=== PATIENT | female | born 2000 | race Caucasian/White ===

== ENCOUNTER 2024-10-05 09:25 | Emergency (ER) | payer MEDICAID, SELFPAY ==
[2024-10-05 09:27] VITALS: BP 123/56; PULSE 91; RESP 16; TEMP 36.4; O2SAT 98; BMI 36.6
--- NOTE | 2024-10-05 09:55 | US_ITS ---
STUDY: ABDOMINAL ULTRASOUND - RIGHT UPPER QUADRANT REASON FOR VISIT: Female, 24 years old Right upper quadrant pain, TECHNIQUE: Ultrasound evaluation of the right upper quadrant was performed with real-time and static buckley-scale imaging. TECHNICAL QUALITY: Adequate. COMPARISON: None. FINDINGS: Liver: The liver measures 15.6 cm. There is normal echogenicity of the liver. The bile ducts are within normal limits. There is hepatic color flow. The direction of portal flow is hepatopetal. There is no demonstrated mass lesion. Gallbladder: Normal distended gallbladder. The gallbladder wall measures 2.0 mm. There is a negative sonographic Fields''s sign. There is no pericholecystic fluid. There are no gallstones. Common Bile Duct (C.B.D.): The common bile duct measures 3.0 mm. Pancreas: Normal size of the head, body and tail of the pancreas. There is normal echogenicity of the pancreas. There is no demonstrated pancreatic mass or cyst. Right Kidney: Normal size of the right kidney. The right kidney measures 9.5 cm x 5.9 cm x 4.2 cm. Normal renal cortex. The right cortex measures 1.7 cm. There is no demonstrated renal mass or cyst. There is no right hydronephrosis. US/Gallbladder IMPRESSION: Normal right upper quadrant ultrasound examination. Electronically Signed: Felice Pineda MD at 11:16 EST ,
--- NOTE | 2024-10-05 10:00 | EDS_ITS ---
HPI History of Present Illness Chief Complaint: Abd Pain Narrative Narrative: Chief complaint and HPI: Right upper quadrant abdominal pain. 24-year-old female who is 17 weeks presents for evaluation of right upper quadrant abdominal pain. Patient does have gestational diabetes but otherwise has been unremarkable. Patient follows with [facility]. Patient states yesterday she developed some right upper quadrant abdominal pain that has worsened today. She has not taken anything for the pain. She endorses some baseline nausea. Denies any fever, chills, shortness of breath, chest pain, diarrhea, constipation, lower abdominal pain, vaginal bleeding, pelvic cramping. Review of systems: See HPI Medications: As listed on the chart Allergies: As listed on the chart PFSH: Per chart Vital signs: As listed on the chart. Reviewed. Physical exam: Gen: A&O x3, NAD Head: Normocephalic, atraumatic Eyes: No sclera icterus, conjunctiva clear ENT: Moist mucous membranes Neck: Trachea midline, No JVD CV: RRR, no murmurs, no peripheral edema Resp: Lungs CTA BL, no w/r/c GI: Abd soft, non-distended, tender to palpation in the right upper quadrant, negative Fields sign, negative McBurney, no r/r/g : No CVA tenderness Musc: Full ROM, no deformity Skin: Warm, dry Neuro: Alert, oriented, grossly intact, sensation intact Psych: Cooperative, appropriate mood and affect [facility] Allergy/AdvReac Type Severity Reaction Status Date / Time cephalexin (From Keflex) Allergy Mild Rash Verified 10/05/24 09:26 Social History Smoking Status: Never smoker EXAM Physical Exam Const Vital Signs: 10/05/24 09:27 10/05/24 11:26 10/05/24 12:47 Temperature 97.5 F L 97.9 F Temperature Source Temporal Pulse Rate 91 70 70 Respiratory Rate 16 16 16 Blood Pressure 123/56 H 120/58 L 120/58 L Blood Pressure Mean 78 78 78 Pulse Ox 98 98 98 Oxygen Delivery Method Room Air MDM MDM MDM Narrative Medical decision making narrative: 24-year-old female who is 17 weeks presents for evaluation of right upper quadrant abdominal pain. Differential diagnosis includes but is not limited to biliary colic, cholelithiasis, cholecystitis, GERD, pancreatitis. Patient is not having any lower abdominal pain, pelvic pain, or vaginal bleeding therefore I do not think any OB or lower abdominal ultrasound is needed at this time. Patient offered morphine but declined. Zofran and Tylenol ordered for pain. Gallbladder ultrasound ordered with labs. CBC without leukocytosis. Patient is has anemia with hemoglobin of 10. This is likely secondary to . Platelet count is unremarkable. CMP without NORMAN or transaminitis. Lipase unremarkable. Patient's glucose is 116. Ultrasound of the gallbladder is unremarkable. No gallstones. On reevaluation, patient's pain is improved. Again she denies any lower abdominal or pelvic pain. No vaginal bleeding. Patient's [facility] group at [facility] was consulted and patient was discussed with the cyber threat analyst on-call. Patient will follow-up in their office. She recommended heart tones as long as they are unremarkable patient stable to discharge home. heart tones 136. Patient stable to discharge home. Return precautions explained. Follow-up with [facility]. Tylenol as needed for pain. Impression: 1. Right upper quadrant abdominal pain 2. 17 weeks 3. Anemia Lab Data Labs: Laboratory Results - last 24 hr 10/05/24 10:05 WBC 7.2 RBC 3.51 L Hgb 10.0 L Hct 31.3 L MCV 89.2 MCH 28.5 MCHC 31.9 L RDW Std Deviation 50.5 H RDW Coeff of Adore 15.7 H Plt Count 240 MPV 11.0 Immature Gran % (Auto) 0.400 Neut % (Auto) 70.0 Lymph % (Auto) 19.6 Pine % (Auto) 5.5 Eos % (Auto) 3.9 Baso % (Auto) 0.6 Absolute Neuts (auto) 5.1 Absolute Lymphs (auto) 1.41 Nucleated RBC % 0 Sodium 136 Potassium 3.7 Chloride 105 Carbon Dioxide 23.0 Anion Gap 8 BUN 6 L Creatinine 0.57 Estim Creat Clear Calc 140.65 Est GFR (MDRD) Af Amer 167 Est GFR (MDRD) Non-Af 138 BUN/Creatinine Ratio 10.6 Glucose 116 H Calcium 9.0 Total Bilirubin 0.50 AST 20 ALT 10 L Alkaline Phosphatase 68 Total Protein 7.4 Albumin 2.6 L Globulin 4.8 H Albumin/Globulin Ratio 0.5 L Lipase 19 Radiography Diagnostic Testing: Clinical Impression(s) from Imaging Studies Gallbladder Ultrasound 10/05/24 09:55 IMPRESSION: Normal right upper quadrant ultrasound examination. Electronically Signed: Felice Pineda MD at 11:16 EST , Discharge Plan Triage Chief Complaint: Abd Pain ED Provider: Lonnie Kumari Dx/Rx/DC Orders Instructions: ED Abdominal Pain Unkn Cause Fem Primary Care Provider: Care Physician,No Primary Referrals: Sheryl Garvey MD [Med Staff - Active Staff] - 3-5 Days Care Physician,No Primary [Primary Care Provider] - Activity Restrictions/Additional Instructions: Follow-up with your [facility]. Return back to the ED if symptoms change or worsen. Okay for Tylenol as needed for pain. You did receive Tylenol here in the emergency department. Print Language: Azeri Disposition Disposition: Home, Self Care Discharge Date/Time: 10/05/24 12:47
[2024-10-05 10:13] LABS: Absolute Lymphocyte Count 1.41 X10^3/uL (0.83-4.51); Absolute Neutrophil Count 5.1 X10^3/uL (2.0-7.7); Basophil# 0.04 X10^3/uL; Basophil% 0.6 % (0-1); Eosinophil# 0.28 X10^3/uL; Eosinophils% 3.9 % (0-5); Hematocrit 31.3 % (37-47); Lymphocyte # 1.41 X10^3/ul (0.83-4.51); Lymphocyte % 19.6 % (19-41); Mean Corp Hgb Conc 31.9 g/dL (32-36); Mean Corpuscular Hgb 28.5 pg (27.0-32.0); Mean Corpuscular Volume 89.2 fL (81-99); Monocyte% 5.5 % (0-10); NRBC Flagged by Analyzer 0 % (0-5); Neutrophil # 5.05 X10^3/uL (2.7-7.7); Platelet Count 240 K/mm3 (150-450); RBC Distribution Width CV 15.7 % (11.6-14.6); RBC Distribution Width SD 50.5 fl (35.1-43.9); Red Blood Count 3.51 M/mm3 (4.2-5.4); White Blood Count 7.2 K/mm3 (4.4-11.0)
[2024-10-05] MEDS: Ondansetron 4 MG/2 ML Vial IV (10:24)
[2024-10-05] MEDS: Acetaminophen 500 MG Tablet 1000 MG PO (10:24)
[2024-10-05 10:28] LABS: ALB/GLOB Ratio 0.5 RATIO (0.9-2.4); AST(SGOT) 20 U/L (15-37); Alanine Aminotransfer ALT/SGPT 10 U/L (13-56); Albumin, Serum 2.6 g/dL (3.2-5.0); Alkaline Phosphatase 68 U/L (45-117); Anion Gap 8 (5-15); BUN 6 mg/dL (7-18); BUN/Creat Ratio 10.6 RATIO (10-20); Chloride 105 mmol/L (98-107); Creatinine, Serum 0.57 mg/dL (0.55-1.02); EST Glomerular Filtration Rate 138 mL/min (>60); Est Glom Filt Rate - Afr Amer 167 mL/min (>60); Estimated Creatinine Clearance 140.65 ml/min; Globulin 4.8 g/dL (2.2-4.2); Glucose 116 mg/dL (74-106); Lipase 19 U/L (13-75); Potassium 3.7 mmol/L (3.5-5.1); Protein, Total 7.4 g/dL (6.4-8.2); Sodium Level 136 mmol/L (136-145)
[2024-10-05 11:26] VITALS: BP 120/58; PULSE 70; RESP 16; O2SAT 98
[2024-10-05 12:47] VITALS: BP 120/58; PULSE 70; RESP 16; TEMP 36.6; O2SAT 98
== END 2024-10-05 12:47 | disposition home or self-care (01) ==
PROVIDERS: Emergency Provider Surgery; Visit Provider Surgery
DX: O26.892 Other specified pregnancy related conditions, second trimester (principal); R10.11 Right upper quadrant pain; O99.012 Anemia complicating pregnancy, second trimester; O24.419 Gestational diabetes mellitus in pregnancy, unspecified control; Z3A.17 17 weeks gestation of pregnancy
CPT/HCPCS: 76705; 80053; 83690; 85025; 96374; 99283; A4216; J2405

== ENCOUNTER 2024-10-07 10:16 | Emergency (ER) | payer MEDICAID, SELFPAY ==
[2024-10-07 10:17] VITALS: BP 109/62; PULSE 74; RESP 19; TEMP 36.4; O2SAT 100; BMI 36.7
--- NOTE | 2024-10-07 10:52 | EDS_ITS ---
HPI History of Present Illness Chief Complaint: Abd Pain Narrative Narrative: 24-year-old female, G2, P1 at approximately 17 weeks gestation presents with abdominal pain that she has had since Saturday. This was approximately 4 days ago when she started having more right upper quadrant abdominal pain associated with nausea. She has not had any vomiting. Last bowel movement was a few days ago. She denies any dysuria or hematuria. No fevers or chills. She was seen in the emergency department on Saturday, 2 days ago and told to return if it was worsening. She now states she is having more right lower quadrant pain. Sometimes food does make it worse. She has been taking Tylenol without relief. She states that she is unable to lie on either side secondary to pain. She denies any vaginal bleeding or cramping. PFSH PFS Home Medications ?Medication ?Instructions ?Recorded ?Last Taken ?Type NK 10/07/24 Unknown History Allergy/AdvReac Type Severity Reaction Status Date / Time cephalexin (From Keflex) Allergy Mild Rash Verified 10/05/24 09:26 Social History Smoking Status: Never smoker ROS ROS ED ROS Narrative Constitutional: No fever, no chills. HEENT: No sore throat. No neck pain. No rhinorrhea. Cardiovascular: No chest pain. No palpitations. No pedal edema. Respiratory: No cough, no shortness of breath. Abdominal: Right sided abdominal pain. Positive nausea. No vomiting. Genitourinary: No dysuria. No hematuria. Musculoskeletal: No myalgias. No arthralgias. Neurologic: No headaches. No dizziness. No lightheadedness. EXAM Physical Exam Narrative Exam Narrative: Afebrile. Vital signs noted. Nontoxic-appearing. Cardiovascular examination feels a regular rate and rhythm. Lungs clear to auscultation bilaterally. Abdomen soft and mildly tender in the right lower quadrant. No rebound or guarding. Positive bowel sounds. Neurological examination nonfocal and nonlateralizing. Const Vital Signs: 10/07/24 10:17 10/07/24 12:16 10/07/24 14:00 Temperature 97.6 F L Temperature Source Temporal Pulse Rate 74 68 81 Respiratory Rate 19 H 16 16 Blood Pressure 109/62 110/70 106/71 Blood Pressure Mean 77 83 82 Pulse Ox 100 100 99 Oxygen Delivery Method Room Air MDM MDM MDM Narrative Medical decision making narrative: Differential diagnosis includes but not limited to colitis versus diverticulitis versus appendicitis versus ureterolithiasis. I reviewed the patient's prior visit. She had a gallbladder ultrasound which was grossly unremarkable, no gallstones. Hence, I doubt cholecystitis. She had normal laboratory work. I discussed with her repeating her labs to see if there has been any change. I also initially discussed radiation exposure and CT imaging of the abdomen and pelvis with her given that she is 17 weeks gestation. She would like to hold off on any imaging currently until after discussion with [employer]. She usually sees the sound printer Kati Rolle at the [facility]. I reviewed her laboratory work and compared it to prior. Her white count remains normal at 7.0 with hemoglobin 10.0, platelet count normal at 277. Glucose is elevated 139 with a normal anion gap of 8. AST low at 11 and ALT low at 10 with a normal alk phos. Lipase is also normal. I doubt pancreatitis or gallstone as she had a normal gallbladder ultrasound 2 days ago on my review. Urinalysis is negative for infection or RBCs so I doubt kidney stone. Upon repeat examination her abdomen remains soft but she has tenderness over McBurney's point and in the right lower quadrant. I discussed patient with Dr. Garvey with [facility] [employer]. She agrees with the necessity of CT scanning to rule out appendicitis. I discussed risks benefit and radiation exposure with the patient and she would like to proceed with CT scanning. In discussion with the groundwater monitoring technician, it is better if she has p.o. and IV contrast. She was nauseated and still had tenderness without guarding or rebound so she was administered ondansetron. Her CT of the abdomen and pelvis is still pending. At this point in time, her CT scan will be checked by the oncoming physician, Dr. Campos will make final disposition on this patient. She is in stable condition. History & Record Review Discussion w/independent historian: Patient Lab Data Attestation: I reviewed the patient's lab results. Labs: Laboratory Results - last 24 hr 10/07/24 10/07/24 10:34 11:50 WBC 7.0 RBC 3.54 L Hgb 10.0 L Hct 31.9 L MCV 90.1 MCH 28.2 MCHC 31.3 L RDW Std Deviation 51.7 H RDW Coeff of Adore 15.7 H Plt Count 277 MPV 11.2 Immature Gran % (Auto) 0.300 Neut % (Auto) 72.2 H Lymph % (Auto) 19.6 [place] % (Auto) 4.7 Eos % (Auto) 2.8 Baso % (Auto) 0.4 Absolute Neuts (auto) 5.1 Absolute Lymphs (auto) 1.38 Nucleated RBC % 0 Sodium 136 Potassium 3.5 Chloride 106 Carbon Dioxide 22.0 Anion Gap 8 BUN 6 L Creatinine 0.59 Estim Creat Clear Calc 136.26 Est GFR (MDRD) Af Amer 161 Est GFR (MDRD) Non-Af 133 BUN/Creatinine Ratio 10.2 Glucose 139 H Calcium 9.0 Total Bilirubin 0.30 AST 11 L ALT 10 L Alkaline Phosphatase 68 Total Protein 7.7 Albumin 2.7 L Globulin 5.0 H Albumin/Globulin Ratio 0.5 L Lipase 27 Urine Color Yellow Urine Clarity Sl. Cloudy Urine pH 6.5 Ur Specific Bridger 1.015 Urine Protein 15 H Urine Glucose (UA) Normal Urine Ketones Negative Urine Occult Blood Negative Urine Nitrite Negative Urine Bilirubin Negative Urine Urobilinogen Normal Ur Leukocyte Esterase Negative Urine RBC 0 SEEN Urine WBC 0-5 SEEN Ur Squamous Epith Cells 5-10 SEEN Ur Transition Epith Cell 0-5 SEEN Urine Bacteria 3+ Urine Mucus 0 SEEN Discharge Plan Triage Chief Complaint: Abd Pain ED Provider: Jay Alvarez Dx/Rx/DC Orders Prescriptions: No Action NK Primary Care Provider: Care Physician,No Primary Referrals: Care Physician,No Primary [Primary Care Provider] - Print Language: Sammarinese
[2024-10-07 10:59] LABS: Absolute Lymphocyte Count 1.38 X10^3/uL (0.83-4.51); Absolute Neutrophil Count 5.1 X10^3/uL (2.0-7.7); Basophil# 0.03 X10^3/uL; Basophil% 0.4 % (0-1); Eosinophils% 2.8 % (0-5); Hematocrit 31.9 % (37-47); Lymphocyte # 1.38 X10^3/ul (0.83-4.51); Lymphocyte % 19.6 % (19-41); Mean Corp Hgb Conc 31.3 g/dL (32-36); Mean Corpuscular Hgb 28.2 pg (27.0-32.0); Mean Corpuscular Volume 90.1 fL (81-99); Mean Platelet Vol. 11.2 fl (6.2-12.0); Monocyte# 0.33 X10^3/uL; Monocyte% 4.7 % (0-10); NRBC Flagged by Analyzer 0 % (0-5); Neutrophil # 5.08 X10^3/uL (2.7-7.7); Neutrophil % 72.2 % (47-70); Platelet Count 277 K/mm3 (150-450); RBC Distribution Width CV 15.7 % (11.6-14.6); RBC Distribution Width SD 51.7 fl (35.1-43.9); Red Blood Count 3.54 M/mm3 (4.2-5.4)
[2024-10-07 11:15] LABS: ALB/GLOB Ratio 0.5 RATIO (0.9-2.4); AST(SGOT) 11 U/L (15-37); Alanine Aminotransfer ALT/SGPT 10 U/L (13-56); Albumin, Serum 2.7 g/dL (3.2-5.0); Alkaline Phosphatase 68 U/L (45-117); Anion Gap 8 (5-15); BUN 6 mg/dL (7-18); BUN/Creat Ratio 10.2 RATIO (10-20); Chloride 106 mmol/L (98-107); Creatinine, Serum 0.59 mg/dL (0.55-1.02); EST Glomerular Filtration Rate 133 mL/min (>60); Est Glom Filt Rate - Afr Amer 161 mL/min (>60); Estimated Creatinine Clearance 136.26 ml/min; Glucose 139 mg/dL (74-106); Lipase 27 U/L (13-75); Potassium 3.5 mmol/L (3.5-5.1); Protein, Total 7.7 g/dL (6.4-8.2); Sodium Level 136 mmol/L (136-145)
[2024-10-07] MEDS: Dicyclomine 10 MG Capsule 20 MG PO (11:51)
[2024-10-07 12:01] LABS: Mucous, Urine 0 SEEN /hpf (<or=2+); Red Blood Cells-Urine 0 SEEN /hpf (0-5)
[2024-10-07 12:16] VITALS: BP 110/70; PULSE 68; RESP 16; O2SAT 100
[2024-10-07 12:16] LABS: Color, Urine Yellow (Yellow); Glucose, Dipstick Normal (Normal); Ketone-Dipstick Negative (Negative); Leukocyte Esterase-Dipstick Negative /ul (Negative); Nitrite-Dipstick Negative (Negative); Occult Blood-Urine Negative /ul (Negative); Protein-Dipstick 15 mg/dl (Negative); Specific Gravity, Urine 1.015 (1.002-1.030); Urine Bilirubin Dipstick Negative (Negative); Urine Clarity Sl. Cloudy (Clear); Urine Urobilinogen Normal (Normal); Urine pH 6.5 (5.0 - 8.0)
[2024-10-07 12:44] LABS: Squamous Epithelial Cells - UA 5-10 SEEN /hpf (5-10)
[2024-10-07 12:45] LABS: Bacteria 3+ /hpf (None Seen); Transitional Epithelial - Ur 0-5 SEEN /hpf (0-5); White Blood Cells 0-5 SEEN /hpf (0-5)
[2024-10-07] MEDS: Ondansetron 4 MG/2 ML Vial IV (13:20)
[2024-10-07 14:00] VITALS: BP 106/71; PULSE 81; RESP 16; O2SAT 99
--- NOTE | 2024-10-07 15:00 | CT_ITS ---
STUDY: CT ABDOMEN AND PELVIS WITH CONTRAST REASON FOR EXAM: Female, 24 years old. RLQ pain with -- 17 weeks gestation RADIATION DOSAGE (If Supplied By Facility): CTDIvol = ( 19.79 ) mGy, DLP = ( 969.22 ) mGycm TECHNIQUE: IV 100mL Isovue-300 was administered. Transaxial images were obtained from the dome of the diaphragm to the symphysis pubis Multiplanar coronal and sagittal images were reformatted. The protocol utilizes one or more of the following dose reduction techniques: automated exposure control, adjustment of mA and/or kV according to patient size,and/or use of iterative reconstruction technique. COMPARISON: No relevant prior comparison study available FINDINGS: The visualized lung bases are unremarkable. The visualized portions of the heart are within normal limits. Normal liver. Normal gallbladder and extrahepatic biliary system. Normal spleen. Normal pancreas. Normal bilateral adrenal glands. Normal visualized stomach. Normal small intestine. No evidence of acute diverticulitis. The appendix is visualized and appears normal. Normal abdominal aorta. No retroperitoneal adenopathy. Normal right kidney. Normal left kidney. Normal urinary bladder. Intrauterine is seen better evaluated by ultrasound. Normal abdominal wall. Bilateral spondylolysis at L5 without evidence of spondylolisthesis. Depression of the superior endplate of L4 could be due to Schmorl''s node. CT/Abdomen/Pelvis WITH Contrast IMPRESSION: 1. No evidence of acute appendicitis or focal acute inflammatory process. 2. Intrauterine better evaluated by ultrasound. 3. Bilateral spondylolysis at L5. Electronically Signed: Rajiv Harp MD at 15:35 EST ,
[2024-10-07 16:09] VITALS: PULSE 75; RESP 18; TEMP 36.3; O2SAT 98
== END 2024-10-07 16:09 | disposition home or self-care (01) ==
PROVIDERS: Emergency Provider Emergency Medicine; Visit Provider Emergency Medicine
DX: O26.892 Other specified pregnancy related conditions, second trimester (principal); R10.11 Right upper quadrant pain; Z3A.17 17 weeks gestation of pregnancy

== ENCOUNTER 2025-02-24 16:23 | Outpatient (CLI) | payer MEDICAID, SELFPAY ==
[2025-02-24 16:57] VITALS: BMI 40.9
[2025-02-24 17:03] VITALS: BP 107/57; PULSE 76
[2025-02-24 17:04] VITALS: PULSE 79; RESP 16; TEMP 36.9; O2SAT 94
[2025-02-24] MEDS: Lactated Ringers 1,000 ML 999 ML IV (17:40)
--- NOTE | 2025-02-24 17:40 | OB.TRI.NOTE ---
HPI - General HPI Narrative KATIE RUIZ, is a 24 F at 37 weeks gestation here for cramping and contractions that started earlier this morning and have continued to increase. C/O headache with blurry vision at times. Positive movements. Denies any vaginal bleeding or loss of fluid. Patient is scheduled for repeat section. PFSH PFSH Home Medications ?Medication ?Instructions ?Recorded ?Last Taken ?Type aspirin 81 mg tablet,delayed 81 mg PO DAILY 02/24/25 02/22/25 20:00 History release 81 mg citalopram 20 mg tablet 20 mg PO DAILY 02/24/25 02/22/25 20:00 History 20 mg Allergy/AdvReac Type Severity Reaction Status Date / Time cephalexin (From Keflex) Allergy Mild Rash Verified 10/05/24 09:26 Social History Smoking Status: Never smoker NST FHR Rate Baby A Baseline: 135 Variability:: Moderate Accelerations:: 15 x 15 Decelerations:: None NST Reactive:: Yes FHR Category:: Category I Uterine Activity:: Irritability Assessment & Plan (1) 37 weeks gestation of : (2) Cramping affecting , antepartum: (3) History of delivery affecting : (4) Headache: PLAN: Plan BP 107/57 Start IV and give 1000 cc fluid bolus CE 0.5 cm/ thick/ posterior UA sent Cervical exam unchanged Headache resolved D/C home with follow up in office as scheduled Dr. Vincent aware of A&P
[2025-02-24 19:08] LABS: Color, Urine Yellow (Yellow); Glucose, Dipstick Normal (Normal); Ketone-Dipstick Negative (Negative); Leukocyte Esterase-Dipstick 25 /ul (Negative); Mucous, Urine 0 SEEN /hpf (<or=2+); Nitrite-Dipstick Negative (Negative); Occult Blood-Urine Negative /ul (Negative); Protein-Dipstick 15 mg/dl (Negative); Specific Gravity, Urine 1.025 (1.002-1.030); Urine Bilirubin Dipstick Negative (Negative); Urine Clarity Cloudy (Clear); Urine Urobilinogen Normal (Normal); Urine pH 6.5 (5.0 - 8.0)
[2025-02-24 19:19] LABS: Bedside Glucose 55 mg/dL (74-106)
[2025-02-24 19:38] LABS: Bedside Glucose 83 mg/dL (74-106)
[2025-02-24 20:08] LABS: Bacteria 2+ /hpf (None Seen); Red Blood Cells-Urine 0-5 SEEN /hpf (0-5); Squamous Epithelial Cells - UA 0-5 SEEN /hpf (5-10); White Blood Cells 5-10 SEEN /hpf (0-5)
--- OUTSIDE RECORDS SUMMARY | 2025-02-24 22:06 | XMS RPT_ITS | CCD ---
Author Organization [facility] Care Team Providers Care Resource Management Specialist Name Role Phone Unavailable Primary Care Provider UnavailRICCARDO Kurtz Attending Unavailable SELF Referring Unavailable ARIELLE ARIAS Attending Unavailable Unavailable Primary Care Provider UnavailDESTINI Morfin CNP Referring Unavailable DESTINI GRACE CNP Consulting Unavailable HUMA FARFAN DO Attending Unavailable HUMA FARFAN DO Primary Care Unavailable CSEHUMA ACOSTA DO Admitting Unavailable PROVIDER, UNKNOWN Consulting Unavailable PROVIDER, UNKNOWN Consulting Unavailable ARCENIO DINERO Attending Unavailable ARCENIO DINERO Primary Care Unavailable ARCENIO DINERO Admitting Unavailable DESTINI GRACE CNP Consulting Unavailable PROVIDER, UNKNOWN Consulting Unavailable PROVIDER, UNKNOWN Consulting Unavailable Carla Correia PA-C Primary Care Provider CARLA CORREIA Primary Care Unavailable MELISSA AGUILERA Referring Unavailable EDIE MAYER Attending Unavailable CARLA CORREIA Primary Care Unavailable Mayra Cam Admitting Unavail able Mayra Cam Attending Unavail able Care Physician, No Primary Primary Care Unava ilable Care Physician, No Primary Primary Care Unava ilable Lonnie Kumari Attending Unavailabl e Care Physician, No Primary Primary Care Unava ilable Jay Alvarez Attending Unavailable CARLA CORREIA Primary Care Unavailable ELBA KHANNA Referring Unavailable CARLA CORREIA Primary Care Unavailable ELBA KHANNA Referring Unavailable CARLA CORREIA Primary Care Unavailable ALFRED ARCOS Referring Unavailable CARLA CORREIA Primary Care Unavailable KATI ROLLE Attending Unavailable CARLA CORREIA Primary Care Unavailable ALFRED ARCOS Referring Unavailable CARLA CORREIA Primary Care Unavailable ALFRED ARCOS Referring Unavailable HILLS, CARLA D Primary Care Unavailable HAURYNENOELBA Referring Unavailable DAGGETT, CARLA D Primary Care Unavailable MELISSA AGUILERA Attending Unavailable ALFRED ARCOS Referring Unavailable DAGGETT, CARLA D Primary Care Unavailable MELISSA AGUILERA Attending Unavailable DAGGETT, CARLA D Primary Care Unavailable LALITO ROCHA Attending Unavailable ARLEEN ARCOS Referring Unavailable DAGGETT, CARLA D Primary Care Unavailable HAURY, ELBA Referring Unavailable DAGGETT, CARLA D Primary Care Unavailable HAURYELBA Referring Unavailable ALFRED ARCOS Attending Unavailable DAGGETT, CARLA D Primary Care Unavailable ALFRED ARCOS Attending Unavailable DAGGETT, CARLA D Primary Care Unavailable NADIAMELISSA MAY Referring Unavailable DAGGETT, CARLA D Primary Care Unavailable DAGGETT, CARLA D Primary Care Unavailable DAGGETT, CARLA D Primary Care Unavailable ALFRED ARCOS Referring Unavailable DAGGETT, CARLA D Primary Care Unavailable LALITO ROCHA Attending Unavailable DAGGETT, CARLA D Primary Care Unavailable MELISSA AGUILERA Referring Unavailable DAGGETT, CARLA D Primary Care Unavailable ALFRED ARCOS Referring Unavailable DAGGETT, CARLA D Primary Care Unavailable DAGGETT, CARLA D Primary Care Unavailable ALFRED ARCOS Referring Unavailable ALFRED ARCOS Attending Unavailable DAGGETT, CARLA D Primary Care Unavailable MAYRA FREY Attending Unavail able DAGGETT, CARLA D Primary Care Unavailable ALFRED ARCOS Attending Unavailable DAGGETT, CARLA D Primary Care Unavailable PLOTTS, KATI Referring Unavailable DAGGETT, CARLA D Primary Care Unavailable ELBA KHANNA Referring Unavailable DAGGETT, CARLA D Primary Care Unavailable PLOTKATI FREEMAN Referring Unavailable DAGGETT, CARLA D Primary Care Unavailable PLOTTS, KATI Referring Unavailable DAGGETT, CARLA D Primary Care Unavailable MELISSA AGUILERA Attending Unavailable DAGGETT, CARLA D Primary Care Unavailable PLOTTS, KATI Referring Unavailable DAGGETT, CARLA D Primary Care Unavailable LALITO ROCHA Attending Unavailable DAGGETT, CARLA D Primary Care Unavailable ALFRED ARCOS Referring Unavailable DAGGETT, CARLA D Primary Care Unavailable GEE CARLIN Referring Unavailable ALFRED ARCOS Referring Unavailable DAGGETT, CARLA D Primary Care Unavailable GEE CARLIN Attending Unavailable ALFRED ARCOS Referring Unavailable DAGGETT, CARLA D Primary Care Unavailable DAGGETT, CARLA D Primary Care Unavailable YONG MEDEROS Referring Unavailable SURESH, CARLA D Primary Care Unavailable SURESH CARLA Ofelia Primary Care Unavailable ALFRED ARCOS Referring Unavailable CARLA CORREIA Ofelia Primary Care Unavailable LALITO ROCHA Attending Unavailable SURESH CARLA Ofelia Primary Care Unavailable ALFRED ARCOS Referring Unavailable SURESH CARLA D Primary Care Unavailable ALFRED ARCOS Referring Unavailable SURESH CARLA D Primary Care Unavailable ALFRED ARCOS Referring Unavailable MARK CORREIARAUL Gilbert Primary Care Unavailable ELBA KHANNA Referring Unavailable ALFRED ARCOS Attending Unavailable SURESH CARLA Ofelia Primary Care Unavailable ELBA KHANNA Referring Unavailable ALFRED ARCOS Attending Unavailable Allergies Allergy Classification Reported Allergen(s) Allergy Type Date of Onset Reaction(s) Facility (20 sources) Cephalexin; Translations: [CEPHALEXIN] Drug Allergy 05-01-2022 [facility] (1 source) Cephalexin Drug Allergy [facility] (1 source) Cephalexin Drug Allergy 10-05-2024 [facility] Repository Medications Current Medications Medication Drug Class(es) Dates Sig (Normalized) Sig (Original) [id number] 200 actuat albuterol 0.09 mg/actuat metered dose inhaler (20 sources) beta2-Adrenergic Agonist Start: 05-17-2024 take 2 puff(s) by inhalation every four hours as needed for wheezing albuterol HFA (PROVENTIL HFA, VENTOLIN HFA) 90 mcg/actuation inhaler Indications: Bronchitis Inhale 2 Puffs as instructed every 4 hours as needed for wheezing/shortnes s of breath. 8 g 05/17/2024 Active Start: 02-12-2024 End: 05-17-2024 take 2 puff(s) by mouth every four to six hours as needed for wheezing albuterol HFA (PROVENTIL HFA, VENTOLIN HFA) 90 mcg/actuation inhaler INHALE 2 PUFFS BY MOUTH EVERY 4 TO 6 HOURS NEEDED FOR SHORTNESS OF BREATH FOR WHEEZING 02/12/2024 05/17/2024 Discontinued amoxicillin 875 mg oral tablet (3 sources) Penicillin-class Antibacterial Start: 10-20-2024 End: 10-30-2024 take 1 tablet by mouth twice daily amoxicillin (AMOXIL) 875 mg tablet Indications: Acute non-recurrent sinusitis, unspecified location Take 1 tablet by mouth two times a day for 10 days. 20 tablet 10/20/2024 10/30/2024 Active amoxicillin 875 mg / clavulanate 125 mg oral tablet (4 sources) Penicillin-class Antibacterial Start: 08-15-2024 End: 08-20-2024 take 1 tablet by mouth twice daily amoxicillin-clavul anate potassium (AUGMENTIN) 875-125 mg per tablet Indications: Bacterial sinusitis Take 1 tablet by mouth two times a day for 5 days. 10 tablet 08/15/2024 08/20/2024 Active Start: 07-24-2024 End: 07-31-2024 take 1 tablet by mouth twice daily amoxicillin-clavulanate potassium (AUGMENTIN) 875-125 mg per tablet Indications: Rhinosinusitis Take 1 tablet by mouth two times a day for 7 days. 14 tablet 07/24/2024 07/31/2024 Active Start: 03-23-2024 End: 03-30-2024 take 1 tablet by mouth twice daily amoxicillin-clavulanate potassium (AUGMENTIN) 875-125 mg per tablet Indications: Acute non-recurrent frontal sinusitis , Acute otitis media, left Take 1 tablet by mouth two times a day for 7 days. 14 tablet 0 03/23/2024 03/30/2024 Active Start: 05-01-2022 End: 05-11-2022 take 1 tablet by mouth twice daily amoxicillin-clavulanic acid (AUGMENTIN) 875-125 mg per tablet Indications: Acute non-recurrent frontal sinusitis Take 1 tablet by mouth twice daily for 10 days. 20 tablet 0 05/01/2022 05/11/2022 Active 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: [facility] for 10 days. aspirin 81 mg delayed release oral tablet (20 sources) Platelet Aggregation Inhibitor, Nonsteroidal Anti-inflammatory Drug Start: 4 take 1 tablet by mouth once daily aspirin, enteric coated (ECOTRIN LOW STRENGTH) 81 mg EC tablet Indications: with uncertain dates in first trimester (HCC) , Previous delivery affecting , antepartum (HCC) Take 1 tablet by mouth once daily. 90 tablet 3 08/03/2024 Active benzonatate 100 mg oral capsule (1 source) Non-narcotic Antitussive Start: End: 4 take 1 capsule by mouth three times daily as needed benzonatate (TESSALON PERLES) 100 mg capsule Indications: Acute cough Take 1 capsule by mouth three times a day as needed for up to 7 days. 21 capsule 06/19/2024 06/26/2024 Active Blood-Glucose Meter (20 sources) Start: Blood-Glucose Meter Indications: Diet controlled gestational diabetes mellitus (GDM) in second trimester ([facility]) Use as directed to check glucose levels up to seven times daily. 1 Each 09/18/2024 Active Start: 09-18-2024 Blood-Glucose Meter Indications: Diet controlled gestational diabetes mellitus (GDM) in second trimester Use as directed to check glucose levels up to seven times daily. 1 Each 09/18/2024 Active citalopram 20 mg oral tablet (20 sources) Serotonin Reuptake Inhibitor Start: 07-31-2024 take 1 tablet by mouth once daily citalopram (CELEXA) 20 mg tablet Take 20 mg by mouth once daily. 07/31/2024 Active diphenhydrAMINE hydrochloride 25 mg oral capsule (20 sources) Histamine-1 Receptor Antagonist Start: 12-25-2024 take 1 capsule by mouth every twenty-four hours as needed diphenhydrAMINE (UNISOM SLEEPMINIS) 25 mg capsule Take 1 capsule by mouth at bedtime as needed. 48 capsule 12/25/2024 Active End: 12-25-2024 diphenhydramine HCl (BENADRY L ALLERGY ORAL) Take by mouth daily at bedtime. 12/25/2024 Discontinued diphenhydramine HCl (BENADRYL ALLERGY ORAL) Take by mouth daily at bedtime. Active doxycycline hyclate 100 mg oral capsule (1 source) Tetracycline-class Drug Start: 05-17-2024 End: 05-24-2024 take 1 capsule by mouth twice daily doxycycline hyclate (VIBRAMYCIN) 100 mg capsule Indications: Acute non-recurrent pansinusitis , Lower respiratory infection Take 1 capsule (100 mg) by mouth two times a day for 7 days. 14 capsule 05/17/2024 05/24/2024 Active famotidine 20 mg oral tablet (20 sources) Histamine-2 Receptor Antagonist Start: 11-06-2024 take 1 tablet by mouth twice daily famotidine (PEPCID) 20 mg tablet Take 1 tablet by mouth two times a day. 60 tablet 5 11/06/2024 Active ferrous sulfate 325 mg oral tablet (20 sources) Start: 12-03-2024 take 1 tablet by mouth every other day ferrous sulfate 325 mg (65 mg iron) tablet Take 1 tablet by mouth every other day. 12/03/2024 Active fluticasone propionate 0.05 mg/actuat metered dose nasal spray (20 sources) Corticosteroid Start: 08-10-2024 take 2 spray(s) by mouth once daily fluticasone (FLONASE) 50 mcg/actuation nasal spray Indications: URI, acute Use 2 Sprays in each nostril once daily. Rinse mouth after use. 1 Each 08/10/2024 Active Start: 03-23-2024 End: 07-24-2024 take 1 spray(s) nasal route once daily fluticasone (FLONASE ALLERGY RELIEF) 50 mcg/actuation nasal spray Indications: Acute non-recurrent frontal sinusitis Use 1 [place] in each nostril once daily. 1 Each 03/23/2024 07/24/2024 Discontinued (Course of therapy completed) Inhalational Spacing Device (1 source) Start: 05-17-2024 End: 05-17-2024 Inhalational Spacing Device Indications: Bronchitis 1 Device one time only for 1 dose. 1 Each 05/17/2024 05/17/2024 Active 3 ml insulin isophane, human 100 unt/ml pen injector (20 sources) Start: 02-10-2025 insulin NPH (H UMULIN N NPH INSULIN KWIKPEN) 100 unit/mL (3 mL) injection pen 32 units at bedtime 5 each 02/10/2025 Active Start: 12-28-2024 End: 01-21-2025 insulin NPH (HUMULIN N NPH I NSULIN KWIKPEN) 100 unit/mL (3 mL) injection pen 28 units at bedtime 5 each 01/21/2025 Active Start: 11-10-2024 End: 12-28-2024 insulin NPH (HUMULIN N NPH I NSULIN KWIKPEN) 100 unit/mL (3 mL) injection pen 25 units at bedtime 5 Each 11/10/2024 12/07/2024 Discontinued Start: 11-01-2024 End: 11-10-2024 insulin NPH (HUMULIN N NPH I NSULIN KWIKPEN) 100 unit/mL (3 mL) injection pen 22 units at bedtime 5 Each 11/01/2024 11/10/2024 Discontinued Start: 10-24-2024 End: 11-01-2024 insulin NPH (HUMULIN N NPH I NSULIN KWIKPEN) 100 unit/mL (3 mL) injection pen 15 units at bedtime 5 Each 10/24/2024 11/01/2024 Discontinued 3 ml insulin lispro 100 unt/ml pen injector (20 sources) Insulin Analog Start: 12-07-2024 End: 01-21-2025 insulin lispro (HUMALOG KWIKPEN) 100 unit/mL 5-10-10 units prior to meals + scale upto 55 units/day . 10 each 01/21/2025 Active Start: 11-01-2024 End: 12-07-2024 insulin lispro (HUMALOG KWIK PEN) 100 unit/mL 5-8-8 units prior to meals + scale. 5 Each 11/01/2024 12/07/2024 Discontinued Start: 10-24-2024 End: 11-01-2024 insulin lispro (HUMALOG KWIK PEN) 100 unit/mL 5 units prior to meals 5 Each 10/24/2024 11/01/2024 Discontinued isopropyl alcohol 0.7 ml/ml medicated pad (20 sources) Start: 09-18-2024 alcohol swabs (ALCOHOL PREP PADS) Indications: Diet controlled gestational diabetes mellitus (GDM) in second trimester (HCC) Use as directed to check glucose levels up to seven times daily. 200 Each 8 09/18/2024 Active metoclopramide 5 mg oral tablet (6 sources) Dopamine-2 Receptor Antagonist Start: 02-04-2025 take 1 tablet by mouth every six hours as needed metoclopramide HCl (REGLAN) 5 mg tablet Take 1 tablet by mouth four times a day as needed (headache, nausea). 30 tablet 02/04/2025 Active polymyxin b [id number] unt/ml / trimethoprim 1 mg/ml ophthalmic solution (1 source) Dihydrofolate Reductase Inhibitor Antibacterial, Polymyxin-class Antibacterial Start: 08-15-2024 End: 08-22-2024 take 1 drop(s) into the eye(s) every four hours trimethoprim-polymy patricia (POLYTRIM) 10,000 unit- 1 mg/mL ophthalmic solution Indications: Bacterial conjunctivitis Use 1 Drop in both eyes every 4 hours for 7 days. 10 mL 08/15/2024 08/22/2024 Active predniSONE 20 mg oral tablet (1 source) Start: 05-17-2024 End: 05-22-2024 take 2 tablets by mouth once daily predniSONE (DELTASONE) 20 mg tablet Indications: Bronchitis Take 2 tablets by mouth once daily for 5 days. 10 tablet 05/17/2024 05/22/2024 Active no115/iron/folic acid ( 19 ORAL) (20 sources) take 1 tablet by mouth once daily no115/iron/folic acid ( 19 ORAL) Take 1 tablet by mouth once daily. Active Completed/Discontinued Medications Medication Drug Class(es) Dates Sig (Normalized) Sig (Original) busPIRone hydrochloride 10 mg oral tablet (7 sources) Start: 01-31-2022 End: 07-24-2024 take 1 tablet by mouth three times daily for anxiety busPIRone (BUSPAR) 10 mg tablet TAKE 1 TABLET BY MOUTH THREE TIMES DAILY FOR ANXIETY 01/31/2022 07/24/2024 Discontinued (Discontinued by another Health Care Provider) 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: TAKE 1 TABLET BY ZULY THREE TIMES DAILY FOR ANXIETY DULoxetine 60 mg delayed release oral capsule (5 sources) Serotonin and Norepinephrine Reuptake Inhibitor Start: 06-04-2024 End: 08-03-2024 take 1 capsule by mouth once daily DULoxetine (CYMBALTA) 60 mg capsule Take 60 mg by mouth once daily. 06/04/2024 08/03/2024 Discontinued (Course of therapy completed) escitalopram 20 mg oral tablet (3 sources) Serotonin Reuptake Inhibitor Start: 03-03-2024 End: 06-19-2024 take 1 tablet by mouth once escitalopram oxalate (LEXAPRO) 20 mg tablet Take 1 tablet by mouth every afternoon. 03/03/2024 06/19/2024 Discontinued (Other) 12 hr guaiFENesin 600 mg extended release oral tablet (6 sources) Start: 02-12-2024 End: 07-24-2024 take 1 tablet by mouth twice daily as needed for congestion MUCUS RELIEF ER 600 mg 12 hr tablet TAKE 1 TABLET BY MOUTH TWICE DAILY NEEDED FOR CONGESTION 02/12/2024 07/24/2024 Discontinued (Course of therapy completed) 10 ml iron sucrose 20 mg/ml injection (4 sources) Parenteral Iron Replacement Start: 01-25-2025 End: 01-25-2025 200 mg, INTRAVENOUS, ONCE, 1 dose, On Sat01/25/25 at 1330, May administer up to 200 mg via IV push over 5-10 minutes. Please conduct a 30 minute post-dose observation. Start: 01-20-2025 End: 01-20-2025 200 mg, INTRAVENOUS, ONCE, 1 dose, On Sat01/20/25 at 1330, May administer up to 200 mg via IV push over 5-10 minutes. Please conduct a 30 minute post-dose observation. Start: 01-18-2025 End: 01-18-2025 200 mg, INTRAVENOUS, ONCE, 1 dose, On Sat01/18/25 at 1400, May administer up to 200 mg via IV push over 5-10 minutes. Please conduct a 30 minute post-dose observation. Start: 01-12-2025 End: 01-12-2025 200 mg, INTRAVENOUS, ONCE, 1 dose, On Sat01/12/25 at 1400, May administer up to 200 mg via IV push over 5-10 minutes. Please conduct a 30 minute post-dose observation. lamoTRIgine 100 mg oral tablet (7 sources) Mood Stabilizer, Anti-epileptic Agent Start: 04-27-2022 End: 07-24-2024 lamoTRIgine (LAMICTAL) 100 mg tablet 04/27/2022 07/24/2024 Discontinued (Course of therapy completed) QUEtiapine 25 mg oral tablet (20 sources) Atypical Antipsychotic Start: 04-27-2022 End: 11-06-2024 QUEtiapine (SEROQUEL) 25 mg tablet 04/27/2022 11/06/2024 Discontinued (Other) 24 hr venlafaxine 150 mg extended release oral capsule (4 sources) Serotonin and Norepinephrine Reuptake Inhibitor Start: 04-27-2022 End: 06-19-2024 venlafaxine ER (EFFEXOR XR) 150 mg 24 hr capsule 04/27/2022 06/19/2024 Discontinued (Other) Problems Active Problems Problem Classification Problem Date Documented Da te Episodic/Chronic Anxiety disorders (20 sources) Generalized anxiety disorder; Translations: [Generalized anxiety disorder] Onset: 07-11-2024 07-11-2024 Chronic Asthma (20 sources) Asthma; Translations: [Unspecified asthma, uncomplicated] 08-03-2024 Chronic Cancer of prostate (2 sources) Malignant tumor of prostate; Translations: [Malignant neoplasm of prostate] Onset: 01-12-2025 01-12-2025 Chronic Chronic obstructive pulmonary disease and bronchiectasis (2 sources) Bronchitis; Translations: [Bronchitis, not specified as acute or chronic] Onset: 05-17-2024 05-17-2024 Episodic Deficiency and other anemia (1 source) Iron deficiency anemia, unspecified; Translations: [Maternal iron deficiency anemia complicating , third trimester (HCC)] Onset: 12-30-2024 Episodic Diabetes or abnormal glucose tolerance complicating ; childbirth; or the puerperium (20 sources) Diabetes mellitus in mother complicating , childbirth AND/OR puerperium; Translations: [Unspecified pre-existing diabetes mellitus in , second trimester] Onset: 09-18-2024 10-09-2024 Chronic Diabetes or abnormal glucose tolerance complicating ; childbirth; or the puerperium (20 sources) History of gestational diabetes mellitus; Translations: [Personal history of gestational diabetes] Onset: 08-03-2024 Resolved: 11-06-2024 08-03-2024 Episodic Headache; including migraine (1 source) Headache; including migraine; Translations: [Headache in , antepartum, third trimester (HCC)] Onset: 02-04-2025 Immunizations and screening for infectious disease (2 sources) Vaccination needed; Translations: [Encounter for immunization] Onset: 01-07-2025 01-07-2025 Episodic Inflammation; infection of eye (except that caused by tuberculosis or sexually transmitteddisease) (1 source) Bacterial conjunctivitis; Translations: [Unspecified conjunctivitis] 08-15-2024 Episodic Menstrual disorders (1 source) Missed period; Translations: [Irregular menstruation, unspecified] 07-11-2024 Chronic Mood disorders (20 sources) Moderate recurrent major depression; Translations: [Major depressive disorder, recurrent, moderate] Onset: 07-11-2024 07-11-2024 Chronic Other complications of ; puerperium affecting management of mother (1 source) Suspected disorder; Translations: [Maternal care for (suspected) abnormality and damage, unspecified, fetus 1] 11-11-2024 Episodic Other complications of (20 sources) Obesity; Translations: [Obesity complicating , unspecified trimester] Onset: 08-03-2024 08-03-2024 Chronic Other complications of (20 sources) Anemia in mother complicating , childbirth AND/OR puerperium; Translations: [Anemia complicating , second trimester] Onset: 09-15-2024 09-15-2024 Chronic Other complications of (1 source) Obesity complicating , unspecified trimester; Translations: [Obesity during (HCC)] Onset: 08-03-2024 Chronic Other complications of (2 sources) Anemia complicating , third trimester; Translations: [Anemia complicating , third trimester (HCC)] Onset: 12-30-2024 Chronic Other complications of (20 sources) High risk ; Translations: [Supervision of high risk , unspecified, first trimester] Onset: 08-03-2024 08-03-2024 Episodic Other complications of (1 source) Headache; Translations: [Other specified related conditions, third trimester] 02-04-2025 Episodic Other complications of (1 source) Supervision of high risk , unspecified, third trimester; Translations: [Supervision of high risk in third trimester ([facility])] Onset: 02-11-2025 Episodic Other complications of (1 source) Other specified related conditions, unspecified trimester; Translations: [Rh negative state in antepartum period ([facility])] Onset: 02-11-2025 Episodic Other complications of (1 source) Other specified related conditions, third trimester; Translations: [Headache in , antepartum, third trimester ([facility])] Onset: 02-04-2025 Episodic Other complications of (1 source) Supervision of high risk , unspecified, second trimester; Translations: [Supervision of high risk in second trimester ([facility])] Onset: 12-25-2024 Episodic Other lower respiratory disease (1 source) Lower respiratory tract infection; Translations: [Unspecified acute lower respiratory infection] 05-17-2024 Episodic Other lower respiratory disease (1 source) Unspecified acute lower respiratory infection; Translations: [Lower respiratory infection] Onset: 05-17-2024 Episodic Other lower respiratory disease (3 sources) Cough; Translations: [Acute cough] 06-19-2024 Episodic Other screening for suspected conditions (not mental disorders or infectious disease) (10 sources) Follow-up status; Translations: [Encounter for test, result unknown] Onset: 01-22-2025 07-11-2024 Episodic Other upper respiratory infections (2 sources) Chronic sinusitis, unspecified; Translations: [Unspecified sinusitis (chronic)] 07-24-2024 Chronic Other upper respiratory infections (8 sources) Acute frontal sinusitis; Translations: [Acute frontal sinusitis, unspecified] Onset: 03-23-2024 Episodic Otitis media and related conditions (2 sources) Acute left otitis media; Translations: [Otitis media, unspecified, left ear] Onset: 03-23-2024 03-23-2024 Episodic Previous (2 sources) Maternal care for unspecified type scar from previous delivery; Translations: [Previous delivery affecting , antepartum (HCC)] Onset: 09-11-2024 Episodic Residual codes; unclassified (1 source) First trimester ; Translations: [Less than 8 weeks gestation of ] 08-03-2024 Episodic Residual codes; unclassified (2 sources) Gestation period, 13 weeks; Translations: [13 weeks gestation of ] 09-11-2024 Episodic Residual codes; unclassified (1 source) Gestation period, 14 weeks; Translations: [14 weeks gestation of ] 09-17-2024 Episodic Residual codes; unclassified (2 sources) Gestation period, 17 weeks; Translations: [17 weeks gestation of ] 10-09-2024 Episodic Residual codes; unclassified (2 sources) Gestation period, 21 weeks; Translations: [21 weeks gestation of ] 11-06-2024 Episodic Residual codes; unclassified (2 sources) Gestation period, 25 weeks; Translations: [25 weeks gestation of ] 12-03-2024 Episodic Residual codes; unclassified (1 source) Gestation period, 28 weeks; Translations: [28 weeks gestation of ] 12-25-2024 Episodic Residual codes; unclassified (1 source) Gestation period, 30 weeks; Translations: [30 weeks gestation of ] 01-07-2025 Episodic Residual codes; unclassified (3 sources) Gestation period, 32 weeks; Translations: [32 weeks gestation of ] 01-22-2025 Episodic Residual codes; unclassified (2 sources) Gestation period, 33 weeks; Translations: [33 weeks gestation of ] 01-28-2025 Episodic Residual codes; unclassified (2 sources) Gestation period, 34 weeks; Translations: [34 weeks gestation of ] 02-04-2025 Episodic Residual codes; unclassified (1 source) 35 weeks gestation of ; Translations: [35 weeks gestation of (HCC)] Onset: 02-11-2025 Episodic Residual codes; unclassified (1 source) Unspecified blood type, Rh negative; Translations: [Rh negative state in antepartum period ([facility])] Onset: 02-11-2025 Episodic Residual codes; unclassified (1 source) 34 weeks gestation of ; Translations: [34 weeks gestation of ([facility])] Onset: 02-04-2025 Episodic Residual codes; unclassified (1 source) History of uterine scar from previous surgery; Translations: [Previous section] Onset: 01-28-2025 Episodic Residual codes; unclassified (1 source) 33 weeks gestation of ; Translations: [33 weeks gestation of ([facility])] Onset: 01-28-2025 Episodic Residual codes; unclassified (1 source) 32 weeks gestation of ; Translations: [32 weeks gestation of ([facility])] Onset: 01-22-2025 Episodic Residual codes; unclassified (1 source) 30 weeks gestation of ; Translations: [30 weeks gestation of ([facility])] Onset: 01-07-2025 Episodic Residual codes; unclassified (1 source) 25 weeks gestation of ; Translations: [25 weeks gestation of ([facility])] Onset: 12-25-2024 Episodic Unclassified (20 sources) [facility] - [facility]ON Onset: 08-03-2024 08-03-2024 Unclassified (20 sources) Education - [place] Onset: 08-03-2024 08-03-2024 Unclassified (1 source) Acute cough; Translations: [Acute cough] Onset: 06-19-2024 Past or Other Problems Problem Classification Problem Date Documented Da te Episodic/Chronic Diabetes mellitus without complication (20 sources) High hemoglobin A1c level; Translations: [Other abnormal glucose] Onset: 09-15-2024 Resolved: 11-06-2024 09-15-2024 Episodic Genitourinary symptoms and ill-defined conditions (1 source) Dysuria; Translations: [Dysuria] Onset: 07-22-2023 Episodic Other complications of (1 source) Other specified related conditions, second trimester; Translations: [Other specified related conditions, second trimester] Onset: 10-28-2024 Episodic Other and delivery including normal (6 sources) with uncertain dates; Translations: [Encounter for supervision of normal , unspecified, first trimester] Onset: 08-03-2024 08-03-2024 Episodic Residual codes; unclassified (1 source) 14 weeks gestation of ; Translations: [14 weeks gestation of ] Onset: 10-09-2024 Episodic Residual codes; unclassified (1 source) Less than 8 weeks gestation of ; Translations: [Less than 8 weeks gestation of ] Onset: 09-11-2024 Episodic Urinary tract infections (1 source) Urinary tract infection, site not specified; Translations: [Urinary tract infection, site not specified] Onset: 07-22-2023 Episodic Results Test Name Value Interpretation Reference Range Facility [facility] 02-20-2025 [facility] Telephone (ENDOAL) VAL RUIZ ([id number]) 2000 F Date Time Provider Department 02/20/25 LALITO ROCHA ENDOAL During your visit today, we recorded the following information about you: Lalito Rocha DO 02/20/2025 7:45 AM Signed Reviewed BG data- responded as follows: Good morning- I reviewed your BG data- these numbers remain at goal for - continue your current regimen: NPH 32 units at bedtime Humalog 5-10-10 units prior to meals respectively, + 8 units of Humalog with higher carb meals. Will review again next week- thanks! KB Allergies As of Date: 02/20/2025 Noted Allergy Reaction CEPHALEXIN 05/01/2022 2 - Rash Date Reviewed: 02/19/2025 Reviewed by: Yamila Azar MA - Fully Assessed Reason for Visit: Blood Sugar Reading [1269] Prescriptions as of 02/20/2025 - insulin NPH (HUMULIN N NPH INSULIN KWIKPEN) 100 unit/mL (3 mL) injection pen 32 units at bedtime - metoclopramide HCl (REGLAN) 5 mg tablet Take 1 tablet by mouth four times a day as needed (headache, nausea). - insulin lispro (HUMALOG KWIKPEN) 100 unit/mL 5-10-10 units prior to meals + scale upto 55 units/day . - diphenhydrAMINE (UNISOM SLEEPMINIS) 25 mg capsule Take 1 capsule by mouth at bedtime as needed. - ferrous sulfate 325 mg (65 mg iron) tablet Take 1 tablet by mouth every other day. - famotidine (PEPCID) 20 mg tablet Take 1 tablet by mouth two times a day. - Insulin Montgomery, Disposable, (PEN NEEDLE) 32 gauge x 5/32 Use to inject insulin up to 4 times per day. - Blood-Glucose Meter Use as directed to check glucose levels up to seven times daily. - blood sugar diagnostic test strip Use as directed to check glucose levels up to seven times daily. - Lancets Use as directed to check glucose levels up to seven times daily. - alcohol swabs (ALCOHOL PREP PADS) Use as directed to check glucose levels up to seven times daily. - fluticasone (FLONASE) 50 mcg/actuation nasal spray Use 2 Sprays in each nostril once daily. Rinse mouth after use. - aspirin, enteric coated (ECOTRIN LOW STRENGTH) 81 mg EC tablet Take 1 tablet by mouth once daily. - citalopram (CELEXA) 20 mg tablet Take 20 mg by mouth once daily. - no115/iron/folic acid ( 19 ORAL) Take 1 tablet by mouth once daily. - albuterol HFA (PROVENTIL HFA, VENTOLIN HFA) 90 mcg/actuation inhaler Inhale 2 Puffs as instructed every 4 hours as needed for wheezing/shortness of breath. Problem List As Of Date 02/20/2025 Noted Resolved Depression, major, recurrent, moderate (HCC) [F*07/11/2024 Generalized anxiety disorder [F41.1] 07/11/2024 Bipolar 1 disorder, mixed (HCC) [F31.60] 08/03/2024 Asthma [J45.909] Obesity during [O99.210] 08/03/2024 History of delivery [Z98.891] 08/03/2024 Anxiety [F41.9] 08/03/2024 History of gestational diabetes mellitus (GDM) *08/03/2024 11/06/2024 Elevated hemoglobin A1c [R73.09] 09/15/2024 11/06/2024 Anemia complicating , second trimester*09/15/2024 Elevated glucose tolerance test [R73.09] 09/18/2024 Pre-existing diabetes mellitus in in *09/18/2024 Maternal iron deficiency anemia complicating pr*12/30/2024 Encounter Status:Closed by LALITO ROCHA on 02/20/25 Normal [facility] Examination level ultrasound on 02-19-2025 [facility] Radiology Study observation (narrative) [facility] HISTORY PHYSICALon HISTORY PHYSICAL HNO ID: [id number] Author: MAYRA FREY MD Service: ? Author Type: Physician Type: H&P Filed: 02/19/2025 13:07 Note Text: Pre-Op History and Physical HPI: The patient is a 24 year old female presenting for pre-operative visit. She is scheduled for , for repeat elective cs at 38 weeks- type 2 DM, obesity, h/o CS on 03/05/25. Procedure discussed along with risks, benefits and complications. Other alternatives discussed for management. Consent form signed? Yes. PAST MEDICAL HISTORY Diagnosis Date Asthma (HCC) Bipolar PAST SURGICAL HISTORY Procedure Laterality Date SECTION HX 07/08/2020 primary d/t Gestational diabetes- suspected LGA TONSILLECTOMY AND ADENOIDECTOMY 2005 Current Outpatient Medications Medication Sig Dispense Refill insulin NPH (HUMULIN N NPH INSULIN KWIKPEN) 100 unit/mL (3 mL) injection pen 32 units at bedtime 5 each 11 metoclopramide HCl (REGLAN) 5 mg tablet Take 1 tablet by mouth four times a day as needed (headache, nausea). 30 tablet 0 insulin lispro (HUMALOG KWIKPEN) 100 unit/mL 5-10-10 units prior to meals + scale upto 55 units/day . 10 each 11 diphenhydrAMINE (UNISOM SLEEPMINIS) 25 mg capsule Take 1 capsule by mouth at bedtime as needed. 48 capsule 0 ferrous sulfate 325 mg (65 mg iron) tablet Take 1 tablet by mouth every other day. famotidine (PEPCID) 20 mg tablet Take 1 tablet by mouth two times a day. 60 tablet 5 Insulin Montgomery, Disposable, (PEN NEEDLE) 32 gauge x 5/32 Use to inject insulin up to 4 times per day. 100 Each 5 Blood-Glucose Meter Use as directed to check glucose levels up to seven times daily. 1 Each 0 blood sugar diagnostic test strip Use as directed to check glucose levels up to seven times daily. 200 Strip 8 Lancets Use as directed to check glucose levels up to seven times daily. 200 Each 8 alcohol swabs (ALCOHOL PREP PADS) Use as directed to check glucose levels up to seven times daily. 200 Each 8 fluticasone (FLONASE) 50 mcg/actuation nasal spray Use 2 Sprays in each nostril once daily. Rinse mouth after use. 1 Each 0 aspirin, enteric coated (ECOTRIN LOW STRENGTH) 81 mg EC tablet Take 1 tablet by mouth once daily. 90 tablet 3 citalopram (CELEXA) 20 mg tablet Take 20 mg by mouth once daily. no115/iron/folic acid ( 19 ORAL) Take 1 tablet by mouth once daily. albuterol HFA (PROVENTIL HFA, VENTOLIN HFA) 90 mcg/actuation inhaler Inhale 2 Puffs as instructed every 4 hours as needed for wheezing/shortness of breath. 8 g 0 No current facility-administered medications for this visit. ALLERGIES: Cephalexin PERSONAL HISTORY: Social History Tobacco Use Smoking status: Never Smokeless tobacco: Never Vaping Use Vaping status: Former Substance Use Topics Alcohol use: Not Currently Drug use: Never FAMILY HISTORY: FAMILY HISTORY Problem Relation Age of Onset No Known Problems Sister No Known Problems Brother Diabetes Maternal Grandfather REVIEW OF SYMPTOMS: negative except as noted above PHYSICAL EXAMINATION: VITALS: Last menstrual period 06/10/2024. GENERAL: The patient is well nourished, well hydrated in no acute distress. , The patient is oriented to time, place, and person. NECK: full range of motion Abd: gravid, non tender IMPRESSION: 24yo with h/o CS, Type 2 Dm, Obesity- scheduled for CS PLAN: Repeat cs at 38 weeks Pt has been counseled on risks/benefits and alternatives of surgery including but not limited to anesthesia, bleeding, infection, injury to pelvic structures including bowel, bladder, ureters and vessels. Pt wishes to proceed with surgery at this time. Risk of hemorrhage reviewed Pre and post op instructions reviewed I have reviewed and updated past medical and surgical history, medications and allergies Mayra Vincent MD Normal [facility] ROUTINE, GROUP B ST REPTOCOCCUS BY PCRon 02-19-2025 ROUTINE, GROUP B STREPTOCOCCUS BY PCR Not detected Normal [facility] 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: Performed By: #### [email or web address] #### [facility] CLIA [id number] [address] [place] [address] TYPE + SCREEN PRENATALon ABO A Normal [facility] 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: Order Comment: Specimen Type: BLOOD SPEC IMEN Ordering Facility: [facility] Address: [address] [place] [address] Performed By: #### T SPN #### [facility] CLIA [id number] [address] [place] [address] [place] Rh Nom (Bld) Negative Normal [facility] 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: Order Comment: Specimen Type: BLOOD SPEC IMEN Ordering Facility: [facility] Address: [address] [place] [address] Performed By: #### T SPN #### [facility] CLIA [id number] [address] [place] [address] [place] TYPE AND SCREEN EXPIRATION 02/14/2025 23:59 Normal [facility] 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: Order Comment: Specimen Type: BLOOD SPEC IMEN Ordering Facility: [facility] Address: [address] [place] [address] Performed By: #### T SPN #### [facility] CLIA [id number] [address] [place] [address] [place] CNPNon 02-10-2025 [facility] Telephone (ENDOAL) VAL RUIZ ([id number]) 2000 F Date Time Provider Department 02/10/25 LALITO ROCHA During your visit today, we recorded the following information about you: Lalito Rocha, 02/10/2025 8:23 AM Signed Reviewed BG data- responded as follows: Good morning- I reviewed your BG data- I would recommend that you adjust insulin as follows: increase NPH to 32 units at bedtime continue Humalog 5-10-10 units prior to meals respectively, + 8 units of Humalog with higher carb meals. Will review again next week- thanks! KB Allergies As of Date: 02/10/2025 Noted Allergy Reaction CEPHALEXIN 05/01/2022 2 - Rash Date Reviewed: 01/28/2025 Reviewed by: Yamila Azar MA - Fully Assessed Reason for Visit: Blood Sugar Reading [1269] Order(s):insulin NPH (HUMULIN N NPH INSULIN KWIKPEN) 100 unit/mL (3 mL) injection pen32 units at bedtimeDisp: 5 eachRfl: 11 Prescriptions as of 02/10/2025 - insulin NPH (HUMULIN N NPH INSULIN KWIKPEN) 100 unit/mL (3 mL) injection pen 32 units at bedtime - metoclopramide HCl (REGLAN) 5 mg tablet Take 1 tablet by mouth four times a day as needed (headache, nausea). - insulin lispro (HUMALOG KWIKPEN) 100 unit/mL 5-10-10 units prior to meals + scale upto 55 units/day . - diphenhydrAMINE (UNISOM SLEEPMINIS) 25 mg capsule Take 1 capsule by mouth at bedtime as needed. - ferrous sulfate 325 mg (65 mg iron) tablet Take 1 tablet by mouth every other day. - famotidine (PEPCID) 20 mg tablet Take 1 tablet by mouth two times a day. - Insulin Montgomery, Disposable, (PEN NEEDLE) 32 gauge x 5/32 Use to inject insulin up to 4 times per day. - Blood-Glucose Meter Use as directed to check glucose levels up to seven times daily. - blood sugar diagnostic test strip Use as directed to check glucose levels up to seven times daily. - Lancets Use as directed to check glucose levels up to seven times daily. - alcohol swabs (ALCOHOL PREP PADS) Use as directed to check glucose levels up to seven times daily. - fluticasone (FLONASE) 50 mcg/actuation nasal spray Use 2 Sprays in each nostril once daily. Rinse mouth after use. - aspirin, enteric coated (ECOTRIN LOW STRENGTH) 81 mg EC tablet Take 1 tablet by mouth once daily. - citalopram (CELEXA) 20 mg tablet Take 20 mg by mouth once daily. - no115/iron/folic acid ( 19 ORAL) Take 1 tablet by mouth once daily. - albuterol HFA (PROVENTIL HFA, VENTOLIN HFA) 90 mcg/actuation inhaler Inhale 2 Puffs as instructed every 4 hours as needed for wheezing/shortness of breath. Problem List As Of Date 02/10/2025 Noted Resolved Depression, major, recurrent, moderate (HCC) [F*07/11/2024 Generalized anxiety disorder [F41.1] 07/11/2024 Bipolar 1 disorder, mixed (HCC) [F31.60] 08/03/2024 Asthma [J45.909] Obesity during [O99.210] 08/03/2024 History of delivery [Z98.891] 08/03/2024 Anxiety [F41.9] 08/03/2024 History of gestational diabetes mellitus (GDM) *08/03/2024 11/06/2024 Elevated hemoglobin A1c [R73.09] 09/15/2024 11/06/2024 Anemia complicating , second trimester*09/15/2024 Elevated glucose tolerance test [R73.09] 09/18/2024 Pre-existing diabetes mellitus in in *09/18/2024 Maternal iron deficiency anemia complicating pr*12/30/2024 Prescriptions ordered this encounter Disp Refills Start End HUMULIN N NPH U-100 INSULIN KWIKPEN * 5 ea* 11 02/10/2025 Class: Med Update Si units at bedtime Medications Discontinued During This Encounter Prescriptions - insulin NPH (HUMULIN N NPH INSULIN KWIKPEN) 100 unit/mL (3 mL) injection pen (Discontinued) 28 units at bedtime Encounter Status:Closed by LALITO ROCHA on 02/10/25 Normal [facility] Examination level ultrasound on 02-08-2025 [facility] Radiology Study observation (narrative) [facility] CBC panel Auto (Bld)on 02-04 Erythrocyte distribution width (RBC) [Ratio] 20.6 % High 11.5 - 15.0 % [facility] Hematocrit (Bld) [Volume fraction] 30.1 % Low 36.0 - 46.0 % [facility] Hemoglobin (Bld) [Mass/Vol] 9.5 g/dL Low 11.5 - 15.5 g/dL [facility] Interpretation and review of laboratory results Abnormal [facility] MCH (RBC) [Entitic mass] 29.9 pg 26.0 - 34.0 pg [facility] MCHC (RBC) [Mass/Vol] 31.6 g/dL 30.5 - 36.0 g/dL [facility] MCV (RBC) [Entitic vol] 94.7 fL 80.0 - 100.0 fL [facility] Nucleated RBC (Bld) [#/Vol] NINF [facility] Platelet mean volume (Bld) [Entitic vol] 10.5 fL 9.0 - 12.7 fL [facility] Platelets (Bld) [#/Vol] 222 10*3/uL [facility] RBC (Bld) [#/Vol] 3.18 10*6/uL Low 3.90 - 5.20 m/uL [facility] WBC (Bld) [#/Vol] 4.96 10*3/uL [facility] Erythrocyte distribution width (RBC) [Ratio] 20.6 % High 11.5-15.0 [facility] 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: Order Comment: Specimen Type: BLOOD SPEC IMEN Ordering Facility: [facility] Address: [address] [place], [place] [id number] Performed By: #### M AT21 #### [facility] CLIA [id number] [address] [place] [address] Hematocrit (Bld) [Volume fraction] 30.1 % Low 36.0-46.0 [facility] 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: Order Comment: Specimen Type: BLOOD SPEC IMEN Ordering Facility: [facility] Address: [address] [place] [address] Performed By: #### M AT21 #### [facility] CLIA [id number] [address] [place] [address] Hemoglobin (Bld) [Mass/Vol] 9.5 g/dL Low 11.5-15.5 [facility] 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: Order Comment: Specimen Type: BLOOD SPEC IMEN Ordering Facility: [facility] Address: [address] [place] [address] Performed By: #### M AT21 #### [facility] CLIA [id number] [address] [place] [address] MCH (RBC) [Entitic mass] 29.9 pg Normal 26.0-34.0 [facility] 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: Order Comment: Specimen Type: BLOOD SPEC IMEN Ordering Facility: [facility] Address: [address] [place] [address] Performed By: #### M AT21 #### [facility] CLIA [id number] [address] [place] [address] MCHC (RBC) [Mass/Vol] 31.6 g/dL Normal 30.5-36.0 [facility] 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: Order Comment: Specimen Type: BLOOD SPEC IMEN Ordering Facility: [facility] Address: [address] [place] [address] Performed By: #### M AT21 #### [facility] CLIA [id number] [address] [place] [address] MCV (RBC) [Entitic vol] 94.7 fL Normal 80.0-100.0 [facility] 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: Order Comment: Specimen Type: BLOOD SPEC IMEN Ordering Facility: [facility] Address: [address] [place] [address] Performed By: #### M AT21 #### [facility] CLIA [id number] [address] [place] [address] Nucleated RBC (Bld) [#/Vol] 10*3/uL Normal <0.01 [facility] 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: Order Comment: Specimen Type: BLOOD SPEC IMEN Ordering Facility: [facility] Address: [address] [place] [address] Performed By: #### M AT21 #### [facility] CLIA [id number] [address] [place] [address] Platelet mean volume (Bld) [Entitic vol] 10.5 fL Normal 9.0-12.7 [facility] 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: Order Comment: Specimen Type: BLOOD SPEC IMEN Ordering Facility: [facility] Address: [address] [place] [place] [id number] Performed By: #### M AT21 #### [facility] CLIA [id number] [address] [place] [address] Platelets (Bld) [#/Vol] 222 10*3/uL Normal 150-400 [facility] 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: Order Comment: Specimen Type: BLOOD SPEC IMEN Ordering Facility: [facility] Address: [address] [place] [address] Performed By: #### M AT21 #### [facility] CLIA [id number] [address] [place] [address] RBC (Bld) [#/Vol] 3.18 10*6/uL Low 3.90-5.20 [facility] 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: Order Comment: Specimen Type: BLOOD SPEC IMEN Ordering Facility: [facility] Address: [address] [place] [place] [id number] Performed By: #### M AT21 #### [facility] CLIA [id number] [address] [place] [address] WBC (Bld) [#/Vol] 4.96 10*3/uL Normal 3.70-11.00 [facility] 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: Order Comment: Specimen Type: BLOOD SPEC IMEN Ordering Facility: [facility] Address: [address] [place] [address] Performed By: #### M AT21 #### [facility] CLIA [id number] [address] [place] [address] Comprehensive metabolic 2000 panelOrdered By: Kaila Menjivar on 02-04-2025 Albumin [Mass/Vol] 3 g/dL Low 3.9 - 4.9 g/dL [facility] ALP [Catalytic activity/Vol] 128 U/L High 34 - 123 U/L [facility] ALT [Catalytic activity/Vol] 8 U/L 7 - 38 U/L [facility] Anion gap [Moles/Vol] 11 mmol/L 8 - 15 mmol/L [facility] AST [Catalytic activity/Vol] 11 U/L Low 13 - 35 U/L [facility] Bilirubin [Mass/Vol] 0.2 mg/dL 0.2 - 1.3 mg/dL [facility] Calcium [Mass/Vol] 8.6 mg/dL 8.5 - 10.2 mg/dL [facility] Chloride [Moles/Vol] 104 mmol/L 98 - 107 mmol/L [facility] CO2 [Moles/Vol] 19 mmol/L Low 22 - 30 mmol/L [facility] Creatinine [Mass/Vol] 0.47 mg/dL Low 0.58 - 0.96 mg/dL [facility] GFR/1.73 sq M.predicted among non-blacks MDRD (S/P/Bld) [Vol rate/Area] 136 mL/min/{1.73_m2} - PINF [facility] 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: Estimated Glomerular Filtration Rate (eG FR) is calculated using the 2020 CKD-EPI creatinine equation. This equation utilizes serum creatinine, sex, and age as parameters. The creatinine assay has traceable calibration to isotope dilution-mass spectrometry. Refer to KDIGO guidelines for clinical interpretation. In patients with unstable renal function, e.g. those with acute kidney injury, the eGFR may not accurately reflect actual GFR. Glucose [Mass/Vol] 133 mg/dL High 74 - 99 mg/dL [facility] 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: The [place] [employer] Association (ADA) provides guidance for cutoff values for fasting glucose and random glucose. The ADA defines fasting as no caloric intake for at least 8 hours. Fasting plasma glucose results between 100 to 125 mg/dL indicate increased risk for diabetes (prediabetes). Fasting plasma glucose results greater than or equal to 126 mg/dL meet the criteria for diagnosis of diabetes. In the absence of unequivocal hyperglycemia, results should be confirmed by repeat testing. In a patient with classic symptoms of hyperglycemia or hyperglycemic crisis, random plasma glucose results greater than or equal to 200 mg/dL meet the criteria for diagnosis of diabetes. Reference: Standards of Medical Care in Diabetes 2016, [place] [employer]. Diabetes Care. 2016.39(Suppl 1). Interpretation and review of laboratory results Abnormal [facility] Potassium [Moles/Vol] 3.9 mmol/L 3.7 - 5.1 mmol/L [facility] Protein [Mass/Vol] 6.5 g/dL 6.3 - 8.0 g/dL [facility] Sodium [Moles/Vol] 134 mmol/L Low 136 - 144 mmol/L [facility] Urea nitrogen [Mass/Vol] 5 mg/dL Low 7 - 21 mg/dL [facility] Comprehensive metabolic 2000 panelon 02-04-2025 Albumin [Mass/Vol] 3.0 g/dL Low 3.9-4.9 [facility] 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: Order Comment: Specimen Type: BLOOD SPEC IMEN Ordering Facility: [facility] Address: [address] [place] [address] Performed By: #### M AT21 #### [facility] CLIA [id number] [address] [place] [address] ALP [Catalytic activity/Vol] 128 U/L High 34-123 [facility] 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: Order Comment: Specimen Type: BLOOD SPEC IMEN Ordering Facility: [facility] Address: [address] [place] [address] Performed By: #### M AT21 #### [facility] CLIA [id number] [address] [place] [address] ALT [Catalytic activity/Vol] 8 U/L Normal 7-38 [facility] 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: Order Comment: Specimen Type: BLOOD SPEC IMEN Ordering Facility: [facility] Address: [address] [place] [address] Performed By: #### M AT21 #### [facility] CLIA [id number] [address] [place] [address] Anion gap [Moles/Vol] 11 mmol/L Normal 8-15 [facility] 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: Order Comment: Specimen Type: BLOOD SPEC IMEN Ordering Facility: [facility] Address: [address] [place] [address] Performed By: #### M AT21 #### [facility] CLIA [id number] [address] [place] [address] AST [Catalytic activity/Vol] 11 U/L Low 13-35 [facility] 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: Order Comment: Specimen Type: BLOOD SPEC IMEN Ordering Facility: [facility] Address: [address] [place] [address] Performed By: #### M AT21 #### [facility] CLIA [id number] [address] [place] [address] Bilirubin [Mass/Vol] 0.2 mg/dL Normal 0.2-1.3 [facility] 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: Order Comment: Specimen Type: BLOOD SPEC IMEN Ordering Facility: [facility] Address: [address] [place] [address] Performed By: #### M AT21 #### [facility] CLIA [id number] [address] [place] [address] Calcium [Mass/Vol] 8.6 mg/dL Normal 8.5-10.2 [facility] 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: Order Comment: Specimen Type: BLOOD SPEC IMEN Ordering Facility: [facility] Address: [address] [place] [address] Performed By: #### M AT21 #### [facility] CLIA [id number] [address] [place] [address] Chloride [Moles/Vol] 104 mmol/L Normal 98-107 [facility] 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: Order Comment: Specimen Type: BLOOD SPEC IMEN Ordering Facility: [facility] Address: [address] [place] [address] Performed By: #### M AT21 #### [facility] CLIA [id number] [address] [place] [address] CO2 [Moles/Vol] 19 mmol/L Low 22-30 [facility] 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: Order Comment: Specimen Type: BLOOD SPEC IMEN Ordering Facility: [facility] Address: [address] [place], [place] [id number] Performed By: #### M AT21 #### [facility] CLIA [id number] [address] [place] [address] Creatinine [Mass/Vol] 0.47 mg/dL Low 0.58-0.96 [facility] 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: Order Comment: Specimen Type: BLOOD SPEC IMEN Ordering Facility: [facility] Address: [address] [place] [address] Performed By: #### M AT21 #### [facility] CLIA [id number] [address] [place] [address] Creatinine and Glomerular filtration rate.predicted panel (S/P/Bld) 136 mL/min/1.73m??? Normal >=60 [facility] 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: Order Comment: Specimen Type: BLOOD SPEC IMEN Ordering Facility: [facility] Address: [address] [place] [address] Result Comment: Janet mated Glomerular Filtration Rate (eGFR) is calculated using the 2020 CKD-EPI creatinine equation. This equation utilizes serum creatinine, sex, and age as parameters. The creatinine assay has traceable calibration to isotope dilution-mass spectrometry. Refer to KDIGO guidelines for clinical interpretation. In patients with unstable renal function, e.g. those with acute kidney injury, the eGFR may not accurately reflect actual GFR. Performed By: #### M AT21 #### [facility] CLIA [id number] [address] [place] [address] Glucose [Mass/Vol] 133 mg/dL High 74-99 [facility] 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: Order Comment: Specimen Type: BLOOD SPEC IMEN Ordering Facility: [facility] Address: [address] [place] [address] Result Comment: The [place] Diabetes Association (ADA) provides guidance for cutoff values for fasting glucose and random glucose. The ADA defines fasting as no caloric intake for at least 8 hours. Fasting plasma glucose results between 100 to 125 mg/dL indicate increased risk for diabetes (prediabetes). Fasting plasma glucose results greater than or equal to 126 mg/dL meet the criteria for diagnosis of diabetes. In the absence of unequivocal hyperglycemia, results should be confirmed by repeat testing. In a patient with classic symptoms of hyperglycemia or hyperglycemic crisis, random plasma glucose results greater than or equal to 200 mg/dL meet the criteria for diagnosis of diabetes. Reference: Standards of Medical Care in Diabetes 2016, [place] Diabetes Association. Diabetes Care. 2016.39(Suppl 1). Performed By: #### M AT21 #### [facility] CLIA [id number] [address] [place] [address] Potassium [Moles/Vol] 3.9 mmol/L Normal 3.7-5.1 [facility] 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: Order Comment: Specimen Type: BLOOD SPEC IMEN Ordering Facility: [facility] Address: [address] [place] [address] Performed By: #### M AT21 #### [facility] CLIA [id number] [address] [place] [address] Protein [Mass/Vol] 6.5 g/dL Normal 6.3-8.0 [facility] 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: Order Comment: Specimen Type: BLOOD SPEC IMEN Ordering Facility: [facility] Address: [address] [place] [address] Performed By: #### M AT21 #### [facility] CLIA [id number] [address] [place] [address] Sodium [Moles/Vol] 134 mmol/L Low 136-144 [facility] 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: Order Comment: Specimen Type: BLOOD SPEC IMEN Ordering Facility: [facility] Address: [address] [place] [address] Performed By: #### M AT21 #### [facility] CLIA [id number] [address] [place] [address] Urea nitrogen [Mass/Vol] 5 mg/dL Low 7-21 [facility] 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: Order Comment: Specimen Type: BLOOD SPEC IMEN Ordering Facility: [facility] Address: [address] [place] [address] Performed By: #### M AT21 #### [facility] CLIA [id number] [address] [place] [address] No Panel Informationon 02-04 [facility] Prot/Creat Uron 02-04-2025 Protein/Creatini ne (U) [Mass ratio] 0.21 mg/mg High <0.15 [facility] 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: Order Comment: Specimen Type: BLOOD SPEC IMEN Ordering Facility: [facility] Address: [address] [place] [address] Result Comment: Adul t Proteinuria Categories: <0.15 mg/mg is considered normal to mildly increased 0.15 - 0.50 mg/mg is considered moderately increased >0.50 mg/mg is considered severely increased KDIGO. (2013). KDIGO 2012 Clinical Practice Guideline for the Evaluation and Management of Chronic Kidney Disease. Official Journal of the International Society of Nephrology, 3(1), 1-150. Performed By: #### 5 7021-8 #### [id number] [address] [place] [address] [place] Protein/Creatinine (U) [Mass ratio]on 02-04-2025 Creatinine (U) [Mass/Vol] 43.4 mg/dL Normal 20.0-300.0 [facility] 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: Order Comment: Specimen Type: BLOOD SPEC IMEN Ordering Facility: [facility] Address: [address] [place] [address] Performed By: #### 5 7021-8 #### [facility] [id number] [address] [place] [address] [place] Protein (U) [Mass/Vol] 9 mg/dL Normal 0-20 [facility] 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: Order Comment: Specimen Type: BLOOD SPEC IMEN Ordering Facility: [facility] Address: [address] [place] [address] Performed By: #### 5 7021-8 #### [facility] [id number] [address] [place] [address] [place] URINE OB DIP B/OOrdered By: Yamila Azar on 02-04-2025 Glucose Ql (U) Negative Neg mg/dL [facility] Interpretation and review of laboratory results Normal [facility] Protein.monoclon al (U) [Mass/Vol] Negative Neg mg/dL [facility] CNPSirena 02-02-2025 CNPN Telephone (ENDOAL) VAL RUIZ ([id number]) 2000 F Date Time Provider Department 02/02/25 LALITO ROCHA ENDOAL During your visit today, we recorded the following information about you: Lalito Rocha, 02/02/2025 4:20 PM Signed Reviewed BG data- responded as follows: Good afternoon- I reviewed your BG data- these numbers remain at goal for - continue your current regimen: NPH 28 units at bedtime Humalog 5-10-10 units prior to meals respectively, + 8 units of Humalog with higher carb meals. Will review again next week- thanks! KB Allergies As of Date: 02/02/2025 Noted Allergy Reaction CEPHALEXIN 05/01/2022 2 - Rash Date Reviewed: 01/28/2025 Reviewed by: Yamila Azar MA - Fully Assessed Reason for Visit: Blood Sugar Reading [1269] Prescriptions as of 02/02/2025 - insulin lispro (HUMALOG KWIKPEN) 100 unit/mL 5-10-10 units prior to meals + scale upto 55 units/day . - insulin NPH (HUMULIN N NPH INSULIN KWIKPEN) 100 unit/mL (3 mL) injection pen 28 units at bedtime - diphenhydrAMINE (UNISOM SLEEPMINIS) 25 mg capsule Take 1 capsule by mouth at bedtime as needed. - ferrous sulfate 325 mg (65 mg iron) tablet Take 1 tablet by mouth every other day. - famotidine (PEPCID) 20 mg tablet Take 1 tablet by mouth two times a day. - Insulin Montgomery, Disposable, (PEN NEEDLE) 32 gauge x 5/32 Use to inject insulin up to 4 times per day. - Blood-Glucose Meter Use as directed to check glucose levels up to seven times daily. - blood sugar diagnostic test strip Use as directed to check glucose levels up to seven times daily. - Lancets Use as directed to check glucose levels up to seven times daily. - alcohol swabs (ALCOHOL PREP PADS) Use as directed to check glucose levels up to seven times daily. - fluticasone (FLONASE) 50 mcg/actuation nasal spray Use 2 Sprays in each nostril once daily. Rinse mouth after use. - aspirin, enteric coated (ECOTRIN LOW STRENGTH) 81 mg EC tablet Take 1 tablet by mouth once daily. - citalopram (CELEXA) 20 mg tablet Take 20 mg by mouth once daily. - no115/iron/folic acid ( 19 ORAL) Take 1 tablet by mouth once daily. - albuterol HFA (PROVENTIL HFA, VENTOLIN HFA) 90 mcg/actuation inhaler Inhale 2 Puffs as instructed every 4 hours as needed for wheezing/shortness of breath. Problem List As Of Date 02/02/2025 Noted Resolved Depression, major, recurrent, moderate (HCC) [F*07/11/2024 Generalized anxiety disorder [F41.1] 07/11/2024 Bipolar 1 disorder, mixed (HCC) [F31.60] 08/03/2024 Asthma [J45.909] Obesity during [O99.210] 08/03/2024 History of delivery [Z98.891] 08/03/2024 Anxiety [F41.9] 08/03/2024 History of gestational diabetes mellitus (GDM) *08/03/2024 11/06/2024 Elevated hemoglobin A1c [R73.09] 09/15/2024 11/06/2024 Anemia complicating , second trimester*09/15/2024 Elevated glucose tolerance test [R73.09] 09/18/2024 Pre-existing diabetes mellitus in in *09/18/2024 Maternal iron deficiency anemia complicating pr*12/30/2024 Encounter Status:Closed by LALITO ROCHA on 02/02/25 Normal [facility] Examination level ultrasound on 02-01-2025 [facility] Radiology Study observation (narrative) [facility] Yoly 01-27-2025 JASEN Telephone (ENDOAL) VAL RUIZ ([id number]) 2000 F Date Time Provider Department 01/27/25 LALITO ROCHA ENDOAL During your visit today, we recorded the following information about you: Lalito Rocha, 01/27/2025 8:06 PM Signed Reviewed BG data- responded as follows: Good afternoon- I reviewed your BG data- the majority of these values remain at goal for - continue your current regimen as you are doing: NPH 28 units at bedtime Humalog 5-10-10 units prior to meals respectively, + 8 units of Humalog with higher carb meals. Will review again next week- thanks! KB Allergies As of Date: 01/27/2025 Noted Allergy Reaction CEPHALEXIN 05/01/2022 2 - Rash Date Reviewed: 01/25/2025 Reviewed by: Yolette Triplett, RN - Fully Assessed Reason for Visit: Blood Sugar Reading [1269] Prescriptions as of 01/27/2025 - insulin lispro (HUMALOG KWIKPEN) 100 unit/mL 5-10-10 units prior to meals + scale upto 55 units/day . - insulin NPH (HUMULIN N NPH INSULIN KWIKPEN) 100 unit/mL (3 mL) injection pen 28 units at bedtime - diphenhydrAMINE (UNISOM SLEEPMINIS) 25 mg capsule Take 1 capsule by mouth at bedtime as needed. - ferrous sulfate 325 mg (65 mg iron) tablet Take 1 tablet by mouth every other day. - famotidine (PEPCID) 20 mg tablet Take 1 tablet by mouth two times a day. - Insulin Montgomery, Disposable, (PEN NEEDLE) 32 gauge x 5/32 Use to inject insulin up to 4 times per day. - Blood-Glucose Meter Use as directed to check glucose levels up to seven times daily. - blood sugar diagnostic test strip Use as directed to check glucose levels up to seven times daily. - Lancets Use as directed to check glucose levels up to seven times daily. - alcohol swabs (ALCOHOL PREP PADS) Use as directed to check glucose levels up to seven times daily. - fluticasone (FLONASE) 50 mcg/actuation nasal spray Use 2 Sprays in each nostril once daily. Rinse mouth after use. - aspirin, enteric coated (ECOTRIN LOW STRENGTH) 81 mg EC tablet Take 1 tablet by mouth once daily. - citalopram (CELEXA) 20 mg tablet Take 20 mg by mouth once daily. - no115/iron/folic acid ( 19 ORAL) Take 1 tablet by mouth once daily. - albuterol HFA (PROVENTIL HFA, VENTOLIN HFA) 90 mcg/actuation inhaler Inhale 2 Puffs as instructed every 4 hours as needed for wheezing/shortness of breath. Problem List As Of Date 01/27/2025 Noted Resolved Depression, major, recurrent, moderate (HCC) [F*07/11/2024 Generalized anxiety disorder [F41.1] 07/11/2024 Bipolar 1 disorder, mixed (HCC) [F31.60] 08/03/2024 Asthma [J45.909] Obesity during [O99.210] 08/03/2024 History of delivery [Z98.891] 08/03/2024 Anxiety [F41.9] 08/03/2024 History of gestational diabetes mellitus (GDM) *08/03/2024 11/06/2024 Elevated hemoglobin A1c [R73.09] 09/15/2024 11/06/2024 Anemia complicating , second trimester*09/15/2024 Elevated glucose tolerance test [R73.09] 09/18/2024 Pre-existing diabetes mellitus in in *09/18/2024 Maternal iron deficiency anemia complicating pr*12/30/2024 Encounter Status:Closed by LALITO ROCHA on 01/27/25 Normal [facility] Examination level ultrasound on 01-26-2025 [facility] Radiology Study observation (narrative) [facility] Examination level ultrasound on 01-25-2025 [facility] Examination level ultrasound on 01-22-2025 Radiology Study observation (narrative) [facility] Yoly 01-19-2025 CNPN Telephone (ENDOAL) VAL RUIZ ([id number]) 2000 F Date Time Provider Department 01/19/25 LALITO ROCHA ENDOAL During your visit today, we recorded the following information about you: Lalito Rocha, 01/19/2025 7:24 AM Signed Reviewed BG data- responded as follows: Good morning- I reviewed your BG data- these numbers remain at goal and look good overall. Continue your current regimen: NPH 28 units at bedtime, Humalog 5 units with breakfast, 10 units with lunch and 10 units with dinner (+ 8 units with higher carb meals)- arleth with * as you are doing if/when you take the extra insulin. Will review again next week- thanks! KB Allergies As of Date: 01/19/2025 Noted Allergy Reaction CEPHALEXIN 05/01/2022 2 - Rash Date Reviewed: 01/18/2025 Reviewed by: Gloria Unger, RN - Fully Assessed Reason for Visit: Blood Sugar Reading [1269] Prescriptions as of 01/19/2025 - insulin NPH (HUMULIN N NPH INSULIN KWIKPEN) 100 unit/mL (3 mL) injection pen 28 units at bedtime - diphenhydrAMINE (UNISOM SLEEPMINIS) 25 mg capsule Take 1 capsule by mouth at bedtime as needed. - insulin lispro (HUMALOG KWIKPEN) 100 unit/mL 5-10-10 units prior to meals + scale upto 55 units/day . - ferrous sulfate 325 mg (65 mg iron) tablet Take 1 tablet by mouth every other day. - famotidine (PEPCID) 20 mg tablet Take 1 tablet by mouth two times a day. - Insulin Montgomery, Disposable, (PEN NEEDLE) 32 gauge x 5/32 Use to inject insulin up to 4 times per day. - Blood-Glucose Meter Use as directed to check glucose levels up to seven times daily. - blood sugar diagnostic test strip Use as directed to check glucose levels up to seven times daily. - Lancets Use as directed to check glucose levels up to seven times daily. - alcohol swabs (ALCOHOL PREP PADS) Use as directed to check glucose levels up to seven times daily. - fluticasone (FLONASE) 50 mcg/actuation nasal spray Use 2 Sprays in each nostril once daily. Rinse mouth after use. - aspirin, enteric coated (ECOTRIN LOW STRENGTH) 81 mg EC tablet Take 1 tablet by mouth once daily. - citalopram (CELEXA) 20 mg tablet Take 20 mg by mouth once daily. - no115/iron/folic acid ( 19 ORAL) Take 1 tablet by mouth once daily. - albuterol HFA (PROVENTIL HFA, VENTOLIN HFA) 90 mcg/actuation inhaler Inhale 2 Puffs as instructed every 4 hours as needed for wheezing/shortness of breath. Problem List As Of Date 01/19/2025 Noted Resolved Depression, major, recurrent, moderate (HCC) [F*07/11/2024 Generalized anxiety disorder [F41.1] 07/11/2024 Bipolar 1 disorder, mixed (HCC) [F31.60] 08/03/2024 Asthma [J45.909] Obesity during [O99.210] 08/03/2024 History of delivery [Z98.891] 08/03/2024 Anxiety [F41.9] 08/03/2024 History of gestational diabetes mellitus (GDM) *08/03/2024 11/06/2024 Elevated hemoglobin A1c [R73.09] 09/15/2024 11/06/2024 Anemia complicating , second trimester*09/15/2024 Elevated glucose tolerance test [R73.09] 09/18/2024 Pre-existing diabetes mellitus in in *09/18/2024 Maternal iron deficiency anemia complicating pr*12/30/2024 Encounter Status:Closed by LALITO ROCHA on 01/19/25 [facility] Yoly 01-12-2025 ROSA Telephone (ENDOAL) VAL RUIZ Carlos ([id number]) 2000 F Date Time Provider Department 01/12/25 LALITO ROCHA During your visit today, we recorded the following information about you: Lalito Rocha, DO 01/12/2025 7:35 AM Signed Reviewed BG data- responded as follows; Good morning- I reviewed your BG data- these numbers remain at goal for - continue your current regimen: NPH 28 units at bedtime, Humalog 5 units with breakfast, 10 units with lunch and 10 units with dinner (+ 8 units with higher carb meals)- arleth with * as you are doing if/when you take the extra insulin. Will review again next week- thanks! Dr Rocha Allergies As of Date: 01/12/2025 Noted Allergy Reaction CEPHALEXIN 05/01/2022 2 - Rash Date Reviewed: 01/12/2025 Reviewed by: Yolette Triplett, RN - Fully Assessed Reason for Visit: Blood Sugar Reading [1269] Prescriptions as of 01/12/2025 - insulin NPH (HUMULIN N NPH INSULIN KWIKPEN) 100 unit/mL (3 mL) injection pen 28 units at bedtime - diphenhydrAMINE (UNISOM SLEEPMINIS) 25 mg capsule Take 1 capsule by mouth at bedtime as needed. - insulin lispro (HUMALOG KWIKPEN) 100 unit/mL 5-10-10 units prior to meals + scale upto 55 units/day . - ferrous sulfate 325 mg (65 mg iron) tablet Take 1 tablet by mouth every other day. - famotidine (PEPCID) 20 mg tablet Take 1 tablet by mouth two times a day. - Insulin Montgomery, Disposable, (PEN NEEDLE) 32 gauge x 5/32 Use to inject insulin up to 4 times per day. - Blood-Glucose Meter Use as directed to check glucose levels up to seven times daily. - blood sugar diagnostic test strip Use as directed to check glucose levels up to seven times daily. - Lancets Use as directed to check glucose levels up to seven times daily. - alcohol swabs (ALCOHOL PREP PADS) Use as directed to check glucose levels up to seven times daily. - fluticasone (FLONASE) 50 mcg/actuation nasal spray Use 2 Sprays in each nostril once daily. Rinse mouth after use. - aspirin, enteric coated (ECOTRIN LOW STRENGTH) 81 mg EC tablet Take 1 tablet by mouth once daily. - citalopram (CELEXA) 20 mg tablet Take 20 mg by mouth once daily. - no115/iron/folic acid ( 19 ORAL) Take 1 tablet by mouth once daily. - albuterol HFA (PROVENTIL HFA, VENTOLIN HFA) 90 mcg/actuation inhaler Inhale 2 Puffs as instructed every 4 hours as needed for wheezing/shortness of breath. Problem List As Of Date 01/12/2025 Noted Resolved Depression, major, recurrent, moderate (HCC) [F*07/11/2024 Generalized anxiety disorder [F41.1] 07/11/2024 Bipolar 1 disorder, mixed (HCC) [F31.60] 08/03/2024 Asthma [J45.909] Obesity during [O99.210] 08/03/2024 History of delivery [Z98.891] 08/03/2024 Anxiety [F41.9] 08/03/2024 History of gestational diabetes mellitus (GDM) *08/03/2024 11/06/2024 Elevated hemoglobin A1c [R73.09] 09/15/2024 11/06/2024 Anemia complicating , second trimester*09/15/2024 Elevated glucose tolerance test [R73.09] 09/18/2024 Pre-existing diabetes mellitus in in *09/18/2024 Maternal iron deficiency anemia complicating pr*12/30/2024 Encounter Status:Closed by LALITO ROCHA on 01/12/25 [facility] Yoly 01-08-2025 [facility] Telephone ([id number]) VAL RUIZ ([id number]) 2000 F Date Time Provider Department 01/08/25 MELISSA CHAVEZ [id number] During your visit today, we recorded the following information about you: Melissa Chavez RN 01/08/2025 10:47 AM Signed 3rd risk assessment form submitted 01/08/2025. Melissa Chavez RN Allergies As of Date: 01/08/2025 Noted Allergy Reaction CEPHALEXIN 05/01/2022 2 - Rash Date Reviewed: 01/07/2025 Reviewed by: Alfred Arcos MD - Fully Assessed Reason for Visit: Para Operator - Other [3602] Cmt: PRAF Prescriptions as of 01/08/2025 - insulin NPH (HUMULIN N NPH INSULIN KWIKPEN) 100 unit/mL (3 mL) injection pen 28 units at bedtime - diphenhydrAMINE (UNISOM SLEEPMINIS) 25 mg capsule Take 1 capsule by mouth at bedtime as needed. - insulin lispro (HUMALOG KWIKPEN) 100 unit/mL 5-10-10 units prior to meals + scale upto 55 units/day . - ferrous sulfate 325 mg (65 mg iron) tablet Take 1 tablet by mouth every other day. - famotidine (PEPCID) 20 mg tablet Take 1 tablet by mouth two times a day. - Insulin Montgomery, Disposable, (PEN NEEDLE) 32 gauge x 5/32 Use to inject insulin up to 4 times per day. - Blood-Glucose Meter Use as directed to check glucose levels up to seven times daily. - blood sugar diagnostic test strip Use as directed to check glucose levels up to seven times daily. - Lancets Use as directed to check glucose levels up to seven times daily. - alcohol swabs (ALCOHOL PREP PADS) Use as directed to check glucose levels up to seven times daily. - fluticasone (FLONASE) 50 mcg/actuation nasal spray Use 2 Sprays in each nostril once daily. Rinse mouth after use. - aspirin, enteric coated (ECOTRIN LOW STRENGTH) 81 mg EC tablet Take 1 tablet by mouth once daily. - citalopram (CELEXA) 20 mg tablet Take 20 mg by mouth once daily. - no115/iron/folic acid ( 19 ORAL) Take 1 tablet by mouth once daily. - albuterol HFA (PROVENTIL HFA, VENTOLIN HFA) 90 mcg/actuation inhaler Inhale 2 Puffs as instructed every 4 hours as needed for wheezing/shortness of breath. Problem List As Of Date 01/08/2025 Noted Resolved Depression, major, recurrent, moderate (HCC) [F*07/11/2024 Generalized anxiety disorder [F41.1] 07/11/2024 Bipolar 1 disorder, mixed (HCC) [F31.60] 08/03/2024 Asthma [J45.909] Obesity during [O99.210] 08/03/2024 History of delivery [Z98.891] 08/03/2024 Anxiety [F41.9] 08/03/2024 History of gestational diabetes mellitus (GDM) *08/03/2024 11/06/2024 Elevated hemoglobin A1c [R73.09] 09/15/2024 11/06/2024 Anemia complicating , second trimester*09/15/2024 Elevated glucose tolerance test [R73.09] 09/18/2024 Pre-existing diabetes mellitus in in *09/18/2024 Maternal iron deficiency anemia complicating pr*12/30/2024 Encounter Status:[facility] VAL RUIZ ([id number]) 2000 F Date Time Provider Department 01/05/25 LALITO ROCHA ENDOAL During your visit today, we recorded the following information about you: Lalito Rocha DO 01/05/2025 2:41 PM Signed Reviewed BG data- responded as follows: Good afternoon- I reviewed your BG data- these numbers remain at goal for and look good overall- continue your current regimen: NPH 28 units at bedtime, Humalog 5 units with breakfast, 10 units with lunch and 10 units with dinner (+ 8 units with higher carb meals)- arleth with * as you are doing if/when you take the extra insulin. Will review again next week- thanks! KB Allergies As of Date: 01/05/2025 Noted Allergy Reaction CEPHALEXIN 05/01/2022 2 - Rash Date Reviewed: 12/30/2024 Reviewed by: Thom Dean, NAZ - Fully Assessed Reason for Visit: Blood Sugar Reading [1269] Prescriptions as of 01/05/2025 - insulin NPH (HUMULIN N NPH INSULIN KWIKPEN) 100 unit/mL (3 mL) injection pen 28 units at bedtime - diphenhydrAMINE (UNISOM SLEEPMINIS) 25 mg capsule Take 1 capsule by mouth at bedtime as needed. - insulin lispro (HUMALOG KWIKPEN) 100 unit/mL 5-10-10 units prior to meals + scale upto 55 units/day . - ferrous sulfate 325 mg (65 mg iron) tablet Take 1 tablet by mouth every other day. - famotidine (PEPCID) 20 mg tablet Take 1 tablet by mouth two times a day. - Insulin Montgomery, Disposable, (PEN NEEDLE) 32 gauge x 5/32 Use to inject insulin up to 4 times per day. - Blood-Glucose Meter Use as directed to check glucose levels up to seven times daily. - blood sugar diagnostic test strip Use as directed to check glucose levels up to seven times daily. - Lancets Use as directed to check glucose levels up to seven times daily. - alcohol swabs (ALCOHOL PREP PADS) Use as directed to check glucose levels up to seven times daily. - fluticasone (FLONASE) 50 mcg/actuation nasal spray Use 2 Sprays in each nostril once daily. Rinse mouth after use. - aspirin, enteric coated (ECOTRIN LOW STRENGTH) 81 mg EC tablet Take 1 tablet by mouth once daily. - citalopram (CELEXA) 20 mg tablet Take 20 mg by mouth once daily. - no115/iron/folic acid ( 19 ORAL) Take 1 tablet by mouth once daily. - albuterol HFA (PROVENTIL HFA, VENTOLIN HFA) 90 mcg/actuation inhaler Inhale 2 Puffs as instructed every 4 hours as needed for wheezing/shortness of breath. Problem List As Of Date 01/05/2025 Noted Resolved Depression, major, recurrent, moderate (HCC) [F*07/11/2024 Generalized anxiety disorder [F41.1] 07/11/2024 Bipolar 1 disorder, mixed (HCC) [F31.60] 08/03/2024 Asthma [J45.909] Obesity during [O99.210] 08/03/2024 History of delivery [Z98.891] 08/03/2024 Anxiety [F41.9] 08/03/2024 History of gestational diabetes mellitus (GDM) *08/03/2024 11/06/2024 Elevated hemoglobin A1c [R73.09] 09/15/2024 11/06/2024 Anemia complicating , second trimester*09/15/2024 Elevated glucose tolerance test [R73.09] 09/18/2024 Pre-existing diabetes mellitus in in *09/18/2024 Maternal iron deficiency anemia complicating pr*12/30/2024 Encounter Status:Closed by LALITO ROCHA on 01/05/25 [facility] 12-31-2024 CNPN Telephone (INTMMN) VAL RUIZ ([id number]) 2000 F Date Time Provider Department 12/31/24 THOM DEAN INTCarlos During your visit today, we recorded the following information about you: Thom Dean, RN 12/31/2024 11:03 AM Signed Venofer order signed and PA completed. Ready for scheduling. Shoshana Roy 12/31/2024 11:24 AM Addendum LVM for pt to call back and schedule iron sucrose 200x5 over [address] Alfred Arcos ordering Shoshana Thomason 01/07/2025 2:40 PM Signed Spoke w pt and this has been scheduled. Shoshana Roy Allergies As of Date: 12/31/2024 Noted Allergy Reaction CEPHALEXIN 05/01/2022 2 - Rash Date Reviewed: 12/30/2024 Reviewed by: Thom Dean RN - Fully Assessed Reason for Visit: Hematology [Other] Prescriptions as of 01/07/2025 - insulin NPH (HUMULIN N NPH INSULIN KWIKPEN) 100 unit/mL (3 mL) injection pen 28 units at bedtime - diphenhydrAMINE (UNISOM SLEEPMINIS) 25 mg capsule Take 1 capsule by mouth at bedtime as needed. - insulin lispro (HUMALOG KWIKPEN) 100 unit/mL 5-10-10 units prior to meals + scale upto 55 units/day . - ferrous sulfate 325 mg (65 mg iron) tablet Take 1 tablet by mouth every other day. - famotidine (PEPCID) 20 mg tablet Take 1 tablet by mouth two times a day. - Insulin Montgomery, Disposable, (PEN NEEDLE) 32 gauge x 5/32 Use to inject insulin up to 4 times per day. - Blood-Glucose Meter Use as directed to check glucose levels up to seven times daily. - blood sugar diagnostic test strip Use as directed to check glucose levels up to seven times daily. - Lancets Use as directed to check glucose levels up to seven times daily. - alcohol swabs (ALCOHOL PREP PADS) Use as directed to check glucose levels up to seven times daily. - fluticasone (FLONASE) 50 mcg/actuation nasal spray Use 2 Sprays in each nostril once daily. Rinse mouth after use. - aspirin, enteric coated (ECOTRIN LOW STRENGTH) 81 mg EC tablet Take 1 tablet by mouth once daily. - citalopram (CELEXA) 20 mg tablet Take 20 mg by mouth once daily. - no115/iron/folic acid ( 19 ORAL) Take 1 tablet by mouth once daily. - albuterol HFA (PROVENTIL HFA, VENTOLIN HFA) 90 mcg/actuation inhaler Inhale 2 Puffs as instructed every 4 hours as needed for wheezing/shortness of breath. Problem List As Of Date 12/31/2024 Noted Resolved Depression, major, recurrent, moderate (HCC) [F*07/11/2024 Generalized anxiety disorder [F41.1] 07/11/2024 Bipolar 1 disorder, mixed (HCC) [F31.60] 08/03/2024 Asthma [J45.909] Obesity during [O99.210] 08/03/2024 History of delivery [Z98.891] 08/03/2024 Anxiety [F41.9] 08/03/2024 History of gestational diabetes mellitus (GDM) *08/03/2024 11/06/2024 Elevated hemoglobin A1c [R73.09] 09/15/2024 11/06/2024 Anemia complicating , second trimester*09/15/2024 Elevated glucose tolerance test [R73.09] 09/18/2024 Pre-existing diabetes mellitus in in *09/18/2024 Maternal iron deficiency anemia complicating pr*12/30/2024 Encounter Status:Closed by THMO HANSEN on 12/31/24 [facility] 12-28-2024 CNPN Telephone (ENDOAL) VAL RUIZ ([id number]) 2000 F Date Time Provider Department 12/28/24 LALITO ROCHA ENDOIBRAHIMA During your visit today, we recorded the following information about you: Lalito Rocha DO 12/28/2024 4:02 PM Signed Reviewed BG data- responded as follows: Good afternoon- I reviewed your BG data- I would recommend that you increase NPH slightly to 28 units at bedtime . Continue Humalog 5 units with breakfast, 10 units with lunch and 10 units with dinner (+ 8 units with higher carb meals)- arleth with * as you are doing if/when you take the extra insulin. Will review again next week- thanks! KB Allergies As of Date: 12/28/2024 Noted Allergy Reaction CEPHALEXIN 05/01/2022 2 - Rash Date Reviewed: 12/25/2024 Reviewed by: Janice Pina MA - Fully Assessed Reason for Visit: Blood Sugar Reading [1269] Order(s):insulin NPH (HUMULIN N NPH INSULIN KWIKPEN) 100 unit/mL (3 mL) injection pen28 units at bedtimeDisp: 5 eachRfl: 11 Prescriptions as of 12/28/2024 - insulin NPH (HUMULIN N NPH INSULIN KWIKPEN) 100 unit/mL (3 mL) injection pen 28 units at bedtime - diphenhydrAMINE (UNISOM SLEEPMINIS) 25 mg capsule Take 1 capsule by mouth at bedtime as needed. - insulin lispro (HUMALOG KWIKPEN) 100 unit/mL 5-10-10 units prior to meals + scale upto 55 units/day . - ferrous sulfate 325 mg (65 mg iron) tablet Take 1 tablet by mouth every other day. - famotidine (PEPCID) 20 mg tablet Take 1 tablet by mouth two times a day. - Insulin Montgomery, Disposable, (PEN NEEDLE) 32 gauge x 5/32 Use to inject insulin up to 4 times per day. - Blood-Glucose Meter Use as directed to check glucose levels up to seven times daily. - blood sugar diagnostic test strip Use as directed to check glucose levels up to seven times daily. - Lancets Use as directed to check glucose levels up to seven times daily. - alcohol swabs (ALCOHOL PREP PADS) Use as directed to check glucose levels up to seven times daily. - fluticasone (FLONASE) 50 mcg/actuation nasal spray Use 2 Sprays in each nostril once daily. Rinse mouth after use. - aspirin, enteric coated (ECOTRIN LOW STRENGTH) 81 mg EC tablet Take 1 tablet by mouth once daily. - citalopram (CELEXA) 20 mg tablet Take 20 mg by mouth once daily. - no115/iron/folic acid ( 19 ORAL) Take 1 tablet by mouth once daily. - albuterol HFA (PROVENTIL HFA, VENTOLIN HFA) 90 mcg/actuation inhaler Inhale 2 Puffs as instructed every 4 hours as needed for wheezing/shortness of breath. Problem List As Of Date 12/28/2024 Noted Resolved Depression, major, recurrent, moderate (HCC) [F*07/11/2024 Generalized anxiety disorder [F41.1] 07/11/2024 Bipolar 1 disorder, mixed (HCC) [F31.60] 08/03/2024 Asthma [J45.909] Obesity during [O99.210] 08/03/2024 History of delivery [Z98.891] 08/03/2024 Anxiety [F41.9] 08/03/2024 History of gestational diabetes mellitus (GDM) *08/03/2024 11/06/2024 Elevated hemoglobin A1c [R73.09] 09/15/2024 11/06/2024 Anemia complicating , second trimester*09/15/2024 Elevated glucose tolerance test [R73.09] 09/18/2024 Pre-existing diabetes mellitus in in *09/18/2024 Prescriptions ordered this encounter Disp Refills Start End HUMULIN N NPH U-100 INSULIN KWIKPEN * 5 ea* 11 12/28/2024 Class: Med Update Si units at bedtime Medications Discontinued During This Encounter Prescriptions - insulin NPH (HUMULIN N NPH INSULIN KWIKPEN) 100 unit/mL (3 mL) injection pen (Discontinued) 25 units at bedtime Encounter Status:Closed by LALITO ROCHA on 12/28/24 Normal [facility] CBC W Auto Differential pane l (Bld)on 12-25-2024 Basophils (Bld) [#/Vol] 0.03 10*3/uL Normal <0.11 [facility] 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: Order Comment: Specimen Type: BLOOD SPEC IMEN Ordering Facility: [facility] Address: [address] [place] [address] Performed By: #### 5 7021-8 #### [facility] CLIA [id number] [address] [place] [address] [place] Basophils/100 WBC (Bld) 0.4 % Normal [facility] 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: Order Comment: Specimen Type: BLOOD SPEC IMEN Ordering Facility: [facility] Address: [address] [place] [address] Performed By: #### 5 7021-8 #### [facility] CLIA [id number] [address] [place] [address] [place] Differential cell count method Nom (Bld) Auto Normal [facility] 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: Order Comment: Specimen Type: BLOOD SPEC IMEN Ordering Facility: [facility] Address: [address] [place] [address] Performed By: #### 5 7021-8 #### [facility] CLIA [id number] [address] [place] [address] [place] Eosinophils (Bld) [#/Vol] 0.15 10*3/uL Normal <0.46 [facility] 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: Order Comment: Specimen Type: BLOOD SPEC IMEN Ordering Facility: [facility] Address: [address] [place] [address] Performed By: #### 5 7021-8 #### [facility] CLIA [id number] [address] [place] [address] [place] Eosinophils/100 WBC (Bld) 2.0 % Normal [facility] 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: Order Comment: Specimen Type: BLOOD SPEC IMEN Ordering Facility: [facility] Address: [address] [place] [address] Performed By: #### 5 7021-8 #### [facility] CLIA [id number] [address] [place] [address] [place] Erythrocyte distribution width (RBC) [Ratio] 17.9 % High 11.5-15.0 [facility] 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: Order Comment: Specimen Type: BLOOD SPEC IMEN Ordering Facility: [facility] Address: [address] [place] [address] Performed By: #### 5 7021-8 #### [facility] CLIA [id number] [address] [place] [address] [place] Hematocrit (Bld) [Volume fraction] 27.7 % Low 36.0-46.0 [facility] 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: Order Comment: Specimen Type: BLOOD SPEC IMEN Ordering Facility: [facility] Address: [address] [place] [address] Performed By: #### 5 7021-8 #### [facility] CLIA [id number] [address] [place] [address] [place] Hemoglobin (Bld) [Mass/Vol] 8.6 g/dL Low 11.5-15.5 [facility] 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: Order Comment: Specimen Type: BLOOD SPEC IMEN Ordering Facility: [facility] Address: [address] [place] [address] Performed By: #### 5 7021-8 #### [facility] CLIA [id number] [address] [place] [address] [place] Immature granulocytes (Bld) [#/Vol] 0.05 10*3/uL Normal <0.10 [facility] 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: Order Comment: Specimen Type: BLOOD SPEC IMEN Ordering Facility: [facility] Address: [address] [place] [address] Performed By: #### 5 7021-8 #### [facility] CLIA [id number] [address] [place] [address] [place] Immature granulocytes/100 WBC (Bld) 0.7 % Normal [facility] 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: Order Comment: Specimen Type: BLOOD SPEC IMEN Ordering Facility: [facility] Address: [address] [place] [address] Performed By: #### 5 7021-8 #### [facility] CLIA [id number] [address] [place] [address] [place] Lymphocytes (Bld) [#/Vol] 1.51 10*3/uL Normal 1.00-4.00 [facility] 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: Order Comment: Specimen Type: BLOOD SPEC IMEN Ordering Facility: [facility] Address: [address] [place] [address] Performed By: #### 5 7021-8 #### [facility] CLIA [id number] [address] [place] [address] [place] Lymphocytes/100 WBC (Bld) 19.8 % Normal [facility] 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: Order Comment: Specimen Type: BLOOD SPEC IMEN Ordering Facility: [facility] Address: [address] [place] [address] Performed By: #### 5 7021-8 #### [facility] CLIA [id number] [address] [place] [address] MCH (RBC) [Entitic mass] 27.5 pg Normal 26.0-34.0 [facility] 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: Order Comment: Specimen Type: BLOOD SPEC IMEN Ordering Facility: [facility] Address: [address] [place] [address] Performed By: #### 5 7021-8 #### [facility] CLIA [id number] [address] [place] [address] [place] MCHC (RBC) [Mass/Vol] 31.0 g/dL Normal 30.5-36.0 [facility] 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: Order Comment: Specimen Type: BLOOD SPEC IMEN Ordering Facility: [facility] Address: [address] [place] [address] Performed By: #### 5 7021-8 #### [facility] CLIA [id number] [address] [place] [address] [place] MCV (RBC) [Entitic vol] 88.5 fL Normal 80.0-100.0 [facility] 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: Order Comment: Specimen Type: BLOOD SPEC IMEN Ordering Facility: [facility] Address: [address] [place] [address] Performed By: #### 5 7021-8 #### [facility] CLIA [id number] [address] [place] [address] [place] Monocytes (Bld) [#/Vol] 0.41 10*3/uL Normal <0.87 [facility] 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: Order Comment: Specimen Type: BLOOD SPEC IMEN Ordering Facility: [facility] Address: [address] [place] [address] Performed By: #### 5 7021-8 #### [facility] CLIA [id number] [address] [place] [address] [place] Monocytes/100 WBC (Bld) 5.4 % Normal [facility] 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: Order Comment: Specimen Type: BLOOD SPEC IMEN Ordering Facility: [facility] Address: [address] [place] [address] Performed By: #### 5 7021-8 #### [facility] CLIA [id number] [address] [place] [address] [place] Neutrophils (Bld) [#/Vol] 5.49 10*3/uL Normal 1.45-7.50 [facility] 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: Order Comment: Specimen Type: BLOOD SPEC IMEN Ordering Facility: [facility] Address: [address] [place] [address] Performed By: #### 5 7021-8 #### [facility] CLIA [id number] [address] [place] [address] [place] Neutrophils/100 WBC (Bld) 71.7 % Normal [facility] 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: Order Comment: Specimen Type: BLOOD SPEC IMEN Ordering Facility: [facility] Address: [address] [place] [address] Performed By: #### 5 7021-8 #### [facility] CLIA [id number] [address] [place] [address] [place] Nucleated RBC (Bld) [#/Vol] 10*3/uL Normal <0.01 [facility] 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: Order Comment: Specimen Type: BLOOD SPEC IMEN Ordering Facility: [facility] Address: [address] [place] [address] Performed By: #### 5 7021-8 #### [facility] CLIA [id number] [address] [place] [address] [place] Nucleated RBC/100 WBC (Bld) [Ratio] 0.0 /100 WBC Normal [facility] 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: Order Comment: Specimen Type: BLOOD SPEC IMEN Ordering Facility: [facility] Address: [address] [place], [place] [address] Performed By: #### 5 7021-8 #### [facility] CLIA [id number] [address] [place] [address] [place] Platelet mean volume (Bld) [Entitic vol] 10.5 fL Normal 9.0-12.7 [facility] 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: Order Comment: Specimen Type: BLOOD SPEC IMEN Ordering Facility: [facility] Address: [address] [place], [place] [address] Performed By: #### 5 7021-8 #### [facility] CLIA [id number] [address] [place] [address] [place] Platelets (Bld) [#/Vol] 289 10*3/uL Normal 150-400 [facility] 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: Order Comment: Specimen Type: BLOOD SPEC IMEN Ordering Facility: [facility] Address: [address] [place] [address] Performed By: #### 5 7021-8 #### [facility] CLIA [id number] [address] [place] [address] [place] RBC (Bld) [#/Vol] 3.13 10*6/uL Low 3.90-5.20 [facility] 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: Order Comment: Specimen Type: BLOOD SPEC IMEN Ordering Facility: [facility] Address: [address] [place] [address] Performed By: #### 5 7021-8 #### [facility] CLIA [id number] [address] [place] [address] [place] WBC (Bld) [#/Vol] 7.64 10*3/uL Normal 3.70-11.00 [facility] 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: Order Comment: Specimen Type: BLOOD SPEC IMEN Ordering Facility: [facility] Address: [address] [place] [address] Performed By: #### 5 7021-8 #### [facility] CLIA [id number] [address] [place] [address] [place] Examination level ultrasound on 12-25-2024 [facility] Radiology Study observation (narrative) [facility] Ferritin SerPl-mCncon 2024 Ferritin [Mass/Vol] 14.5 ng/mL Low 14.7-205.1 [facility] 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: Order Comment: Specimen Type: BLOOD SPEC IMEN Ordering Facility: [facility] Address: [address] [place] [address] Performed By: #### M AT21 #### [facility] CLIA [id number] [address] [place] [address] Iron and Iron binding capaci ty panelon 12-25-2024 Iron [Mass/Vol] 59 ug/dL Normal 41-186 [facility] 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: Order Comment: Specimen Type: BLOOD SPEC IMEN Ordering Facility: [facility] Address: [address] [place] [address] Performed By: #### M AT21 #### [facility] CLIA [id number] [address] [place] [address] Iron binding capacity [Mass/Vol] 542 ug/dL High 232-386 [facility] 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: Order Comment: Specimen Type: BLOOD SPEC IMEN Ordering Facility: [facility] Address: [address] [place] [address] Performed By: #### M AT21 #### [facility] CLIA [id number] [address] [place] [address] Iron/TIBC [Molar ratio] 10.9 % Low 15.0-57.0 [facility] 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: Order Comment: Specimen Type: BLOOD SPEC IMEN Ordering Facility: [facility] Address: [address] [place] [address] Performed By: #### M AT21 #### [facility] CLIA [id number] [address] [place] [address] Reagin and Treponema pallidu m IgG and IgM [Interp]on 12-25-2024 T. pallidum IgG+IgM IA Ql (S) Non-Reactive Normal Nonreactive [facility] 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: Order Comment: Specimen Type: BLOOD SPEC IMEN Ordering Facility: [facility] Address: [address] [place] [address] Performed By: #### 7 3752-8 #### [facility] CLIA [id number] [address] [place] [address] [place] Reagin+T pallidum IgG+IgM Se rPl-Impon 12-25-2024 Reagin and Treponema pallidum IgG and IgM [Interp] Cannot exclude recent Treponemal infection if specimen collected within 7-10 days after appearance of suspect lesions or 2-3 weeks after an exposure. Clinical correlation is required. Normal [facility] 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: Order Comment: Specimen Type: BLOOD SPEC IMEN Ordering Facility: [facility] Address: [address] [place] [address] Performed By: #### 7 3752-8 #### [facility] CLIA [id number] [address] [place] [address] [place] URINE OB DIP B/Oon 5 Glucose Ql (U) Negative Neg mg/dL [facility] Protein.monoclon al (U) [Mass/Vol] Negative Neg mg/dL [facility] CNPNon 12-20-2024 CNPN Telephone (ENDOAL) VAL RUIZ ([id number]) 2000 F Date Time Provider Department 12/20/24 LALITO ROCHA ENDOAL During your visit today, we recorded the following information about you: Lalito Rocha, DO 12/20/2024 7:16 PM Signed Reviewed BG data- responded as follows: Good afternoon- I reviewed your BG data- the majority of these values remain at goal for - continue your current regimen: NPH 25 units at bedtime Humalog 5 units with breakfast, 10 units with lunch and 10 units with dinner (+ 8 units with higher carb meals)- will review again next week- thanks! KB Allergies As of Date: 12/20/2024 Noted Allergy Reaction CEPHALEXIN 05/01/2022 2 - Rash Date Reviewed: 12/03/2024 Reviewed by: Alfred Arcos MD - Fully Assessed Reason for Visit: Blood Sugar Reading [1269] Prescriptions as of 12/20/2024 - insulin lispro (HUMALOG KWIKPEN) 100 unit/mL 5-10-10 units prior to meals + scale upto 55 units/day . - insulin NPH (HUMULIN N NPH INSULIN KWIKPEN) 100 unit/mL (3 mL) injection pen 25 units at bedtime - ferrous sulfate 325 mg (65 mg iron) tablet Take 1 tablet by mouth every other day. - famotidine (PEPCID) 20 mg tablet Take 1 tablet by mouth two times a day. - Insulin Montgomery, Disposable, (PEN NEEDLE) 32 gauge x 5/32 Use to inject insulin up to 4 times per day. - Blood-Glucose Meter Use as directed to check glucose levels up to seven times daily. - blood sugar diagnostic test strip Use as directed to check glucose levels up to seven times daily. - Lancets Use as directed to check glucose levels up to seven times daily. - alcohol swabs (ALCOHOL PREP PADS) Use as directed to check glucose levels up to seven times daily. - diphenhydramine HCl (BENADRYL ALLERGY ORAL) Take by mouth daily at bedtime. - fluticasone (FLONASE) 50 mcg/actuation nasal spray Use 2 Sprays in each nostril once daily. Rinse mouth after use. - aspirin, enteric coated (ECOTRIN LOW STRENGTH) 81 mg EC tablet Take 1 tablet by mouth once daily. - citalopram (CELEXA) 20 mg tablet Take 20 mg by mouth once daily. - no115/iron/folic acid ( 19 ORAL) Take 1 tablet by mouth once daily. - albuterol HFA (PROVENTIL HFA, VENTOLIN HFA) 90 mcg/actuation inhaler Inhale 2 Puffs as instructed every 4 hours as needed for wheezing/shortness of breath. Problem List As Of Date 12/20/2024 Noted Resolved Depression, major, recurrent, moderate (HCC) [F*07/11/2024 Generalized anxiety disorder [F41.1] 07/11/2024 Bipolar 1 disorder, mixed (HCC) [F31.60] 08/03/2024 Asthma [J45.909] Obesity during [O99.210] 08/03/2024 History of delivery [Z98.891] 08/03/2024 Anxiety [F41.9] 08/03/2024 History of gestational diabetes mellitus (GDM) *08/03/2024 11/06/2024 Elevated hemoglobin A1c [R73.09] 09/15/2024 11/06/2024 Anemia complicating , second trimester*09/15/2024 Elevated glucose tolerance test [R73.09] 09/18/2024 Pre-existing diabetes mellitus in in *09/18/2024 Encounter Status:Closed by LALITO ROCHA on 12/20/24 [facility] 12-15-2024 CNPN Telephone (ENDOAL) VAL RUIZ ([id number]) 2000 F Date Time Provider Department 12/15/24 LALITO ROCHA ENDOAL During your visit today, we recorded the following information about you: Lalito Rocha, 12/15/2024 5:04 PM Signed Reviewed BG data- responded as follows: Good afternoon- I reviewed your BG data- these numbers are at/near goal. I would recommend that you continue NPH 25 units at bedtime. Continue Humalog 5 units prior to breakfast, increase to 10 units prior to lunch and 10 units prior to dinner + additional 8 units of Humalog with higher carb meals (arleth with * as you are doing). Will review again next week- thanks! KB Allergies As of Date: 12/15/2024 Noted Allergy Reaction CEPHALEXIN 05/01/2022 2 - Rash Date Reviewed: 12/03/2024 Reviewed by: Alfred Arcos MD - Fully Assessed Reason for Visit: Blood Sugar Reading [1269] Order(s):insulin lispro (HUMALOG KWIKPEN) 100 unit/mL5-10-10 units prior to meals + scale upto 55 units/day .Disp: 10 EachRfl: 11 Prescriptions as of 12/15/2024 - insulin lispro (HUMALOG KWIKPEN) 100 unit/mL 5-10-10 units prior to meals + scale upto 55 units/day . - insulin NPH (HUMULIN N NPH INSULIN KWIKPEN) 100 unit/mL (3 mL) injection pen 25 units at bedtime - ferrous sulfate 325 mg (65 mg iron) tablet Take 1 tablet by mouth every other day. - famotidine (PEPCID) 20 mg tablet Take 1 tablet by mouth two times a day. - Insulin Montgomery, Disposable, (PEN NEEDLE) 32 gauge x 5/32 Use to inject insulin up to 4 times per day. - Blood-Glucose Meter Use as directed to check glucose levels up to seven times daily. - blood sugar diagnostic test strip Use as directed to check glucose levels up to seven times daily. - Lancets Use as directed to check glucose levels up to seven times daily. - alcohol swabs (ALCOHOL PREP PADS) Use as directed to check glucose levels up to seven times daily. - diphenhydramine HCl (BENADRYL ALLERGY ORAL) Take by mouth daily at bedtime. - fluticasone (FLONASE) 50 mcg/actuation nasal spray Use 2 Sprays in each nostril once daily. Rinse mouth after use. - aspirin, enteric coated (ECOTRIN LOW STRENGTH) 81 mg EC tablet Take 1 tablet by mouth once daily. - citalopram (CELEXA) 20 mg tablet Take 20 mg by mouth once daily. - no115/iron/folic acid ( 19 ORAL) Take 1 tablet by mouth once daily. - albuterol HFA (PROVENTIL HFA, VENTOLIN HFA) 90 mcg/actuation inhaler Inhale 2 Puffs as instructed every 4 hours as needed for wheezing/shortness of breath. Problem List As Of Date 12/15/2024 Noted Resolved Depression, major, recurrent, moderate (HCC) [F*07/11/2024 Generalized anxiety disorder [F41.1] 07/11/2024 Bipolar 1 disorder, mixed (HCC) [F31.60] 08/03/2024 Asthma [J45.909] Obesity during [O99.210] 08/03/2024 History of delivery [Z98.891] 08/03/2024 Anxiety [F41.9] 08/03/2024 History of gestational diabetes mellitus (GDM) *08/03/2024 11/06/2024 Elevated hemoglobin A1c [R73.09] 09/15/2024 11/06/2024 Anemia complicating , second trimester*09/15/2024 Elevated glucose tolerance test [R73.09] 09/18/2024 Pre-existing diabetes mellitus in in *09/18/2024 Prescriptions ordered this encounter Disp Refills Start End INSULIN LISPRO (U-100) 100 UNIT/ML S* 10 E* 11 12/15/2024 Class: Med Update Si-10-10 units prior to meals + scale upto 55 units/day . Medications Discontinued During This Encounter Prescriptions - insulin lispro (HUMALOG KWIKPEN) 100 unit/mL (Discontinued) 5-8-8 units prior to meals + scale upto 55 units/day . Encounter Status:Closed by LALITO ROCHA on 12/15/24 [facility] Yoly 12-07-2024 ROSA Telephone (CRISWBoo) VAL RUIZ ([id number]) 2000 F Date Time Provider Department 12/07/24 ALFRED ARCOS During your visit today, we recorded the following information about you: Elena Parker RN 12/07/2024 8:45 AM Signed Breast pump order received from [employer]. To WINTER to sign. NAZ Mantilla Trisha, RN 12/08/2024 4:42 PM Signed Order signed and faxed. Elena Parker RN Allergies As of Date: 12/07/2024 Noted Allergy Reaction CEPHALEXIN 05/01/2022 2 - Rash Date Reviewed: 12/03/2024 Reviewed by: Alfred Arcos MD - Fully Assessed Reason for Visit: Breast Pump [Other] Prescriptions as of 12/08/2024 - insulin lispro (HUMALOG KWIKPEN) 100 unit/mL 5-8-8 units prior to meals + scale upto 55 units/day . - insulin NPH (HUMULIN N NPH INSULIN KWIKPEN) 100 unit/mL (3 mL) injection pen 25 units at bedtime - ferrous sulfate 325 mg (65 mg iron) tablet Take 1 tablet by mouth every other day. - famotidine (PEPCID) 20 mg tablet Take 1 tablet by mouth two times a day. - Insulin Montgomery, Disposable, (PEN NEEDLE) 32 gauge x 5/32 Use to inject insulin up to 4 times per day. - Blood-Glucose Meter Use as directed to check glucose levels up to seven times daily. - blood sugar diagnostic test strip Use as directed to check glucose levels up to seven times daily. - Lancets Use as directed to check glucose levels up to seven times daily. - alcohol swabs (ALCOHOL PREP PADS) Use as directed to check glucose levels up to seven times daily. - diphenhydramine HCl (BENADRYL ALLERGY ORAL) Take by mouth daily at bedtime. - fluticasone (FLONASE) 50 mcg/actuation nasal spray Use 2 Sprays in each nostril once daily. Rinse mouth after use. - aspirin, enteric coated (ECOTRIN LOW STRENGTH) 81 mg EC tablet Take 1 tablet by mouth once daily. - citalopram (CELEXA) 20 mg tablet Take 20 mg by mouth once daily. - no115/iron/folic acid ( 19 ORAL) Take 1 tablet by mouth once daily. - albuterol HFA (PROVENTIL HFA, VENTOLIN HFA) 90 mcg/actuation inhaler Inhale 2 Puffs as instructed every 4 hours as needed for wheezing/shortness of breath. Problem List As Of Date 12/07/2024 Noted Resolved Depression, major, recurrent, moderate (HCC) [F*07/11/2024 Generalized anxiety disorder [F41.1] 07/11/2024 Bipolar 1 disorder, mixed (HCC) [F31.60] 08/03/2024 Asthma [J45.909] Obesity during [O99.210] 08/03/2024 History of delivery [Z98.891] 08/03/2024 Anxiety [F41.9] 08/03/2024 History of gestational diabetes mellitus (GDM) *08/03/2024 11/06/2024 Elevated hemoglobin A1c [R73.09] 09/15/2024 11/06/2024 Anemia complicating , second trimester*09/15/2024 Elevated glucose tolerance test [R73.09] 09/18/2024 Pre-existing diabetes mellitus in in *09/18/2024 Encounter Status:Closed by ELENA PARKER on 12/08/24 Normal [facility] Examination level ultrasound on 12-03-2024 [facility] Radiology Study observation (narrative) [facility] URINE OB DIP B/Oon Glucose Ql (U) Negative Neg mg/dL [facility] Interpretation and review of laboratory results Normal [facility] Protein.monoclon al (U) [Mass/Vol] Negative Neg mg/dL [facility] CNPNon 11-30-2024 CNPN Telephone (ENDOAL) VAL RUIZ ([id number]) 2000 F Date Time Provider Department 11/30/24 LALITO ROCHA ENDOAL During your visit today, we recorded the following information about you: Lalito Rocha DO 11/30/2024 3:11 PM Signed Reviewed BG data- responded as follows; Good afternoon- I reviewed your BG data- these numbers look good overall and are at goal for - continue your current regimen as you are doing: NPH 25 units at bedtime Humalog 5 units prior to breakfast, Humalog 8 units prior to lunch and 8 units prior to dinner (+ additional 5 units of Humalog with any higher carb meals as you are doing. Will review again next week- thanks! KB Allergies As of Date: 11/30/2024 Noted Allergy Reaction CEPHALEXIN 05/01/2022 2 - Rash Date Reviewed: 11/11/2024 Reviewed by: Edie Mayer MD - Fully Assessed Reason for Visit: Blood Sugar Reading [1269] Prescriptions as of 11/30/2024 - insulin NPH (HUMULIN N NPH INSULIN KWIKPEN) 100 unit/mL (3 mL) injection pen 25 units at bedtime - famotidine (PEPCID) 20 mg tablet Take 1 tablet by mouth two times a day. - insulin lispro (HUMALOG KWIKPEN) 100 unit/mL 5-8-8 units prior to meals + scale. - Insulin Montgomery, Disposable, (PEN NEEDLE) 32 gauge x 5/32 Use to inject insulin up to 4 times per day. - Blood-Glucose Meter Use as directed to check glucose levels up to seven times daily. - blood sugar diagnostic test strip Use as directed to check glucose levels up to seven times daily. - Lancets Use as directed to check glucose levels up to seven times daily. - alcohol swabs (ALCOHOL PREP PADS) Use as directed to check glucose levels up to seven times daily. - diphenhydramine HCl (BENADRYL ALLERGY ORAL) Take by mouth daily at bedtime. - fluticasone (FLONASE) 50 mcg/actuation nasal spray Use 2 Sprays in each nostril once daily. Rinse mouth after use. - aspirin, enteric coated (ECOTRIN LOW STRENGTH) 81 mg EC tablet Take 1 tablet by mouth once daily. - citalopram (CELEXA) 20 mg tablet Take 20 mg by mouth once daily. - no115/iron/folic acid ( 19 ORAL) Take 1 tablet by mouth once daily. - albuterol HFA (PROVENTIL HFA, VENTOLIN HFA) 90 mcg/actuation inhaler Inhale 2 Puffs as instructed every 4 hours as needed for wheezing/shortness of breath. Problem List As Of Date 11/30/2024 Noted Resolved Depression, major, recurrent, moderate (HCC) [F*07/11/2024 Generalized anxiety disorder [F41.1] 07/11/2024 Bipolar 1 disorder, mixed (HCC) [F31.60] 08/03/2024 Asthma [J45.909] Obesity during [O99.210] 08/03/2024 History of delivery [Z98.891] 08/03/2024 Anxiety [F41.9] 08/03/2024 History of gestational diabetes mellitus (GDM) *08/03/2024 11/06/2024 Elevated hemoglobin A1c [R73.09] 09/15/2024 11/06/2024 Anemia complicating , second trimester*09/15/2024 Elevated glucose tolerance test [R73.09] 09/18/2024 Pre-existing diabetes mellitus in in *09/18/2024 Encounter Status:Closed by LALITO ROCHA on 11/30/24 [facility] 11-22-2024 CNPN Telephone (ENDOAL) VAL RUIZ ([id number]) 2000 F Date Time Provider Department 11/22/24 LALITO ROCHA ENDOAL During your visit today, we recorded the following information about you: Lalito Rocha DO 11/22/2024 3:48 PM Signed Reviewed BG data- responded as follows: Ok thanks! I reviewed your BG data- these numbers remain at goal for (overall)- continue your current regimen: NPH 25 units at bedtime Humalog 5 units prior to breakfast, Humalog 8 units prior to lunch and 8 units prior to dinner (+ additional 5 units of Humalog with any higher carb meals as you are doing. Will review again next week- thanks! KB Allergies As of Date: 11/22/2024 Noted Allergy Reaction CEPHALEXIN 05/01/2022 2 - Rash Date Reviewed: 11/11/2024 Reviewed by: Edie Mayer MD - Fully Assessed Reason for Visit: Blood Sugar Reading [1269] Prescriptions as of 11/22/2024 - insulin NPH (HUMULIN N NPH INSULIN KWIKPEN) 100 unit/mL (3 mL) injection pen 25 units at bedtime - famotidine (PEPCID) 20 mg tablet Take 1 tablet by mouth two times a day. - insulin lispro (HUMALOG KWIKPEN) 100 unit/mL 5-8-8 units prior to meals + scale. - Insulin Montgomery, Disposable, (PEN NEEDLE) 32 gauge x 5/32 Use to inject insulin up to 4 times per day. - Blood-Glucose Meter Use as directed to check glucose levels up to seven times daily. - blood sugar diagnostic test strip Use as directed to check glucose levels up to seven times daily. - Lancets Use as directed to check glucose levels up to seven times daily. - alcohol swabs (ALCOHOL PREP PADS) Use as directed to check glucose levels up to seven times daily. - diphenhydramine HCl (BENADRYL ALLERGY ORAL) Take by mouth daily at bedtime. - fluticasone (FLONASE) 50 mcg/actuation nasal spray Use 2 Sprays in each nostril once daily. Rinse mouth after use. - aspirin, enteric coated (ECOTRIN LOW STRENGTH) 81 mg EC tablet Take 1 tablet by mouth once daily. - citalopram (CELEXA) 20 mg tablet Take 20 mg by mouth once daily. - no115/iron/folic acid ( 19 ORAL) Take 1 tablet by mouth once daily. - albuterol HFA (PROVENTIL HFA, VENTOLIN HFA) 90 mcg/actuation inhaler Inhale 2 Puffs as instructed every 4 hours as needed for wheezing/shortness of breath. Problem List As Of Date 11/22/2024 Noted Resolved Depression, major, recurrent, moderate (HCC) [F*07/11/2024 Generalized anxiety disorder [F41.1] 07/11/2024 Bipolar 1 disorder, mixed (HCC) [F31.60] 08/03/2024 Asthma [J45.909] Obesity during [O99.210] 08/03/2024 History of delivery [Z98.891] 08/03/2024 Anxiety [F41.9] 08/03/2024 History of gestational diabetes mellitus (GDM) *08/03/2024 11/06/2024 Elevated hemoglobin A1c [R73.09] 09/15/2024 11/06/2024 Anemia complicating , second trimester*09/15/2024 Elevated glucose tolerance test [R73.09] 09/18/2024 Pre-existing diabetes mellitus in in *09/18/2024 Encounter Status:Closed by LALITO ROCHA on 11/22/24 [facility] 11-15-2024 CNPN Telephone (ENDOAL) VAL RUIZ ([id number]) 2000 F Date Time Provider Department 11/15/24 LALITO ROCHA ENDOAL During your visit today, we recorded the following information about you: Lalito Rocha DO 11/15/2024 7:47 AM Signed Reviewed BG data- responded as follows: Good morning- I reviewed your BG data/ message below- these numbers look good overall (some ups/downs but majority are at goal)- continue NPH 25 units at bedtime, Humalog 5 units prior to breakfast, Humalog 8 units prior to lunch and 8 units prior to dinner (+ additional 5 units of Humalog with any higher carb meals as you are doing ( arleth with * if/when you take the extra insulin so I can see if it is working or not). Will review again next week- thanks! KB Allergies As of Date: 11/15/2024 Noted Allergy Reaction CEPHALEXIN 05/01/2022 2 - Rash Date Reviewed: 11/11/2024 Reviewed by: Edie Mayer MD - Fully Assessed Reason for Visit: Blood Sugar Reading [1269] Prescriptions as of 11/15/2024 - insulin NPH (HUMULIN N NPH INSULIN KWIKPEN) 100 unit/mL (3 mL) injection pen 25 units at bedtime - famotidine (PEPCID) 20 mg tablet Take 1 tablet by mouth two times a day. - insulin lispro (HUMALOG KWIKPEN) 100 unit/mL 5-8-8 units prior to meals + scale. - Insulin Montgomery, Disposable, (PEN NEEDLE) 32 gauge x 532 Use to inject insulin up to 4 times per day. - Blood-Glucose Meter Use as directed to check glucose levels up to seven times daily. - blood sugar diagnostic test strip Use as directed to check glucose levels up to seven times daily. - Lancets Use as directed to check glucose levels up to seven times daily. - alcohol swabs (ALCOHOL PREP PADS) Use as directed to check glucose levels up to seven times daily. - diphenhydramine HCl (BENADRYL ALLERGY ORAL) Take by mouth daily at bedtime. - fluticasone (FLONASE) 50 mcg/actuation nasal spray Use 2 Sprays in each nostril once daily. Rinse mouth after use. - aspirin, enteric coated (ECOTRIN LOW STRENGTH) 81 mg EC tablet Take 1 tablet by mouth once daily. - citalopram (CELEXA) 20 mg tablet Take 20 mg by mouth once daily. - no115/iron/folic acid ( 19 ORAL) Take 1 tablet by mouth once daily. - albuterol HFA (PROVENTIL HFA, VENTOLIN HFA) 90 mcg/actuation inhaler Inhale 2 Puffs as instructed every 4 hours as needed for wheezing/shortness of breath. Problem List As Of Date 11/15/2024 Noted Resolved Depression, major, recurrent, moderate (HCC) [F*07/11/2024 Generalized anxiety disorder [F41.1] 07/11/2024 Bipolar 1 disorder, mixed (HCC) [F31.60] 08/03/2024 Asthma [J45.909] Obesity during [O99.210] 08/03/2024 History of delivery [Z98.891] 08/03/2024 Anxiety [F41.9] 08/03/2024 History of gestational diabetes mellitus (GDM) *08/03/2024 11/06/2024 Elevated hemoglobin A1c [R73.09] 09/15/2024 11/06/2024 Anemia complicating , second trimester*09/15/2024 Elevated glucose tolerance test [R73.09] 09/18/2024 Pre-existing diabetes mellitus in in *09/18/2024 Encounter Status:[facility] ([id number]) 2000 F Date Time Provider Department 11/10/24 LALITO ROCHA ENDOAL During your visit today, we recorded the following information about you: Lalito Rocha DO 11/10/2024 9:21 AM Signed Reviewed BG data- responded as follows: Good morning- I reviewed your BG data- overall these numbers are at/near goal. Lets increase NPH slightly to 25 units at bedtime continue Humalog 5 units prior to breakfast, Humalog 8 units prior to lunch and 8 units prior to dinner (+ additional 5 units of Humalog with any higher carb meals as you are doing ( arleth with * if/when you take the extra insulin so I can see if it is working or not). You may want to be a bit more aggressive with the use of the higher carb insulin- will help reduce the variability in your post meal data. Will review again next week- thanks! Dr Rocha Allergies As of Date: 11/10/2024 Noted Allergy Reaction CEPHALEXIN 05/01/2022 2 - Rash Date Reviewed: 11/06/2024 Reviewed by: Alfred Arcos MD - Fully Assessed Reason for Visit: Blood Sugar Reading [1269] Order(s):insulin NPH (HUMULIN N NPH INSULIN KWIKPEN) 100 unit/mL (3 mL) injection pen25 units at bedtimeDisp: 5 EachRfl: 11 Prescriptions as of 11/10/2024 - insulin NPH (HUMULIN N NPH INSULIN KWIKPEN) 100 unit/mL (3 mL) injection pen 25 units at bedtime - famotidine (PEPCID) 20 mg tablet Take 1 tablet by mouth two times a day. - insulin lispro (HUMALOG KWIKPEN) 100 unit/mL 5-8-8 units prior to meals + scale. - Insulin Montgomery, Disposable, (PEN NEEDLE) 32 gauge x 5/32 Use to inject insulin up to 4 times per day. - Blood-Glucose Meter Use as directed to check glucose levels up to seven times daily. - blood sugar diagnostic test strip Use as directed to check glucose levels up to seven times daily. - Lancets Use as directed to check glucose levels up to seven times daily. - alcohol swabs (ALCOHOL PREP PADS) Use as directed to check glucose levels up to seven times daily. - diphenhydramine HCl (BENADRYL ALLERGY ORAL) Take by mouth daily at bedtime. - fluticasone (FLONASE) 50 mcg/actuation nasal spray Use 2 Sprays in each nostril once daily. Rinse mouth after use. - aspirin, enteric coated (ECOTRIN LOW STRENGTH) 81 mg EC tablet Take 1 tablet by mouth once daily. - citalopram (CELEXA) 20 mg tablet Take 20 mg by mouth once daily. - no115/iron/folic acid ( 19 ORAL) Take 1 tablet by mouth once daily. - albuterol HFA (PROVENTIL HFA, VENTOLIN HFA) 90 mcg/actuation inhaler Inhale 2 Puffs as instructed every 4 hours as needed for wheezing/shortness of breath. Problem List As Of Date 11/10/2024 Noted Resolved Depression, major, recurrent, moderate (HCC) [F*07/11/2024 Generalized anxiety disorder [F41.1] 07/11/2024 Bipolar 1 disorder, mixed (HCC) [F31.60] 08/03/2024 Asthma [J45.909] Obesity during [O99.210] 08/03/2024 History of delivery [Z98.891] 08/03/2024 Anxiety [F41.9] 08/03/2024 History of gestational diabetes mellitus (GDM) *08/03/2024 11/06/2024 Elevated hemoglobin A1c [R73.09] 09/15/2024 11/06/2024 Anemia complicating , second trimester*09/15/2024 Elevated glucose tolerance test [R73.09] 09/18/2024 Pre-existing diabetes mellitus in in *09/18/2024 Prescriptions ordered this encounter Disp Refills Start End HUMULIN N NPH U-100 INSULIN KWIKPEN * 5 Ea* 11 11/10/2024 Class: Med Update Si units at bedtime Medications Discontinued During This Encounter Prescriptions - insulin NPH (HUMULIN N NPH INSULIN KWIKPEN) 100 unit/mL (3 mL) injection pen (Discontinued) 22 units at bedtime Encounter Status:Closed by LALITO ROCHA on 11/10/24 Normal [facility] FETALon 11-10-2024 + --------+- + Pediatric Cardiology Echocardiogram Report + +- + NAME: VAL RUIZ : 2000 PT ID#: [id number] Age: 24 years Sex: F STUDY DATE: 11/10/2024 1:47:35 PM DEEP: 03/17/2025 GA: 21w6d Image Quality: Technically difficult and adequate. Referring Physician: Melissa Aguilera Diagnosing Physician: Edie Mayer Scoop Driver: Oksana Chaudhari [facility] 2nd Scoop Driver: Diagnosis: O35.9XX1 Suspected abnormality and damage, fetus 1 of multiple Procedure Code: 15373, 08228, 05204 Echo, Complete (w/Doppler and color) Exam Location: [facility] (). Indications: Evaluate cardiac anatomy and function Exam Quality: Images were suboptimal secondary to Activity. Color Doppler was utilized to interrogate the cardiac valves assessed. Spectral Doppler was utilized to determine the flow velocities and pressure gradients reported in this exam. History: Type 2 DM Parameters: Single/Multi: Scott Biometry: Biometry Table: Biparietal Diameter 5.21 cm Abdominal Circumference 16.48 cm Femur Length 3.51 cm Estimated Weight 443.15 g Vessels: Three-vessel umbilical cord is present. Umbilical artery flow Doppler is normal. Umbilical venous flow Doppler is normal. Ductus Venosus Doppler is normal. Cerebral Artery Doppler is normal. UA S/D 2.6 UA PI 0.94 MCA PI 1.59 Rate and Rhythm: Normal heart rate and rhythm. HR 150 bpm Mechanical MN 113 ms Segmental Anatomy, Cardiac Position and Situs: The segmental anatomy and situs are normal. Normal visceral situs. The heart position is within the left hemithorax (levo position). Levocardia (apex to the left). The aorta is to the right of the pulmonary artery. Segmental anatomy is S,D,S. Systemic Veins: Right superior vena cava is right sided and drains normally to the right atrium. The inferior vena cava is right sided and inserts normally into the right atrium. Pulmonary Veins: At least one pulmonary vein on each side drains to the left atrium. Atria: The right atrium is normal in size. The left atrium is normal in size. Widely patent foramen ovale with normal intrauterine right to left flow. Tricuspid Valve: The tricuspid valve is normal. Tricuspid valve inflow Doppler is biphasic. There is no tricuspid valve regurgitation. Right Ventricle: There is qualitatively normal right ventricular size and wall thickness with normal systolic function. Mitral Valve: The mitral valve is normal. There is no mitral valve regurgitation. Mitral valve inflow Doppler is biphasic. Left Ventricle: Normal left ventricular size and wall thickness with normal systolic function. VSD: There is no obvious ventricular septal defect. Conotruncal Anatomy: There is normal conotruncal anatomy. RVOT: There is no right ventricular outflow tract obstruction. Pulmonary Valve: The pulmonary valve is normal. There is no pulmonary valve stenosis. There is no pulmonary valve regurgitation. Pulmonary Arteries: The main and branch pulmonary arteries appear normal. The main pulmonary artery is normal. LVOT: There is no left ventricular outflow tract obstruction. Aortic Valve: The aortic valve is normal with no stenosis and no regurgitation. Aorta: Aortic arch is widely patent. Ductus Arteriosus: Ductal arch is widely patent with normal intrauterine right to left flow. Pericardium: There is no pericardial effusion. Measurements: 2D: Z-Score Aortic annulus 3.5 mm -0.04 MV annulus 5.2 mm -0.49 Pulmonary annulus 4.6 mm 0.64 TV annulus 5.1 mm -0.86 Summary 1. No structural abnormalities seen. 2. No valvar abnormalities seen. 3. Segmental anatomy and situs are normal. 4. Normal left ventricular size and wall thickness with normal systolic function. 5. Qualitatively normal right ventricular size and wall thickness with normal systolic function. 6. Aortic arch is widely patent. 7. Ductal arch is widely patent with normal intrauterine right to left flow. 8. Normal heart rate and rhythm and normal Dopplers. 9. No pericardial effusion. The results and limitations of the echocardiogram and echocardiography in general, including the inability to exclude ASDs, some VSDs, minor valvar abnormalities, partial anomalous pulmonary venous return, persistent patent ductus arteriosus, and coarctation of the aorta, were explained to the patient. Edie Chrissy Southshirleyluis manuelrenetta DO *Electronically signed on 11/10/2024 at 2:57:50 PM Final CC [employer] [facility] Image : [id number] See Link below for Image Normal [facility]oly 11-09-2024 [facility] Telephone ([id number]) VAL RUIZ ([id number]) 2000 F Date Time Provider Department 11/09/24 MELISSA CHAVEZ [id number] During your visit today, we recorded the following information about you: Melissa Chavez RN 11/09/2024 8:43 AM Signed 2nd risk assessment form submitted 11/09/2024. Melissa Chavez RN Allergies As of Date: 11/09/2024 Noted Allergy Reaction CEPHALEXIN 05/01/2022 2 - Rash Date Reviewed: 11/06/2024 Reviewed by: Alfred Arcos MD - Fully Assessed Reason for Visit: Para Operator - Other [8892] Cmt: PRAF Prescriptions as of 11/09/2024 - famotidine (PEPCID) 20 mg tablet Take 1 tablet by mouth two times a day. - insulin lispro (HUMALOG KWIKPEN) 100 unit/mL 5-8-8 units prior to meals + scale. - insulin NPH (HUMULIN N NPH INSULIN KWIKPEN) 100 unit/mL (3 mL) injection pen 22 units at bedtime - Insulin Montgomery, Disposable, (PEN NEEDLE) 32 gauge x 532 Use to inject insulin up to 4 times per day. - Blood-Glucose Meter Use as directed to check glucose levels up to seven times daily. - blood sugar diagnostic test strip Use as directed to check glucose levels up to seven times daily. - Lancets Use as directed to check glucose levels up to seven times daily. - alcohol swabs (ALCOHOL PREP PADS) Use as directed to check glucose levels up to seven times daily. - diphenhydramine HCl (BENADRYL ALLERGY ORAL) Take by mouth daily at bedtime. - fluticasone (FLONASE) 50 mcg/actuation nasal spray Use 2 Sprays in each nostril once daily. Rinse mouth after use. - aspirin, enteric coated (ECOTRIN LOW STRENGTH) 81 mg EC tablet Take 1 tablet by mouth once daily. - citalopram (CELEXA) 20 mg tablet Take 20 mg by mouth once daily. - no115/iron/folic acid ( 19 ORAL) Take 1 tablet by mouth once daily. - albuterol HFA (PROVENTIL HFA, VENTOLIN HFA) 90 mcg/actuation inhaler Inhale 2 Puffs as instructed every 4 hours as needed for wheezing/shortness of breath. Problem List As Of Date 11/09/2024 Noted Resolved Depression, major, recurrent, moderate (HCC) [F*07/11/2024 Generalized anxiety disorder [F41.1] 07/11/2024 Bipolar 1 disorder, mixed (HCC) [F31.60] 08/03/2024 Asthma [J45.909] Obesity during [O99.210] 08/03/2024 History of delivery [Z98.891] 08/03/2024 Anxiety [F41.9] 08/03/2024 History of gestational diabetes mellitus (GDM) *08/03/2024 11/06/2024 Elevated hemoglobin A1c [R73.09] 09/15/2024 11/06/2024 Anemia complicating , second trimester*09/15/2024 Elevated glucose tolerance test [R73.09] 09/18/2024 Pre-existing diabetes mellitus in in *09/18/2024 Encounter Status:Closed by MELISSA CHAVEZ on 11/09/24 Normal [facility] Examination level ultrasound on 11-06-2024 Indication Detailed anatomic survey Maternal obesity, BMI >30, Diabetes mellitus Impression REMOTE READ The patient is referred for a detailed anatomic survey. - Single, live, intrauterine . - biometry is consistent with the established gestational age. - No malformations were visualized on a complete detailed anatomic survey. - The amniotic fluid volume is normal amount. - The placenta is posterior, fundal. - The Transabdominal cervical length measures 36.4 mm with no evidence of funneling or other dynamic changes. - Not all structural malformations can be detected by ultrasound examination. Recommendations Additional follow-up as clinically indicated. Maternal Assessment Height 150 cm Height (ft) 4 ft Height (in) 11 in Physical Exam Initial weight (lb) 172 lb Initial BMI 34.74 kg/m Maternal assessment other: 2 Para 1 Method Transabdominal ultrasound examination. View: Adequate visualization Scott . Number of fetuses: 1 Dating LMP on: 06/10/2024 GA by LMP 21 w + 2 d DEEP by LMP: 03/17/2025 GA by prior assessment 21 w + 2 d DEEP by prior assessment: 03/17/2025 Ultrasound examination on: 11/06/2024 GA by U/S based upon: AC, BPD, Femur, HC GA by U/S 20 w + 5 d DEEP by U/S: 03/21/2025 Assigned: based on stated DEEP, selected on 11/06/2024 Assigned GA 21 w + 2 d Assigned DEEP: 03/17/2025 General Evaluation Cardiac activity present. FHR 146 bpm. movements: present. Presentation: cephalic Placenta: Placental site: posterior, fundal Umbilical cord: Cord vessels: 3 vessel cord Amniotic fluid: Amount of AF: normal amount. MVP 6.8 cm Growth Overview Exam date GA BPD (mm) HC (mm) AC (mm) FL (mm) HL (mm) EFW (g) 10/09/2024 17w 2d 36.5 44% 138.1 40% 115.9 51% 21 18% 21.9 35% 171 20% 11/06/2024 21w 2d 48.4 23% 182.2 30% 164.4 50% 33 29% 33.3 46% 385 26% Biometry Standard BPD 48.4 mm 20w 4d 23% Hadlock OFD 64.7 mm 20w 4d 38% Nicolaides HC 182.2 mm 20w 4d 30% Norma Cerebellum tr 21.8 mm 20w 4d 37% Hill Nuchal fold 4.3 mm AC 164.4 mm 21w 3d 50% Hadlock Femur 33.0 mm 20w 3d 29% Norma Humerus 33.3 mm 21w 2d 46% Norma EFW 385 g 20w 6d 26% Hadlock EFW (lb) 0 lb EFW (oz) 14 oz EFW by: Hadlock (HC-AC-FL) Extended Gravel Wheeler 5.9 mm CM 6.1 mm 74% Nicolaides Extremities / Bony Struc FL / HC 0.18 Other Structures FHR 146 bpm Anatomy Cranium: normal Lateral ventricles: normal Choroid plexus: normal Midline falx: normal Cavum septi pellucidi: normal Cerebellum: normal Cisterna magna: normal Head / Neck Vermis: normal Neck: normal Nuchal fold: normal Lips: normal Profile: normal Nose: normal Face Maxilla: normal Mandible: normal Orbits: normal Lens: normal 4-chamber view: normal RVOT view: normal LVOT view: normal 3-vessel view: normal [id number] view: normal Heart / Thorax Situs: situs solitus (normal) Aortic arch view: normal SVC: normal IVC: normal Cardiac axis: normal Rt lung: normal Lt lung: normal Diaphragm: normal Cord insertion: normal Stomach: normal Kidneys: normal Bladder: normal Genitals: normal Abdomen Abdom. wall: normal Cervical spine: normal Thoracic spine: normal Lumbar spine: normal Sacral spine: normal Arms: normal Legs: normal Rt upper arm: normal Rt forearm: normal Rt hand: normal Rt fingers: normal Lt upper arm: normal Lt forearm: normal Lt hand: normal Lt fingers: normal Rt upper leg: normal Rt lower leg: normal Rt foot: normal Lt upper leg: normal Lt lower leg: normal Lt foot: normal sex: male Wants to know sex: yes Maternal Structures Uterus / Cervix Uterus: Visualized Cervix: Visualized Approach: Transabdominal Cervical length 36.4 mm Other: Patient declined transvaginal ultrasound for cervical length. Ovaries / Tubes / Adnexa Rt ovary: Visualized Lt ovary: Not visualized Performed By: Edel Trinh RDMS, RVT Read By: Silvana Johnson M.D. MATERNAL MEDICINE [facility] Radiology Study observation (narrative) [facility] Yoly 11-01-2024 CNPN Telephone (ENDOAL) VAL RUIZ ([id number]) 2000 F Date Time Provider Department 11/01/24 LALITO ROCHA ENDOAL During your visit today, we recorded the following information about you: Lalito Rocha, 11/01/2024 10:02 AM Signed Reviewed BG data- responded as follows: Good morning- I reviewed your BG data- are you doing ok with the insulin so far? Assuming so- I would recommend that you do the following: increase NPH to 22 units at bedtime continue Humalog 5 units prior to breakfast, increase Humalog to 8 units prior to lunch and 8 units prior to dinner. I would recommend that you take an additional 5 units of Humalog with any higher carb meals (means if you eat something that you think will increase your blood sugar- take the additional Humalog with that meal. Arleth with * if/when you take the extra insulin so I can see if it is working or not. Will review again next week- thanks! KB Allergies As of Date: 11/01/2024 Noted Allergy Reaction CEPHALEXIN 05/01/2022 2 - Rash Date Reviewed: 10/20/2024 Reviewed by: Shae Harding MA - Fully Assessed Reason for Visit: Blood Sugar Reading [1269] Order(s):insulin lispro (HUMALOG KWIKPEN) 100 unit/mL5-8-8 units prior to meals + scale.Disp: 5 EachRfl: 11 insulin NPH (HUMULIN N NPH INSULIN KWIKPEN) 100 unit/mL (3 mL) injection pen22 units at bedtimeDisp: 5 EachRfl: 11 Prescriptions as of 11/01/2024 - insulin lispro (HUMALOG KWIKPEN) 100 unit/mL 5-8-8 units prior to meals + scale. - insulin NPH (HUMULIN N NPH INSULIN KWIKPEN) 100 unit/mL (3 mL) injection pen 22 units at bedtime - Insulin Montgomery, Disposable, (PEN NEEDLE) 32 gauge x 5/32 Use to inject insulin up to 4 times per day. - Blood-Glucose Meter Use as directed to check glucose levels up to seven times daily. - blood sugar diagnostic test strip Use as directed to check glucose levels up to seven times daily. - Lancets Use as directed to check glucose levels up to seven times daily. - alcohol swabs (ALCOHOL PREP PADS) Use as directed to check glucose levels up to seven times daily. - diphenhydramine HCl (BENADRYL ALLERGY ORAL) Take by mouth daily at bedtime. - fluticasone (FLONASE) 50 mcg/actuation nasal spray Use 2 Sprays in each nostril once daily. Rinse mouth after use. - aspirin, enteric coated (ECOTRIN LOW STRENGTH) 81 mg EC tablet Take 1 tablet by mouth once daily. - citalopram (CELEXA) 20 mg tablet Take 20 mg by mouth once daily. - no115/iron/folic acid ( 19 ORAL) Take 1 tablet by mouth once daily. - albuterol HFA (PROVENTIL HFA, VENTOLIN HFA) 90 mcg/actuation inhaler Inhale 2 Puffs as instructed every 4 hours as needed for wheezing/shortness of breath. - QUEtiapine (SEROQUEL) 25 mg tablet Problem List As Of Date 11/01/2024 Noted Resolved Depression, major, recurrent, moderate (HCC) [F*07/11/2024 Generalized anxiety disorder [F41.1] 07/11/2024 Bipolar 1 disorder, mixed (HCC) [F31.60] 08/03/2024 Asthma [J45.909] Obesity during [O99.210] 08/03/2024 History of delivery [Z98.891] 08/03/2024 Anxiety [F41.9] 08/03/2024 History of gestational diabetes mellitus (GDM) *08/03/2024 Elevated hemoglobin A1c [R73.09] 09/15/2024 Anemia complicating , second trimester*09/15/2024 Elevated glucose tolerance test [R73.09] 09/18/2024 Pre-existing diabetes mellitus in in *09/18/2024 Prescriptions ordered this encounter Disp Refills Start End INSULIN LISPRO (U-100) 100 UNIT/ML S* 5 Ea* 11 11/01/2024 Class: Med Update Si-8-8 units prior to meals + scale. HUMULIN N NPH U-100 INSULIN KWIKPEN * 5 Ea* 11 11/01/2024 Class: Med Update Si units at bedtime Medications Discontinued During This Encounter Prescriptions - insulin lispro (HUMALOG KWIKPEN) 100 unit/mL (Discontinued) 5 units prior to meals - insulin NPH (HUMULIN N NPH INSULIN KWIKPEN) 100 unit/mL (3 mL) injection pen (Discontinued) 15 units at bedtime Encounter Status:Closed by [facility] VAL RUIZ ([id number]) 2000 F Date Time Provider Department 10/20/24 9:15 AM ARLETH GILLESPIE [facility] During your visit today, we recorded the following information about you: Temperature Pulse Respiration Blood pressure 97.5 degrees 82/minute 16/minute 122/70 Weight 80.2 kg Arleth Gillespie PA-C 10/20/2024 9:35 AM Signed This note was created using RightSignatureriter. Subjective Valdenise Ruiz is a 24 year old female. Patient is a 24-year-old female who complains of worsening congestion, sinus pressure, ear fullness and sore throat that she has been experiencing for the past 2 weeks. Patient reports no fever, chills or myalgia, although the patient states that she may have developed a low-grade fever this morning. Patient's temperature upon arrival today is 97.5 degrees. Patient has no history of asthma or COPD and does not smoke. Patient is currently 19 weeks gestation. Sinus Problem Associated symptoms include congestion, coughing and a sore throat. Review of Systems HENT: Positive for congestion, postnasal drip, sinus pressure, sinus pain and sore throat. Respiratory: Positive for cough. All other systems reviewed and are negative. Objective BP 122/70 Pulse 82 Temp 36.4 ?C (97.5 ?F) Resp 16 Wt 80.2 kg (176 lb 12.9 oz) LMP 06/10/2024 SpO2 98% BMI 35.71 kg/m? Physical Exam Vitals and nursing note reviewed. Constitutional: Appearance: Normal appearance. She is normal weight. HENT: Head: Normocephalic and atraumatic. Right Ear: Tympanic membrane, ear canal and external ear normal. Left Ear: Tympanic membrane, ear canal and external ear normal. Nose: Nose normal. Mouth/Throat: Mouth: Mucous membranes are moist. Pharynx: Oropharynx is clear. Eyes: Extraocular Movements: Extraocular movements intact. Conjunctiva/sclera: Conjunctivae normal. Pupils: Pupils are equal, round, and reactive to light. Cardiovascular: Rate and Rhythm: Normal rate and regular rhythm. Pulses: Normal pulses. Heart sounds: Normal heart sounds. Pulmonary: Effort: Pulmonary effort is normal. Breath sounds: Normal breath sounds. Musculoskeletal: Cervical back: Normal range of motion and neck supple. Skin: General: Skin is warm and dry. Capillary Refill: Capillary refill takes less than 2 seconds. Neurological: General: No focal deficit present. Mental Status: She is alert and oriented to person, place, and time. Psychiatric: Mood and Affect: Mood normal. Behavior: Behavior normal. Thought Content: Thought content normal. Judgment: Judgment normal. Assessment and Plan Physical exam findings as noted above. Patient was provided with a prescription for amoxicillin 875 mg and supportive care instructions were discussed. Patient verbalizes good understanding of same. CLINICAL IMPRESSION: Acute Sinusitis ASSESSMENT/PLAN: 1. Acute non-recurrent sinusitis, unspecified location - ICD9: 461.9, ICD10: J01.90 - AMOXICILLIN 875 MG TABLET Arleth JENI Gillespie Allergies As of Date: 10/20/2024 Noted Allergy Reaction CEPHALEXIN 05/01/2022 2 - Rash Date Reviewed: 10/20/2024 Reviewed by: Shae Harding MA - Fully Assessed Reason for Visit: Sinus Problem [99] Cmt: sinus pressure, drainage, cough and headache x 9 days Primary Visit Diagnosis:Acute non-recurrent sinusitis, unspecified location [J01.90] Order(s):amoxicillin (AMOXIL) 875 mg tabletTake 1 tablet by mouth two times a day for 10 days.Disp: 20 tabletRfl: 0 Prescriptions as of 10/20/2024 - amoxicillin (AMOXIL) 875 mg tablet Take 1 tablet by mouth two times a day for 10 days. - Blood-Glucose Meter Use as directed to check glucose levels up to seven times daily. - blood sugar diagnostic test strip Use as directed to check glucose levels up to seven times daily. - Lancets Use as directed to check glucose levels up to seven times daily. - alcohol swabs (ALCOHOL PREP PADS) Use as directed to check glucose levels up to seven times daily. - diphenhydramine HCl (BENADRYL ALLERGY ORAL) Take by mouth daily at bedtime. - fluticasone (FLONASE) 50 mcg/actuation nasal spray Use 2 Sprays in each nostril once daily. Rinse mouth after use. - aspirin, enteric coated (ECOTRIN LOW STRENGTH) 81 mg EC tablet Take 1 tablet by mouth once daily. - citalopram (CELEXA) 20 mg tablet Take 20 mg by mouth once daily. - no115/iron/folic acid ( 19 ORAL) Take 1 tablet by mouth once daily. - albuterol HFA (PROVENTIL HFA, VENTOLIN HFA) 90 mcg/actuation inhaler Inhale 2 Puffs as instructed every 4 hours as needed for wheezing/shortness of breath. - QUEtiapine (SEROQUEL) 25 mg tablet Problem List As Of Date 10/20/2024 Noted Resolved Depression, major, recurrent, moderate (HCC) [F*07/11/2024 Generalized anxiety disorder [F41.1] 07/11/2024 Bipolar 1 disorder, mixed (HCC) [F31.60] 08/03/2024 A (more content not included)... Normal [facility] Yoly 10-20-2024 ROSA Telephone (ENDOAL) VAL RUIZ ([id number]) 2000 F Date Time Provider Department 10/20/24 LALITO ROCHA During your visit today, we recorded the following information about you: Jacinta Oscar 10/20/2024 2:23 PM Signed Patient referred by Dr. Augilera for GDM, patient had been scheduled with Dr. Alonzo , patient did not realize that was the wrong physician. Rescheduled to see Dr. Rocha 10/24/2024 @ 2:20 pm. Patient has been logging BG , patient had been logging at 1 hour post meal, advised patient to make sure she noted on logs when it was one hour and then when she started testing 2 hour post meal. Patient sent logs and Dr. Rocha email. Allergies As of Date: 10/20/2024 Noted Allergy Reaction CEPHALEXIN 05/01/2022 2 - Rash Date Reviewed: 10/20/2024 Reviewed by: Shae Harding MA - Fully Assessed Prescriptions as of 10/20/2024 - amoxicillin (AMOXIL) 875 mg tablet Take 1 tablet by mouth two times a day for 10 days. - Blood-Glucose Meter Use as directed to check glucose levels up to seven times daily. - blood sugar diagnostic test strip Use as directed to check glucose levels up to seven times daily. - Lancets Use as directed to check glucose levels up to seven times daily. - alcohol swabs (ALCOHOL PREP PADS) Use as directed to check glucose levels up to seven times daily. - diphenhydramine HCl (BENADRYL ALLERGY ORAL) Take by mouth daily at bedtime. - fluticasone (FLONASE) 50 mcg/actuation nasal spray Use 2 Sprays in each nostril once daily. Rinse mouth after use. - aspirin, enteric coated (ECOTRIN LOW STRENGTH) 81 mg EC tablet Take 1 tablet by mouth once daily. - citalopram (CELEXA) 20 mg tablet Take 20 mg by mouth once daily. - no115/iron/folic acid ( 19 ORAL) Take 1 tablet by mouth once daily. - albuterol HFA (PROVENTIL HFA, VENTOLIN HFA) 90 mcg/actuation inhaler Inhale 2 Puffs as instructed every 4 hours as needed for wheezing/shortness of breath. - QUEtiapine (SEROQUEL) 25 mg tablet Problem List As Of Date 10/20/2024 Noted Resolved Depression, major, recurrent, moderate (HCC) [F*07/11/2024 Generalized anxiety disorder [F41.1] 07/11/2024 Bipolar 1 disorder, mixed (HCC) [F31.60] 08/03/2024 Asthma [J45.909] Obesity during [O99.210] 08/03/2024 Encounter for supervision of high risk pregnanc*08/03/2024 History of delivery [Z98.891] 08/03/2024 Anxiety [F41.9] 08/03/2024 History of gestational diabetes mellitus (GDM) *08/03/2024 Elevated hemoglobin A1c [R73.09] 09/15/2024 Anemia complicating , second trimester*09/15/2024 Elevated glucose tolerance test [R73.09] 09/18/2024 Pre-existing diabetes mellitus in in *09/18/2024 Encounter Status:Closed by JACINTA OSCAR on 10/20/24 [facility] 10-15-2024 ROSA Telephone (ENDOAL) VAL RUIZ ([id number]) 2000 F Date Time Provider Department 10/15/24 LALITO ROCHA During your visit today, we recorded the following information about you: Jacinta Oscar 10/15/2024 1:43 PM Signed Patient returned call to the office after multiple attempts to reach her. Patients OB reached out to Dr. Rocha to see patient. Patient is scheduled with Dr. Alonzo on 11/03/2024 so she did not realize this was not the appointment that I was referring to when I left the messages. Patient would like to see Dr. Rocha, would prefer virtual if she could, patient did say that if it is necessary she would come to the office. Patient is recording her blood sugars, patient had GDM in previous . Will send logs with instructions to email weekly to [email or web address] Patient advised that she signed a CARMENZA for her records to be sent to [facility]. First available appointment is 10/29/2024 Please advise for scheduling. Thank you Lalito Rocha, DO 10/17/2024 9:21 AM Signed Please advise pt to start checking her BG fasting and 2 hour post meal and forward me these numbers next week. She should be scheduled next available f/u- Thanks Jacinta Mantilla 10/19/2024 11:22 AM Signed Left voicemail for patient to call [phone] Rocha. Jacinta Oscar 10/20/2024 2:32 PM Signed Spoke with patient, scheduled 10/24/2024 @ 2:20 pm (virtual appointment) Allergies As of Date: 10/15/2024 Noted Allergy Reaction CEPHALEXIN 05/01/2022 2 - Rash Date Reviewed: 10/09/2024 Reviewed by: Melissa Aguilera MD - Fully Assessed Reason for Visit: Appointment [186] Prescriptions as of 10/20/2024 - amoxicillin (AMOXIL) 875 mg tablet Take 1 tablet by mouth two times a day for 10 days. - Blood-Glucose Meter Use as directed to check glucose levels up to seven times daily. - blood sugar diagnostic test strip Use as directed to check glucose levels up to seven times daily. - Lancets Use as directed to check glucose levels up to seven times daily. - alcohol swabs (ALCOHOL PREP PADS) Use as directed to check glucose levels up to seven times daily. - diphenhydramine HCl (BENADRYL ALLERGY ORAL) Take by mouth daily at bedtime. - fluticasone (FLONASE) 50 mcg/actuation nasal spray Use 2 Sprays in each nostril once daily. Rinse mouth after use. - aspirin, enteric coated (ECOTRIN LOW STRENGTH) 81 mg EC tablet Take 1 tablet by mouth once daily. - citalopram (CELEXA) 20 mg tablet Take 20 mg by mouth once daily. - no115/iron/folic acid ( 19 ORAL) Take 1 tablet by mouth once daily. - albuterol HFA (PROVENTIL HFA, VENTOLIN HFA) 90 mcg/actuation inhaler Inhale 2 Puffs as instructed every 4 hours as needed for wheezing/shortness of breath. - QUEtiapine (SEROQUEL) 25 mg tablet Problem List As Of Date 10/15/2024 Noted Resolved Depression, major, recurrent, moderate (HCC) [F*07/11/2024 Generalized anxiety disorder [F41.1] 07/11/2024 Bipolar 1 disorder, mixed (HCC) [F31.60] 08/03/2024 Asthma [J45.909] Obesity during [O99.210] 08/03/2024 Encounter for supervision of high risk pregnanc*08/03/2024 History of delivery [Z98.891] 08/03/2024 Anxiety [F41.9] 08/03/2024 History of gestational diabetes mellitus (GDM) *08/03/2024 Elevated hemoglobin A1c [R73.09] 09/15/2024 Anemia complicating , second trimester*09/15/2024 Elevated glucose tolerance test [R73.09] 09/18/2024 Pre-existing diabetes mellitus in in *09/18/2024 Encounter Status:Closed by JACINTA OSACR on 10/16/24 [facility] 10-13-2024 JASE Telephone (ENDOAL) VAL RUIZ ([id number]) 2000 F Date Time Provider Department 10/13/24 LALITO ROCHA During your visit today, we recorded the following information about you: Jacinta Oscar 10/13/2024 10:07 AM Signed Left voicemail for patient to call [phone] (direct line) to Dr. Rocha's office to schedule with Dr. Rocha. Allergies As of Date: 10/13/2024 Noted Allergy Reaction CEPHALEXIN 05/01/2022 2 - Rash Date Reviewed: 10/09/2024 Reviewed by: Melissa Aguilera MD - Fully Assessed Prescriptions as of 10/13/2024 - Blood-Glucose Meter Use as directed to check glucose levels up to seven times daily. - blood sugar diagnostic test strip Use as directed to check glucose levels up to seven times daily. - Lancets Use as directed to check glucose levels up to seven times daily. - alcohol swabs (ALCOHOL PREP PADS) Use as directed to check glucose levels up to seven times daily. - diphenhydramine HCl (BENADRYL ALLERGY ORAL) Take by mouth daily at bedtime. - fluticasone (FLONASE) 50 mcg/actuation nasal spray Use 2 Sprays in each nostril once daily. Rinse mouth after use. - aspirin, enteric coated (ECOTRIN LOW STRENGTH) 81 mg EC tablet Take 1 tablet by mouth once daily. - citalopram (CELEXA) 20 mg tablet Take 20 mg by mouth once daily. - no115/iron/folic acid ( 19 ORAL) Take 1 tablet by mouth once daily. - albuterol HFA (PROVENTIL HFA, VENTOLIN HFA) 90 mcg/actuation inhaler Inhale 2 Puffs as instructed every 4 hours as needed for wheezing/shortness of breath. - QUEtiapine (SEROQUEL) 25 mg tablet Problem List As Of Date 10/13/2024 Noted Resolved Depression, major, recurrent, moderate (HCC) [F*07/11/2024 Generalized anxiety disorder [F41.1] 07/11/2024 Bipolar 1 disorder, mixed (HCC) [F31.60] 08/03/2024 Asthma [J45.909] Obesity during [O99.210] 08/03/2024 Encounter for supervision of high risk pregnanc*08/03/2024 History of delivery [Z98.891] 08/03/2024 Anxiety [F41.9] 08/03/2024 History of gestational diabetes mellitus (GDM) *08/03/2024 Elevated hemoglobin A1c [R73.09] 09/15/2024 Anemia complicating , second trimester*09/15/2024 Elevated glucose tolerance test [R73.09] 09/18/2024 Pre-existing diabetes mellitus in in *09/18/2024 Encounter Status:Closed by JACINTA OSCAR on 10/13/24 Normal [facility] CNPNon 10-12-2024 CNPN Telephone (ENDOAL) VAL RUIZ ([id number]) 2000 F Date Time Provider Department 10/12/24 LALITO ROCHA ENDOAL During your visit today, we recorded the following information about you: Jacinta Oscar 10/12/2024 11:15 AM Signed Left voicemail for patient to call [phone] to schedule appointment [address] Dr. Rocha. Allergies As of Date: 10/12/2024 Noted Allergy Reaction CEPHALEXIN 05/01/2022 2 - Rash Date Reviewed: 10/09/2024 Reviewed by: Melissa Aguilera MD - Fully Assessed Prescriptions as of 10/12/2024 - Blood-Glucose Meter Use as directed to check glucose levels up to seven times daily. - blood sugar diagnostic test strip Use as directed to check glucose levels up to seven times daily. - Lancets Use as directed to check glucose levels up to seven times daily. - alcohol swabs (ALCOHOL PREP PADS) Use as directed to check glucose levels up to seven times daily. - diphenhydramine HCl (BENADRYL ALLERGY ORAL) Take by mouth daily at bedtime. - fluticasone (FLONASE) 50 mcg/actuation nasal spray Use 2 Sprays in each nostril once daily. Rinse mouth after use. - aspirin, enteric coated (ECOTRIN LOW STRENGTH) 81 mg EC tablet Take 1 tablet by mouth once daily. - citalopram (CELEXA) 20 mg tablet Take 20 mg by mouth once daily. - no115/iron/folic acid ( 19 ORAL) Take 1 tablet by mouth once daily. - albuterol HFA (PROVENTIL HFA, VENTOLIN HFA) 90 mcg/actuation inhaler Inhale 2 Puffs as instructed every 4 hours as needed for wheezing/shortness of breath. - QUEtiapine (SEROQUEL) 25 mg tablet Problem List As Of Date 10/12/2024 Noted Resolved Depression, major, recurrent, moderate (HCC) [F*07/11/2024 Generalized anxiety disorder [F41.1] 07/11/2024 Bipolar 1 disorder, mixed (HCC) [F31.60] 08/03/2024 Asthma [J45.909] Obesity during [O99.210] 08/03/2024 Encounter for supervision of high risk pregnanc*08/03/2024 History of delivery [Z98.891] 08/03/2024 Anxiety [F41.9] 08/03/2024 History of gestational diabetes mellitus (GDM) *08/03/2024 Elevated hemoglobin A1c [R73.09] 09/15/2024 Anemia complicating , second trimester*09/15/2024 Elevated glucose tolerance test [R73.09] 09/18/2024 Pre-existing diabetes mellitus in in *09/18/2024 Encounter Status:Closed by JACINTA OSCAR on 10/12/24 Normal [facility] Examination level ultrasound on 10-09-2024 Indication Early anatomic survey Maternal obesity, BMI >30, Gestational diabetes mellitus before 24 weeks Impression REMOTE READ The patient is referred for an early anatomic survey because of identified risk factors. - Single, live, intrauterine . - biometry is consistent with the established gestational age. - No malformations were visualized on a complete early anatomic assessment. - The amniotic fluid volume is normal amount. - The placenta is posterior. - A detailed anatomic survey at 20 weeks is indicated secondary to increased risk. - Not all structural malformations can be detected by ultrasound examination. Recommendations Return in around 4 weeks for detailed anatomic survey Maternal Assessment Height 150 cm Height (ft) 4 ft Height (in) 11 in Physical Exam Initial weight (lb) 172 lb Initial BMI 34.74 kg/m Maternal assessment other: 2 Para 1 Method Transabdominal ultrasound examination. View: Suboptimal view: limited by early gestational age Scott . Number of fetuses: 1 Dating LMP on: 06/10/2024 GA by LMP 17 w + 2 d DEEP by LMP: 03/17/2025 GA by prior assessment 17 w + 2 d DEEP by prior assessment: 03/17/2025 Ultrasound examination on: 10/09/2024 GA by U/S based upon: AC, BPD, Femur, HC GA by U/S 17 w + 0 d DEEP by U/S: 03/19/2025 Assigned: based on stated DEEP, selected on 10/09/2024 Assigned GA 17 w + 2 d Assigned DEEP: 03/17/2025 General Evaluation Cardiac activity present. FHR 149 bpm. movements: present. Presentation: transverse head left Placenta: Placental site: posterior Umbilical cord: Cord vessels: 3 vessel cord Amniotic fluid: Amount of AF: normal amount Biometry Standard BPD 36.5 mm 17w 1d 44% Hadlock OFD 49.3 mm 16w 6d 52% Nicolaides HC 138.1 mm 17w 0d 40% Norma AC 115.9 mm 17w 2d 51% Hadlock Femur 21.0 mm 16w 2d 18% Norma Humerus 21.9 mm 16w 5d 35% Norma EFW 171 g 16w 5d 20% Hadlock EFW (lb) 0 lb EFW (oz) 6 oz EFW by: Hadlock (HC-AC-FL) Extended Gravel Wheeler 6.2 mm Extremities / Bony Struc FL / HC 0.15 2% Hadlock Other Structures FHR 149 bpm Anatomy Cranium: normal Lateral ventricles: normal Choroid plexus: normal Midline falx: normal Cerebellum: normal Cisterna magna: normal Lips: normal 4-chamber view: normal RVOT view: normal LVOT view: normal 3-vessel view: normal 7-sffreg-zahizgi view: normal Heart / Thorax Aortic arch view: normal Ductal arch view: normal SVC: normal IVC: normal Diaphragm: normal Cord insertion: normal Stomach: normal Kidneys: normal Bladder: normal Cervical spine: normal Thoracic spine: normal Lumbar spine: normal Sacral spine: normal Arms: normal Legs: normal Rt upper arm: normal Rt forearm: normal Rt hand: normal Lt upper arm: normal Lt forearm: normal Lt hand: normal Rt upper leg: normal Rt lower leg: normal Rt foot: normal Lt upper leg: normal Lt lower leg: normal Lt foot: normal sex: male Wants to know sex: yes Maternal Structures Uterus / Cervix Uterus: Visualized Cervix: Visualized Approach: Transabdominal Cervical length 35.6 mm Ovaries / Tubes / Adnexa Rt ovary: Visualized Lt ovary: Not visualized Performed By: Edel Trinh, NADER, RVT Read By: Ly Nugent M.D. MATERNAL MEDICINE [facility] Radiology Study observation (narrative) [facility] URINE OB DIP B/Oon Glucose Ql (U) Negative Neg mg/dL [facility] Interpretation and review of laboratory results Normal [facility] Protein.monoclon al (U) [Mass/Vol] Negative Neg mg/dL [facility] Abdomen/Pelvis WITH Contrast on 10-07-2024 Abdomen/Pelvis WITH Contrast [facility] Imaging Services [address] [place] [address] [id number] Abdomen/Pelvis WITH Contrast MR#: [id number] Acct: [id number] Name: VAL RUIZ Rep #: [id number] : 2000 F 24 From: Rajiv Gilbert PCP: Care Physician,No Primary Status: REG ER Study: Abdomen/Pelvis WITH Contrast Date of Exam: Exam# [id number] Ordering Dr: Jay Alvarez MD -[id number] STUDY: CT ABDOMEN AND PELVIS WITH CONTRAST REASON FOR EXAM: Female, 24 years old. RLQ pain with -- 17 weeks gestation RADIATION DOSAGE (If Supplied By Facility): CTDIvol = ( 19.79 ) mGy, DLP = ( 969.22 ) mGycm TECHNIQUE: IV 100mL Isovue-300 was administered. Transaxial images were obtained from the dome of the diaphragm to the symphysis pubis Multiplanar coronal and sagittal images were reformatted. The protocol utilizes one or more of the following dose reduction techniques: automated exposure control, adjustment of mA and/or kV according to patient size,and/or use of iterative reconstruction technique. COMPARISON: No relevant prior comparison study available FINDINGS: The visualized lung bases are unremarkable. The visualized portions of the heart are within normal limits. Normal liver. Normal gallbladder and extrahepatic biliary system. Normal spleen. Normal pancreas. Normal bilateral adrenal glands. Normal visualized stomach. Normal small intestine. No evidence of acute diverticulitis. The appendix is visualized and appears normal. Normal abdominal aorta. No retroperitoneal adenopathy. Normal right kidney. Normal left kidney. Normal urinary bladder. Intrauterine is seen better evaluated by ultrasound. Normal abdominal wall. Bilateral spondylolysis at L5 without evidence of spondylolisthesis. Depression of the superior endplate of L4 could be due to Schmorl''s node. CT/Abdomen/Pelvis WITH Contrast IMPRESSION: 1. No evidence of acute appendicitis or focal acute inflammatory process. 2. Intrauterine better evaluated by ultrasound. 3. Bilateral spondylolysis at L5. Electronically Signed: Rajiv Harp MD at 15:35 EST , CC: Dr. Jay Alvarez MD; No Primary Care Physician Pearl Maker: Signed Normal [facility] CBC W/Diff, Automatedon 09-23 Absolute Lymph 1.38 X10 3/uL Normal 0.83-4.51 [facility] 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: Performed By: #### L501.2450, L100.0100, L500.4050 #### [facility] [address] [place], [place], [id number] Absolute Neut 5.1 X10 3/uL Normal 2.0-7.7 [facility] 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: Performed By: #### L501.2450, L100.0100, L500.4050 #### [facility] [address] [place], [address] Basophils/100 WBC (Bld) 0.4 % Normal 0-1 [facility] 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: Performed By: #### L501.2450, L100.0100, L500.4050 #### [facility] [address] [place], [address] Eosinophils/100 WBC (Bld) 2.8 % Normal 0-5 [facility] 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: Performed By: #### L501.2450, L100.0100, L500.4050 #### [facility] [address] [place], [address] Erythrocyte distribution width (RBC) [Ratio] 15.7 % High 11.6-14.6 [facility] 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: Performed By: #### L501.2450, L100.0100, L500.4050 #### [facility] [address] [place], [address] Hematocrit (Bld) [Volume fraction] 31.9 % Low 37-47 [facility] 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: Performed By: #### L501.2450, L100.0100, L500.4050 #### [facility] [address] [place], [address] Hemoglobin (Bld) [Mass/Vol] 10.0 g/dL Low 12.0-15.0 [facility] 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: Performed By: #### L501.2450, L100.0100, L500.4050 #### [facility] [address] [place], [address] IG% 0.300 Normal 0.0-0.9 [facility] 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: Result Comment: IG% - Immature Granulocy meryl (promyelocytes, myelocytes and metamyelocytes) > 1% indicates that a LEFT SHIFT is Present. Performed By: #### L 501.2450, L100.0100, L500.4050 #### [facility] [address] [place], [address] Lymphocytes/100 WBC (Bld) 19.6 % Normal 19-41 [facility] 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: Performed By: #### L501.2450, L100.0100, L500.4050 #### [facility] [address] [place], [address] MCH (RBC) [Entitic mass] 28.2 pg Normal 27.0-32.0 [facility] 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: Performed By: #### L501.2450, L100.0100, L500.4050 #### [facility] [address] [place], [address] MCHC (RBC) [Mass/Vol] 31.3 g/dL Low 32-36 [facility] 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: Performed By: #### L501.2450, L100.0100, L500.4050 #### [facility] [address] [place], [address] MCV (RBC) [Entitic vol] 90.1 fL Normal 81-99 [facility] 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: Performed By: #### L501.2450, L100.0100, L500.4050 #### [facility] [address] [place], [address] Monocytes/100 WBC (Bld) 4.7 % Normal 0-10 [facility] 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: Performed By: #### L501.2450, L100.0100, L500.4050 #### [facility] [address] [place], [address] Neutrophils/100 WBC (Bld) 72.2 % High 47-70 [facility] 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: Performed By: #### L501.2450, L100.0100, L500.4050 #### [facility] [address] [place], [address] Nucleated RBC (Bld) [#/Vol] 0 10*3/uL Normal 0-5 [facility] 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: Performed By: #### L501.2450, L100.0100, L500.4050 #### [facility] [address] [place], [address] Platelet mean volume (Bld) [Entitic vol] 11.2 fL Normal 6.2-12.0 [facility] 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: Performed By: #### L501.2450, L100.0100, L500.4050 #### [facility] [address] [place], [address] Platelets (Bld) [#/Vol] 277 10*3/uL Normal 150-450 [facility] 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: Performed By: #### L501.2450, L100.0100, L500.4050 #### [facility] [address] [place], [address] RBC (Bld) [#/Vol] 3.54 10*6/uL Low 4.2-5.4 [facility] 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: Performed By: #### L501.2450, L100.0100, L500.4050 #### [facility] [address] [place], [address] RDW SD 51.7 fl High 35.1-43.9 [facility] 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: Performed By: #### L501.2450, L100.0100, L500.4050 #### [facility] [address] [place], [address] WBC (Bld) [#/Vol] 7.0 10*3/uL Normal 4.4-11.0 [facility] 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: Performed By: #### L501.2450, L100.0100, L500.4050 #### [facility] [address] [place], [address] Comprehensive Metabolic Prof ilon 10-07-2024 Albumin [Mass/Vol] 2.7 g/dL Low 3.2-5.0 [facility] 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: Performed By: #### L501.2450, L100.0100, L500.4050 #### [facility] [address] [place], [address] Albumin/Globulin [Mass ratio] 0.5 {ratio} Low 0.9-2.4 [facility] 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: Performed By: #### L501.2450, L100.0100, L500.4050 #### [facility] [address] [place], [address] ALK P 68 U/L Normal 45-117 [facility] 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: Performed By: #### L501.2450, L100.0100, L500.4050 #### [facility] [address] [place], [address] ALT [Catalytic activity/Vol] 10 U/L Low 13-56 [facility] 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: Performed By: #### L501.2450, L100.0100, L500.4050 #### [facility] [address] [place], [address] AST [Catalytic activity/Vol] 11 U/L Low 15-37 [facility] 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: Performed By: #### L501.2450, L100.0100, L500.4050 #### [facility] [address] [place], [address] Bilirubin [Mass/Vol] 0.30 mg/dL Normal 0.20-1.00 [facility] 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: Result Comment: For patients on eltrombo pag therapy, use of Dimension [place] TBIL is not recommended. Performed By: #### L 501.2450, L100.0100, L500.4050 #### [facility] [address] [place], [address] BUN/CRE 10.2 RATIO Normal 10-20 [facility] 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: Performed By: #### L501.2450, L100.0100, L500.4050 #### [facility] [address] [place], [address] CA,Total 9.0 mg/dL Normal 8.5-10.1 [facility] 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: Performed By: #### L501.2450, L100.0100, L500.4050 #### [facility] [address] [place], [address] Chloride [Moles/Vol] 106 mmol/L Normal 98-107 [facility] 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: Performed By: #### L501.2450, L100.0100, L500.4050 #### [facility] [address] [place], [address] CO2 [Moles/Vol] 22.0 mmol/L Normal 21.0-32.0 [facility] 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: Performed By: #### L501.2450, L100.0100, L500.4050 #### [facility] [address] [place], [address] Creatinine [Mass/Vol] 0.59 mg/dL Normal 0.55-1.02 [facility] 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: Result Comment: The validity of the calc ulated GFR GFRAA in patients over 70 years has not been determined. Clinical correlation is essential. Performed By: #### L 501.2450, L100.0100, L500.4050 #### [facility] [address] [place], [address] ECRCL 136.26 ml/min Normal [facility] 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: Performed By: #### L501.2450, L100.0100, L500.4050 #### [facility] [address] [place], [address] EST GFR - AA 161 mL/min Normal >60 [facility] 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: Result Comment: GFR Robinson c Performed By: #### L 501.2450, L100.0100, L500.4050 #### [facility] [address] [place], [address] GAP 8 Normal 5-15 [facility] 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: Performed By: #### L501.2450, L100.0100, L500.4050 #### [facility] [address] [place], [address] GFR/1.73 sq M.predicted among non-blacks MDRD (S/P/Bld) [Vol rate/Area] 133 mL/min/{1.73_m2} Normal >60 [facility] 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: Result Comment: Non- GFR Calc Performed By: #### L 501.2450, L100.0100, L500.4050 #### [facility] [address] [place], [address] Globulin (S) [Mass/Vol] 5.0 g/dL High 2.2-4.2 [facility] 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: Performed By: #### L501.2450, L100.0100, L500.4050 #### [facility] [address] [place], [address] Glucose [Mass/Vol] 139 mg/dL High 74-106 [facility] 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: Result Comment: Fasting Glucose result g reater than or equal to 126 mg/dL suggests DIABETES MELLITUS per A.D.A. criteria. Performed By: #### L 501.2450, L100.0100, L500.4050 #### [facility] [address] [place], [address] Potassium [Moles/Vol] 3.5 mmol/L Normal 3.5-5.1 [facility] 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: Performed By: #### L501.2450, L100.0100, L500.4050 #### [facility] [address] [place], [address] Sodium [Moles/Vol] 136 mmol/L Normal 136-145 [facility] 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: Performed By: #### L501.2450, L100.0100, L500.4050 #### [facility] [address] [place], [address] T PROT 7.7 g/dL Normal 6.4-8.2 [facility] 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: Performed By: #### L501.2450, L100.0100, L500.4050 #### [facility] [address] [place], [address] Urea nitrogen [Mass/Vol] 6 mg/dL Low 7-18 [facility] 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: Performed By: #### L501.2450, L100.0100, L500.4050 #### [facility] [address] [place], [address] Emergency Department Summary on 10-07-2024 Emergency Department Summary [facility] Medical Records Department [address] [place] [address] Emergency Department Summary 10/07/24 MR#: [id number] Acct: [id number] Name: VAL RUIZ Rep #: [id number] : 2000 24 From: Jay Alvarez MD PCP: Care Physician,No Primary Status:REG ER Location: ED ADDENDUM by Dr. Maciel Campos DO on 10/07/24 at 1559 Patient's case signed out to me to follow-up on the CT scan of her abdomen pelvis. Patient CT abdomen pelvis IV contrast showed no evidence of acute appendicitis with focal acute inflammatory processes. Intrauterine better evaluated by ultrasound. Bilateral spondylolisthesis at L5. On reevaluation of the patient I went back and repeated the abdominal exam and noted that she has no tenderness palpation the right lower quadrant a more and states that her pain is worse when she gets up and moves around. I will discuss the case with Dr. Carlin her NEEDLE BAR MOLDER. Called back Dr. Carlin and discussed the results with her and she states that she can go home and follow-up with her in the office. She is recommending Tylenol as needed and heat for symptomatic control. Patient is agreeable this plan all question concerns answered she was discharged home in stable condition. 10/07/24 3727 Cosigner Signature (if applicable): cc: No Primary Care Physician * Signed HPI History of Present Illness Chief Complaint: Abd Pain Narrative Narrative: 24-year-old female, G2, P1 at approximately 17 weeks gestation presents with abdominal pain that she has had since Saturday. This was approximately 4 days ago when she started having more right upper quadrant abdominal pain associated with nausea. She has not had any vomiting. Last bowel movement was a few days ago. She denies any dysuria or hematuria. No fevers or chills. She was seen in the emergency department on Saturday, 2 days ago and told to return if it was worsening. She now states she is having more right lower quadrant pain. Sometimes food does make it worse. She has been taking Tylenol without relief. She states that she is unable to lie on either side secondary to pain. She denies any vaginal bleeding or cramping. PFSH PFS Home Medications ???Medication ???Instructions ???Recorded ???Last Taken ???Type NK 10/07/24 Unknown History Allergy/AdvReac Type Severity Reaction Status Date / Time cephalexin (From Keflex) Allergy Mild Rash Verified 10/05/24 09:26 Social History Smoking Status: Never smoker ROS ROS ED ROS Narrative Constitutional: No fever, no chills. HEENT: No sore throat. No neck pain. No rhinorrhea. Cardiovascular: No chest pain. No palpitations. No pedal edema. Respiratory: No cough, no shortness of breath. Abdominal: Right sided abdominal pain. Positive nausea. No vomiting. Genitourinary: No dysuria. No hematuria. Musculoskeletal: No myalgias. No arthralgias. Neurologic: No headaches. No dizziness. No lightheadedness. EXAM Physical Exam Narrative Exam Narrative: Afebrile. Vital signs noted. Nontoxic-appearing. Cardiovascular examination feels a regular rate and rhythm. Lungs clear to auscultation bilaterally. Abdomen soft and mildly tender in the right lower quadrant. No rebound or guarding. Positive bowel sounds. Neurological examination nonfocal and nonlateralizing. Const Vital Signs: 10/07/24 10:17 10/07/24 12:16 10/07/24 14:00 Temperature 97.6 F L Temperature Source Temporal Pulse Rate 74 68 81 Respiratory Rate 19 H 16 16 Blood Pressure 109/62 110/70 106/71 Blood Pressure Mean 77 83 82 Pulse Ox 100 100 99 Oxygen Delivery Method Room Air MDM MDM MDM Narrative Medical decision making narrative: Differential diagnosis includes but not limited to colitis versus diverticulitis versus appendicitis versus ureterolithiasis. I reviewed the patient's prior visit. She had a gallbladder ultrasound which was grossly unremarkable, no gallstones. Hence, I doubt cholecystitis. She had normal laboratory work. I discussed with her repeating her labs to see if there has been any change. I also initially discussed radiation exposure and CT imaging of the abdomen and pelvis with her given that she is 17 weeks gestation. She would like to hold off on any imaging currently until after discussion with NEEDLE BAR MOLDER. She usually sees the cycle analyst Kati Rolle at the [facility]. I reviewed her laboratory work and compared it to prior. Her white count remains normal at 7.0 with hemoglobin 10.0, platelet count normal at 277. Glucose is elevated 139 with a normal anion gap of 8. AST low at 11 and ALT low at 10 with a normal alk phos. Lipase is also normal. I doubt pancreatitis or gallstone as she had a normal gallbladder ultrasound 2 days ago on my review. Toña (more content not included)... Normal [facility] Lipaseon 10-07-2024 Lipase [Catalytic activity/Vol] 27 U/L Normal 13-75 [facility] 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: Result Comment: Please note: LIPASE revised reference range effective 23. New Lipase methodology. Expected to produce lower values than the previous assay method. NEW Reference Range: 13 - 75 U/L Performed By: #### L 100.0100, L500.4050, L501.2450 #### [facility] [address] [place], [address] Urinalysis, Completeon 10-07 BACTERIA 3+ /hpf Normal None Seen [facility] 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: Order Comment: SUPERVISOR INSTANT POTATO PROCESSING TO SPECIFY Performed By: #### L 400.0001 #### [facility] [address] [place], [address] EPI,TRANSITION 0-5 SEEN Normal 0-5 [facility] 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: Order Comment: SUPERVISOR INSTANT POTATO PROCESSING TO SPECIFY Performed By: #### L 400.0001 #### [facility] [address] [place], [address] WBC 0-5 SEEN Normal 0-5 [facility] 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: Order Comment: SUPERVISOR INSTANT POTATO PROCESSING TO SPECIFY Performed By: #### L 400.0001 #### [facility] [address] [place], [address] EPI,SQUAMOUS 5-10 SEEN Normal 5-10 [facility] 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: Order Comment: SUPERVISOR INSTANT POTATO PROCESSING TO SPECIFY Performed By: #### L 400.0001 #### [facility] [address] [place], [address] Mucus Ql (Urine sed) 0 SEEN Normal [facility] 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: Order Comment: SUPERVISOR INSTANT POTATO PROCESSING TO SPECIFY Performed By: #### L 400.0001 #### [facility] [address] [place], [address] RBC 0 SEEN Normal 0-5 [facility] 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: Order Comment: SUPERVISOR INSTANT POTATO PROCESSING TO SPECIFY Performed By: #### L 400.0001 #### [facility] [address] [place], [address] CBC W/Diff, Automatedon 09-23 Absolute Lymph 1.41 X10 3/uL Normal 0.83-4.51 [facility] 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: Performed By: #### L100.0100, L500.4050, L501.2450 #### [facility] [address] [place], [address] Absolute Neut 5.1 X10 3/uL Normal 2.0-7.7 [facility] 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: Performed By: #### L100.0100, L500.4050, L501.2450 #### [facility] [address] [place], [address] Basophils/100 WBC (Bld) 0.6 % Normal 0-1 [facility] 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: Performed By: #### L100.0100, L500.4050, L501.2450 #### [facility] [address] [place], [address] Eosinophils/100 WBC (Bld) 3.9 % Normal 0-5 [facility] 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: Performed By: #### L100.0100, L500.4050, L501.2450 #### [facility] [address] [place], [address] Erythrocyte distribution width (RBC) [Ratio] 15.7 % High 11.6-14.6 [facility] 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: Performed By: #### L100.0100, L500.4050, L501.2450 #### [facility] [address] [place], [address] Hematocrit (Bld) [Volume fraction] 31.3 % Low 37-47 [facility] 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: Performed By: #### L100.0100, L500.4050, L501.2450 #### [facility] [address] [place], [address] Hemoglobin (Bld) [Mass/Vol] 10.0 g/dL Low 12.0-15.0 [facility] 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: Performed By: #### L100.0100, L500.4050, L501.2450 #### [facility] [address] [place], [address] IG% 0.400 Normal 0.0-0.9 [facility] 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: Result Comment: IG% - Immature Granulocy meryl (promyelocytes, myelocytes and metamyelocytes) > 1% indicates that a LEFT SHIFT is Present. Performed By: #### L 100.0100, L500.4050, L501.2450 #### [facility] [address] [place], [address] Lymphocytes/100 WBC (Bld) 19.6 % Normal 19-41 [facility] 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: Performed By: #### L100.0100, L500.4050, L501.2450 #### [facility] [address] [place], [address] MCH (RBC) [Entitic mass] 28.5 pg Normal 27.0-32.0 [facility] 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: Performed By: #### L100.0100, L500.4050, L501.2450 #### [facility] [address] [place], [address] MCHC (RBC) [Mass/Vol] 31.9 g/dL Low 32-36 [facility] 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: Performed By: #### L100.0100, L500.4050, L501.2450 #### [facility] [address] [place], [address] MCV (RBC) [Entitic vol] 89.2 fL Normal 81-99 [facility] 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: Performed By: #### L100.0100, L500.4050, L501.2450 #### [facility] [address] [place], [address] Monocytes/100 WBC (Bld) 5.5 % Normal 0-10 [facility] 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: Performed By: #### L100.0100, L500.4050, L501.2450 #### [facility] [address] [place], [address] Neutrophils/100 WBC (Bld) 70.0 % Normal 47-70 [facility] 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: Performed By: #### L100.0100, L500.4050, L501.2450 #### [facility] [address] [place], [address] Nucleated RBC (Bld) [#/Vol] 0 10*3/uL Normal 0-5 [facility] 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: Performed By: #### L100.0100, L500.4050, L501.2450 #### [facility] [address] [place], [address] Platelet mean volume (Bld) [Entitic vol] 11.0 fL Normal 6.2-12.0 [facility] 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: Performed By: #### L100.0100, L500.4050, L501.2450 #### [facility] [address] [place], [address] Platelets (Bld) [#/Vol] 240 10*3/uL Normal 150-450 [facility] 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: Performed By: #### L100.0100, L500.4050, L501.2450 #### [facility] [address] [place], [address] RBC (Bld) [#/Vol] 3.51 10*6/uL Low 4.2-5.4 [facility] 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: Performed By: #### L100.0100, L500.4050, L501.2450 #### [facility] [address] [place], [address] RDW SD 50.5 fl High 35.1-43.9 [facility] 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: Performed By: #### L100.0100, L500.4050, L501.2450 #### [facility] [address] [place], [address] WBC (Bld) [#/Vol] 7.2 10*3/uL Normal 4.4-11.0 [facility] 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: Performed By: #### L100.0100, L500.4050, L501.2450 #### [facility] [address] [place], [address] Comprehensive Metabolic Prof ilon 10-05-2024 Albumin [Mass/Vol] 2.6 g/dL Low 3.2-5.0 [facility] 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: Performed By: #### L100.0100, L500.4050, L501.2450 #### [facility] [address] [place], [address] Albumin/Globulin [Mass ratio] 0.5 {ratio} Low 0.9-2.4 [facility] 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: Performed By: #### L100.0100, L500.4050, L501.2450 #### [facility] [address] [place], [address] ALK P 68 U/L Normal 45-117 [facility] 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: Performed By: #### L100.0100, L500.4050, L501.2450 #### [facility] [address] [place], [address] ALT [Catalytic activity/Vol] 10 U/L Low 13-56 [facility] 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: Performed By: #### L100.0100, L500.4050, L501.2450 #### [facility] [address] [place], [address] AST [Catalytic activity/Vol] 20 U/L Normal 15-37 [facility] 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: Result Comment: Slight Hemolysis, Result may be falsely increased. Performed By: #### L 100.0100, L500.4050, L501.2450 #### [facility] [address] [place], [address] Bilirubin [Mass/Vol] 0.50 mg/dL Normal 0.20-1.00 [facility] 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: Result Comment: For patients on eltrombo pag therapy, use of Dimension [place] TBIL is not recommended. Performed By: #### L 100.0100, L500.4050, L501.2450 #### [facility] [address] [place], [address] BUN/CRE 10.6 RATIO Normal 10-20 [facility] 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: Performed By: #### L100.0100, L500.4050, L501.2450 #### [facility] [address] [place], [address] CA,Total 9.0 mg/dL Normal 8.5-10.1 [facility] 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: Performed By: #### L100.0100, L500.4050, L501.2450 #### [facility] [address] [place], [address] Chloride [Moles/Vol] 105 mmol/L Normal 98-107 [facility] 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: Performed By: #### L100.0100, L500.4050, L501.2450 #### [facility] [address] [place], [address] CO2 [Moles/Vol] 23.0 mmol/L Normal 21.0-32.0 [facility] 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: Performed By: #### L100.0100, L500.4050, L501.2450 #### [facility] [address] [place], [address] Creatinine [Mass/Vol] 0.57 mg/dL Normal 0.55-1.02 [facility] 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: Result Comment: The validity of the calc ulated GFR GFRAA in patients over 70 years has not been determined. Clinical correlation is essential. Performed By: #### L 100.0100, L500.4050, L501.2450 #### [facility] [address] [place], [address] ECRCL 140.65 ml/min Normal [facility] 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: Performed By: #### L100.0100, L500.4050, L501.2450 #### [facility] [address] [place], [address] EST GFR - AA 167 mL/min Normal >60 [facility] 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: Result Comment: GFR Robinson c Performed By: #### L 100.0100, L500.4050, L501.2450 #### [facility] [address] [place], [address] GAP 8 Normal 5-15 [facility] 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: Performed By: #### L100.0100, L500.4050, L501.2450 #### [facility] [address] [place], [address] GFR/1.73 sq M.predicted among non-blacks MDRD (S/P/Bld) [Vol rate/Area] 138 mL/min/{1.73_m2} Normal >60 [facility] 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: Result Comment: Non- GFR Calc Performed By: #### L 100.0100, L500.4050, L501.2450 #### [facility] [address] [place], [address] Globulin (S) [Mass/Vol] 4.8 g/dL High 2.2-4.2 [facility] 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: Performed By: #### L100.0100, L500.4050, L501.2450 #### [facility] [address] [place], [address] Glucose [Mass/Vol] 116 mg/dL High 74-106 [facility] 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: Result Comment: Fasting Glucose result f rom 100 to 125 mg/dL suggests IMPAIRED HOMEOSTASIS per A.D.A. criteria. Performed By: #### L 100.0100, L500.4050, L501.2450 #### [facility] [address] [place], [address] Potassium [Moles/Vol] 3.7 mmol/L Normal 3.5-5.1 [facility] 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: Result Comment: Slight Hemolysis, Result may be falsely increased. Performed By: #### L 100.0100, L500.4050, L501.2450 #### [facility] [address] [place], [address] Sodium [Moles/Vol] 136 mmol/L Normal 136-145 [facility] 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: Performed By: #### L100.0100, L500.4050, L501.2450 #### [facility] [address] [place], [address] T PROT 7.4 g/dL Normal 6.4-8.2 [facility] 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: Performed By: #### L100.0100, L500.4050, L501.2450 #### [facility] [address] [place], [address] Urea nitrogen [Mass/Vol] 6 mg/dL Low 7-18 [facility] 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: Performed By: #### L100.0100, L500.4050, L501.2450 #### [facility] [address] [place], [address] Emergency Department Summary on 10-05-2024 Emergency Department Summary [facility] Medical Records Department [address] [place] [address] Emergency Department Summary 10/05/24 MR#: [id number] Acct: [id number] Name: VAL RUIZ KATYA Rep #: [id number] : 2000 24 From: Lonnie Kumari DO PCP: Care Physician,No Primary Status:DEP ER Location: ED HPI History of Present Illness Chief Complaint: Abd Pain Narrative Narrative: Chief complaint and HPI: Right upper quadrant abdominal pain. 24-year-old female who is 17 weeks presents for evaluation of right upper quadrant abdominal pain. Patient does have gestational diabetes but otherwise has been unremarkable. Patient follows with [place] [facility]. Patient states yesterday she developed some right upper quadrant abdominal pain that has worsened today. She has not taken anything for the pain. She endorses some baseline nausea. Denies any fever, chills, shortness of breath, chest pain, diarrhea, constipation, lower abdominal pain, vaginal bleeding, pelvic cramping. Review of systems: See HPI Medications: As listed on the chart Allergies: As listed on the chart PFSH: Per chart Vital signs: As listed on the chart. Reviewed. Physical exam: Gen: A O x3, NAD Head: Normocephalic, atraumatic Eyes: No sclera icterus, conjunctiva clear ENT: Moist mucous membranes Neck: Trachea midline, No JVD CV: RRR, no murmurs, no peripheral edema Resp: Lungs CTA BL, no w/r/c GI: Abd soft, non-distended, tender to palpation in the right upper quadrant, negative Fields sign, negative McBurney, no r/r/g : No CVA tenderness Musc: Full ROM, no deformity Skin: Warm, dry Neuro: Alert, oriented, grossly intact, sensation intact Psych: Cooperative, appropriate mood and affect PFS PFS Allergy/AdvReac Type Severity Reaction Status Date / Time cephalexin (From Keflex) Allergy Mild Rash Verified 10/05/24 09:26 Social History Smoking Status: Never smoker EXAM Physical Exam Const Vital Signs: 10/05/24 09:27 10/05/24 11:26 10/05/24 12:47 Temperature 97.5 F L 97.9 F Temperature Source Temporal Pulse Rate 91 70 70 Respiratory Rate 16 16 16 Blood Pressure 123/56 H 120/58 L 120/58 L Blood Pressure Mean 78 78 78 Pulse Ox 98 98 98 Oxygen Delivery Method Room Air MDM MDM MDM Narrative Medical decision making narrative: 24-year-old female who is 17 weeks presents for evaluation of right upper quadrant abdominal pain. Differential diagnosis includes but is not limited to biliary colic, cholelithiasis, cholecystitis, GERD, pancreatitis. Patient is not having any lower abdominal pain, pelvic pain, or vaginal bleeding therefore I do not think any OB or lower abdominal ultrasound is needed at this time. Patient offered morphine but declined. Zofran and Tylenol ordered for pain. Gallbladder ultrasound ordered with labs. CBC without leukocytosis. Patient is has anemia with hemoglobin of 10. This is likely secondary to . Platelet count is unremarkable. CMP without NORMAN or transaminitis. Lipase unremarkable. Patient's glucose is 116. Ultrasound of the gallbladder is unremarkable. No gallstones. On reevaluation, patient's pain is improved. Again she denies any lower abdominal or pelvic pain. No vaginal bleeding. Patient's [facility] group at [facility] was consulted and patient was discussed with the cycle analyst on-call. Patient will follow-up in their office. She recommended heart tones as long as they are unremarkable patient stable to discharge home. heart tones 136. Patient stable to discharge home. Return precautions explained. Follow-up with [facility]. Tylenol as needed for pain. Impression: 1. Right upper quadrant abdominal pain 2. 17 weeks 3. Anemia Lab Data Labs: Laboratory Results - last 24 hr 10/05/24 10:05 WBC 7.2 RBC 3.51 L Hgb 10.0 L Hct 31.3 L MCV 89.2 MCH 28.5 MCHC 31.9 L RDW Std Deviation 50.5 H RDW Coeff of Adore 15.7 H Plt Count 240 MPV 11.0 Immature Gran % (Auto) 0.400 Neut % (Auto) 70.0 Lymph % (Auto) 19.6 [place] % (Auto) 5.5 Eos % (Auto) 3.9 Baso % (Auto) 0.6 Absolute Neuts (auto) 5.1 Absolute Lymphs (auto) 1.41 Nucleated RBC % 0 Sodium 136 Potassium 3.7 Chloride 105 Carbon Dioxide 23.0 Anion Gap 8 BUN 6 L Creatinine 0.57 Estim Creat Clear Calc 140.65 Est GFR (MDRD) Af Amer 167 Est GFR (MDRD) Non-Af 138 BUN/Creatinine Ratio 10.6 Glucose 116 H Calcium 9.0 Total Bilirubin 0.50 AST 20 ALT 10 L Alkaline Phosphatase 68 Total Protein 7.4 Albumin 2.6 L Globulin 4.8 H Albumin/Globulin Ratio 0.5 L Lipase 19 Radiography Diagnostic Testing: Clinical Impression(s) from Imaging Studies Gallbladder Ultrasound 10/05/24 09:55 IMPR (more content not included)... Normal [facility] Gallbladderon 10-05-2024 Gallbladder [facility] Imaging Services [address] [place] [address] Gallbladder MR#: [id number] Acct: [id number] Name: VAL RUIZ Rep #: [id number] : 2000 F 24 From: Felice street MD PCP: Care Physician,No Primary Status: REG ER Study: Gallbladder Date of Exam: 10/05/24 Exam# [id number] Ordering Dr: Lonnie Kumari DO -[id number] STUDY: ABDOMINAL ULTRASOUND - RIGHT UPPER QUADRANT REASON FOR VISIT: Female, 24 years old Right upper quadrant pain, TECHNIQUE: Ultrasound evaluation of the right upper quadrant was performed with real-time and static buckley-scale imaging. TECHNICAL QUALITY: Adequate. COMPARISON: None. FINDINGS: Liver: The liver measures 15.6 cm. There is normal echogenicity of the liver. The bile ducts are within normal limits. There is hepatic color flow. The direction of portal flow is hepatopetal. There is no demonstrated mass lesion. Gallbladder: Normal distended gallbladder. The gallbladder wall measures 2.0 mm. There is a negative sonographic Fields''s sign. There is no pericholecystic fluid. There are no gallstones. Common Bile Duct (C.B.D.): The common bile duct measures 3.0 mm. Pancreas: Normal size of the head, body and tail of the pancreas. There is normal echogenicity of the pancreas. There is no demonstrated pancreatic mass or cyst. Right Kidney: Normal size of the right kidney. The right kidney measures 9.5 cm x 5.9 cm x 4.2 cm. Normal renal cortex. The right cortex measures 1.7 cm. There is no demonstrated renal mass or cyst. There is no right hydronephrosis. US/Gallbladder IMPRESSION: Normal right upper quadrant ultrasound examination. Electronically Signed: Felice Pineda MD at 11:16 EST , CC: Dr. Lonnie Rosa-Cortez, DO; No Primary Care Physician Pearl Maker: Signed Normal [facility] Lipaseon 10-05-2024 Lipase [Catalytic activity/Vol] 19 U/L Normal 13-75 [facility] 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: Result Comment: Please note: LIPASE revised reference range effective 23. New Lipase methodology. Expected to produce lower values than the previous assay method. NEW Reference Range: 13 - 75 U/L Performed By: #### L 100.0100, L500.4050, L501.2450 #### [facility] [address] [place], [address] CNNURSEon 09-22-2024 CNNURSE Nurse Visit (ENDIMT) VAL RUIZ ([id number]) 2000 F Date Time Provider Department 09/22/24 1:00 PM JANICE COLE During your visit today, we recorded the following information about you: Janice Cole, NAZ 09/22/2024 1:24 PM Signed DIABETES CARE AND EDUCATION VISIT Location: [place] Type of visit: In person individual PATIENT'S MAIN CONCERN TODAY: GDM Support person present for education today: none Cognitive ability: Alert and oriented Motivation to learn: Interested Learning barriers identified by educator: none Method of instruction: written, verbal, and demonstration DIABETES FINDINGS: Past hx of GDM requiring medication support Monitoring: Reviewed monitoring and timing of testing Meal Planning: Reviewed basic meal planning for Medications: Discussed Insulin as most commonly used compound in Problem Solving:Reviewed Hyper and hypoglycemia Physical Activity: benefits of activity to help body regulate the sugarss reviewed Reducing Risks: Benefits to patient and developing child from tight managing of sugars HANDOUTS: Healthy You: Diabetes and LEARNING RESPONSE: Diabetes pathophysiology: Demonstrated understanding/competency today or at previous visit Healthy eating: Demonstrated understanding/competency today or at previous visit Being active: Demonstrated understanding/competency today or at previous visit Taking medications: Demonstrated understanding/competency today or at previous visit Monitoring glucose: Demonstrated understanding/competency today or at previous visit Acute complications: Demonstrated understanding/competency today or at previous visit POSSIBLE FUTURE TOPICS: 1. DIABETES CARE AND EDUCATION PLAN: Education completed and annual diabetes education follow-up visit recommended Time Spent (Minutes): 30 This visit note will be communicated to the healthcare provider via access to shared medical record. SIGNATURE: Janice Cole RN PATIENT NAME: Val Ruiz DATE: September 22, 2024 TIME: 12:45 PM Referring Provider: ELBA KHANNA [[id number]] Allergies As of Date: 09/22/2024 Noted Allergy Reaction CEPHALEXIN 05/01/2022 2 - Rash Date Reviewed: 09/11/2024 Reviewed by: Melissa Aguilera MD - Fully Assessed Visit Diagnosis:Diet controlled gestational diabetes mellitus (GDM) in second trimester [O24.410] Order(s):CONSULT TO DIABETES EDUCATION DSME [5887557] Order #: [id number]: 2 Prescriptions as of 09/22/2024 - Blood-Glucose Meter Use as directed to check glucose levels up to seven times daily. - blood sugar diagnostic test strip Use as directed to check glucose levels up to seven times daily. - Lancets Use as directed to check glucose levels up to seven times daily. - alcohol swabs (ALCOHOL PREP PADS) Use as directed to check glucose levels up to seven times daily. - diphenhydramine HCl (BENADRYL ALLERGY ORAL) Take by mouth daily at bedtime. - fluticasone (FLONASE) 50 mcg/actuation nasal spray Use 2 Sprays in each nostril once daily. Rinse mouth after use. - aspirin, enteric coated (ECOTRIN LOW STRENGTH) 81 mg EC tablet Take 1 tablet by mouth once daily. - citalopram (CELEXA) 20 mg tablet Take 20 mg by mouth once daily. - no115/iron/folic acid ( 19 ORAL) Take 1 tablet by mouth once daily. - albuterol HFA (PROVENTIL HFA, VENTOLIN HFA) 90 mcg/actuation inhaler Inhale 2 Puffs as instructed every 4 hours as needed for wheezing/shortness of breath. - QUEtiapine (SEROQUEL) 25 mg tablet Problem List As Of Date 09/22/2024 Noted Resolved Depression, major, recurrent, moderate (HCC) [F*07/11/2024 Generalized anxiety disorder [F41.1] 07/11/2024 Bipolar 1 disorder, mixed (HCC) [F31.60] 08/03/2024 Asthma [J45.909] Obesity during [O99.210] 08/03/2024 Encounter for supervision of high risk pregnanc*08/03/2024 History of delivery [Z98.891] 08/03/2024 Anxiety [F41.9] 08/03/2024 History of gestational diabetes mellitus (GDM) *08/03/2024 Elevated hemoglobin A1c [R73.09] 09/15/2024 Anemia complicating , second trimester*09/15/2024 Elevated glucose tolerance test [R73.09] 09/18/2024 Diet controlled gestational diabetes mellitus (*09/18/2024 Encounter Status:[facility]LE [facility]OBGYWM[facility] VAL RUIZ ([id number]) 2000 F Date Time Provider Department 09/18/24 ELBA KHANNA During your visit today, we recorded the following information about you: Elba Khanna APRN.JASE 09/18/2024 2:08 PM Signed Please notify patient: Early 1 hour >200, consistent with GDM. Supplies ordered. Nutrition consult and diabetes consult placed. Growth ultrasounds every 4 weeks at 28 weeks ordered. Patient to bring glucose logs to next appointment. Elba Khanna APRN.Edel Armas RN 09/18/2024 2:31 PM Signed Patient notified of results, verbalizes understanding of instructions. Patient transferred to [facility] to make appointments. Edel Rios RN Allergies As of Date: 09/18/2024 Noted Allergy Reaction CEPHALEXIN 05/01/2022 2 - Rash Date Reviewed: 09/11/2024 Reviewed by: Melissa Aguilera MD - Fully Assessed Reason for Visit: Gestational Diabetes [3789] Primary Visit Diagnosis:Elevated glucose tolerance test [R73.09] Other Visit Diagnosis:Diet controlled gestational diabetes mellitus (GDM) in second trimester [O24.410] Order(s):Blood-Glucose MeterUse as directed to check glucose levels up to seven times daily.Disp: 1 EachRfl: 0 blood sugar diagnostic test stripUse as directed to check glucose levels up to seven times daily.Disp: 200 StripRfl: 8 LancetsUse as directed to check glucose levels up to seven times daily.Disp: 200 EachRfl: 8 alcohol swabs (ALCOHOL PREP PADS)Use as directed to check glucose levels up to seven times daily.Disp: 200 EachRfl: 8 OBSTETRIC ULTRASOUND [facility] [4083102] Order #: [id number]: 1 STANDING CONSULT TO DIABETES EDUCATION DSME [5402831] Order #: [id number]: 2 FUTURE CONSULT TO NUTRITION THERAPY [9020] Order #: [id number]: 4 FUTURE Prescriptions as of 09/18/2024 - Blood-Glucose Meter Use as directed to check glucose levels up to seven times daily. - blood sugar diagnostic test strip Use as directed to check glucose levels up to seven times daily. - Lancets Use as directed to check glucose levels up to seven times daily. - alcohol swabs (ALCOHOL PREP PADS) Use as directed to check glucose levels up to seven times daily. - diphenhydramine HCl (BENADRYL ALLERGY ORAL) Take by mouth daily at bedtime. - fluticasone (FLONASE) 50 mcg/actuation nasal spray Use 2 Sprays in each nostril once daily. Rinse mouth after use. - aspirin, enteric coated (ECOTRIN LOW STRENGTH) 81 mg EC tablet Take 1 tablet by mouth once daily. - citalopram (CELEXA) 20 mg tablet Take 20 mg by mouth once daily. - no115/iron/folic acid ( 19 ORAL) Take 1 tablet by mouth once daily. - albuterol HFA (PROVENTIL HFA, VENTOLIN HFA) 90 mcg/actuation inhaler Inhale 2 Puffs as instructed every 4 hours as needed for wheezing/shortness of breath. - QUEtiapine (SEROQUEL) 25 mg tablet Problem List As Of Date 09/18/2024 Noted Resolved Depression, major, recurrent, moderate (HCC) [F*07/11/2024 Generalized anxiety disorder [F41.1] 07/11/2024 Bipolar 1 disorder, mixed (HCC) [F31.60] 08/03/2024 Asthma [J45.909] Obesity during [O99.210] 08/03/2024 Encounter for supervision of high risk pregnanc*08/03/2024 History of delivery [Z98.891] 08/03/2024 Anxiety [F41.9] 08/03/2024 History of gestational diabetes mellitus (GDM) *08/03/2024 Elevated hemoglobin A1c [R73.09] 09/15/2024 Anemia complicating , second trimester*09/15/2024 Elevated glucose tolerance test [R73.09] 09/18/2024 Diet controlled gestational diabetes mellitus (*09/18/2024 Prescriptions ordered this encounter Disp Refills Start End BLOOD-GLUCOSE METER 1 Ea* 0 09/18/2024 Cmt: Per Insurance Coverage Sig: Use as directed to check glucose levels up to seven times daily. BLOOD SUGAR DIAGNOSTIC STRIPS 200 * 8 09/18/2024 Cmt: Per Insurance Coverage Sig: Use as directed to check glucose levels up to seven times daily. LANCETS 200 * 8 09/18/2024 Cmt: Per Insurance Coverage Sig: Use as directed to check glucose levels up to seven times daily. ALCOHOL SWABS 200 * 8 09/18/2024 Cmt: Per Insurance Coverage Sig: Use as directed to check glucose levels up to seven times daily. Encounter Status:Closed by EDEL RIOS on 09/18/24 Normal [facility] GESTATIONAL GLUCOSE SCREEN, 1-HOUR, 50 GRAM, NON-FASTINGon 09-18-2024 Glucose [Mass/Vol] 312 mg/dL High 74-134 [facility] 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: Order Comment: Specimen Type: BLOOD SPEC IMEN Ordering Facility: [facility] Address: [facility] [place] [id number] Result Comment: [facility] Congress of Obstetricians and Gynecologists (Juana/Darell) guidelines state a gestational diabetes mellitus positive screen is made, in women not previously diagnosed with overt diabetes, when the 1 hr plasma glucose level is equal to or above 140 mg/dL. [facility] recommends a 135 mg/dL cutoff. Performed By: #### 5 [id number] #### [facility] [id number] [address] [place], [place] [address]Sirena 09-15-2024 CNPN Telephone (OBGYWM) VAL RUIZ ([id number]) 2000 F Date Time Provider Department 09/15/24 KATI ROLLE During your visit today, we recorded the following information about you: Lisa Thompson RN 09/15/2024 9:50 AM Signed ----- Message from aKti Rolle APRN.CNM sent at 09/15/2024 9:40 AM EST ----- Hemoglobin A1C is elevated. It is recommended she complete an early 1 hour GCT test. Order placed. Please notify patient and assist with scheduling. PARMINDER White Tara, RN 09/15/2024 9:51 AM Signed Left message for patient to call office to notify of below information as well as her anemia reflex results-Mychart message was sent to Pt by provider. NAZ Castillo Tara, RN 09/15/2024 9:58 AM Signed ----- Message from Kati Rolle APRN.CNM sent at 09/15/2024 9:46 AM EST ----- Reviewed. Needs anatomy US at 16 AND 20 weeks. PARMINDER White Tara, RN 09/17/2024 4:15 PM Signed Pt notified of all details below. Transferred Pt to [facility] to get appointments scheduled. Pt denies questions/concerns. Lisa Thompson RN Allergies As of Date: 09/15/2024 Noted Allergy Reaction CEPHALEXIN 05/01/2022 2 - Rash Date Reviewed: 09/11/2024 Reviewed by: Mleissa Aguilera MD - Fully Assessed Reason for Visit: Results [95] Primary Visit Diagnosis:14 weeks gestation of [Z3A.14] Order(s):OBSTETRIC ULTRASOUND [facility] [[id number]] Order #: [id number]: 1 FUTURE Prescriptions as of 09/17/2024 - diphenhydramine HCl (BENADRYL ALLERGY ORAL) Take by mouth daily at bedtime. - fluticasone (FLONASE) 50 mcg/actuation nasal spray Use 2 Sprays in each nostril once daily. Rinse mouth after use. - aspirin, enteric coated (ECOTRIN LOW STRENGTH) 81 mg EC tablet Take 1 tablet by mouth once daily. - citalopram (CELEXA) 20 mg tablet Take 20 mg by mouth once daily. - no115/iron/folic acid ( 19 ORAL) Take 1 tablet by mouth once daily. - albuterol HFA (PROVENTIL HFA, VENTOLIN HFA) 90 mcg/actuation inhaler Inhale 2 Puffs as instructed every 4 hours as needed for wheezing/shortness of breath. - QUEtiapine (SEROQUEL) 25 mg tablet Problem List As Of Date 09/15/2024 Noted Resolved Depression, major, recurrent, moderate (HCC) [F*07/11/2024 Generalized anxiety disorder [F41.1] 07/11/2024 Bipolar 1 disorder, mixed (HCC) [F31.60] 08/03/2024 Asthma [J45.909] Obesity during [O99.210] 08/03/2024 Encounter for supervision of high risk pregnanc*08/03/2024 History of delivery [Z98.891] 08/03/2024 Anxiety [F41.9] 08/03/2024 History of gestational diabetes mellitus (GDM) *08/03/2024 Elevated hemoglobin A1c [R73.09] 09/15/2024 Anemia complicating , second trimester*09/15/2024 Encounter Status:Closed by KATI ROLLE on 09/17/24 Normal [facility] nuchal translucency me asured by Ivan 09-12-2024 Indication First trimester anatomic survey Maternal obesity, BMI >30 Impression REMOTE READ The patient is referred for a first trimester anatomy scan including nuchal translucency measurement as clinically indicated. - Single, live, intrauterine . - Altha rump length measurement is consistent with the established gestational age. - A qualitative screen of the nuchal translucency and other anatomic structures was unremarkable on first trimester anatomic assessment. - Not all structural malformations can be detected by ultrasound examination. Recommendations - A standard anatomic survey at 16 weeks can be offered and a detailed exam at 20 weeks is recommended for increased risk. Maternal Assessment Height 150 cm Height (ft) 4 ft Height (in) 11 in Physical Exam Initial weight (lb) 172 lb Initial BMI 34.74 kg/m Maternal assessment other: 2 Para 1 Method Transabdominal ultrasound examination Scott . Number of fetuses: 1 Dating LMP on: 06/10/2024 GA by LMP 13 w + 2 d DEEP by LMP: 03/17/2025 GA by prior assessment 13 w + 2 d DEEP by prior assessment: 03/17/2025 Ultrasound examination on: 09/11/2024 GA by U/S based upon: CRL GA by U/S 13 w + 1 d DEEP by U/S: 03/18/2025 Assigned: based on the LMP, selected on 08/03/2024 Assigned GA 13 w + 2 d Assigned DEEP: 03/17/2025 General Evaluation Cardiac activity present Placenta: posterior Cord vessels: 3 vessel cord Amniotic fluid: normal amount Biometry Standard FHR 149 bpm CRL 70.0 mm 13w 1d 41% [facility] First Trimester Anatomy Calvarium: normal Falx cerebri: normal Choroid plexus: normal Profile: normal Nasal bone: normal Retronasal triangle: normal Maxilla: normal Mandible: normal Nuchal translucency: Unremarkable Situs: normal Cardiac position: normal Cardiac axis: normal 4-chamber view: visualized 4-chamber view with color: visualized [id number]-[id number] view: normal Abdominal cord insertion: normal Stomach: normal Kidneys: normal Bladder: normal Color doppler of perivesical umbilical arteries: normal Vertebral alignment: normal Arms: normal Hands: normal Legs: normal Feet: normal Maternal Structures Uterus / Cervix Uterus: Visualized Uterus length 158 mm Uterus width 103 mm Uterus height 66 mm Uterus Vol 560.0 cm Ovaries / Tubes / Adnexa Rt ovary: Not visualized Lt ovary: Not visualized Performed By: Edel Trinh RDMS, RVT Read By: Ly Nugent M.D. MATERNAL MEDICINE [facility] CBC W Auto Differential pane l (Bld)on 09-11-2024 Basophils (Bld) [#/Vol] 0.03 10*3/uL Normal <0.11 [facility] 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: Order Comment: Specimen Type: BLOOD SPEC IMEN Ordering Facility: [facility] Address: [address] [place] [address] Performed By: #### M AT21 #### [facility] CLIA [id number] [address] [place] [address] Basophils/100 WBC (Bld) 0.5 % Normal [facility] 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: Order Comment: Specimen Type: BLOOD SPEC IMEN Ordering Facility: [facility] Address: [address] [place] [address] Performed By: #### M AT21 #### [facility] CLIA [id number] [address] [place] [address] Differential cell count method Nom (Bld) Auto Normal [facility] 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: Order Comment: Specimen Type: BLOOD SPEC IMEN Ordering Facility: [facility] Address: [address] [place] [address] Performed By: #### M AT21 #### [facility] CLIA [id number] [address] [place] [address] Eosinophils (Bld) [#/Vol] 0.21 10*3/uL Normal <0.46 [facility] 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: Order Comment: Specimen Type: BLOOD SPEC IMEN Ordering Facility: [facility] Address: [address] [place] [address] Performed By: #### M AT21 #### [facility] CLIA [id number] [address] [place] [address] Eosinophils/100 WBC (Bld) 3.4 % Normal [facility] 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: Order Comment: Specimen Type: BLOOD SPEC IMEN Ordering Facility: [facility] Address: [address] [place] [address] Performed By: #### M AT21 #### [facility] CLIA [id number] [address] [place] [address] Erythrocyte distribution width (RBC) [Ratio] 16.0 % High 11.5-15.0 [facility] 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: Order Comment: Specimen Type: BLOOD SPEC IMEN Ordering Facility: [facility] Address: [address] [place] [address] Performed By: #### M AT21 #### [facility] CLIA [id number] [address] [place] [address] Hematocrit (Bld) [Volume fraction] 31.4 % Low 36.0-46.0 [facility] 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: Order Comment: Specimen Type: BLOOD SPEC IMEN Ordering Facility: [facility] Address: [address] [place] [address] Performed By: #### M AT21 #### [facility] CLIA [id number] [address] [place] [address] Hemoglobin (Bld) [Mass/Vol] 10.1 g/dL Low 11.5-15.5 [facility] 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: Order Comment: Specimen Type: BLOOD SPEC IMEN Ordering Facility: [facility] Address: [address] [place] [address] Performed By: #### M AT21 #### [facility] CLIA [id number] [address] [place] [address] Immature granulocytes (Bld) [#/Vol] 10*3/uL Normal <0.10 [facility] 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: Order Comment: Specimen Type: BLOOD SPEC IMEN Ordering Facility: [facility] Address: [address] [place] [address] Performed By: #### M AT21 #### [facility] CLIA [id number] [address] [place] [address] Immature granulocytes/100 WBC (Bld) 0.3 % Normal [facility] 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: Order Comment: Specimen Type: BLOOD SPEC IMEN Ordering Facility: [facility] Address: [address] [place] [address] Performed By: #### M AT21 #### [facility] CLIA [id number] [address] [place] [address] Lymphocytes (Bld) [#/Vol] 1.85 10*3/uL Normal 1.00-4.00 [facility] 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: Order Comment: Specimen Type: BLOOD SPEC IMEN Ordering Facility: [facility] Address: [address] [place] [address] Performed By: #### M AT21 #### [facility] CLIA [id number] [address] [place] [address] Lymphocytes/100 WBC (Bld) 30.1 % Normal [facility] 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: Order Comment: Specimen Type: BLOOD SPEC IMEN Ordering Facility: [facility] Address: [address] [place] [address] Performed By: #### M AT21 #### [facility] CLIA [id number] [address] [place] [address] MCH (RBC) [Entitic mass] 28.2 pg Normal 26.0-34.0 [facility] 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: Order Comment: Specimen Type: BLOOD SPEC IMEN Ordering Facility: [facility] Address: [address] [place] [address] Performed By: #### M AT21 #### [facility] CLIA [id number] [address] [place] [address] MCHC (RBC) [Mass/Vol] 32.2 g/dL Normal 30.5-36.0 [facility] 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: Order Comment: Specimen Type: BLOOD SPEC IMEN Ordering Facility: [facility] Address: [address] [place] [address] Performed By: #### M AT21 #### [facility] CLIA [id number] [address] [place] [address] MCV (RBC) [Entitic vol] 87.7 fL Normal 80.0-100.0 [facility] 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: Order Comment: Specimen Type: BLOOD SPEC IMEN Ordering Facility: [facility] Address: [address] [place] [address] Performed By: #### M AT21 #### [facility] CLIA [id number] [address] [place] [address] Monocytes (Bld) [#/Vol] 0.34 10*3/uL Normal <0.87 [facility] 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: Order Comment: Specimen Type: BLOOD SPEC IMEN Ordering Facility: [facility] Address: [address] [place] [address] Performed By: #### M AT21 #### [facility] CLIA [id number] [address] [place] [address] Monocytes/100 WBC (Bld) 5.5 % Normal [facility] 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: Order Comment: Specimen Type: BLOOD SPEC IMEN Ordering Facility: [facility] Address: [address] [place] [address] Performed By: #### M AT21 #### [facility] CLIA [id number] [address] [place] [address] Neutrophils (Bld) [#/Vol] 3.69 10*3/uL Normal 1.45-7.50 [facility] 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: Order Comment: Specimen Type: BLOOD SPEC IMEN Ordering Facility: [facility] Address: [address] [place] [address] Performed By: #### M AT21 #### [facility] CLIA [id number] [address] [place] [address] Neutrophils/100 WBC (Bld) 60.2 % Normal [facility] 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: Order Comment: Specimen Type: BLOOD SPEC IMEN Ordering Facility: [facility] Address: [address] [place] [address] Performed By: #### M AT21 #### [facility] CLIA [id number] [address] [place] [address] Nucleated RBC (Bld) [#/Vol] 10*3/uL Normal <0.01 [facility] 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: Order Comment: Specimen Type: BLOOD SPEC IMEN Ordering Facility: [facility] Address: [address] [place] [address] Performed By: #### M AT21 #### [facility] CLIA [id number] [address] [place] [address] Nucleated RBC/100 WBC (Bld) [Ratio] 0.0 /100 WBC Normal [facility] 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: Order Comment: Specimen Type: BLOOD SPEC IMEN Ordering Facility: [facility] Address: [address] [place] [address] Performed By: #### M AT21 #### [facility] CLIA [id number] [address] [place] [address] Platelet mean volume (Bld) [Entitic vol] 10.1 fL Normal 9.0-12.7 [facility] 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: Order Comment: Specimen Type: BLOOD SPEC IMEN Ordering Facility: [facility] Address: [address] [place] [address] Performed By: #### M AT21 #### [facility] CLIA [id number] [address] [place] [address] Platelets (Bld) [#/Vol] 303 10*3/uL Normal 150-400 [facility] 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: Order Comment: Specimen Type: BLOOD SPEC IMEN Ordering Facility: [facility] Address: [address] [place], [place] [address] Performed By: #### M AT21 #### [facility] CLIA [id number] [address] [place] [address] RBC (Bld) [#/Vol] 3.58 10*6/uL Low 3.90-5.20 [facility] 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: Order Comment: Specimen Type: BLOOD SPEC IMEN Ordering Facility: [facility] Address: [address] [place] [address] Performed By: #### M AT21 #### [facility] CLIA [id number] [address] [place] [address] WBC (Bld) [#/Vol] 6.14 10*3/uL Normal 3.70-11.00 [facility] 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: Order Comment: Specimen Type: BLOOD SPEC IMEN Ordering Facility: [facility] Address: [address] [place] [address] Performed By: #### M AT21 #### [facility] CLIA [id number] [address] [place] [address] nuchal translucency me asured by USon 09-11-2024 Radiology Study observation (narrative) [facility] HBV surface Ag Ser Qlon 08-24 HBV surface Ag Ql (S) Negative Normal Negative [facility] 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: Order Comment: Specimen Type: BLOOD SPEC IMEN Ordering Facility: [facility] Address: [address] [place] [address] Performed By: #### 5 7021-8 #### [id number] [address] [place] [address] [place] HCV Ab Ser Qlon 09-11-2024 HCV Ab Ql (S) Negative Normal Negative [facility] 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: Order Comment: Specimen Type: BLOOD SPEC IMEN Ordering Facility: [facility] Address: [address] [place] [address] Result Comment: The result suggests no evidence of active infection with Hepatitis C virus. Should recent infection be suspected, repeat testing may be considered 4-6 weeks after this draw. Performed By: #### 1 6128-1 #### [facility] CLIA [id number] [address] [place], [place] [address] OF [facility] HIV 1+2 Ab IA Qlon 4 HIV 1 and 2 Ab IA.rapid Nom (S/P/Bld) Normal [facility] 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: Order Comment: Specimen Type: BLOOD SPEC IMEN Ordering Facility: [facility] Address: [address] [place] [address] Result Comment: Test not indicated. Performed By: #### 5 7021-8 #### [facility] CLIA [id number] [address] [place] [address] [place] HIV 1+2 Ab+HIV1 p24 Ag IA Ql Non-Reactive Normal Nonreactive [facility] 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: Order Comment: Specimen Type: BLOOD SPEC IMEN Ordering Facility: [facility] Address: [address] [place] [address] Performed By: #### 5 7021-8 #### [facility] CLIA [id number] [address] [place] [address] HIV immunoassay testing algorithm interpretation (S/P/Bld) [Interp] Normal [facility] 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: Order Comment: Specimen Type: BLOOD SPEC IMEN Ordering Facility: [facility] Address: [address] [place] [address] Result Comment: No e vidence of HIV-1 or HIV-2 infection. Should recent infection be suspected, repeat testing may be considered 2-3 weeks after this draw. [place] Rev. Code 3701.243(E): This information has been disclosed to you from confidential records protected from disclosure by state law. ???You shall make no further disclosure of this information without the specific, written, and informed release of the individual to whom it pertains or as otherwise permitted by state law. A general authorization for the release of medical or other information is not sufficient for the purpose of the release of HIV test results or diagnoses. Performed By: #### 5 7021-8 #### [facility] CLIA [id number] [address] [place] [address] [place] HbA1c (Bld)on 09-11-2024 Average glucose Estimated from glycated hemoglobin (Bld) [Mass/Vol] 120 mg/dL Normal [facility] 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: Order Comment: Specimen Type: BLOOD SPEC IMEN Ordering Facility: [facility] Address: [address] [place] [address] Result Comment: eAG: (Estimated average glucose) is a calculated value from HgbA1c and is senior sales representative of the average blood glucose level in the last 2-3 month period. Performed By: #### 5 7021-8 #### [facility] CLIA [id number] [address] [place] [address] [place] HbA1c (Bld) [Mass fraction] 5.8 % High 4.3-5.6 [facility] 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: Order Comment: Specimen Type: BLOOD SPEC IMEN Ordering Facility: [facility] Address: [address] [place] [address] Result Comment: [place] Diabetes Association guidelines indicate that patients with HgbA1c in the range 5.7-6.4% are at increased risk for development of diabetes, and intervention by lifestyle modification may be beneficial. HgbA1c greater or equal to 6.5% is considered diagnostic of diabetes. Performed By: #### 5 7021-8 #### [facility] [id number] [address] [place] [address] [place] [id number] PLUSon 09-11-2024 Cell-free DNA./Cell-f ree DNA.total Dosage of chromosome-speci fic cfDNA (cfDNA) [Molar fraction] 12% Normal [facility] 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: Order Comment: Specimen Type: BLOOD SPEC IMEN Ordering Facility: [facility] Address: [address] [place] [address] Performed By: #### M AT21 #### [facility] CLIA [id number] [address] [place] [address] Chr 13+18+21+X+Y aneuploidy Dosage of chromosome-speci fic cfDNA Ql (cfDNA) Negative Normal [facility] 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: Order Comment: Specimen Type: BLOOD SPEC IMEN Ordering Facility: [facility] Address: [address] [place] [address] Performed By: #### M AT21 #### [facility] CLIA [id number] [address] [place] [address] Chr 21 trisomy Dosage of chromosome-speci fic cfDNA Ql (cfDNA) Negative Normal [facility] 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: Order Comment: Specimen Type: BLOOD SPEC IMEN Ordering Facility: [facility] Address: [address] [place] [address] Performed By: #### M AT21 #### [facility] [place] [id number] [address] [place] [address] Chr X and Y aneuploidy risk Sequencing Ql (cfDNA) [Interp] Not detected Normal [facility] 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: Order Comment: Specimen Type: BLOOD SPEC IMEN Ordering Facility: [facility] Address: [address] [place] [address] Result Comment: Not Detected Not Detected Performed By: #### M AT21 #### [facility] CLIA [id number] [address] [place] [address] Citation Max (Reference lab test) Comment Normal [facility] 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: Order Comment: Specimen Type: BLOOD SPEC IMEN Ordering Facility: [facility] Address: [address] [place] [address] Result Comment: 1. P [place] CHAMBERLAIN, et al. Lizzie Med. 2012;14(3):296-305. 2. Gregory MAE, et al. Prenat Diag. 2013;33(6):591-597. 3. Papo C, et al. Clin Chem. 2015 Apr;61(4):608-616. 4. Rory CHAMBERLAIN, et al. Lizzie Med. 2011;13(11):913-920. 5. ACOG/SMFM Practice Bulletin No. 226, Jun 2020. Performed By: #### M AT21 #### [facility] CLIA [id number] [address] [place] [address] Gestational age Estimated from conception date Scott Normal [facility] 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: Order Comment: Specimen Type: BLOOD SPEC IMEN Ordering Facility: [facility] Address: [address] [place] [address] Performed By: #### M AT21 #### [facility] CLIA [id number] [address] [place] [id number] GESTATIONALAGE AGE > OR = 9W Yes Normal [facility] 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: Order Comment: Specimen Type: BLOOD SPEC IMEN Ordering Facility: [facility] Address: [address] [place] [address] Performed By: #### M AT21 #### [facility] CLIA [id number] [address] [place] [id number] Laboratory comment Max (Report) Comment Normal [facility] 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: Order Comment: Specimen Type: BLOOD SPEC IMEN Ordering Facility: [facility] Address: [address] [place] [address] Result Comment: The MaterniT(R) 21 PLUS laboratory-developed test (LDT) analyzes circulating cell-free DNA from a maternal blood sample. This test is used for screening purposes and not diagnostic. Clinical correlation is recommended. Validation data on twin pregnancies is limited and the ability of this test to detect aneuploidy in higher multiple gestations has not yet been validated. Performed By: #### M AT21 #### [facility] CLIA [id number] [address] [place] [id number] funeral director/embalmer/owner name Nom (Provider) Comment Normal [facility] Comment on above: Order Comment: Specimen Type: BLOOD SPEC IMEN Ordering Facility: [facility] Address: [address] [place] [address] Result Comment: This specimen showed an expected representation of chromosome 21, 18 and 13 material. Clinical correlation is suggested. Comment Vasile Carmichael MD, PhD, Director, [employer] Performed By: #### M AT21 #### [facility] CLIA [id number] [address] [place] [address] LIMITATIONS OF THE TEST Comment Normal [facility] Comment on above: Order Comment: Specimen Type: BLOOD SPEC IMEN Ordering Facility: [facility] Address: [address] [place] [address] Result Comment: Ryne brian the results of these tests are highly reliable, discordant results, including inaccurate sex prediction, may occur due to placental, maternal, or mosaicism or neoplasm; vanishing twin; prior maternal organ transplant; or other causes. These tests are screening tests and not diagnostic; they do not replace the accuracy and precision of diagnosis with CVS or amniocentesis. A patient with a positive test result should be referred for genetic counseling and offered invasive diagnosis for confirmation of test results.[5] The results of this testing, including the benefits and limitations, should be discussed with a qualified healthcare provider. management decisions, including termination of the , should not be based on the results of these tests alone. The healthcare provider is responsible for the use of this information in the management of their patient. Sex chromosomal aneuploidies are not reportable for known multiple gestations. A negative result does not ensure an unaffected nor does it exclude the possibility of other chromosomal abnormalities or defects which are not a part of these tests. An uninformative result may be reported, the causes of which may include, but are not limited to, insufficient sequencing coverage, noise or artifacts in the region, amplification or sequencing bias, or insufficient fraction. These tests are not intended to identify pregnancies at risk for neural tube defects or ventral wall defects. Testing for whole chromosome abnormalities (including sex chromosomes) and for subchromosomal abnormalities could lead to the potential discovery of both and maternal genomic abnormalities that could have major, minor, or no, clinical significance. Evaluating the significance of a positive or a non-reportable result may involve both invasive testing and additional studies on the mother. Such investigations may lead to a diagnosis of maternal chromosomal or subchromosomal abnormalities, which on occasion may be associated with benign or malignant maternal neoplasms. These tests may not accurately identify triploidy, balanced rearrangements, or the precise location of subchromosomal duplications or deletions; these may be detected by diagnosis with CVS or amniocentesis. The ability to report results may be impacted by maternal BMI, maternal weight, maternal systemic lupus erythematosus (SLE) and/or by certain pharmaceutical agents such as low molecular weight heparin (for example: Lovenox(R), Xaparin(R), Clexane(R) and Fragmin(R)). Performed By: #### M AT21 #### [facility] CLIA [id number] [address] [place] [address] Monosomy X risk Dosage of chromosome-speci fic cfDNA Ql (Plasma cell-free+WBC DNA) [Interp] Not detected Normal [facility] Comment on above: Order Comment: Specimen Type: BLOOD SPEC IMEN Ordering Facility: [facility] Address: [address] [place] [address] Performed By: #### M AT21 #### [facility] CLIA [id number] [address] [place] [address] NEGATIVE PREDICTIVE VALUE Note Normal [facility] Comment on above: Order Comment: Specimen Type: BLOOD SPEC IMEN Ordering Facility: [facility] Address: [address] [place] [address] Result Comment: The Negative Predictive Value (NPV) for trisomy 21, 18, and 13 is greater than 99%. The NPV for SCA and ESS cannot be calculated as SCA and ESS are only reported when an abnormality is detected. Performed By: #### M AT21 #### [facility] CLIA [id number] [address] [place] [address] NOTE Comment Normal [facility] Comment on above: Order Comment: Specimen Type: BLOOD SPEC IMEN Ordering Facility: [facility] Address: [address] [place] [address] Result Comment: See Notes [employer]. is a subsidiary of [employer], using the brand [email or web address]. This test was developed and its performance characteristics determined by [employer]. It has not been cleared or approved by the Food and Drug Administration. This laboratory is certified under the Clinical Laboratory Improvement Amendments (CLIA) as qualified to perform high complexity clinical laboratory testing and accredited by the [employer] (CAP). If there is future clinical need for adding MaterniT GENOME testing, this specimen will be available until term. [facility] samples will not be retained beyond 60 days. [facility] patients will have to send a new sample for re-sequencing ([facility] Test Code: [id number]). Performed By: #### M AT21 #### [facility] [id number] [address] [place] [address] PERFORMANCE CHARACTERISTICS Note Normal [facility] Comment on above: Order Comment: Specimen Type: BLOOD SPEC IMEN Ordering Facility: [facility] Address: [address] [place] [address] Result Comment: ! Sex ! Accuracy: 99.4% ! ! ! ! Region (associated syndrome) ! Est. Sens# ! Est. Spec ! ! ! ! Trisomy 21 (Down Syndrome) ! 99.1% ! 99.9% ! ! ! ! Trisomy 18 (Bellamy Syndrome) ! >99.9% ! 99.6% ! ! ! ! Trisomy 13 (Patau Syndrome) ! 91.7% ! 99.7% ! ! ! ! Sex Chromosome Aneuploidies## ! 96.2% ! 99.7% ! ! ! * As reported in ISCA database nstd37 [https://www.ncbi.nlm.nih.gov/dbvar/studies/nstd37/ ] # Estimated Sensitivity. Sensitivity estimated across the observed size distribution of each syndrome [per ISCA database nstd37] and across the range of fractions observed in routine clinical NIPT. Actual sensitivity can also be influenced by other factors such as the size of the event, total sequence counts, amplification bias, or sequence bias. ## Scott gestation only. Performed By: #### M AT21 #### [facility] CLIA [id number] [address] [place] [address] POSITIVE PREDICTIVE VALUE N/A Normal [facility] Comment on above: Order Comment: Specimen Type: BLOOD SPEC IMEN Ordering Facility: [facility] Address: [address] [place] [address] Performed By: #### M AT21 #### [facility] CLIA [id number] [address] [place] [address] Reference Lab Test Method Comment Normal [facility] Comment on above: Order Comment: Specimen Type: BLOOD SPEC IMEN Ordering Facility: [facility] Address: [address] [place] [address] Result Comment: See Notes Circulating cell-free DNA was purified from the plasma component of maternal blood. The extracted DNA was then converted into a genomic DNA library for aneuploidy analysis of chromosomes 21, 18, and 13 via next generation sequencing.[1] Optional findings based on the test order include sex chromosome aneuploidy (SCA)[2], and enhanced sequencing series (ESS)[3], which will only be reported on as an additional finding when an abnormality is detected. SCA testing includes information on X and Y representation, while ESS testing includes deletions in selected regions (22q, 15q, 11q, 8q, 5p, 4p, 1p) and trisomy of chromosomes 16 and 22. Performed By: #### M AT21 #### [facility] CLIA [id number] [address] [place] [address] Sex Dosage of chromosome-speci fic cfDNA Nom (cfDNA) Comment Normal [facility] Comment on above: Order Comment: Specimen Type: BLOOD SPEC IMEN Ordering Facility: [facility] Address: [address] [place] [address] Result Comment: Cons istent with Male Performed By: #### M AT21 #### [facility] CLIA [id number] [address] [place] [address] Test performance information Max (Unsp spec) Comment Normal [facility] Comment on above: Order Comment: Specimen Type: BLOOD SPEC IMEN Ordering Facility: [facility] Address: [address] [place] [address] Result Comment: The performance characteristics of the MaterniT(R) 21 PLUS laboratory-developed test (LDT) have been determined in a clinical validation study with women at increased risk for chromosomal aneuploidy.[1-4] Performed By: #### M AT21 #### [facility] CLIA [id number] [address] [place] [address] Trisomy 13 risk Dosage of chromosome-speci fic cfDNA Ql (cfDNA) [Interp] Negative Normal [facility] Comment on above: Order Comment: Specimen Type: BLOOD SPEC IMEN Ordering Facility: [facility] Address: [address] [place] [address] Performed By: #### M AT21 #### [facility] CLIA [id number] [address] [place] [address] Trisomy 18 risk Dosage of chromosome-speci fic cfDNA Ql (Plasma cell-free+WBC DNA) [Interp] Negative Normal [facility] Comment on above: Order Comment: Specimen Type: BLOOD SPEC IMEN Ordering Facility: [facility] Address: [address] [place] [address] Performed By: #### M AT21 #### [facility] CLIA [id number] [address] [place] [address], [place] [address] RUBELLA IGG ANTIBODYon 09-11 RUBELLA IGG AB, QUAL Positive Normal Positive [facility] Comment on above: Order Comment: Specimen Type: BLOOD SPEC IMEN Ordering Facility: [facility] Address: [address] [place] [address] Result Comment: The result suggests recent or past exposure to Rubella virus or history of Rubella vaccination. Positive result may also be seen due to presence of passively-transferred antibodies. Please correlate with patient's history. Performed By: #### 5 7021-8 #### [facility] CLIA [id number] [address] [place] [address] [place] Reagin and Treponema pallidu m IgG and IgM [Interp]on 09-11-2024 T. pallidum IgG+IgM IA Ql (S) Non-Reactive Normal Nonreactive [facility] Comment on above: Order Comment: Specimen Type: BLOOD SPEC IMEN Ordering Facility: [facility] Address: [address] [place] [address] Performed By: #### 5 7021-8 #### [facility] CLIA [id number] [address] [place] [address] [place] Reagin+T pallidum IgG+IgM Se rPl-Impon 09-11-2024 Reagin and Treponema pallidum IgG and IgM [Interp] Cannot exclude recent Treponemal infection if specimen collected within 7-10 days after appearance of suspect lesions or 2-3 weeks after an exposure. Clinical correlation is required. Normal [facility] Comment on above: Order Comment: Specimen Type: BLOOD SPEC IMEN Ordering Facility: [facility] Address: [address] [place] [address] Performed By: #### 5 7021-8 #### [facility] CLIA [id number] [address] [place] [address] [place] TYPE + SCREEN PRENATALon ABO A Normal [facility] Comment on above: Order Comment: Specimen Type: BLOOD SPEC IMEN Ordering Facility: [facility] Address: [address] [place], [place] [address] Performed By: #### M AT21 #### [facility] CLIA [id number] [address] [place] [address] Rh Nom (Bld) Negative Normal [facility] Comment on above: Order Comment: Specimen Type: BLOOD SPEC IMEN Ordering Facility: [facility] Address: [address] [place] [address] Performed By: #### M AT21 #### [facility] CLIA [id number] [address] [place] [address] TYPE AND SCREEN EXPIRATION 09/14/2024 23:59 Normal [facility] Comment on above: Order Comment: Specimen Type: BLOOD SPEC IMEN Ordering Facility: [facility] Address: [address] [place] [address] Performed By: #### M AT21 #### [facility] CLIA [id number] [address] [place] [address] CNOVon 08-15-2024 CNOV Office Visit (WSTR ) VAL RUIZ ([id number]) 2000 F Date Time Provider Department 08/15/24 2:15 PM JUNE CORONEL [facility] During your visit today, we recorded the following information about you: Temperature Pulse Respiration Blood pressure 97.3 degrees 80/minute 18/minute 122/78 Weight 76.5 kg June Coronel APRN.CNP 08/15/2024 2:26 PM Signed This note was created using NoteWriter. Subjective Val N Ruiz is a 23 year old female. HPI Patient complains of 1 week of cough congestion and sinus pain and pressure consistent with previous sinus infections. She also notes 3 days of purulent drainage from bilateral eyes. Patient notes that she is currently due March 17, 2025. Review of Systems HENT: Positive for congestion, sinus pressure and sinus pain. Eyes: Positive for discharge. Respiratory: Positive for cough. Objective BP 122/78 Pulse 80 Temp 36.3 ?C (97.3 ?F) (Tympanic) Resp 18 Wt 76.5 kg (168 lb 10.4 oz) LMP 06/10/2024 SpO2 98% BMI 34.06 kg/m? Physical Exam Vitals and nursing note reviewed. Constitutional: General: She is not in acute distress. Appearance: Normal appearance. She is not ill-appearing. HENT: Head: Normocephalic. Mouth/Throat: Mouth: Mucous membranes are moist. Eyes: General: Right eye: Discharge present. Left eye: Discharge present. Conjunctiva/sclera: Conjunctivae normal. Cardiovascular: Rate and Rhythm: Normal rate and regular rhythm. Pulmonary: Effort: Pulmonary effort is normal. Breath sounds: Normal breath sounds. Musculoskeletal: General: Normal range of motion. Cervical back: Normal range of motion. Skin: General: Skin is warm and dry. Neurological: General: No focal deficit present. Mental Status: She is alert. Psychiatric: Mood and Affect: Mood normal. Behavior: Behavior normal. Assessment and Plan ASSESSMENT/PLAN: 1. Bacterial sinusitis - ICD9: 473.9, 041.9, ICD10: J32.9, B96.89 (primary diagnosis) - Will begin treatment with as per antibiotic as written, see orders - Follow up in one week if symptoms persist or worsen. - - AMOXICILLIN 875 MG-POTASSIUM CLAVULANATE 125 MG TABLET 2. Bacterial conjunctivitis - ICD9: 372.39, 041.9, ICD10: H10.9 - see medication orders - course and contagiousness issues discussed, including hand washing. - Instructed to call if high fever, development of periorbital redness or swelling, eye pain, visual changes, concerns or if symptoms persist. - POLYMYXIN B SULFATE 10,000 UNIT-TRIMETHOPRIM 1 MG/ML EYE DROPS June Coronel APRN.ENVIRONMENTAL SERVICES SPECIALIST Allergies As of Date: 08/15/2024 Noted Allergy Reaction CEPHALEXIN 05/01/2022 2 - Rash Date Reviewed: 08/15/2024 Reviewed by: June Coronel APRN.ENVIRONMENTAL SERVICES SPECIALIST - Fully Assessed Reason for Visit: Cough [28] Cmt: Cough, congestion x 1 week and goopy eyes x 3 days Primary Visit Diagnosis:Bacterial sinusitis [J32.9, B96.89] Other Visit Diagnosis:Bacterial conjunctivitis [H10.9] Order(s):amoxicillin-clavulana te potassium (AUGMENTIN) 875-125 mg per tabletTake 1 tablet by mouth two times a day for 5 days.Disp: 10 tabletRfl: 0 trimethoprim-polymyxin (POLYTRIM) 10,000 unit- 1 mg/mL ophthalmic solutionUse 1 Drop in both eyes every 4 hours for 7 days.Disp: 10 mLRfl: 0 Prescriptions as of 08/15/2024 - amoxicillin-clavulanate potassium (AUGMENTIN) 875-125 mg per tablet Take 1 tablet by mouth two times a day for 5 days. - trimethoprim-polymyxin (POLYTRIM) 10,000 unit- 1 mg/mL ophthalmic solution Use 1 Drop in both eyes every 4 hours for 7 days. - fluticasone (FLONASE) 50 mcg/actuation nasal spray Use 2 Sprays in each nostril once daily. Rinse mouth after use. - aspirin, enteric coated (ECOTRIN LOW STRENGTH) 81 mg EC tablet Take 1 tablet by mouth once daily. - citalopram (CELEXA) 20 mg tablet Take 20 mg by mouth once daily. - no115/iron/folic acid ( 19 ORAL) Take 1 tablet by mouth once daily. - albuterol HFA (PROVENTIL HFA, VENTOLIN HFA) 90 mcg/actuation inhaler Inhale 2 Puffs as instructed every 4 hours as needed for wheezing/shortness of breath. - QUEtiapine (SEROQUEL) 25 mg tablet Problem List As Of Date 08/15/2024 Noted Resolved Depression, major, recurrent, moderate (HCC) [F*07/11/2024 Generalized anxiety disorder [F41.1] 07/11/2024 Bipolar 1 disorder, mixed (HCC) [F31.60] 08/03/2024 Asthma [J45.909] Obesity during [O99.210] 08/03/2024 Encounter for supervision of high risk pregnanc*08/03/2024 History of delivery [Z98.891] 08/03/2024 Anxiety [F41.9] 08/03/2024 History of gestational diabetes mellitus (GDM) *08/03/2024 Prescriptions ordered this encounter Disp Refills Start End AMOXICILLIN 875 MG-POTASSIUM CLAVULA* 10 t* 0 08/15/2024 08/20/2024 Route: ORAL Sig: Take 1 tablet by mouth two times a day for 5 days. POLYMYXIN B SULFATE 10,000 UNIT-TRIM* 10 mL 0 08/15/2024 08/22/2024 Rou (more content not included)... Normal [facility] CNOVon 08-10-2024 CNOV Office Visit (UCWSTR ) VAL RUIZ ([id number]) 2000 F Date Time Provider Department 08/10/24 12:30 PM YONG MEDEROS [facility] During your visit today, we recorded the following information about you: Temperature Pulse Respiration Blood pressure 98.1 degrees 90/minute 21/minute 118/70 Weight 78.4 kg Yong Mederos APRN.ENVIRONMENTAL SERVICES SPECIALIST 08/10/2024 1:22 PM Signed Subjective HPI HPI Val Albert Sara is a 23 year old female who presents today for CC of cough, congestion, sinus pressure. This started 3 days ago. Has tried otc medication for relief. Symptoms are worsened by nothing. Risk factors sick exposures at work. . .Patient presents with: Cough: Congestion, sinus pressure x 3 days PAST MEDICAL HISTORY Diagnosis Date Asthma Bipolar PAST SURGICAL HISTORY Procedure Laterality Date SECTION HX 07/08/2020 primary d/t Gestational diabetes- suspected LGA TONSILLECTOMY AND ADENOIDECTOMY 2006 ALLERGIES Cephalexin MEDICATIONS aspirin, enteric coated (ECOTRIN LOW STRENGTH) 81 mg EC tablet Take 1 tablet by mouth once daily. citalopram (CELEXA) 20 mg tablet Take 20 mg by mouth once daily. no115/iron/folic acid ( 19 ORAL) Take 1 tablet by mouth once daily. albuterol HFA (PROVENTIL HFA, VENTOLIN HFA) 90 mcg/actuation inhaler Inhale 2 Puffs as instructed every 4 hours as needed for wheezing/shortness of breath. QUEtiapine (SEROQUEL) 25 mg tablet (Patient not taking: Reported on 08/10/2024) FAMILY HISTORY Problem Relation Age of Onset No Known Problems Sister No Known Problems Brother Diabetes Maternal Grandfather Social History Tobacco Use Smoking status: Never Smokeless tobacco: Never Vaping Use Vaping status: Former Substance Use Topics Alcohol use: Not Currently Drug use: Never Review of Systems Constitutional: Negative for fever. HENT: Positive for congestion. Negative for ear pain, nosebleeds and sore throat. Respiratory: Positive for cough. Negative for shortness of breath and wheezing. Cardiovascular: Negative for chest pain. Musculoskeletal: Negative for neck pain. Skin: Negative for itching and rash. Objective Blood pressure 118/70, pulse 90, temperature 36.7 ?C (98.1 ?F), resp. rate 21, weight 78.4 kg (172 lb 13.5 oz), last menstrual period 06/10/2024, SpO2 96%. Physical Exam Constitutional: General: She is not in acute distress. Appearance: She is not toxic-appearing or diaphoretic. HENT: Head: Normocephalic and atraumatic. Right Ear: Hearing, tympanic membrane, ear canal and external ear normal. Left Ear: Hearing, tympanic membrane, ear canal and external ear normal. Nose: Nose normal. Mouth/Throat: Pharynx: Uvula midline. No pharyngeal swelling, oropharyngeal exudate, posterior oropharyngeal erythema or uvula swelling. Eyes: General: Lids are normal. No scleral icterus. Right eye: No discharge. Left eye: No discharge. Conjunctiva/sclera: Conjunctivae normal. Pupils: Pupils are equal, round, and reactive to light. Neck: Trachea: Trachea normal. Cardiovascular: Rate and Rhythm: Normal rate and regular rhythm. Heart sounds: Normal heart sounds. Pulmonary: Effort: Pulmonary effort is normal. Breath sounds: Normal breath sounds. Musculoskeletal: Cervical back: Normal range of motion and neck supple. Lymphadenopathy: Cervical: No cervical adenopathy. Right cervical: No superficial cervical adenopathy. Left cervical: No superficial cervical adenopathy. Skin: Findings: No rash. Neurological: Mental Status: She is alert and oriented to person, place, and time. ASSESSMENT/PLAN: 1. URI, acute - ICD9: 465.9, ICD10: J06.9 (primary diagnosis) - Discussed viral etiology and rationale for treatment. - Symptomatic treatment with prn analgesia - Supportive care with fluids and rest - Follow up in 3-5 days if symptoms persist or sooner if worsening of symptoms - FLUTICASONE PROPIONATE 50 MCG/ACTUATION NASAL SPRAY,SUSPENSION 2. Acute cough - ICD9: 786.2, ICD10: R05.1 - XR CHEST 2V FRONTAL/LAT IMPRESSION: No acute radiographic abnormality. Dictated by : MD Yong DOZIER, JOSE.ENVIRONMENTAL SERVICES SPECIALIST Allergies As of Date: 08/10/2024 Noted Allergy Reaction CEPHALEXIN 05/01/2022 2 - Rash Date Reviewed: 08/10/2024 Reviewed by: Emerald Culver MA - Fully Assessed Reason for Visit: Cough [28] Cmt: Congestion, sinus pressure x 3 days Primary Visit Diagnosis:URI, acute [J06.9] Other Visit Diagnosis:Acute cough [R05.1] Order(s):XR CHEST 2V FRONTAL/LAT [[id number]] Order #: [id number]. #:[id number] 3-CCF fluticasone (FLONASE) 50 mcg/actuation nasal sprayUse 2 Sprays in each nostril once daily. Rinse mouth after use.Disp: 1 EachRfl: 0 Prescriptions as of 08/10/2024 - fluticasone (FLONASE) 50 mcg/actuation nasal spray Use 2 Sprays in each nostril once daily. Rinse mouth after (more content not included)... Normal [facility] XR CHEST 2V FRONTAL/LATon XR CHEST 2V FRONTAL/LAT * * *Final Report* * * DATE OF EXAM: Aug 10 2024 12:45PM WOX [id number] - XR CHEST 2V FRONTAL/LAT / PROCEDURE REASON: Acute cough * * * * Physician Interpretation * * * * EXAMINATION: CHEST RADIOGRAPH (2 VIEW FRONTAL and LATERAL) CLINICAL HISTORY: Acute cough MQ: XC2_6 EXAM DATE/TIME: 08/10/2024 12:45 PM COMPARISON: Chest x-ray dated 06/19/2024 RESULT: Lines, tubes, and devices: None. Lungs and pleura: No consolidation. No lung mass. No pleural effusion. No pneumothorax. Cardiomediastinal silhouette: Normal cardiomediastinal silhouette. Bones and soft tissues: Unremarkable. IMPRESSION: No acute radiographic abnormality. Pearl Maker: [facility] Transcribe Date/Time: Aug 10 2024 12:46P Dictated by : NORA JIMENEZ MD This examination was interpreted and the report reviewed and electronically signed by: NORA JIMENEZ MD on Aug 10 2024 12:46PM EST [id number] Normal [facility] XR Chest PA and Lateralon Radiology Study observation (narrative) [facility] IMPRESSION: No acute radiographic abnormality. Pearl Maker: [facility] Transcribe Date/Time: Aug 10 2024 12:46P Dictated by : NORA JIMENEZ MD This examination was interpreted and the report reviewed and electronically signed by: NORA JIMENEZ MD on Aug 10 2024 12:46PM EST DIVISION OF RADIOLOGY * * *Final Report* * * DATE OF EXAM: Aug 10 2024 12:45PM WOX [id number] - XR CHEST 2V FRONTAL/LAT / PROCEDURE REASON: Acute cough * * * * Physician Interpretation * * * * EXAMINATION: CHEST RADIOGRAPH (2 VIEW FRONTAL & LATERAL) CLINICAL HISTORY: Acute cough MQ: XC2_6 EXAM DATE/TIME: 08/10/2024 12:45 PM COMPARISON: Chest x-ray dated 06/19/2024 RESULT: Lines, tubes, and devices: None. Lungs and pleura: No consolidation. No lung mass. No pleural effusion. No pneumothorax. Cardiomediastinal silhouette: Normal cardiomediastinal silhouette. Bones and soft tissues: Unremarkable. DIVISION OF RADIOLOGY Provider, [facility] - 08/10/2024 * * *Final Report* * * DATE OF EXAM: Aug 10 2024 12:45PM WOX 5291 - XR CHEST 2V FRONTAL/LAT / PROCEDURE REASON: Acute cough * * * * Physician Interpretation * * * * EXAMINATION: CHEST RADIOGRAPH (2 VIEW FRONTAL & LATERAL) CLINICAL HISTORY: Acute cough MQ: XC2_6 EXAM DATE/TIME: 08/10/2024 12:45 PM COMPARISON: Chest x-ray dated 06/19/2024 RESULT: Lines, tubes, and devices: None. Lungs and pleura: No consolidation. No lung mass. No pleural effusion. No pneumothorax. Cardiomediastinal silhouette: Normal cardiomediastinal silhouette. Bones and soft tissues: Unremarkable. IMPRESSION IMPRESSION: No acute radiographic abnormality. Pearl Maker: [facility] Transcribe Date/Time: Aug 10 2024 12:46P Dictated by : NORA JIMENEZ MD This examination was interpreted and the report reviewed and electronically signed by: NORA JIMENEZ MD on Aug 10 2024 12:46PM EST [facility] XR Chest PA and LateralOrder ed By: [facility]cf Provider on 08-10-2024 [facility] 08-04-2024 [facility] VAL RUIZ ([id number]) 2000 F Date Time Provider Department 08/04/24 NURSE TOMATO PASTE MAKER [facility] [place] [facility] During your visit today, we recorded the following information about you: Chapito Ventura, RN 08/04/2024 8:57 AM Signed 1st risk assessment form submitted 08/04/24 Chapito Ventura RN Allergies As of Date: 08/04/2024 Noted Allergy Reaction CEPHALEXIN 05/01/2022 2 - Rash Date Reviewed: 08/03/2024 Reviewed by: Tracey Godoy LPN - Fully Assessed Reason for Visit: PRAF [4193] Prescriptions as of 08/04/2024 - aspirin, enteric coated (ECOTRIN LOW STRENGTH) 81 mg EC tablet Take 1 tablet by mouth once daily. - citalopram (CELEXA) 20 mg tablet Take 20 mg by mouth once daily. - no115/iron/folic acid ( 19 ORAL) Take 1 tablet by mouth once daily. - albuterol HFA (PROVENTIL HFA, VENTOLIN HFA) 90 mcg/actuation inhaler Inhale 2 Puffs as instructed every 4 hours as needed for wheezing/shortness of breath. - QUEtiapine (SEROQUEL) 25 mg tablet Problem List As Of Date 08/04/2024 Noted Resolved Depression, major, recurrent, moderate (HCC) [F*07/11/2024 Generalized anxiety disorder [F41.1] 07/11/2024 Bipolar 1 disorder, mixed (HCC) [F31.60] 08/03/2024 Asthma [J45.909] Obesity during [O99.210] 08/03/2024 Encounter for supervision of high risk pregnanc*08/03/2024 History of delivery [Z98.891] 08/03/2024 Anxiety [F41.9] 08/03/2024 History of gestational diabetes mellitus (GDM) *08/03/2024 Encounter Status:Closed by CHAPITO VENTURA on 08/04/24 Normal [facility] Bacteria Ur Culton Bacteria identified Cx Nom (U) ORGANISM ID: 1 10,000 -<50,000 CFU/ml Normal urogenital oly Normal [facility] Comment on above: Performed By: #### 630-4 ####[facility] [id number] [place] [address] [place] C. trachomatis+N. gonorrhoea e DNA [facility]ISE+probe Ql (Unsp spec)on 08-03-2024 C. trachomatis rRNA [facility]ISE+probe Ql (Unsp spec) Negative Normal Negative for Chlamydia trachomatis by amplificaton [facility] Comment on above: Order Comment: Specimen Type: SWABOrderi ng Facility: [facility] Address: [address] [place] [address] Performed By: #### 3 6902-5 ####[facility] [id number] [place] [address] [place] N. gonorrhoeae rRNA [facility]ISE+probe Ql (Unsp spec) Negative Normal Negative for Neisseria gonorrhoeae by amplification [facility] Comment on above: Order Comment: Specimen Type: SWABOrderi ng Facility: [facility] Address: [address] [place] [address] Performed By: #### 3 6902-5 ####[facility]IA [id number] [place] [address] [place] PAP TESTon 08-03-2024 ADEQUACY Normal [facility] Comment on above: Order Comment: Specimen Type: FLUID SPEC IMEN Ordering Facility: [facility] Address: [address] [place] [address] Result Comment: Sati sfactory for interpretation. No endocervical component Performed By: #### L [id number] #### [facility] CLIA [id number] [address] [place] [address] [place] CASE REPORT Normal [facility] Comment on above: Order Comment: Specimen Type: FLUID SPEC IMEN Ordering Facility: [facility] Address: [address] [place] [address] Result Comment: Gyne cologic Cytology Report Case: [id number] Authorizing Provider: Kati Rolle APRN.CNM Collected: 08/03/2024 02:04 PM Ordering Location: OB/Gynecology Received: 08/03/2024 04:49 PM First Screen: Millie Beth, CT, ASCP Specimen: Pap Test, ThinPrep, Cervix Performed By: #### L [id number] #### [facility] CLIA [id number] [address] [place] [address] [place] CLINICAL HISTORY, CYTOLOGY, SPICE ROOM WORKER (Indicate Weeks) Normal [facility] Comment on above: Order Comment: Specimen Type: FLUID SPEC IMEN Ordering Facility: [facility] Address: [address] [place] [address] Performed By: #### L [id number] #### [facility] CLIA [id number] [address] [place] [address] [place] FINAL PERFORMING LAB Normal [facility] Comment on above: Order Comment: Specimen Type: FLUID SPEC IMEN Ordering Facility: [facility] Address: [address] [place] [address] Result Comment: Tech nical component, driver helper screening performed at [facility], [address] [place] [id number] CLIA# [id number] Diagnostic interpretation performed at [facility], [address] [place], [place] [id number] CLIA# [id number] Medical Laboratory Technical Officer: Bonifacio Trujillo M.D. Performed By: #### L [id number] #### [facility] CLIA [id number] [address] [place] [address] [place] INTERPRETATION, CYTOLOGY, SPICE ROOM WORKER Normal [facility] Comment on above: Order Comment: Specimen Type: FLUID SPEC IMEN Ordering Facility: [facility] Address: [address] [place] [address] Result Comment: Nega tive for intraepithelial lesion or malignancy. Performed By: #### L [id number] #### [facility] CLIA [id number] [address] [place] [address] [place] LMP 06/10/2024 Normal [facility] Comment on above: Order Comment: Specimen Type: FLUID SPEC IMEN Ordering Facility: [facility] Address: [address] [place] [address] Performed By: #### L [id number] #### [facility] CLIA [id number] [address] [place] [address] [place] PAP DISCLAIMER COMMENT The Pap Smear is a screening test for cervical cancer. False negative results occur with all screening tests, emphasizing the need for rescreening at recommended intervals, and clinical correlation. [facility] Comment on above: Order Comment: Specimen Type: FLUID SPEC IMEN Ordering Facility: [facility] Address: [address] [place] [address] Performed By: #### L [id number] #### [facility] CLIA [id number] [address] [place] [address] [place] PAP SAFETY TECH COMMENT This specimen has been analyzed by the ThinPrep Imaging System, an automated imaging and review system, which assists the laboratory in evaluating cells on ThinPrep Pap tests. Following automated imaging, selected santana from every slide are reviewed by a driver helper. Normal [facility] Comment on above: Order Comment: Specimen Type: FLUID SPEC IMEN Ordering Facility: [facility] Address: [address] [place] [address] Performed By: #### L [id number] #### [facility] CLIA [id number] [address] [place] [address] [place] POC EXTRACTOR MACHINE OPERATOR ULTRASOUNDon 08-03-20 24 Indication Viability; confirm cardiac activity Impression Single intrauterine gestational sac, CRL is appropriate for clinical dates, corresponding to DEEP cardiac activity is visualized Recommendations Follow up for NT scan if desired Method Transvaginal ultrasound examination Scott . Number of embryos: 1 Dating LMP on: 06/10/2024 GA by LMP 7 w + 5 d DEEP by LMP: 03/17/2025 Ultrasound examination on: 08/03/2024 GA by U/S based upon: CRL GA by U/S 7 w + 1 d DEEP by U/S: 03/21/2025 Assigned: based on the LMP, selected on 08/03/2024 Assigned GA 7 w + 5 d Assigned DEEP: 03/17/2025 Biometry Standard CRL 10.0 mm 7w 1d 2% Hadlock Assessment Gestational sac: visualized Location: intrauterine Yolk sac: visualized Embryo: visualized CRL 10.0 mm 7w 1d 2% Hadlock Performed By: Kati Rolle CNM Read By: Kati Rolle CNM MATERNAL MEDICINE [facility] Radiology Study observation (narrative) [facility] CNOVon 07-24-2024 CNOV Office Visit (UCWSTR ) VAL RUIZ ([id number]) 2000 F Date Time Provider Department 07/24/24 11:00 AM ARLEEN ARCOS [facility] During your visit today, we recorded the following information about you: Temperature Pulse Respiration Blood pressure 97.3 degrees 84/minute 22/minute 112/58 Weight Last Period 78.9 kg 06/15/24 Arleen Arcos, JOSE.[facility] [place] 07/24/2024 11:30 AM Signed CC: Patient presents with: Cough: Chest congestion, nasal congestion, fever, sinus pressure, sore throat x 1 week HPI: Val Ruiz is a 23 year old female who presents to the office with complaint of chest congestion, head congestion, cough, nonproductive, and sinus symptoms for a week. Symptoms are worsening Associated symptoms includes facial pain/pressure. Denies fever, nausea, shortness of breath or pain in throat when swallowing vomiting , and diarrhea. Treatments tried include nothing so far. with no relief of symptoms. Sick contacts: unknown. History of asthma, frequent episodes of bronchitis, chronic bronchitis, bronchiectasis or COPD: No Smoker: No Seasonal/environmental allergies: No The ROS is otherwise negative. The patient's pmh, medications, allergies, and past visits are reviewed. PHYSICAL EXAM: BP 112/58 Pulse 84 Temp 36.3 ?C (97.3 ?F) Resp 22 Wt 78.9 kg (173 lb 15.1 oz) LMP 06/15/2024 (Exact Date) SpO2 100% General appearance: alert, cooperative, pleasant, in no acute distress Head: Normocephalic Eyes: EOM's intact, conjunctiva pink and moist, no icterus, sclera white, non-injected Ears: Right ear: External ear/canal- Normal, TM - clear with good landmarks. Left ear: External ear/canal- Normal, TM - clear with good landmarks Oropharynx:moist without lesions, No erythema, exudates or tonsillar hypertrophy. Heart: Negative. RRR without obvious murmur, gallop, or rubs. No ectopy. Lungs: clear to auscultation, without rales or wheeze, good air exchange PAST MEDICAL HISTORY Diagnosis Date Bipolar PAST SURGICAL HISTORY Procedure Laterality Date SECTION HX TONSILLECTOMY AND ADENOIDECTOMY ALLERGIES Cephalexin MEDICATIONS no115/iron/folic acid ( 19 ORAL) Take 1 tablet by mouth once daily. albuterol HFA (PROVENTIL HFA, VENTOLIN HFA) 90 mcg/actuation inhaler Inhale 2 Puffs as instructed every 4 hours as needed for wheezing/shortness of breath. QUEtiapine (SEROQUEL) 25 mg tablet amoxicillin-clavulanate potassium (AUGMENTIN) 875-125 mg per tablet Take 1 tablet by mouth two times a day for 7 days. DULoxetine (CYMBALTA) 60 mg capsule Take 60 mg by mouth once daily. (Patient not taking: Reported on 07/24/2024) No family history on file. Social History Tobacco Use Smoking status: Never Smokeless tobacco: Never Vaping Use Vaping status: Former Substance Use Topics Alcohol use: Not Currently Drug use: Not Currently ASSESSMENT/PLAN: 1. Rhinosinusitis - ICD9: 473.9, ICD10: J32.9 - AMOXICILLIN 875 MG-POTASSIUM CLAVULANATE 125 MG TABLET Prescription instructions reviewed with patient as applicable. Potential red flag symptoms discussed with the patient. Reviewed appropriate action plan to take if red flag symptoms occur. Patient agreeable to treatment plan. Arleen Arcos APRN.ENVIRONMENTAL SERVICES SPECIALIST Allergies As of Date: 07/24/2024 Noted Allergy Reaction CEPHALEXIN 05/01/2022 2 - Rash Date Reviewed: 07/24/2024 Reviewed by: Abbey Soria LPN - Fully Assessed Reason for Visit: Cough [28] Cmt: Chest congestion, nasal congestion, fever, sinus pressure, sore throat x 1 week Primary Visit Diagnosis:Rhinosinusitis [J32.9] Order(s):amoxicillin-clavulana te potassium (AUGMENTIN) 875-125 mg per tabletTake 1 tablet by mouth two times a day for 7 days.Disp: 14 tabletRfl: 0 Prescriptions as of 07/24/2024 - no115/iron/folic acid ( 19 ORAL) Take 1 tablet by mouth once daily. - amoxicillin-clavulanate potassium (AUGMENTIN) 875-125 mg per tablet Take 1 tablet by mouth two times a day for 7 days. - DULoxetine (CYMBALTA) 60 mg capsule Take 60 mg by mouth once daily. - albuterol HFA (PROVENTIL HFA, VENTOLIN HFA) 90 mcg/actuation inhaler Inhale 2 Puffs as instructed every 4 hours as needed for wheezing/shortness of breath. - QUEtiapine (SEROQUEL) 25 mg tablet Problem List As Of Date 07/24/2024 Noted Resolved Depression, major, recurrent, moderate (HCC) [F*07/11/2024 Generalized anxiety disorder [F41.1] 07/11/2024 Prescriptions ordered this encounter Disp Refills Start End AMOXICILLIN 875 MG-POTASSIUM CLAVULA* 14 t* 0 07/24/2024 07/31/2024 Route: ORAL Sig: Take 1 tablet by mouth two times a day for 7 days. Medications Discontinued During This Encounter Prescriptions - busPIRone (BUSPAR) 10 mg tablet (Discontinued) Reported on 03/23/2024 - fluticasone (FLONASE ALLERGY RELIEF) 50 mcg/actuation nasal spray (Discontinued) Reporte (more content not included)... Normal [facility] ED FACILITY CODING SUMMARYon 07-15-2024 ED FACILITY CODING SUMMARY Facility Coding Facility Coding Summary [address] [place] [address] [id number] 07/15/2024 Patient: VAL RUIZ Sex: Female : 2000 Age: 23y Providers: DIAGNOSTIC WORKUP Chief Complaint Principal Diagnosis ICD-10 Codes PROCEDURES Procedures from Providers: Procedures from Nurses/Facility: SUPPLIES ELEVEL This is a partial abstract of information documented in the full record. Solid Plasterer must use independent judgment in selecting codes. CPT copyright 2022 [employer]. All Rights Reserved. 1 of 1 Normal [facility] ED MED ADMINISTRATION DETAIL on 07-15-2024 ED MED ADMINISTRATION DETAIL Maternal Child Nurse Medication Administration Record [address] [place] [address] [id number] 07/15/2024 Patient: VAL RUIZ Sex: Female : 2000 Age: 23y MEASUREMENTS: Wt: 77.1 kg, Ht/Efrain: 58.0 in, BMI: 35.53 ALLERGIES: Keflex Medication Ordered Medication Administration Date/Time 1 of 1 Normal [facility] ED NURSES CLINICAL NOTEon ED NURSES CLINICAL NOTE Nurse Narrative Nurse Clinical Narrative [facility] [address] [place] [address] [phone] 07/15/2024 Patient: VAL RUIZ Sex: Female : 2000 Age: 23y Disposition: Left W/O Being Seen Disposition Decision Time: 16:44 07/15/2024 Departure Time: 16:44 07/15/2024 TRIAGE Arrived by private vehicle. Historian: patient. Triage time: 12:01 07/15/2024. Acuity: LEVEL 3. Chief Complaint: PELVIC PAIN and ABDOMINAL CRAMPS. Onset. (2 days ago). The patient has had cramping abdominal pain (2 days ago). No spotting, hematuria, abnormal bleeding, flank pain or fever. SEPSIS SCREEN: NEGATIVE. SIRS criteria negative. No possible sources of infection. -- 12:07 07/15/24 SHILPIT Bettina Johnson R.N. 12:06 07/15/24. BP: 117/70 MAP: 86. HR: 80. RR: 16. O2 saturation: 100% Temperature: 97.5 F. Pain level now 5/10. Describes the pain as (cramping). Constant. -- 12:07 07/15/24 SHERMAN Johnson R.N. Measurements: 12:05 07/15/24 Wt: 77.1 kg, Ht/Efrain: 58.0 in, BMI: 35.53 -- 12:05 07/15/24 SHERMAN Johnson R.N. Medications: DULoxetine 60 mg capsule,delayed release: 60 mg once a day . -- 12:04 07/15/24 SHERMAN Johnson R.N. SeroqueL 25 mg tablet: 25 mg once a day . -- 12:04 07/15/24 SHERMAN Johnson R.N. 1 of 3 Nurse Narrative Allergies: Keflex -- 12:02 07/15/24 SHERMAN Johnson R.N. Problems: Asthma -- 12:03 07/15/24 EDT Bettina Johnson R.N. gestional diabetes -- 12:03 07/15/24 EDT Bettina Johnson R.N. Bipolar Disorder -- 12:03 07/15/24 EDT Bettina Johnson R.N. ADDITIONAL SURGERIES: -- 12:03 07/15/24 EDT Bettina Johnson R.N. Tonsillectomy -- 12:04 07/15/24 EDT Bettina Johnson R.N. History 12:01 07/15/24. PAST MEDICAL HX: Immunizations: up-to-date. Last normal menstrual period- 06/10/24. 2. Para 1. Abortions 0. Sexual history - sexually active. Currently . SOCIAL HX: Smoker - current smoking amount unknown former smoker. No alcohol use or drug use. The patient has not traveled outside the [place] Infectious disease exposure: No infectious disease exposure. ABUSE ASSESSMENT: The patient answered yes to the question(s) Do you feel safe in your home? and no to the question(s) Are you afraid to go home?. Abuse denied. No suspicion of abuse. SELF HARM ASSESSMENT: Self harm assessment was performed. The patient answered no to the question(s) Have you recently felt down, depressed, or hopeless? and Do you have thoughts of harming or killing yourself?. FALL RISK ASSESSMENT: Fall risk assessment completed. No risk factors identified. -- 12:07 07/15/24 EDT Bettina Johnson R.N. Interventions 12:01 07/15/24. Advanced care plan (Full Code). -- 12:07 07/15/24 EDT Bettina Johnson R.N. 2 of 3 Nurse Narrative DISPOSITION / DISCHARGE Departure time: 16:44 07/15/2024. -- 17:00 07/15/24 EDT Bettina Johnson R.N. 16:44 07/15/24. The patient left the Emergency Department without being seen by a physician. -- 17:01 07/15/24 EDT Bettina Johnson R.N. (Electronically signed by Bettina Johnson R.N. 07/15/24 17:04:37 EDT) Generated by [facility] 3 of 3 [facility] ED ORDER SHEET (CPOE ONLY)on 07-15-2024 ED ORDER SHEET (CPOE ONLY) Order Sheet Order Sheet [address] [place] [address] [id number] 07/15/2024 Patient: VAL RUIZ Sex: Female : 2000 Age: 23y MEASUREMENTS: Wt: 77.1 kg, Ht/Efrain: 58.0 in, BMI: 35.53 ALLERGIES: Keflex MEDICATION/IV/DRIP/FLUID ORDERS Order Description Priority Entered Acknowledged Completed LAB ORDERS Order Description Priority Entered Acknowledged Collected Completed DIAGNOSTIC STUDY ORDERS Order Description Priority Entered Acknowledged Completed STAFF ORDERS Order Description Priority Entered Acknowledged Collected Completed 1 of 1 [facility] ED [facility] BILL 07-15-2024 ED [place] [address] [place] [address] [phone] 07/15/2024 Patient: VAL RUIZ Sex: Female : 2000 Age: 23y Item Professional Category Description Facility Code Code Quantity Fee Total Grand Total $0.00 1 of 1 [facility] ED VISIT SUMMARYon ED VISIT SUMMARY Visit Overview Visit Overview [address] [place] [address] [id number] 07/15/2024 Patient: VAL RUIZ Sex: Female : 2000 Age: 23y 07/15/2024 05:04 PM EDT ED Arrival:11:56 07/15/2024 EDT Status: Recent Travel:no Language:eng Adv Directive: Isolation Status: Ethnicity:N Fall Risk:no risk Infectious Disease Exposure:no Measurements:4'10 / 147.3 Self-Harm Status:risk Sepsis Screen:negative cm 170.0 lb / 77.1 kg Chief Complaint:ABDOMINAL CRAMPS, PELVIC PAIN, and (2 days ago) ALLERGIES Keflex HOME MEDICATIONS DULoxetine 60 mg capsule,delayed release: 60 mg once a day . SeroqueL 25 mg tablet: 25 mg once a day . PAST MEDICAL HISTORY / PROBLEMS Asthma 1 of 3 Visit Overview Bipolar Disorder Currently gestional diabetes Immunizations: up-to-date Last normal menstrual period- 06/10/24. 2. Para 1. Abortions 0. Sexual history - sexually active PAST SURGICAL HISTORY Tonsillectomy SOCIAL HISTORY Smoking status: No Alcohol use: No Drug use: No ED COURSE MEDICATIONS GIVEN IN EMERGENCY DEPARTMENT IV SITE INFORMATION INTAKE OUTPUT REASSESMENT (most recent) VITAL SIGNS First Vitals Last Vitals Temp 12:06 07/15/24 97.5 F Temp 12:06 07/15/24 97.5 F BP 12:06 07/15/24 117/70 BP 12:06 07/15/24 117/70 HR 12:06 07/15/24 80 HR 12:06 07/15/24 80 RR 12:06 07/15/24 16 RR 12:06 07/15/24 16 O2 Sat 12:06 07/15/24 100% O2 Sat 12:06 07/15/24 100% Pain 12:06 07/15/24 5 Pain 12:06 07/15/24 5 ETCO2 12:06 07/15/24 ETCO2 12:06 07/15/24 GCS 12:06 07/15/24 GCS 12:06 07/15/24 2 of 3 Visit Overview First Vitals Last Vitals RTS 12:06 07/15/24 RTS 12:06 07/15/24 PROCEDURES NURSING INTERVENTIONS LABS / STUDIES CLINICAL IMPRESSION 3 of 3 Normal [facility] CNOVon 07-11-2024 CNOV Office Visit (UCWSTR ) VAL RUIZ ([id number]) 2000 F Date Time Provider Department 07/11/24 11:00 AM SHU GOMEZ WSTR During your visit today, we recorded the following information about you: Temperature Pulse Respiration Blood pressure 97.7 degrees 80/minute 21/minute 110/72 Weight 76.4 kg Shu Gomez APRN.ENVIRONMENTAL SERVICES SPECIALIST 07/11/2024 12:21 PM Signed Subjective Val Ruiz is a 23 year old female who presents with a chief concern for confirmation. HPI Patient states she wants confirmation that she is . She reports that she takes medications for her depression and anxiety and will need to stop taking those meds. She took 2 tests at home which were positive. Her period is 4 days late. Patient has no other concerns at this time. Review of Systems Constitutional: Negative for fever and malaise/fatigue. HENT: Negative. Eyes: Negative. Respiratory: Negative. Cardiovascular: Negative. Gastrointestinal: Negative for abdominal pain, nausea and vomiting. Genitourinary: Negative. Musculoskeletal: Negative. Skin: Negative. Neurological: Negative. Psychiatric/Behavioral: Negative. PAST MEDICAL HISTORY Diagnosis Date - Bipolar PAST SURGICAL HISTORY Procedure Laterality Date - SECTION HX - TONSILLECTOMY AND ADENOIDECTOMY ALLERGIES Cephalexin MEDICATIONS - DULoxetine (CYMBALTA) 60 mg capsule Take 60 mg by mouth once daily. - albuterol HFA (PROVENTIL HFA, VENTOLIN HFA) 90 mcg/actuation inhaler Inhale 2 Puffs as instructed every 4 hours as needed for wheezing/shortness of breath. - MUCUS RELIEF ER 600 mg 12 hr tablet TAKE 1 TABLET BY MOUTH TWICE DAILY NEEDED FOR CONGESTION - QUEtiapine (SEROQUEL) 25 mg tablet - fluticasone (FLONASE ALLERGY RELIEF) 50 mcg/actuation nasal spray Use 1 [place] in each nostril once daily. (Patient not taking: Reported on 06/19/2024) - busPIRone (BUSPAR) 10 mg tablet TAKE 1 TABLET BY MOUTH THREE TIMES DAILY FOR ANXIETY (Patient not taking: Reported on 03/23/2024) - lamoTRIgine (LAMICTAL) 100 mg tablet (Patient not taking: Reported on 03/23/2024) No family history on file. Social History Tobacco Use - Smoking status: Never - Smokeless tobacco: Never Vaping Use - Vaping status: Former Substance Use Topics - Alcohol use: Not Currently - Drug use: Not Currently BP 110/72 Pulse 80 Temp 36.5 ?C (97.7 ?F) Resp 21 Wt 76.4 kg (168 lb 6.9 oz) LMP 06/15/2024 (Exact Date) SpO2 100% Objective Physical Exam Vitals and nursing note reviewed. Constitutional: Appearance: Normal appearance. HENT: Head: Normocephalic. Nose: Nose normal. Cardiovascular: Rate and Rhythm: Normal rate and regular rhythm. Pulses: Normal pulses. Heart sounds: Normal heart sounds. Pulmonary: Effort: Pulmonary effort is normal. Breath sounds: Normal breath sounds. Abdominal: General: There is no distension. Palpations: Abdomen is soft. Tenderness: There is no abdominal tenderness. Comments: Patient reports mild uterine cramping. Denies any vaginal bleeding, back pain, or abdominal pain. Musculoskeletal: General: Normal range of motion. Skin: General: Skin is warm. Neurological: General: No focal deficit present. Mental Status: She is alert. Psychiatric: Mood and Affect: Mood normal. Behavior: Behavior normal. ASSESSMENT/PLAN: 1. Missed period - ICD9: 626.4, ICD10: N92.6 (primary diagnosis) POSITIVE URINE HCG RESULT 2. Encounter for confirmation of test result with physical examination - ICD9: V72.40, ICD10: Z32.00 Discussed plan of care with patient. Patient advised to notify Dr. Sanders with [facility], the provider that prescribes her medications for depression and anxiety. Patient advised that she will need to wean off some of her medications due to risks during . Patient advised to schedule and appointment with an NEEDLE BAR MOLDER provider. Patient asks about mild uterine cramping and if this is normal. Patient advised that some uterine cramping may be normal post uterine implantation, advised on signs and symptoms to monitor for and when to seek emergency care. All patient's questions answered. Patient agreeable with plan and verbalizes understanding. Alexia Enriquez, Student CHILD ADOLESCENT CARE TEACHING PROVIDER (Physician/PA/ADVISORY SOFTWARE ENGINEER) NOTE OF PERSONAL INVOLVEMENT IN CARE: I have personally seen and examined the patient and performed the medical decision-making components. I have reviewed the Advanced Practice Registered Nurse (ADVISORY SOFTWARE ENGINEER) Student's documentation and verified the findings in the note as written. Any additions or changes are noted in bold/italics. Signature: Shu Gomez Date: 07/11/2024 Time: 12:19 PM Alexia Enriquez 07/11/2024 11:39 AM Addendum ASSESSMENT/PLAN: 1. Missed period - ICD9: 626.4, ICD10: N92.6 (primary diagnosis) POSITIVE URINE (more content not included)... Normal [facility] UA DIP,URINE HCG (POC)on Beta HCG ( test) Ql (U) Positive Abnormal Negative [facility] Comment on above: Location:[facility], [address], [place], [address] Interpretation and review of laboratory results Abnormal [facility] Frame Hand (POCT) Internal QC OK [facility] Location:[facility], [address] [facility], [place], [address] [facility] OF CARE [facility] CNOVon 06-19-2024 CNOV Office Visit (UCWSTR ) VAL RUIZ ([id number]) 2000 F Date Time Provider Department 06/19/24 11:00 AM HALEY BLACK WSTR During your visit today, we recorded the following information about you: Temperature Pulse Respiration Blood pressure 97.7 degrees 99/minute 18/minute 109/77 Weight Last Period 76 kg 06/15/24 Arleen Arcos APRN.ENVIRONMENTAL SERVICES SPECIALIST 06/19/2024 11:35 AM Signed CC: Patient presents with: Cough: Chest congestion, chest tightness in chest Fever: Headache, bodyaches x 2 days HPI: Val Ruiz is a 23 year old female who presents to the office with complaint of chest congestion, cough, productive, and fever for a few days. Symptoms are staying the same. Associated symptoms includes headache and body aches. Denies nausea, vomiting , and diarrhea. Treatments tried include nothing so far. with no relief of symptoms. Sick contacts: unknown. History of asthma, frequent episodes of bronchitis, chronic bronchitis, bronchiectasis or COPD: No Smoker: No Seasonal/environmental allergies: No The ROS is otherwise negative. The patient's pmh, medications, allergies, and past visits are reviewed. PHYSICAL EXAM: BP 109/77 Pulse 99 Temp 36.5 ?C (97.7 ?F) Resp 18 Wt 76 kg (167 lb 8.8 oz) LMP 06/15/2024 (Exact Date) SpO2 99% General appearance: alert, cooperative, pleasant, in no acute distress Head: Normocephalic Eyes: EOM's intact, conjunctiva pink and moist, no icterus, sclera white, non-injected Ears: Right ear: External ear/canal- Normal, TM - clear with good landmarks. Left ear: External ear/canal- Normal, TM - clear with good landmarks Oropharynx:moist without lesions, No erythema, exudates or tonsillar hypertrophy. Uvula midline Neck:supple and no adenopathy Heart: Negative. RRR without obvious murmur, gallop, or rubs. No ectopy. Lungs: clear to auscultation, without rales or wheeze, good air exchange Abdomen: soft non tended PAST MEDICAL HISTORY Diagnosis Date Bipolar PAST SURGICAL HISTORY Procedure Laterality Date SECTION HX TONSILLECTOMY AND ADENOIDECTOMY ALLERGIES Cephalexin MEDICATIONS DULoxetine (CYMBALTA) 60 mg capsule Take 60 mg by mouth once daily. albuterol HFA (PROVENTIL HFA, VENTOLIN HFA) 90 mcg/actuation inhaler Inhale 2 Puffs as instructed every 4 hours as needed for wheezing/shortness of breath. MUCUS RELIEF ER 600 mg 12 hr tablet TAKE 1 TABLET BY MOUTH TWICE DAILY NEEDED FOR CONGESTION QUEtiapine (SEROQUEL) 25 mg tablet fluticasone (FLONASE ALLERGY RELIEF) 50 mcg/actuation nasal spray Use 1 [place] in each nostril once daily. (Patient not taking: Reported on 06/19/2024) busPIRone (BUSPAR) 10 mg tablet TAKE 1 TABLET BY MOUTH THREE TIMES DAILY FOR ANXIETY (Patient not taking: Reported on 03/23/2024) lamoTRIgine (LAMICTAL) 100 mg tablet (Patient not taking: Reported on 03/23/2024) No family history on file. Social History Tobacco Use Smoking status: Never Smokeless tobacco: Never Vaping Use Vaping status: Former Substance Use Topics Alcohol use: Not Currently Drug use: Not Currently ASSESSMENT/PLAN: 1. Acute cough - ICD9: 786.2, ICD10: R05.1 (primary diagnosis) - XR CHEST 2V FRONTAL/LAT * * * * Physician Interpretation * * * * EXAMINATION: CHEST RADIOGRAPH (2 VIEW FRONTAL AND LATERAL) CLINICAL HISTORY: Acute cough MQ: XC2_6 EXAM DATE/TIME: 06/19/2024 11:21 AM COMPARISON: No relevant prior studies available. RESULT: Lines, tubes, and devices: None. Lungs and pleura: No consolidation. No lung mass. No pleural effusion. No pneumothorax. Cardiomediastinal silhouette: Normal cardiomediastinal silhouette. Bones and soft tissues: Unremarkable. IMPRESSION IMPRESSION: No acute radiographic abnormality. Pearl Maker: MEDHAT Transcribe Date/Time: Jun 19 2024 11:31A Dictated by : CINDY WILSON MD - BENZONATATE 100 MG CAPSULE 2. URI, acute - ICD9: 465.9, ICD10: J06.9 - COVID AND INFLUENZA A/B AND RSV PCR, ROUTINE Believed to be viral at this time. Prescription instructions reviewed with patient as applicable. Potential red flag symptoms discussed with the patient. Reviewed appropriate action plan to take if red flag symptoms occur. Patient agreeable to treatment plan. Arleen Arcos APRN.ENVIRONMENTAL SERVICES SPECIALIST Allergies As of Date: 06/19/2024 Noted Allergy Reaction CEPHALEXIN 05/01/2022 2 - Rash Date Reviewed: 06/19/2024 Reviewed by: Abbey Soria LPN - Fully Assessed Reason for Visit: Cough [28] Cmt: Chest congestion, chest tightness in chest Fever [47] Cmt: Headache, bodyaches x 2 days Primary Visit Diagnosis:Acute cough [R05.1] Other Visit Diagnosis:URI, acute [J06.9] Order(s):XR CHEST 2V FRONTAL/LAT [[id number]] Order #: [id number] FUTURE COVID AND INFLUENZA A/B AND RSV PCR, ROUTINE [SQCVFLRS] Order #: [id number]. #:[id number] benzonatate (TESSALON PERLES) 100 mg capsuleTake 1 capsule by mouth (more content not included)... Normal [facility] COVID AND INFLUENZA A/B AND RSV PCR, ROUTINEon 06-19-2024 SARS-CoV-2 (COVID-19) RNA [facility]ADISE+probe Ql (Unsp spec) SARS-COV-2 (AGENT OF COVID-19) RNA: Not detected INFLUENZA A RNA: Not detected INFLUENZA B RNA: Not detected RESPIRATORY SYNCYTIAL VIRUS (RSV) RNA: Not detected Normal [facility] Comment on above: Performed By: #### [id number] #### [facility] [id number] [address] [place] [address] XR CHEST 2V FRONTAL/LATon XR CHEST 2V FRONTAL/LAT * * *Final Report* * * DATE OF EXAM: Jun 19 2024 11:21AM WOX [id number] - XR CHEST 2V FRONTAL/LAT / PROCEDURE REASON: Acute cough * * * * Physician Interpretation * * * * EXAMINATION: CHEST RADIOGRAPH (2 VIEW FRONTAL and LATERAL) CLINICAL HISTORY: Acute cough MQ: XC2_6 EXAM DATE/TIME: 06/19/2024 11:21 AM COMPARISON: No relevant prior studies available. RESULT: Lines, tubes, and devices: None. Lungs and pleura: No consolidation. No lung mass. No pleural effusion. No pneumothorax. Cardiomediastinal silhouette: Normal cardiomediastinal silhouette. Bones and soft tissues: Unremarkable. IMPRESSION: No acute radiographic abnormality. Pearl Maker: MEDHAT Transcribe Date/Time: Jun 19 2024 11:31A Dictated by : CINDY WILSON MD This examination was interpreted and the report reviewed and electronically signed by: CINDY WILSON MD on Jun 19 2024 11:31AM EST [id number] Normal [facility] XR Chest PA and Lateralon IMPRESSION: No acute radiographic abnormality. Pearl Maker: [facility] Transcribe Date/Time: Jun 19 2024 11:31A Dictated by : CINDY WILSON MD This examination was interpreted and the report reviewed and electronically signed by: CINDY WILSON MD on Jun 19 2024 11:31AM EST DIVISION OF RADIOLOGY * * *Final Report* * * DATE OF EXAM: Jun 19 2024 11:21AM WOX [id number] - XR CHEST 2V FRONTAL/LAT / PROCEDURE REASON: Acute cough * * * * Physician Interpretation * * * * EXAMINATION: CHEST RADIOGRAPH (2 VIEW FRONTAL & LATERAL) CLINICAL HISTORY: Acute cough MQ: XC2_6 EXAM DATE/TIME: 06/19/2024 11:21 AM COMPARISON: No relevant prior studies available. RESULT: Lines, tubes, and devices: None. Lungs and pleura: No consolidation. No lung mass. No pleural effusion. No pneumothorax. Cardiomediastinal silhouette: Normal cardiomediastinal silhouette. Bones and soft tissues: Unremarkable. DIVISION OF RADIOLOGY Provider, Sari Vanegas - 06/19/2024 * * *Final Report* * * DATE OF EXAM: Jun 19 2024 11:21AM WOX [id number] - XR CHEST 2V FRONTAL/LAT / PROCEDURE REASON: Acute cough * * * * Physician Interpretation * * * * EXAMINATION: CHEST RADIOGRAPH (2 VIEW FRONTAL & LATERAL) CLINICAL HISTORY: Acute cough MQ: XC2_6 EXAM DATE/TIME: 06/19/2024 11:21 AM COMPARISON: No relevant prior studies available. RESULT: Lines, tubes, and devices: None. Lungs and pleura: No consolidation. No lung mass. No pleural effusion. No pneumothorax. Cardiomediastinal silhouette: Normal cardiomediastinal silhouette. Bones and soft tissues: Unremarkable. IMPRESSION IMPRESSION: No acute radiographic abnormality. Pearl Maker: [facility] Transcribe Date/Time: Jun 19 2024 11:31A Dictated by : CINDY WILSON MD This examination was interpreted and the report reviewed and electronically signed by: CINDY WILSON MD on Jun 19 2024 11:31AM EST [facility] Radiology Study observation (narrative) [facility] XR Chest PA and LateralOrder ed By: Cc Provider on 06-19-2024 [facility] CNOVon 05-17-2024 CNOV Office Visit (UCUPNO ) VAL RUIZ ([id number]) 2000 F Date Time Provider Department 05/17/24 1:50 PM ARIELLE ARIAS During your visit today, we recorded the following information about you: Temperature Pulse Respiration Blood pressure 97.8 degrees 80/minute 14/minute 114/76 Weight Last Period 75.8 kg 05/14/24 Arielle Arias ADVISORY SOFTWARE ENGINEER.ENVIRONMENTAL SERVICES SPECIALIST 05/17/2024 2:17 PM Signed Pt will follow up with PCP if not better in 2-3 days or go to emergency department if worsening condition What is bronchitis? Bronchitis is an infection that causes a cough. It happens when the tubes that carry air into the lungs, called the bronchi, get infected. Usually, bronchitis happens after a person gets a cold or the flu. The viruses that cause the cold or flu infect the bronchi and irritate them. Antibiotics do not help bronchitis. Bronchitis can also happen when a person gets an infection called whooping cough, but this is much less common. Whooping cough is caused by bacteria that can infect the bronchi. Most people get vaccines to prevent whooping cough, but the vaccine doesn't always work. Your doctor will be able to tell if you have whooping cough by doing an exam and listening to your cough. This article is about acute bronchitis. This is different from chronic bronchitis, which is a lung disease that can affect people who smoke. What are the symptoms of bronchitis? -- The most common symptoms of bronchitis are: ?A cough that can last up to a few weeks ?Coughing up mucus that is clear, yellow, or green - Green mucus does not always mean that you have a bacterial infection. You might also have normal cold or flu symptoms, like a stuffy nose, sore throat, or headache. People with bronchitis do not usually get a fever. Is there a test for bronchitis? -- Most people with bronchitis do not need a test. But if your doctor or nurse is not sure what is causing your cough, they might do tests. For example, they might order a chest X-ray. Or if they think that you might have COVID-19, they will test you for the virus that causes the infection. How is bronchitis treated? -- Bronchitis almost always goes away on its own. But the cough can take up to 3 weeks to get better, and sometimes even longer. Doctors do not usually treat bronchitis with antibiotic medicines. That's because bronchitis is usually caused by a virus, and antibiotics kill bacteria, not viruses. Also, antibiotics can actually cause other problems To feel better, you can treat your cold and flu symptoms. You can: ?Get lots of rest, and drink plenty of liquids. ?Drink hot tea. ?Suck on cough drops or hard candy. ?Take cykp-xjx-ojyhbvb cough and cold medicines. ?Breath in warm, moist air, such as in the shower, over a kettle, or from a humidifier. ?Take a pain-relieving medicine if you have cold or flu symptoms like headache, muscle aches, or joint pain. Avoid smoking or being around others who smoke. This can make your cough worse. How can I keep from getting bronchitis again? -- You can reduce your chance of getting bronchitis again by keeping the germs that cause bronchitis out of your body. One of the best ways to do this is to wash your hands often with soap and water. If there is no sink nearby, you can use a hand gel with alcohol in it to clean your hands. How can I keep from spreading my germs? -- In addition to washing your hands often, cover your mouth with your elbow when you sneeze or cough. Using your elbow keeps you from getting germs on your hands. If you use a tissue, throw the tissue away and wash your hands. When should I call the doctor? -- Call for advice if you have: ?Fever higher than 100.4?F (38?C) ?Chest pain when you cough, trouble breathing, or coughing up blood ?A barking cough that makes it hard to talk ?Cough and weight loss that you cannot explain ?Symptoms that are not getting better after 3 weeks Arielle Arias APRN.JASE 05/17/2024 2:23 PM Signed May 17, 2024 HPI: Val Ruiz is a 23 year old female who presents today for cough, sinus congestion, drainage and pressure with ear fullness x 2 weeks. Otc: mucinex, tylenol cold and flu PAST MEDICAL HISTORY No date: Bipolar PAST SURGICAL HISTORY No date: SECTION HX No date: TONSILLECTOMY AND ADENOIDECTOMY History reviewed. No pertinent family history. Social History Tobacco Use Smoking status: Never Smokeless tobacco: Never Vaping Use Vaping status: Former Substance Use Topics Alcohol use: Not Currently Drug use: Not Currently ALLERGIES Allergen Reactions Cephalexin Rash Immunization History Administered Date(s) Administered COVID-19 vaccine ([facility] EHR) 02/22/2021 Current Medications: MUCUS RELIEF ER 600 mg 12 hr tablet TAKE 1 TABLET BY MOUTH TWICE DAILY NEEDED FOR CONGESTION QUEtiapine (SEROQUEL) 2 (more content not included)... [facility] CNOVon 03-23-2024 CNOV Office Visit (UCUPNO ) VAL RUIZ Carlos ([id number]) 2000 F Date Time Provider Department 03/23/24 1:40 PM RICCARDO LEVINE [facility] During your visit today, we recorded the following information about you: Temperature Pulse Respiration Blood pressure 97.6 degrees 79/minute 18/minute 106/73 Weight Last Period 77.3 kg 02/26/24 Riccardo Levine PA 03/23/2024 1:27 PM Signed Diagnosis: Assessment SINUSITIS and ear infection: You have sinusitis, an infection of the sinus cavities around the nose. This infection usually follows a respiratory illness; it can also be related to allergies, changes in atmospheric pressure (flying, diving), or anything that blocks nasal drainage. Symptoms include: headache, facial pain, a thick nasal discharge, congestion, and cough. The treatment includes antibiotic therapy, increasing oral fluids, and pain medication if needed. Nose spray decongestants (Afrin, Bob-Synephrine) and oral decongestants may be needed to reduce congestion and drainage. Rarely the sinus must be irrigated to remove the infected material. Sinusitis can lead to serious complications by spreading to other areas such as the eye or brain. Please call your doctor or return here right away if you have any of the following more serious symptoms: Unusual swelling around the eye or trouble seeing. Increasing pain, severe headache, or toothache. Nausea, vomiting, or unusual drowsiness. Riccardo Levine PA 03/23/2024 1:29 PM Signed March 23, 2024 HPI: Val Ruiz is a 23 year old female who presents today for Sinusitis (Drainage/congestion/Started 1 week ago becoming worse within the last 3 days./OTC:Allergy Med/Mucinex/Tylenol Cold and Sinus), Cough, and Chest Congestion. Patient states in total it has been a week with the sinus congestion. Has a history of sinus infections in the past. Patient is coughing up yellow/green sputum as well as having green/yellow discharge coming out of her nose. Denies any chest pain or shortness of breath. No recent sick contacts. Patient is also experiencing left-sided ear pain. PAST MEDICAL HISTORY Diagnosis Date Bipolar PAST SURGICAL HISTORY Procedure Laterality Date SECTION HX TONSILLECTOMY AND ADENOIDECTOMY History reviewed. No pertinent family history. Social History Tobacco Use Smoking status: Never Smokeless tobacco: Never Vaping Use Vaping Use: Former Substance Use Topics Alcohol use: Not Currently Drug use: Not Currently ALLERGIES Allergen Reactions Cephalexin Rash Immunization History Administered Date(s) Administered COVID-19 vaccine ([facility] E[facility]) 02/22/2021 Current Medications: albuterol HFA (PROVENTIL HFA, VENTOLIN HFA) 90 mcg/actuation inhaler INHALE 2 PUFFS BY MOUTH EVERY 4 TO 6 HOURS NEEDED FOR SHORTNESS OF BREATH FOR WHEEZING escitalopram oxalate (LEXAPRO) 20 mg tablet Take 1 tablet by mouth every afternoon. MUCUS RELIEF ER 600 mg 12 hr tablet TAKE 1 TABLET BY MOUTH TWICE DAILY NEEDED FOR CONGESTION QUEtiapine (SEROQUEL) 25 mg tablet amoxicillin-clavulanate potassium (AUGMENTIN) 875-125 mg per tablet Take 1 tablet by mouth two times a day for 7 days. fluticasone (FLONASE ALLERGY RELIEF) 50 mcg/actuation nasal spray Use 1 [place] in each nostril once daily. busPIRone (BUSPAR) 10 mg tablet TAKE 1 TABLET BY MOUTH THREE TIMES DAILY FOR ANXIETY (Patient not taking: Reported on 03/23/2024) lamoTRIgine (LAMICTAL) 100 mg tablet (Patient not taking: Reported on 03/23/2024) venlafaxine ER (EFFEXOR XR) 150 mg 24 hr capsule (Patient not taking: Reported on 03/23/2024) Review of Systems Constitutional: Negative for chills and fever. HENT: Positive for congestion, ear pain and sinus pain. Negative for ear discharge and sore throat. Eyes: Negative for discharge. Respiratory: Positive for cough. Negative for shortness of breath and wheezing. Cardiovascular: Negative for chest pain. Skin: Negative for rash. Neurological: Negative for headaches. Objective BP 106/73 Pulse 79 Temp 97.6 Resp 18 Wt 170 lb 6.7 oz (77.3kg) SpO2 97% LMP 02/26/2024 Physical Exam Vitals reviewed. Constitutional: General: She is not in acute distress. Appearance: Normal appearance. HENT: Head: Normocephalic and atraumatic. Right Ear: Tympanic membrane normal. Ears: Comments: Erythematous, bulging tympanic membrane, left. Nose: Congestion present. Comments: Fullness in maxillary sinuses. No tenderness and frontal sinuses or Mouth/Throat: Mouth: Mucous membranes are moist. Eyes: General: Right eye: No discharge. Left eye: No discharge. Cardiovascular: Rate and Rhythm: Normal rate and regular rhythm. Heart sounds: Normal heart sounds. Pulmonary: Effort: No respiratory distress. Breath sounds: No wheezing, rhonchi or rales. Comments: Coarse lung sounds bilaterally. Coughing in the room. Musculoskeletal: C (more content not included)... Normal [facility] URINE CULTURE [CCL]on 2022 Bacteria identified Cx Nom (U) URCUL See Results Below See Below CULTURE, URINE NORMAL UROGENITAL OLY 10,000 -<50,000 CFU/ml Normal urogenital oly SOURCE: URINE [facility] [address] [place] [address] Bonifacio Trujillo III, M.D. [id number] Normal [facility] Comment on above: Performed By: #### [id number] #### [facility],[address] [place] [address] CNOVon 05-01-2022 CNOV Office Visit (UCMNPH ) VAL RUIZ ([id number]) 2000 F Date Time Provider Department 05/01/22 10:35 AM ASIF DEL VALLE [facility] During your visit today, we recorded the following information about you: Temperature Pulse Respiration Blood pressure 97 degrees 88/minute 18/minute 117/74 Weight Last Period 70.3 kg 04/25/22 Asif Del Valle APRN.JASE 05/01/2022 10:54 AM Signed SINUSITIS: You have sinusitis, an infection of the sinus cavities around the nose. This infection usually follows a respiratory illness; it can also be related to allergies, changes in atmospheric pressure (flying, diving), or anything that blocks nasal drainage. Symptoms include: headache, facial pain, a thick nasal discharge, congestion, and cough. The treatment includes antibiotic therapy, increasing oral fluids, and pain medication if needed. Oral decongestants may be needed to reduce congestion and drainage. Sinusitis can lead to serious complications by spreading to other areas such as the eye or brain. Please call your doctor or go to ER right away if you have any of the following more serious symptoms: Unusual swelling around the eye or trouble seeing. Increasing pain, severe headache, or toothache. Nausea, vomiting, or unusual drowsiness. Follow up with PCP if symptoms continue Asif Del Valle APRN.JASE 05/01/2022 10:57 AM Signed HPI: Val Ruiz is a 21 year old female who presents with complaint of sinus pressure, chest congestion, and cough. Patient reports symptoms started about 1 week ago but beginning yesterday developed a fever with temperature up to 101. She denies any chest pain or shortness of breath. Denies nausea or vomiting. Has been taking avdt-lcx-oskpwyd cold/sinus meds with no improvement of symptoms. PAST MEDICAL HISTORY Diagnosis Date Bipolar There is no problem list on file for this patient. Current Outpatient Medications Medication Sig Dispense Refill busPIRone (BUSPAR) 10 mg tablet TAKE 1 TABLET BY MOUTH THREE TIMES DAILY FOR ANXIETY lamoTRIgine (LAMICTAL) 100 mg tablet QUEtiapine (SEROQUEL) 25 mg tablet venlafaxine ER (EFFEXOR XR) 150 mg 24 hr capsule amoxicillin-clavulanic acid (AUGMENTIN) 875-125 mg per tablet Take 1 tablet by mouth twice daily for 10 days. 20 tablet 0 No current facility-administered medications for this visit. Social History Tobacco Use Smoking status: Never Smokeless tobacco: Never Vaping Use Vaping Use: Some days Substance Use Topics Alcohol use: Not Currently Drug use: Not Currently Alcohol Use: Not Currently Tobacco Use: Never History reviewed. No pertinent family history. Review of Systems Constitutional: Negative for chills, diaphoresis and fever. HENT: Positive for congestion and sinus pain. Respiratory: Positive for cough. Negative for shortness of breath. Cardiovascular: Negative for chest pain. Gastrointestinal: Negative for nausea and vomiting. BP 117/74 Pulse 88 Temp 97 Resp 18 Wt 155 lb (70.3kg) SpO2 100% LMP 04/25/2022 Physical Exam Constitutional: General: She is not in acute distress. Appearance: Normal appearance. HENT: Right Ear: Tympanic membrane and ear canal normal. Left Ear: Tympanic membrane and ear canal normal. Nose: Congestion and rhinorrhea present. Right Sinus: Frontal sinus tenderness present. Mouth/Throat: Mouth: Mucous membranes are moist. Pharynx: Posterior oropharyngeal erythema (post nasal drip) present. Cardiovascular: Rate and Rhythm: Normal rate and regular rhythm. Heart sounds: Normal heart sounds. Pulmonary: Effort: No respiratory distress. Breath sounds: Normal breath sounds. Neurological: Mental Status: She is alert and oriented to person, place, and time. Clinical Impression ICD-10-CM 1. Acute non-recurrent frontal sinusitis J01.10 amoxicillin-clavulanic acid (AUGMENTIN) 875-125 mg per tablet PLAN: Prescription for Augmentin sent to pharmacy. Should take this antibiotic until complete. Discussed OTC cold/sinus meds as needed for symptoms and increased oral hydration. She is agreeable with plan has no other questions or concerns. Asif Del Valle APRN.ENVIRONMENTAL SERVICES SPECIALIST This note was generated with voice recognition software and may contain errors, including spelling, grammar, syntax and misrecognition of what was dictated, that are not fully corrected. Referring Provider: SELF [200] Allergies As of Date: 05/01/2022 Noted Allergy Reaction CEPHALEXIN 05/01/2022 2 - Rash Date Reviewed: 05/01/2022 Reviewed by: Shyla Fenton LPN - Fully Assessed Reason for Visit: Chest Congestion [236] Sore Throat [200] Fever [47] Cmt: The patient states that her symptoms started 1 week ago. Primary Visit Diagnosis:Acute non-recurrent frontal sinusitis [J01.10] Order(s):amoxicillin-clavulani c acid (AUGMENTIN) 875-125 mg per tabletTake 1 tablet by mouth twice daily for 10 days.Disp: 20 tabletRfl (more content not included)... Normal [facility] 10-18-2021 [facility] DATE OF SERVICE: SUBJECTIVE: Patient is a 21-year-old female presenting to [facility] today for a sore throat, congestion, cough, watery eyes. Symptoms started originally 2 weeks ago. Sinus pressure and congestion seems to be getting a little worse. She denies any COVID exposure. Reports she is fully vaccinated. Fevers, sweats, chills on the first couple of days of symptoms. This has resolved. No nausea, vomiting, or diarrhea. No chest pain. No shortness of breath. PAST MEDICAL HISTORY: Anemia, asthma, depression. ALLERGIES: KEFLEX. MEDICATIONS: 1. Effexor. 2. Lamictal. 3. Seroquel. PHYSICAL EXAMINATION: Vital Signs: Reviewed and stable. General: Well appearing, nontoxic in no apparent distress. Cardiovascular: Regular rate and rhythm. No murmurs. Respiratory: Lung sounds clear to auscultation bilaterally. No [facility] PATIENT NAME: VAL RUIZ [address] [facility] [address] August MEDICAL REC #: [id number] [place] [address] [facility]ICIAN respiratory distress. HEENT: Bilateral TMs clear, noninjected. Nasal mucosa erythema and edema. Yellowish, clear, thick rhinorrhea. Posterior oropharynx, postnasal drip, minimally erythematous. No tonsillar hypertrophy or exudate present. Bilateral submandibular and anterior cervical lymphadenopathy mild. No maxillary sinus tenderness. Some frontal sinus tenderness noted. Eyes, conjunctivae and sclerae clear. PERRLA. EOMI. CLINICAL IMPRESSION: 1. Acute sinusitis. 2. Cough. PLAN: Prescription for Augmentin and Bromfed DM sent to pharmacy. Discussed Tylenol, ibuprofen, increased oral hydration, finishing antibiotics until complete. Agreeable with plan. No other questions or concerns. Asif Del Valle CNP /[id number] [facility] PATIENT NAME: VAL RUIZ Shalini August MEDICAL REC #: [id number] [place] [address] [facility] PHYSIC[facility] File#: [id number] END OF DOCUMENT / CHANGE LOG FOLLOWS Last Edited By Elec. Signed By Asif Del Valle ENVIRONMENTAL SERVICES SPECIALIST #[email or web address] Asif Del Valle CNP #[email or web address] on 10/18/2021 11:08 ET on 10/18/2021 11:08 ET Revision Number - 2 Verified/Reviewed by 10/18/21 110Hi [place] PATIENT NAME: VAL RUIZ Shalini August MEDICAL REC #: [id number] [place] [address] [facility] 07-28-2021 [facility] DATE OF SERVICE: 01/2021 HISTORY OF PRESENT ILLNESS: This is a 20-year-old female presenting with a chief complaint of a week-long history of cough, congestion, sinus pain, pressure, headache, ear pain and pressure, intermittent shortness of breath worse with coughing. No fever, chills currently. No belly pain, vomiting, diarrhea. Initially the patient was seen here back on July 19, 2021, treated with Zofran for nausea and other cold symptoms. The nausea has completely resolved since her initial appointment. She has had 2 COVID tests done in the emergency room since the symptoms began and both of those came back negative. She denies any chest pain. No belly pain. No recent COVID exposure. PAST MEDICAL HISTORY: Significant for asthma, anemia, depression, mental health issues. PAST SURGICAL HISTORY: Abdominal surgery, ENT surgery. SOCIAL HISTORY: Denies tobacco use. Occasional alcohol use. FAMILY HISTORY: No chronic medical conditions listed. [facility] PATIENT NAME: VAL RUIZ [address] [facility] [address]ust MEDICAL REC #: [id number] [place] [address] [place] [facility] MEDICATIONS: Include: 1. Seroquel. 2. Lamotrigine. ALLERGIES: To KEFLEX which causes rash. No other drug allergies indicated. No other allergies listed. REVIEW OF SYSTEMS: All other systems reviewed and are negative unless otherwise noted. PHYSICAL EXAMINATION: Vital Signs: Blood pressure 118/80, pulse 76, respiratory rate is 14, temperature 98.5, and oxygen 98%. General Appearance: The patient is sitting in the examination room in no acute distress. Alert and oriented x3. Pulmonary: Lungs are clear. No wheezing, rales, or rhonchi. No respiratory effort is observed. Cardiac: Normal rate and rhythm. No murmurs or gallops auscultated. Skin: Examination overall within normal limits. Abdomen: Soft, nontender, normal bowel sounds. HEENT: Bilateral tympanic membrane non-erythematous, non-bulging. Pharynx non-erythematous. Uvula midline. Airway patent. No cervical lymphadenopathy. Mild tenderness over the sinuses with palpation. DIAGNOSTICS: I did offer to do a chest x-ray. Patient deferred at [facility] PATIENT NAME: VAL RUIZ N [address] [facility] [address] August MEDICAL REC #: [id number] [place] [address] [facility] REPORT [facility] PHYSICIAN this time. DIAGNOSIS: Acute sinusitis, upper respiratory infection. PLAN: Recommended symptomatic over the counter treatment. I did send over doxycycline 100 mg twice a day for 7 days to treat symptoms. Follow up with primary care. Patient agreeable, stable. All questions answered. Zoie Potter PA-C /[id number] [facility] File#: [id number] END OF DOCUMENT / CHANGE LOG FOLLOWS Last Edited By Elec. Signed By Zoie Potter #[email or web address] Zoie Potter #[email or web address] on 08/04/2021 14:37 ET on 08/04/2021 14:37 ET Revision Number - 2 Verified/Reviewed by 08/04/21 1437 ERIBERTO [facility] PATIENT NAME: VAL RUIZ [address] [facility] [address] [place] MEDICAL REC #: [id number] [place] [address] [place] [facility] PHYSICIAN Normal [facility] STATCARE REPORT Normal [facility] THROAT STREPon 07-21-2021 THROAT STREP BETA STREP RESULT NO BETA STREPTOCOCCUS ISOLATED Normal [facility] Comment on above: Order Comment: [place]: TSC Performed By: #### M 150.98211, M100.37486 #### [facility] - [address] [address] # [phone] RAPID STREP Aon 07-19-2021 S. pyogenes Ag IA Ql (Unsp spec) GROUP A STREP PRESUMPTIVE NEGATIVE FOR GROUP A BETA STREPTOCOCCUS Normal [facility] Comment on above: Order Comment: [place]: TSC Performed By: #### M 150.20882, M100.15962 #### [facility] - [address] [address] # [phone] TSCon 07-19-2021 TSC DATE OF SERVICE: HISTORY OF PRESENT ILLNESS: A 20-year-old female with a chief complaint of sore throat, fever, headache, nausea. Symptoms have been present for the past 2 days. She says that she has not been coughing. She has been taking ibuprofen. She had been vaccinated from COVID last February. She has had her tonsils removed. PAST MEDICAL HISTORY: History of anemia, asthma, frequent headaches, depression. PAST SURGICAL HISTORY: She has had abdominal surgery and tonsillectomy. MEDICATIONS: She is on: 1. Seroquel. 2. Lamotrigine. 3. Dayquil. ALLERGIES: To KEFLEX. SOCIAL HISTORY: Nonsmoker. Drinks alcohol occasionally. FAMILY HISTORY: No family history. PHYSICAL EXAMINATION: Vital Signs: Blood pressure is 123/77, pulse 118, respiratory [facility] PATIENT NAME: VAL RUIZ [address] [facility] [address] [place] MEDICAL REC #: [id number] [place] [address] [place] [facility] rate 16, temperature 100.5, pulse oximetry is 99%. She is in no acute distress. Tympanic membranes intact. Mild nasal turbinate hypertrophy. Oral mucosa is moist. Normal posterior pharynx. She has tender large anterior cervical lymph nodes bilaterally. Heart: Regular rate and rhythm. No murmurs, rubs, or gallops. Lungs: Clear to auscultation bilaterally. Her rapid strep is negative. The patient vomited a few times in the trash can. ASSESSMENT: 1. Pharyngitis. 2. Nausea secondary to number 1. PLAN: Zofran 4 mg oral dissolvable tablets every 8 hours as needed for nausea. Tylenol, ibuprofen. We will follow up on the culture results. Zuleyma Huitron MD /[id number] [facility] File#: [id number] [facility] PATIENT NAME: VAL RUIZ [address] [facility] [address] [place] MEDICAL REC #: [id number] [place] [address] [place] [facility] PHYSICIAN END OF DOCUMENT / CHANGE LOG FOLLOWS Last Edited By Zuleyma Huitron MD #COBMA on 07/25/2021 12:18 ET Revision Number - 2 Last Edited By Elec. Signed By Zuleyma Huitron MD #COBMA Zuleyma Huitron MD #COBMA on 07/25/2021 12:18 ET on 07/25/2021 12:18 ET Revision Number - 3 Verified/Reviewed by 07/25/21 1218 ANTWAN [facility] PATIENT NAME: VAL RUIZ N [address] [facility] [address] [place] MEDICAL REC #: [id number] [place] [address] [place] [facility] PHYSICIAN Normal [facility] [place] [facility] Normal [facility] THROAT STREPon 04-28-2021 THROAT STREP BETA STREP RESULT NO BETA STREPTOCOCCUS ISOLATED Normal [facility] Comment on above: Order Comment: [place]: TSC Performed By: #### M 150.68707, M100.40147 ####[facility] - [id number] [place], [place] [address]AW# [phone] [id number] 04-27-2021 SARS-CoV-2 (COVID-19) RNA PARADISE+probe Ql (Unsp spec) Negative Normal Negative [facility] Comment on above: Order Comment: [place]: TSC Result Comment: Nega tive results do not preclude SARS-CoV-2 infection and should not be used as the sole basis for patient management decisions. Negative results must be combined with clinical observations, patient history, and epidemiological information. This test has been authorized by the FDA under the Emergency Use Authorization (EUA) for use by authorized laboratories. This test was performed by PCR. Performed By: #### L 770.65467 #### [facility] [address] [place] [address] # [phone] RAPID STREP Aon 04-26-2021 S. pyogenes Ag IA Ql (Unsp spec) GROUP A STREP PRESUMPTIVE NEGATIVE FOR GROUP A BETA STREPTOCOCCUS Normal [facility] Comment on above: Order Comment: [place]: [facility] Performed By: #### M 150.60401, M100.64616 #### [facility] [place] [address] [place] [address] PH# [phone] [facility] 04-26-2021 [facility] DATE OF SERVICE: 12/2020 HISTORY OF PRESENT ILLNESS: Patient is a 20-year-old female here for fever, sore throat, cough, congestion, dizziness, headache, nausea. Fever up to 102 yesterday. She has had symptoms since around Saturday or Saturday. ALLERGIES: KEFLEX. PHYSICAL EXAMINATION: Vital Signs: Blood pressure 118/80, pulse 84, respirations 12, temperature 100.1, pulse oximetry 97%. Pain 8 out of 10. She works at [employer]. No exposure to COVID that she knows of. General: She is alert and oriented x3, in no apparent distress. HEENT: All within normal limits with the exception of the oropharynx mildly erythematous. Some tenderness in the anterior lymph nodes. Cardiac: Normal rate and rhythm without evidence of murmur. The lungs are slightly rhonchitic bilaterally. LABORATORY DATA: Rapid strep was done, which returned negative. COVID swab was also done, which is still pending. DIAGNOSIS: 1. Fever. [facility] PATIENT NAME: VAL RUIZ N [address] MEDICAL REC #: [id number] [place] [address] [place] [facility] RE[facility] PHYSICIAN 2. Sinusitis. PLAN: She Is placed on a Z-Hermelindo pending COVID swab. Follow up as needed. They acknowledged and understood. Misty López PA-C [id number] [facility] File#: [id number] END OF DOCUMENT / CHANGE LOG FOLLOWS Last Edited By Elec. Signed By Misty López PAC #Misty Austin PAC #LENCHO on 04/28/2021 13:23 ET on 04/28/2021 13:23 ET Revision Number - 2 Verified/Reviewed by 04/28/21 1323 LENCHO [facility] PATIENT NAME: VAL RUIZ N [address] MEDICAL REC #: [id number] [place] [address] [place] [facility] PHYSICIAN Normal [facility] STATCARE REPORT Normal [facility] [id number] 03-28-2021 SARS-CoV-2 (COVID-19) RNA [facility]ADISE+probe Ql (Unsp spec) Negative Normal Negative [facility] Comment on above: Order Comment: [place]: TSC Result Comment: Nega tive results do not preclude SARS-CoV-2 infection and should not be used as the sole basis for patient management decisions. Negative results must be combined with clinical observations, patient history, and epidemiological information. This test has been authorized by the FDA under the Emergency Use Authorization (EUA) for use by authorized laboratories. This test was performed by PCR. Performed By: #### L 770.45063 ####[facility] [id number] [place], [place] [address]Po# [phone] [facility] 03-27-2021 [facility] DATE OF SERVICE: 01/2021 SUBJECTIVE: Patient is a 20[facility], body aches, cough, congestion, sore throat, and some nausea. Symptoms originally started about 6 days ago. She states she did have a known COVID exposure to a co-worker about a week and a half ago. She states she has received the Robert and Robert vaccination at the beginning of February. She comes in today just because she is not feeling any better. She was expecting to have improvement of symptoms. No vomiting. Has intermittently had some diarrhea as well and some shortness of breath. No loss of taste or smell. PAST MEDICAL HISTORY: Anemia, arthritis, asthma, headaches, depression, mental health issues. ALLERGIES: KEFLEX. MEDICATIONS: 1. Lamictal. 2. Seroquel. 3. Zoloft. [facility] PATIENT NAME: VAL RUIZ N [address] [facility] [address] [place] MEDICAL REC #: [id number] [place] [address] [place] [facility] PHYSICAL EXAMINATION: Vital signs reviewed and stable. General: Well appearing, non-toxic. No apparent distress. Cardiovascular: Regular rate and rhythm. No murmurs. Respiratory: Lung sounds clear to auscultation bilaterally. No respiratory distress. Gastrointestinal: Normal bowel sounds. No abdominal tenderness, flank tenderness, or CVA tenderness. HEENT: Bilateral TMs clear, non-injected. Nasal mucosa erythema and edema. Clear rhinorrhea. Posterior pharynx: Postnasal drip. No tonsillar hypertrophy or exudates present. CLINICAL IMPRESSION: 1. Viral illness. 2. Rule out COVID-19. PLAN: Prescription of Bromfed DM sent to pharmacy. Discussed rest, Tylenol, ibuprofen, increased oral hydration, quarantining at home pending COVID-19 test results. She is agreeable with plan, has no other questions or concerns. Asif Del Valle CNP /[id number] [facility] PATIENT NAME: VAL RUIZ N [address] [facility] [address] [place] MEDICAL REC #: [id number] [place] [address] [facility] REPORT STAT[facility]ARE PHYSICIAN [facility] File#: [id number] END OF DOCUMENT / CHANGE LOG FOLLOWS Last Edited By Elec. Signed By Asif Del Valle ENVIRONMENTAL SERVICES SPECIALIST #MOYCO Asif Del Valle CNP #MOYCO on 03/27/2021 16:39 ET on 03/27/2021 16:39 ET Revision Number - 2 Verified/Reviewed by 03/27/21 1639 CHANTAL [facility] PATIENT NAME: VAL RUIZ [address] [facility] [address] [place] MEDICAL REC #: [id number] [place] [address] [place] [facility] RE[facility] PHYSICIAN Normal [facility] [place] [facility] RE[facility] Normal [facility] URINE CULTUREon 03-23-2021 Bacteria identified Cx Nom (U) NO GROWTH AFTER [address] [facility] Comment on above: Order Comment: [place]: TSC Performed By: #### M 100.79686 ####[facility] - [id number] [place], [place] [address]PS# [phone] DIPSTICKon 03-21-2021 POC APPEARANCE HAZY Normal CLEAR [facility] Comment on above: Order Comment: [place]: TSC Performed By: #### L 600.70991 #### [facility] [place] [address] [place], [place] [address] PH# [phone] POC BILIRUBIN Negative Normal NEGATIVE [facility] Comment on above: Order Comment: [place]: TSC Performed By: #### L 600.02660 #### [facility] [place] [address] [place], [place] [address] PH# [phone] POC BLOOD Negative Normal NEGATIVE [facility] Comment on above: Order Comment: [place]: TSC Performed By: #### L 600.68261 #### [facility] [place] [address] [place], [place] [address] PH# [phone] POC COLOR DK YELL Normal [facility] Comment on above: Order Comment: [place]: TSC Performed By: #### L 600.20999 #### [facility] [place] [address] [place], [place] [address] PH# [phone] POC KETONE Negative Normal NEGATIVE [facility] Comment on above: Order Comment: [place]: TSC Performed By: #### L 600.49975 #### [facility] [place] [address] [facility] [place], [place] [address] PH# [phone] POC LEUK EST Negative Normal NEGATIVE [facility] [place] Comment on above: Order Comment: [place]: TSC Performed By: #### L 600.47391 #### [facility] [place] [address] [facility] [place], [place] [address] PH# [phone] POC NITRITE Negative Normal NEGATIVE [facility] [place] Comment on above: Order Comment: [place]: TSC Performed By: #### L 600.41438 #### [facility] - [address] [address] PH# [phone] POC PROTEIN Negative Normal NEGATIVE [facility] [place] Comment on above: Order Comment: [place]: TSC Performed By: #### L 600.42476 #### [facility] [place] [address] [place], [place] [address] PH# [phone] POC SPEC GRAV 1.025 Normal 1.005-1.030 [facility] [place] Comment on above: Order Comment: [place]: TSC Performed By: #### L 600.40550 #### [facility] [place] [address] [place], [place] [address] PH# [phone] POC UA [facility]COSE [facility]: Order Comment: [place]: TSC Performed By: #### L 600.87547 #### [facility] [place] [address] [facility] [place], [place] [address] PH# [phone] POC UA PH 6.0 Normal 5-6 [facility] [place] Comment on above: Order Comment: [place]: TSC Performed By: #### L 600.58483 #### [facility] [place] [address] [facility] [place] [place] [address] PH# [phone] POC UROBIL NORMAL Normal NORMAL [facility] Comment on above: Order Comment: [place]: TSC Performed By: #### L 600.51009 #### [facility] [place] [address] [place], [place] [address] # [phone] [facility] 03-21-2021 [facility] DATE OF SERVICE: HISTORY OF PRESENT ILLNESS: Patient is a 20-year-old female presenting [facility] today for body aches, fever, chills, headache and nausea. It started a couple of days ago. Fever was low-grade this morning. She also reports she has been having some dysuria and dark malodorous urine as well. Has not really been eating or drinking much due to the nausea. No chest pain, no shortness of breath, no cough or congestion. PAST MEDICAL HISTORY: Anemia, asthma, depression, headache, mental health issues. ALLERGIES: KEFLEX. MEDICATIONS: 1. Seroquel. 2. Lamictal. 3. Zoloft. PHYSICAL EXAMINATION: Vital signs reviewed and stable. General: Well-appearing, nontoxic, no apparent distress. Mucous membranes moist. Cardiovascular: Regular rate and rhythm, no murmurs. Respiratory: Lung sounds clear to auscultation [facility] PATIENT NAME: VAL RUIZ N [address] [facility] [address] MEDICAL REC #: [id number] [place] [address] [place] [facility] bilaterally, no respiratory distress. Gastrointestinal: Normal bowel sounds. Lower abdominal tenderness mild, no rebound tenderness, guarding or rigidity. No flank tenderness or CVA tenderness. Urinalysis obtained, negative blood, negative nitrites, negative leukocyte esterase. This will be sent out for urine culture. CLINICAL IMPRESSION: 1. Viral illness. 2. Nausea. 3. Fever. 4. Dysuria. PLAN: Jessica HUSAIN sent to pharmacy. I discussed follow-up in regards to urine culture. Tylenol, ibuprofen, increased oral hydration, rest. Off work today and tomorrow. She is agreeable with plan. No other questions or concerns. Asif Del Valle CNP /[id number] [facility] PATIENT NAME: SARAMERYLDenise Albert Lis [address] August MEDICAL REC #: [id number] [place] [address] [facility] REPORT [facility] PHYSICIAN [facility] File#: [id number] END OF DOCUMENT / CHANGE LOG FOLLOWS Last Edited By Audie. Signed By Asif Del Valle CNP #MOYCO Asif Del Valle CNP #MOYCO on 03/26/2021 09:06 ET on 03/26/2021 09:06 ET Revision Number - 2 Verified/Reviewed by 03/26/21 09Yadira CORNEJO [facility] PATIENT NAME: VAL RUIZ Carlos Lis [address] August MEDICAL REC #: [id number] [place] [address] [place] [facility] RE[facility] PHYSICIAN Normal [facility] [place] [facility] RE[facility] [place] 01-08-2021 [facility] DATE OF SERVICE: HISTORY OF PRESENT ILLNESS: The patient is a 20-year-old female who comes in for evaluation of irritation to her left eye. It has been bothering her for the past day. She does not wear contacts. ALLERGIES, MEDICATIONS, MEDICAL, SURGICAL HISTORY: Per nursing assessment sheets. PHYSICAL EXAMINATION: Vitals are stable. On exam, pupils round, reactive. Ears clear. Oropharynx clear. Conjunctival erythema left eye, stained with tetracaine and fluorescein stain. No uptake of dye in the cornea. IMPRESSION: [place] eye, left. Put on erythromycin eye ointment and discharged. JENI Pan/[id number] [facility] File#: [id number] [facility] PATIENT NAME: VAL RUIZ N [address] [facility] [address] [place] MEDICAL REC #: [id number] [place] [address] [place] [facility] RE[facility] PHYSICIAN END OF DOCUMENT / CHANGE LOG FOLLOWS Last Edited By Elec. Signed By Cain ElizabethDYKLE Cain Elizabeth on 01/25/2021 14:08 ET on 01/25/2021 14:08 ET Revision Number - 2 Verified/Reviewed by 01/25/21 1408 KEMAR [facility] PATIENT NAME: VAL RUIZ [address] MEDICAL REC #: [id number] [place] [address] [place] [facility] RE[facility] PHYSICIAN Normal [facility] REPORT [facility] 12-30-2020 [facility] DATE OF SERVICE: 05/2021 CHIEF COMPLAINT: Abdominal pain, diarrhea. HISTORY OF PRESENT ILLNESS: Patient is a 20-year-old female who presents with a less than 1-day history of abdominal pain and diarrhea. She states that about 3 a.m. today she woke up and she was having sharp abdominal cramps. Whenever she would have that, she felt like she had to have a bowel movement. She has had diarrhea ever since then. It was about 20 to 30 minutes that she was having a bowel movement in that timeframe and now it has slowed up and now it is about once every hour. She was not able to go to work because she was constantly in the restroom, so she was wanting to come in today in order to be evaluated and also she is in need of a work note. PAST MEDICAL HISTORY: Anemia, arthritis, asthma, depression, mental health issues. PAST SURGICAL HISTORY: Abdominal and ENT. CURRENT MEDICATIONS: Reviewed and considered. ALLERGIES: KEFLEX AND ONIONS. SOCIAL HISTORY: Admits to alcohol use, denies tobacco use. [facility] PATIENT NAME: VAL RUIZ [address] MEDICAL REC #: [id number] [place] [id number] [facility] RE[facility] REVIEW OF SYSTEMS: General: Denies fevers, chills, body aches. HEENT: Admits to headache, denies changes in vision. Respiratory: Denies cough, wheezing, or shortness of breath. Cardiovascular: Denies dyspnea, chest pain and palpitations. Gastrointestinal: Admits to nausea, denies vomiting, admits to abdominal cramping, admits to diarrhea. Denies blood within the stool. PHYSICAL EXAMINATION: Vital Signs: Blood pressure 112/68, pulse 90, respiration rate 16, temperature 98.0, pulse oximetry on room air 99%. General: Patient is alert and oriented x3. Appears to be in no acute distress. Skin: The patient has good skin turgor. She has also moist mucous membranes. No signs of dehydration. Respiratory: Normal breath sounds heard in all lung santana. No wheezing, rhonchi, or rales present. Cardiac exam: Regular rate and rhythm. No murmurs noted. Abdominal: Increased bowel sounds heard in all 4 quadrants. No abdomen bruits noted. Slight tenderness to palpation of all 4 quadrants; however, no pain to deep palpation. No distension, guarding or organomegaly present. Negative CVA tenderness bilaterally. DIAGNOSIS: Gastroenteritis. [facility] PATIENT NAME: VAL RUIZ [address] [facility] REC #: [id number] [place] [id number] [facility] REPORT [facility] PLAN: The patient is to get lot of fluids in, especially ones with electrolytes and she is to use the BRAT diet. Follow up at her primary care doctor if she is not improving. If any worsening symptoms, then she is to go to the ER. Patient agrees and understands the plan at this time. The patient stable upon discharge from [facility]. JENI Szymanski/[id number] [facility] File#: [id number] END OF DOCUMENT / CHANGE LOG FOLLOWS Last Edited By Elec. Signed By Destini Rogel PAC #[email or web address] Destini Rogel PAC #[email or web address] on 12/30/2020 10:53 ET on 12/30/2020 10:53 ET Revision Number - 2 Verified/Reviewed by [facility] PATIENT NAME: VAL [facility]UIZ [facility] MED[facility] REC #: [id number] [place] [address] [place] [facility] PHYSICIAN 12/30/20 [id number] [facility] PATIENT NAME: VAL RUIZ Shalini August MEDICAL REC #: [id number] [place] [address] [place] [facility] PHYSICIAN Normal [facility] GC/Chlamydia Amp, Uron 02-24 Chlamydia Amplif, Ur Normal [facility] Reference Lab Comment on above: Result Comment: Negative for For screening asymptomatic women, a vaginal swab specimen (APTIMA vaginal swab 644617) is optimal. Urine specimens have reduced sensitivity for Chlamydia trachomatis or Neisseria gonorrhoeae infection in female patients without symptoms. This test was developed and its performance characteristics determined by [facility] ([facility]). It has not been cleared or approved by the FDA. RT [facility] is regulated under CLIA as qualified to perform high complexity testing. This test is used for clinical purposes. It should not be regarded as investigational or for research. Chlamydia For screening asymptomatic women, a vaginal swab specimen (APTIMA vaginal swab [id number]) is optimal. Urine specimens have reduced sensitivity for Chlamydia trachomatis or Neisseria gonorrhoeae infection in female patients without symptoms. This test was developed and its performance characteristics determined by [facility] ([facility]). It has not been cleared or approved by the FDA. RT [facility] is regulated under CLIA as qualified to perform high complexity testing. This test is used for clinical purposes. It should not be regarded as investigational or for research. trachomatis by For screening asymptomatic women, a vaginal swab specimen (APTIMA vaginal swab 158615) is optimal. Urine specimens have reduced sensitivity for Chlamydia trachomatis or Neisseria gonorrhoeae infection in female patients without symptoms. This test was developed and its performance characteristics determined by [facility] ([facility]). It has not been cleared or approved by the FDA. RT [facility] is regulated under CLIA as qualified to perform high complexity testing. This test is used for clinical purposes. It should not be regarded as investigational or for research. amplification. For screening asymptomatic women, a vaginal swab specimen (APTIMA vaginal swab [id number]) is optimal. Urine specimens have reduced sensitivity for Chlamydia trachomatis or Neisseria gonorrhoeae infection in female patients without symptoms. This test was developed and its performance characteristics determined by [facility] ( [facility]). It has not been cleared or approved by the FDA. RT [facility] is regulated under CLIA as qualified to perform high complexity testing. This test is used for clinical purposes. It should not be regarded as investigational or for research. Performed By: #### U GCCT #### [facility] Routine Lab [address] [place], [place] [address] GC Amplification, Ur NGNEG Normal [facility] Reference [facility] Comment on above: Performed By: #### UGCCT #### [facility] Laboratories Routine Lab [address] [place], [place] [address] Vital Signs Date Time Vital Sign Value Performing Clinician Faci nishant 02-19-2025 11:45-0400 Body mass index (BMI) [Ratio] 38.38 kg/m2 Mayra Vincent MD Work Phone: [facility] 02-19-2025 11:45-0400 Body weight 86.18 kg Mayra Vincent MD Work Phone: [facility] 02-19-2025 11:45-0400 Diastolic blood pressure 64 mm[Hg] Mayra Vincent MD Work Phone: [facility] 02-19-2025 11:45-0400 Heart rate 72 /min Mayra Vincent MD Work Phone: [facility] 02-19-2025 11:45-0400 SaO2% (BldA) [Mass fraction] 98 % Mayra Vincent MD Work Phone: [facility] 02-19-2025 11:45-0400 Systolic blood pressure 106 mm[Hg] Mayra Vincent MD Work Phone: [facility] 02-08-2025 11:24-0400 Diastolic blood pressure 72 mm[Hg] [facility] 02-08-2025 11:24-0400 Systolic blood pressure 124 mm[Hg] [facility] 02-04-2025 14:00-0400 Body mass index (BMI) [Ratio] 38.17 kg/m2 Gee Carlin MD Work Phone: [facility] 02-04-2025 14:00-0400 Body weight 85.73 kg Gee Carlin MD Work Phone: [facility] 02-04-2025 14:00-0400 Diastolic blood pressure 64 mm[Hg] Gee Carlin MD Work Phone: [facility] 02-04-2025 14:00-0400 Systolic blood pressure 108 mm[Hg] Gee Carlin MD Work Phone: [facility] 02-01-2025 11:37-0400 Diastolic blood pressure 62 mm[Hg] [facility] 02-01-2025 11:37-0400 Systolic blood pressure 108 mm[Hg] [facility] 01-28-2025 14:27-0400 Body mass index (BMI) [Ratio] 37.57 kg/m2 Alfred Arcos MD Work Phone: [facility] 01-28-2025 14:27-0400 Body weight 84.37 kg Alfred Arcos MD Work Phone: [facility] 01-28-2025 14:27-0400 Diastolic blood pressure 63 mm[Hg] Alfred Arcos MD Work Phone: [facility] 01-28-2025 14:27-0400 Systolic blood pressure 106 mm[Hg] Alfred Arcos MD Work Phone: [facility] 01-26-2025 09:28-0400 Diastolic blood pressure 66 mm[Hg] [facility] 01-26-2025 09:28-0400 Systolic blood pressure 116 mm[Hg] [facility] 01-25-2025 13:00-0400 Body temperature 97.11 [degF] Treatment Wstr Work Phone: [facility] 01-25-2025 13:00-0400 Diastolic blood pressure 66 mm[Hg] Treatment Wstr Work Phone: [facility] 01-25-2025 13:00-0400 Heart rate 60 /min Treatment Wstr Work Phone: [facility] 01-25-2025 13:00-0400 Systolic blood pressure 103 mm[Hg] Treatment Wstr Work Phone: [facility] 01-22-2025 14:35-0400 Body mass index (BMI) [Ratio] 37.57 kg/m2 Alfred Arcos MD Work Phone: [facility] 01-22-2025 14:35-0400 Body weight 84.37 kg Alfred Arcos MD Work Phone: [facility] 01-22-2025 14:35-0400 Diastolic blood pressure 71 mm[Hg] Alfred Arcos MD Work Phone: [facility] 01-22-2025 14:35-0400 Systolic blood pressure 106 mm[Hg] Alfred Arcos MD Work Phone: [facility] 01-20-2025 13:22-0400 Body mass index (BMI) [Ratio] 38.16 kg/m2 Treatment Wstr Work Phone: [facility] 01-20-2025 13:22-0400 Body temperature 98.01 [degF] Treatment Wstr Work Phone: [facility] 01-20-2025 13:22-0400 Body weight 85.7 kg Treatment Wstr Work Phone: [facility] 01-20-2025 13:22-0400 Diastolic blood pressure 73 mm[Hg] Treatment Wstr Work Phone: [facility] 01-20-2025 13:22-0400 Heart rate 78 /min Treatment Wstr Work Phone: [facility] 01-20-2025 13:22-0400 SaO2% (BldA) [Mass fraction] 96 % Treatment Wstr Work Phone: [facility] 01-20-2025 13:22-0400 Systolic blood pressure 105 mm[Hg] Treatment Wstr Work Phone: [facility] 01-18-2025 13:59-0400 Body temperature 97.5 [degF] Treatment Wstr Work Phone: [facility] 01-18-2025 13:59-0400 Diastolic blood pressure 62 mm[Hg] Treatment Wstr Work Phone: [facility] 01-18-2025 13:59-0400 Heart rate 90 /min Treatment Wstr Work Phone: [facility] 01-18-2025 13:59-0400 SaO2% (BldA) [Mass fraction] 99 % Treatment Wstr Work Phone: [facility] 01-18-2025 13:59-0400 Systolic blood pressure 99 mm[Hg] Treatment Wstr Work Phone: [facility] 01-12-2025 14:00-0400 Body temperature 98.2 [degF] Treatment Wstr Work Phone: [facility] 01-12-2025 14:00-0400 Diastolic blood pressure 73 mm[Hg] Treatment Wstr Work Phone: [facility] 01-12-2025 14:00-0400 Heart rate 101 /min Treatment Wstr Work Phone: [facility] 01-12-2025 14:00-0400 Systolic blood pressure 107 mm[Hg] Treatment Wstr Work Phone: [facility] 01-07-2025 14:11-0400 Body mass index (BMI) [Ratio] 37.2 kg/m2 Alfred Arcos MD Work Phone: [facility] 01-07-2025 14:11-0400 Body weight 83.55 kg Alfred Arcos MD Work Phone: [facility] 01-07-2025 14:11-0400 Diastolic blood pressure 78 mm[Hg] Alfred Arcos MD Work Phone: [facility] 01-07-2025 14:11-0400 Systolic blood pressure 120 mm[Hg] Alfred Arcos MD Work Phone: [facility] 12-25-2024 10:40-0400 Body mass index (BMI) [Ratio] 36.36 kg/m2 lAfred Arcos MD Work Phone: [facility] 12-25-2024 10:40-0400 Body weight 81.65 kg Alfred Arcos MD Work Phone: [facility] 12-25-2024 10:40-0400 Diastolic blood pressure 70 mm[Hg] Alfred Arcos MD Work Phone: [facility] 12-25-2024 10:40-0400 Systolic blood pressure 114 mm[Hg] Alfred Arcos MD Work Phone: [facility] 12-03-2024 13:37-0400 Body mass index (BMI) [Ratio] 35.95 kg/m2 Alfred Arcos MD Work Phone: [facility] 12-03-2024 13:37-0400 Body weight 80.74 kg Alfred Arcos MD Work Phone: [facility] 12-03-2024 13:37-0400 Diastolic blood pressure 64 mm[Hg] Alfred Arcos MD Work Phone: [facility] 12-03-2024 13:37-0400 Systolic blood pressure 112 mm[Hg] Alfred Arcos MD Work Phone: [facility] 11-06-2024 11:34-0500 Body mass index (BMI) [Ratio] 35.75 kg/m2 Alfred Arcos MD Work Phone: [facility] 11-06-2024 11:34-0500 Body weight 80.29 kg Alfred Arcos MD Work Phone: [facility] 11-06-2024 11:34-0500 Diastolic blood pressure 58 mm[Hg] Alfred Arcos MD Work Phone: [facility] 11-06-2024 11:34-0500 Systolic blood pressure 108 mm[Hg] Alfred Arcos MD Work Phone: [facility] 10-20-2024 09:16-0500 Body mass index (BMI) [Ratio] 35.71 kg/m2 Arleth Gillespie PA-C Work Phone: [facility] 10-20-2024 09:16-0500 Body temperature 97.5 [degF] Arleth Gillespie PA-C Work Phone: [facility] 10-20-2024 09:16-0500 Body weight 80.2 kg Arleth Clutter PA-C Work Phone: [facility] 10-20-2024 09:16-0500 Diastolic blood pressure 70 mm[Hg] Arleth Clutter PA-C Work Phone: [facility] 10-20-2024 09:16-0500 Heart rate 82 /min Arleth Clutter PA-C Work Phone: [facility] 10-20-2024 09:16-0500 Respiratory rate 16 /min Arleth Clutter PA-C Work Phone: [facility] 10-20-2024 09:16-0500 SaO2% (BldA) [Mass fraction] 98 % Arleth Clutter PA-C Work Phone: [facility] 10-20-2024 09:16-0500 Systolic blood pressure 122 mm[Hg] Arleth Clutter PA-C Work Phone: [facility] 10-09-2024 13:45-0500 Body mass index (BMI) [Ratio] 35.14 kg/m2 Melissa Aguilera MD Work Phone: [facility] 10-09-2024 13:45-0500 Body weight 78.93 kg Melissa Aguilera MD Work Phone: [facility] 10-09-2024 13:45-0500 Diastolic blood pressure 64 mm[Hg] Melissa Aguilera MD Work Phone: [facility] 10-09-2024 13:45-0500 Systolic blood pressure 118 mm[Hg] Melissa Aguilera MD Work Phone: [facility] 09-11-2024 11:43-0500 Body mass index (BMI) [Ratio] 35.71 kg/m2 Melissa Aguilera MD Work Phone: [facility] 09-11-2024 11:43-0500 Body weight 80.2 kg Melissa Aguilera MD Work Phone: [facility] 09-11-2024 11:43-0500 Diastolic blood pressure 76 mm[Hg] Melissa Aguilera MD Work Phone: [facility] 09-11-2024 11:43-0500 Systolic blood pressure 122 mm[Hg] Melissa Aguilera MD Work Phone: [facility] 08-15-2024 14:13-0500 Body mass index (BMI) [Ratio] 34.06 kg/m2 June Moomaw ADVISORY SOFTWARE ENGINEER.ENVIRONMENTAL SERVICES SPECIALIST Work Phone: [facility] 08-15-2024 14:13-0500 Body temperature 97.3 [degF] June Moomaw ADVISORY SOFTWARE ENGINEER.ENVIRONMENTAL SERVICES SPECIALIST Work Phone: [facility] 08-15-2024 14:13-0500 Body weight 76.5 kg June Moomaw ADVISORY SOFTWARE ENGINEER.ENVIRONMENTAL SERVICES SPECIALIST Work Phone: [facility] 08-15-2024 14:13-0500 Diastolic blood pressure 78 mm[Hg] June Moomaw ADVISORY SOFTWARE ENGINEER.ENVIRONMENTAL SERVICES SPECIALIST Work Phone: [facility] 08-15-2024 14:13-0500 Heart rate 80 /min June Moomaw ADVISORY SOFTWARE ENGINEER.ENVIRONMENTAL SERVICES SPECIALIST Work Phone: [facility] 08-15-2024 14:13-0500 Respiratory rate 18 /min June Moomaw ADVISORY SOFTWARE ENGINEER.ENVIRONMENTAL SERVICES SPECIALIST Work Phone: [facility] 08-15-2024 14:13-0500 SaO2% (BldA) [Mass fraction] 98 % June Moomaw ADVISORY SOFTWARE ENGINEER.ENVIRONMENTAL SERVICES SPECIALIST Work Phone: [facility] 08-15-2024 14:13-0500 Systolic blood pressure 122 mm[Hg] June Moomaw ADVISORY SOFTWARE ENGINEER.ENVIRONMENTAL SERVICES SPECIALIST Work Phone: [facility] 08-10-2024 12:26-0500 Body mass index (BMI) [Ratio] 34.91 kg/m2 Yong Mederos ADVISORY SOFTWARE ENGINEER.ENVIRONMENTAL SERVICES SPECIALIST Work Phone: [facility] 08-10-2024 12:26-0500 Body temperature 98.1 [degF] Yong Mederos ADVISORY SOFTWARE ENGINEER.ENVIRONMENTAL SERVICES SPECIALIST Work Phone: [facility] 08-10-2024 12:26-0500 Body weight 78.4 kg Yong Mederos APRN.ENVIRONMENTAL SERVICES SPECIALIST Work Phone: [facility] 08-10-2024 12:26-0500 Diastolic blood pressure 70 mm[Hg] Yong Mederos ADVISORY SOFTWARE ENGINEER.ENVIRONMENTAL SERVICES SPECIALIST Work Phone: [facility] 08-10-2024 12:26-0500 Heart rate 90 /min Yong Mederos ADVISORY SOFTWARE ENGINEER.ENVIRONMENTAL SERVICES SPECIALIST Work Phone: [facility] 08-10-2024 12:26-0500 Respiratory rate 21 /min Yong Mederos ADVISORY SOFTWARE ENGINEER.ENVIRONMENTAL SERVICES SPECIALIST Work Phone: [facility] 08-10-2024 12:26-0500 SaO2% (BldA) [Mass fraction] 96 % Yong Mederos ADVISORY SOFTWARE ENGINEER.ENVIRONMENTAL SERVICES SPECIALIST Work Phone: [facility] 08-10-2024 12:26-0500 Systolic blood pressure 118 mm[Hg] Yong Mederos ADVISORY SOFTWARE ENGINEER.ENVIRONMENTAL SERVICES SPECIALIST Work Phone: [facility] 08-03-2024 12:55-0500 Body height 149.9 cm Kati Campbelltin ADVISORY SOFTWARE ENGINEER.CNM Work Phone: [facility] 08-03-2024 12:55-0500 Body mass index (BMI) [Ratio] 34.74 kg/m2 Kati Campbelltin ADVISORY SOFTWARE ENGINEER.CNM Work Phone: [facility] 08-03-2024 12:55-0500 Body weight 78.02 kg Kati Campbelltin ADVISORY SOFTWARE ENGINEER.CNM Work Phone: [facility] 07-24-2024 11:05-0400 Body temperature 97.3 [degF] Arleen Arcos ADVISORY SOFTWARE ENGINEER.ENVIRONMENTAL SERVICES SPECIALIST Work Phone: [facility] 07-24-2024 11:05-0400 Body weight 78.9 kg Arleen Arcos APRN.ENVIRONMENTAL SERVICES SPECIALIST Work Phone: [facility] 07-24-2024 11:05-0400 Diastolic blood pressure 58 mm[Hg] Arleen Arcos ADVISORY SOFTWARE ENGINEER.ENVIRONMENTAL SERVICES SPECIALIST Work Phone: [facility] 07-24-2024 11:05-0400 Heart rate 84 /min Arleen Arcos ADVISORY SOFTWARE ENGINEER.ENVIRONMENTAL SERVICES SPECIALIST Work Phone: [facility] 07-24-2024 11:05-0400 Respiratory rate 22 /min Arleen Arcos ADVISORY SOFTWARE ENGINEER.ENVIRONMENTAL SERVICES SPECIALIST Work Phone: [facility] 07-24-2024 11:05-0400 SaO2% (BldA) [Mass fraction] 100 % Arleen Arcos ADVISORY SOFTWARE ENGINEER.ENVIRONMENTAL SERVICES SPECIALIST Work Phone: [facility] 07-24-2024 11:05-0400 Systolic blood pressure 112 mm[Hg] Arleen Arcos ADVISORY SOFTWARE ENGINEER.ENVIRONMENTAL SERVICES SPECIALIST Work Phone: [facility] 07-11-2024 11:04-0400 Body temperature 97.7 [degF] Shu Praisler-Wood ADVISORY SOFTWARE ENGINEER.ENVIRONMENTAL SERVICES SPECIALIST Work Phone: [facility] 07-11-2024 11:04-0400 Body weight 76.4 kg Shu Praisler-Wood ADVISORY SOFTWARE ENGINEER.ENVIRONMENTAL SERVICES SPECIALIST Work Phone: [facility] 07-11-2024 11:04-0400 Diastolic blood pressure 72 mm[Hg] Shu Praisler-Wood ADVISORY SOFTWARE ENGINEER.ENVIRONMENTAL SERVICES SPECIALIST Work Phone: [facility] 07-11-2024 11:04-0400 Heart rate 80 /min Shu Praisler-Wood ADVISORY SOFTWARE ENGINEER.ENVIRONMENTAL SERVICES SPECIALIST Work Phone: [facility] 07-11-2024 11:04-0400 Respiratory rate 21 /min Shu Praisler-Wood ADVISORY SOFTWARE ENGINEER.ENVIRONMENTAL SERVICES SPECIALIST Work Phone: [facility] 07-11-2024 11:04-0400 SaO2% (BldA) [Mass fraction] 100 % Shu Praisler-Wood ADVISORY SOFTWARE ENGINEER.ENVIRONMENTAL SERVICES SPECIALIST Work Phone: [facility] 07-11-2024 11:04-0400 Systolic blood pressure 110 mm[Hg] Shu Praisler-Wood ADVISORY SOFTWARE ENGINEER.ENVIRONMENTAL SERVICES SPECIALIST Work Phone: [facility] 06-19-2024 10:57-0400 Body temperature 97.7 [degF] Haley Black ADVISORY SOFTWARE ENGINEER.ENVIRONMENTAL SERVICES SPECIALIST Work Phone: [facility] 06-19-2024 10:57-0400 Body weight 76 kg Haley Black ADVISORY SOFTWARE ENGINEER.ENVIRONMENTAL SERVICES SPECIALIST Work Phone: [facility] 06-19-2024 10:57-0400 Diastolic blood pressure 77 mm[Hg] Haley Black ADVISORY SOFTWARE ENGINEER.ENVIRONMENTAL SERVICES SPECIALIST Work Phone: [facility] 06-19-2024 10:57-0400 Heart rate 99 /min Haley Black ADVISORY SOFTWARE ENGINEER.ENVIRONMENTAL SERVICES SPECIALIST Work Phone: [facility] 06-19-2024 10:57-0400 Respiratory rate 18 /min Haley Black ADVISORY SOFTWARE ENGINEER.ENVIRONMENTAL SERVICES SPECIALIST Work Phone: [facility] 06-19-2024 10:57-0400 SaO2% (BldA) [Mass fraction] 99 % Haley Black ADVISORY SOFTWARE ENGINEER.ENVIRONMENTAL SERVICES SPECIALIST Work Phone: [facility] 06-19-2024 10:57-0400 Systolic blood pressure 109 mm[Hg] Haley Black ADVISORY SOFTWARE ENGINEER.ENVIRONMENTAL SERVICES SPECIALIST Work Phone: [facility] 05-17-2024 14:04-0400 Body temperature 97.81 [degF] Arielle Orozcoenter ADVISORY SOFTWARE ENGINEER.ENVIRONMENTAL SERVICES SPECIALIST Work Phone: [facility] 05-17-2024 14:04-0400 Body weight 75.75 kg Arielle Orozcoenter ADVISORY SOFTWARE ENGINEER.ENVIRONMENTAL SERVICES SPECIALIST Work Phone: [facility] 05-17-2024 14:04-0400 Diastolic blood pressure 76 mm[Hg] Arielle Arias ADVISORY SOFTWARE ENGINEER.ENVIRONMENTAL SERVICES SPECIALIST Work Phone: [facility] 05-17-2024 14:04-0400 Heart rate 80 /min Arielle Arias ADVISORY SOFTWARE ENGINEER.ENVIRONMENTAL SERVICES SPECIALIST Work Phone: [facility] 05-17-2024 14:04-0400 Respiratory rate 14 /min Arielle Arias ADVISORY SOFTWARE ENGINEER.ENVIRONMENTAL SERVICES SPECIALIST Work Phone: [facility] 05-17-2024 14:04-0400 SaO2% (BldA) [Mass fraction] 98 % Arielle Arias ADVISORY SOFTWARE ENGINEER.ENVIRONMENTAL SERVICES SPECIALIST Work Phone: [facility] 05-17-2024 14:04-0400 Systolic blood pressure 114 mm[Hg] Arielle Arias ADVISORY SOFTWARE ENGINEER.ENVIRONMENTAL SERVICES SPECIALIST Work Phone: [facility] 03-23-2024 13:12-0400 Body temperature 97.59 [degF] Riccardo Nahid PA Work Phone: [facility] 03-23-2024 13:12-0400 Body weight 77.3 kg Riccardo Nahid PA Work Phone: [facility] 03-23-2024 13:12-0400 Diastolic blood pressure 73 mm[Hg] Riccardo Nahid PA Work Phone: [facility] 03-23-2024 13:12-0400 Heart rate 79 /min Riccardo Nahid PA Work Phone: [facility] 03-23-2024 13:12-0400 Respiratory rate 18 /min Riccardo Nahid PA Work Phone: [facility] 03-23-2024 13:12-0400 SaO2% (BldA) [Mass fraction] 97 % Riccardo Nahid PA Work Phone: [facility] 03-23-2024 13:12-0400 Systolic blood pressure 106 mm[Hg] Riccardo Nahid PA Work Phone: [facility] 05-01-2022 10:39-0400 Body temperature 97 [degF] Asif Del Valle ADVISORY SOFTWARE ENGINEER.ENVIRONMENTAL SERVICES SPECIALIST Work Phone: [facility] 05-01-2022 10:39-0400 Body weight 70.31 kg Asif Radha ADVISORY SOFTWARE ENGINEER.ENVIRONMENTAL SERVICES SPECIALIST Work Phone: [facility] 05-01-2022 10:39-0400 Diastolic blood pressure 74 mm[Hg] Asif Radha ADVISORY SOFTWARE ENGINEER.ENVIRONMENTAL SERVICES SPECIALIST Work Phone: [facility] 05-01-2022 10:39-0400 Heart rate 88 /min Asif Radha ADVISORY SOFTWARE ENGINEER.ENVIRONMENTAL SERVICES SPECIALIST Work Phone: [facility] 05-01-2022 10:39-0400 Respiratory rate 18 /min Asif Del Valle ADVISORY SOFTWARE ENGINEER.ENVIRONMENTAL SERVICES SPECIALIST Work Phone: [facility] 05-01-2022 10:39-0400 SaO2% (BldA) [Mass fraction] 100 % Asifbrennan Del Valle ADVISORY SOFTWARE ENGINEER.ENVIRONMENTAL SERVICES SPECIALIST Work Phone: [facility] 05-01-2022 10:39-0400 Systolic blood pressure 117 mm[Hg] Asif Del Valle ADVISORY SOFTWARE ENGINEER.ENVIRONMENTAL SERVICES SPECIALIST Work Phone: [facility] Encounters Encounter Date Encounter Type Care Provider Facility Start: 03-05-2025 ambulatory [facility] Facility:[facility] Start: 02-22-2025 End: 02-22-2025 Telemedicine consultation with patient Lalito Rocha Work Phone: Endocrinology Start: 02-22-2025 End: 02-22-2025 ambulatory [facility] Facility:[facility] Comment on above: Insulin controlled g estational diabetes mellitus (GDM) in third trimester ([facility]) (Primary Dx) Start: 02-20-2025 End: 02-20-2025 Telephone encounter Lalito Art Rocha DO Work Phone: Endocrinology Comment on above: Blood Sugar Reading Start: 02-19-2025 End: 02-19-2025 Patient encounter procedure Site [employer] [facility] Comment on above: Pre-existing diabete s mellitus in in second trimester (HCC) (Primary Dx) Supervision of high risk in third trimester ([facility]) (Primary Dx); Pre-existing diabetes mellitus in in third trimester ([facility]); Previous section; Anemia complicating , third trimester ([facility]); Obesity during ([facility]) Start: 02-19-2025 End: 02-19-2025 [facility] Facility:[facility] Start: 02-11-2025 End: 02-11-2025 [facility] Facility:[facility] Start: 02-08-2025 End: 02-08-2025 Patient encounter procedure [employer] [facility] Comment on above: Pre-existing diabete s mellitus in in second trimester (HCC) (Primary Dx); 34 weeks gestation of (HCC) Start: 02-08-2025 End: 02-08-2025 ambulatory ALFRED ARCOS Facility:[facility] Start: 02-04-2025 End: 02-04-2025 Patient encounter procedure Gee Carlin MD Work Phone: OB/Gynecology Comment on above: Supervision of high risk in third trimester (HCC) (Primary Dx); Previous section; Pre-existing diabetes mellitus in in third trimester (HCC); 34 weeks gestation of (HCC); Headache in , antepartum, third trimester (HCC) Start: 02-04-2025 End: 02-04-2025 ambulatory [facility] Facility:[facility] Start: 02-02-2025 End: 02-02-2025 Telephone encounter Laltio Rocha DO Work Phone: Endocrinology Comment on above: Blood Sugar Reading Start: 02-01-2025 End: 02-01-2025 Patient encounter procedure Whi Tech 1 [employer] Administrator M[employer] Wstr Mob Maternal Medicine Comment on above: Pre-existing diabete s mellitus in in second trimester (HCC) (Primary Dx); 33 weeks gestation of (HCC) Start: 02-01-2025 End: 02-01-2025 [facility] Facility:[facility] Start: 01-28-2025 End: 01-28-2025 Patient encounter procedure Alfred Arcos MD Work Phone: OB/Gynecology Comment on above: Supervision of high risk in third trimester (HCC) (Primary Dx); Previous section; Anemia complicating , third trimester (HCC); 33 weeks gestation of (HCC); Pre-existing diabetes mellitus in in third trimester (HCC) Start: 01-28-2025 End: 01-28-2025 ambulatory [facility] Facility:[facility] Start: 01-27-2025 End: 01-27-2025 Telephone encounter Lalito Rocha DO Work Phone: Endocrinology Comment on above: Blood Sugar Reading Start: 01-26-2025 End: 01-26-2025 Patient encounter procedure Whi Tech 1 [employer] Administrator Mfm Wstr Mob Maternal Medicine Comment on above: Pre-existing diabete s mellitus in in second trimester (HCC) (Primary Dx); 32 weeks gestation of (HCC) Start: 01-26-2025 End: 01-26-2025 ambulatory [facility] Facility:[facility] Start: 01-25-2025 End: 01-25-2025 ambulatory Treatment Rm 14 Richard [facility] Wstr Work Phone: Hematology/Oncology Comment on above: Maternal iron defici ency anemia complicating , third trimester (HCC) (Primary Dx) Start: 01-22-2025 End: 01-22-2025 Patient encounter procedure Alfred Arcos MD Work Phone: OB/Gynecology Comment on above: 32 weeks gestation o f (HCC) (Primary Dx); Pre-existing diabetes mellitus in in second trimester (HCC); Previous section; Anemia complicating , third trimester (HCC) Start: 01-22-2025 End: 01-22-2025 ambulatory [facility] Facility:[facility] Start: 01-22-2025 End: 01-22-2025 Patient encounter procedure Whi Tech 1 [employer] Administrator Mfm Wstr Mob Maternal Medicine Comment on above: Encounter for ultras ound to check growth (HCC) (Primary Dx); Pre-existing diabetes mellitus in in second trimester (HCC); 32 weeks gestation of (HCC) Start: 01-21-2025 End: 01-21-2025 Telemedicine consultation with patient Lalito Rocha DO Work Phone: Endocrinology Start: 01-21-2025 End: 01-21-2025 ambulatory Lalito Rocha DO Work Phone: Endocrinology Comment on above: Insulin controlled g estational diabetes mellitus (GDM) in third trimester (HCC) (Primary Dx) Start: 01-20-2025 End: 01-20-2025 ambulatory Treatment Rm 18 Richard [facility] Wstr Work Phone: Hematology/Oncology Comment on above: Maternal iron defici ency anemia complicating , third trimester (HCC) (Primary Dx) Start: 01-19-2025 End: 01-19-2025 Telephone encounter Lalito Rocha DO Work Phone: Endocrinology Comment on above: Blood Sugar Reading Start: 01-18-2025 End: 01-18-2025 ambulatory Treatment Rm 15 Richard [facility] Wstr Work Phone: Hematology/Oncology Comment on above: Maternal iron defici ency anemia complicating , third trimester (HCC) (Primary Dx) Start: 01-14-2025 End: 01-14-2025 ambulatory [facility] Facility:[facility] Start: 01-12-2025 End: 01-12-2025 Telephone encounter Lalito Rocha DO Work Phone: Endocrinology Comment on above: Blood Sugar Reading Start: 01-12-2025 End: 01-12-2025 ambulatory Treatment 15 Richard [facility] Wstr Work Phone: Hematology/Oncology Comment on above: Malignant neoplasm o f prostate (HCC) (Primary Dx); Maternal iron deficiency anemia complicating , third trimester (HCC) Start: 01-08-2025 End: 01-08-2025 Telephone encounter Melissa Chavez RN Maternal Medic ine Comment on above: Para Operator - O ther (PRAF) Start: 01-07-2025 End: 01-07-2025 Patient encounter procedure Alfred Arcos MD Work Phone: OB/Gynecology Comment on above: 30 weeks gestation o f (HCC) (Primary Dx); Previous section; Need for vaccination; Pre-existing diabetes mellitus in in second trimester (HCC); Maternal iron deficiency anemia complicating , third trimester (HCC) Start: 01-07-2025 End: 01-07-2025 ambulatory [facility] Facility:[facility] Start: 01-05-2025 End: 01-05-2025 Telephone encounter Lalito Rocha DO Work Phone: Endocrinology Comment on above: Blood Sugar Reading Start: 12-30-2024 End: 12-30-2024 ambulatory Thom Dean RNscourer Ma in [place] Comment on above: Blood Management Start: 12-28-2024 End: 12-28-2024 Telephone encounter Lalito Rocha DO Work Phone: Endocrinology Comment on above: Blood Sugar Reading Start: 12-25-2024 End: 12-25-2024 ambulatory [facility] Facility:[facility] Start: 12-25-2024 End: 12-25-2024 Patient encounter procedure Alfred Arcos MD Work Phone: OB/Gynecology Comment on above: Pre-existing diabete s mellitus in in second trimester (HCC) (Primary Dx); Previous delivery affecting , antepartum (HCC); Supervision of high risk in third trimester (HCC) Encounter for ultras ound to check growth (HCC) (Primary Dx); Pre-existing diabetes mellitus in in second trimester ([facility]); 28 weeks gestation of ([facility]) Start: 12-20-2024 End: 12-20-2024 Telephone encounter Lalito Rocha DO Work Phone: Endocrinology Comment on above: Blood Sugar Reading Start: 12-15-2024 End: 12-15-2024 Telephone encounter Lalito Cordova Aj Work Phone: Endocrinology Comment on above: Blood Sugar Reading Start: 12-07-2024 End: 12-08-2024 Telephone encounter Alfred Arcos MD Work Phone: OB/Gynecology Comment on above: Breast Pump Start: 12-07-2024 End: 12-07-2024 ambulatory Lalito Rocha DO Work Phone: Endocrinology Comment on above: Insulin controlled g estational diabetes mellitus (GDM) in third trimester (Primary Dx) Start: 12-07-2024 End: 12-07-2024 Telemedicine consultation with patient Lalito Rocha DO Work Phone: Endocrinology Start: 12-03-2024 End: 02-02-2025 Follow-up encounter Alfred Arcos MD Work Phone: OB/Gynecology Start: 12-03-2024 End: 12-03-2024 ambulatory [facility] Facility:[facility] Start: 12-03-2024 End: 12-03-2024 Patient encounter procedure Whi Tech 1 [employer] Administrator M[employer] Wstr Mob Maternal Medicine Comment on above: Encounter for ultras ound to check growth (Primary Dx); Diet controlled gestational diabetes mellitus (GDM) in second trimester; 25 weeks gestation of Supervision of high risk in second trimester (Primary Dx); Pre-existing diabetes mellitus in in second trimester; Previous delivery affecting , antepartum; 25 weeks gestation of Start: 11-30-2024 End: 11-30-2024 Telephone encounter Lalito Rocha DO Work Phone: Endocrinology Comment on above: Blood Sugar Reading Start: 11-22-2024 End: 11-22-2024 Telephone encounter Lalito Rocha DO Work Phone: Endocrinology Comment on above: Blood Sugar Reading Start: 11-15-2024 End: 11-15-2024 Telephone encounter Lalito Rocha DO Work Phone: Endocrinology Comment on above: Blood Sugar Reading Start: 11-10-2024 End: 01-10-2025 Follow-up encounter Melissa Aguilera MD Work Phone: OB/Gynecology Start: 11-10-2024 End: 11-10-2024 Patient encounter procedure Edie Mayer MD Work Phone: Pediatric Cardiology Start: 11-10-2024 End: 11-10-2024 Telephone encounter Lalito Rocha DO Work Phone: Endocrinology Comment on above: Blood Sugar Reading Start: 11-10-2024 End: 11-10-2024 ambulatory EDIE MAYER Facility:[facility] Start: 11-09-2024 End: 11-09-2024 Telephone encounter Melissa Chavez RN Maternal Medic ine Comment on above: Para Operator - O ther (PRAF) Start: 11-08-2024 End: 01-08-2025 Follow-up encounter Melissa Aguilera MD Work Phone: OB/Gynecology Start: 11-06-2024 End: 11-06-2024 ambulatory CARLA CORREIA Facility:[facility] Start: 11-06-2024 End: 11-06-2024 Patient encounter procedure Alfred Arcos MD Work Phone: OB/Gynecology Comment on above: Supervision of high risk in second trimester (Primary Dx); Pre-existing diabetes mellitus in in second trimester; 21 weeks gestation of ; Previous delivery affecting , antepartum Start: 11-06-2024 End: 11-06-2024 ambulatory [facility] Facility:[facility] Start: 11-06-2024 End: 11-06-2024 Patient encounter procedure Whi Tech 1 [employer] Administrator Mfm Wstr Mob Maternal Medicine Comment on above: Encounter for anatomic survey (Primary Dx); Encounter for supervision of other normal in second trimester; 21 weeks gestation of Start: 11-01-2024 End: 11-01-2024 Telephone encounter Lalito Cordova Aj DO Work Phone: Endocrinology Comment on above: Blood Sugar Reading Start: 10-24-2024 End: 10-26-2024 ambulatory Lalito Cordova Aj DO Work Phone: Endocrinology Comment on above: Insulin controlled g estational diabetes mellitus (GDM) in second trimester (Primary Dx) Start: 10-24-2024 End: 10-24-2024 Telemedicine consultation with patient Lalito Rocha Work Phone: Endocrinology Start: 10-20-2024 End: 10-20-2024 Telephone encounter Lalito Cordova Aj DO Work Phone: Endocrinology Start: 10-20-2024 End: 10-20-2024 ambulatory [facility] Facility:[facility] Start: 10-20-2024 End: 10-20-2024 Office outpatient visit 25 minutes Arleth Gillespie PA-C Work Phone: [facility] Comment on above: Acute non-recurrent sinusitis, unspecified location (Primary Dx) Start: 10-15-2024 End: 10-16-2024 Telephone encounter Lalito Art Rocha DO Work Phone: Endocrinology Start: 10-13-2024 End: 10-13-2024 Telephone encounter Lalito Art Rocha DO Work Phone: Endocrinology Start: 10-12-2024 End: 10-12-2024 Telephone encounter Lalito Rocha DO Work Phone: Endocrinology Start: 10-09-2024 End: 10-09-2024 Office outpatient visit 15 minutes Melissa Aguilera MD Work Phone: OB/Gynecology Comment on above: Elevated glucose henrique erance test (Primary Dx); Encounter for supervision of other normal in second trimester; 17 weeks gestation of ; Pre-existing type 2 diabetes mellitus during in first trimester; Pre-existing diabetes mellitus in in second trimester Start: 10-09-2024 End: 10-09-2024 [facility] Facility:[facility] Start: 10-09-2024 End: 10-09-2024 Patient encounter procedure Whi Tech 1 [employer] Administrator Mfm Wstr Mob Maternal Medicine Comment on above: Encounter for antena mona screening for malformation using ultrasound (Primary Dx); Encounter for anatomic survey; 17 weeks gestation of Start: 10-07-2024 End: 10-07-2024 Emergency department patient visit No Primary Care Physician Facility:[facility] Start: 10-05-2024 End: 10-05-2024 Emergency department patient visit No Primary Care Physician Facility:[facility] Start: 09-22-2024 End: 09-22-2024 Nursing evaluation of patient and report Janice Cole RN Work Phone: Endocrinology Comment on above: Diet controlled gest ational diabetes mellitus (GDM) in second trimester Start: 09-22-2024 End: 09-22-2024 [facility] Facility:[facility] Start: 09-18-2024 End: 09-18-2024 Telephone encounter Elba Khanna APRN.CNP Work Phone: OB/Gynecology Comment on above: Gestational Diabetes Start: 09-18-2024 End: 09-18-2024 [facility] Facility:[facility] Start: 09-15-2024 End: 09-17-2024 Orders Only Kati Rolle APRN.CNM Work Phone: [facility] Comment on above: Elevated hemoglobin A1c (Primary Dx) Results Start: 09-11-2024 End: 09-11-2024 Office outpatient visit 15 minutes Melissa Aguilera MD Work Phone: OB/Gynecology Comment on above: 13 weeks gestation o f (Primary Dx); Encounter for supervision of other normal in second trimester Start: 09-11-2024 End: 09-11-2024 [facility] Facility:[facility] Start: 09-11-2024 End: 09-11-2024 Patient encounter procedure Whi Tech 1 [employer] Administrator Mfm Wstr Mob Maternal Medicine Comment on above: Encounter for antena mona screening for malformation using ultrasound (Primary Dx); 13 weeks gestation of Start: 08-15-2024 End: 08-15-2024 [facility] Facility:[facility] Start: 08-15-2024 End: 08-15-2024 Patient encounter procedure June Coronel APRN.CNP Work Phone: [facility] Comment on above: Bacterial sinusitis (Primary Dx); Bacterial conjunctivitis Start: 08-10-2024 End: 08-10-2024 Subsequent hospital visit by physician Roula [facility] Sana Work Phone: Radiology Comment on above: Acute cough [R05.1] Start: 08-10-2024 End: 08-10-2024 [facility] Facility:[facility] Start: 08-10-2024 End: 08-10-2024 Patient encounter procedure Yong Mederos APRN.CNP Work Phone: [facility] Comment on above: URI, acute (Primary Dx); Acute cough Start: 08-04-2024 End: 08-04-2024 Telephone encounter Nurse University Administrator Oliver Blackwell Work Phone: Obstetrics/Gynecology Comment on above: PRAF Start: 08-03-2024 End: 08-03-2024 [facility] Facility:[facility] Start: 08-03-2024 End: 08-03-2024 Patient encounter procedure Kati Rolle APRN.CNM Work Phone: OB/Gynecology Comment on above: with uncer tain dates in first trimester (Primary Dx); Previous delivery affecting , antepartum; Screening for malignant neoplasm of cervix; Less than 8 weeks gestation of ; Bipolar 1 disorder, mixed (HCC); Asthma, unspecified asthma severity, unspecified whether complicated, unspecified whether persistent; Obesity during ; Encounter for supervision of high risk in first trimester, antepartum; History of delivery; Depression, major, recurrent, moderate (HCC); Anxiety; History of gestational diabetes mellitus (GDM) Start: 07-24-2024 End: 07-24-2024 ambulatory [facility] Facility:[facility] Start: 07-24-2024 End: 07-24-2024 Patient encounter procedure Arleen Arcos APRN.CNP Work Phone: [facility] Comment on above: Rhinosinusitis (Prim greg Dx) Start: 07-15-2024 End: 07-15-2024 Emergency department patient visit DESTINI LAGUNA [facility] Start: 07-11-2024 End: 07-11-2024 [facility] Facility:[facility] Start: 07-11-2024 End: 07-11-2024 Patient encounter procedure Shu Gomez APRN.CNP Work Phone: [facility] Comment on above: Missed period (Prima ry Dx); Encounter for confirmation of test result with physical examination Start: 06-19-2024 End: 06-19-2024 Subsequent hospital visit by physician Roula [facility] Sana Work Phone: Radiology Comment on above: Acute cough [R05.1] Start: 06-19-2024 End: 06-19-2024 [facility] Facility:[facility] Start: 06-19-2024 End: 06-19-2024 Patient encounter procedure Haley Black APRN.CNP Work Phone: [facility] Comment on above: Acute cough (Primary Dx); URI, acute Start: 05-17-2024 End: 05-17-2024 Patient encounter procedure Arielle Arias APRN.CNP Work Phone: [facility] Comment on above: Bronchitis (Primary Dx); Acute non-recurrent pansinusitis; Lower respiratory infection Start: 05-17-2024 End: 05-17-2024 [facility] Facility:[id number] Start: 03-23-2024 End: 03-23-2024 Patient encounter procedure Riccardo Levine PA Work Phone: [facility] Comment on above: Acute non-recurrent frontal sinusitis (Primary Dx); Acute otitis media, left Start: 03-23-2024 End: 03-23-2024 ambulatory RICCARDO LEVINE Facility:[id number] Start: 07-22-2023 End: 07-22-2023 ambulatory [facility] Start: 05-01-2022 End: 05-01-2022 Patient encounter procedure Asif Del Valle ADVISORY SOFTWARE ENGINEER.ENVIRONMENTAL SERVICES SPECIALIST Work Phone: [facility] Comment on above: Acute non-recurrent frontal sinusitis (Primary Dx) Start: 10-18-2021 Patient encounter procedure Asif Del Valle APRN.ENVIRONMENTAL SERVICES SPECIALIST Work Phone: [facility] Start: 10-18-2021 Progress Note Asif Del Valle APR N.ENVIRONMENTAL SERVICES SPECIALIST Work Phone: [facility] Start: 10-18-2021 End: 10-18-2021 Subsequent hospital visit by physician [facility] Provider [facility] Comment on above: SORE THROAT,CONGESTI ON,WATERY EYES,COUGH Start: 07-31-2021 Patient encounter procedure Zoie Potter PA-C Work Phone: [facility] Start: 07-31-2021 Progress Note Zoie garcias PA-C Work Phone: [facility] Start: 04-27-2021 Patient encounter procedure Misty Rene PA-C Work Phone: [facility] Start: 04-27-2021 Progress Note Misty Rene PA-C Work Phone: [facility] Start: 03-27-2021 Patient encounter procedure Asif Del Valle APRN.ENVIRONMENTAL SERVICES SPECIALIST Work Phone: [facility] Start: 03-27-2021 Progress Note Asif Del Valle APR N.ENVIRONMENTAL SERVICES SPECIALIST Work Phone: [facility] Start: 03-22-2021 Patient encounter procedure Asif Del Valle ADVISORY SOFTWARE ENGINEER.ENVIRONMENTAL SERVICES SPECIALIST Work Phone: [facility] Start: 03-22-2021 Progress Note Asif Del Valle APR N.ENVIRONMENTAL SERVICES SPECIALIST Work Phone: [facility] Start: 12-30-2020 Patient encounter procedure Destini Rogel Work Phone: [facility] Start: 12-30-2020 Progress Note Destini Nolasco an Work Phone: [facility] Procedures Date Procedure Procedure Detail Performing Clinician Start: 02-19-2025 Us preg uterus after 1st trimest / gestation Elba Khanna APRN.ENVIRONMENTAL SERVICES SPECIALIST Work Phone: Start: 02-11-2025 Antibody screen KIMI CORREIA Comment on above: Order Comment: Speci men Type: BLOOD SPECIMEN Ordering Facility: [facility] Address: [address] [place] [address] Performed By: #### T SPN #### [facility] CLIA [id number] [address] [place] [address] [place] Start: 02-08-2025 Us preg uterus after 1st trimest 09/23 gestation Alfred Arcos MD Work Phone: Start: 02-04-2025 Urnls dip stick/tabl et rgnt non-auto w/o micrscp Gee Carlin MD Work Phone: Start: 02-01-2025 Us preg uterus after 1st trimest 1/1st gestation Alfred Arcos MD Work Phone: Start: 01-26-2025 Us preg uterus after 1st trimest / gestation Alfred Arcos MD Work Phone: Start: 01-22-2025 Us preg uterus after 1st trimest 1/1st gestation Elba Khanna APRN.ENVIRONMENTAL SERVICES SPECIALIST Work Phone: Start: 01-21-2025 Follow-up visit Follow Up LALITO ROCHA Start: 12-25-2024 Urnls dip stick/tabl et rgnt non-auto w/o micrscp Alfred Arcos MD Work Phone: Start: 12-25-2024 Us preg uterus after 1st trimest 09/23 gestation Elba Clemencia ADVISORY SOFTWARE ENGINEER.ENVIRONMENTAL SERVICES SPECIALIST Work Phone: Start: 12-03-2024 Urnls dip stick/tabl et rgnt non-auto w/o micrscp Alfred Arcos MD Work Phone: Start: 12-03-2024 Us preg uterus after 1st trimest 09/23 gestation Elba Clemencia ADVISORY SOFTWARE ENGINEER.ENVIRONMENTAL SERVICES SPECIALIST Work Phone: Start: 11-06-2024 Us preg uterus after 1st trimest 09/23 gestation Melissa Aguilera MD Work Phone: Start: 10-09-2024 Urnls dip stick/tabl et rgnt non-auto w/o micrscp Melissa Aguilera MD Work Phone: Start: 10-09-2024 Us preg uterus after 1st trimest 09/23 gestation Kati Rolle ADVISORY SOFTWARE ENGINEER.CNM Work Phone: Start: 09-11-2024 Antibody screen KIMI CORREIA Comment on above: Order Comment: Speci men Type: BLOOD SPECIMEN Ordering Facility: [facility] Address: [address] [place] [address] Performed By: #### M AT21 #### [facility] CLIA [id number] [address] [place] [id number] Start: 09-11-2024 Us nuchal translucency 1st gestation Kati Rolle ADVISORY SOFTWARE ENGINEER.CNM Work Phone: Start: 08-10-2024 Radiologic exam ches t 2 views Yong Mederos ADVISORY SOFTWARE ENGINEER.ENVIRONMENTAL SERVICES SPECIALIST Work Phone: Start: 08-03-2024 H/O: section Previous delivery affecting , antepartum Kati Rolle ADVISORY SOFTWARE ENGINEER.CNM Work Phone: Start: 08-03-2024 Us uterus limited 1/> fetuses Kati Rolle ADVISORY SOFTWARE ENGINEER.CNM Work Phone: Start: 07-11-2024 UA DIP,URINE HCG (POC) [facility] Provider Start: 06-19-2024 Radiologic exam ches t 2 views Arleen Arcos APRN.ENVIRONMENTAL SERVICES SPECIALIST Work Phone: Start: 05-01-2022 Adult depression screening assessment Asif Del Valle JOSE.ENVIRONMENTAL SERVICES SPECIALIST Work Phone: H/O: section Previous c esarean delivery affecting , antepartum Alfred Arcos MD Work Phone: H/O: section Previous c esarean delivery affecting , antepartum Alfred Arcos MD Work Phone: H/O: section Previous c esarean delivery affecting , antepartum (HCC) Alfred Arcos MD Work Phone: H/O: section Previous c esarean section Alfred Arcos MD Work Phone: H/O: section Previous c esarean section Alfred Arcos MD Work Phone: H/O: section Previous c esarean section Alfred Arcos MD Work Phone: H/O: section Previous c esarean section Gee Carlin MD Work Phone: H/O: section Previous c esarean section Mayra Vincent MD Work Phone: Plan of Treatment Date Care Activity Detail Author Start: 01-07-2035 Urine microalbumin profile DTaP,Tdap,Td Vaccine (8 - Td or Tdap) [facility] Start: 08-03-2027 Screening for malignant neoplasm of cervix Cervical Cancer Screening [facility] Start: 05-24-2025 Influenza vaccination Influenz a Vaccine (Season Ended) [facility] Start: 04-23-2025 End: 07-23-2025 GLUC HENRIQUE, 2-HR NON-GEST, 75 GM, FASTING GLUC HENRIQUE, 2-HR NON-GEST, 75 GM, FASTING Lab Routine Insulin controlled gestational diabetes mellitus (GDM) in third trimester (HCC) Expected: 04/23/2025 (Approximate), Expires: 07/23/2025 [facility] Work Phone: Comment on above: Expected: 04/23/2025 (Approximate), Expires: 07/23/2025 Start: 03-12-2025 End: 03-12-2025 Patient encounter procedure 03/12/2025 10:50 AM EDT Office Visit OB/Gynecology [address] [place], [place] [id number] Melissa Aguilera MD [address] [place], [place] [id number] 1 week incision check OB/Gynecology Comment on above: 1 week incision chec k Start: 03-02-2025 End: 03-02-2025 Patient encounter procedure OB/Gynecology Comment on above: NST Ob Start: 02-26-2025 End: 02-26-2025 Patient encounter procedure OB/Gynecology Comment on above: NST OB Start: 02-22-2025 End: 02-22-2025 ambulatory 02/22/2025 11:00 AM EDT [facility]ocr[facility]ology [address] [place] [address] Lalito Rocha, DO [address] [place] [address] 4 weeks virtual ok- GDM Endocrinology Comment on above: 4 weeks virtual ok- GDM Start: 02-19-2025 End: 02-19-2025 Patient encounter procedure 02/19/2025 11:20 AM EDT Routine Office Visit OB/Gynecology [address] [place], [place] [id number] Mayra Frey MD [address] [place], [place] [id number] OB Pre Op C/S 03/05 @ [facility] OB/Gynecology Comment on above: OB Pre Op C/S 03/05 @ [facility] Start: 02-19-2025 End: 02-19-2025 Patient encounter procedure OB/Gynecology Comment on above: OB Pre Op C/S 03/05 @ [facility] Growth Start: 02-11-2025 End: 02-11-2025 Patient encounter procedure OB/Gynecology Comment on above: NST OB Routine Start: 02-08-2025 End: 02-08-2025 Patient encounter procedure 02/08/2025 11:00 AM EDT Routine Office Visit Maternal Medicine [address] [place] [address] [facility] Comment on above: [facility] Start: 02-04-2025 End: 02-04-2025 Patient encounter procedure OB/Gynecology Comment on above: NST OB Routine Start: 02-04-2025 End: 05-06-2025 Protein/Creatinine [Mass Ratio] in Urine [facility] Work Phone: Comment on above: Expected: 02/04/2025 , Expires: 05/06/2025 Start: 02-01-2025 End: 02-01-2025 Patient encounter procedure 02/01/2025 11:00 AM EDT Routine Office Visit Maternal Medicine [address] [place] [address] [facility] Comment on above: [facility] Start: 01-28-2025 End: 01-28-2025 Patient encounter procedure OB/Gynecology Comment on above: NST OB Routine Start: 01-26-2025 End: 01-26-2025 Patient encounter procedure 01/26/2025 8:00 AM EDT Routine Office Visit Maternal Medicine [address] [place] [address] BPP Maternal Medicine Comment on above: BPP Start: 01-25-2025 End: 01-25-2025 ambulatory 01/25/2025 1:30 PM EDT [facility] Hematology/Oncology [address] [place] [address] 2ND FLOOR Hematology/Oncology Comment on above: 2ND FLOOR Start: 01-22-2025 End: 01-22-2025 Patient encounter procedure 01/22/2025 2:40 PM EDT Routine Office Visit OB/Gynecology [address] [place] [address] Alfred Arcos MD [address] [place] [address] ob OB/Gynecology Comment on above: ob Start: 01-22-2025 End: 01-22-2025 Patient encounter procedure 01/22/2025 1:30 PM EDT Routine Office Visit Maternal Medicine [address] [place] [address] Growth /ob Maternal Medicine Comment on above: Growth /ob Start: 01-21-2025 End: 01-21-2025 Follow-up encounter 01/21/2025 8:40 AM EDT [facility] Endocrinology [address] [place] [address] Lalito Rocha, DO [address] [place] [address] 6 week virtual follow up per [facility] Comment on above: 6 week virtual follo w up per [facility] Start: 01-20-2025 End: 01-20-2025 ambulatory 01/20/2025 1:30 PM EDT [facility] Hematology/Oncology [address] [place] [address] 2ND FLOOR Hematology/Oncology Comment on above: 2ND FLOOR Start: 01-18-2025 End: 01-18-2025 ambulatory 01/18/2025 2:00 PM EDT [facility] Hematology/Oncology [address] [place] [address] 2ND FLOOR Hematology/Oncology Comment on above: 2ND FLOOR Start: 01-14-2025 End: 01-14-2025 ambulatory 01/14/2025 2:30 PM EDT [facility] Hematology/Oncology [address] [place] [address] 2ND FLOOR Hematology/Oncology Comment on above: 2ND FLOOR Start: 01-12-2025 End: 01-12-2025 ambulatory 01/12/2025 2:00 PM EDT [facility] Hematology/Oncology [address] [place] [address] 2ND FLOOR Hematology/Oncology Comment on above: 2ND FLOOR Start: 01-07-2025 End: 01-07-2025 Patient encounter procedure 01/07/2025 2:40 PM EDT Routine Office Visit OB/Gynecology [address] [place] [address] Alfred Arcos MD [address] [place] [address] OB-Tdap OB/Gynecology Comment on above: OB-Tdap Start: 12-25-2024 End: 12-25-2024 Patient encounter procedure Maternal Medicine Comment on above: Growth OB Start: 12-07-2024 End: 12-07-2024 Follow-up encounter 12/07/2024 8:40 AM EDT [facility] Endocrinology [address] [place], [place] [id number] Lalito Rocha, [address] [place], [place] [id number] 6 week follow up per [facility] Comment on above: 6 week follow up per [facility] Start: 12-03-2024 End: 03-04-2025 ANEMIA REFLEX PANEL ANEMIA REFLEX PANEL Lab Routine Pre-existing diabetes mellitus in in second trimester Previous delivery affecting , antepartum Supervision of high risk in second trimester 25 weeks gestation of Expected: 12/03/2024, Expires: 03/04/2025 [facility] Comment on above: Expected: 12/03/2024 , Expires: 03/04/2025 Start: 12-03-2024 End: 12-03-2025 SYPHILIS TREPONEMAL W/REFLEX SYPHILIS TREPONEMAL W/REFLEX Lab Routine Pre-existing diabetes mellitus in in second trimester Previous delivery affecting , antepartum Supervision of high risk in second trimester 25 weeks gestation of Expected: 12/03/2024, Expires: 12/03/2025 [facility] Work Phone: Comment on above: Expected: 12/03/2024 , Expires: 12/03/2025 Start: 12-03-2024 End: 12-03-2024 Patient encounter procedure Maternal Medicine Comment on above: Growth Growth/OB Start: 11-10-2024 End: 11-10-2024 ambulatory 11/10/2024 2:00 PM EST Procedure Pediatric Cardiology [address] [place] [address] Edie Mayer MD [address] [place] [address] Pre-existing type 2 diabetes mellitus during in first trimester [O24.1... Pediatric Cardiology Comment on above: Pre-existing type 2 diabetes mellitus during in first trimester [O24.1... Start: 11-10-2024 End: 11-10-2024 Patient encounter procedure Pediatric Cardiology Comment on above: Pre-existing type 2 diabetes mellitus during in first trimester [O24.1... type 2 diabetes samara itus - nm anatomy Start: 11-06-2024 End: 11-06-2024 Patient encounter procedure 11/06/2024 11:40 AM EST Routine Office Visit OB/Gynecology [address] [place] [address] Alfred Arcos MD [address] [place] [address] OB Routine OB/Gynecology Comment on above: OB Routine Start: 11-06-2024 End: 11-06-2024 Patient encounter procedure 11/06/2024 10:30 AM EST Routine Office Visit Maternal Medicine [address] [place] [address] Anatomy Scan Maternal Medicine Comment on above: Anatomy Scan Start: 11-05-2024 End: 11-05-2024 Patient encounter procedure 11/05/2024 11:00 AM EST Routine Office Visit Maternal Medicine [address] [address] Anatomy Scan Maternal Medicine Comment on above: Anatomy Scan Start: 11-03-2024 End: 11-03-2024 ambulatory 11/03/2024 9:00 AM EST [facility] Endocrinology [address] [place] [address] Eliezer Alonzo MD [address] [place], [place] [id number] 17 weeks gestation of [Z3A.17]; Pre-existing type 2 diabetes mellitus during in first trimester [O24.111] Endocrinology Comment on above: 17 weeks gestation o f [Z3A.17]; Pre-existing type 2 diabetes mellitus during in first trimester [O24.111] Start: 11-02-2024 End: 11-02-2024 Nutrition therapy 11/02/2024 1:00 PM EST Education Nutrition Therapy [address] [place] [address] [place] [address] O24.410 (ICD-10-CM) - Diet controlled gestational diabetes mellitus (GDM) in second trimester Nutrition Therapy Comment on above: O24.410 (ICD-10-CM) - Diet controlled gestational diabetes mellitus (GDM) in second trimester Start: 10-24-2024 End: 10-24-2024 ambulatory 10/24/2024 2:20 PM EST [facility] Endocrinology [address] [place] [address] Lalito Rocha, DO [address] [place], [place] [id number] NEW GDM Endocrinology Comment on above: NEW GDM Start: 10-12-2024 End: 10-12-2024 Nutrition therapy 10/12/2024 1:45 PM EST Education Nutrition Therapy [address] [place] [address] [place] [address] O24.410 (ICD-10-CM) - Diet controlled gestational diabetes mellitus (GDM) in second trimester Nutrition Therapy Comment on above: O24.410 (ICD-10-CM) - Diet controlled gestational diabetes mellitus (GDM) in second trimester Start: 10-09-2024 End: 10-09-2024 Patient encounter procedure OB/Gynecology Comment on above: OB Routine Anatomy Start: 09-22-2024 End: 09-22-2024 Nursing evaluation of patient and report 09/22/2024 1:00 PM EST Nurse Visit Endocrinology [address] [place] [address] Janice Cole, RN [address] [address] O24.410 (ICD-10-CM) - Diet controlled gestational diabetes mellitus (GDM) in second trimester Endocrinology Comment on above: O24.410 (ICD-10-CM) - Diet controlled gestational diabetes mellitus (GDM) in second trimester Start: 09-18-2024 End: 09-18-2024 ambulatory 09/18/2024 10:00 AM EST Results Only [facility] [address] [place] [address] 1 hour Glucose [facility] Comment on above: 1 hour Glucose Start: 09-17-2024 End: 09-17-2025 OBSTETRIC ULTRASOUND WHI OBSTETRIC ULTRASOUND WHI Anc Imaging Routine 14 weeks gestation of Expected: 09/17/2024, Expires: 09/17/2025 [facility] Work Phone: Comment on above: Expected: 09/17/2024 , Expires: 09/17/2025 Start: 09-15-2024 End: 12-15-2024 GESTATIONAL GLUCOSE SCREEN, 1-HOUR, 50 GRAM, NON-FASTING GESTATIONAL GLUCOSE SCREEN, 1-HOUR, 50 GRAM, NON-FASTING Lab Routine Elevated hemoglobin A1c Expected: 09/15/2024, Expires: 12/15/2024 [facility] Work Phone: Comment on above: Expected: 09/15/2024 , Expires: 12/15/2024 Start: 09-11-2024 End: 12-11-2024 Chromosome 21 trisomy [Presence] in Blood or Tissue by Cytogenetics [facility] Comment on above: Expected: 09/11/2024 , Expires: 12/11/2024 Start: 09-11-2024 End: 09-11-2025 OBSTETRIC ULTRASOUND WHI OBSTETRIC ULTRASOUND WHI Anc Imaging Routine Encounter for supervision of other normal in second trimester Expected: 09/11/2024, Expires: 09/11/2025 [facility] Work Phone: Comment on above: Expected: 09/11/2024 , Expires: 09/11/2025 Start: 09-11-2024 End: 09-11-2024 Patient encounter procedure OB/Gynecology Comment on above: pregancy Nuchal Start: 08-03-2024 End: 11-02-2024 ANEMIA REFLEX PANEL ANEMIA REFLEX PANEL Lab Routine Previous delivery affecting , antepartum Expected: 08/03/2024, Expires: 11/02/2024 [facility] Work Phone: Comment on above: Expected: 08/03/2024 , Expires: 11/02/2024 Start: 08-03-2024 End: 11-02-2024 Hemoglobin A1c in Blood HEMOGLOBIN A1C Lab Routine Previous delivery affecting , antepartum Expected: 08/03/2024, Expires: 11/02/2024 [facility] Comment on above: Expected: 08/03/2024 , Expires: 11/02/2024 Start: 08-03-2024 End: 11-02-2024 Hepatitis B virus surface Ag [Presence] in Serum HEPATITIS B SURFACE ANTIGEN Lab Routine Previous delivery affecting , antepartum Expected: 08/03/2024, Expires: 11/02/2024 [facility] Comment on above: Expected: 08/03/2024 , Expires: 11/02/2024 Start: 08-03-2024 End: 11-02-2024 Hepatitis C virus Ab [Presence] in Serum HEPATITIS C ANTIBODY IA WITH CONFIRMATION Lab Routine Previous delivery affecting , antepartum Expected: 08/03/2024, Expires: 11/02/2024 [facility] Comment on above: Expected: 08/03/2024 , Expires: 11/02/2024 Start: 08-03-2024 End: 11-02-2024 HIV 1+2 Ab [Presence] in Serum or Plasma by Immunoassay HIV 1/2 COMBO WITH REFLEX TO DIFFERENTIATION Lab Routine Previous delivery affecting , antepartum Expected: 08/03/2024, Expires: 11/02/2024 [facility] Comment on above: Expected: 08/03/2024 , Expires: 11/02/2024 Start: 08-03-2024 End: 08-03-2025 NUCHAL TRANSLUCENCY WHI NUCHAL TRANSLUCENCY WHI Anc Imaging Routine Less than 8 weeks gestation of Expected: 08/03/2024, Expires: 08/03/2025 [facility] Comment on above: Expected: 08/03/2024 , Expires: 08/03/2025 Start: 08-03-2024 End: 11-02-2024 RUBELLA IGG ANTIBODY RUBELLA IGG ANTIBODY Lab Routine Previous delivery affecting , antepartum Expected: 08/03/2024, Expires: 11/02/2024 [facility] Comment on above: Expected: 08/03/2024 , Expires: 11/02/2024 Start: 08-03-2024 End: 11-02-2024 SYPHILIS TREPONEMAL W/REFLEX SYPHILIS TREPONEMAL W/REFLEX Lab Routine Previous delivery affecting , antepartum Expected: 08/03/2024, Expires: 11/02/2024 [facility] Comment on above: Expected: 08/03/2024 , Expires: 11/02/2024 Start: 08-03-2024 End: 11-02-2024 TYPE + SCREEN TYPE + SCREEN Blood Bank Routine Previous delivery affecting , antepartum Expected: 08/03/2024, Expires: 11/02/2024 [facility] Comment on above: Expected: 08/03/2024 , Expires: 11/02/2024 Start: 08-03-2024 End: 08-03-2024 Patient encounter procedure 08/03/2024 1:00 PM EST Initial Office Visit OB/Gynecology [address] [place], [place] [id number] Kati Rolle APRN.[facility] [address] [place] [place] [address] pregancy OB/Gynecology Comment on above: pregancy Start: 05-24-2024 Covid-19 Vaccine ( season) Covid-19 Vaccine ( season) [facility] Start: 05-24-2024 Influenza vaccination Influenza Vacc ine (#1) [facility] Start: 09-23-2023 Behavioral Health Screening Behavioral Health Screening [facility] Start: 09-01-2023 Covid-19 Vaccine ( season) Covid-19 Vaccine ( season) [facility] Start: 05-01-2023 Adult depression screening assessment DEPRESSION SCREENING [facility] Start: 05-24-2022 Influenza vaccination INFLUENZA (#1) [facility] Start: 04-28-2022 Urine microalbumin profile DTaP,Tdap,Td Vaccine (7 - Td or Tdap) [facility] Start: 2020 PAP TESTING PAP TESTING [facility] Start: 2020 Screening for malignant neoplasm of cervix Cervical Cancer Screening [facility] Start: 2018 Urine microalbumin profile DTAP,TDAP,TD (1 - Tdap) [facility] Start: 2017 Annual PCP Team Chronic Disease Visit Annual PCP Team Chronic Disease Visit [facility] Start: 2017 Anxiety Screening Anxiety Screening [facility] Start: 2017 CHLAMYDIA SCREENING (18-24) CHLAMYDIA SCREENING (18-24) [facility] Start: 2017 Depression Screening Depression Scre ening [facility] Start: 2017 GC (GONORRHEA) SCREENING (18-24) GC (GONORRHEA) SCREENING (18-24) [facility] Start: 2017 HEPATITIS C SCREENING HEPATITIS C [facility] Start: 2017 Hepatitis C screening Hepatitis C [facility] Start: 2017 HIV SCREENING HIV SCREENING [facility] Start: 2017 HIV screening HIV Screening [facility] Start: 2017 Spirometry Spirometry [facility] Start: 2015 Meningococcal B Vaccine: Consider Based On Risk (1 of 2 - Patient Seeks Protection) Meningococcal B Vaccine: Consider Based On Risk (1 of 2 - Patient Seeks Protection) [facility] Start: 2014 HPV Vaccine (1 - 3-dose series) HPV Vaccine (1 - 3-dose series) [facility] Start: 2013 PEDS TO ADULT TRANSITION ANNUAL ASSESSMENT PEDS TO ADULT TRANSITION ANNUAL ASSESSMENT [facility] Start: 2011 PEDS TO ADULT TRANSITION INITIAL DISCUSSION PEDS TO ADULT TRANSITION INITIAL DISCUSSION [facility] Start: 2010 HPV VACCINE (1 - 2-dose series) HPV VACCINE (1 - 2-dose series) [facility] Start: 2009 MENINGOCOCCAL B: Consider based on risk (1 of 2 - Risk Bexsero 2-dose series) MENINGOCOCCAL B: Consider based on risk (1 of 2 - Risk Bexsero 2-dose series) [facility] Start: 03-03-2000 COVID-19 VACCINE (#1) COVID-19 VACCI NE (#1) [facility] Start: 1999 HEPATITIS B (1 of 3 - 3-dose series) HEPATITIS B (1 of 3 - 3-dose series) [facility] Bacteria identified in Urine by Culture URINE CULTURE Microbiology Routine Previous delivery affecting , antepartum 08/03/2024 2:04 PM EST [facility] Chlamydia trachomatis+Neisseria gonorrhoeae DNA [Presence] in Unspecified specimen by PARADISE with probe detection GONORRHEA/CHLAMYDIA NAAT Lab Routine Previous delivery affecting , antepartum 08/03/2024 2:04 PM EST [facility] COVID & INFLUENZA A/ B & RSV PCR, ROUTINE COVID & INFLUENZA A/B & RSV PCR, ROUTINE Microbiology Routine URI, acute Ordered: 06/19/2024 [facility] Work Phone: Comment on above: Ordered: 06/19/2024 End: 10-09-2025 ECHO ECHO Cardiology Routine Pre-existing type 2 diabetes mellitus during in first trimester Pre-existing diabetes mellitus in in second trimester 1 Occurrences starting 10/09/2024 until 10/09/2025 [facility] Work Phone: Comment on above: 1 Occurrences starti ng 10/09/2024 until 10/09/2025 End: 04-16-2025 nonstress test NON-STRESS TEST Procedures Routine Pre-existing diabetes mellitus in in second trimester (HCC) Once per week for 6 Occurrences starting 01/22/2025 until 04/16/2025 [facility] Comment on above: Once per week for 6 Occurrences starting 01/22/2025 until 04/16/2025 End: 03-17-2025 OBSTETRIC ULTRASOUND WHI OBSTETRIC ULTRASOUND WHI Anc Imaging Routine Diet controlled gestational diabetes mellitus (GDM) in second trimester Once per month for 5 Occurrences starting 09/18/2024 until 03/17/2025 [facility] Work Phone: Comment on above: Once per month for 5 Occurrences starting 09/18/2024 until 03/17/2025 End: 04-02-2025 OBSTETRIC ULTRASOUND WHI OBSTETRIC ULTRASOUND WHI Anc Imaging Routine Pre-existing diabetes mellitus in in second trimester ([facility]) Once per week for 6 Occurrences starting 01/22/2025 until 04/02/2025 [facility] Comment on above: Once per week for 6 Occurrences starting 01/22/2025 until 04/02/2025 PAP TEST PAP TEST Lab Yahir fajardo Screening for malignant neoplasm of cervix 08/03/2024 2:04 PM EST [facility] ROUTINE, GROUP B STREPTOCOCCUS BY PCR ROUTINE, GROUP B STREPTOCOCCUS BY PCR Microbiology Routine Supervision of high risk in third trimester ([facility]) Pre-existing diabetes mellitus in in third trimester ([facility]) Previous section Anemia complicating , third trimester ([facility]) Obesity during ([facility]) 02/19/2025 1:44 PM EDT [facility] URINE OB DIP B/O URINE OB DIP B/ O Lab Routine Pre-existing diabetes mellitus in in second trimester 21 weeks gestation of Previous delivery affecting , antepartum Supervision of high risk in second trimester Ordered: 11/06/2024 [facility] Work Phone: Comment on above: Ordered: 11/06/2024 URINE OB DIP B/O URINE OB DIP B/ O Lab Routine 32 weeks gestation of (HCC) Pre-existing diabetes mellitus in in second trimester (HCC) Previous section Anemia complicating , third trimester (HCC) Ordered: 01/22/2025 [facility] Work Phone: Comment on above: Ordered: 01/22/2025 URINE OB DIP B/O URINE OB DIP B/ O Lab Routine Previous section Anemia complicating , third trimester ([facility]) Supervision of high risk in third trimester ([facility]) 33 weeks gestation of (HCC) Pre-existing diabetes mellitus in in third trimester (HCC) Ordered: 01/28/2025 [facility] Work Phone: Comment on above: Ordered: 01/28/2025 URINE OB DIP B/O URINE OB DIP B/ O Lab Routine Supervision of high risk in third trimester (HCC) Pre-existing diabetes mellitus in in third trimester (HCC) Previous section Anemia complicating , third trimester (HCC) Obesity during (HCC) Ordered: 02/19/2025 [facility] Work Phone: Comment on above: Ordered: 02/19/2025 Immunizations Immunization Date Immunization Notes Care Provider Rick collado 02-11-2025 RHO(D) immune globul in- IV or IM Whi Mob [facility] 01-07-2025 tetanus toxoid, redu anil diphtheria toxoid, and acellular pertussis vaccine, adsorbed Alfred Arcos MD Work Phone: [facility] 04-28-2012 tetanus toxoid, redu anil diphtheria toxoid, and acellular pertussis vaccine, adsorbed Shu Praisler-[employer] ADVISORY SOFTWARE ENGINEER.ENVIRONMENTAL SERVICES SPECIALIST Work Phone: [facility] 06-30-2010 influenza, seasonal, injectable Shu Praisler-[employer] ADVISORY SOFTWARE ENGINEER.ENVIRONMENTAL SERVICES SPECIALIST Work Phone: [facility] 06-30-2010 influenza virus vacc ine, unspecified formulation Riccardo WERNER Work Phone: [facility] 05-04-2005 diphtheria, tetanus toxoids and acellular pertussis vaccine, unspecified formulation Shu P[employer]ler[employer] ADVISORY SOFTWARE ENGINEER.ENVIRONMENTAL SERVICES SPECIALIST Work Phone: [facility] 05-04-2005 measles, mumps and rubella virus vaccine Shu Praisler[employer] ADVISORY SOFTWARE ENGINEER.ENVIRONMENTAL SERVICES SPECIALIST Work Phone: [facility] 05-04-2005 poliovirus vaccine, inactivated Shu P[employer]ler[employer] ADVISORY SOFTWARE ENGINEER.ENVIRONMENTAL SERVICES SPECIALIST Work Phone: [facility] 02-21-2001 diphtheria, tetanus toxoids and acellular pertussis vaccine, unspecified formulation Shu P[employer]ler[employer] ADVISORY SOFTWARE ENGINEER.ENVIRONMENTAL SERVICES SPECIALIST Work Phone: [facility] 02-21-2001 haemophilus influenz ae type b vaccine, conjugate unspecified formulation Shu P[employer]ler[employer] ADVISORY SOFTWARE ENGINEER.ENVIRONMENTAL SERVICES SPECIALIST Work Phone: [facility] 02-21-2001 poliovirus vaccine, inactivated Shu P[employer]ler[employer] ADVISORY SOFTWARE ENGINEER.ENVIRONMENTAL SERVICES SPECIALIST Work Phone: [facility] 09-06-2000 hepatitis B vaccine, pediatric or pediatric/adolescent dosage Shu P[employer]ler[employer] ADVISORY SOFTWARE ENGINEER.ENVIRONMENTAL SERVICES SPECIALIST Work Phone: [facility] 09-06-2000 measles, mumps and rubella virus vaccine Shu P[employer]ler[employer] ADVISORY SOFTWARE ENGINEER.ENVIRONMENTAL SERVICES SPECIALIST Work Phone: [facility] 02-16-2000 diphtheria, tetanus toxoids and acellular pertussis vaccine, unspecified formulation Shu P[employer]ler[employer] ADVISORY SOFTWARE ENGINEER.ENVIRONMENTAL SERVICES SPECIALIST Work Phone: [facility] 02-16-2000 haemophilus influenz ae type b conjugate and Hepatitis B vaccine Shu P[employer]ler[employer] ADVISORY SOFTWARE ENGINEER.ENVIRONMENTAL SERVICES SPECIALIST Work Phone: [facility] 1999 diphtheria, tetanus toxoids and acellular pertussis vaccine, unspecified formulation Shu P[employer]ler[employer] ADVISORY SOFTWARE ENGINEER.ENVIRONMENTAL SERVICES SPECIALIST Work Phone: [facility] 1999 haemophilus influenz ae type b vaccine, conjugate unspecified formulation Shu P[employer]ler[employer] ADVISORY SOFTWARE ENGINEER.ENVIRONMENTAL SERVICES SPECIALIST Work Phone: [facility] 1999 hepatitis B vaccine, pediatric or pediatric/adolescent dosage Shu P[employer]ler[employer] ADVISORY SOFTWARE ENGINEER.ENVIRONMENTAL SERVICES SPECIALIST Work Phone: [facility] 1999 poliovirus vaccine, inactivated Shu [employer] ADVISORY SOFTWARE ENGINEER.ENVIRONMENTAL SERVICES SPECIALIST Work Phone: [facility] 1999 diphtheria, tetanus toxoids and acellular pertussis vaccine, unspecified formulation Shu P[employer]ler[employer] ADVISORY SOFTWARE ENGINEER.ENVIRONMENTAL SERVICES SPECIALIST Work Phone: [facility] 1999 haemophilus influenz ae type b vaccine, conjugate unspecified formulation Shu [employer]ler[employer] ADVISORY SOFTWARE ENGINEER.ENVIRONMENTAL SERVICES SPECIALIST Work Phone: [facility] 1999 poliovirus vaccine, inactivated Shu [employer]ler[employer] ADVISORY SOFTWARE ENGINEER.ENVIRONMENTAL SERVICES SPECIALIST Work Phone: [facility] Payers Date Payer Category Payer Self-pay 2022 Medicaid [id number] 2022 Medicaid [id number] 2021 Medicaid [id number] 1999 Unknown [id number] 1999 Unknown [id number] Unknown [id number] Unknown [id number] [id number] Unknown [id number] Social History Date Type Detail Facility Tobacco smoking stat [facility] Tobacco smoking consumption unknown [facility] Start: 1999 Sex Assigned At Not on file C [facility] Start: 05-01-2022 Tobacco smoking stat [facility] Never smoked tobacco [facility] Start: 05-01-2022 Tobacco use and exposure Smoke less tobacco non-user [facility] Start: 05-01-2022 End: 02-19-2025 Alcohol intake Ex-drinker (finding) [facility] Start: 04-21-2022 End: 05-01-2022 Exposure to SARS-CoV-2 (event) Not sure [facility] Start: 03-23-2024 End: 08-03-2024 History of Social function [facility] Start: 03-23-2024 End: 08-03-2024 Tobacco use panel [facility] Adult Depression Screening Assessment 0 [facility] Start: 06-24-2024 [facility] The thought of julio hernandez myself has occurred to me Hardly ever [facility] Medical Equipment Procedure Code Equipment Code Equipment Origin al Text Equipment Identifier Dates Use as directed to check glucose levels up to seven times daily. [id number] Start: 09-18-2024 Use as directed to check glucose levels up to seven times daily. [id number] Start: 09-18-2024 Use to inject insulin up to 4 times per day. [id number] Start: 10-24-2024 Goals Date Patient Goal Desired Activity /State Personal health goal Clinical Notes 12-30-2020 to 02-22-2025 Jacinta Oscar - 02/22/2025 2:15 PM EDTBisadoraLalito Art, - 02/22/2025 11:00 AM EDTTelephone Encounter - Lalito Rocha Art, DO - 02/20/2025 7:45 AM EDTPatient InstructionsPatient Instructions Note Date & Type Note Facility 02-22-2025 Note HNO ID: [id number] Author: ?, ?, ? Service: ? Author Type: ? Type: Progress Notes Filed: 02/22/2025 14:15 Note Text: Left voicemail for patient to call [phone] to schedule post visit 05/03/2025 virtual ok. [facility] 02-22-2025 History of Present illness Narrative Formatting of this note might be differe nt from the original. Left voicemail for patient to call [phone] to schedule post visit 05/03/2025 virtual ok. Reason for consultation: F/U- gestational diabetes mellitus Referring Physician: Melissa Aguilera MD My final recommendations will be communicated back to the requesting physician by way of shared Medical record or letter via US mail. This Team Access Model visit is a virtual encounter. It required patient-provider interaction for the medical decision making as documented below. I have communicated my name and active licensure. The patient's identity and physical location were verified at the time of this visit. Either the patient or their legal senior sales representative has been informed of the risks and benefits of -- and alternatives to -- treatment through a remote evaluation and consents to proceed with the evaluation remotely. HISTORY OF PRESENT ILLNESS; Ms. Ruiz is a 24 year old F presenting at 36+ weeks gestation here for f/u regarding gestational diabetes mellitus. Last visit with me was 01/21/25. She was diagnosed with GDM after abnormal 1 hour GTT on 09/18 (BG 312 mg/dL). HbA1c at that time was 5.8%- suggestive of preexisting beta cell dysfunction (but not necessarily overt diabetes). She has a previous history of gestational diabetes- has a 4 year old daughter. State she was taking oral agents during that . Family hx of diabetes in maternal grandfather. Mother and GDM in two pregnancies. Her prepregnancy weight was 168 lbs and her current weight is 190 lbs. Insulin was initiated at her initial visit with me and has been adjusted in between visits- most recently on 02/20. Her current regimen is as follows: NPH 32 units at bedtime Humalog 5-10-10 units prior to meals respectively, + 8 units of Humalog with higher carb meals. She has been checking her blood glucose 4 times daily- reports the following BG data today: [id number] mg/dL 2 hour post meal in general less than 120 mg/dL (occasional outlier) Hypoglycemia frequency: n/a Hypoglycemia awareness: n/a Hyperglycemia Symptoms: denies blurry vision reports polyuria denies polydipsia reports nocturia denies rapid weight loss Last visit with OB was 02/19- scheduled for March 05 at 38 weeks. [place] is delivering in [place] Last u/s growth was 02/19- EFW 62nd centile, AC 90th, MESERET NL- having a boy! No complaints/concerns at this time- feels ok overall. PAST MEDICAL HISTORY Diagnosis Date Asthma (HCC) Bipolar PAST SURGICAL HISTORY Procedure Laterality Date SECTION HX 07/08/2020 primary d/t Gestational diabetes- suspected LGA TONSILLECTOMY & ADENOIDECTOMY <AGE 11 2006 FAMILY HISTORY Problem Relation Age of Onset No Known Problems Sister No Known Problems Brother Diabetes Maternal Grandfather Social History Tobacco Use Smoking status: Never Smokeless tobacco: Never Vaping Use Vaping status: Former Substance Use Topics Alcohol use: Not Currently Drug use: Never Current Outpatient Medications Medication Sig Dispense Refill insulin NPH (HUMULIN N NPH INSULIN KWIKPEN) 100 unit/mL (3 mL) injection pen 32 units at bedtime 5 each 11 metoclopramide HCl (REGLAN) 5 mg tablet Take 1 tablet by mouth four times a day as needed (headache, nausea). 30 tablet 0 insulin lispro (HUMALOG KWIKPEN) 100 unit/mL 5-10-10 units prior to meals + scale upto 55 units/day . 10 each 11 diphenhydrAMINE (UNISOM SLEEPMINIS) 25 mg capsule Take 1 capsule by mouth at bedtime as needed. 48 capsule 0 ferrous sulfate 325 mg (65 mg iron) tablet Take 1 tablet by mouth every other day. famotidine (PEPCID) 20 mg tablet Take 1 tablet by mouth two times a day. 60 tablet 5 Insulin Montgomery, Disposable, (PEN NEEDLE) 32 gauge x 5/32 Use to inject insulin up to 4 times per day. 100 Each 5 Blood-Glucose Meter Use as directed to check glucose levels up to seven times daily. 1 Each 0 blood sugar diagnostic test strip Use as directed to check glucose levels up to seven times daily. 200 Strip 8 Lancets Use as directed to check glucose levels up to seven times daily. 200 Each 8 alcohol swabs (ALCOHOL PREP PADS) Use as directed to check glucose levels up to seven times daily. 200 Each 8 fluticasone (FLONASE) 50 mcg/actuation nasal spray Use 2 Sprays in each nostril once daily. Rinse mouth after use. 1 Each 0 aspirin, enteric coated (ECOTRIN LOW STRENGTH) 81 mg EC tablet Take 1 tablet by mouth once daily. 90 tablet 3 citalopram (CELEXA) 20 mg tablet Take 20 mg by mouth once daily. no115/iron/folic acid ( 19 ORAL) Take 1 tablet by mouth once daily. albuterol HFA (PROVENTIL HFA, VENTOLIN HFA) 90 mcg/actuation inhaler Inhale 2 Puffs as instructed every 4 hours as needed for wheezing/shortness of breath. 8 g 0 No current facility-administered medications for this visit. Allergies As of Date: 02/22/2025 Allergen Noted Reaction CEPHALEXIN 05/01/2022 Rash Fully Assessed 02/19/2025 REVIEW OF SYSTEMS: General: no fever and no chills- weight gain appropriate for Skin: no rashes, pruritis or dry skin Eyes: no blurred or double vision or eye pain Cardiac: denies chest pain, heart palpitations or orthopnea Pulmonary: denies wheezing, productive cough or exertional dyspnea GI: denies nausea and denies vomiting Musc: denies history of upper or lower extremity weakness Reproductive: gravid at 36+ weeks gestation, menses regular prior to the Endocrine: complains of polyuria and nocturia Hematology: Negative for anemia, easy bleeding and bruising. PHYSICAL EXAM: No vitals as this was a virtual visit. GENERAL: Alert, no distress, cooperative SKIN: Skin color, texture, turgor normal. No rashes or lesions. HEAD/SINUSES: No significant findings EYES: sclera non-icteric, EOMs intact. ABDOMEN: gravid at 36+ weeks EXTREMITIES: Normal exam of the extremities NEURO: AAO x 3 no focal deficits The remainder of the physical exam is noncontributory. DATA: Hemoglobin A1C (%) Date Value 09/11/2024 5.8 Latest Ref Rng 09/18/2024 Glucose Scrn, Preg 74 - 134 mg/dL 312 (H) IMPRESSION: Ms. Ruiz is a 24 year old female at 36+ weeks gestation here for evaluation of gestational diabetes mellitus. RECOMMENDATIONS: 1. The patient was counseled regarding the maternal and risks of hyperglycemia during . risks include, but are not limited to: congenital abnormalities, hypoxia and stillbirth, macrosomia, shoulder dystocia and hypoglycemia. Maternal risks include increased risks of pre-eclampsia and delivery. 2. I recommend the patient check her blood glucose fasting and 2 hour after each meal, we have provided her with a glucometer if she does not have one. The following blood glucose targets were discussed: fasting blood glucose concentration between 60-90 mg/dL, and 2 hour postprandial blood glucose concentration of less than 120 mg/dL. She was encouraged to limit carbohydrate intake, to walk after meals, (if not contraindicated) and will be scheduled with our dietitian, (if not done already). Regarding her blood glucose management, I recommend she do the followin) check your sugars fasting (60-90 mg/dL) and 2 hours post meal (less than 120 mg/dL) 2) forward me your blood glucose data weekly ([email or web address])- 3) adjust insulin slightly as follows: Increase NPH to 35 units at bedtime Continue Humalog 5-10-10 units prior to meals respectively, + 8 units of Humalog with higher carb meals. 4) I would recommend monitoring BG x 24- 48 hours at least after while in this hospital. If your BG are normal- then would be ok to send you home without medication for diabetes. After you leave the hospital- check BG at least twice/day, alternate the times you check them, fasting and BEFORE meals- these numbers ideally should be 80-130 mg/dL. Forward me these numbers 1-2 weeks after discharge from the hospital. 5) see me for post f/u 05/03, with 2 hour glucose tolerance test prior to that visit. My office will reach out to schedule this- I spent a total of 30 minutes on the date of the service which included preparing to see the patient, [id number] patient care, completing clinical documentation, obtaining and/or reviewing separately obtained history, performing a medically appropriate examination, counseling and educating the patient/family/caregiver, and ordering medications, tests, or procedures. Lalito Rocha DO documented in this encounter [facility] 02-22-2025 Note HNO ID: [id number] Author: LALITO ROCHA DO Service: ? Author Type: Physician Type: Progress Notes Filed: 02/22/2025 13:18 Note Text: Reason for consultation: F/U- gestational diabetes mellitus Referring Physician: Melissa Aguilera MD My final recommendations will be communicated back to the requesting physician by way of shared Medical record or letter via US mail. This Team Access Model visit is a virtual encounter. It required patient-provider interaction for the medical decision making as documented below. I have communicated my name and active licensure. The patient's identity and physical location were verified at the time of this visit. Either the patient or their legal senior sales representative has been informed of the risks and benefits of -- and alternatives to -- treatment through a remote evaluation and consents to proceed with the evaluation remotely. HISTORY OF PRESENT ILLNESS; Ms. Ruiz is a 24 year old F presenting at 36+ weeks gestation here for f/u regarding gestational diabetes mellitus. Last visit with ky was 01/21/25. She was diagnosed with GDM after abnormal 1 hour GTT on 09/18 (BG 312 mg/dL). HbA1c at that time was 5.8%- suggestive of preexisting beta cell dysfunction (but not necessarily overt diabetes). She has a previous history of gestational diabetes- has a 4 year old daughter. State she was taking oral agents during that . Family hx of diabetes in maternal grandfather. Mother and GDM in two pregnancies. Her prepregnancy weight was 168 lbs and her current weight is 190 lbs. Insulin was initiated at her initial visit with ky and has been adjusted in between visits- most recently on 02/20. Her current regimen is as follows: NPH 32 units at bedtime Humalog 5-10-10 units prior to meals respectively, + 8 units of Humalog with higher carb meals. She has been checking her blood glucose 4 times daily- reports the following BG data today: Irpcriw06-10 mg/dL 2 hour post meal in general less than 120 mg/dL (occasional outlier) Hypoglycemia frequency: n/a Hypoglycemia awareness: n/a Hyperglycemia Symptoms: denies blurry vision reports polyuria denies polydipsia reports nocturia denies rapid weight loss Last visit with OB was 02/19- scheduled for March 05 at 38 weeks. She is delivering in [place]. Last u/s growth was 02/19- EFW 62nd centile, AC 90th, MESERET NL- having a boy! No complaints/concerns at this time- feels ok overall. PAST MEDICAL HISTORY Diagnosis Date Asthma (HCC) Bipolar PAST SURGICAL HISTORY Procedure Laterality Date SECTION HX 07/08/2020 primary d/t Gestational diabetes- suspected LGA TONSILLECTOMY AND ADENOIDECTOMY 2006 FAMILY HISTORY Problem Relation Age of Onset No Known Problems Sister No Known Problems Brother Diabetes Maternal Grandfather Social History Tobacco Use Smoking status: Never Smokeless tobacco: Never Vaping Use Vaping status: Former Substance Use Topics Alcohol use: Not Currently Drug use: Never Current Outpatient Medications Medication Sig Dispense Refill insulin NPH (HUMULIN N NPH INSULIN KWIKPEN) 100 unit/mL (3 mL) injection pen 32 units at bedtime 5 each 11 metoclopramide HCl (REGLAN) 5 mg tablet Take 1 tablet by mouth four times a day as needed (headache, nausea). 30 tablet 0 insulin lispro (HUMALOG KWIKPEN) 100 unit/mL 5-10-10 units prior to meals + scale upto 55 units/day . 10 each 11 diphenhydrAMINE (UNISOM SLEEPMINIS) 25 mg capsule Take 1 capsule by mouth at bedtime as needed. 48 capsule 0 ferrous sulfate 325 mg (65 mg iron) tablet Take 1 tablet by mouth every other day. famotidine (PEPCID) 20 mg tablet Take 1 tablet by mouth two times a day. 60 tablet 5 Insulin Montgomery, Disposable, (PEN NEEDLE) 32 gauge x 5/32 Use to inject insulin up to 4 times per day. 100 Each 5 Blood-Glucose Meter Use as directed to check glucose levels up to seven times daily. 1 Each 0 blood sugar diagnostic test strip Use as directed to check glucose levels up to seven times daily. 200 Strip 8 Lancets Use as directed to check glucose levels up to seven times daily. 200 Each 8 alcohol swabs (ALCOHOL PREP PADS) Use as directed to check glucose levels up to seven times daily. 200 Each 8 fluticasone (FLONASE) 50 mcg/actuation nasal spray Use 2 Sprays in each nostril once daily. Rinse mouth after use. 1 Each 0 aspirin, enteric coated (ECOTRIN LOW STRENGTH) 81 mg EC tablet Take 1 tablet by mouth once daily. 90 tablet 3 citalopram (CELEXA) 20 mg tablet Take 20 mg by mouth once daily. no115/iron/folic acid ( 19 ORAL) Take 1 tablet by mouth once daily. albuterol HFA (PROVENTIL HFA, VENTOLIN HFA) 90 mcg/actuation inhaler Inhale 2 Puffs as instructed every 4 hours as needed for wheezing/shortness of breath. 8 g 0 No current facility-administered medications for this visit. Allergies As of Date: 02/22/2025 Allergen Noted Reaction CEPHA (more content not included)... [facility] 02-20-2025 Telephone encounter Note Formatting of this note might be differe nt from the original. Reviewed BG data- responded as follows: Good morning- I reviewed your BG data- these numbers remain at goal for - continue your current regimen: NPH 32 units at bedtime Humalog 5-10-10 units prior to meals respectively, + 8 units of Humalog with higher carb meals. Will review again next week- thanks! KB [facility] 02-20-2025 Miscellaneous Notes Formatting of this note might be differe nt from the original. Reviewed BG data- responded as follows: Good morning- I reviewed your BG data- these numbers remain at goal for - continue your current regimen: NPH 32 units at bedtime Humalog 5-10-10 units prior to meals respectively, + 8 units of Humalog with higher carb meals. Will review again next week- thanks! KB documented in this encounter [facility] 02-19-2025 Note Indication Evaluation of growth, Evaluation of well-being Diabetes mellitus, Maternal obesity, BMI >30 Impression REMOTE READ: - Single, live, intrauterine . - presentation is cephalic. - The biometry is consistent with the assigned gestational dating. - The EFW is 2987 g, at the 62%. AC is at the 90%. - The amniotic fluid volume is normal amount with an MVP of 6.5 cm and an MESERET of 19 cm. - The placenta is posterior, fundal. - BPP 04/30. - No malformations visualized on a limited survey as detailed below. Recommendations - Weekly BPP alternating with NST q 3-4 days - Additional follow up as clinically indicated. Maternal Assessment Height 150 cm Height (ft) 4 ft Height (in) 11 in Physical Exam Initial weight (lb) 172 lb Initial BMI 34.74 kg/m Maternal assessment other: 2 Para 1 REMOTE READ Method Transabdominal ultrasound examination Scott . Number of fetuses: 1 Dating LMP on: 06/10/2024 GA by LMP 36 w + 2 d DEEP by LMP: 03/17/2025 GA by prior assessment 36 w + 2 d DEEP by prior assessment: 03/17/2025 Ultrasound examination on: 02/19/2025 GA by U/S based upon: AC, BPD, Femur, HC GA by U/S 36 w + 1 d DEEP by U/S: 03/18/2025 Assigned: based on stated DEEP, selected on 02/08/2025 Assigned GA 36 w + 2 d Assigned DEEP: 03/17/2025 General Evaluation Cardiac activity present. FHR 125 bpm. movements: present. Presentation: cephalic Placenta: Placental site: posterior, fundal Umbilical cord: Cord vessels: 3 vessel cord Amniotic fluid: Amount of AF: normal amount. MVP 6.5 cm. MESERET 19.0 cm. Q1 5.1 cm, Q2 4.4 cm, Q3 3.1 cm, Q4 6.5 cm Biophysical Profile 2: breathing movements 2: Gross body movements 2: tone 2: Amniotic fluid volume 04/30 Biophysical profile score Growth Overview Exam date GA BPD (mm) HC (mm) AC (mm) FL (mm) HL (mm) EFW (g) 10/09/2024 17w 2d 36.5 44% 138.1 40% 115.9 51% 21 18% 21.9 35% 171 20% 11/06/2024 21w 2d 48.4 23% 182.2 30% 164.4 50% 33 29% 33.3 46% 385 26% 12/03/2024 25w 1d 59.4 14% 223.6 26% 199.9 26% 43.1 30% 693 15% 12/25/2024 28w 2d 71.3 49% 268.5 60% 244 54% 50.6 25% 1200 36% 01/22/2025 32w 2d 80.8 47% 302.2 58% 291.9 75% 59.3 23% 1998 48% 02/19/2025 36w 2d 89.1 54% 327.5 53% 337.1 90% 67 27% 2987 62% Biometry Standard BPD 89.1 mm 36w 0d 54% Hadlock OFD 115.8 mm 36w 6d 60% Nicolaides HC 327.5 mm 36w 4d 53% Norma AC 337.1 mm 37w 4d 90% Hadlock Femur 67.0 mm 34w 1d 27% Norma EFW 2,987 g 36w 6d 62% Hadlock EFW (lb) 6 lb EFW (oz) 9 oz EFW by: Hadlock (HC-AC-FL) Extended Gravel Wheeler 5.4 mm Extremities / Bony Struc FL / HC 0.20 Other Structures FHR 125 bpm Anatomy Lateral ventricles: normal Cavum septi pellucidi: normal Cerebellum: normal Cisterna magna: normal 4-chamber view: normal RVOT view: normal LVOT view: normal 3-vessel view: normal Heart / Thorax Situs: situs solitus (normal) Diaphragm: normal Stomach: normal Kidneys: normal Bladder: normal sex: male Wants to know sex: yes Performed By: Edel Trinh RDMS, RVT Read By: Kristine Raza M.D. [facility] 02-19-2025 Instructions Yamila Azar MA - 02/19/2025 11:19 AM EDT SEQUENTIAL SCREENINGS [facility] offers sequential screenings for women who are interested in screenings for chromosomal abnormalities and certain defects during a . The sequential screen combines ultrasound and blood tests to determine the risk of chromosomal abnormalities, including Down's Syndrome (Trisomy 21) and Trisomy 18, as well as open neural tube defects including spina bifida. Ultrasound examination is performed between 11 weeks and 13 weeks gestational age. Blood tests are drawn after the ultrasound and again later in the between 15 and 21 weeks gestational age. Please let your physician know if you are interested in this testing. It will require an appointment with our reliability technician. This is not an ultrasound performed by a physician in our office during a routine visit. SIGNS AND SYMPTOMS OF LABOR 1. Contractions every 10 minutes or more often 2. Clear, pink, or brownish fluid (water) leaking from vagina 3. Feeling that baby is pushing down, pressure 4. Low, dull backache 5. Cramps that feel like a period 6. Cramps with or without diarrhea If you notice any of the above symptoms, contact our office at [phone] and ask to speak with a nurse. After hours, you can call doctors registry at [phone] OR call [facility] at [phone] and ask to have the doctor resource protection specialist paged. If you consider this an emergency, dial 4-1-3 or go to your nearest emergency department. NEED HELP? Are you dealing with a violent or abusive relationship? Are you a victim of rape or sexual assult? Call [facility] ([facility] 24 hour Crisis Hotline: 365.742.7068 or 352-987-2397. MANUAL Your Guide to a Healthy manual is now on-line. Visit [email or web address] to download your free copy documented in this encounter [facility] 02-19-2025 History and physical note Formatting of this note is different fro m the original. Pre-Op History and Physical HPI: The patient is a 24 year old female presenting for pre-operative visit. She is scheduled for , for repeat elective cs at 38 weeks- type 2 DM, obesity, h/o CS on 03/05/25. Procedure discussed along with risks, benefits and complications. Other alternatives discussed for management. Consent form signed? Yes. PAST MEDICAL HISTORY Diagnosis Date Asthma (HCC) Bipolar PAST SURGICAL HISTORY Procedure Laterality Date SECTION HX 07/08/2020 primary d/t Gestational diabetes- suspected LGA TONSILLECTOMY & ADENOIDECTOMY 2006 Current Outpatient Medications Medication Sig Dispense Refill insulin NPH (HUMULIN N NPH INSULIN KWIKPEN) 100 unit/mL (3 mL) injection pen 32 units at bedtime 5 each 11 metoclopramide HCl (REGLAN) 5 mg tablet Take 1 tablet by mouth four times a day as needed (headache, nausea). 30 tablet 0 insulin lispro (HUMALOG KWIKPEN) 100 unit/mL 5-10-10 units prior to meals + scale upto 55 units/day . 10 each 11 diphenhydrAMINE (UNISOM SLEEPMINIS) 25 mg capsule Take 1 capsule by mouth at bedtime as needed. 48 capsule 0 ferrous sulfate 325 mg (65 mg iron) tablet Take 1 tablet by mouth every other day. famotidine (PEPCID) 20 mg tablet Take 1 tablet by mouth two times a day. 60 tablet 5 Insulin Montgomery, Disposable, (PEN NEEDLE) 32 gauge x 5/32 Use to inject insulin up to 4 times per day. 100 Each 5 Blood-Glucose Meter Use as directed to check glucose levels up to seven times daily. 1 Each 0 blood sugar diagnostic test strip Use as directed to check glucose levels up to seven times daily. 200 Strip 8 Lancets Use as directed to check glucose levels up to seven times daily. 200 Each 8 alcohol swabs (ALCOHOL PREP PADS) Use as directed to check glucose levels up to seven times daily. 200 Each 8 fluticasone (FLONASE) 50 mcg/actuation nasal spray Use 2 Sprays in each nostril once daily. Rinse mouth after use. 1 Each 0 aspirin, enteric coated (ECOTRIN LOW STRENGTH) 81 mg EC tablet Take 1 tablet by mouth once daily. 90 tablet 3 citalopram (CELEXA) 20 mg tablet Take 20 mg by mouth once daily. no115/iron/folic acid ( 19 ORAL) Take 1 tablet by mouth once daily. albuterol HFA (PROVENTIL HFA, VENTOLIN HFA) 90 mcg/actuation inhaler Inhale 2 Puffs as instructed every 4 hours as needed for wheezing/shortness of breath. 8 g 0 No current facility-administered medications for this visit. ALLERGIES: Cephalexin PERSONAL HISTORY: Social History Tobacco Use Smoking status: Never Smokeless tobacco: Never Vaping Use Vaping status: Former Substance Use Topics Alcohol use: Not Currently Drug use: Never FAMILY HISTORY: FAMILY HISTORY Problem Relation Age of Onset No Known Problems Sister No Known Problems Brother Diabetes Maternal Grandfather REVIEW OF SYMPTOMS: negative except as noted above PHYSICAL EXAMINATION: VITALS: Last menstrual period 06/10/2024. GENERAL: The patient is well nourished, well hydrated in no acute distress. , The patient is oriented to time, place, and person. NECK: full range of motion Abd: gravid, non tender IMPRESSION: 24yo with h/o CS, Type 2 Dm, Obesity- scheduled for CS PLAN: Repeat cs at 38 weeks Pt has been counseled on risks/benefits and alternatives of surgery including but not limited to anesthesia, bleeding, infection, injury to pelvic structures including bowel, bladder, ureters and vessels. Pt wishes to proceed with surgery at this time. Risk of hemorrhage reviewed Pre and post op instructions reviewed I have reviewed and updated past medical and surgical history, medications and allergies Mayra Vincent MD [facility] 02-19-2025 History and physical note Formatting of this note is different fro m the original. Pre-Op History and Physical HPI: The patient is a 24 year old female presenting for pre-operative visit. She is scheduled for , for repeat elective cs at 38 weeks- type 2 DM, obesity, h/o CS on 03/05/25. Procedure discussed along with risks, benefits and complications. Other alternatives discussed for management. Consent form signed? Yes. PAST MEDICAL HISTORY Diagnosis Date Asthma (HCC) Bipolar PAST SURGICAL HISTORY Procedure Laterality Date SECTION HX 07/08/2020 primary d/t Gestational diabetes- suspected LGA TONSILLECTOMY & ADENOIDECTOMY <AGE 12 2005 Current Outpatient Medications Medication Sig Dispense Refill insulin NPH (HUMULIN N NPH INSULIN KWIKPEN) 100 unit/mL (3 mL) injection pen 32 units at bedtime 5 each 11 metoclopramide HCl (REGLAN) 5 mg tablet Take 1 tablet by mouth four times a day as needed (headache, nausea). 30 tablet 0 insulin lispro (HUMALOG KWIKPEN) 100 unit/mL 5-10-10 units prior to meals + scale upto 55 units/day . 10 each 11 diphenhydrAMINE (UNISOM SLEEPMINIS) 25 mg capsule Take 1 capsule by mouth at bedtime as needed. 48 capsule 0 ferrous sulfate 325 mg (65 mg iron) tablet Take 1 tablet by mouth every other day. famotidine (PEPCID) 20 mg tablet Take 1 tablet by mouth two times a day. 60 tablet 5 Insulin [place], Disposable, (PEN NEEDLE) 32 gauge x 5/32 Use to inject insulin up to 4 times per day. 100 Each 5 Blood-Glucose Meter Use as directed to check glucose levels up to seven times daily. 1 Each 0 blood sugar diagnostic test strip Use as directed to check glucose levels up to seven times daily. 200 Strip 8 Lancets Use as directed to check glucose levels up to seven times daily. 200 Each 8 alcohol swabs (ALCOHOL PREP PADS) Use as directed to check glucose levels up to seven times daily. 200 Each 8 fluticasone (FLONASE) 50 mcg/actuation nasal spray Use 2 Sprays in each nostril once daily. Rinse mouth after use. 1 Each 0 aspirin, enteric coated (ECOTRIN LOW STRENGTH) 81 mg EC tablet Take 1 tablet by mouth once daily. 90 tablet 3 citalopram (CELEXA) 20 mg tablet Take 20 mg by mouth once daily. no115/iron/folic acid ( 19 ORAL) Take 1 tablet by mouth once daily. albuterol HFA (PROVENTIL HFA, VENTOLIN HFA) 90 mcg/actuation inhaler Inhale 2 Puffs as instructed every 4 hours as needed for wheezing/shortness of breath. 8 g 0 No current facility-administered medications for this visit. ALLERGIES: Cephalexin PERSONAL HISTORY: Social History Tobacco Use Smoking status: Never Smokeless tobacco: Never Vaping Use Vaping status: Former Substance Use Topics Alcohol use: Not Currently Drug use: Never FAMILY HISTORY: FAMILY HISTORY Problem Relation Age of Onset No Known Problems Sister No Known Problems Brother Diabetes Maternal Grandfather REVIEW OF SYMPTOMS: negative except as noted above PHYSICAL EXAMINATION: VITALS: Last menstrual period 06/10/2024. GENERAL: The patient is well nourished, well hydrated in no acute distress. , The patient is oriented to time, place, and person. NECK: full range of motion Abd: gravid, non tender IMPRESSION: 24yo with h/o CS, Type 2 Dm, Obesity- scheduled for CS PLAN: Repeat cs at 38 weeks Pt has been counseled on risks/benefits and alternatives of surgery including but not limited to anesthesia, bleeding, infection, injury to pelvic structures including bowel, bladder, ureters and vessels. Pt wishes to proceed with surgery at this time. Risk of hemorrhage reviewed Pre and post op instructions reviewed I have reviewed and updated past medical and surgical history, medications and allergies Mayra Vincent MD documented in this encounter [facility] 02-19-2025 Progress note Formatting of this note might be differe nt from the original. DM-Pt doing well. Denies vaginal Bleeding, Leaking fluid, or regular Contractions. Pt reports good movement. Physical Exam: Gen: female in no apparent distress Abd: soft, Gravid. Non tender to palpation. See flow sheet Participation of a fellow, resident, medical student, or advanced practice provider student in performing the sensitive examination was discussed with the patient or authorized senior sales representative. The patient or authorized senior sales representative has agreed to proceed with the sensitive examination. @ 36.2 weeks Assessment & Plan Supervision of high risk in third trimester (HCC) Pre-existing diabetes mellitus in in third trimester (HCC) Continue weekly BPP and NSTs weekly Endocrinology for insulin mgmt Did not have log today Previous section Repeat cs scheduled for 38 weeks Consent obtained today with preop Anemia complicating , third trimester (HCC) Obesity during (HCC) Growth US pending today NST Mayra aCm MD [facility] 02-19-2025 Miscellaneous Notes Formatting of this note might be differe nt from the original. DM-Pt doing well. Denies vaginal Bleeding, Leaking fluid, or regular Contractions. Pt reports good movement. Physical Exam: Gen: female in no apparent distress Abd: soft, Gravid. Non tender to palpation. See flow sheet Participation of a fellow, resident, medical student, or advanced practice provider student in performing the sensitive examination was discussed with the patient or authorized senior sales representative. The patient or authorized senior sales representative has agreed to proceed with the sensitive examination. @ 36.2 weeks Assessment & Plan Supervision of high risk in third trimester (HCC) Pre-existing diabetes mellitus in in third trimester (HCC) Continue weekly BPP and NSTs weekly Endocrinology for insulin mgmt Did not have log today Previous section Repeat cs scheduled for 38 weeks Consent obtained today with preop Anemia complicating , third trimester (HCC) Obesity during (HCC) Growth US pending today NST Mayra Cam MD documented in this encounter [facility] 02-11-2025 Note HNO ID: [id number] Author: MELISSA AGUILERA MD Service: ? Author Type: Physician Type: Progress Notes Filed: 02/11/2025 20:28 Note Text: NST SUMMARY PROVIDER ASSESSMENT AND INTERPRETATION Indications for NST: Diabetes - Insulin Controlled Baseline: 140 Variability: Moderate Accelerations: Present 15 X 15 Decelerations: None Interpretation: Reactive SIGNATURE: Melissa Aguilera MD [facility] 02-11-2025 Note HNO ID: [id number] Author: MELISSA AGUILERA MD Service: ? Author Type: Physician Type: Progress Notes Filed: 02/11/2025 20:28 Note Text: Val Ruiz 24 year old is here for her injection of Rhophylac. Val Ruiz Antibody Screen (no units) Date Value 09/11/2024 Negative Val Ruiz is RH Negative Rhophylac was given without incident. See immunizations for details of immunizations administered today. Provider IVY was present in office at time of injection Val Ruiz was given her Rhophylac pocket card. Lisa Thompson RN [facility] 02-08-2025 Note Indication Evaluation of well-being Diabetes mellitus, Maternal obesity, BMI >30 Impression - Single, live, intrauterine . - presentation is cephalic. - The amniotic fluid volume is normal amount with an MVP of 5.9 cm and an MESERET of 20.2 cm. - The placenta is posterior, fundal. - BPP 8/8. Recommendations Continue planned testing Maternal Assessment Height 150 cm Height (ft) 4 ft Height (in) 11 in Physical Exam Initial weight (lb) 172 lb Initial BMI 34.74 kg/m Maternal assessment other: 2 Para 1 REMOTE READ Growth Overview Exam date GA BPD (mm) HC (mm) AC (mm) FL (mm) HL (mm) EFW (g) 10/09/2024 17w 2d 36.5 44% 138.1 40% 115.9 51% 21 18% 21.9 35% 171 20% 11/06/2024 21w 2d 48.4 23% 182.2 30% 164.4 50% 33 29% 33.3 46% 385 26% 12/03/2024 25w 1d 59.4 14% 223.6 26% 199.9 26% 43.1 30% 693 15% 12/25/2024 28w 2d 71.3 49% 268.5 60% 244 54% 50.6 25% 1200 36% 01/22/2025 32w 2d 80.8 47% 302.2 58% 291.9 75% 59.3 23% 1998 48% Method Transabdominal ultrasound examination Scott . Number of fetuses: 1 Dating LMP on: 06/10/2024 GA by LMP 34 w + 5 d DEEP by LMP: 03/17/2025 GA by prior assessment 34 w + 5 d DEEP by prior assessment: 03/17/2025 Assigned: based on stated DEEP, selected on 02/08/2025 Assigned GA 34 w + 5 d Assigned DEEP: 03/17/2025 General Evaluation Cardiac activity present. FHR 140 bpm. movements: present. Presentation: cephalic Placenta: Placental site: posterior, fundal Umbilical cord: Cord vessels: 3 vessel cord Amniotic Fluid Assessment Amount of AF: normal amount MVP 5.9 cm. MESERET 20.2 cm. Q1 3.3 cm, Q2 5.9 cm, Q3 5.1 cm, Q4 5.9 cm Biophysical Profile 2: breathing movements 2: Gross body movements 2: tone 2: Amniotic fluid volume 8/8 Biophysical profile score Anatomy sex: male. Performed By: Edel Trinh RDMS, RVT Read By: Ly Nugent M.D. [facility] 02-04-2025 Note HNO ID: [id number] Author: GEE CARLIN MD Service: ? Author Type: Physician Type: Progress Notes Filed: 02/04/2025 14:25 Note Text: NST SUMMARY PROVIDER ASSESSMENT AND INTERPRETATION Val Ruiz is a 24 year old female, , who is at 34w1d with an DEEP of 03/17/2025, Date entered prior to episode creation dating method. Indications for NST: Diabetes - Insulin Controlled Baseline: 140 Variability: Moderate Accelerations: Present 15 X 15 Decelerations: None Contractions: TOCO: None Interpretation: Reactive SIGNATURE: Gee Carlin MD [facility] 02-04-2025 History of Present illness Narrative Formatting of this note might be differe nt from the original. NST SUMMARY PROVIDER ASSESSMENT AND INTERPRETATION Val Ruiz is a 24 year old female, , who is at 34w1d with an DEEP of 03/17/2025, Date entered prior to episode creation dating method. Indications for NST: Diabetes - Insulin Controlled Baseline: 140 Variability: Moderate Accelerations: Present 15 X 15 Decelerations: None Contractions: TOCO: None Interpretation: Reactive SIGNATURE: Gee Carlin MD documented in this encounter [facility] 02-04-2025 Progress note Formatting of this note might be differe nt from the original. RR- VB No. LOF No. CTXS No. Movement: present. Other c/o: mild persistent frontal TERRY, pressure. No epigastric pain but occas RUQ pain w/ certain movement. Medication list reviewed. SENSITIVE EXAM: Sensitive exam not performed. Physical Exam See Flow Sheet Abd: soft, nontender, gravid Ext: edema: 1+, symetrical: Yes, DTRS: negative, clonus: Absent A/P 34w1d Estimated Date of Delivery: 03/17/25 Assessment & Plan Supervision of high risk in third trimester (HCC) Orders: URINE OB DIP B/O PROTEIN / CREATININE RATIO; Future COMPLETE BLOOD COUNT; Future COMPREHENSIVE METABOLIC PANEL; Future Previous section plans repeat, has scheduled Orders: URINE OB DIP B/O PROTEIN / CREATININE RATIO; Future COMPLETE BLOOD COUNT; Future COMPREHENSIVE METABOLIC PANEL; Future Pre-existing diabetes mellitus in in third trimester (HCC) Reports BS to endocrine, reports good control Orders: URINE OB DIP B/O PROTEIN / CREATININE RATIO; Future COMPLETE BLOOD COUNT; Future COMPREHENSIVE METABOLIC PANEL; Future 34 weeks gestation of ([facility]) Orders: URINE OB DIP B/O PROTEIN / CREATININE RATIO; Future COMPLETE BLOOD COUNT; Future COMPREHENSIVE METABOLIC PANEL; Future Headache in , antepartum, third trimester ([facility]) check labs, d/w her symptomatic measures, trial of reglan Orders: PROTEIN / CREATININE RATIO; Future COMPLETE BLOOD COUNT; Future COMPREHENSIVE METABOLIC PANEL; Future NST reactive, next growth scan as scheduled. check preeclampsia labs to be thorough, return for signs/symptoms of severe preeclampsia Gee Carlin M.D. [facility] 02-04-2025 Miscellaneous Notes Formatting of this note might be differe nt from the original. RR- VB No. LOF No. CTXS No. Movement: present. Other c/o: mild persistent frontal TERRY, pressure. No epigastric pain but occas RUQ pain w/ certain movement. Medication list reviewed. SENSITIVE EXAM: Sensitive exam not performed. Physical Exam See Flow Sheet Abd: soft, nontender, gravid Ext: edema: 1+, symetrical: Yes, DTRS: negative, clonus: Absent A/P 34w1d Estimated Date of Delivery: 03/17/25 Assessment & Plan Supervision of high risk in third trimester ([facility]) Orders: URINE OB DIP B/O PROTEIN / CREATININE RATIO; Future COMPLETE BLOOD COUNT; Future COMPREHENSIVE METABOLIC PANEL; Future Previous section plans repeat, has scheduled Orders: URINE OB DIP B/O PROTEIN / CREATININE RATIO; Future COMPLETE BLOOD COUNT; Future COMPREHENSIVE METABOLIC PANEL; Future Pre-existing diabetes mellitus in in third trimester ([facility]) Reports BS to endocrine, reports good control Orders: URINE OB DIP B/O PROTEIN / CREATININE RATIO; Future COMPLETE BLOOD COUNT; Future COMPREHENSIVE METABOLIC PANEL; Future 34 weeks gestation of ([facility]) Orders: URINE OB DIP B/O PROTEIN / CREATININE RATIO; Future COMPLETE BLOOD COUNT; Future COMPREHENSIVE METABOLIC PANEL; Future Headache in , antepartum, third trimester ([facility]) check labs, d/w her symptomatic measures, trial of reglan Orders: PROTEIN / CREATININE RATIO; Future COMPLETE BLOOD COUNT; Future COMPREHENSIVE METABOLIC PANEL; Future NST reactive, next growth scan as scheduled. check preeclampsia labs to be thorough, return for signs/symptoms of severe preeclampsia Gee Carlin M.D. documented in this encounter [facility] 02-04-2025 Instructions Janice Pina MA - 02/04/2025 1:55 PM EDT SEQUENTIAL SCREENINGS The [facility] offers sequential screenings for women who are interested in screenings for chromosomal abnormalities and certain defects during a . The sequential screen combines ultrasound and blood tests to determine the risk of chromosomal abnormalities, including Down's Syndrome (Trisomy 21) and Trisomy 18, as well as open neural tube defects including spina bifida. Ultrasound examination is performed between 11 weeks and 13 weeks gestational age. Blood tests are drawn after the ultrasound and again later in the between 15 and 21 weeks gestational age. Please let your physician know if you are interested in this testing. It will require an appointment with our reliability technician. This is not an ultrasound performed by a physician in our office during a routine visit. SIGNS AND SYMPTOMS OF LABOR 1. Contractions every 10 minutes or more often 2. Clear, pink, or brownish fluid (water) leaking from vagina 3. Feeling that baby is pushing down, pressure 4. Low, dull backache 5. Cramps that feel like a period 6. Cramps with or without diarrhea If you notice any of the above symptoms, contact our office at [phone] and ask to speak with a nurse. After hours, you can call doctors registry at [phone] OR call [facility] at [phone] and ask to have the doctor resource protection specialist paged. If you consider this an emergency, dial 8-8-4 or go to your nearest emergency department. NEED HELP? Are you dealing with a violent or abusive relationship? Are you a victim of rape or sexual assult? Call [facility] ([facility] 24 hour Crisis Hotline: 319.585.5115 or 657-095-0248. MANUAL Your Guide to a Healthy manual is now on-line. Visit [email or web address] to download your free copy documented in this encounter [facility] 02-02-2025 Telephone encounter Note Formatting of this note might be differe nt from the original. Reviewed BG data- responded as follows: Good afternoon- I reviewed your BG data- these numbers remain at goal for - continue your current regimen: NPH 28 units at bedtime Humalog 5-10-10 units prior to meals respectively, + 8 units of Humalog with higher carb meals. Will review again next week- thanks! KB [facility] 02-02-2025 Miscellaneous Notes Formatting of this note might be differe nt from the original. Reviewed BG data- responded as follows: Good afternoon- I reviewed your BG data- these numbers remain at goal for - continue your current regimen: NPH 28 units at bedtime Humalog 5-10-10 units prior to meals respectively, + 8 units of Humalog with higher carb meals. Will review again next week- thanks! KB documented in this encounter [facility] 02-01-2025 Note Indication Evaluation of well-being Diabetes mellitus, Maternal obesity, BMI >30 Impression - Single, live, intrauterine . - presentation is cephalic. - The amniotic fluid volume is normal amount with an MVP of 6.3 cm and an MESERET of 20 cm. - The placenta is posterior, fundal. - BPP 8/8. Recommendations Continue planned surveillance Maternal Assessment Height 150 cm Height (ft) 4 ft Height (in) 11 in Physical Exam Initial weight (lb) 172 lb Initial BMI 34.74 kg/m Maternal assessment other: 2 Para 1 REMOTE READ Growth Overview Exam date GA BPD (mm) HC (mm) AC (mm) FL (mm) HL (mm) EFW (g) 10/09/2024 17w 2d 36.5 44% 138.1 40% 115.9 51% 21 18% 21.9 35% 171 20% 11/06/2024 21w 2d 48.4 23% 182.2 30% 164.4 50% 33 29% 33.3 46% 385 26% 12/03/2024 25w 1d 59.4 14% 223.6 26% 199.9 26% 43.1 30% 693 15% 12/25/2024 28w 2d 71.3 49% 268.5 60% 244 54% 50.6 25% 1200 36% 01/22/2025 32w 2d 80.8 47% 302.2 58% 291.9 75% 59.3 23% 1998 48% Method Transabdominal ultrasound examination Scott . Number of fetuses: 1 Dating LMP on: 06/10/2024 GA by LMP 33 w + 5 d DEEP by LMP: 03/17/2025 GA by prior assessment 33 w + 5 d DEEP by prior assessment: 03/17/2025 Assigned: based on stated DEEP, selected on 02/01/2025 Assigned GA 33 w + 5 d Assigned DEEP: 03/17/2025 General Evaluation Cardiac activity present. FHR 142 bpm. movements: present. Presentation: cephalic Placenta: Placental site: posterior, fundal Amniotic Fluid Assessment Amount of AF: normal amount MVP 6.3 cm. MESERET 20.0 cm. Q1 5.2 cm, Q2 6.3 cm, Q3 4.4 cm, Q4 4.0 cm Biophysical Profile 2: breathing movements 2: Gross body movements 2: tone 2: Amniotic fluid volume 8/8 Biophysical profile score Anatomy sex: male. Performed By: Edel Trinh RDMS, T Read By: Ly Nugent M.D. [facility] 01-28-2025 Note HNO ID: [id number] Author: ALFRED ARCOS MD Service: ? Author Type: Physician Type: Progress Notes Filed: 01/28/2025 14:57 Note Text: NST SUMMARY PROVIDER ASSESSMENT AND INTERPRETATION Val Ruiz is a 24 year old female, , who is at 33w1d with an DEEP of 03/17/2025, Date entered prior to episode creation dating method. Indications for NST: Diabetes - Insulin Controlled Baseline: 125 Variability: Moderate Accelerations: Present 15 X 15 Decelerations: Variable Contractions: TOCO: None Interpretation: Reactive SIGNATURE: Alfred Arcos MD [facility] 01-28-2025 History of Present illness Narrative Formatting of this note might be differe nt from the original. NST SUMMARY PROVIDER ASSESSMENT AND INTERPRETATION Val Ruiz is a 24 year old female, , who is at 33w1d with an DEEP of 03/17/2025, Date entered prior to episode creation dating method. Indications for NST: Diabetes - Insulin Controlled Baseline: 125 Variability: Moderate Accelerations: Present 15 X 15 Decelerations: Variable Contractions: TOCO: None Interpretation: Reactive SIGNATURE: Alfred Arcos MD documented in this encounter [facility] 01-28-2025 Instructions Yamila Azar MA - 01/28/2025 2:19 PM EDT SEQUENTIAL SCREENINGS The [facility] offers sequential screenings for women who are interested in screenings for chromosomal abnormalities and certain defects during a . The sequential screen combines ultrasound and blood tests to determine the risk of chromosomal abnormalities, including Down's Syndrome (Trisomy 21) and Trisomy 18, as well as open neural tube defects including spina bifida. Ultrasound examination is performed between 11 weeks and 13 weeks gestational age. Blood tests are drawn after the ultrasound and again later in the between 15 and 21 weeks gestational age. Please let your physician know if you are interested in this testing. It will require an appointment with our reliability technician. This is not an ultrasound performed by a physician in our office during a routine visit. SIGNS AND SYMPTOMS OF LABOR 1. Contractions every 10 minutes or more often 2. Clear, pink, or brownish fluid (water) leaking from vagina 3. Feeling that baby is pushing down, pressure 4. Low, dull backache 5. Cramps that feel like a period 6. Cramps with or without diarrhea If you notice any of the above symptoms, contact our office at [phone] and ask to speak with a nurse. After hours, you can call doctors registry at [phone] OR call [facility] at [phone] and ask to have the doctor resource protection specialist paged. If you consider this an emergency, dial 9--1 or go to your nearest emergency department. NEED HELP? Are you dealing with a violent or abusive relationship? Are you a victim of rape or sexual assult? Call [facility] ([place]) 24 hour Crisis Hotline: 270.491.9037 or 584-907-6062. MANUAL Your Guide to a Healthy manual is now on-line. Visit [email or web address] to download your free copy documented in this encounter [facility] 01-27-2025 Telephone encounter Note Formatting of this note might be differe nt from the original. Reviewed BG data- responded as follows: Good afternoon- I reviewed your BG data- the majority of these values remain at goal for - continue your current regimen as you are doing: NPH 28 units at bedtime Humalog 5-10-10 units prior to meals respectively, + 8 units of Humalog with higher carb meals. Will review again next week- thanks! KB [facility] 01-27-2025 Miscellaneous Notes Formatting of this note might be differe nt from the original. Reviewed BG data- responded as follows: Good afternoon- I reviewed your BG data- the majority of these values remain at goal for - continue your current regimen as you are doing: NPH 28 units at bedtime Humalog 5-10-10 units prior to meals respectively, + 8 units of Humalog with higher carb meals. Will review again next week- thanks! KB documented in this encounter [facility] 01-26-2025 Note Indication Evaluation of well-being Diabetes mellitus, Maternal obesity, BMI >30 Impression - Single, live, intrauterine . - The amniotic fluid volume is normal amount with an MVP of 7.3 cm and an MESERET of 22.7 cm. - The placenta is posterior, fundal. - BPP 04/30. Recommendations Continue planned testing Maternal Assessment Height 150 cm Height (ft) 4 ft Height (in) 11 in Physical Exam Initial weight (lb) 172 lb Initial BMI 34.74 kg/m Maternal assessment other: 2 Para 1 REMOTE READ Growth Overview Exam date GA BPD (mm) HC (mm) AC (mm) FL (mm) HL (mm) EFW (g) 10/09/2024 17w 2d 36.5 44% 138.1 40% 115.9 51% 21 18% 21.9 35% 171 20% 11/06/2024 21w 2d 48.4 23% 182.2 30% 164.4 50% 33 29% 33.3 46% 385 26% 12/03/2024 25w 1d 59.4 14% 223.6 26% 199.9 26% 43.1 30% 693 15% 12/25/2024 28w 2d 71.3 49% 268.5 60% 244 54% 50.6 25% 1200 36% 01/22/2025 32w 2d 80.8 47% 302.2 58% 291.9 75% 59.3 23% 1998 48% Method Transabdominal ultrasound examination Scott . Number of fetuses: 1 Dating LMP on: 06/10/2024 GA by LMP 32 w + 6 d DEEP by LMP: 03/17/2025 GA by prior assessment 32 w + 6 d DEEP by prior assessment: 03/17/2025 Assigned: based on stated DEEP, selected on 01/26/2025 Assigned GA 32 w + 6 d Assigned DEEP: 03/17/2025 General Evaluation Cardiac activity present. FHR 131 bpm. movements: present. Presentation: cephalic Placenta: Placental site: posterior, fundal Amniotic Fluid Assessment Amount of AF: normal amount MVP 7.3 cm. MESERET 22.7 cm. Q1 6.2 cm, Q2 7.3 cm, Q3 3.7 cm, Q4 5.6 cm Biophysical Profile 2: breathing movements 2: Gross body movements 2: tone 2: Amniotic fluid volume 8/8 Biophysical profile score Anatomy sex: male. Performed By: Edel Trinh RDMS, RVT Read By: Ly Nugent M.D. [facility] 01-25-2025 Note Indication Evaluation of growth, Evaluation of well-being Diabetes mellitus, Maternal obesity, BMI >30 Impression - Single, live, intrauterine . - The biometry is consistent with the assigned gestational dating. - The EFW is 1997 g, at the 48%. AC is at the 75%. - The amniotic fluid volume is normal amount with an MVP of 7.2 cm and an MESERET of 21.3 cm. - The placenta is posterior, fundal. - BPP 6/8. - No malformations visualized on a limited survey as detailed below. Recommendations For NST Continue planned testing Maternal Assessment Height 150 cm Height (ft) 4 ft Height (in) 11 in Physical Exam Initial weight (lb) 172 lb Initial BMI 34.74 kg/m Maternal assessment other: 2 Para 1 REMOTE READ Method Transabdominal ultrasound examination Scott . Number of fetuses: 1 Dating LMP on: 06/10/2024 GA by LMP 32 w + 2 d DEEP by LMP: 03/17/2025 GA by prior assessment 32 w + 2 d DEEP by prior assessment: 03/17/2025 Ultrasound examination on: 01/22/2025 GA by U/S based upon: AC, BPD, Femur, HC GA by U/S 32 w + 2 d DEEP by U/S: 03/17/2025 Assigned: based on stated DEEP, selected on 12/25/2024 Assigned GA 32 w + 2 d Assigned DEEP: 03/17/2025 General Evaluation Cardiac activity present. FHR 146 bpm. movements: present. Presentation: cephalic Placenta: Placental site: posterior, fundal Umbilical cord: Cord vessels: 3 vessel cord Amniotic fluid: Amount of AF: normal amount. MVP 7.2 cm. MESERET 21.3 cm. Q1 5.3 cm, Q2 3.6 cm, Q3 7.2 cm, Q4 5.2 cm Biophysical Profile 0: breathing movements 2: Gross body movements 2: tone 2: Amniotic fluid volume 6/8 Biophysical profile score Growth Overview Exam date GA BPD (mm) HC (mm) AC (mm) FL (mm) HL (mm) EFW (g) 10/09/2024 17w 2d 36.5 44% 138.1 40% 115.9 51% 21 18% 21.9 35% 171 20% 11/06/2024 21w 2d 48.4 23% 182.2 30% 164.4 50% 33 29% 33.3 46% 385 26% 12/03/2024 25w 1d 59.4 14% 223.6 26% 199.9 26% 43.1 30% 693 15% 12/25/2024 28w 2d 71.3 49% 268.5 60% 244 54% 50.6 25% 1200 36% 01/22/2025 32w 2d 80.8 47% 302.2 58% 291.9 75% 59.3 23% 1997 48% Biometry Standard BPD 80.8 mm 32w 3d 47% Hadlock OFD 108.0 mm 32w 2d 59% Nicolaides HC 302.2 mm 32w 5d 58% Norma AC 291.9 mm 33w 1d 75% Hadlock Femur 59.3 mm 30w 6d 23% Norma EFW 1,998 g 32w 1d 48% Hadlock EFW (lb) 4 lb EFW (oz) 6 oz EFW by: Hadlock (HC-AC-FL) Extremities / Bony Struc FL / HC 0.20 Other Structures FHR 146 bpm Anatomy Lateral ventricles: normal Cavum septi pellucidi: normal Cerebellum: normal Cisterna magna: normal 4-chamber view: normal RVOT view: normal LVOT view: normal 3-vessel view: normal Heart / Thorax Situs: situs solitus (normal) Diaphragm: normal Stomach: normal Kidneys: normal Bladder: normal sex: male Wants to know sex: yes Performed By: Edel Trinh RDMS, RVT Read By: Ly Nugent M.D. [facility] 01-22-2025 Note HNO ID: [id number] Author: ALFRED ARCOS MD Service: ? Author Type: Physician Type: Progress Notes Filed: 01/22/2025 15:27 Note Text: NST SUMMARY PROVIDER ASSESSMENT AND INTERPRETATION Val Ruiz is a 24 year old female, , who is at 32w2d with an DEEP of 03/17/2025, Date entered prior to episode creation dating method. Indications for NST: Diabetes - Insulin Controlled AND BPP 6/8 Baseline: 125 Variability: Moderate Accelerations: Present 15 X 15 Decelerations: None Contractions: TOCO: None Interpretation: Reactive SIGNATURE: Alfred Arcos MD [facility] 01-22-2025 History of Present illness Narrative Formatting of this note might be differe nt from the original. NST SUMMARY PROVIDER ASSESSMENT AND INTERPRETATION Val Ruiz is a 24 year old female, , who is at 32w2d with an DEEP of 03/17/2025, Date entered prior to episode creation dating method. Indications for NST: Diabetes - Insulin Controlled & BPP 6/8 Baseline: 125 Variability: Moderate Accelerations: Present 15 X 15 Decelerations: None Contractions: TOCO: None Interpretation: Reactive SIGNATURE: Alfred Arcos MD documented in this encounter [facility] 01-22-2025 Evaluation + Plan note Associated Problem(s): Pre-existing diab etes mellitus in in second trimester ([facility]) Managed by endo. 2 times week testing ordered. Orders: URINE OB DIP B/O NON-STRESS TEST; Standing OBSTETRIC ULTRASOUND WHI; Standing [facility] 01-22-2025 Miscellaneous Notes Associated Problem(s): Pre-existing diab etes mellitus in in second trimester ([facility]) Managed by endo. 2 times week testing ordered. Orders: URINE OB DIP B/O NON-STRESS TEST; Standing OBSTETRIC ULTRASOUND WHI; Standing KJ - S: Val denies LOF, contractions or vaginal bleeding. O: 32w2d, see flow sheet SENSITIVE EXAM: Sensitive exam not performed. A/P: Assessment & Plan 32 weeks gestation of ([facility]) Orders: URINE OB DIP B/O Pre-existing diabetes mellitus in in second trimester ([facility]) Managed by endo. 2 times week testing ordered. Orders: URINE OB DIP B/O NON-STRESS TEST; Standing OBSTETRIC ULTRASOUND WHI; Standing Previous section Repeat scheduled. Orders: URINE OB DIP B/O Anemia complicating , third trimester ([facility]) S/p IV iron Orders: URINE OB DIP B/O Reviewed PTL & FM precautions Alfred Arcos MD documented in this encounter [facility] 01-22-2025 Progress note Formatting of this note might be differe nt from the original. KJ - S: Val denies LOF, contractions or vaginal bleeding. O: 32w2d, see flow sheet SENSITIVE EXAM: Sensitive exam not performed. A/P: Assessment & Plan 32 weeks gestation of ([facility]) Orders: URINE OB DIP B/O Pre-existing diabetes mellitus in in second trimester ([facility]) Managed by endo. 2 times week testing ordered. Orders: URINE OB DIP B/O NON-STRESS TEST; Standing OBSTETRIC ULTRASOUND WHI; Standing Previous section Repeat scheduled. Orders: URINE OB DIP B/O Anemia complicating , third trimester ([facility]) S/p IV iron Orders: URINE OB DIP B/O Reviewed PTL & FM precautions Alfred Arcos MD [facility] 01-22-2025 Instructions Irasema Navarro MA - 01/22/2025 2:36 PM EDT SEQUENTIAL SCREENINGS The [facility] offers sequential screenings for women who are interested in screenings for chromosomal abnormalities and certain defects during a . The sequential screen combines ultrasound and blood tests to determine the risk of chromosomal abnormalities, including Down's Syndrome (Trisomy 21) and Trisomy 18, as well as open neural tube defects including spina bifida. Ultrasound examination is performed between 11 weeks and 13 weeks gestational age. Blood tests are drawn after the ultrasound and again later in the between 15 and 21 weeks gestational age. Please let your physician know if you are interested in this testing. It will require an appointment with our reliability technician. This is not an ultrasound performed by a physician in our office during a routine visit. SIGNS AND SYMPTOMS OF LABOR 1. Contractions every 10 minutes or more often 2. Clear, pink, or brownish fluid (water) leaking from vagina 3. Feeling that baby is pushing down, pressure 4. Low, dull backache 5. Cramps that feel like a period 6. Cramps with or without diarrhea If you notice any of the above symptoms, contact our office at [phone] and ask to speak with a nurse. After hours, you can call doctors registry at [phone] OR call [facility] at [phone] and ask to have the doctor resource protection specialist paged. If you consider this an emergency, dial 9-1-1 or go to your nearest emergency department. NEED HELP? Are you dealing with a violent or abusive relationship? Are you a victim of rape or sexual assult? Call [facility] ([place]) 24 hour Crisis Hotline: 353.935.1821 or 390-113-1232. MANUAL Your Guide to a Healthy manual is now on-line. Visit [email or web address] to download your free copy documented in this encounter [facility] 01-21-2025 Note HNO ID: [id number] Author: ?, ?, ? Service: ? Author Type: ? Type: Progress Notes Filed: 01/21/2025 09:29 Note Text: Spoke with patient , scheduled 02/22/2025 @ 11:00 am (virtual appointment) [facility] 01-21-2025 History of Present illness Narrative Formatting of this note might be differe nt from the original. Spoke with patient , scheduled 02/22/2025 @ 11:00 am (virtual appointment) Reason for consultation: F/U- gestational diabetes mellitus Referring Physician: Melissa Aguilera MD My final recommendations will be communicated back to the requesting physician by way of shared Medical record or letter via US mail. This Team Access Model visit is a virtual encounter. It required patient-provider interaction for the medical decision making as documented below. I have communicated my name and active licensure. The patient's identity and physical location were verified at the time of this visit. Either the patient or their legal senior sales representative has been informed of the risks and benefits of -- and alternatives to -- treatment through a remote evaluation and consents to proceed with the evaluation remotely. HISTORY OF PRESENT ILLNESS; Ms. Ruiz is a 24 year old presenting at 32+ weeks gestation here for f/u regarding gestational diabetes mellitus. Her initial visit with ky was 10/24 . She was diagnosed with GDM after abnormal 1 hour GTT on 09/18 (BG 312 mg/dL). HbA1c at that time was 5.8%- suggestive of preexisting beta cell dysfunction (but not necessarily overt diabetes). She has a previous history of gestational diabetes- has a 4 year old daughter. State she was taking oral agents during that . 8lbs delivered by (failed induction). Family hx of diabetes in maternal grandfather. Mother and GDM in two pregnancies. Her prepregnancy weight was 168 lbs and her current weight is 188 lbs. Insulin was initiated at her initial visit with me and has been adjusted in between visits- most recently on 01/19. Her current regimen is as follows: NPH 28 units at bedtime Humalog 5-10-10 units prior to meals respectively, + 8 units of Humalog with higher carb meals. She has been checking her blood glucose 4 times daily- reports the following BG data today: Fasting 85-90 mg/dL 2 hour post meal in general less than 120 mg/dL (occasional outlier) Hypoglycemia frequency: n/a Hypoglycemia awareness: n/a Hyperglycemia Symptoms: denies blurry vision reports polyuria denies polydipsia reports nocturia denies rapid weight loss Last visit with OB was 01/07. Last u/s growth was 12/25- EFW 36th centile, AC 54th, MESERET NL- having a boy! Scheduling for march 05 at 38 weeks. No complaints/concerns at this time- feels ok overall. PAST MEDICAL HISTORY Diagnosis Date Asthma (HCC) Bipolar PAST SURGICAL HISTORY Procedure Laterality Date SECTION HX 07/08/2020 primary d/t Gestational diabetes- suspected LGA TONSILLECTOMY & ADENOIDECTOMY <AGE 12 2005 FAMILY HISTORY Problem Relation Age of Onset No Known Problems Sister No Known Problems Brother Diabetes Maternal Grandfather Social History Tobacco Use Smoking status: Never Smokeless tobacco: Never Vaping Use Vaping status: Former Substance Use Topics Alcohol use: Not Currently Drug use: Never Current Outpatient Medications Medication Sig Dispense Refill insulin NPH (HUMULIN N NPH INSULIN KWIKPEN) 100 unit/mL (3 mL) injection pen 28 units at bedtime 5 each 11 diphenhydrAMINE (UNISOM SLEEPMINIS) 25 mg capsule Take 1 capsule by mouth at bedtime as needed. 48 capsule 0 insulin lispro (HUMALOG KWIKPEN) 100 unit/mL 5-10-10 units prior to meals + scale upto 55 units/day . 10 Each 11 ferrous sulfate 325 mg (65 mg iron) tablet Take 1 tablet by mouth every other day. famotidine (PEPCID) 20 mg tablet Take 1 tablet by mouth two times a day. 60 tablet 5 Insulin Montgomery, Disposable, (PEN NEEDLE) 32 gauge x 5/32 Use to inject insulin up to 4 times per day. 100 Each 5 Blood-Glucose Meter Use as directed to check glucose levels up to seven times daily. 1 Each 0 blood sugar diagnostic test strip Use as directed to check glucose levels up to seven times daily. 200 Strip 8 Lancets Use as directed to check glucose levels up to seven times daily. 200 Each 8 alcohol swabs (ALCOHOL PREP PADS) Use as directed to check glucose levels up to seven times daily. 200 Each 8 fluticasone (FLONASE) 50 mcg/actuation nasal spray Use 2 Sprays in each nostril once daily. Rinse mouth after use. 1 Each 0 aspirin, enteric coated (ECOTRIN LOW STRENGTH) 81 mg EC tablet Take 1 tablet by mouth once daily. 90 tablet 3 citalopram (CELEXA) 20 mg tablet Take 20 mg by mouth once daily. no115/iron/folic acid ( 19 ORAL) Take 1 tablet by mouth once daily. albuterol HFA (PROVENTIL HFA, VENTOLIN HFA) 90 mcg/actuation inhaler Inhale 2 Puffs as instructed every 4 hours as needed for wheezing/shortness of breath. 8 g 0 No current facility-administered medications for this visit. Allergies As of Date: 01/21/2025 Allergen Noted Reaction CEPHALEXIN 05/01/2022 Rash Fully Assessed 01/20/2025 REVIEW OF SYSTEMS: General: no fever and no chills- weight gain appropriate for Skin: no rashes, pruritis or dry skin Eyes: no blurred or double vision or eye pain Cardiac: denies chest pain, heart palpitations or orthopnea Pulmonary: denies wheezing, productive cough or exertional dyspnea GI: denies nausea and denies vomiting Musc: denies history of upper or lower extremity weakness Reproductive: gravid at 32+ weeks gestation, menses regular prior to the Endocrine: complains of polyuria and nocturia Hematology: Negative for anemia, easy bleeding and bruising. PHYSICAL EXAM: No vitals as this was a virtual visit. GENERAL: Alert, no distress, cooperative SKIN: Skin color, texture, turgor normal. No rashes or lesions. HEAD/SINUSES: No significant findings EYES: sclera non-icteric, EOMs intact. ABDOMEN: gravid at 32+ weeks EXTREMITIES: Normal exam of the extremities NEURO: AAO x 3 no focal deficits The remainder of the physical exam is noncontributory. DATA: Hemoglobin A1C (%) Date Value 09/11/2024 5.8 Latest Ref Rng 09/18/2024 Glucose Scrn, Preg 74 - 134 mg/dL 312 (H) IMPRESSION: Ms. Ruiz is a 24 year old female at 32+ weeks gestation here for evaluation of gestational diabetes mellitus. RECOMMENDATIONS: 1. The patient was counseled regarding the maternal and risks of hyperglycemia during . risks include, but are not limited to: congenital abnormalities, hypoxia and stillbirth, macrosomia, shoulder dystocia and hypoglycemia. Maternal risks include increased risks of pre-eclampsia and delivery. 2. I recommend the patient check her blood glucose fasting and 2 hour after each meal, we have provided her with a glucometer if she does not have one. The following blood glucose targets were discussed: fasting blood glucose concentration between 60-90 mg/dL, and 2 hour postprandial blood glucose concentration of less than 120 mg/dL. She was encouraged to limit carbohydrate intake, to walk after meals, (if not contraindicated) and will be scheduled with our dietitian, (if not done already). Regarding her blood glucose management, I recommend she do the followin) check your sugars fasting (60-90 mg/dL) and 2 hours post meal (less than 120 mg/dL) 2) forward me your blood glucose data weekly ( )- 3) for now - continue your current regimen as you are doing: NPH 28 units at bedtime Humalog 5-10-10 units prior to meals respectively, + 8 units of Humalog with higher carb meals. 4) see me in 4 weeks (virtual visit ok) for f/u- my office will reach out to schedule this- Val will call us with any questions or concerns in the interim. 3. Patient will require repeat 2 hr 75g OGTT 8 weeks after delivery to ensure resolution of diabetes. She was counseled that her chances of future pregnancies complicated by diabetes are high, and her 5 year risk of developing diabetes approaches 50%. Adherence to proper diet and exercise regimen will help reduce these risks. I spent a total of 30 minutes on the date of the service which included preparing to see the patient, [id number] patient care, completing clinical documentation, obtaining and/or reviewing separately obtained history, performing a medically appropriate examination, counseling and educating the patient/family/caregiver, and ordering medications, tests, or procedures. Lalito Rocha DO documented in this encounter [facility] 01-21-2025 Note HNO ID: [id number] Author: LALITO ROCHA DO Service: ? Author Type: Physician Type: Progress Notes Filed: 01/21/2025 09:29 Note Text: Reason for consultation: F/U- gestational diabetes mellitus Referring Physician: Melissa Aguilera MD My final recommendations will be communicated back to the requesting physician by way of shared Medical record or letter via [place] mail. This Team Access Model visit is a virtual encounter. It required patient-provider interaction for the medical decision making as documented below. I have communicated my name and active licensure. The patient's identity and physical location were verified at the time of this visit. Either the patient or their legal senior sales representative has been informed of the risks and benefits of -- and alternatives to -- treatment through a remote evaluation and consents to proceed with the evaluation remotely. HISTORY OF PRESENT ILLNESS; Ms. Ruiz is a 24 year old presenting at 32+ weeks gestation here for f/u regarding gestational diabetes mellitus. Her initial visit with me was 10/24 . She was diagnosed with GDM after abnormal 1 hour GTT on 09/18 (BG 312 mg/dL). HbA1c at that time was 5.8%- suggestive of preexisting beta cell dysfunction (but not necessarily overt diabetes). She has a previous history of gestational diabetes- has a 4 year old daughter. State she was taking oral agents during that . 8lbs delivered by (failed induction). Family hx of diabetes in maternal grandfather. Mother and GDM in two pregnancies. Her prepregnancy weight was 168 lbs and her current weight is 188 lbs. Insulin was initiated at her initial visit with me and has been adjusted in between visits- most recently on 01/19. Her current regimen is as follows: NPH 28 units at bedtime Humalog 5-10-10 units prior to meals respectively, + 8 units of Humalog with higher carb meals. She has been checking her blood glucose 4 times daily- reports the following BG data today: Fasting 85-90 mg/dL 2 hour post meal in general less than 120 mg/dL (occasional outlier) Hypoglycemia frequency: n/a Hypoglycemia awareness: n/a Hyperglycemia Symptoms: denies blurry vision reports polyuria denies polydipsia reports nocturia denies rapid weight loss Last visit with OB was 01/07. Last u/s growth was 12/25- EFW 36th centile, AC 54th, MESERET NL- having a boy! Scheduling for march 05 at 38 weeks. No complaints/concerns at this time- feels ok overall. PAST MEDICAL HISTORY Diagnosis Date Asthma (HCC) Bipolar PAST SURGICAL HISTORY Procedure Laterality Date SECTION HX 07/08/2020 primary d/t Gestational diabetes- suspected LGA TONSILLECTOMY AND ADENOIDECTOMY 2006 FAMILY HISTORY Problem Relation Age of Onset No Known Problems Sister No Known Problems Brother Diabetes Maternal Grandfather Social History Tobacco Use Smoking status: Never Smokeless tobacco: Never Vaping Use Vaping status: Former Substance Use Topics Alcohol use: Not Currently Drug use: Never Current Outpatient Medications Medication Sig Dispense Refill insulin NPH (HUMULIN N NPH INSULIN KWIKPEN) 100 unit/mL (3 mL) injection pen 28 units at bedtime 5 each 11 diphenhydrAMINE (UNISOM SLEEPMINIS) 25 mg capsule Take 1 capsule by mouth at bedtime as needed. 48 capsule 0 insulin lispro (HUMALOG KWIKPEN) 100 unit/mL 5-10-10 units prior to meals + scale upto 55 units/day . 10 Each 11 ferrous sulfate 325 mg (65 mg iron) tablet Take 1 tablet by mouth every other day. famotidine (PEPCID) 20 mg tablet Take 1 tablet by mouth two times a day. 60 tablet 5 Insulin Montgomery, Disposable, (PEN NEEDLE) 32 gauge x 5/32 Use to inject insulin up to 4 times per day. 100 Each 5 Blood-Glucose Meter Use as directed to check glucose levels up to seven times daily. 1 Each 0 blood sugar diagnostic test strip Use as directed to check glucose levels up to seven times daily. 200 Strip 8 Lancets Use as directed to check glucose levels up to seven times daily. 200 Each 8 alcohol swabs (ALCOHOL PREP PADS) Use as directed to check glucose levels up to seven times daily. 200 Each 8 fluticasone (FLONASE) 50 mcg/actuation nasal spray Use 2 Sprays in each nostril once daily. Rinse mouth after use. 1 Each 0 aspirin, enteric coated (ECOTRIN LOW STRENGTH) 81 mg EC tablet Take 1 tablet by mouth once daily. 90 tablet 3 citalopram (CELEXA) 20 mg tablet Take 20 mg by mouth once daily. no115/iron/folic acid ( 19 ORAL) Take 1 tablet by mouth once daily. albuterol HFA (PROVENTIL HFA, VENTOLIN HFA) 90 mcg/actuation inhaler Inhale 2 Puffs as instructed every 4 hours as needed for wheezing/shortness of breath. 8 g 0 No current facility-administered medications for this visit. Allergies As of Date: 01/21/2025 Allergen Noted Reaction CEPHALEXIN 05/01/2022 Rash Fully Assessed 01/20/2025 REVIEW OF SYSTEMS: General: no fever and no chills (more content not included)... [facility] 01-19-2025 Telephone encounter Note Formatting of this note might be differe nt from the original. Reviewed BG data- responded as follows: Good morning- I reviewed your BG data- these numbers remain at goal and look good overall. Continue your current regimen: NPH 28 units at bedtime, Humalog 5 units with breakfast, 10 units with lunch and 10 units with dinner (+ 8 units with higher carb meals)- arleth with * as you are doing if/when you take the extra insulin. Will review again next week- thanks! KB [facility] 01-19-2025 Miscellaneous Notes Formatting of this note might be differe nt from the original. Reviewed BG data- responded as follows: Good morning- I reviewed your BG data- these numbers remain at goal and look good overall. Continue your current regimen: NPH 28 units at bedtime, Humalog 5 units with breakfast, 10 units with lunch and 10 units with dinner (+ 8 units with higher carb meals)- arleth with * as you are doing if/when you take the extra insulin. Will review again next week- thanks! VIKRAM documented in this encounter [facility] 01-12-2025 Telephone encounter Note Formatting of this note might be differe nt from the original. Reviewed BG data- responded as follows; Good morning- I reviewed your BG data- these numbers remain at goal for - continue your current regimen: NPH 28 units at bedtime, Humalog 5 units with breakfast, 10 units with lunch and 10 units with dinner (+ 8 units with higher carb meals)- arleth with * as you are doing if/when you take the extra insulin. Will review again next week- thanks! Dr Rocha [facility] 01-12-2025 Miscellaneous Notes Formatting of this note might be differe nt from the original. Reviewed BG data- responded as follows; Good morning- I reviewed your BG data- these numbers remain at goal for - continue your current regimen: NPH 28 units at bedtime, Humalog 5 units with breakfast, 10 units with lunch and 10 units with dinner (+ 8 units with higher carb meals)- arleth with * as you are doing if/when you take the extra insulin. Will review again next week- thanks! Dr Rocha documented in this encounter [facility] 01-08-2025 Telephone encounter Note Formatting of this note might be differe nt from the original. 3rd risk assessment form submitted 01/08/2025. Melissa Chavez RN [facility] 01-08-2025 Miscellaneous Notes Formatting of this note might be differe nt from the original. 3rd risk assessment form submitted 01/08/2025. Melissa Chavez RN documented in this encounter [facility] 01-07-2025 Progress note Formatting of this note might be differe nt from the original. KJ - S: Val denies LOF, contractions or vaginal bleeding. O: 30w1d, see flow sheet SENSITIVE EXAM: Sensitive exam not performed. A/P: Assessment & Plan 30 weeks gestation of (HCC) Previous section Repeat scheduled Need for vaccination Tdap today Pre-existing diabetes mellitus in in second trimester (HCC) Well controlled on insulin. Follows with endo. Maternal iron deficiency anemia complicating , third trimester (HCC) Needs to schedule IV iron. Reviewed PTL & FM precautions Alfred Arcos MD [facility] 01-07-2025 Miscellaneous Notes Formatting of this note might be differe nt from the original. KJ - S: Val denies LOF, contractions or vaginal bleeding. O: 30w1d, see flow sheet SENSITIVE EXAM: Sensitive exam not performed. A/P: Assessment & Plan 30 weeks gestation of (HCC) Previous section Repeat scheduled Need for vaccination Tdap today Pre-existing diabetes mellitus in in second trimester ([facility]) Well controlled on insulin. Follows with endo. Maternal iron deficiency anemia complicating , third trimester ([facility]) Needs to schedule IV iron. Reviewed PTL & FM precautions Alfred Arcos MD documented in this encounter [facility] 01-07-2025 Note HNO ID: [id number] Author: IRASEMA NAVARRO MA Service: ? Author Type: Robotics Technologist Type: Progress Notes Filed: 01/07/2025 15:05 Note Text: Patient identified by name and date of . Val Ruiz presents today for a vaccination of Tdap. Patient denies an allergy to latex: yes Patient denies a severe (life-threatening) allergy to a previous dose of Tdap, DTP, DTaP, DT or Td vaccine. Yes Patient denies history of epilepsy or neurological problems: Yes Patient is afebrile and denies being moderately or severely ill: Yes Patient denies history of Guillain-Coffey Syndrome (a severe paralytic illness): Yes Tdap Adacel injection was given without incident. See immunizations for details of immunizations administered today. VIS sheet provided: Yes Provider Alfred Arcos MD was present in office at time of injection. Irasema Navarro MA [facility] 01-07-2025 History of Present illness Narrative Formatting of this note might be differe nt from the original. Patient identified by name and date of . Val Ruiz presents today for a vaccination of Tdap. Patient denies an allergy to latex: yes Patient denies a severe (life-threatening) allergy to a previous dose of Tdap, DTP, DTaP, DT or Td vaccine. Yes Patient denies history of epilepsy or neurological problems: Yes Patient is afebrile and denies being moderately or severely ill: Yes Patient denies history of Guillain-Coffey Syndrome (a severe paralytic illness): Yes Tdap Adacel injection was given without incident. See immunizations for details of immunizations administered today. VIS sheet provided: Yes Provider Alfred Arcos MD was present in office at time of injection. Irasema Navarro MA documented in this encounter [facility] 01-07-2025 Instructions Irasema Navarro MA - 01/07/2025 2:10 PM EDT SEQUENTIAL SCREENINGS The [facility] offers sequential screenings for women who are interested in screenings for chromosomal abnormalities and certain defects during a . The sequential screen combines ultrasound and blood tests to determine the risk of chromosomal abnormalities, including Down's Syndrome (Trisomy 21) and Trisomy 18, as well as open neural tube defects including spina bifida. Ultrasound examination is performed between 11 weeks and 13 weeks gestational age. Blood tests are drawn after the ultrasound and again later in the between 15 and 21 weeks gestational age. Please let your physician know if you are interested in this testing. It will require an appointment with our reliability technician. This is not an ultrasound performed by a physician in our office during a routine visit. SIGNS AND SYMPTOMS OF LABOR 1. Contractions every 10 minutes or more often 2. Clear, pink, or brownish fluid (water) leaking from vagina 3. Feeling that baby is pushing down, pressure 4. Low, dull backache 5. Cramps that feel like a period 6. Cramps with or without diarrhea If you notice any of the above symptoms, contact our office at [phone] and ask to speak with a nurse. After hours, you can call doctors registry at [phone] OR call [facility] at [phone] and ask to have the doctor resource protection specialist paged. If you consider this an emergency, dial or go to your nearest emergency department. NEED HELP? Are you dealing with a violent or abusive relationship? Are you a victim of rape or sexual assult? Call [facility] ([place]) 24 hour Crisis Hotline: 637.388.2917 or 995-952-0011. MANUAL Your Guide to a Healthy manual is now on-line. Visit [email or web address] to download your free copy documented in this encounter [facility] 01-05-2025 Telephone encounter Note Formatting of this note might be differe nt from the original. Reviewed BG data- responded as follows: Good afternoon- I reviewed your BG data- these numbers remain at goal for and look good overall- continue your current regimen: NPH 28 units at bedtime, Humalog 5 units with breakfast, 10 units with lunch and 10 units with dinner (+ 8 units with higher carb meals)- arleth with * as you are doing if/when you take the extra insulin. Will review again next week- thanks! KB [facility] 01-05-2025 Miscellaneous Notes Formatting of this note might be differe nt from the original. Reviewed BG data- responded as follows: Good afternoon- I reviewed your BG data- these numbers remain at goal for and look good overall- continue your current regimen: NPH 28 units at bedtime, Humalog 5 units with breakfast, 10 units with lunch and 10 units with dinner (+ 8 units with higher carb meals)- arleth with * as you are doing if/when you take the extra insulin. Will review again next week- thanks! VIKRAM documented in this encounter [facility] 12-30-2024 Note HNO ID: [id number] Author: MC COY, THOM, RN Service: ? Author Type: Registered Nurse Type: Progress Notes Filed: 12/30/2024 11:49 Note Text: Patient referred to Blood Management for evaluation and treatment of pre-surgical anemia and/or iron deficiency. Non-surgical: anemia in Date of surgery: NA Medical/Surgical History: PAST MEDICAL HISTORY Diagnosis Date Asthma Bipolar PAST SURGICAL HISTORY Procedure Laterality Date SECTION HX 07/08/2020 primary d/t Gestational diabetes- suspected LGA TONSILLECTOMY AND ADENOIDECTOMY 2006 Other significant Medical/Surgical history: - None Current Outpatient Medications Medication Sig insulin NPH (HUMULIN N NPH INSULIN KWIKPEN) 100 unit/mL (3 mL) injection pen 28 units at bedtime diphenhydrAMINE (UNISOM SLEEPMINIS) 25 mg capsule Take 1 capsule by mouth at bedtime as needed. insulin lispro (HUMALOG KWIKPEN) 100 unit/mL 5-10-10 units prior to meals + scale upto 55 units/day . ferrous sulfate 325 mg (65 mg iron) tablet Take 1 tablet by mouth every other day. famotidine (PEPCID) 20 mg tablet Take 1 tablet by mouth two times a day. Insulin Montgomery, Disposable, (PEN NEEDLE) 32 gauge x 5/32 Use to inject insulin up to 4 times per day. Blood-Glucose Meter Use as directed to check glucose levels up to seven times daily. blood sugar diagnostic test strip Use as directed to check glucose levels up to seven times daily. Lancets Use as directed to check glucose levels up to seven times daily. alcohol swabs (ALCOHOL PREP PADS) Use as directed to check glucose levels up to seven times daily. fluticasone (FLONASE) 50 mcg/actuation nasal spray Use 2 Sprays in each nostril once daily. Rinse mouth after use. aspirin, enteric coated (ECOTRIN LOW STRENGTH) 81 mg EC tablet Take 1 tablet by mouth once daily. citalopram (CELEXA) 20 mg tablet Take 20 mg by mouth once daily. no115/iron/folic acid ( 19 ORAL) Take 1 tablet by mouth once daily. albuterol HFA (PROVENTIL HFA, VENTOLIN HFA) 90 mcg/actuation inhaler Inhale 2 Puffs as instructed every 4 hours as needed for wheezing/shortness of breath. No current facility-administered medications for this visit. Current medications that may affect iron absorption and/or blood loss: - Antacids (H2 receptor blockers, PPI) and - Aspirin Baseline laboratory values: WBC (k/uL) Date Value 12/25/2024 7.64 RBC (m/uL) Date Value 12/25/2024 3.13 (L) Hemoglobin (g/dL) Date Value 12/25/2024 8.6 (L) Hematocrit (%) Date Value 12/25/2024 27.7 (L) MCV (fL) Date Value 12/25/2024 88.5 MCH (pg) Date Value 12/25/2024 27.5 MCHC (g/dL) Date Value 12/25/2024 31.0 RDW-CV (%) Date Value 12/25/2024 17.9 (H) Platelet Count (k/uL) Date Value 12/25/2024 289 MPV (fL) Date Value 12/25/2024 10.5 Iron Date Value Ref Range Status 12/25/2024 59 41 - 186 ug/dL Final TIBC Date Value Ref Range Status 12/25/2024 542 (H) 232 - 386 ug/dL Final Ferritin Date Value Ref Range Status 12/25/2024 14.5 (L) 14.7 - 205.1 ng/mL Final Transferrin Saturation Date Value Ref Range Status 12/25/2024 10.9 (L) 15.0 - 57.0 % Final Assess for the need to augment a patient?s natural red blood cell production: - Blood transfusion avoidance - Iron depletion Recommendations according to Blood Management patient care guidelines: - Iron Sucrose 200 mg, IV infusion, dose(s) 5 Total iron deficit using Ganzoni equation= 949 mg (pre- wt 78 kg/goal hgb 11 g/dL) Clinical information is sent to a provider for review and evaluation for treatment. [facility] 12-30-2024 History of Present illness Narrative Formatting of this note is different fro m the original. Patient referred to Blood Management for evaluation and treatment of pre-surgical anemia and/or iron deficiency. Non-surgical: anemia in Date of surgery: NA Medical/Surgical History: PAST MEDICAL HISTORY Diagnosis Date Asthma Bipolar PAST SURGICAL HISTORY Procedure Laterality Date SECTION HX 07/08/2020 primary d/t Gestational diabetes- suspected LGA TONSILLECTOMY & ADENOIDECTOMY <AGE 12 2006 Other significant Medical/Surgical history: - None Current Outpatient Medications Medication Sig insulin NPH (HUMULIN N NPH INSULIN KWIKPEN) 100 unit/mL (3 mL) injection pen 28 units at bedtime diphenhydrAMINE (UNISOM SLEEPMINIS) 25 mg capsule Take 1 capsule by mouth at bedtime as needed. insulin lispro (HUMALOG KWIKPEN) 100 unit/mL 5-10-10 units prior to meals + scale upto 55 units/day . ferrous sulfate 325 mg (65 mg iron) tablet Take 1 tablet by mouth every other day. famotidine (PEPCID) 20 mg tablet Take 1 tablet by mouth two times a day. Insulin Montgomery, Disposable, (PEN NEEDLE) 32 gauge x Use to inject insulin up to 4 times per day. Blood-Glucose Meter Use as directed to check glucose levels up to seven times daily. blood sugar diagnostic test strip Use as directed to check glucose levels up to seven times daily. Lancets Use as directed to check glucose levels up to seven times daily. alcohol swabs (ALCOHOL PREP PADS) Use as directed to check glucose levels up to seven times daily. fluticasone (FLONASE) 50 mcg/actuation nasal spray Use 2 Sprays in each nostril once daily. Rinse mouth after use. aspirin, enteric coated (ECOTRIN LOW STRENGTH) 81 mg EC tablet Take 1 tablet by mouth once daily. citalopram (CELEXA) 20 mg tablet Take 20 mg by mouth once daily. no115/iron/folic acid ( 19 ORAL) Take 1 tablet by mouth once daily. albuterol HFA (PROVENTIL HFA, VENTOLIN HFA) 90 mcg/actuation inhaler Inhale 2 Puffs as instructed every 4 hours as needed for wheezing/shortness of breath. No current facility-administered medications for this visit. Current medications that may affect iron absorption and/or blood loss: - Antacids (H2 receptor blockers, PPI) and - Aspirin Baseline laboratory values: WBC (k/uL) Date Value 12/25/2024 7.64 RBC (m/uL) Date Value 12/25/2024 3.13 (L) Hemoglobin (g/dL) Date Value 12/25/2024 8.6 (L) Hematocrit (%) Date Value 12/25/2024 27.7 (L) MCV (fL) Date Value 12/25/2024 88.5 MCH (pg) Date Value 12/25/2024 27.5 MCHC (g/dL) Date Value 12/25/2024 31.0 RDW-CV (%) Date Value 12/25/2024 17.9 (H) Platelet Count (k/uL) Date Value 12/25/2024 289 MPV (fL) Date Value 12/25/2024 10.5 Iron Date Value Ref Range Status 12/25/2024 59 41 - 186 ug/dL Final TIBC Date Value Ref Range Status 12/25/2024 542 (H) 232 - 386 ug/dL Final Ferritin Date Value Ref Range Status 12/25/2024 14.5 (L) 14.7 - 205.1 ng/mL Final Transferrin Saturation Date Value Ref Range Status 12/25/2024 10.9 (L) 15.0 - 57.0 % Final Assess for the need to augment a patient s natural red blood cell production: - Blood transfusion avoidance - Iron depletion Recommendations according to Blood Management patient care guidelines: - Iron Sucrose 200 mg, IV infusion, dose(s) 5 Total iron deficit using Ganzoni equation= 949 mg (pre- wt 78 kg/goal hgb 11 g/dL) Clinical information is sent to a provider for review and evaluation for treatment. documented in this encounter [facility] 12-28-2024 Telephone encounter Note Formatting of this note might be differe nt from the original. Reviewed BG data- responded as follows: Good afternoon- I reviewed your BG data- I would recommend that you increase NPH slightly to 28 units at bedtime . Continue Humalog 5 units with breakfast, 10 units with lunch and 10 units with dinner (+ 8 units with higher carb meals)- arleth with * as you are doing if/when you take the extra insulin. Will review again next week- thanks! KB [facility] 12-28-2024 Miscellaneous Notes Formatting of this note might be differe nt from the original. Reviewed BG data- responded as follows: Good afternoon- I reviewed your BG data- I would recommend that you increase NPH slightly to 28 units at bedtime . Continue Humalog 5 units with breakfast, 10 units with lunch and 10 units with dinner (+ 8 units with higher carb meals)- arleth with * as you are doing if/when you take the extra insulin. Will review again next week- thanks! KB documented in this encounter [facility] 12-25-2024 Note Indication Evaluation of growth Diabetes mellitus, Maternal obesity, BMI >30 Impression REMOTE READ - Single, live, intrauterine . - The biometry is consistent with the assigned gestational dating. - The EFW is 1200 g, at the 36%. AC is at the 54%. - Amniotic fluid volume is normal amount with an MVP of 6 cm and MESERET of 19.7 cm. - The placenta is posterior, fundal. - No malformations visualized on a limited survey as detailed below. Recommendations Growth in four weeks Maternal Assessment Height 150 cm Height (ft) 4 ft Height (in) 11 in Physical Exam Initial weight (lb) 172 lb Initial BMI 34.74 kg/m Maternal assessment other: 2 Para 1 Method Transabdominal ultrasound examination Scott . Number of fetuses: 1 Dating LMP on: 06/10/2024 GA by LMP 28 w + 2 d DEEP by LMP: 03/17/2025 GA by prior assessment 28 w + 2 d DEEP by prior assessment: 03/17/2025 Ultrasound examination on: 12/25/2024 GA by U/S based upon: AC, BPD, Femur, HC GA by U/S 28 w + 2 d DEEP by U/S: 03/17/2025 Assigned: based on stated DEEP, selected on 12/25/2024 Assigned GA 28 w + 2 d Assigned DEEP: 03/17/2025 General Evaluation Cardiac activity present. FHR 143 bpm. movements: present. Presentation: cephalic Placenta: Placental site: posterior, fundal Umbilical cord: Cord vessels: 3 vessel cord Amniotic fluid: Amount of AF: normal amount. MVP 6.0 cm. MESERET 19.7 cm. Q1 6.0 cm, Q2 5.4 cm, Q3 4.2 cm, Q4 4.1 cm Growth Overview Exam date GA BPD (mm) HC (mm) AC (mm) FL (mm) HL (mm) EFW (g) 10/09/2024 17w 2d 36.5 44% 138.1 40% 115.9 51% 21 18% 21.9 35% 171 20% 11/06/2024 21w 2d 48.4 23% 182.2 30% 164.4 50% 33 29% 33.3 46% 385 26% 12/03/2024 25w 1d 59.4 14% 223.6 26% 199.9 26% 43.1 30% 693 15% 12/25/2024 28w 2d 71.3 49% 268.5 60% 244 54% 50.6 25% 1200 36% Biometry Standard BPD 71.3 mm 28w 4d 49% Hadlock OFD 95.2 mm 28w 0d 59% Nicolaides HC 268.5 mm 28w 5d 60% Norma AC 244.0 mm 28w 5d 54% Hadlock Femur 50.6 mm 27w 2d 25% Norma EFW 1,200 g 28w 0d 36% Hadlock EFW (lb) 2 lb EFW (oz) 10 oz EFW by: Hadlock (HC-AC-FL) Extended Gravel Wheeler 7.4 mm Extremities / Bony Struc FL / HC 0.19 Other Structures FHR 143 bpm Anatomy Lateral ventricles: normal Cavum septi pellucidi: normal Cerebellum: normal Cisterna magna: normal 4-chamber view: suboptimally visualized RVOT view: normal LVOT view: normal 3-vessel view: normal Heart / Thorax Situs: situs solitus (normal) Diaphragm: normal Stomach: normal Kidneys: normal Bladder: normal sex: male Wants to know sex: yes Performed By: Edel Trinh RDMS, RVT Read By: Ly Nugent M.D. [facility] 12-25-2024 Progress note Formatting of this note might be differe nt from the original. KJ - S: Val denies LOF, contractions or vaginal bleeding. She reports having trouble sleeping. Patient wants to try unisom. She reports good glucose control. O: 28w2d, see flow sheet SENSITIVE EXAM: Sensitive exam not performed. A/P: Assessment & Plan Pre-existing diabetes mellitus in in second trimester (HCC) Managed by & on insulin. Orders: URINE OB DIP B/O Previous delivery affecting , antepartum ([facility]) Scheduled repeat Orders: URINE OB DIP B/O Supervision of high risk in third trimester ([facility]) Orders: URINE OB DIP B/O 28wk labs today. Plans Tdap NEXT visit. Insomnia - unisom sent and sleep habits reviewed. Reviewed PTL & FM precautions. Alfred Arcos MD [facility] 12-25-2024 Miscellaneous Notes Formatting of this note might be differe nt from the original. KJ - S: Val denies LOF, contractions or vaginal bleeding. She reports having trouble sleeping. Patient wants to try unisom. She reports good glucose control. O: 28w2d, see flow sheet SENSITIVE EXAM: Sensitive exam not performed. A/P: Assessment & Plan Pre-existing diabetes mellitus in in second trimester ([facility]) Managed by & on insulin. Orders: URINE OB DIP B/O Previous delivery affecting , antepartum ([facility]) Scheduled repeat Orders: URINE OB DIP B/O Supervision of high risk in third trimester ([facility]) Orders: URINE OB DIP B/O 28wk labs today. Plans Tdap NEXT visit. Insomnia - unisom sent and sleep habits reviewed. Reviewed PTL & FM precautions. Alfred Arcos MD documented in this encounter [facility] 12-25-2024 Instructions Janice Pina MA - 12/25/2024 10:20 AM EDT SEQUENTIAL SCREENINGS The [facility] offers sequential screenings for women who are interested in screenings for chromosomal abnormalities and certain defects during a . The sequential screen combines ultrasound and blood tests to determine the risk of chromosomal abnormalities, including Down's Syndrome (Trisomy 21) and Trisomy 18, as well as open neural tube defects including spina bifida. Ultrasound examination is performed between 11 weeks and 13 weeks gestational age. Blood tests are drawn after the ultrasound and again later in the between 15 and 21 weeks gestational age. Please let your physician know if you are interested in this testing. It will require an appointment with our reliability technician. This is not an ultrasound performed by a physician in our office during a routine visit. SIGNS AND SYMPTOMS OF LABOR 1. Contractions every 10 minutes or more often 2. Clear, pink, or brownish fluid (water) leaking from vagina 3. Feeling that baby is pushing down, pressure 4. Low, dull backache 5. Cramps that feel like a period 6. Cramps with or without diarrhea If you notice any of the above symptoms, contact our office at [phone] and ask to speak with a nurse. After hours, you can call doctors registry at [phone] OR call [facility] at [phone] and ask to have the doctor resource protection specialist paged. If you consider this an emergency, dial 3--8 or go to your nearest emergency department. NEED HELP? Are you dealing with a violent or abusive relationship? Are you a victim of rape or sexual assult? Call [facility] ([place]) 24 hour Crisis Hotline: 807.887.1292 or 641-709-3168. MANUAL Your Guide to a Healthy manual is now on-line. Visit [email or web address] to download your free copy documented in this encounter [facility] 12-20-2024 Telephone encounter Note Formatting of this note might be differe nt from the original. Reviewed BG data- responded as follows: Good afternoon- I reviewed your BG data- the majority of these values remain at goal for - continue your current regimen: NPH 25 units at bedtime Humalog 5 units with breakfast, 10 units with lunch and 10 units with dinner (+ 8 units with higher carb meals)- will review again next week- thanks! KB [facility] 12-20-2024 Miscellaneous Notes Formatting of this note might be differe nt from the original. Reviewed BG data- responded as follows: Good afternoon- I reviewed your BG data- the majority of these values remain at goal for - continue your current regimen: NPH 25 units at bedtime Humalog 5 units with breakfast, 10 units with lunch and 10 units with dinner (+ 8 units with higher carb meals)- will review again next week- thanks! VIKRAM documented in this encounter [facility] 12-15-2024 Telephone encounter Note Formatting of this note might be differe nt from the original. Reviewed BG data- responded as follows: Good afternoon- I reviewed your BG data- these numbers are at/near goal. I would recommend that you continue NPH 25 units at bedtime. Continue Humalog 5 units prior to breakfast, increase to 10 units prior to lunch and 10 units prior to dinner + additional 8 units of Humalog with higher carb meals (arleth with * as you are doing). Will review again next week- thanks! VIKRAM [facility] 12-15-2024 Miscellaneous Notes Formatting of this note might be differe nt from the original. Reviewed BG data- responded as follows: Good afternoon- I reviewed your BG data- these numbers are at/near goal. I would recommend that you continue NPH 25 units at bedtime. Continue Humalog 5 units prior to breakfast, increase to 10 units prior to lunch and 10 units prior to dinner + additional 8 units of Humalog with higher carb meals (arleth with * as you are doing). Will review again next week- thanks! VIKRAM documented in this encounter [facility] 12-08-2024 Telephone encounter Note Formatting of this note might be differe nt from the original. Order signed and faxed. Elena Parker RN [facility] 12-08-2024 Miscellaneous Notes Formatting of this note might be differe nt from the original. Order signed and faxed. Elena Parker RN Breast pump order received from [employer]. To KJ to sign. Elena Parker RN documented in this encounter [facility] 12-08-2024 Note HNO ID: [id number] Author: ?, ?, ? Service: ? Author Type: ? Type: Progress Notes Filed: 12/08/2024 15:29 Note Text: Spoke with patient, scheduled 01/21/2025 @ 8:40 am (virtual appointment) [facility] 12-07-2024 Note HNO ID: [id number] Author: ?, ?, ? Service: ? Author Type: ? Type: Progress Notes Filed: 12/07/2024 10:14 Note Text: Left voicemail for patient to call [phone] to schedule 6 week virtual follow up with Dr. Rocha. [facility] 12-07-2024 History of Present illness Narrative Formatting of this note might be differe nt from the original. Left voicemail for patient to call [phone] to schedule 6 week virtual follow up with Dr. Rocha. Reason for consultation: F/U- gestational diabetes mellitus Referring Physician: Melissa Aguilera MD My final recommendations will be communicated back to the requesting physician by way of shared Medical record or letter via [place] mail. This Team Access Model visit is a virtual encounter. It required patient-provider interaction for the medical decision making as documented below. I have communicated my name and active licensure. The patient's identity and physical location were verified at the time of this visit. Either the patient or their legal senior sales representative has been informed of the risks and benefits of -- and alternatives to -- treatment through a remote evaluation and consents to proceed with the evaluation remotely. HISTORY OF PRESENT ILLNESS; Ms. Ruiz is a 24 year old presenting at 25+ weeks gestation here for f/u regarding gestational diabetes mellitus. Her initial visit with ky was 10/24 . She was diagnosed with GDM after abnormal 1 hour GTT on 09/18 (BG 312 mg/dL). HbA1c at that time was 5.8%- suggestive of preexisting beta cell dysfunction (but not necessarily overt diabetes). She has a previous history of gestational diabetes- has a 4 year old daughter. State she was taking oral agents during that . 8lbs delivered by (failed induction). Family hx of diabetes in maternal grandfather. Mother and GDM in two pregnancies. Her prepregnancy weight was 168 lbs and her current weight is 178 lbs. Insulin was initiated at her initial visit with me and has been adjusted in between visits- most recently on 11/30. Her current regimen is as follows: NPH 25 units at bedtime Humalog 5-8-8 units prior to meals respectively, + 5 units of Humalog with higher carb meals. She has been checking her blood glucose 4 times daily- she forwarded me her BG data prior to this visit: Fasting 80-94 mg/dL 2 hour post meal 110-135 mg/dL. Hypoglycemia frequency: n/a Hypoglycemia awareness: n/a Hyperglycemia Symptoms: denies blurry vision reports polyuria denies polydipsia reports nocturia denies rapid weight loss Last visit with OB was 12/03- Last u/s growth was 12/03- EFW 15th centile, AC 26th, MESERET NL- having a boy! Scheduling for march 05 at 38 weeks. No complaints/concerns at this time- feels ok overall. PAST MEDICAL HISTORY Diagnosis Date Asthma Bipolar PAST SURGICAL HISTORY Procedure Laterality Date SECTION HX 07/08/2020 primary d/t Gestational diabetes- suspected LGA TONSILLECTOMY & ADENOIDECTOMY <AGE 11 2006 FAMILY HISTORY Problem Relation Age of Onset No Known Problems Sister No Known Problems Brother Diabetes Maternal Grandfather Social History Tobacco Use Smoking status: Never Smokeless tobacco: Never Vaping Use Vaping status: Former Substance Use Topics Alcohol use: Not Currently Drug use: Never Current Outpatient Medications Medication Sig Dispense Refill ferrous sulfate 325 mg (65 mg iron) tablet Take 1 tablet by mouth every other day. insulin NPH (HUMULIN N NPH INSULIN KWIKPEN) 100 unit/mL (3 mL) injection pen 25 units at bedtime 5 Each 11 famotidine (PEPCID) 20 mg tablet Take 1 tablet by mouth two times a day. 60 tablet 5 insulin lispro (HUMALOG KWIKPEN) 100 unit/mL 5-8-8 units prior to meals + scale. 5 Each 11 Insulin Montgomery, Disposable, (PEN NEEDLE) 32 gauge x 5/32 Use to inject insulin up to 4 times per day. 100 Each 5 Blood-Glucose Meter Use as directed to check glucose levels up to seven times daily. 1 Each 0 blood sugar diagnostic test strip Use as directed to check glucose levels up to seven times daily. 200 Strip 8 Lancets Use as directed to check glucose levels up to seven times daily. 200 Each 8 alcohol swabs (ALCOHOL PREP PADS) Use as directed to check glucose levels up to seven times daily. 200 Each 8 diphenhydramine HCl (BENADRYL ALLERGY ORAL) Take by mouth daily at bedtime. fluticasone (FLONASE) 50 mcg/actuation nasal spray Use 2 Sprays in each nostril once daily. Rinse mouth after use. 1 Each 0 aspirin, enteric coated (ECOTRIN LOW STRENGTH) 81 mg EC tablet Take 1 tablet by mouth once daily. 90 tablet 3 citalopram (CELEXA) 20 mg tablet Take 20 mg by mouth once daily. no115/iron/folic acid ( 19 ORAL) Take 1 tablet by mouth once daily. albuterol HFA (PROVENTIL HFA, VENTOLIN HFA) 90 mcg/actuation inhaler Inhale 2 Puffs as instructed every 4 hours as needed for wheezing/shortness of breath. 8 g 0 No current facility-administered medications for this visit. Allergies As of Date: 12/07/2024 Allergen Noted Reaction CEPHALEXIN 05/01/2022 Rash Fully Assessed 12/03/2024 REVIEW OF SYSTEMS: General: no fever and no chills- weight gain appropriate for Skin: no rashes, pruritis or dry skin Eyes: no blurred or double vision or eye pain Cardiac: denies chest pain, heart palpitations or orthopnea Pulmonary: denies wheezing, productive cough or exertional dyspnea GI: denies nausea and denies vomiting Musc: denies history of upper or lower extremity weakness Reproductive: gravid at 25+ weeks gestation, menses regular prior to the Endocrine: complains of polyuria and nocturia Hematology: Negative for anemia, easy bleeding and bruising. PHYSICAL EXAM: No vitals as this was a virtual visit. GENERAL: Alert, no distress, cooperative SKIN: Skin color, texture, turgor normal. No rashes or lesions. HEAD/SINUSES: No significant findings EYES: sclera non-icteric, EOMs intact. ABDOMEN: gravid at 25+ weeks EXTREMITIES: Normal exam of the extremities NEURO: AAO x 3 no focal deficits The remainder of the physical exam is noncontributory. DATA: Hemoglobin A1C (%) Date Value 09/11/2024 5.8 Latest Ref Rng 09/18/2024 Glucose Scrn, Preg 74 - 134 mg/dL 312 (H) IMPRESSION: Ms. Ruiz is a 24 year old female at 25+ weeks gestation here for evaluation of gestational diabetes mellitus. RECOMMENDATIONS: 1. The patient was counseled regarding the maternal and risks of hyperglycemia during . risks include, but are not limited to: congenital abnormalities, hypoxia and stillbirth, macrosomia, shoulder dystocia and hypoglycemia. Maternal risks include increased risks of pre-eclampsia and delivery. 2. I recommend the patient check her blood glucose fasting and 2 hour after each meal, we have provided her with a glucometer if she does not have one. The following blood glucose targets were discussed: fasting blood glucose concentration between 60-90 mg/dL, and 2 hour postprandial blood glucose concentration of less than 120 mg/dL. She was encouraged to limit carbohydrate intake, to walk after meals, (if not contraindicated) and will be scheduled with our dietitian, (if not done already). Regarding her blood glucose management, I recommend she do the followin) check your sugars fasting (60-90 mg/dL) and 2 hours post meal (less than 120 mg/dL) 2) forward me your blood glucose data weekly ([email or web address])- 3) adjust insulin slightly as follows: NPH 25 units at bedtime Humalog 5-8-8 units prior to meals respectively, + additional 8 units of Humalog with higher carb meals (arleth with * as you are doing) 4) see me in 6 weeks (virtual visit ok) for f/u- my office will reach out to schedule this- Val will call us with any questions or concerns in the interim. 3. Patient will require repeat 2 hr 75g OGTT 8 weeks after delivery to ensure resolution of diabetes. She was counseled that her chances of future pregnancies complicated by diabetes are high, and her 5 year risk of developing diabetes approaches 50%. Adherence to proper diet and exercise regimen will help reduce these risks. I spent a total of 30 minutes on the date of the service which included preparing to see the patient, [id number] patient care, completing clinical documentation, obtaining and/or reviewing separately obtained history, performing a medically appropriate examination, counseling and educating the patient/family/caregiver, and ordering medications, tests, or procedures. Lalito Rocha DO documented in this encounter [facility] 12-07-2024 Telephone encounter Note Formatting of this note might be differe nt from the original. Breast pump order received from [employer]. To KJ to sign. Elena Parker RN [facility] 12-07-2024 Note HNO ID: [id number] Author: LALITO ROCHA DO Service: ? Author Type: Physician Type: Progress Notes Filed: 12/07/2024 09:01 Note Text: Reason for consultation: F/U- gestational diabetes mellitus Referring Physician: Melissa Aguilera MD My final recommendations will be communicated back to the requesting physician by way of shared Medical record or letter via US mail. This Team Access Model visit is a virtual encounter. It required patient-provider interaction for the medical decision making as documented below. I have communicated my name and active licensure. The patient's identity and physical location were verified at the time of this visit. Either the patient or their legal senior sales representative has been informed of the risks and benefits of -- and alternatives to -- treatment through a remote evaluation and consents to proceed with the evaluation remotely. HISTORY OF PRESENT ILLNESS; Ms. Ruiz is a 24 year old presenting at 25+ weeks gestation here for f/u regarding gestational diabetes mellitus. Her initial visit with ky was 10/24 . She was diagnosed with GDM after abnormal 1 hour GTT on 09/18 (BG 312 mg/dL). HbA1c at that time was 5.8%- suggestive of preexisting beta cell dysfunction (but not necessarily overt diabetes). She has a previous history of gestational diabetes- has a 4 year old daughter. State she was taking oral agents during that . 8lbs delivered by (failed induction). Family hx of diabetes in maternal grandfather. Mother and GDM in two pregnancies. Her prepregnancy weight was 168 lbs and her current weight is 178 lbs. Insulin was initiated at her initial visit with me and has been adjusted in between visits- most recently on 11/30. Her current regimen is as follows: NPH 25 units at bedtime Humalog 5-8-8 units prior to meals respectively, + 5 units of Humalog with higher carb meals. She has been checking her blood glucose 4 times daily- she forwarded me her BG data prior to this visit: Fasting 80-94 mg/dL 2 hour post meal 110-135 mg/dL. Hypoglycemia frequency: n/a Hypoglycemia awareness: n/a Hyperglycemia Symptoms: denies blurry vision reports polyuria denies polydipsia reports nocturia denies rapid weight loss Last visit with OB was 12/03- Last u/s growth was 12/03- EFW 15th centile, AC 26th, MESERET NL- having a boy! Scheduling for march 05 at 38 weeks. No complaints/concerns at this time- feels ok overall. PAST MEDICAL HISTORY Diagnosis Date Asthma Bipolar PAST SURGICAL HISTORY Procedure Laterality Date SECTION HX 07/08/2020 primary d/t Gestational diabetes- suspected LGA TONSILLECTOMY AND ADENOIDECTOMY 2006 FAMILY HISTORY Problem Relation Age of Onset No Known Problems Sister No Known Problems Brother Diabetes Maternal Grandfather Social History Tobacco Use Smoking status: Never Smokeless tobacco: Never Vaping Use Vaping status: Former Substance Use Topics Alcohol use: Not Currently Drug use: Never Current Outpatient Medications Medication Sig Dispense Refill ferrous sulfate 325 mg (65 mg iron) tablet Take 1 tablet by mouth every other day. insulin NPH (HUMULIN N NPH INSULIN KWIKPEN) 100 unit/mL (3 mL) injection pen 25 units at bedtime 5 Each 11 famotidine (PEPCID) 20 mg tablet Take 1 tablet by mouth two times a day. 60 tablet 5 insulin lispro (HUMALOG KWIKPEN) 100 unit/mL 5-8-8 units prior to meals + scale. 5 Each 11 Insulin Montgomery, Disposable, (PEN NEEDLE) 32 gauge x 5/32 Use to inject insulin up to 4 times per day. 100 Each 5 Blood-Glucose Meter Use as directed to check glucose levels up to seven times daily. 1 Each 0 blood sugar diagnostic test strip Use as directed to check glucose levels up to seven times daily. 200 Strip 8 Lancets Use as directed to check glucose levels up to seven times daily. 200 Each 8 alcohol swabs (ALCOHOL PREP PADS) Use as directed to check glucose levels up to seven times daily. 200 Each 8 diphenhydramine HCl (BENADRYL ALLERGY ORAL) Take by mouth daily at bedtime. fluticasone (FLONASE) 50 mcg/actuation nasal spray Use 2 Sprays in each nostril once daily. Rinse mouth after use. 1 Each 0 aspirin, enteric coated (ECOTRIN LOW STRENGTH) 81 mg EC tablet Take 1 tablet by mouth once daily. 90 tablet 3 citalopram (CELEXA) 20 mg tablet Take 20 mg by mouth once daily. no115/iron/folic acid ( 19 ORAL) Take 1 tablet by mouth once daily. albuterol HFA (PROVENTIL HFA, VENTOLIN HFA) 90 mcg/actuation inhaler Inhale 2 Puffs as instructed every 4 hours as needed for wheezing/shortness of breath. 8 g 0 No current facility-administered medications for this visit. Allergies As of Date: 12/07/2024 Allergen Noted Reaction CEPHALEXIN 05/01/2022 Rash Fully Assessed 12/03/2024 REVIEW OF SYSTEMS: General: no fever and no chills- weight gain appropriate for Skin: no rashes, pruritis or dry skin Eyes: (more content not included)... [facility] 12-03-2024 Note Indication Evaluation of growth Diabetes mellitus, Maternal obesity, BMI >30 Impression REMOTE READ - Single, live, intrauterine . - The biometry is consistent with the assigned gestational dating. - The EFW is 693 g, at the 15%. AC is at the 26%. - The amniotic fluid volume is normal amount with an MVP of 5.1 cm and an MESERET of 17.5 cm. - The placenta is posterior, fundal. - No malformations visualized on a limited survey as detailed below. Recommendations Growth in four weeks Maternal Assessment Height 150 cm Height (ft) 4 ft Height (in) 11 in Physical Exam Initial weight (lb) 172 lb Initial BMI 34.74 kg/m Maternal assessment other: 2 Para 1 Method Transabdominal ultrasound examination Scott . Number of fetuses: 1 Dating LMP on: 06/10/2024 GA by LMP 25 w + 1 d DEEP by LMP: 03/17/2025 GA by prior assessment 25 w + 1 d DEEP by prior assessment: 03/17/2025 Ultrasound examination on: 12/03/2024 GA by U/S based upon: AC, BPD, Femur, HC GA by U/S 24 w + 3 d DEEP by U/S: 03/22/2025 Assigned: based on stated DEEP, selected on 12/03/2024 Assigned GA 25 w + 1 d Assigned DEEP: 03/17/2025 General Evaluation Cardiac activity present. FHR 135 bpm. movements: present. Presentation: cephalic Placenta: Placental site: posterior, fundal Umbilical cord: Cord vessels: 3 vessel cord Amniotic fluid: Amount of AF: normal amount. MVP 5.1 cm. MESERET 17.5 cm. Q1 4.8 cm, Q2 5.0 cm, Q3 2.5 cm, Q4 5.1 cm Growth Overview Exam date GA BPD (mm) HC (mm) AC (mm) FL (mm) HL (mm) EFW (g) 10/09/2024 17w 2d 36.5 44% 138.1 40% 115.9 51% 21 18% 21.9 35% 171 20% 11/06/2024 21w 2d 48.4 23% 182.2 30% 164.4 50% 33 29% 33.3 46% 385 26% 12/03/2024 25w 1d 59.4 14% 223.6 26% 199.9 26% 43.1 30% 693 15% Biometry Standard BPD 59.4 mm 24w 2d 14% Hadlock OFD 79.6 mm 24w 1d 28% Nicolaides HC 223.6 mm 24w 2d 26% Norma AC 199.9 mm 24w 4d 26% Hadlock Femur 43.1 mm 24w 2d 30% Norma EFW 693 g 24w 1d 15% Hadlock EFW (lb) 1 lb EFW (oz) 8 oz EFW by: Hadlock (HC-AC-FL) Extended Gravel Wheeler 7.6 mm Extremities / Bony Struc FL / HC 0.19 Other Structures FHR 135 bpm Anatomy Lateral ventricles: normal Cavum septi pellucidi: normal Cerebellum: normal Cisterna magna: normal 4-chamber view: normal RVOT view: normal LVOT view: normal 3-vessel view: normal Heart / Thorax Situs: situs solitus (normal) Diaphragm: normal Stomach: normal Kidneys: normal Bladder: normal sex: male Wants to know sex: yes Performed By: Edel Trinh RDMS, RVT Read By: Ly Nugent M.D. [facility] 12-03-2024 Progress note Formatting of this note might be differe nt from the original. KJ - S: Val denies LOF, contractions or vaginal bleeding. O: 25w1d, see flow sheet SENSITIVE EXAM: Sensitive exam not performed. A/P: Assessment & Plan Pre-existing diabetes mellitus in in second trimester Orders: URINE OB DIP B/O Continue management by endocrinology. Growth US today. Previous delivery affecting , antepartum Schedule repeat Orders: URINE OB DIP B/O Supervision of high risk in second trimester Orders: URINE OB DIP B/O 25 weeks gestation of Orders: URINE OB DIP B/O Alfred Arcos MD [facility] 12-03-2024 Miscellaneous Notes Formatting of this note might be differe nt from the original. KJ - S: Val denies LOF, contractions or vaginal bleeding. O: 25w1d, see flow sheet SENSITIVE EXAM: Sensitive exam not performed. A/P: Assessment & Plan Pre-existing diabetes mellitus in in second trimester Orders: URINE OB DIP B/O Continue management by endocrinology. Growth US today. Previous delivery affecting , antepartum Schedule repeat Orders: URINE OB DIP B/O Supervision of high risk in second trimester Orders: URINE OB DIP B/O 25 weeks gestation of Orders: URINE OB DIP B/O Alfred Arcos MD documented in this encounter [facility] 12-03-2024 Instructions Yamila Azar MA - 12/03/2024 1:04 PM EDT SEQUENTIAL SCREENINGS The [facility] offers sequential screenings for women who are interested in screenings for chromosomal abnormalities and certain defects during a . The sequential screen combines ultrasound and blood tests to determine the risk of chromosomal abnormalities, including Down's Syndrome (Trisomy 21) and Trisomy 18, as well as open neural tube defects including spina bifida. Ultrasound examination is performed between 11 weeks and 13 weeks gestational age. Blood tests are drawn after the ultrasound and again later in the between 15 and 21 weeks gestational age. Please let your physician know if you are interested in this testing. It will require an appointment with our reliability technician. This is not an ultrasound performed by a physician in our office during a routine visit. SIGNS AND SYMPTOMS OF LABOR 1. Contractions every 10 minutes or more often 2. Clear, pink, or brownish fluid (water) leaking from vagina 3. Feeling that baby is pushing down, pressure 4. Low, dull backache 5. Cramps that feel like a period 6. Cramps with or without diarrhea If you notice any of the above symptoms, contact our office at [phone] and ask to speak with a nurse. After hours, you can call doctors registry at [phone] OR call [facility] at [phone] and ask to have the doctor resource protection specialist paged. If you consider this an emergency, dial 9-1-8 or go to your nearest emergency department. NEED HELP? Are you dealing with a violent or abusive relationship? Are you a victim of rape or sexual assult? Call [facility] ([place]) 24 hour Crisis Hotline: 759.988.8360 or 187-244-4163. MANUAL Your Guide to a Healthy manual is now on-line. Visit [email or web address] to download your free copy documented in this encounter [facility] 11-30-2024 Telephone encounter Note Formatting of this note might be differe nt from the original. Reviewed BG data- responded as follows; Good afternoon- I reviewed your BG data- these numbers look good overall and are at goal for - continue your current regimen as you are doing: NPH 25 units at bedtime Humalog 5 units prior to breakfast, Humalog 8 units prior to lunch and 8 units prior to dinner (+ additional 5 units of Humalog with any higher carb meals as you are doing. Will review again next week- thanks! KB [facility] 11-30-2024 Miscellaneous Notes Formatting of this note might be differe nt from the original. Reviewed BG data- responded as follows; Good afternoon- I reviewed your BG data- these numbers look good overall and are at goal for - continue your current regimen as you are doing: NPH 25 units at bedtime Humalog 5 units prior to breakfast, Humalog 8 units prior to lunch and 8 units prior to dinner (+ additional 5 units of Humalog with any higher carb meals as you are doing. Will review again next week- thanks! VIKRAM documented in this encounter [facility] 11-22-2024 Telephone encounter Note Formatting of this note might be differe nt from the original. Reviewed BG data- responded as follows: Ok thanks! I reviewed your BG data- these numbers remain at goal for (overall)- continue your current regimen: NPH 25 units at bedtime Humalog 5 units prior to breakfast, Humalog 8 units prior to lunch and 8 units prior to dinner (+ additional 5 units of Humalog with any higher carb meals as you are doing. Will review again next week- thanks! VIKRAM [facility] 11-22-2024 Miscellaneous Notes Formatting of this note might be differe nt from the original. Reviewed BG data- responded as follows: Ok thanks! I reviewed your BG data- these numbers remain at goal for (overall)- continue your current regimen: NPH 25 units at bedtime Humalog 5 units prior to breakfast, Humalog 8 units prior to lunch and 8 units prior to dinner (+ additional 5 units of Humalog with any higher carb meals as you are doing. Will review again next week- thanks! VIKRAM documented in this encounter [facility] 11-15-2024 Telephone encounter Note Formatting of this note might be differe nt from the original. Reviewed BG data- responded as follows: Good morning- I reviewed your BG data/ message below- these numbers look good overall (some ups/downs but majority are at goal)- continue NPH 25 units at bedtime, Humalog 5 units prior to breakfast, Humalog 8 units prior to lunch and 8 units prior to dinner (+ additional 5 units of Humalog with any higher carb meals as you are doing ( arleth with * if/when you take the extra insulin so I can see if it is working or not). Will review again next week- thanks! KB [facility] 11-15-2024 Miscellaneous Notes Formatting of this note might be differe nt from the original. Reviewed BG data- responded as follows: Good morning- I reviewed your BG data/ message below- these numbers look good overall (some ups/downs but majority are at goal)- continue NPH 25 units at bedtime, Humalog 5 units prior to breakfast, Humalog 8 units prior to lunch and 8 units prior to dinner (+ additional 5 units of Humalog with any higher carb meals as you are doing ( arleth with * if/when you take the extra insulin so I can see if it is working or not). Will review again next week- thanks! KB documented in this encounter [facility] 11-10-2024 Note HNO ID: [id number] Author: EDIE MAYER MD Service: ? Author Type: Physician Type: Progress Notes Filed: 11/11/2024 11:12 Note Text: Dr. Melissa Aguilera NAME: Val Ruiz CLINIC Number.: [id number] Date of : 2000 Date of Visit: November 10, [address] Aguilera: Ms. Val Ruiz was seen for echocardiogram and pediatric cardiology consultation on November 10, 2024. She is a 24 year old woman, referred due to maternal type 2 DM - likely preexisting this . There is no family history of congenital heart disease. echocardiogram on November 10, 2024 at 22 weeks gestation shows atrial situs solitus with levocardia. SVC and IVC return normally to the right atrium. One right and one left pulmonary vein were seen returning normally into the left atrium. The atria were normal in size and there was normal right to left shunting at the atrial level. The left and right ventricles were normal in size and shortening. No ventricular hypertrophy. The ventricular septum appeared intact. Normal mitral and tricuspid valves without significant regurgitation. The left and right ventricular outflow tracts were widely patent. The aortic and ductal arches were widely patent. heart rate and rhythm were regular and no pericardial effusion was seen. Normal Doppler of umbilical artery, umbilical vein, ductus venosus. In summary, the echocardiogram today showed normal intracardiac anatomy with normal ventricular function and normal heart rate and rhythm. We discussed these findings with Ms. Val Ruiz. In addition, the limitations of the echocardiogram and echocardiography in general, including the inability to exclude ASDs, some VSDs, minor valvar abnormalities, partial anomalous pulmonary venous return, persistent patent ductus arteriosus, and coarctation of the aorta, were explained. Based on these data we did not recommend any specific further or cardiac evaluation, though we would be happy to see her back should new concerns arise. Thank you for allowing me to participate in the care of your patient and please do not hesitate to contact me if I can be any further assistance. During this patient visit I have reviewed prior notes and imaging including from referring maternal medicine specialists, devoted time to counseling/coordination of care regarding results of the echocardiogram, clincal manifestations of the identified disease, prognosis, test results and treatment options, formulated and provided my recommendations to other caregivers by verbal and written communication as appropriate and assisted in coordination of care as needed. I spent a total of 45 minutes on the date of the service which included preparing to see the patient, [id number] patient care, completing clinical documentation, obtaining and/or reviewing separately obtained history, performing a medically appropriate examination, counseling and educating the patient/family/caregiver, ordering medications, tests, or procedures, communicating with other HCPs (not separately reported), independently interpreting results (not separately reported), and communicating results to the patient/family/caregiver. Sincerely, Dr. Edie Mayer [facility] 11-10-2024 History of Present illness Narrative Formatting of this note might be differe nt from the original. Dr. Melissa Aguilera NAME: Val Ruiz CLINIC Number.: [id number] Date of : 2000 Date of Visit: November 10, [address] Aguilera: Ms. Val Ruiz was seen for echocardiogram and pediatric cardiology consultation on November 10, 2024. She is a 24 year old woman, referred due to maternal type 2 DM - likely preexisting this . There is no family history of congenital heart disease. echocardiogram on November 10, 2024 at 22 weeks gestation shows atrial situs solitus with levocardia. SVC and IVC return normally to the right atrium. One right and one left pulmonary vein were seen returning normally into the left atrium. The atria were normal in size and there was normal right to left shunting at the atrial level. The left and right ventricles were normal in size and shortening. No ventricular hypertrophy. The ventricular septum appeared intact. Normal mitral and tricuspid valves without significant regurgitation. The left and right ventricular outflow tracts were widely patent. The aortic and ductal arches were widely patent. heart rate and rhythm were regular and no pericardial effusion was seen. Normal Doppler of umbilical artery, umbilical vein, ductus venosus. In summary, the echocardiogram today showed normal intracardiac anatomy with normal ventricular function and normal heart rate and rhythm. We discussed these findings with Ms. Val Ruiz. In addition, the limitations of the echocardiogram and echocardiography in general, including the inability to exclude ASDs, some VSDs, minor valvar abnormalities, partial anomalous pulmonary venous return, persistent patent ductus arteriosus, and coarctation of the aorta, were explained. Based on these data we did not recommend any specific further or cardiac evaluation, though we would be happy to see her back should new concerns arise. Thank you for allowing me to participate in the care of your patient and please do not hesitate to contact me if I can be any further assistance. During this patient visit I have reviewed prior notes and imaging including from referring maternal medicine specialists, devoted time to counseling/coordination of care regarding results of the echocardiogram, clincal manifestations of the identified disease, prognosis, test results and treatment options, formulated and provided my recommendations to other caregivers by verbal and written communication as appropriate and assisted in coordination of care as needed. I spent a total of 45 minutes on the date of the service which included preparing to see the patient, [id number] patient care, completing clinical documentation, obtaining and/or reviewing separately obtained history, performing a medically appropriate examination, counseling and educating the patient/family/caregiver, ordering medications, tests, or procedures, communicating with other HCPs (not separately reported), independently interpreting results (not separately reported), and communicating results to the patient/family/caregiver. Sincerely, Dr. Edie Mayer documented in this encounter [facility] 11-10-2024 Telephone encounter Note Formatting of this note might be differe nt from the original. Reviewed BG data- responded as follows: Good morning- I reviewed your BG data- overall these numbers are at/near goal. Lets increase NPH slightly to 25 units at bedtime continue Humalog 5 units prior to breakfast, Humalog 8 units prior to lunch and 8 units prior to dinner (+ additional 5 units of Humalog with any higher carb meals as you are doing ( arleth with * if/when you take the extra insulin so I can see if it is working or not). You may want to be a bit more aggressive with the use of the higher carb insulin- will help reduce the variability in your post meal data. Will review again next week- thanks! Dr Rocha [facility] 11-10-2024 Miscellaneous Notes Formatting of this note might be differe nt from the original. Reviewed BG data- responded as follows: Good morning- I reviewed your BG data- overall these numbers are at/near goal. Lets increase NPH slightly to 25 units at bedtime continue Humalog 5 units prior to breakfast, Humalog 8 units prior to lunch and 8 units prior to dinner (+ additional 5 units of Humalog with any higher carb meals as you are doing ( arleth with * if/when you take the extra insulin so I can see if it is working or not). You may want to be a bit more aggressive with the use of the higher carb insulin- will help reduce the variability in your post meal data. Will review again next week- thanks! Dr Rocha documented in this encounter [facility] 11-09-2024 Telephone encounter Note Formatting of this note might be differe nt from the original. 2nd risk assessment form submitted 11/09/2024. Melissa Chavez, RN [facility] 11-09-2024 Miscellaneous Notes Formatting of this note might be differe nt from the original. 2nd risk assessment form submitted 11/09/2024. Melissa Chavez RN documented in this encounter [facility] 11-06-2024 Progress note Formatting of this note might be differe nt from the original. KJ - VB No. LOF No. CTXS No. Movement: present. Other c/o: No. Medication list reviewed. Physical Exam See Flow Sheet Gen: no accute distress, well appearing A/P 21w2d Estimated Date of Delivery: 03/17/25 Anatomy US today DM - continue insulin. Follows with . MOD - plans repeat . Alfred Arcos MD [facility] 11-06-2024 Miscellaneous Notes Formatting of this note might be differe nt from the original. KJ - VB No. LOF No. CTXS No. Movement: present. Other c/o: No. Medication list reviewed. Physical Exam See Flow Sheet Gen: no accute distress, well appearing A/P 21w2d Estimated Date of Delivery: 03/17/25 Anatomy US today DM - continue insulin. Follows with . MOD - plans repeat . Alfred Arcos MD documented in this encounter [facility] 11-06-2024 Instructions Yamila Azar MA - 11/06/2024 10:40 AM EST SEQUENTIAL SCREENINGS The [facility] offers sequential screenings for women who are interested in screenings for chromosomal abnormalities and certain defects during a . The sequential screen combines ultrasound and blood tests to determine the risk of chromosomal abnormalities, including Down's Syndrome (Trisomy 21) and Trisomy 18, as well as open neural tube defects including spina bifida. Ultrasound examination is performed between 11 weeks and 13 weeks gestational age. Blood tests are drawn after the ultrasound and again later in the between 15 and 21 weeks gestational age. Please let your physician know if you are interested in this testing. It will require an appointment with our reliability technician. This is not an ultrasound performed by a physician in our office during a routine visit. SIGNS AND SYMPTOMS OF LABOR 1. Contractions every 10 minutes or more often 2. Clear, pink, or brownish fluid (water) leaking from vagina 3. Feeling that baby is pushing down, pressure 4. Low, dull backache 5. Cramps that feel like a period 6. Cramps with or without diarrhea If you notice any of the above symptoms, contact our office at [phone] and ask to speak with a nurse. After hours, you can call doctors registry at [phone] OR call [facility] at [phone] and ask to have the doctor resource protection specialist paged. If you consider this an emergency, dial 9--1 or go to your nearest emergency department. NEED HELP? Are you dealing with a violent or abusive relationship? Are you a victim of rape or sexual assult? Call [facility] ([place]) 24 hour Crisis Hotline: 287.604.2841 or 649-861-5808. MANUAL Your Guide to a Healthy manual is now on-line. Visit [email or web address] to download your free copy documented in this encounter [facility] 11-01-2024 Telephone encounter Note Formatting of this note might be differe nt from the original. Reviewed BG data- responded as follows: Good morning- I reviewed your BG data- are you doing ok with the insulin so far? Assuming so- I would recommend that you do the following: increase NPH to 22 units at bedtime continue Humalog 5 units prior to breakfast, increase Humalog to 8 units prior to lunch and 8 units prior to dinner. I would recommend that you take an additional 5 units of Humalog with any higher carb meals (means if you eat something that you think will increase your blood sugar- take the additional Humalog with that meal. Arleth with * if/when you take the extra insulin so I can see if it is working or not. Will review again next week- thanks! KB [facility] 11-01-2024 Miscellaneous Notes Formatting of this note might be differe nt from the original. Reviewed BG data- responded as follows: Good morning- I reviewed your BG data- are you doing ok with the insulin so far? Assuming so- I would recommend that you do the following: increase NPH to 22 units at bedtime continue Humalog 5 units prior to breakfast, increase Humalog to 8 units prior to lunch and 8 units prior to dinner. I would recommend that you take an additional 5 units of Humalog with any higher carb meals (means if you eat something that you think will increase your blood sugar- take the additional Humalog with that meal. Arleth with * if/when you take the extra insulin so I can see if it is working or not. Will review again next week- thanks! KB documented in this encounter [facility] 10-28-2024 Note HNO ID: [id number] Author: ?, ?, ? Service: ? Author Type: ? Type: Progress Notes Filed: 10/28/2024 09:38 Note Text: Left voicemail for patient to call [phone] to schedule 6 week virtual follow up with Dr. Rocha. Sent patient my chart message to call [phone] to schedule 6 week follow up virtual appointment with Dr. Rocha. [facility] 10-27-2024 Note HNO ID: [id number] Author: ?, ?, ? Service: ? Author Type: ? Type: Progress Notes Filed: 10/27/2024 11:59 Note Text: Left voicemail for patient to call [phone] to schedule 6 week virtual follow up with Dr. Rocha. [facility] 10-26-2024 Note HNO ID: [id number] Author: ?, ?, ? Service: ? Author Type: ? Type: Progress Notes Filed: 10/26/2024 12:28 Note Text: Left voicemail for patient to call [phone] to schedule 6 week virtual follow up with Dr. Rocha. [facility] 10-24-2024 History of Present illness Narrative Formatting of this note is different fro m the original. Reason for consultation: Evaluation of gestational diabetes mellitus Referring Physician: Melissa Aguilera MD My final recommendations will be communicated back to the requesting physician by way of shared Medical record or letter via [place] mail. This Team Access Model visit is a virtual encounter. It required patient-provider interaction for the medical decision making as documented below. I have communicated my name and active licensure. The patient's identity and physical location were verified at the time of this visit. Either the patient or their legal senior sales representative has been informed of the risks and benefits of -- and alternatives to -- treatment through a remote evaluation and consents to proceed with the evaluation remotely. HISTORY OF PRESENT ILLNESS; Ms. Ruiz is a 24 year old presenting at 19+ weeks gestation for consultation regarding her recent diagnosis of gestational diabetes mellitus. She was diagnosed with GDM after abnormal 1 hour GTT on 09/18 (BG 312 mg/dL). HbA1c at that time was 5.8%- suggestive of preexisting beta cell dysfunction (but not necessarily overt diabetes). She has a previous history of gestational diabetes- has a 4 year old daughter. State she was taking oral agents. 8lbs delivered by (failed induction). Family hx of diabetes in maternal grandfather. Mother and GDM in two pregnancies. Her prepregnancy weight was 168 lbs and her current weight is 176 lbs. Some morning sickness. Her dietary history is as follows: Breakfast: yogurt, sometimes protein bar Lunch: yogurt, salad Dinner: eats at home, variable. She has been checking her blood glucose 4 times daily. Fasting 113-134 2 hour post meal 114-201 mg/dL. Hypoglycemia frequency: n/a Hypoglycemia awareness: n/a Hyperglycemia Symptoms: denies blurry vision reports polyuria denies polydipsia reports nocturia denies rapid weight loss Saw Dr Aguilera on 10/09- Last u/s was 10/09- EFW [address] centile, AC 51st, [place]- having a boy! No complaints/concerns at this time- feels ok overall. PAST MEDICAL HISTORY Diagnosis Date Asthma Bipolar PAST SURGICAL HISTORY Procedure Laterality Date SECTION HX 07/08/2020 primary d/t Gestational diabetes- suspected LGA TONSILLECTOMY & ADENOIDECTOMY <AGE 12 2005 FAMILY HISTORY Problem Relation Age of Onset No Known Problems Sister No Known Problems Brother Diabetes Maternal Grandfather Social History Tobacco Use Smoking status: Never Smokeless tobacco: Never Vaping Use Vaping status: Former Substance Use Topics Alcohol use: Not Currently Drug use: Never Current Outpatient Medications Medication Sig Dispense Refill amoxicillin (AMOXIL) 875 mg tablet Take 1 tablet by mouth two times a day for 10 days. 20 tablet 0 Blood-Glucose Meter Use as directed to check glucose levels up to seven times daily. 1 Each 0 blood sugar diagnostic test strip Use as directed to check glucose levels up to seven times daily. 200 Strip 8 Lancets Use as directed to check glucose levels up to seven times daily. 200 Each 8 alcohol swabs (ALCOHOL PREP PADS) Use as directed to check glucose levels up to seven times daily. 200 Each 8 diphenhydramine HCl (BENADRYL ALLERGY ORAL) Take by mouth daily at bedtime. fluticasone (FLONASE) 50 mcg/actuation nasal spray Use 2 Sprays in each nostril once daily. Rinse mouth after use. 1 Each 0 aspirin, enteric coated (ECOTRIN LOW STRENGTH) 81 mg EC tablet Take 1 tablet by mouth once daily. 90 tablet 3 citalopram (CELEXA) 20 mg tablet Take 20 mg by mouth once daily. no115/iron/folic acid ( 19 ORAL) Take 1 tablet by mouth once daily. albuterol HFA (PROVENTIL HFA, VENTOLIN HFA) 90 mcg/actuation inhaler Inhale 2 Puffs as instructed every 4 hours as needed for wheezing/shortness of breath. 8 g 0 QUEtiapine (SEROQUEL) 25 mg tablet (Patient not taking: Reported on 10/09/2024) No current facility-administered medications for this visit. Allergies As of Date: 10/24/2024 Allergen Noted Reaction CEPHALEXIN 05/01/2022 Rash Fully Assessed 10/20/2024 REVIEW OF SYSTEMS: General: no fever and no chills Skin: no rashes, pruritis or dry skin Eyes: no blurred or double vision or eye pain Cardiac: denies chest pain, heart palpitations or orthopnea Pulmonary: denies wheezing, productive cough or exertional dyspnea GI: denies nausea and denies vomiting Musc: denies history of upper or lower extremity weakness Reproductive: gravid at 19 weeks gestation, menses regular prior to the Endocrine: complains of polyuria and nocturia Hematology: Negative for anemia, easy bleeding and bruising. PHYSICAL EXAM: No vitals as this was a virtual visit. GENERAL: Alert, no distress, cooperative SKIN: Skin color, texture, turgor normal. No rashes or lesions. HEAD/SINUSES: No significant findings EYES: sclera non-icteric, EOMs intact. ABDOMEN: gravid at 19+ weeks EXTREMITIES: Normal exam of the extremities NEURO: AAO x 3 no focal deficits The remainder of the physical exam is noncontributory. DATA: Hemoglobin A1C (%) Date Value 09/11/2024 5.8 Latest Ref Rng 09/18/2024 Glucose Scrn, Preg 74 - 134 mg/dL 312 (H) IMPRESSION: Ms. Ruiz is a 24 year old female at 19+ weeks gestation here for evaluation of gestational diabetes mellitus. RECOMMENDATIONS: 1. The patient was counseled regarding the maternal and risks of hyperglycemia during . risks include, but are not limited to: congenital abnormalities, hypoxia and stillbirth, macrosomia, shoulder dystocia and hypoglycemia. Maternal risks include increased risks of pre-eclampsia and delivery. 2. I recommend the patient check her blood glucose fasting and 2 hour after each meal, we have provided her with a glucometer if she does not have one. The following blood glucose targets were discussed: fasting blood glucose concentration between 60-90 mg/dL, and 2 hour postprandial blood glucose concentration of less than 120 mg/dL. She was encouraged to limit carbohydrate intake, to walk after meals, (if not contraindicated) and will be scheduled with our dietitian, (if not done already). Regarding her blood glucose management, I recommend she do the followin) check your sugars fasting (60-90 mg/dL) and 2 hours post meal (less than 120 mg/dL) 2) forward me your blood glucose data weekly ( )- send by the end of this coming week 3) start insulin as follows: NPH 15 units at bedtime Humalog 5 units prior to meals You should have a voucher for this- if not- let me know and my RN will send to your pharmacy. 4) see me in 6 weeks (virtual visit ok) for f/u- my office will reach out to schedule this- Val will call us with any questions or concerns in the interim. 3. Patient will require repeat 2 hr 75g OGTT 8 weeks after delivery to ensure resolution of diabetes. She was counseled that her chances of future pregnancies complicated by diabetes are high, and her 5 year risk of developing diabetes approaches 50%. Adherence to proper diet and exercise regimen will help reduce these risks. I spent a total of 60 minutes on the date of the service which included preparing to see the patient, [id number] patient care, completing clinical documentation, obtaining and/or reviewing separately obtained history, performing a medically appropriate examination, counseling and educating the patient/family/caregiver, and ordering medications, tests, or procedures. Lalito Rocha DO documented in this encounter [facility] 10-24-2024 Note HNO ID: [id number] Author: LALITO ROCHA DO Service: ? Author Type: Physician Type: Progress Notes Filed: 10/24/2024 15:15 Note Text: Reason for consultation: Evaluation of gestational diabetes mellitus Referring Physician: Melissa Aguilera MD My final recommendations will be communicated back to the requesting physician by way of shared Medical record or letter via [place] mail. This Team Access Model visit is a virtual encounter. It required patient-provider interaction for the medical decision making as documented below. I have communicated my name and active licensure. The patient's identity and physical location were verified at the time of this visit. Either the patient or their legal senior sales representative has been informed of the risks and benefits of -- and alternatives to -- treatment through a remote evaluation and consents to proceed with the evaluation remotely. HISTORY OF PRESENT ILLNESS; Ms. Ruiz is a 24 year old presenting at 19+ weeks gestation for consultation regarding her recent diagnosis of gestational diabetes mellitus. She was diagnosed with GDM after abnormal 1 hour GTT on 09/18 (BG 312 mg/dL). HbA1c at that time was 5.8%- suggestive of preexisting beta cell dysfunction (but not necessarily overt diabetes). She has a previous history of gestational diabetes- has a 4 year old daughter. State she was taking oral agents. 8lbs delivered by (failed induction). Family hx of diabetes in maternal grandfather. Mother and GDM in two pregnancies. Her prepregnancy weight was 168 lbs and her current weight is 176 lbs. Some morning sickness. Her dietary history is as follows: Breakfast: yogurt, sometimes protein bar Lunch: yogurt, salad Dinner: eats at home, variable. She has been checking her blood glucose 4 times daily. Fasting 113-134 2 hour post meal 114-201 mg/dL. Hypoglycemia frequency: n/a Hypoglycemia awareness: n/a Hyperglycemia Symptoms: denies blurry vision reports polyuria denies polydipsia reports nocturia denies rapid weight loss Saw Dr Aguilera on 10/09- Last u/s was 10/09- EFW [address] cent[address], AC [address], [place]- having a boy! No complaints/concerns at this time- feels ok overall. PAST MEDICAL HISTORY Diagnosis Date Asthma Bipolar PAST SURGICAL HISTORY Procedure Laterality Date SECTION HX 07/08/2020 primary d/t Gestational diabetes- suspected LGA TONSILLECTOMY AND ADENOIDECTOMY 2006 FAMILY HISTORY Problem Relation Age of Onset No Known Problems Sister No Known Problems Brother Diabetes Maternal Grandfather Social History Tobacco Use Smoking status: Never Smokeless tobacco: Never Vaping Use Vaping status: Former Substance Use Topics Alcohol use: Not Currently Drug use: Never Current Outpatient Medications Medication Sig Dispense Refill amoxicillin (AMOXIL) 875 mg tablet Take 1 tablet by mouth two times a day for 10 days. 20 tablet 0 Blood-Glucose Meter Use as directed to check glucose levels up to seven times daily. 1 Each 0 blood sugar diagnostic test strip Use as directed to check glucose levels up to seven times daily. 200 Strip 8 Lancets Use as directed to check glucose levels up to seven times daily. 200 Each 8 alcohol swabs (ALCOHOL PREP PADS) Use as directed to check glucose levels up to seven times daily. 200 Each 8 diphenhydramine HCl (BENADRYL ALLERGY ORAL) Take by mouth daily at bedtime. fluticasone (FLONASE) 50 mcg/actuation nasal spray Use 2 Sprays in each nostril once daily. Rinse mouth after use. 1 Each 0 aspirin, enteric coated (ECOTRIN LOW STRENGTH) 81 mg EC tablet Take 1 tablet by mouth once daily. 90 tablet 3 citalopram (CELEXA) 20 mg tablet Take 20 mg by mouth once daily. no115/iron/folic acid ( 19 ORAL) Take 1 tablet by mouth once daily. albuterol HFA (PROVENTIL HFA, VENTOLIN HFA) 90 mcg/actuation inhaler Inhale 2 Puffs as instructed every 4 hours as needed for wheezing/shortness of breath. 8 g 0 QUEtiapine (SEROQUEL) 25 mg tablet (Patient not taking: Reported on 10/09/2024) No current facility-administered medications for this visit. Allergies As of Date: 10/24/2024 Allergen Noted Reaction CEPHALEXIN 05/01/2022 Rash Fully Assessed 10/20/2024 REVIEW OF SYSTEMS: General: no fever and no chills Skin: no rashes, pruritis or dry skin Eyes: no blurred or double vision or eye pain Cardiac: denies chest pain, heart palpitations or orthopnea Pulmonary: denies wheezing, productive cough or exertional dyspnea GI: denies nausea and denies vomiting Musc: denies history of upper or lower extremity weakness Reproductive: gravid at 19 weeks gestation, menses regular prior to the Endocrine: complains of polyuria and nocturia Hematology: Negative for anemia, easy bleeding and bruising. PHYSICAL EXAM: No vitals as this was a virtual visit. GENERAL: Alert, no distress, cooperative SKIN: Skin color, texture, turgor normal. N (more content not included)... [facility] 10-20-2024 Telephone encounter Note Formatting of this note might be differe nt from the original. Patient referred by Dr. Aguilera for GDM, patient had been scheduled with Dr. Alonzo , patient did not realize that was the wrong physician. Rescheduled to see Dr. Rocha 10/24/2024 @ 2:20 pm. Patient has been logging BG , patient had been logging at 1 hour post meal, advised patient to make sure she noted on logs when it was one hour and then when she started testing 2 hour post meal. Patient sent logs and Dr. Rocha email. [facility] 10-20-2024 Miscellaneous Notes Formatting of this note might be differe nt from the original. Patient referred by Dr. Aguilera for GDM, patient had been scheduled with Dr. Alonzo , patient did not realize that was the wrong physician. Rescheduled to see Dr. Rocha 10/24/2024 @ 2:20 pm. Patient has been logging BG , patient had been logging at 1 hour post meal, advised patient to make sure she noted on logs when it was one hour and then when she started testing 2 hour post meal. Patient sent logs and Dr. Rocha email. documented in this encounter [facility] 10-20-2024 Note HNO ID: [id number] Author: ARLETH GILLESPIE PA-C Service: ? Author Type: Physician Blind Aide Type: Progress Notes Filed: 10/20/2024 09:35 Note Text: This note was created using [employer]. Subjective Val Ruiz is a 24 year old female. Patient is a 24-year-old female who complains of worsening congestion, sinus pressure, ear fullness and sore throat that she has been experiencing for the past 2 weeks. Patient reports no fever, chills or myalgia, although the patient states that she may have developed a low-grade fever this morning. Patient's temperature upon arrival today is 97.5 degrees. Patient has no history of asthma or COPD and does not smoke. Patient is currently 19 weeks gestation. Sinus Problem Associated symptoms include congestion, coughing and a sore throat. Review of Systems HENT: Positive for congestion, postnasal drip, sinus pressure, sinus pain and sore throat. Respiratory: Positive for cough. All other systems reviewed and are negative. Objective BP 122/70 Pulse 82 Temp 36.4 ?C (97.5 ?F) Resp 16 Wt 80.2 kg (176 lb 12.9 oz) LMP 06/10/2024 SpO2 98% BMI 35.71 kg/m? Physical Exam Vitals and nursing note reviewed. Constitutional: Appearance: Normal appearance. She is normal weight. HENT: Head: Normocephalic and atraumatic. Right Ear: Tympanic membrane, ear canal and external ear normal. Left Ear: Tympanic membrane, ear canal and external ear normal. Nose: Nose normal. Mouth/Throat: Mouth: Mucous membranes are moist. Pharynx: Oropharynx is clear. Eyes: Extraocular Movements: Extraocular movements intact. Conjunctiva/sclera: Conjunctivae normal. Pupils: Pupils are equal, round, and reactive to light. Cardiovascular: Rate and Rhythm: Normal rate and regular rhythm. Pulses: Normal pulses. Heart sounds: Normal heart sounds. Pulmonary: Effort: Pulmonary effort is normal. Breath sounds: Normal breath sounds. Musculoskeletal: Cervical back: Normal range of motion and neck supple. Skin: General: Skin is warm and dry. Capillary Refill: Capillary refill takes less than 2 seconds. Neurological: General: No focal deficit present. Mental Status: She is alert and oriented to person, place, and time. Psychiatric: Mood and Affect: Mood normal. Behavior: Behavior normal. Thought Content: Thought content normal. Judgment: Judgment normal. Assessment and Plan Physical exam findings as noted above. Patient was provided with a prescription for amoxicillin 875 mg and supportive care instructions were discussed. Patient verbalizes good understanding of same. CLINICAL IMPRESSION: Acute Sinusitis ASSESSMENT/PLAN: 1. Acute non-recurrent sinusitis, unspecified location - ICD9: 461.9, ICD10: J01.90 - AMOXICILLIN 875 MG TABLET Arleth Gillespie PA-C [facility] 10-20-2024 History of Present illness Narrative Formatting of this note might be differe nt from the original. This note was created using [employer]. Subjective Val Ruiz is a 24 year old female. Patient is a 24-year-old female who complains of worsening congestion, sinus pressure, ear fullness and sore throat that she has been experiencing for the past 2 weeks. Patient reports no fever, chills or myalgia, although the patient states that she may have developed a low-grade fever this morning. Patient's temperature upon arrival today is 97.5 degrees. Patient has no history of asthma or COPD and does not smoke. Patient is currently 19 weeks gestation. Sinus Problem Associated symptoms include congestion, coughing and a sore throat. Review of Systems HENT: Positive for congestion, postnasal drip, sinus pressure, sinus pain and sore throat. Respiratory: Positive for cough. All other systems reviewed and are negative. Objective BP 122/70 Pulse 82 Temp 36.4 C (97.5 F) Resp 16 Wt 80.2 kg (176 lb 12.9 oz) LMP 06/10/2024 SpO2 98% BMI 35.71 kg/m Physical Exam Vitals and nursing note reviewed. Constitutional: Appearance: Normal appearance. She is normal weight. HENT: Head: Normocephalic and atraumatic. Right Ear: Tympanic membrane, ear canal and external ear normal. Left Ear: Tympanic membrane, ear canal and external ear normal. Nose: Nose normal. Mouth/Throat: Mouth: Mucous membranes are moist. Pharynx: Oropharynx is clear. Eyes: Extraocular Movements: Extraocular movements intact. Conjunctiva/sclera: Conjunctivae normal. Pupils: Pupils are equal, round, and reactive to light. Cardiovascular: Rate and Rhythm: Normal rate and regular rhythm. Pulses: Normal pulses. Heart sounds: Normal heart sounds. Pulmonary: Effort: Pulmonary effort is normal. Breath sounds: Normal breath sounds. Musculoskeletal: Cervical back: Normal range of motion and neck supple. Skin: General: Skin is warm and dry. Capillary Refill: Capillary refill takes less than 2 seconds. Neurological: General: No focal deficit present. Mental Status: She is alert and oriented to person, place, and time. Psychiatric: Mood and Affect: Mood normal. Behavior: Behavior normal. Thought Content: Thought content normal. Judgment: Judgment normal. Assessment and Plan Physical exam findings as noted above. Patient was provided with a prescription for amoxicillin 875 mg and supportive care instructions were discussed. Patient verbalizes good understanding of same. CLINICAL IMPRESSION: Acute Sinusitis ASSESSMENT/PLAN: 1. Acute non-recurrent sinusitis, unspecified location - ICD9: 461.9, ICD10: J01.90 - AMOXICILLIN 875 MG TABLET Arleth Gillespie PA-C documented in this encounter [facility] 10-15-2024 Telephone encounter Note Formatting of this note might be differe nt from the original. Patient returned call to the office after multiple attempts to reach her. Patients OB reached out to Dr. Rocha to see patient. Patient is scheduled with Dr. Alonzo on 11/03/2024 so she did not realize this was not the appointment that I was referring to when I left the messages. Patient would like to see Dr. Rocha, would prefer virtual if she could, patient did say that if it is necessary she would come to the office. Patient is recording her blood sugars, patient had GDM in previous . Will send logs with instructions to email weekly to [email or web address] Patient advised that she signed a CARMENZA for her records to be sent to [facility]. First available appointment is 10/29/2024 Please advise for scheduling. Thank you [facility] 10-15-2024 Miscellaneous Notes Formatting of this note might be differe nt from the original. Patient returned call to the office after multiple attempts to reach her. Patients OB reached out to Dr. Rocha to see patient. Patient is scheduled with Dr. Alonzo on 11/03/2024 so she did not realize this was not the appointment that I was referring to when I left the messages. Patient would like to see Dr. Rocha, would prefer virtual if she could, patient did say that if it is necessary she would come to the office. Patient is recording her blood sugars, patient had GDM in previous . Will send logs with instructions to email weekly to [email or web address] Patient advised that she signed a CARMENZA for her records to be sent to [facility]. First available appointment is 10/29/2024 Please advise for scheduling. Thank you documented in this encounter [facility] 10-13-2024 Telephone encounter Note Formatting of this note might be differe nt from the original. Left voicemail for patient to call [phone] (direct line) to Dr. Rocha's office to schedule with Dr. Rocha. [facility] 10-13-2024 Miscellaneous Notes Formatting of this note might be differe nt from the original. Left voicemail for patient to call [phone] (direct line) to Dr. Rocha's office to schedule with Dr. Rocha. documented in this encounter [facility] 10-12-2024 Telephone encounter Note Formatting of this note might be differe nt from the original. Left voicemail for patient to call [phone] to schedule appointment with Dr. Rocha. [facility] 10-12-2024 Miscellaneous Notes Formatting of this note might be differe nt from the original. Left voicemail for patient to call [phone] to schedule appointment with Dr[address] Rocha. documented in this encounter [facility] 10-09-2024 Note Addended by: MELISSA AGUILERA on: 10/09/2024 05:10 PM Modules accepted: Orders [facility] 10-09-2024 Miscellaneous Notes Addended by: MELISSA AGUILERA on: 025 05:10 PM Modules accepted: Orders S: Val Ruiz is a 24 year old female who presents at 03/17/2025, Date entered prior to episode creation for a routine visit. Denies headache, visual changes, chest pain, shortness of breath, vaginal bleeding, leakage of fluid, or dysuria. Feeling well, no complaints. O: See flow sheet Gen: No apparent distress Early anatomy completed today and normal A1c elevated. Early 1 hr GCT completed and 312. Has been following BG since 09/25/24 All values are elevated. Does not seem to matter what she eats. Fasting 130-150. PP 150-250. Patient feels she was diabetic prior to but did not have a PCP. Discussed endocrinology referral for insulin management. Encouraged follow up testing after to confirm diagnosis ASSESSMENT/PLAN: 1. Elevated glucose tolerance test - ICD9: 790.22, ICD10: R73.09 (primary diagnosis) - URINE OB DIP B/O 2. Encounter for supervision of other normal in second trimester - ICD9: V22.1, ICD10: Z34.82 - URINE OB DIP B/O 3. 17 weeks gestation of - ICD9: V22.2, ICD10: Z3A.17 - URINE OB DIP B/O - CONSULT TO ENDOCRINOLOGY 4. Pre-existing type 2 diabetes mellitus during in first trimester - ICD9: 648.03, 250.00, ICD10: O24.111 - New diagnosis - Referral to Endocrinology for further diabetes management - Counseled on healthy diet and regular exercise - CONSULT TO ENDOCRINOLOGY Melissa Aguilera MD documented in this encounter [facility] 10-09-2024 Progress note Formatting of this note might be differe nt from the original. Anatomy ultrasound reviewed. No abnormalities identified. Follow up as clinically indicated. Please place copy in ob chart. Gee Carlin MD [facility] Work Phone: 10-09-2024 Miscellaneous Notes Formatting of this note might be differe nt from the original. Anatomy ultrasound reviewed. No abnormalities identified. Follow up as clinically indicated. Please place copy in ob chart. Gee Carlin MD documented in this encounter [facility] 10-09-2024 Progress note Formatting of this note might be differe nt from the original. S: Val Ruiz is a 24 year old female who presents at 03/17/2025, Date entered prior to episode creation for a routine visit. Denies headache, visual changes, chest pain, shortness of breath, vaginal bleeding, leakage of fluid, or dysuria. Feeling well, no complaints. O: See flow sheet Gen: No apparent distress Early anatomy completed today and normal A1c elevated. Early 1 hr GCT completed and 312. Has been following BG since 09/25/24 All values are elevated. Does not seem to matter what she eats. Fasting 130-150. PP 150-250. Patient feels she was diabetic prior to but did not have a PCP. Discussed endocrinology referral for insulin management. Encouraged follow up testing after to confirm diagnosis ASSESSMENT/PLAN: 1. Elevated glucose tolerance test - ICD9: 790.22, ICD10: R73.09 (primary diagnosis) - URINE OB DIP B/O 2. Encounter for supervision of other normal in second trimester - ICD9: V22.1, ICD10: Z34.82 - URINE OB DIP B/O 3. 17 weeks gestation of - ICD9: V22.2, ICD10: Z3A.17 - URINE OB DIP B/O - CONSULT TO ENDOCRINOLOGY 4. Pre-existing type 2 diabetes mellitus during in first trimester - ICD9: 648.03, 250.00, ICD10: O24.111 - New diagnosis - Referral to Endocrinology for further diabetes management - Counseled on healthy diet and regular exercise - CONSULT TO ENDOCRINOLOGY Melissa Aguilera MD [facility] 10-09-2024 Instructions Janina Flores MA - 10/09/2024 1:43 PM EST SEQUENTIAL SCREENINGS The [facility] offers sequential screenings for women who are interested in screenings for chromosomal abnormalities and certain defects during a . The sequential screen combines ultrasound and blood tests to determine the risk of chromosomal abnormalities, including Down's Syndrome (Trisomy 21) and Trisomy 18, as well as open neural tube defects including spina bifida. Ultrasound examination is performed between 11 weeks and 13 weeks gestational age. Blood tests are drawn after the ultrasound and again later in the between 15 and 21 weeks gestational age. Please let your physician know if you are interested in this testing. It will require an appointment with our reliability technician. This is not an ultrasound performed by a physician in our office during a routine visit. SIGNS AND SYMPTOMS OF LABOR 1. Contractions every 10 minutes or more often 2. Clear, pink, or brownish fluid (water) leaking from vagina 3. Feeling that baby is pushing down, pressure 4. Low, dull backache 5. Cramps that feel like a period 6. Cramps with or without diarrhea If you notice any of the above symptoms, contact our office at [phone] and ask to speak with a nurse. After hours, you can call doctors registry at [phone] OR call [facility] at [phone] and ask to have the doctor resource protection specialist paged. If you consider this an emergency, dial 9--1 or go to your nearest emergency department. NEED HELP? Are you dealing with a violent or abusive relationship? Are you a victim of rape or sexual assult? Call [facility] ([place]) 24 hour Crisis Hotline: 932.461.8141 or 304-900-0738. MANUAL Your Guide to a Healthy manual is now on-line. Visit [email or web address] to download your free copy documented in this encounter [facility] 09-22-2024 Note HNO ID: [id number] Author: JANICE COLE RN Service: ? Author Type: Registered Nurse Type: Progress Notes Filed: 09/22/2024 13:24 Note Text: DIABETES CARE AND EDUCATION VISIT Location: [place] Type of visit: In person individual PATIENT'S MAIN CONCERN TODAY: GDM Support person present for education today: none Cognitive ability: Alert and oriented Motivation to learn: Interested Learning barriers identified by educator: none Method of instruction: written, verbal, and demonstration DIABETES FINDINGS: Past hx of GDM requiring medication support Monitoring: Reviewed monitoring and timing of testing Meal Planning: Reviewed basic meal planning for Medications: Discussed Insulin as most commonly used compound in Problem Solving:Reviewed Hyper and hypoglycemia Physical Activity: benefits of activity to help body regulate the sugarss reviewed Reducing Risks: Benefits to patient and developing child from tight managing of sugars HANDOUTS: Healthy You: Diabetes and LEARNING RESPONSE: Diabetes pathophysiology: Demonstrated understanding/competency today or at previous visit Healthy eating: Demonstrated understanding/competency today or at previous visit Being active: Demonstrated understanding/competency today or at previous visit Taking medications: Demonstrated understanding/competency today or at previous visit Monitoring glucose: Demonstrated understanding/competency today or at previous visit Acute complications: Demonstrated understanding/competency today or at previous visit POSSIBLE FUTURE TOPICS: 1. DIABETES CARE AND EDUCATION PLAN: Education completed and annual diabetes education follow-up visit recommended Time Spent (Minutes): 30 This visit note will be communicated to the healthcare provider via access to shared medical record. SIGNATURE: Janice Cole RN PATIENT NAME: Val Ruiz DATE: September 22, 2024 TIME: 12:45 PM [facility] 09-22-2024 History of Present illness Narrative Formatting of this note might be differe nt from the original. DIABETES CARE AND EDUCATION VISIT Location: [place] Type of visit: In person individual PATIENT'S MAIN CONCERN TODAY: GDM Support person present for education today: none Cognitive ability: Alert and oriented Motivation to learn: Interested Learning barriers identified by educator: none Method of instruction: written, verbal, and demonstration DIABETES FINDINGS: Past hx of GDM requiring medication support Monitoring: Reviewed monitoring and timing of testing Meal Planning: Reviewed basic meal planning for Medications: Discussed Insulin as most commonly used compound in Problem Solving:Reviewed Hyper and hypoglycemia Physical Activity: benefits of activity to help body regulate the sugarss reviewed Reducing Risks: Benefits to patient and developing child from tight managing of sugars HANDOUTS: Healthy You: Diabetes and LEARNING RESPONSE: Diabetes pathophysiology: Demonstrated understanding/competency today or at previous visit Healthy eating: Demonstrated understanding/competency today or at previous visit Being active: Demonstrated understanding/competency today or at previous visit Taking medications: Demonstrated understanding/competency today or at previous visit Monitoring glucose: Demonstrated understanding/competency today or at previous visit Acute complications: Demonstrated understanding/competency today or at previous visit POSSIBLE FUTURE TOPICS: 1. DIABETES CARE AND EDUCATION PLAN: Education completed and annual diabetes education follow-up visit recommended Time Spent (Minutes): 30 This visit note will be communicated to the healthcare provider via access to shared medical record. SIGNATURE: Janice Cole RN PATIENT NAME: Val Riuz DATE: September 22, 2024 TIME: 12:45 PM documented in this encounter [facility] 09-18-2024 Telephone encounter Note Formatting of this note might be differe nt from the original. Patient notified of results, verbalizes understanding of instructions. Patient transferred to [facility] to make appointments. Edel Rios RN [facility] 09-18-2024 Miscellaneous Notes Formatting of this note might be differe nt from the original. Patient notified of results, verbalizes understanding of instructions. Patient transferred to [facility] to make appointments. Edel Rios RN Please notify patient: Early 1 hour >200, consistent with GDM. Supplies ordered. Nutrition consult and diabetes consult placed. Growth ultrasounds every 4 weeks at 28 weeks ordered. Patient to bring glucose logs to next appointment. lEba Khanna APRN.CNP documented in this encounter [facility] 09-18-2024 Telephone encounter Note Formatting of this note might be differe nt from the original. Please notify patient: Early 1 hour >200, consistent with GDM. Supplies ordered. Nutrition consult and diabetes consult placed. Growth ultrasounds every 4 weeks at 28 weeks ordered. Patient to bring glucose logs to next appointment. Elba Khanna APRN.CNP [facility] 09-17-2024 Telephone encounter Note Formatting of this note might be differe nt from the original. Pt notified of all details below. Transferred Pt to [facility] to get appointments scheduled. Pt denies questions/concerns. Lisa Thompson RN [facility] 09-17-2024 Miscellaneous Notes Formatting of this note might be differe nt from the original. Pt notified of all details below. Transferred Pt to [facility] to get appointments scheduled. Pt denies questions/concerns. Lisa Thompson RN ----- Message from Kati Rolle APRN.CNM sent at 09/15/2024 9:46 AM EST ----- Reviewed. Needs anatomy US at 16 & 20 weeks. Kati Rolle APRN.CNM Left message for patient to call office to notify of below information as well as her anemia reflex results-Mychart message was sent to Pt by provider. Lisa Thompson RN ----- Message from Kati Rolle APRN.CNM sent at 09/15/2024 9:40 AM EST ----- Hemoglobin A1C is elevated. It is recommended she complete an early 1 hour GCT test. Order placed. Please notify patient and assist with scheduling. Kati Rolle APRN.CNM documented in this encounter [facility] 09-15-2024 Telephone encounter Note Formatting of this note might be differe nt from the original. ----- Message from Kati Rolle APRN.CNM sent at 09/15/2024 9:46 AM EST ----- Reviewed. Needs anatomy US at 16 & 20 weeks. Kati Rolle APRN.CNM [facility] 09-15-2024 Telephone encounter Note Formatting of this note might be differe nt from the original. Left message for patient to call office to notify of below information as well as her anemia reflex results-Mychart message was sent to Pt by provider. Lisa Thompson RN [facility] 09-15-2024 Telephone encounter Note Formatting of this note might be differe nt from the original. ----- Message from Kati Rolle APRN.CNM sent at 09/15/2024 9:40 AM EST ----- Hemoglobin A1C is elevated. It is recommended she complete an early 1 hour GCT test. Order placed. Please notify patient and assist with scheduling. Kati Rolle APRN.CNM [facility] 09-11-2024 Progress note Formatting of this note might be differe nt from the original. S: Val Ruiz is a 24 year old female who presents at 03/17/2025, Date entered prior to episode creation for a routine visit. Denies headache, visual changes, chest pain, shortness of breath, vaginal bleeding, leakage of fluid, or dysuria. O: See flow sheet Gen: No apparent distress NT completed today Desires NIPT Will get labs after visit today Unsure about c/s vs TOLAC. Previous delivery at [facility]. Induction for GDM. Does not feel she was given a proper trial of labor before c/s. Obtaining records. She would be ok with repeat Depression and anxiety stable with meds. Did have significant pp last but also had a lot of social issues at the time. This FOB is a different FOB. He is more supportive ASSESSMENT/PLAN: 1. 13 weeks gestation of - ICD9: V22.2, ICD10: Z3A.13 (primary diagnosis) 2. Encounter for supervision of other normal in second trimester - ICD9: V22.1, ICD10: Z34.82 - OBSTETRIC ULTRASOUND WHI - [id number] PLUS Melissa Aguilera MD [facility] 09-11-2024 Miscellaneous Notes Formatting of this note might be differe nt from the original. S: Val Ruiz is a 24 year old female who presents at 03/17/2025, Date entered prior to episode creation for a routine visit. Denies headache, visual changes, chest pain, shortness of breath, vaginal bleeding, leakage of fluid, or dysuria. O: See flow sheet Gen: No apparent distress NT completed today Desires NIPT Will get labs after visit today Unsure about c/s vs TOLAC. Previous delivery at [facility]. Induction for GDM. Does not feel she was given a proper trial of labor before c/s. Obtaining records. She would be ok with repeat Depression and anxiety stable with meds. Did have significant pp last but also had a lot of social issues at the time. This FOB is a different FOB. He is more supportive ASSESSMENT/PLAN: 1. 13 weeks gestation of - ICD9: V22.2, ICD10: Z3A.13 (primary diagnosis) 2. Encounter for supervision of other normal in second trimester - ICD9: V22.1, ICD10: Z34.82 - OBSTETRIC ULTRASOUND WHI - [id number] PLUS Melissa Aguilera MD documented in this encounter [facility] 09-11-2024 Instructions Johanne Chapa LPN - 09/11/2024 11:03 AM EST SEQUENTIAL SCREENINGS The [facility] offers sequential screenings for women who are interested in screenings for chromosomal abnormalities and certain defects during a . The sequential screen combines ultrasound and blood tests to determine the risk of chromosomal abnormalities, including Down's Syndrome (Trisomy 21) and Trisomy 18, as well as open neural tube defects including spina bifida. Ultrasound examination is performed between 11 weeks and 13 weeks gestational age. Blood tests are drawn after the ultrasound and again later in the between 15 and 21 weeks gestational age. Please let your physician know if you are interested in this testing. It will require an appointment with our reliability technician. This is not an ultrasound performed by a physician in our office during a routine visit. SIGNS AND SYMPTOMS OF LABOR 1. Contractions every 10 minutes or more often 2. Clear, pink, or brownish fluid (water) leaking from vagina 3. Feeling that baby is pushing down, pressure 4. Low, dull backache 5. Cramps that feel like a period 6. Cramps with or without diarrhea If you notice any of the above symptoms, contact our office at [phone] and ask to speak with a nurse. After hours, you can call doctors registry at [phone] OR call [facility] at [phone] and ask to have the doctor resource protection specialist paged. If you consider this an emergency, dial 9-1-1 or go to your nearest emergency department. NEED HELP? Are you dealing with a violent or abusive relationship? Are you a victim of rape or sexual assult? Call [facility] ([place]) 24 hour Crisis Hotline: 506.111.3787 or 818-455-6748. MANUAL Your Guide to a Healthy manual is now on-line. Visit [email or web address] to download your free copy documented in this encounter [facility] 08-15-2024 Note HNO ID: [id number] Author: JUNE CORONEL APRN.ENVIRONMENTAL SERVICES SPECIALIST Service: ? Author Type: Nurse Practitioner Type: Progress Notes Filed: 08/15/2024 14:26 Note Text: This note was created using NoteWriter. Subjective Val Ruiz is a 23 year old female. HPI Patient complains of 1 week of cough congestion and sinus pain and pressure consistent with previous sinus infections. She also notes 3 days of purulent drainage from bilateral eyes. Patient notes that she is currently due March 17, 2025. Review of Systems HENT: Positive for congestion, sinus pressure and sinus pain. Eyes: Positive for discharge. Respiratory: Positive for cough. Objective BP 122/78 Pulse 80 Temp 36.3 ?C (97.3 ?F) (Tympanic) Resp 18 Wt 76.5 kg (168 lb 10.4 oz) LMP 06/10/2024 SpO2 98% BMI 34.06 kg/m? Physical Exam Vitals and nursing note reviewed. Constitutional: General: She is not in acute distress. Appearance: Normal appearance. She is not ill-appearing. HENT: Head: Normocephalic. Mouth/Throat: Mouth: Mucous membranes are moist. Eyes: General: Right eye: Discharge present. Left eye: Discharge present. Conjunctiva/sclera: Conjunctivae normal. Cardiovascular: Rate and Rhythm: Normal rate and regular rhythm. Pulmonary: Effort: Pulmonary effort is normal. Breath sounds: Normal breath sounds. Musculoskeletal: General: Normal range of motion. Cervical back: Normal range of motion. Skin: General: Skin is warm and dry. Neurological: General: No focal deficit present. Mental Status: She is alert. Psychiatric: Mood and Affect: Mood normal. Behavior: Behavior normal. Assessment and Plan ASSESSMENT/PLAN: 1. Bacterial sinusitis - ICD9: 473.9, 041.9, ICD10: J32.9, B96.89 (primary diagnosis) - Will begin treatment with as per antibiotic as written, see orders - Follow up in one week if symptoms persist or worsen. - - AMOXICILLIN 875 MG-POTASSIUM CLAVULANATE 125 MG TABLET 2. Bacterial conjunctivitis - ICD9: 372.39, 041.9, ICD10: H10.9 - see medication orders - course and contagiousness issues discussed, including hand washing. - Instructed to call if high fever, development of periorbital redness or swelling, eye pain, visual changes, concerns or if symptoms persist. - POLYMYXIN B SULFATE 10,000 UNIT-TRIMETHOPRIM 1 MG/ML EYE DROPS June Coronel APRN.ENVIRONMENTAL SERVICES SPECIALIST [facility] 08-15-2024 History of Present illness Narrative Formatting of this note might be differe nt from the original. This note was created using RightSignatureriter. Subjective Val Ruiz is a 23 year old female. HPI Patient complains of 1 week of cough congestion and sinus pain and pressure consistent with previous sinus infections. She also notes 3 days of purulent drainage from bilateral eyes. Patient notes that she is currently due March 17, 2025. Review of Systems HENT: Positive for congestion, sinus pressure and sinus pain. Eyes: Positive for discharge. Respiratory: Positive for cough. Objective BP 122/78 Pulse 80 Temp 36.3 C (97.3 F) (Tympanic) Resp 18 Wt 76.5 kg (168 lb 10.4 oz) LMP 06/10/2024 SpO2 98% BMI 34.06 kg/m Physical Exam Vitals and nursing note reviewed. Constitutional: General: She is not in acute distress. Appearance: Normal appearance. She is not ill-appearing. HENT: Head: Normocephalic. Mouth/Throat: Mouth: Mucous membranes are moist. Eyes: General: Right eye: Discharge present. Left eye: Discharge present. Conjunctiva/sclera: Conjunctivae normal. Cardiovascular: Rate and Rhythm: Normal rate and regular rhythm. Pulmonary: Effort: Pulmonary effort is normal. Breath sounds: Normal breath sounds. Musculoskeletal: General: Normal range of motion. Cervical back: Normal range of motion. Skin: General: Skin is warm and dry. Neurological: General: No focal deficit present. Mental Status: She is alert. Psychiatric: Mood and Affect: Mood normal. Behavior: Behavior normal. Assessment and Plan ASSESSMENT/PLAN: 1. Bacterial sinusitis - ICD9: 473.9, 041.9, ICD10: J32.9, B96.89 (primary diagnosis) - Will begin treatment with as per antibiotic as written, see orders - Follow up in one week if symptoms persist or worsen. - - AMOXICILLIN 875 MG-POTASSIUM CLAVULANATE 125 MG TABLET 2. Bacterial conjunctivitis - ICD9: 372.39, 041.9, ICD10: H10.9 - see medication orders - course and contagiousness issues discussed, including hand washing. - Instructed to call if high fever, development of periorbital redness or swelling, eye pain, visual changes, concerns or if symptoms persist. - POLYMYXIN B SULFATE 10,000 UNIT-TRIMETHOPRIM 1 MG/ML EYE DROPS June Coronel APRN.ENVIRONMENTAL SERVICES SPECIALIST documented in this encounter [facility] 08-10-2024 History of Present illness Narrative Formatting of this note might be differe nt from the original. Radiology Service Progress Note PATIENT NAME: Val Ruiz DATE OF SERVICE: August 10, 2024 TIME: 12:46 PM PATIENT IDENTITY VERIFICATION COMPLETED USING TWO (2) IDENTIFIERS: Name and Date of confirmed by patient verbally. FALL SCREENING: Has the patient had 2 falls in the last year or 1 fall with injury or currently using an Ambulatory Assistive Device (Walker, Cane, Wheelchair, Crutches, etc.)? No PATIENT GENDER DATA: Female. status: : Yes. Internal Quality Check OK. status: NO. PATIENT RELEVANT IMPLANT DATA REVIEWED: Yes PATIENT PRESENTS WITH AN IMPLANTABLE OR ATTACHED PATIENT SERVICES MANAGER: No RADIOLOGY DEPARTMENT: General X-ray: Exam(s) Completed: Chest X-Ray PERIPHERAL IV DATA: Not applicable SIGNED BY: RT Roshni(Vin) August 10, 2024 12:46 PM documented in this encounter [facility] 08-10-2024 Note HNO ID: [id number] Author: STEPHANIE KHOURY RT(R) Service: ? Author Type: Cork Cutter Type: Progress Notes Filed: 08/10/2024 12:47 Note Text: Radiology Service Progress Note PATIENT NAME: Val Ruiz DATE OF SERVICE: August 10, 2024 TIME: 12:46 PM PATIENT IDENTITY VERIFICATION COMPLETED USING TWO (2) IDENTIFIERS: Name and Date of confirmed by patient verbally. FALL SCREENING: Has the patient had 2 falls in the last year or 1 fall with injury or currently using an Ambulatory Assistive Device (Walker, Cane, Wheelchair, Crutches, etc.)? No PATIENT GENDER DATA: Female. status: : Yes. Internal Quality Check OK. status: NO. PATIENT RELEVANT IMPLANT DATA REVIEWED: Yes PATIENT PRESENTS WITH AN IMPLANTABLE OR ATTACHED PATIENT SERVICES MANAGER: No RADIOLOGY DEPARTMENT: General X-ray: Exam(s) Completed: Chest X-Ray PERIPHERAL IV DATA: Not applicable SIGNED BY: RT Roshni(R) August 10, 2024 12:46 PM [facility] 08-10-2024 Note HNO ID: [id number] Author: YONG MEDEROS APRN.ENVIRONMENTAL SERVICES SPECIALIST Service: ? Author Type: Nurse Practitioner Type: Progress Notes Filed: 08/10/2024 13:22 Note Text: Subjective HPI HPI Val Ruiz is a 23 year old female who presents today for CC of cough, congestion, sinus pressure. This started 3 days ago. Has tried otc medication for relief. Symptoms are worsened by nothing. Risk factors sick exposures at work. . .Patient presents with: Cough: Congestion, sinus pressure x 3 days PAST MEDICAL HISTORY Diagnosis Date Asthma Bipolar PAST SURGICAL HISTORY Procedure Laterality Date SECTION HX 07/08/2020 primary d/t Gestational diabetes- suspected LGA TONSILLECTOMY AND ADENOIDECTOMY 2006 ALLERGIES Cephalexin MEDICATIONS aspirin, enteric coated (ECOTRIN LOW STRENGTH) 81 mg EC tablet Take 1 tablet by mouth once daily. citalopram (CELEXA) 20 mg tablet Take 20 mg by mouth once daily. no115/iron/folic acid ( 19 ORAL) Take 1 tablet by mouth once daily. albuterol HFA (PROVENTIL HFA, VENTOLIN HFA) 90 mcg/actuation inhaler Inhale 2 Puffs as instructed every 4 hours as needed for wheezing/shortness of breath. QUEtiapine (SEROQUEL) 25 mg tablet (Patient not taking: Reported on 08/10/2024) FAMILY HISTORY Problem Relation Age of Onset No Known Problems Sister No Known Problems Brother Diabetes Maternal Grandfather Social History Tobacco Use Smoking status: Never Smokeless tobacco: Never Vaping Use Vaping status: Former Substance Use Topics Alcohol use: Not Currently Drug use: Never Review of Systems Constitutional: Negative for fever. HENT: Positive for congestion. Negative for ear pain, nosebleeds and sore throat. Respiratory: Positive for cough. Negative for shortness of breath and wheezing. Cardiovascular: Negative for chest pain. Musculoskeletal: Negative for neck pain. Skin: Negative for itching and rash. Objective Blood pressure 118/70, pulse 90, temperature 36.7 ?C (98.1 ?F), resp. rate 21, weight 78.4 kg (172 lb 13.5 oz), last menstrual period 06/10/2024, SpO2 96%. Physical Exam Constitutional: General: She is not in acute distress. Appearance: She is not toxic-appearing or diaphoretic. HENT: Head: Normocephalic and atraumatic. Right Ear: Hearing, tympanic membrane, ear canal and external ear normal. Left Ear: Hearing, tympanic membrane, ear canal and external ear normal. Nose: Nose normal. Mouth/Throat: Pharynx: Uvula midline. No pharyngeal swelling, oropharyngeal exudate, posterior oropharyngeal erythema or uvula swelling. Eyes: General: Lids are normal. No scleral icterus. Right eye: No discharge. Left eye: No discharge. Conjunctiva/sclera: Conjunctivae normal. Pupils: Pupils are equal, round, and reactive to light. Neck: Trachea: Trachea normal. Cardiovascular: Rate and Rhythm: Normal rate and regular rhythm. Heart sounds: Normal heart sounds. Pulmonary: Effort: Pulmonary effort is normal. Breath sounds: Normal breath sounds. Musculoskeletal: Cervical back: Normal range of motion and neck supple. Lymphadenopathy: Cervical: No cervical adenopathy. Right cervical: No superficial cervical adenopathy. Left cervical: No superficial cervical adenopathy. Skin: Findings: No rash. Neurological: Mental Status: She is alert and oriented to person, place, and time. ASSESSMENT/PLAN: 1. URI, acute - ICD9: 465.9, ICD10: J06.9 (primary diagnosis) - Discussed viral etiology and rationale for treatment. - Symptomatic treatment with prn analgesia - Supportive care with fluids and rest - Follow up in 3-5 days if symptoms persist or sooner if worsening of symptoms - FLUTICASONE PROPIONATE 50 MCG/ACTUATION NASAL SPRAY,SUSPENSION 2. Acute cough - ICD9: 786.2, ICD10: R05.1 - XR CHEST 2V FRONTAL/LAT IMPRESSION: No acute radiographic abnormality. Dictated by : MD Yong DOZIER, JOSE.[facility] 08-10-2024 History of Present illness Narrative Formatting of this note is different fro m the original. Subjective HPI HPI Val Ruiz is a 23 year old female who presents today for CC of cough, congestion, sinus pressure. This started 3 days ago. Has tried otc medication for relief. Symptoms are worsened by nothing. Risk factors sick exposures at work. . .Patient presents with: Cough: Congestion, sinus pressure x 3 days PAST MEDICAL HISTORY Diagnosis Date Asthma Bipolar PAST SURGICAL HISTORY Procedure Laterality Date SECTION HX 07/08/2020 primary d/t Gestational diabetes- suspected LGA TONSILLECTOMY & ADENOIDECTOMY <AGE 12 2005 ALLERGIES Cephalexin MEDICATIONS aspirin, enteric coated (ECOTRIN LOW STRENGTH) 81 mg EC tablet Take 1 tablet by mouth once daily. citalopram (CELEXA) 20 mg tablet Take 20 mg by mouth once daily. no115/iron/folic acid ( 19 ORAL) Take 1 tablet by mouth once daily. albuterol HFA (PROVENTIL HFA, VENTOLIN HFA) 90 mcg/actuation inhaler Inhale 2 Puffs as instructed every 4 hours as needed for wheezing/shortness of breath. QUEtiapine (SEROQUEL) 25 mg tablet (Patient not taking: Reported on 08/10/2024) FAMILY HISTORY Problem Relation Age of Onset No Known Problems Sister No Known Problems Brother Diabetes Maternal Grandfather Social History Tobacco Use Smoking status: Never Smokeless tobacco: Never Vaping Use Vaping status: Former Substance Use Topics Alcohol use: Not Currently Drug use: Never Review of Systems Constitutional: Negative for fever. HENT: Positive for congestion. Negative for ear pain, nosebleeds and sore throat. Respiratory: Positive for cough. Negative for shortness of breath and wheezing. Cardiovascular: Negative for chest pain. Musculoskeletal: Negative for neck pain. Skin: Negative for itching and rash. Objective Blood pressure 118/70, pulse 90, temperature 36.7 C (98.1 F), resp. rate 21, weight 78.4 kg (172 lb 13.5 oz), last menstrual period 06/10/2024, SpO2 96%. Physical Exam Constitutional: General: She is not in acute distress. Appearance: She is not toxic-appearing or diaphoretic. HENT: Head: Normocephalic and atraumatic. Right Ear: Hearing, tympanic membrane, ear canal and external ear normal. Left Ear: Hearing, tympanic membrane, ear canal and external ear normal. Nose: Nose normal. Mouth/Throat: Pharynx: Uvula midline. No pharyngeal swelling, oropharyngeal exudate, posterior oropharyngeal erythema or uvula swelling. Eyes: General: Lids are normal. No scleral icterus. Right eye: No discharge. Left eye: No discharge. Conjunctiva/sclera: Conjunctivae normal. Pupils: Pupils are equal, round, and reactive to light. Neck: Trachea: Trachea normal. Cardiovascular: Rate and Rhythm: Normal rate and regular rhythm. Heart sounds: Normal heart sounds. Pulmonary: Effort: Pulmonary effort is normal. Breath sounds: Normal breath sounds. Musculoskeletal: Cervical back: Normal range of motion and neck supple. Lymphadenopathy: Cervical: No cervical adenopathy. Right cervical: No superficial cervical adenopathy. Left cervical: No superficial cervical adenopathy. Skin: Findings: No rash. Neurological: Mental Status: She is alert and oriented to person, place, and time. ASSESSMENT/PLAN: 1. URI, acute - ICD9: 465.9, ICD10: J06.9 (primary diagnosis) - Discussed viral etiology and rationale for treatment. - Symptomatic treatment with prn analgesia - Supportive care with fluids and rest - Follow up in 3-5 days if symptoms persist or sooner if worsening of symptoms - FLUTICASONE PROPIONATE 50 MCG/ACTUATION NASAL SPRAY,SUSPENSION 2. Acute cough - ICD9: 786.2, ICD10: R05.1 - XR CHEST 2V FRONTAL/LAT IMPRESSION: No acute radiographic abnormality. Dictated by : MD Yong DOZIER APRN.ENVIRONMENTAL SERVICES SPECIALIST documented in this encounter [facility] 08-04-2024 Telephone encounter Note Formatting of this note might be differe nt from the original. 1st risk assessment form submitted 08/04/24 Chapito Ventura RN [facility] 08-04-2024 Miscellaneous Notes Formatting of this note might be differe nt from the original. 1st risk assessment form submitted 08/04/24 Chapito Ventura RN documented in this encounter [facility] 08-03-2024 History of Present illness Narrative Formatting of this note might be differe nt from the original. OB point of care ultrasound was performed. See imaging tab for details. Yamila Azar MA Adult Crossing Guard offered: Patient declines. INITIAL OB ASSESSMENT HPI: Val is a 23 year old White here to establish Obstetrical Care. Patient's last menstrual period was 06/10/2024. from OB Dating Form. was planned Complaints: No OB History T1 L1 SAB0 IAB0 Ectopic0 Multiple0 Live Births1 Previous history: Prior : Yes History of 4th degree laceration: no Perineal Laceration, 3rd or 4th degree: no History of shoulder dystocia: no History of Hypertensive disorders including pre-eclampsia or gestational hypertension: no History of gestational diabetes: yes Diabetes in : yes Patient's Risk Screening for delivery: Have you had a prior scott between 20w and 36w6d? No How many pregnancies have you had before? 1 Did you have a previous baby with a GBS Infection? No Please select all that apply for any prior : N/A MEDICAL/PSYCHOSOCIAL HISTORY: Severe bleeding with delivery Thyroid Disease Diabetes in No results found for: ABORHD BMI 34.74 kg/(m^2) Last Pap: never History of abnormal pap: no Prior treatment for cervical dysplasia: none. Last HPV: n/a History of STDs: N/A Partner History of STDs: None Did you have a partner with Herpes? No Tobacco use: No E-Cigarette/Vaping Use: No Caffeine use: Yes- 1 coffee per day Drug use: No Alcohol use: No Multivitamin with Folic acid: Yes Would refuse blood transfusion if medically necessary: No Social Needs: How often does this describe you? I don't have enough money to pay my bills: Never Within the past 12 months, have you worried that your food would run out before you had money to buy more? Never In the past 12 months, has lack of reliable transportation kept you from going to medical appointments or work, or from getting things needed for daily living? Never In the past 12 months, have you had any concerns about having a place to live, or about the condition or quality of your housing? Never Would you like more information on any of the following (please check all that apply)? Not interested Social History: Do you have any history of depression, anxiety, PTSD, or other mood problems? Yes Do you have a history of abuse or trauma that may impact your experience? No Are you currently employed? Yes Depression/Anxiety Screening: denies, admits to symptoms of depression. OB Depression and Anxiety Screening- This Encounter (since 08/02/2024) Over the past 2 weeks have you felt down, depressed, or hopeless? Positive - Further Testing Indicated Over the past two weeks, have you felt little interest or pleasure in doing things? Positive - Further Testing Indicated I have been able to laugh and see the funny side of things. Not quite so much now I have looked forward with enjoyment to things. Rather less than I used to I have blamed myself unnecessarily when things went wrong. Yes, most of the time I have been anxious or worried for no good reason. Yes, very often I have felt scared or panicky for no good reason. Yes, sometimes Things have been getting on top of me. Yes, sometimes I haven't been coping as well as usual I have been so unhappy that I have had difficulty sleeping. Not very often I have felt sad or miserable. Yes, quite often I have been so unhappy that I have been crying. Yes, quite often The thought of harming myself has occurred to me. Hardly ever [place] Depression Scale Total 18 Feeling nervous, anxious or on edge 3-Nearly every day Not being able to stop or control worrying 3-Nearly every day Anxiety Pre-Screening Total (If >/= 3 additional questions will be reviewed) 6 Worrying too much about different things 1-Several days Trouble relaxing 2-More than half the days Being so restless that it is hard to sit still 1-Several days Becoming easily annoyed or irritable 3-Nearly every day Feeling afraid, as if something awful might happen 1-Several days Anxiety (MARIBETH) Full Screening Total 14 Genetic Screening: Partner present: Yes Patient verbalized knowledge of partner family health history: No Do you or your partner have any personal or family history of defects not previously discussed: No Do you have history of a complicated by anomaly, genetic condition, or demise: No Preeclampsia Risk Screening: Screening for prevention of preeclampsia: High risk factors: None Moderate risk ractors: Obesity (body mass index greater than 30) OB Risk Screening: Completed, positive findings include: Patient answered 'Yes' to previous baby with a GBS Infection Marital Status: Partner: Name: Adonay Age: 24 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 no115/iron/folic acid ( 19 ORAL) Take 1 tablet by mouth once daily. albuterol HFA (PROVENTIL HFA, VENTOLIN HFA) 90 mcg/actuation inhaler Inhale 2 Puffs as instructed every 4 hours as needed for wheezing/shortness of breath. 8 g 0 QUEtiapine (SEROQUEL) 25 mg tablet aspirin, enteric coated (ECOTRIN LOW STRENGTH) 81 mg EC tablet Take 1 tablet by mouth once daily. 90 tablet 3 DULoxetine (CYMBALTA) 60 mg capsule Take 60 mg by mouth once daily. (Patient not taking: Reported on 07/24/2024) No current facility-administered medications for this visit. Allergies As of Date: 08/03/2024 Allergen Noted Reaction CEPHALEXIN 05/01/2022 Rash Fully Assessed 08/03/2024 Does patient have penicillin allergy: No REVIEW OF SYSTEMS: GENERAL: Negative for: Fever or Chills and Positive for: Fatigue HEENT: Negative for: Headache, Impaired Vision, Ringing in Ears, Nosebleeds NECK: Negative for: Swelling, Pain, Stiffness RESPIRATORY: Negative for: Cough, Shortness of breath, Wheezing and POSITIVE FOR ASTHMA GASTROINTESTINAL: Negative for: Heartburn, Constipation, Diarrhea, Blood in stool, Vomiting, Positive for: Constipation, and Positive for: Nausea and Vomiting MUSCULOSKELETAL: Negative for: Muscle or joint pain, stiffness, Joint swelling NEUROLOGIC/PSYCHIATRIC: Negative for: Weakness, Paralysis, Numbness, Tingling, Tremor, Anxiety, Depression, Memory loss Treatment for anxiety and depression/ taking Seroquil going to stop Celexa - just started Dr. Saldana- [facility]. Bipolar SKIN: Negative for: Rash, Itching GENITOURINARY: Negative for: vaginal itching, vaginal discharge, hematuria or dysuria SENSITIVE EXAM: The sensitive examination was discussed with the Patient or Patient's Authorized Bag Loader. As applicable, any other physician, advance practice provider, medical student, or other health professional student that will be observing or involved in the sensitive examination for educational or training purposes was discussed with the Patient or Authorized Bag Loader. The Patient or Authorized Bag Loader has agreed to proceed with the sensitive examination. (Sensitive examination includes inspection and/or palpation of the breasts, pelvis, prostate and anorectal regions). PHYSICAL EXAM: Ht 4' 11 (1.50m) Wt 172 lb (78.0kg) LMP 06/10/2024 BMI 34.72 kg/(m^2). GENERAL: pleasant in no apparent distress DERMATOLOGY: Normal and without lesions NECK: Supple and full range of motion CHEST: Normal inspiratory effort BREAST: soft, non-tender, symmetric, no dominant mass, normal nipple-areolar complex, and no lymphadenopathy ABDOMEN: soft, non-tender, and no masses NEURO: alert and oriented x3,exam grossly non-focal PELVIS: External genitalia normal without lesions. Perineal body intact. No vaginal or cervical lesions. Limited OB ultrasound exam: single intrauterine , positive cardiac activity, and crown-rump length 7.1 weeks ASSESSMENT: 23 year old at 7w5d wks gestational age PLAN: 1) Patient oriented to practice. Patient given new OB orientation folder. Discussed gestational weight gain guidelines. Discussed routine OB labs including STD/HIV. Discussed how to access Your guide to a health and the Technology Infusion Specialist. 2) Screening: Hemoglobin A1C: ordered Baby Aspirin: The patient has been counseled about the potential benefits of low dose aspirin in and our recommendation that this be offered to all patients, regardless of whether they meet the high risk criteria specified above. She Accepts Aneuploidy Screening: Discussed aneuploidy screening, nuchal translucency/first trimester early anatomy ultrasound and NIPT. The risks/benefits and limitations of NIPT/aneuploidy screening were reviewed including the potential for false negative and false positive results. The availability of genetic counseling was reviewed. Information on aneuploidy screening was provided. The patient is uncertain. She will call back if she wants to proceed with screening. Pt aware of timing. Myriad Carrier Screening: Discussed myriad carrier screening. We discussed the availability of professional-society guided carrier screening and reviewed the conditions screened and limitations of screening. The availability of genetic counseling was reviewed. Information on carrier screening was provided. The patient Declines 3) Patient offered option of Virtual Visits. Patient prefers in person visits. Follow up in 4 weeks or sooner prn. Kati Rolle APRN.CNM documented in this encounter [facility] 08-03-2024 Note HNO ID: [id number] Author: YAMILA AZAR MA Service: ? Author Type: Robotics Technologist Type: Progress Notes Filed: 08/03/2024 14:49 Note Text: OB point of care ultrasound was performed. See imaging tab for details. Yamila Azar MA [facility] 08-03-2024 Note HNO ID: [id number] Author: KATI ORLLE APRN.CNM Service: ? Author Type: Continuous Improvement Facilitator Type: Progress Notes Filed: 08/03/2024 14:49 Note Text: Adult Crossing Guard offered: Patient declines. INITIAL OB ASSESSMENT HPI: Val is a 23 year old White here to establish Obstetrical Care. Patient's last menstrual period was 06/10/2024. from OB Dating Form. was planned Complaints: No OB History T1 L1 SAB0 IAB0 Ectopic0 Multiple0 Live Births1 Previous history: Prior : Yes History of 4th degree laceration: no Perineal Laceration, 3rd or 4th degree: no History of shoulder dystocia: no History of Hypertensive disorders including pre-eclampsia or gestational hypertension: no History of gestational diabetes: yes Diabetes in : yes Patient's Risk Screening for delivery: Have you had a prior scott between 20w and 36w6d? No How many pregnancies have you had before? 1 Did you have a previous baby with a GBS Infection? No Please select all that apply for any prior : N/A MEDICAL/PSYCHOSOCIAL HISTORY: Severe bleeding with delivery Thyroid Disease Diabetes in No results found for: ABORHD BMI 34.74 kg/(m2) Last Pap: never History of abnormal pap: no Prior treatment for cervical dysplasia: none. Last HPV: n/a History of STDs: N/A Partner History of STDs: None Did you have a partner with Herpes? No Tobacco use: No E-Cigarette/Vaping Use: No Caffeine use: Yes- 1 coffee per day Drug use: No Alcohol use: No Multivitamin with Folic acid: Yes Would refuse blood transfusion if medically necessary: No Social Needs: How often does this describe you? I don't have enough money to pay my bills: Never Within the past 12 months, have you worried that your food would run out before you had money to buy more? Never In the past 12 months, has lack of reliable transportation kept you from going to medical appointments or work, or from getting things needed for daily living? Never In the past 12 months, have you had any concerns about having a place to live, or about the condition or quality of your housing? Never Would you like more information on any of the following (please check all that apply)? Not interested Social History: Do you have any history of depression, anxiety, PTSD, or other mood problems? Yes Do you have a history of abuse or trauma that may impact your experience? No Are you currently employed? Yes Depression/Anxiety Screening: denies, admits to symptoms of depression. OB Depression and Anxiety Screening- This Encounter (since 08/02/2024) Over the past 2 weeks have you felt down, depressed, or hopeless? Positive - Further Testing Indicated Over the past two weeks, have you felt little interest or pleasure in doing things?? Positive - Further Testing Indicated I have been able to laugh and see the funny side of things. Not quite so much now I have looked forward with enjoyment to things. Rather less than I used to I have blamed myself unnecessarily when things went wrong. Yes, most of the time I have been anxious or worried for no good reason. Yes, very often I have felt scared or panicky for no good reason. Yes, sometimes Things have been getting on top of me. Yes, sometimes I haven't been coping as well as usual I have been so unhappy that I have had difficulty sleeping. Not very often I have felt sad or miserable. Yes, quite often I have been so unhappy that I have been crying. Yes, quite often The thought of harming myself has occurred to me. Hardly ever [place] Depression Scale Total 18 Feeling nervous, anxious or on edge 3-Nearly every day Not being able to stop or control worrying 3-Nearly every day Anxiety Pre-Screening Total (If >/= 3 additional questions will be reviewed) 6 Worrying too much about different things 1-Several days Trouble relaxing 2-More than half the days Being so restless that it is hard to sit still 1-Several days Becoming easily annoyed or irritable 3-Nearly every day Feeling afraid, as if something awful might happen 1-Several days Anxiety (MARIBETH) Full Screening Total 14 Genetic Screening: Partner present: Yes Patient verbalized knowledge of partner family health history: No Do you or your partner have any personal or family history of defects not previously discussed: No Do you have history of a complicated by anomaly, genetic condition, or demise: No Preeclampsia Risk Screening: Screening for prevention of preeclampsia: High risk factors: None Moderate risk ractors: Obesity (body mass index greater than 30) OB Risk Screening: Completed, positive findings include: Patient answered 'Yes' to previous baby with a GBS Infection Marital Status: Partner: Name: Adonay Age: 23 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 [facility] 08-03-2024 Instructions Tracey Godoy LPN - 08/03/2024 12:42 PM EST Please select the following link to access the [facility] Your Guide to a Healthy . [email or web address] documented in this encounter [facility] 07-24-2024 Note HNO ID: [id number] Author: ARLEEN ARCOS APRN.ENVIRONMENTAL SERVICES SPECIALIST Service: ? Author Type: Nurse Practitioner Type: Progress Notes Filed: 07/24/2024 11:30 Note Text: CC: Patient presents with: Cough: Chest congestion, nasal congestion, fever, sinus pressure, sore throat x 1 week HPI: Val Ruiz is a 23 year old female who presents to the office with complaint of chest congestion, head congestion, cough, nonproductive, and sinus symptoms for a week. Symptoms are worsening Associated symptoms includes facial pain/pressure. Denies fever, nausea, shortness of breath or pain in throat when swallowing vomiting , and diarrhea. Treatments tried include nothing so far. with no relief of symptoms. Sick contacts: unknown. History of asthma, frequent episodes of bronchitis, chronic bronchitis, bronchiectasis or COPD: No Smoker: No Seasonal/environmental allergies: No The ROS is otherwise negative. The patient's pmh, medications, allergies, and past visits are reviewed. PHYSICAL EXAM: BP 112/58 Pulse 84 Temp 36.3 ?C (97.3 ?F) Resp 22 Wt 78.9 kg (173 lb 15.1 oz) LMP 06/15/2024 (Exact Date) SpO2 100% General appearance: alert, cooperative, pleasant, in no acute distress Head: Normocephalic Eyes: EOM's intact, conjunctiva pink and moist, no icterus, sclera white, non-injected Ears: Right ear: External ear/canal- Normal, TM - clear with good landmarks. Left ear: External ear/canal- Normal, TM - clear with good landmarks Oropharynx:moist without lesions, No erythema, exudates or tonsillar hypertrophy. Heart: Negative. RRR without obvious murmur, gallop, or rubs. No ectopy. Lungs: clear to auscultation, without rales or wheeze, good air exchange PAST MEDICAL HISTORY Diagnosis Date Bipolar PAST SURGICAL HISTORY Procedure Laterality Date SECTION HX TONSILLECTOMY AND ADENOIDECTOMY ALLERGIES Cephalexin MEDICATIONS no115/iron/folic acid ( 19 ORAL) Take 1 tablet by mouth once daily. albuterol HFA (PROVENTIL HFA, VENTOLIN HFA) 90 mcg/actuation inhaler Inhale 2 Puffs as instructed every 4 hours as needed for wheezing/shortness of breath. QUEtiapine (SEROQUEL) 25 mg tablet amoxicillin-clavulanate potassium (AUGMENTIN) 875-125 mg per tablet Take 1 tablet by mouth two times a day for 7 days. DULoxetine (CYMBALTA) 60 mg capsule Take 60 mg by mouth once daily. (Patient not taking: Reported on 07/24/2024) No family history on file. Social History Tobacco Use Smoking status: Never Smokeless tobacco: Never Vaping Use Vaping status: Former Substance Use Topics Alcohol use: Not Currently Drug use: Not Currently ASSESSMENT/PLAN: 1. Rhinosinusitis - ICD9: 473.9, ICD10: J32.9 - AMOXICILLIN 875 MG-POTASSIUM CLAVULANATE 125 MG TABLET Prescription instructions reviewed with patient as applicable. Potential red flag symptoms discussed with the patient. Reviewed appropriate action plan to take if red flag symptoms occur. Patient agreeable to treatment plan. Arleen Arcos APRN.[facility] 07-24-2024 History of Present illness Narrative Formatting of this note is different fro m the original. CC: Patient presents with: Cough: Chest congestion, nasal congestion, fever, sinus pressure, sore throat x 1 week HPI: Val Ruiz is a 23 year old female who presents to the office with complaint of chest congestion, head congestion, cough, nonproductive, and sinus symptoms for a week. Symptoms are worsening Associated symptoms includes facial pain/pressure. Denies fever, nausea, shortness of breath or pain in throat when swallowing vomiting , and diarrhea. Treatments tried include nothing so far. with no relief of symptoms. Sick contacts: unknown. History of asthma, frequent episodes of bronchitis, chronic bronchitis, bronchiectasis or COPD: No Smoker: No Seasonal/environmental allergies: No The ROS is otherwise negative. The patient's pmh, medications, allergies, and past visits are reviewed. PHYSICAL EXAM: BP 112/58 Pulse 84 Temp 36.3 C (97.3 F) Resp 22 Wt 78.9 kg (173 lb 15.1 oz) LMP 06/15/2024 (Exact Date) SpO2 100% General appearance: alert, cooperative, pleasant, in no acute distress Head: Normocephalic Eyes: EOM's intact, conjunctiva pink and moist, no icterus, sclera white, non-injected Ears: Right ear: External ear/canal- Normal, TM - clear with good landmarks. Left ear: External ear/canal- Normal, TM - clear with good landmarks Oropharynx:moist without lesions, No erythema, exudates or tonsillar hypertrophy. Heart: Negative. RRR without obvious murmur, gallop, or rubs. No ectopy. Lungs: clear to auscultation, without rales or wheeze, good air exchange PAST MEDICAL HISTORY Diagnosis Date Bipolar PAST SURGICAL HISTORY Procedure Laterality Date SECTION HX TONSILLECTOMY & ADENOIDECTOMY <AGE 12 ALLERGIES Cephalexin MEDICATIONS no115/iron/folic acid ( 19 ORAL) Take 1 tablet by mouth once daily. albuterol HFA (PROVENTIL HFA, VENTOLIN HFA) 90 mcg/actuation inhaler Inhale 2 Puffs as instructed every 4 hours as needed for wheezing/shortness of breath. QUEtiapine (SEROQUEL) 25 mg tablet amoxicillin-clavulanate potassium (AUGMENTIN) 875-125 mg per tablet Take 1 tablet by mouth two times a day for 7 days. DULoxetine (CYMBALTA) 60 mg capsule Take 60 mg by mouth once daily. (Patient not taking: Reported on 07/24/2024) No family history on file. Social History Tobacco Use Smoking status: Never Smokeless tobacco: Never Vaping Use Vaping status: Former Substance Use Topics Alcohol use: Not Currently Drug use: Not Currently ASSESSMENT/PLAN: 1. Rhinosinusitis - ICD9: 473.9, ICD10: J32.9 - AMOXICILLIN 875 MG-POTASSIUM CLAVULANATE 125 MG TABLET Prescription instructions reviewed with patient as applicable. Potential red flag symptoms discussed with the patient. Reviewed appropriate action plan to take if red flag symptoms occur. Patient agreeable to treatment plan. Arleen Arcos APRN.ENVIRONMENTAL SERVICES SPECIALIST documented in this encounter [facility] 07-11-2024 Instructions Alexia Enriquez - 07/11/2024 11:33 AM EDT ASSESSMENT/PLAN: 1. Missed period - ICD9: 626.4, ICD10: N92.6 (primary diagnosis) POSITIVE URINE HCG RESULT 2. Encounter for confirmation of test result with physical examination - ICD9: V72.40, ICD10: Z32.00 Discussed plan of care with patient. Patient advised to notify Dr. Sanders with [facility], the provider that prescribes her medications for depression and anxiety. Patient advised that she will need to wean off some of her medications due to risks during . Patient advised to schedule and appointment with an NEEDLE BAR M[facility] provider. Patient asks about mild uterine cramping and if this is normal. Patient advised that some uterine cramping may be normal post uterine implantation, advised on signs and symptoms to monitor for and when to seek emergency care. All patient's questions answered. Patient agreeable with plan and verbalizes understanding. Alexia Mina, Student CHILD ADOLESCENT CARE documented in this encounter [facility] 07-11-2024 Note HNO ID: [id number] Author: SHU GOMEZ APRN.ENVIRONMENTAL SERVICES SPECIALIST Service: ? Author Type: Nurse Practitioner Type: Progress Notes Filed: 07/11/2024 12:21 Note Text: Subjective Val Ruiz is a 23 year old female who presents with a chief concern for confirmation. HPI Patient states she wants confirmation that she is . She reports that she takes medications for her depression and anxiety and will need to stop taking those meds. She took 2 tests at home which were positive. Her period is 4 days late. Patient has no other concerns at this time. Review of Systems Constitutional: Negative for fever and malaise/fatigue. HENT: Negative. Eyes: Negative. Respiratory: Negative. Cardiovascular: Negative. Gastrointestinal: Negative for abdominal pain, nausea and vomiting. Genitourinary: Negative. Musculoskeletal: Negative. Skin: Negative. Neurological: Negative. Psychiatric/Behavioral: Negative. PAST MEDICAL HISTORY Diagnosis Date - Bipolar PAST SURGICAL HISTORY Procedure Laterality Date - SECTION HX - TONSILLECTOMY AND ADENOIDECTOMY ALLERGIES Cephalexin MEDICATIONS - DULoxetine (CYMBALTA) 60 mg capsule Take 60 mg by mouth once daily. - albuterol HFA (PROVENTIL HFA, VENTOLIN HFA) 90 mcg/actuation inhaler Inhale 2 Puffs as instructed every 4 hours as needed for wheezing/shortness of breath. - MUCUS RELIEF ER 600 mg 12 hr tablet TAKE 1 TABLET BY MOUTH TWICE DAILY NEEDED FOR CONGESTION - QUEtiapine (SEROQUEL) 25 mg tablet - fluticasone (FLONASE ALLERGY RELIEF) 50 mcg/actuation nasal spray Use 1 [place] in each nostril once daily. (Patient not taking: Reported on 06/19/2024) - busPIRone (BUSPAR) 10 mg tablet TAKE 1 TABLET BY MOUTH THREE TIMES DAILY FOR ANXIETY (Patient not taking: Reported on 03/23/2024) - lamoTRIgine (LAMICTAL) 100 mg tablet (Patient not taking: Reported on 03/23/2024) No family history on file. Social History Tobacco Use - Smoking status: Never - Smokeless tobacco: Never Vaping Use - Vaping status: Former Substance Use Topics - Alcohol use: Not Currently - Drug use: Not Currently BP 110/72 Pulse 80 Temp 36.5 ?C (97.7 ?F) Resp 21 Wt 76.4 kg (168 lb 6.9 oz) LMP 06/15/2024 (Exact Date) SpO2 100% Objective Physical Exam Vitals and nursing note reviewed. Constitutional: Appearance: Normal appearance. HENT: Head: Normocephalic. Nose: Nose normal. Cardiovascular: Rate and Rhythm: Normal rate and regular rhythm. Pulses: Normal pulses. Heart sounds: Normal heart sounds. Pulmonary: Effort: Pulmonary effort is normal. Breath sounds: Normal breath sounds. Abdominal: General: There is no distension. Palpations: Abdomen is soft. Tenderness: There is no abdominal tenderness. Comments: Patient reports mild uterine cramping. Denies any vaginal bleeding, back pain, or abdominal pain. Musculoskeletal: General: Normal range of motion. Skin: General: Skin is warm. Neurological: General: No focal deficit present. Mental Status: She is alert. Psychiatric: Mood and Affect: Mood normal. Behavior: Behavior normal. ASSESSMENT/PLAN: 1. Missed period - ICD9: 626.4, ICD10: N92.6 (primary diagnosis) POSITIVE URINE HCG RESULT 2. Encounter for confirmation of test result with physical examination - ICD9: V72.40, ICD10: Z32.00 Discussed plan of care with patient. Patient advised to notify Dr. Sanders with [facility], the provider that prescribes her medications for depression and anxiety. Patient advised that she will need to wean off some of her medications due to risks during . Patient advised to schedule and appointment with an NEED[facility] provider. Patient asks about mild uterine cramping and if this is normal. Patient advised that some uterine cramping may be normal post uterine implantation, advised on signs and symptoms to monitor for and when to seek emergency care. All patient's questions answered. Patient agreeable with plan and verbalizes understanding. Alexia Enriquez, Student CHILD ADOLESCENT CARE TEACHING PROVIDER (Physician/PA/ADVISORY SOFTWARE ENGINEER) NOTE OF PERSONAL INVOLVEMENT IN CARE: I have personally seen and examined the patient and performed the medical decision-making components. I have reviewed the Advanced Practice Registered Nurse (ADVISORY SOFTWARE ENGINEER) Student's documentation and verified the findings in the note as written. Any additions or changes are noted in bold/italics. Signature: Shu Gomez Date: 07/11/2024 Time: 12:19 PM [facility] 07-11-2024 History of Present illness Narrative Formatting of this note is different fro m the original. Subjective Val Ruiz is a 23 year old female who presents with a chief concern for confirmation. HPI Patient states she wants confirmation that she is . She reports that she takes medications for her depression and anxiety and will need to stop taking those meds. She took 2 tests at home which were positive. Her period is 4 days late. Patient has no other concerns at this time. Review of Systems Constitutional: Negative for fever and malaise/fatigue. HENT: Negative. Eyes: Negative. Respiratory: Negative. Cardiovascular: Negative. Gastrointestinal: Negative for abdominal pain, nausea and vomiting. Genitourinary: Negative. Musculoskeletal: Negative. Skin: Negative. Neurological: Negative. Psychiatric/Behavioral: Negative. PAST MEDICAL HISTORY Diagnosis Date Bipolar PAST SURGICAL HISTORY Procedure Laterality Date SECTION HX TONSILLECTOMY & ADENOIDECTOMY <AGE 12 ALLERGIES Cephalexin MEDICATIONS DULoxetine (CYMBALTA) 60 mg capsule Take 60 mg by mouth once daily. albuterol HFA (PROVENTIL HFA, VENTOLIN HFA) 90 mcg/actuation inhaler Inhale 2 Puffs as instructed every 4 hours as needed for wheezing/shortness of breath. MUCUS RELIEF ER 600 mg 12 hr tablet TAKE 1 TABLET BY MOUTH TWICE DAILY NEEDED FOR CONGESTION QUEtiapine (SEROQUEL) 25 mg tablet fluticasone (FLONASE ALLERGY RELIEF) 50 mcg/actuation nasal spray Use 1 [place] in each nostril once daily. (Patient not taking: Reported on 06/19/2024) busPIRone (BUSPAR) 10 mg tablet TAKE 1 TABLET BY MOUTH THREE TIMES DAILY FOR ANXIETY (Patient not taking: Reported on 03/23/2024) lamoTRIgine (LAMICTAL) 100 mg tablet (Patient not taking: Reported on 03/23/2024) No family history on file. Social History Tobacco Use Smoking status: Never Smokeless tobacco: Never Vaping Use Vaping status: Former Substance Use Topics Alcohol use: Not Currently Drug use: Not Currently BP 110/72 Pulse 80 Temp 36.5 C (97.7 F) Resp 21 Wt 76.4 kg (168 lb 6.9 oz) LMP 06/15/2024 (Exact Date) SpO2 100% Objective Physical Exam Vitals and nursing note reviewed. Constitutional: Appearance: Normal appearance. HENT: Head: Normocephalic. Nose: Nose normal. Cardiovascular: Rate and Rhythm: Normal rate and regular rhythm. Pulses: Normal pulses. Heart sounds: Normal heart sounds. Pulmonary: Effort: Pulmonary effort is normal. Breath sounds: Normal breath sounds. Abdominal: General: There is no distension. Palpations: Abdomen is soft. Tenderness: There is no abdominal tenderness. Comments: Patient reports mild uterine cramping. Denies any vaginal bleeding, back pain, or abdominal pain. Musculoskeletal: General: Normal range of motion. Skin: General: Skin is warm. Neurological: General: No focal deficit present. Mental Status: She is alert. Psychiatric: Mood and Affect: Mood normal. Behavior: Behavior normal. ASSESSMENT/PLAN: 1. Missed period - ICD9: 626.4, ICD10: N92.6 (primary diagnosis) POSITIVE URINE HCG RESULT 2. Encounter for confirmation of test result with physical examination - ICD9: V72.40, ICD10: Z32.00 Discussed plan of care with patient. Patient advised to notify Dr. Sanders with [facility], the provider that prescribes her medications for depression and anxiety. Patient advised that she will need to wean off some of her medications due to risks during . Patient advised to schedule and appointment with an NEEDLE [facility] M[facility] provider. Patient asks about mild uterine cramping and if this is normal. Patient advised that some uterine cramping may be normal post uterine implantation, advised on signs and symptoms to monitor for and when to seek emergency care. All patient's questions answered. Patient agreeable with plan and verbalizes understanding. Alexia Enriquez, Student CHILD ADOLESCENT CARE TEACHING PROVIDER (Physician/PA/ADVISORY SOFTWARE ENGINEER) NOTE OF PERSONAL INVOLVEMENT IN CARE: I have personally seen and examined the patient and performed the medical decision-making components. I have reviewed the Advanced Practice Registered Nurse (ADVISORY SOFTWARE ENGINEER) Student's documentation and verified the findings in the note as written. Any additions or changes are noted in bold/italics. Signature: Shu Gomez Date: 07/11/2024 Time: 12:19 PM documented in this encounter [facility] 06-19-2024 History of Present illness Narrative Formatting of this note might be differe nt from the original. Radiology Service Progress Note PATIENT NAME: Val Ruiz DATE OF SERVICE: June 19, 2024 TIME: 11:12 AM PATIENT IDENTITY VERIFICATION COMPLETED USING TWO (2) IDENTIFIERS: Name and Date of confirmed by patient verbally. FALL SCREENING: Has the patient had 2 falls in the last year or 1 fall with injury or currently using an Ambulatory Assistive Device (Walker, Cane, Wheelchair, Crutches, etc.)? No PATIENT GENDER DATA: Female. status: : No status: NO. PATIENT RELEVANT IMPLANT DATA REVIEWED: Not Applicable PATIENT PRESENTS WITH AN IMPLANTABLE OR ATTACHED PATIENT SERVICES MANAGER: No RADIOLOGY DEPARTMENT: General X-ray: Exam(s) Completed: Chest X-Ray PERIPHERAL IV DATA: Not applicable SIGNED BY: RT Jaclyn(Vin) June 19, 2024 11:12 AM documented in this encounter [facility] 06-19-2024 Note HNO ID: [id number] Author: SHARI NOBLE RT (R) Service: Radiology Author Type: Technologist Type: Progress Notes Filed: 06/19/2024 11:22 Note Text: Radiology Service Progress Note PATIENT NAME: Val Ruiz DATE OF SERVICE: June 19, 2024 TIME: 11:12 AM PATIENT IDENTITY VERIFICATION COMPLETED USING TWO (2) IDENTIFIERS: Name and Date of confirmed by patient verbally. FALL SCREENING: Has the patient had 2 falls in the last year or 1 fall with injury or currently using an Ambulatory Assistive Device (Walker, Cane, Wheelchair, Crutches, etc.)? No PATIENT GENDER DATA: Female. status: : No status: NO. PATIENT RELEVANT IMPLANT DATA REVIEWED: Not Applicable PATIENT PRESENTS WITH AN IMPLANTABLE OR ATTACHED PATIENT SERVICES MANAGER: No RADIOLOGY DEPARTMENT: General X-ray: Exam(s) Completed: Chest X-Ray PERIPHERAL IV DATA: Not applicable SIGNED BY: RT Jaclyn(Vin) June 19, 2024 11:12 AM [facility] 06-19-2024 Note HNO ID: [id number] Author: ARLEEN ARCOS APRN.ENVIRONMENTAL SERVICES SPECIALIST Service: ? Author Type: Nurse Practitioner Type: Progress Notes Filed: 06/19/2024 11:35 Note Text: CC: Patient presents with: Cough: Chest congestion, chest tightness in chest Fever: Headache, bodyaches x 2 days HPI: Val Ruiz is a 23 year old female who presents to the office with complaint of chest congestion, cough, productive, and fever for a few days. Symptoms are staying the same. Associated symptoms includes headache and body aches. Denies nausea, vomiting , and diarrhea. Treatments tried include nothing so far. with no relief of symptoms. Sick contacts: unknown. History of asthma, frequent episodes of bronchitis, chronic bronchitis, bronchiectasis or COPD: No Smoker: No Seasonal/environmental allergies: No The ROS is otherwise negative. The patient's pmh, medications, allergies, and past visits are reviewed. PHYSICAL EXAM: BP 109/77 Pulse 99 Temp 36.5 ?C (97.7 ?F) Resp 18 Wt 76 kg (167 lb 8.8 oz) LMP 06/15/2024 (Exact Date) SpO2 99% General appearance: alert, cooperative, pleasant, in no acute distress Head: Normocephalic Eyes: EOM's intact, conjunctiva pink and moist, no icterus, sclera white, non-injected Ears: Right ear: External ear/canal- Normal, TM - clear with good landmarks. Left ear: External ear/canal- Normal, TM - clear with good landmarks Oropharynx:moist without lesions, No erythema, exudates or tonsillar hypertrophy. Uvula midline Neck:supple and no adenopathy Heart: Negative. RRR without obvious murmur, gallop, or rubs. No ectopy. Lungs: clear to auscultation, without rales or wheeze, good air exchange Abdomen: soft non tended PAST MEDICAL HISTORY Diagnosis Date Bipolar PAST SURGICAL HISTORY Procedure Laterality Date SECTION HX TONSILLECTOMY AND ADENOIDECTOMY ALLERGIES Cephalexin MEDICATIONS DULoxetine (CYMBALTA) 60 mg capsule Take 60 mg by mouth once daily. albuterol HFA (PROVENTIL HFA, VENTOLIN HFA) 90 mcg/actuation inhaler Inhale 2 Puffs as instructed every 4 hours as needed for wheezing/shortness of breath. MUCUS RELIEF ER 600 mg 12 hr tablet TAKE 1 TABLET BY MOUTH TWICE DAILY NEEDED FOR CONGESTION QUEtiapine (SEROQUEL) 25 mg tablet fluticasone (FLONASE ALLERGY RELIEF) 50 mcg/actuation nasal spray Use 1 [place] in each nostril once daily. (Patient not taking: Reported on 06/19/2024) busPIRone (BUSPAR) 10 mg tablet TAKE 1 TABLET BY MOUTH THREE TIMES DAILY FOR ANXIETY (Patient not taking: Reported on 03/23/2024) lamoTRIgine (LAMICTAL) 100 mg tablet (Patient not taking: Reported on 03/23/2024) No family history on file. Social History Tobacco Use Smoking status: Never Smokeless tobacco: Never Vaping Use Vaping status: Former Substance Use Topics Alcohol use: Not Currently Drug use: Not Currently ASSESSMENT/PLAN: 1. Acute cough - ICD9: 786.2, ICD10: R05.1 (primary diagnosis) - XR CHEST 2V FRONTAL/LAT * * * * Physician Interpretation * * * * EXAMINATION: CHEST RADIOGRAPH (2 VIEW FRONTAL AND LATERAL) CLINICAL HISTORY: Acute cough MQ: XC2_6 EXAM DATE/TIME: 06/19/2024 11:21 AM COMPARISON: No relevant prior studies available. RESULT: Lines, tubes, and devices: None. Lungs and pleura: No consolidation. No lung mass. No pleural effusion. No pneumothorax. Cardiomediastinal silhouette: Normal cardiomediastinal silhouette. Bones and soft tissues: Unremarkable. IMPRESSION IMPRESSION: No acute radiographic abnormality. Pearl Maker: MEDHAT Transcribe Date/Time: Jun 19 2024 11:31A Dictated by : CINDY WILSON MD - BENZONATATE 100 MG CAPSULE 2. URI, acute - ICD9: 465.9, ICD10: J06.9 - COVID AND INFLUENZA A/B AND RSV PCR, ROUTINE Believed to be viral at this time. Prescription instructions reviewed with patient as applicable. Potential red flag symptoms discussed with the patient. Reviewed appropriate action plan to take if red flag symptoms occur. Patient agreeable to treatment plan. Arleen Arcos APRN.[facility] 06-19-2024 History of Present illness Narrative Formatting of this note is different fro m the original. CC: Patient presents with: Cough: Chest congestion, chest tightness in chest Fever: Headache, bodyaches x 2 days HPI: Val Ruiz is a 23 year old female who presents to the office with complaint of chest congestion, cough, productive, and fever for a few days. Symptoms are staying the same. Associated symptoms includes headache and body aches. Denies nausea, vomiting , and diarrhea. Treatments tried include nothing so far. with no relief of symptoms. Sick contacts: unknown. History of asthma, frequent episodes of bronchitis, chronic bronchitis, bronchiectasis or COPD: No Smoker: No Seasonal/environmental allergies: No The ROS is otherwise negative. The patient's pmh, medications, allergies, and past visits are reviewed. PHYSICAL EXAM: BP 109/77 Pulse 99 Temp 36.5 C (97.7 F) Resp 18 Wt 76 kg (167 lb 8.8 oz) LMP 06/15/2024 (Exact Date) SpO2 99% General appearance: alert, cooperative, pleasant, in no acute distress Head: Normocephalic Eyes: EOM's intact, conjunctiva pink and moist, no icterus, sclera white, non-injected Ears: Right ear: External ear/canal- Normal, TM - clear with good landmarks. Left ear: External ear/canal- Normal, TM - clear with good landmarks Oropharynx:moist without lesions, No erythema, exudates or tonsillar hypertrophy. Uvula midline Neck:supple and no adenopathy Heart: Negative. RRR without obvious murmur, gallop, or rubs. No ectopy. Lungs: clear to auscultation, without rales or wheeze, good air exchange Abdomen: soft non tended PAST MEDICAL HISTORY Diagnosis Date Bipolar PAST SURGICAL HISTORY Procedure Laterality Date SECTION HX TONSILLECTOMY & ADENOIDECTOMY <AGE 11 ALLERGIES Cephalexin MEDICATIONS DULoxetine (CYMBALTA) 60 mg capsule Take 60 mg by mouth once daily. albuterol HFA (PROVENTIL HFA, VENTOLIN HFA) 90 mcg/actuation inhaler Inhale 2 Puffs as instructed every 4 hours as needed for wheezing/shortness of breath. MUCUS RELIEF ER 600 mg 12 hr tablet TAKE 1 TABLET BY MOUTH TWICE DAILY NEEDED FOR CONGESTION QUEtiapine (SEROQUEL) 25 mg tablet fluticasone (FLONASE ALLERGY RELIEF) 50 mcg/actuation nasal spray Use 1 [place] in each nostril once daily. (Patient not taking: Reported on 06/19/2024) busPIRone (BUSPAR) 10 mg tablet TAKE 1 TABLET BY MOUTH THREE TIMES DAILY FOR ANXIETY (Patient not taking: Reported on 03/23/2024) lamoTRIgine (LAMICTAL) 100 mg tablet (Patient not taking: Reported on 03/23/2024) No family history on file. Social History Tobacco Use Smoking status: Never Smokeless tobacco: Never Vaping Use Vaping status: Former Substance Use Topics Alcohol use: Not Currently Drug use: Not Currently ASSESSMENT/PLAN: 1. Acute cough - ICD9: 786.2, ICD10: R05.1 (primary diagnosis) - XR CHEST 2V FRONTAL/LAT * * * * Physician Interpretation * * * * EXAMINATION: CHEST RADIOGRAPH (2 VIEW FRONTAL & LATERAL) CLINICAL HISTORY: Acute cough MQ: XC2_6 EXAM DATE/TIME: 06/19/2024 11:21 AM COMPARISON: No relevant prior studies available. RESULT: Lines, tubes, and devices: None. Lungs and pleura: No consolidation. No lung mass. No pleural effusion. No pneumothorax. Cardiomediastinal silhouette: Normal cardiomediastinal silhouette. Bones and soft tissues: Unremarkable. IMPRESSION IMPRESSION: No acute radiographic abnormality. Pearl Maker: MEDHAT Transcribe Date/Time: Jun 19 2024 11:31A Dictated by : CINDY WILSON MD - BENZONATATE 100 MG CAPSULE 2. URI, acute - ICD9: 465.9, ICD10: J06.9 - COVID & INFLUENZA A/B & RSV PCR, ROUTINE Believed to be viral at this time. Prescription instructions reviewed with patient as applicable. Potential red flag symptoms discussed with the patient. Reviewed appropriate action plan to take if red flag symptoms occur. Patient agreeable to treatment plan. Arleen Arcos APRN.ENVIRONMENTAL SERVICES SPECIALIST documented in this encounter [facility] 05-17-2024 Note HNO ID: [id number] Author: ARIELLE ARIAS APRN.CNP Service: ? Author Type: Nurse Practitioner Type: Progress Notes Filed: 05/17/2024 14:23 Note Text: May 17, 2024 HPI: Val Ruiz is a 23 year old female who presents today for cough, sinus congestion, drainage and pressure with ear fullness x 2 weeks. Otc: mucinex, tylenol cold and flu PAST MEDICAL HISTORY No date: Bipolar PAST SURGICAL HISTORY No date: SECTION HX No date: TONSILLECTOMY AND ADENOIDECTOMY History reviewed. No pertinent family history. Social History Tobacco Use Smoking status: Never Smokeless tobacco: Never Vaping Use Vaping status: Former Substance Use Topics Alcohol use: Not Currently Drug use: Not Currently ALLERGIES Allergen Reactions Cephalexin Rash Immunization History Administered Date(s) Administered COVID-19 vaccine ([facility] E[facility]) 02/22/2021 Current Medications: MUCUS RELIEF ER 600 mg 12 hr tablet TAKE 1 TABLET BY MOUTH TWICE DAILY NEEDED FOR CONGESTION QUEtiapine (SEROQUEL) 25 mg tablet venlafaxine ER (EFFEXOR XR) 150 mg 24 hr capsule doxycycline hyclate (VIBRAMYCIN) 100 mg capsule Take 1 capsule (100 mg) by mouth two times a day for 7 days. predniSONE (DELTASONE) 20 mg tablet Take 2 tablets by mouth once daily for 5 days. albuterol HFA (PROVENTIL HFA, VENTOLIN HFA) 90 mcg/actuation inhaler Inhale 2 Puffs as instructed every 4 hours as needed for wheezing/shortness of breath. Inhalational Spacing Device 1 Device one time only for 1 dose. escitalopram oxalate (LEXAPRO) 20 mg tablet Take 1 tablet by mouth every afternoon. (Patient not taking: Reported on 05/17/2024) fluticasone (FLONASE ALLERGY RELIEF) 50 mcg/actuation nasal spray Use 1 [place] in each nostril once daily. busPIRone (BUSPAR) 10 mg tablet TAKE 1 TABLET BY MOUTH THREE TIMES DAILY FOR ANXIETY (Patient not taking: Reported on 03/23/2024) lamoTRIgine (LAMICTAL) 100 mg tablet (Patient not taking: Reported on 03/23/2024) Review of Systems Constitutional: Negative for chills and fever. HENT: Positive for congestion and ear pain. Negative for sore throat. Eyes: Negative for redness. Respiratory: Positive for cough and wheezing. Negative for shortness of breath. Cardiovascular: Negative for chest pain. Gastrointestinal: Negative for abdominal pain, diarrhea, nausea and vomiting. Genitourinary: Negative. Musculoskeletal: Negative for myalgias. Skin: Negative for rash. All other systems reviewed and are negative. Objective BP 114/76 Pulse 80 Temp 97.8 Resp 14 Wt 167 lb (75.8kg) SpO2 98% LMP 05/14/2024 Physical Exam Constitutional: General: She is not in acute distress. Appearance: Normal appearance. She is not ill-appearing or toxic-appearing. HENT: Head: Normocephalic and atraumatic. Right Ear: Tympanic membrane normal. Left Ear: Tympanic membrane normal. Nose: Nose normal. Mouth/Throat: Mouth: Mucous membranes are moist. Pharynx: Oropharynx is clear. Uvula midline. No posterior oropharyngeal erythema or uvula swelling. Tonsils: No tonsillar exudate or tonsillar abscesses. 1+ on the right. 1+ on the left. Eyes: Conjunctiva/sclera: Conjunctivae normal. Right eye: Right conjunctiva is not injected. No exudate. Left eye: Left conjunctiva is not injected. No exudate. Cardiovascular: Rate and Rhythm: Normal rate and regular rhythm. Pulmonary: Effort: Pulmonary effort is normal. No respiratory distress. Breath sounds: No stridor. Wheezing (and crackles throughout) present. Musculoskeletal: Cervical back: Normal range of motion and neck supple. No rigidity or tenderness. Lymphadenopathy: Cervical: No cervical adenopathy. Skin: General: Skin is warm and dry. Capillary Refill: Capillary refill takes less than 2 seconds. Findings: No petechiae or rash. Neurological: Mental Status: She is alert and oriented to person, place, and time. Psychiatric: Mood and Affect: Mood normal. Behavior: Behavior normal. Medical Decision Making: Problems: Low: Acute, uncomplicated illness or injury Data: Unique source(s) for external note(s) reviewed: 1 Risk: Moderate: Moderate risk from testing/treatment and Drug management Medical Decision Making Level: 3 - Low ASSESSMENT/PLAN: 1. Bronchitis - ICD9: 490, ICD10: J40 (primary diagnosis) Pt will follow up with PCP if not better in 2-3 days or go to emergency department if worsening condition - PREDNISONE 20 MG TABLET - ALBUTEROL SULFATE HFA 90 MCG/ACTUATION AEROSOL INHALER - INHALATIONAL SPACING DEVICE 2. Acute non-recurrent pansinusitis - ICD9: 461.8, ICD10: J01.40 - DOXYCYCLINE HYCLATE 100 MG CAPSULE 3. Lower respiratory infection - ICD9: 519.8, ICD10: J22 - DOXYCYCLINE HYCLATE 100 MG CAPSULE Arielle Arias, JOSE.ENVIRONMENTAL SERVICES SPECIALIST The above reflects my independent exam and review of the patient's medical record. I saw and examined the patient myself personally. Parts of the HPI, ROS, exam, impress (more content not included)... [facility] 05-17-2024 History of Present illness Narrative Formatting of this note is different fro m the original. May 17, 2024 HPI: Val Ruiz is a 23 year old female who presents today for cough, sinus congestion, drainage and pressure with ear fullness x 2 weeks. Otc: mucinex, tylenol cold and flu PAST MEDICAL HISTORY No date: Bipolar PAST SURGICAL HISTORY No date: SECTION HX No date: TONSILLECTOMY & ADENOIDECTOMY <AGE 11 History reviewed. No pertinent family history. Social History Tobacco Use Smoking status: Never Smokeless tobacco: Never Vaping Use Vaping status: Former Substance Use Topics Alcohol use: Not Currently Drug use: Not Currently ALLERGIES Allergen Reactions Cephalexin Rash Immunization History Administered Date(s) Administered COVID-19 vaccine ([facility]) 02/22/2021 Current Medications: MUCUS RELIEF ER 600 mg 12 hr tablet TAKE 1 TABLET BY MOUTH TWICE DAILY NEEDED FOR CONGESTION QUEtiapine (SEROQUEL) 25 mg tablet venlafaxine ER (EFFEXOR XR) 150 mg 24 hr capsule doxycycline hyclate (VIBRAMYCIN) 100 mg capsule Take 1 capsule (100 mg) by mouth two times a day for 7 days. predniSONE (DELTASONE) 20 mg tablet Take 2 tablets by mouth once daily for 5 days. albuterol HFA (PROVENTIL HFA, VENTOLIN HFA) 90 mcg/actuation inhaler Inhale 2 Puffs as instructed every 4 hours as needed for wheezing/shortness of breath. Inhalational Spacing Device 1 Device one time only for 1 dose. escitalopram oxalate (LEXAPRO) 20 mg tablet Take 1 tablet by mouth every afternoon. (Patient not taking: Reported on 05/17/2024) fluticasone (FLONASE ALLERGY RELIEF) 50 mcg/actuation nasal spray Use 1 [place] in each nostril once daily. busPIRone (BUSPAR) 10 mg tablet TAKE 1 TABLET BY MOUTH THREE TIMES DAILY FOR ANXIETY (Patient not taking: Reported on 03/23/2024) lamoTRIgine (LAMICTAL) 100 mg tablet (Patient not taking: Reported on 03/23/2024) Review of Systems Constitutional: Negative for chills and fever. HENT: Positive for congestion and ear pain. Negative for sore throat. Eyes: Negative for redness. Respiratory: Positive for cough and wheezing. Negative for shortness of breath. Cardiovascular: Negative for chest pain. Gastrointestinal: Negative for abdominal pain, diarrhea, nausea and vomiting. Genitourinary: Negative. Musculoskeletal: Negative for myalgias. Skin: Negative for rash. All other systems reviewed and are negative. Objective BP 114/76 Pulse 80 Temp 97.8 Resp 14 Wt 167 lb (75.8kg) SpO2 98% LMP 05/14/2024 Physical Exam Constitutional: General: She is not in acute distress. Appearance: Normal appearance. She is not ill-appearing or toxic-appearing. HENT: Head: Normocephalic and atraumatic. Right Ear: Tympanic membrane normal. Left Ear: Tympanic membrane normal. Nose: Nose normal. Mouth/Throat: Mouth: Mucous membranes are moist. Pharynx: Oropharynx is clear. Uvula midline. No posterior oropharyngeal erythema or uvula swelling. Tonsils: No tonsillar exudate or tonsillar abscesses. 1+ on the right. 1+ on the left. Eyes: Conjunctiva/sclera: Conjunctivae normal. Right eye: Right conjunctiva is not injected. No exudate. Left eye: Left conjunctiva is not injected. No exudate. Cardiovascular: Rate and Rhythm: Normal rate and regular rhythm. Pulmonary: Effort: Pulmonary effort is normal. No respiratory distress. Breath sounds: No stridor. Wheezing (and crackles throughout) present. Musculoskeletal: Cervical back: Normal range of motion and neck supple. No rigidity or tenderness. Lymphadenopathy: Cervical: No cervical adenopathy. Skin: General: Skin is warm and dry. Capillary Refill: Capillary refill takes less than 2 seconds. Findings: No petechiae or rash. Neurological: Mental Status: She is alert and oriented to person, place, and time. Psychiatric: Mood and Affect: Mood normal. Behavior: Behavior normal. Medical Decision Making: Problems: Low: Acute, uncomplicated illness or injury Data: Unique source(s) for external note(s) reviewed: 1 Risk: Moderate: Moderate risk from testing/treatment and Drug management Medical Decision Making Level: 3 - Low ASSESSMENT/PLAN: 1. Bronchitis - ICD9: 490, ICD10: J40 (primary diagnosis) Pt will follow up with PCP if not better in 2-3 days or go to emergency department if worsening condition - PREDNISONE 20 MG TABLET - ALBUTEROL SULFATE HFA 90 MCG/ACTUATION AEROSOL INHALER - INHALATIONAL SPACING DEVICE 2. Acute non-recurrent pansinusitis - ICD9: 461.8, ICD10: J01.40 - DOXYCYCLINE HYCLATE 100 MG CAPSULE 3. Lower respiratory infection - ICD9: 519.8, ICD10: J22 - DOXYCYCLINE HYCLATE 100 MG CAPSULE Arielle Arias APRN.CNP The above reflects my independent exam and review of the patient's medical record. I saw and examined the patient myself personally. Parts of the HPI, ROS, exam, impression/plan, and testing results may have been copied from the current or previous clinical notes and remain pertinent to today's visit. Current changes have been made and documented today. Voice recognition device used, may be minor grammar or spelling errors. documented in this encounter [facility] 05-17-2024 Instructions Arielle Arias APRN.CNP - 05/17/2024 2:17 PM EDT Pt will follow up with PCP if not better in 2-3 days or go to emergency department if worsening condition What is bronchitis? Bronchitis is an infection that causes a cough. It happens when the tubes that carry air into the lungs, called the bronchi, get infected. Usually, bronchitis happens after a person gets a cold or the flu. The viruses that cause the cold or flu infect the bronchi and irritate them. Antibiotics do not help bronchitis. Bronchitis can also happen when a person gets an infection called whooping cough, but this is much less common. Whooping cough is caused by bacteria that can infect the bronchi. Most people get vaccines to prevent whooping cough, but the vaccine doesn't always work. Your doctor will be able to tell if you have whooping cough by doing an exam and listening to your cough. This article is about acute bronchitis. This is different from chronic bronchitis, which is a lung disease that can affect people who smoke. What are the symptoms of bronchitis? -- The most common symptoms of bronchitis are: ?A cough that can last up to a few weeks ?Coughing up mucus that is clear, yellow, or green - Green mucus does not always mean that you have a bacterial infection. You might also have normal cold or flu symptoms, like a stuffy nose, sore throat, or headache. People with bronchitis do not usually get a fever. Is there a test for bronchitis? -- Most people with bronchitis do not need a test. But if your doctor or nurse is not sure what is causing your cough, they might do tests. For example, they might order a chest X-ray. Or if they think that you might have COVID-19, they will test you for the virus that causes the infection. How is bronchitis treated? -- Bronchitis almost always goes away on its own. But the cough can take up to 3 weeks to get better, and sometimes even longer. Doctors do not usually treat bronchitis with antibiotic medicines. That's because bronchitis is usually caused by a virus, and antibiotics kill bacteria, not viruses. Also, antibiotics can actually cause other problems To feel better, you can treat your cold and flu symptoms. You can: ?Get lots of rest, and drink plenty of liquids. ?Drink hot tea. ?Suck on cough drops or hard candy. ?Take [id number] cough and cold medicines. ?Breath in warm, moist air, such as in the shower, over a kettle, or from a humidifier. ?Take a pain-relieving medicine if you have cold or flu symptoms like headache, muscle aches, or joint pain. Avoid smoking or being around others who smoke. This can make your cough worse. How can I keep from getting bronchitis again? -- You can reduce your chance of getting bronchitis again by keeping the germs that cause bronchitis out of your body. One of the best ways to do this is to wash your hands often with soap and water. If there is no sink nearby, you can use a hand gel with alcohol in it to clean your hands. How can I keep from spreading my germs? -- In addition to washing your hands often, cover your mouth with your elbow when you sneeze or cough. Using your elbow keeps you from getting germs on your hands. If you use a tissue, throw the tissue away and wash your hands. When should I call the doctor? -- Call for advice if you have: ?Fever higher than 100.4 F (38 C) ?Chest pain when you cough, trouble breathing, or coughing up blood ?A barking cough that makes it hard to talk ?Cough and weight loss that you cannot explain ?Symptoms that are not getting better after 3 weeks documented in this encounter [facility] 03-23-2024 Note HNO ID: [id number] Author: RICCARDO LEVINE PA Service: ? Author Type: Physician Blind Aide Type: Progress Notes Filed: 03/23/2024 13:29 Note Text: March 23, 2024 HPI: Val Ruiz is a 23 year old female who presents today for Sinusitis (Drainage/congestion/Started 1 week ago becoming worse within the last 3 days./OTC:Allergy Med/Mucinex/Tylenol Cold and Sinus), Cough, and Chest Congestion. Patient states in total it has been a week with the sinus congestion. Has a history of sinus infections in the past. Patient is coughing up yellow/green sputum as well as having green/yellow discharge coming out of her nose. Denies any chest pain or shortness of breath. No recent sick contacts. Patient is also experiencing left-sided ear pain. PAST MEDICAL HISTORY Diagnosis Date Bipolar PAST SURGICAL HISTORY Procedure Laterality Date SECTION HX TONSILLECTOMY AND ADENOIDECTOMY History reviewed. No pertinent family history. Social History Tobacco Use Smoking status: Never Smokeless tobacco: Never Vaping Use Vaping Use: Former Substance Use Topics Alcohol use: Not Currently Drug use: Not Currently ALLERGIES Allergen Reactions Cephalexin Rash Immunization History Administered Date(s) Administered COVID-19 vaccine ([facility]) 02/22/2021 Current Medications: albuterol HFA (PROVENTIL HFA, VENTOLIN HFA) 90 mcg/actuation inhaler INHALE 2 PUFFS BY MOUTH EVERY 4 TO 6 HOURS NEEDED FOR SHORTNESS OF BREATH FOR WHEEZING escitalopram oxalate (LEXAPRO) 20 mg tablet Take 1 tablet by mouth every afternoon. MUCUS RELIEF ER 600 mg 12 hr tablet TAKE 1 TABLET BY MOUTH TWICE DAILY NEEDED FOR CONGESTION QUEtiapine (SEROQUEL) 25 mg tablet amoxicillin-clavulanate potassium (AUGMENTIN) 875-125 mg per tablet Take 1 tablet by mouth two times a day for 7 days. fluticasone (FLONASE ALLERGY RELIEF) 50 mcg/actuation nasal spray Use 1 [place] in each nostril once daily. busPIRone (BUSPAR) 10 mg tablet TAKE 1 TABLET BY MOUTH THREE TIMES DAILY FOR ANXIETY (Patient not taking: Reported on 03/23/2024) lamoTRIgine (LAMICTAL) 100 mg tablet (Patient not taking: Reported on 03/23/2024) venlafaxine ER (EFFEXOR XR) 150 mg 24 hr capsule (Patient not taking: Reported on 03/23/2024) Review of Systems Constitutional: Negative for chills and fever. HENT: Positive for congestion, ear pain and sinus pain. Negative for ear discharge and sore throat. Eyes: Negative for discharge. Respiratory: Positive for cough. Negative for shortness of breath and wheezing. Cardiovascular: Negative for chest pain. Skin: Negative for rash. Neurological: Negative for headaches. Objective BP 106/73 Pulse 79 Temp 97.6 Resp 18 Wt 170 lb 6.7 oz (77.3kg) SpO2 97% LMP 02/26/2024 Physical Exam Vitals reviewed. Constitutional: General: She is not in acute distress. Appearance: Normal appearance. HENT: Head: Normocephalic and atraumatic. Right Ear: Tympanic membrane normal. Ears: Comments: Erythematous, bulging tympanic membrane, left. Nose: Congestion present. Comments: Fullness in maxillary sinuses. No tenderness and frontal sinuses or Mouth/Throat: Mouth: Mucous membranes are moist. Eyes: General: Right eye: No discharge. Left eye: No discharge. Cardiovascular: Rate and Rhythm: Normal rate and regular rhythm. Heart sounds: Normal heart sounds. Pulmonary: Effort: No respiratory distress. Breath sounds: No wheezing, rhonchi or rales. Comments: Coarse lung sounds bilaterally. Coughing in the room. Musculoskeletal: Cervical back: Normal range of motion. Neurological: Mental Status: She is alert. Psychiatric: Mood and Affect: Mood normal. ASSESSMENT/PLAN: 1. Acute non-recurrent frontal sinusitis - ICD9: 461.1, ICD10: J01.10 (primary diagnosis) - Will begin treatment with Augmentin 875 mg PO BID for 7 days - AMOXICILLIN 875 MG-POTASSIUM CLAVULANATE 125 MG TABLET - FLUTICASONE PROPIONATE 50 MCG/ACTUATION NASAL SPRAY,SUSPENSION 2. Acute otitis media, left - ICD9: 382.9, ICD10: H66.92 - Will begin treatment with Augmentin 875 mg PO BID for 7 days - AMOXICILLIN 875 MG-POTASSIUM CLAVULANATE 125 MG TABLET DEBBI Valdivia Medical Decision Making: Medical Decision Making Level: 1 - N/A MDM- History and examination consistent with acute uncomplicated sinusitis. No indication for labs or imaging at this time. No evidence of sepsis, strep pharyngitis, or pneumonia. Counseled patient/family on antibiotic treatment and supportive measures at home. Patient advised to return to clinic or present to ED if symptoms change or worsen. Otherwise follow-up with PCP. The above reflects my independent exam and review of the patient's medical record. I saw and examined the patient myself personally. Parts of the HPI, ROS, exam, impression/plan, and testing results may have been copied from the current or previous clinical notes and remain pertinent to today's visit. Current (more content not included)... [facility] 03-23-2024 History of Present illness Narrative Formatting of this note is different fro m the original. March 23, 2024 HPI: Val Ruiz is a 23 year old female who presents today for Sinusitis (Drainage/congestion/Started 1 week ago becoming worse within the last 3 days./OTC:Allergy Med/Mucinex/Tylenol Cold and Sinus), Cough, and Chest Congestion. Patient states in total it has been a week with the sinus congestion. Has a history of sinus infections in the past. Patient is coughing up yellow/green sputum as well as having green/yellow discharge coming out of her nose. Denies any chest pain or shortness of breath. No recent sick contacts. Patient is also experiencing left-sided ear pain. PAST MEDICAL HISTORY Diagnosis Date Bipolar PAST SURGICAL HISTORY Procedure Laterality Date SECTION HX TONSILLECTOMY & ADENOIDECTOMY <AGE 11 History reviewed. No pertinent family history. Social History Tobacco Use Smoking status: Never Smokeless tobacco: Never Vaping Use Vaping Use: Former Substance Use Topics Alcohol use: Not Currently Drug use: Not Currently ALLERGIES Allergen Reactions Cephalexin Rash Immunization History Administered Date(s) Administered COVID-19 vaccine ([facility] EHR) 02/22/2021 Current Medications: albuterol HFA (PROVENTIL HFA, VENTOLIN HFA) 90 mcg/actuation inhaler INHALE 2 PUFFS BY MOUTH EVERY 4 TO 6 HOURS NEEDED FOR SHORTNESS OF BREATH FOR WHEEZING escitalopram oxalate (LEXAPRO) 20 mg tablet Take 1 tablet by mouth every afternoon. MUCUS RELIEF ER 600 mg 12 hr tablet TAKE 1 TABLET BY MOUTH TWICE DAILY NEEDED FOR CONGESTION QUEtiapine (SEROQUEL) 25 mg tablet amoxicillin-clavulanate potassium (AUGMENTIN) 875-125 mg per tablet Take 1 tablet by mouth two times a day for 7 days. fluticasone (FLONASE ALLERGY RELIEF) 50 mcg/actuation nasal spray Use 1 [place] in each nostril once daily. busPIRone (BUSPAR) 10 mg tablet TAKE 1 TABLET BY MOUTH THREE TIMES DAILY FOR ANXIETY (Patient not taking: Reported on 03/23/2024) lamoTRIgine (LAMICTAL) 100 mg tablet (Patient not taking: Reported on 03/23/2024) venlafaxine ER (EFFEXOR XR) 150 mg 24 hr capsule (Patient not taking: Reported on 03/23/2024) Review of Systems Constitutional: Negative for chills and fever. HENT: Positive for congestion, ear pain and sinus pain. Negative for ear discharge and sore throat. Eyes: Negative for discharge. Respiratory: Positive for cough. Negative for shortness of breath and wheezing. Cardiovascular: Negative for chest pain. Skin: Negative for rash. Neurological: Negative for headaches. Objective BP 106/73 Pulse 79 Temp 97.6 Resp 18 Wt 170 lb 6.7 oz (77.3kg) SpO2 97% LMP 02/26/2024 Physical Exam Vitals reviewed. Constitutional: General: She is not in acute distress. Appearance: Normal appearance. HENT: Head: Normocephalic and atraumatic. Right Ear: Tympanic membrane normal. Ears: Comments: Erythematous, bulging tympanic membrane, left. Nose: Congestion present. Comments: Fullness in maxillary sinuses. No tenderness and frontal sinuses or Mouth/Throat: Mouth: Mucous membranes are moist. Eyes: General: Right eye: No discharge. Left eye: No discharge. Cardiovascular: Rate and Rhythm: Normal rate and regular rhythm. Heart sounds: Normal heart sounds. Pulmonary: Effort: No respiratory distress. Breath sounds: No wheezing, rhonchi or rales. Comments: Coarse lung sounds bilaterally. Coughing in the room. Musculoskeletal: Cervical back: Normal range of motion. Neurological: Mental Status: She is alert. Psychiatric: Mood and Affect: Mood normal. ASSESSMENT/PLAN: 1. Acute non-recurrent frontal sinusitis - ICD9: 461.1, ICD10: J01.10 (primary diagnosis) - Will begin treatment with Augmentin 875 mg PO BID for 7 days - AMOXICILLIN 875 MG-POTASSIUM CLAVULANATE 125 MG TABLET - FLUTICASONE PROPIONATE 50 MCG/ACTUATION NASAL SPRAY,SUSPENSION 2. Acute otitis media, left - ICD9: 382.9, ICD10: H66.92 - Will begin treatment with Augmentin 875 mg PO BID for 7 days - AMOXICILLIN 875 MG-POTASSIUM CLAVULANATE 125 MG TABLET DEBBI Valdivia Medical Decision Making: Medical Decision Making Level: 1 - N/A MDM- History and examination consistent with acute uncomplicated sinusitis. No indication for labs or imaging at this time. No evidence of sepsis, strep pharyngitis, or pneumonia. Counseled patient/family on antibiotic treatment and supportive measures at home. Patient advised to return to clinic or present to ED if symptoms change or worsen. Otherwise follow-up with PCP. The above reflects my independent exam and review of the patient's medical record. I saw and examined the patient myself personally. Parts of the HPI, ROS, exam, impression/plan, and testing results may have been copied from the current or previous clinical notes and remain pertinent to today's visit. Current changes have been made and documented today. Other parts or data may have been deleted if not relevant for today. Plan as outlined above. documented in this encounter [facility] 03-23-2024 Instructions Riccardo Levine PA - 03/23/2024 1:27 PM EDT Diagnosis: Assessment SINUSITIS and ear infection: You have sinusitis, an infection of the sinus cavities around the nose. This infection usually follows a respiratory illness; it can also be related to allergies, changes in atmospheric pressure (flying, diving), or anything that blocks nasal drainage. Symptoms include: headache, facial pain, a thick nasal discharge, congestion, and cough. The treatment includes antibiotic therapy, increasing oral fluids, and pain medication if needed. Nose spray decongestants (Afrin, Bob-Synephrine) and oral decongestants may be needed to reduce congestion and drainage. Rarely the sinus must be irrigated to remove the infected material. Sinusitis can lead to serious complications by spreading to other areas such as the eye or brain. Please call your doctor or return here right away if you have any of the following more serious symptoms: Unusual swelling around the eye or trouble seeing. Increasing pain, severe headache, or toothache. Nausea, vomiting, or unusual drowsiness. documented in this encounter [facility] 05-01-2022 Note HNO ID: [id number] Author: Asif Del Valle APRN.ENVIRONMENTAL SERVICES SPECIALIST Service: ? Author Type: Nurse Practitioner Type: Progress Notes Filed: 05/01/2022 10:57 AM Note Text: HPI: Val Ruiz is a 21 year old female who presents with complaint of sinus pressure, chest congestion, and cough. Patient reports symptoms started about 1 week ago but beginning yesterday developed a fever with temperature up to 101. She denies any chest pain or shortness of breath. Denies nausea or vomiting. Has been taking [id number] cold/sinus meds with no improvement of symptoms. PAST MEDICAL HISTORY Diagnosis Date Bipolar There is no problem list on file for this patient. Current Outpatient Medications Medication Sig Dispense Refill busPIRone (BUSPAR) 10 mg tablet TAKE 1 TABLET BY MOUTH THREE TIMES DAILY FOR ANXIETY lamoTRIgine (LAMICTAL) 100 mg tablet QUEtiapine (SEROQUEL) 25 mg tablet venlafaxine ER (EFFEXOR XR) 150 mg 24 hr capsule amoxicillin-clavulanic acid (AUGMENTIN) 875-125 mg per tablet Take 1 tablet by mouth twice daily for 10 days. 20 tablet 0 No current facility-administered medications for this visit. Social History Tobacco Use Smoking status: Never Smokeless tobacco: Never Vaping Use Vaping Use: Some days Substance Use Topics Alcohol use: Not Currently Drug use: Not Currently Alcohol Use: Not Currently Tobacco Use: Never History reviewed. No pertinent family history. Review of Systems Constitutional: Negative for chills, diaphoresis and fever. HENT: Positive for congestion and sinus pain. Respiratory: Positive for cough. Negative for shortness of breath. Cardiovascular: Negative for chest pain. Gastrointestinal: Negative for nausea and vomiting. BP 117/74 Pulse 88 Temp 97 Resp 18 Wt 155 lb (70.3kg) SpO2 100% LMP 04/25/2022 Physical Exam Constitutional: General: She is not in acute distress. Appearance: Normal appearance. HENT: Right Ear: Tympanic membrane and ear canal normal. Left Ear: Tympanic membrane and ear canal normal. Nose: Congestion and rhinorrhea present. Right Sinus: Frontal sinus tenderness present. Mouth/Throat: Mouth: Mucous membranes are moist. Pharynx: Posterior oropharyngeal erythema (post nasal drip) present. Cardiovascular: Rate and Rhythm: Normal rate and regular rhythm. Heart sounds: Normal heart sounds. Pulmonary: Effort: No respiratory distress. Breath sounds: Normal breath sounds. Neurological: Mental Status: She is alert and oriented to person, place, and time. Clinical Impression ICD-10-CM 1. Acute non-recurrent frontal sinusitis J01.10 amoxicillin-clavulanic acid (AUGMENTIN) 875-125 mg per tablet PLAN: Prescription for Augmentin sent to pharmacy. Should take this antibiotic until complete. Discussed OTC cold/sinus meds as needed for symptoms and increased oral hydration. She is agreeable with plan has no other questions or concerns. Asif Del Valle APRN.ENVIRONMENTAL SERVICES SPECIALIST This note was generated with voice recognition software and may contain errors, including spelling, grammar, syntax and misrecognition of what was dictated, that are not fully corrected. [facility] 05-01-2022 History of Present illness Narrative Formatting of this note is different fro m the original. HPI: Val Ruiz is a 21 year old female who presents with complaint of sinus pressure, chest congestion, and cough. Patient reports symptoms started about 1 week ago but beginning yesterday developed a fever with temperature up to 101. She denies any chest pain or shortness of breath. Denies nausea or vomiting. Has been taking nztb-zav-ahjnqme cold/sinus meds with no improvement of symptoms. PAST MEDICAL HISTORY Diagnosis Date Bipolar There is no problem list on file for this patient. Current Outpatient Medications Medication Sig Dispense Refill busPIRone (BUSPAR) 10 mg tablet TAKE 1 TABLET BY MOUTH THREE TIMES DAILY FOR ANXIETY lamoTRIgine (LAMICTAL) 100 mg tablet QUEtiapine (SEROQUEL) 25 mg tablet venlafaxine ER (EFFEXOR XR) 150 mg 24 hr capsule amoxicillin-clavulanic acid (AUGMENTIN) 875-125 mg per tablet Take 1 tablet by mouth twice daily for 10 days. 20 tablet 0 No current facility-administered medications for this visit. Social History Tobacco Use Smoking status: Never Smokeless tobacco: Never Vaping Use Vaping Use: Some days Substance Use Topics Alcohol use: Not Currently Drug use: Not Currently Alcohol Use: Not Currently Tobacco Use: Never History reviewed. No pertinent family history. Review of Systems Constitutional: Negative for chills, diaphoresis and fever. HENT: Positive for congestion and sinus pain. Respiratory: Positive for cough. Negative for shortness of breath. Cardiovascular: Negative for chest pain. Gastrointestinal: Negative for nausea and vomiting. BP 117/74 Pulse 88 Temp 97 Resp 18 Wt 155 lb (70.3kg) SpO2 100% LMP 04/25/2022 Physical Exam Constitutional: General: She is not in acute distress. Appearance: Normal appearance. HENT: Right Ear: Tympanic membrane and ear canal normal. Left Ear: Tympanic membrane and ear canal normal. Nose: Congestion and rhinorrhea present. Right Sinus: Frontal sinus tenderness present. Mouth/Throat: Mouth: Mucous membranes are moist. Pharynx: Posterior oropharyngeal erythema (post nasal drip) present. Cardiovascular: Rate and Rhythm: Normal rate and regular rhythm. Heart sounds: Normal heart sounds. Pulmonary: Effort: No respiratory distress. Breath sounds: Normal breath sounds. Neurological: Mental Status: She is alert and oriented to person, place, and time. Clinical Impression ICD-10-CM 1. Acute non-recurrent frontal sinusitis J01.10 amoxicillin-clavulanic acid (AUGMENTIN) 875-125 mg per tablet PLAN: Prescription for Augmentin sent to pharmacy. Should take this antibiotic until complete. Discussed OTC cold/sinus meds as needed for symptoms and increased oral hydration. She is agreeable with plan has no other questions or concerns. Asif Del Valle APRN.JASE This note was generated with voice recognition software and may contain errors, including spelling, grammar, syntax and misrecognition of what was dictated, that are not fully corrected. documented in this encounter [facility] 05-01-2022 Instructions Asif Del Valle APRN.CNP - 05/01/2022 10:54 AM EDT SINUSITIS: You have sinusitis, an infection of the sinus cavities around the nose. This infection usually follows a respiratory illness; it can also be related to allergies, changes in atmospheric pressure (flying, diving), or anything that blocks nasal drainage. Symptoms include: headache, facial pain, a thick nasal discharge, congestion, and cough. The treatment includes antibiotic therapy, increasing oral fluids, and pain medication if needed. Oral decongestants may be needed to reduce congestion and drainage. Sinusitis can lead to serious complications by spreading to other areas such as the eye or brain. Please call your doctor or go to ER right away if you have any of the following more serious symptoms: Unusual swelling around the eye or trouble seeing. Increasing pain, severe headache, or toothache. Nausea, vomiting, or unusual drowsiness. Follow up with PCP if symptoms continue documented in this encounter [facility] 10-18-2021 History of Present illness Narrative DATE OF SERVICE: 10/18/2021 SUBJECTIVE: Patient is a 21-year-old female presenting [facility] today for a sore throat, congestion, cough, watery eyes. Symptoms started originally 2 weeks ago. Sinus pressure and congestion seems to be getting a little worse. She denies any COVID exposure. Reports she is fully vaccinated. Fevers, sweats, chills on the first couple of days of symptoms. This has resolved. No nausea, vomiting, or diarrhea. No chest pain. No shortness of breath. PAST MEDICAL HISTORY: Anemia, asthma, depression. ALLERGIES: KEFLEX. MEDICATIONS: 1. Effexor. 2. Lamictal. 3. Seroquel. PHYSICAL EXAMINATION: Vital Signs: Reviewed and stable. General: Well appearing, nontoxic in no apparent distress. Cardiovascular: Regular rate and rhythm. No murmurs. Respiratory: Lung sounds clear to auscultation bilaterally. No respiratory distress. HEENT: Bilateral TMs clear, noninjected. Nasal mucosa erythema and edema. Yellowish, clear, thick rhinorrhea. Posterior oropharynx, postnasal drip, minimally erythematous. No tonsillar hypertrophy or exudate present. Bilateral submandibular and anterior cervical lymphadenopathy mild. No maxillary sinus tenderness. Some frontal sinus tenderness noted. Eyes, conjunctivae and sclerae clear. PERRLA. EOMI. CLINICAL IMPRESSION: 1. Acute sinusitis. 2. Cough. PLAN: Prescription for Augmentin and Bromfed DM sent to pharmacy. Discussed Tylenol, ibuprofen, increased oral hydration, finishing antibiotics until complete. Agreeable with plan. No other questions or concerns. Asif Del Valle CNP /[id number] [facility] File#: [id number] END OF DOCUMENT / CHANGE LOG FOLLOWS Last Edited By Elec. Signed By Asif Del Valle CNP #Asif Skelton CNP #[email or web address] on 10/18/2021 11:08 ET on 10/18/2021 11:08 ET Revision Number - 2 ^^^ Verified/Reviewed by 10/18/21 1108 [facility] PATIENT NAME: VAL RUIZ Carlos [address] MEDICAL REC #: [id number] [place] [address] [facility] documented in this encounter [facility] 07-31-2021 History of Present illness Narrative DATE OF SERVICE: 07/28/2021 HISTORY OF PRESENT ILLNESS: This is a 20-year-old female presenting with a chief complaint of a week-long history of cough, congestion, sinus pain, pressure, headache, ear pain and pressure, intermittent shortness of breath worse with coughing. No fever, chills currently. No belly pain, vomiting, diarrhea. Initially the patient was seen here back on July 19, 2021, treated with Zofran for nausea and other cold symptoms. The nausea has completely resolved since her initial appointment. She has had 2 COVID tests done in the emergency room since the symptoms began and both of those came back negative. She denies any chest pain. No belly pain. No recent COVID exposure. PAST MEDICAL HISTORY: Significant for asthma, anemia, depression, mental health issues. PAST SURGICAL HISTORY: Abdominal surgery, ENT surgery. SOCIAL HISTORY: Denies tobacco use. Occasional alcohol use. FAMILY HISTORY: No chronic medical conditions listed. MEDICATIONS: Include: 1. Seroquel. 2. Lamotrigine. ALLERGIES: To KEFLEX which causes rash. No other drug allergies indicated. No other allergies listed. REVIEW OF SYSTEMS: All other systems reviewed and are negative unless otherwise noted. PHYSICAL EXAMINATION: Vital Signs: Blood pressure 118/80, pulse 76, respiratory rate is 14, temperature 98.5, and oxygen 98%. General Appearance: The patient is sitting in the examination room in no acute distress. Alert and oriented x3. Pulmonary: Lungs are clear. No wheezing, rales, or rhonchi. No respiratory effort is observed. Cardiac: Normal rate and rhythm. No murmurs or gallops auscultated. Skin: Examination overall within normal limits. Abdomen: Soft, nontender, normal bowel sounds. HEENT: Bilateral tympanic membrane non-erythematous, non-bulging. Pharynx non-erythematous. Uvula midline. Airway patent. No cervical lymphadenopathy. Mild tenderness over the sinuses with palpation. DIAGNOSTICS: I did offer to do a chest x-ray. Patient deferred at this time. DIAGNOSIS: Acute sinusitis, upper respiratory infection. PLAN: Recommended symptomatic over the counter treatment. I did send over doxycycline 100 mg twice a day for 7 days to treat symptoms. Follow up with primary care. Patient agreeable, stable. All questions answered. Zoie Potter PA-C /[id number] [facility] File#: [id number] END OF DOCUMENT / CHANGE LOG FOLLOWS Last Edited By Elec. Signed By Zoie Potter PAC #[email or web address] Zoie Potter PAC #[email or web address] on 08/04/2021 14:37 ET on 08/04/2021 14:37 ET Revision Number - 2 ^^^ Verified/Reviewed by 08/04/21 1437 [facility] PATIENT NAME: VAL RUIZ [address] MEDICAL REC #: [id number] [place] [address] [place] [facility] documented in this encounter [facility] 04-27-2021 History of Present illness Narrative DATE OF SERVICE: 04/26/2021 HISTORY OF PRESENT ILLNESS: Patient is a 20-year-old female here for fever, sore throat, cough, congestion, dizziness, headache, nausea. Fever up to 102 yesterday. She has had symptoms since around Saturday or Saturday. ALLERGIES: KEFLEX. PHYSICAL EXAMINATION: Vital Signs: Blood pressure 118/80, pulse 84, respirations 12, temperature 100.1, pulse oximetry 97%. Pain 8 out of 10. She works at [employer]. No exposure to COVID that she knows of. General: She is alert and oriented x3, in no apparent distress. HEENT: All within normal limits with the exception of the oropharynx mildly erythematous. Some tenderness in the anterior lymph nodes. Cardiac: Normal rate and rhythm without evidence of murmur. The lungs are slightly rhonchitic bilaterally. LABORATORY DATA: Rapid strep was done, which returned negative. COVID swab was also done, which is still pending. DIAGNOSIS: 1. Fever. 2. Sinusitis. PLAN: She Is placed on a Z-Hermelindo pending COVID swab. Follow up as needed. They acknowledged and understood. Misty López PA-C [id number] [facility] File#: [id number] END OF DOCUMENT / CHANGE LOG FOLLOWS Last Edited By Audie. Signed By Misty López Chelsea D PAC #PRICH on 04/28/2021 13:23 ET on 04/28/2021 13:23 ET Revision Number - 2 ^^^ Verified/Reviewed by 04/28/21 1323 [facility] PATIENT NAME: VAL RUIZ N [address] MEDICAL REC #: [id number] [place] [address] [facility] documented in this encounter [facility] 03-27-2021 History of Present illness Narrative DATE OF SERVICE: 03/27/2021 SUBJECTIVE: Patient is a 20-year-old female presenting to [facility] today for fever, body aches, cough, congestion, sore throat, and some nausea. Symptoms originally started about 6 days ago. She states she did have a known COVID exposure to a co-worker about a week and a half ago. She states she has received the [employer] vaccination at the beginning of February. She comes in today just because she is not feeling any better. She was expecting to have improvement of symptoms. No vomiting. Has intermittently had some diarrhea as well and some shortness of breath. No loss of taste or smell. PAST MEDICAL HISTORY: Anemia, arthritis, asthma, headaches, depression, mental health issues. ALLERGIES: KEFLEX. MEDICATIONS: 1. Lamictal. 2. Seroquel. 3. Zoloft. PHYSICAL EXAMINATION: Vital signs reviewed and stable. General: Well appearing, non-toxic. No apparent distress. Cardiovascular: Regular rate and rhythm. No murmurs. Respiratory: Lung sounds clear to auscultation bilaterally. No respiratory distress. Gastrointestinal: Normal bowel sounds. No abdominal tenderness, flank tenderness, or CVA tenderness. HEENT: Bilateral TMs clear, non-injected. Nasal mucosa erythema and edema. Clear rhinorrhea. Posterior pharynx: Postnasal drip. No tonsillar hypertrophy or exudates present. CLINICAL IMPRESSION: 1. Viral illness. 2. Rule out COVID-19. PLAN: Prescription of Bromfed DM sent to pharmacy. Discussed rest, Tylenol, ibuprofen, increased oral hydration, quarantining at home pending COVID-19 test results. She is agreeable with plan, has no other questions or concerns. Asif Del Valle CNP [id number] [facility] File#: [id number] END OF DOCUMENT / CHANGE LOG FOLLOWS Last Edited By Audie. Signed By Asif Del Valle CNP #Asif Skelton CNP #CHANTAL on 03/27/2021 16:39 ET on 03/27/2021 16:39 ET Revision Number - 2 ^^^ Verified/Reviewed by 03/27/21 1639 [facility] PATIENT NAME: VAL RUIZ N [address] MEDICAL REC #: [id number] [place] [address] [place] [facility] documented in this encounter [facility] 03-22-2021 History of Present illness Narrative DATE OF SERVICE: 03/21/2021 HISTORY OF PRESENT ILLNESS: Patient is a 20-year-old female presenting to [facility] today for body aches, fever, chills, headache and nausea. It started a couple of days ago. Fever was low-grade this morning. She also reports she has been having some dysuria and dark malodorous urine as well. Has not really been eating or drinking much due to the nausea. No chest pain, no shortness of breath, no cough or congestion. PAST MEDICAL HISTORY: Anemia, asthma, depression, headache, mental health issues. ALLERGIES: KEFLEX. MEDICATIONS: 1. Seroquel. 2. Lamictal. 3. Zoloft. PHYSICAL EXAMINATION: Vital signs reviewed and stable. General: Well-appearing, nontoxic, no apparent distress. Mucous membranes moist. Cardiovascular: Regular rate and rhythm, no murmurs. Respiratory: Lung sounds clear to auscultation bilaterally, no respiratory distress. Gastrointestinal: Normal bowel sounds. Lower abdominal tenderness mild, no rebound tenderness, guarding or rigidity. No flank tenderness or CVA tenderness. Urinalysis obtained, negative blood, negative nitrites, negative leukocyte esterase. This will be sent out for urine culture. CLINICAL IMPRESSION: 1. Viral illness. 2. Nausea. 3. Fever. 4. Dysuria. PLAN: Jessica HUSAIN sent to pharmacy. I discussed follow-up in regards to urine culture. Tylenol, ibuprofen, increased oral hydration, rest. Off work today and tomorrow. She is agreeable with plan. No other questions or concerns. Asif Del Valle CNP /[id number] SSI File#: [id number] END OF DOCUMENT / CHANGE LOG FOLLOWS Last Edited By Audie. Signed By Asif Del Valle CNP #Asif Skelton CNP #[email or web address] on 03/26/2021 09:06 ET on 03/26/2021 09:06 ET Revision Number - 2 ^^^ Verified/Reviewed by 03/26/21 0906 [facility] PATIENT NAME: VAL RUIZ [address] MEDICAL REC #: [id number] [place] [address] [facility] RE[facility] documented in this encounter [facility] 12-30-2020 History of Present illness Narrative DATE OF SERVICE: 12/30/2020 CHIEF COMPLAINT: Abdominal pain, diarrhea. HISTORY OF PRESENT ILLNESS: Patient is a 20-year-old female who presents with a less than 1-day history of abdominal pain and diarrhea. She states that about 3 a.m. today she woke up and she was having sharp abdominal cramps. Whenever she would have that, she felt like she had to have a bowel movement. She has had diarrhea ever since then. It was about 20 to 30 minutes that she was having a bowel movement in that timeframe and now it has slowed up and now it is about once every hour. She was not able to go to work because she was constantly in the restroom, so she was wanting to come in today in order to be evaluated and also she is in need of a work note. PAST MEDICAL HISTORY: Anemia, arthritis, asthma, depression, mental health issues. PAST SURGICAL HISTORY: Abdominal and ENT. CURRENT MEDICATIONS: Reviewed and considered. ALLERGIES: KEFLEX AND ONIONS. SOCIAL HISTORY: Admits to alcohol use, denies tobacco use. REVIEW OF SYSTEMS: General: Denies fevers, chills, body aches. HEENT: Admits to headache, denies changes in vision. Respiratory: Denies cough, wheezing, or shortness of breath. Cardiovascular: Denies dyspnea, chest pain and palpitations. Gastrointestinal: Admits to nausea, denies vomiting, admits to abdominal cramping, admits to diarrhea. Denies blood within the stool. PHYSICAL EXAMINATION: Vital Signs: Blood pressure 112/68, pulse 90, respiration rate 16, temperature 98.0, pulse oximetry on room air 99%. General: Patient is alert and oriented x3. Appears to be in no acute distress. Skin: The patient has good skin turgor. She has also moist mucous membranes. No signs of dehydration. Respiratory: Normal breath sounds heard in all lung santana. No wheezing, rhonchi, or rales present. Cardiac exam: Regular rate and rhythm. No murmurs noted. Abdominal: Increased bowel sounds heard in all 4 quadrants. No abdomen bruits noted. Slight tenderness to palpation of all 4 quadrants; however, no pain to deep palpation. No distension, guarding or organomegaly present. Negative CVA tenderness bilaterally. DIAGNOSIS: Gastroenteritis. PLAN: The patient is to get lot of fluids in, especially ones with electrolytes and she is to use the BRAT diet. Follow up at her primary care doctor if she is not improving. If any worsening symptoms, then she is to go to the ER. Patient agrees and understands the plan at this time. The patient stable upon discharge from [facility]. JENI Szymanski/[id number] SSI File#: [id number] END OF DOCUMENT / CHANGE LOG FOLLOWS Last Edited By Audie. Signed By Destini Rogel #[email or web address] Destini Rogel #[email or web address] on 12/30/2020 10:53 ET on 12/30/2020 10:53 ET Revision Number - 2 ^^^ Verified/Reviewed by 12/30/20 1053 [id number] PATIENT NAME: VAL RUIZ [address] MEDICAL REC #: [id number] [place] [address] [facility] REPORT [facility] PHYSICIAN documented in this encounter [facility] Evaluation note Diagnosis Acute non-recurrent frontal sinusitis- Primary [facility] Diagnosis Acute non-recurrent frontal sinusitis- Primary Acute otitis media, left Unspecified otitis media [facility]* Diagnosis Bronchitis- Primary Bronchitis, not specified as acute or chronic Acute non-recurrent pansinusitis Lower respiratory infection Other diseases of respiratory system, not elsewhere classified [facility]* Diagnosis Acute cough- Primary URI, acute Acute upper respiratory infections of unspecified site Acute cough [facility]* Diagnosis Acute cough documented in this encounter [facility] note* Diagnosis Missed period- Primary Irregular menstrual cycle Encounter for confirmation of test result with physical examination examination or test, unconfirmed documented in this encounter [facility] note* Diagnosis Rhinosinusitis- Primary Unspecified sinusitis (chronic) documented in this encounter [facility] note* Diagnosis with uncertain dates in first trimester- Primary Previous delivery affecting , antepartum Previous delivery, antepartum condition or complication Screening for malignant neoplasm of cervix Screening for malignant neoplasm of the cervix Less than 8 weeks gestation of state, incidental Bipolar 1 disorder, mixed (HCC) Bipolar I disorder, most recent episode (or current) mixed, unspecified Asthma, unspecified asthma severity, unspecified whether complicated, unspecified whether persistent Obesity during Encounter for supervision of high risk in first trimester, antepartum History of delivery Other postprocedural status Depression, major, recurrent, moderate (HCC) Major depressive disorder, recurrent episode, moderate Anxiety Anxiety state, unspecified History of gestational diabetes mellitus (GDM) documented [facility]* Diagnosis URI, acute- Primary Acute upper respiratory infections of unspecified site Acute cough documented in this encounter [facility] note* Diagnosis Bacterial sinusitis- Primary Unspecified sinusitis (chronic) Bacterial conjunctivitis Other conjunctivitis [facility] Diagnosis 13 weeks gestation of - Primary state, incidental Encounter for supervision of other normal in second trimester documented [facility]* Diagnosis Encounter for screening for malformation using ultrasound- Primary 13 weeks gestation of state, incidental documented in this encounter [facility] note* Diagnosis Elevated hemoglobin A1c- Primary Other abnormal blood chemistry documented in this encounter [facility] note* Diagnosis 14 weeks gestation of - Primary state, incidental [facility] Diagnosis Elevated glucose tolerance test- Primary Impaired glucose tolerance test Diet controlled gestational diabetes mellitus (GDM) in second trimester [facility] Diagnosis Diet controlled gestational diabetes mellitus (GDM) in second trimester [facility] Diagnosis Encounter for screening for malformation using ultrasound- Primary Encounter for anatomic survey 17 weeks gestation of state, incidental [facility] Diagnosis Elevated glucose tolerance test- Primary Impaired glucose tolerance test Encounter for supervision of other normal in second trimester 17 weeks gestation of state, incidental Pre-existing type 2 diabetes mellitus during in first trimester Pre-existing diabetes mellitus in in second trimester Diabetes mellitus, antepartum [facility] Diagnosis Acute non-recurrent sinusitis, unspecified location- Primary [facility] Diagnosis Insulin controlled gestational diabetes mellitus (GDM) in second trimester- Primary [facility]* Diagnosis Supervision of high risk in second trimester- Primary Unspecified high-risk Pre-existing diabetes mellitus in in second trimester Diabetes mellitus, antepartum 21 weeks gestation of state, incidental Previous delivery affecting , antepartum Previous delivery, antepartum condition or complication [facility] Diagnosis Encounter for anatomic survey- Primary Encounter for supervision of other normal in second trimester 21 weeks gestation of state, incidental [facility] Diagnosis Maternal care for (suspected) abnormality and damage, unspecified, fetus 1 [O35.9XX1]- Primary [facility]* Diagnosis Encounter for ultrasound to check growth- Primary Encounter for routine screening for malformation using ultrasonics Diet controlled gestational diabetes mellitus (GDM) in second trimester 25 weeks gestation of state, incidental Supervision of high risk in second trimester- Primary Unspecified high-risk Pre-existing diabetes mellitus in in second trimester Diabetes mellitus, antepartum Previous delivery affecting , antepartum Previous delivery, antepartum condition or complication 25 weeks gestation of state, incidental [facility] Diagnosis Supervision of high risk in second trimester- Primary Unspecified high-risk Pre-existing diabetes mellitus in in second trimester Diabetes mellitus, antepartum Previous delivery affecting , antepartum Previous delivery, antepartum condition or complication 25 weeks gestation of state, incidental * Assessment & Plan Note - Alfred Arcos MD - 12/03/2024 1:53 PM EDTAssociated Problem(s): Pre-existing diabetes mellitus in in second trimester Orders: URINE OB DIP B/O Continue management by endocrinology. Growth US today. documented in this encounter [facility] note* Diagnosis Supervision of high risk in second trimester- Primary Unspecified high-risk Pre-existing diabetes mellitus in in second trimester Diabetes mellitus, antepartum Previous delivery affecting , antepartum Previous delivery, antepartum condition or complication 25 weeks gestation of state, incidental Insulin controlled gestational diabetes mellitus (GDM) in third trimester- Primary documented in this encounter [facility] note* Diagnosis Supervision of high risk in second trimester (HCC)- Primary Unspecified high-risk Pre-existing diabetes mellitus in in second trimester (HCC) Diabetes mellitus, antepartum Previous delivery affecting , antepartum (HCC) Previous delivery, antepartum condition or complication 25 weeks gestation of (HCC) state, incidental Pre-existing diabetes mellitus in in second trimester (HCC)- Primary Diabetes mellitus, antepartum Previous delivery affecting , antepartum (HCC) Previous delivery, antepartum condition or complication Supervision of high risk in third trimester (HCC) Unspecified high-risk * Assessment & Plan Note - Alfred Arcos MD - 12/25/2024 11:02 AM EDTAssociated Problem(s): Pre-existing diabetes mellitus in in second trimester (HCC) Managed by & on insulin. Orders: URINE OB DIP B/O documented in this encounter [facility] note* Diagnosis Supervision of high risk in second trimester (HCC)- Primary Unspecified high-risk Pre-existing diabetes mellitus in in second trimester ([facility]) Diabetes mellitus, antepartum Previous delivery affecting , antepartum ([facility]) Previous delivery, antepartum condition or complication 25 weeks gestation of ([facility]) state, incidental Encounter for ultrasound to check growth ([facility])- Primary Encounter for routine screening for malformation using ultrasonics Pre-existing diabetes mellitus in in second trimester ([facility]) Diabetes mellitus, antepartum 28 weeks gestation of ([facility]) state, incidental Pre-existing diabetes mellitus in in second trimester ([facility])- Primary Diabetes mellitus, antepartum Previous delivery affecting , antepartum ([facility]) Previous delivery, antepartum condition or complication Supervision of high risk in third trimester ([facility]) Unspecified high-risk documented in this encounter [facility] note* Diagnosis Supervision of high risk in second trimester ([facility])- Primary Unspecified high-risk Pre-existing diabetes mellitus in in second trimester ([facility]) Diabetes mellitus, antepartum Previous delivery affecting , antepartum ([facility]) Previous delivery, antepartum condition or complication 25 weeks gestation of ([facility]) state, incidental Pre-existing diabetes mellitus in in second trimester ([facility])- Primary Diabetes mellitus, antepartum Previous delivery affecting , antepartum ([facility]) Previous delivery, antepartum condition or complication Supervision of high risk in third trimester ([facility]) Unspecified high-risk Maternal iron deficiency anemia complicating , third trimester ([facility])- Primary documented in this encounter [facility] note* Diagnosis Supervision of high risk in second trimester ([facility])- Primary Unspecified high-risk Pre-existing diabetes mellitus in in second trimester ([facility]) Diabetes mellitus, antepartum Previous delivery affecting , antepartum ([facility]) Previous delivery, antepartum condition or complication 25 weeks gestation of ([facility]) state, incidental Pre-existing diabetes mellitus in in second trimester ([facility])- Primary Diabetes mellitus, antepartum Previous delivery affecting , antepartum ([facility]) Previous delivery, antepartum condition or complication Supervision of high risk in third trimester ([facility]) Unspecified high-risk 30 weeks gestation of ([facility])- Primary state, incidental Previous section Other postprocedural status Need for vaccination Need for prophylactic vaccination and inoculation against unspecified single disease Pre-existing diabetes mellitus in in second trimester (HCC) Diabetes mellitus, antepartum Maternal iron deficiency anemia complicating , third trimester ([facility]) * Assessment & Plan Note - Alfred Arcos MD - 01/07/2025 2:22 PM EDTAssociated Problem(s): Pre-existing diabetes mellitus in in second trimester ([facility]) Well controlled on insulin. Follows with endo. * Assessment & Plan Note - Alfred Arcos MD - 01/07/2025 2:22 PM EDTAssociated Problem(s): Maternal iron deficiency anemia complicating , third trimester ([facility]) Needs to schedule IV iron. documented in this encounter [facility] note* Diagnosis Supervision of high risk in second trimester (HCC)- Primary Unspecified high-risk Pre-existing diabetes mellitus in in second trimester ([facility]) Diabetes mellitus, antepartum Previous delivery affecting , antepartum ([facility]) Previous delivery, antepartum condition or complication 25 weeks gestation of ([facility]) state, incidental Pre-existing diabetes mellitus in in second trimester ([facility])- Primary Diabetes mellitus, antepartum Previous delivery affecting , antepartum ([facility]) Previous delivery, antepartum condition or complication Supervision of high risk in third trimester ([facility]) Unspecified high-risk 30 weeks gestation of ([facility])- Primary state, incidental Previous section Other postprocedural status Need for vaccination Need for prophylactic vaccination and inoculation against unspecified single disease Pre-existing diabetes mellitus in in second trimester (HCC) Diabetes mellitus, antepartum Maternal iron deficiency anemia complicating , third trimester (HCC) Malignant neoplasm of prostate (HCC)- Primary Malignant neoplasm of prostate Maternal iron deficiency anemia complicating , third trimester ([facility]) [facility]* Diagnosis Supervision of high risk in second trimester (HCC)- Primary Unspecified high-risk Pre-existing diabetes mellitus in in second trimester ([facility]) Diabetes mellitus, antepartum Previous delivery affecting , antepartum (HCC) Previous delivery, antepartum condition or complication 25 weeks gestation of ([facility]) state, incidental Pre-existing diabetes mellitus in in second trimester ([facility])- Primary Diabetes mellitus, antepartum Previous delivery affecting , antepartum (HCC) Previous delivery, antepartum condition or complication Supervision of high risk in third trimester ([facility]) Unspecified high-risk 30 weeks gestation of ([facility])- Primary state, incidental Previous section Other postprocedural status Need for vaccination Need for prophylactic vaccination and inoculation against unspecified single disease Pre-existing diabetes mellitus in in second trimester ([facility]) Diabetes mellitus, antepartum Maternal iron deficiency anemia complicating , third trimester ([facility]) Maternal iron deficiency anemia complicating , third trimester ([facility])- Primary [facility]* Diagnosis Supervision of high risk in second trimester ([facility])- Primary Unspecified high-risk Pre-existing diabetes mellitus in in second trimester ([facility]) Diabetes mellitus, antepartum Previous delivery affecting , antepartum ([facility]) Previous delivery, antepartum condition or complication 25 weeks gestation of ([facility]) state, incidental Pre-existing diabetes mellitus in in second trimester ([facility])- Primary Diabetes mellitus, antepartum Previous delivery affecting , antepartum ([facility]) Previous delivery, antepartum condition or complication Supervision of high risk in third trimester ([facility]) Unspecified high-risk 30 weeks gestation of ([facility])- Primary state, incidental Previous section Other postprocedural status Need for vaccination Need for prophylactic vaccination and inoculation against unspecified single disease Pre-existing diabetes mellitus in in second trimester ([facility]) Diabetes mellitus, antepartum Maternal iron deficiency anemia complicating , third trimester ([facility]) Maternal iron deficiency anemia complicating , third trimester ([facility])- Primary [facility] Diagnosis Supervision of high risk in second trimester ([facility])- Primary Unspecified high-risk Pre-existing diabetes mellitus in in second trimester ([facility]) Diabetes mellitus, antepartum Previous delivery affecting , antepartum ([facility]) Previous delivery, antepartum condition or complication 25 weeks gestation of ([facility]) state, incidental Pre-existing diabetes mellitus in in second trimester ([facility])- Primary Diabetes mellitus, antepartum Previous delivery affecting , antepartum ([facility]) Previous delivery, antepartum condition or complication Supervision of high risk in third trimester ([facility]) Unspecified high-risk 30 weeks gestation of ([facility])- Primary state, incidental Previous section Other postprocedural status Need for vaccination Need for prophylactic vaccination and inoculation against unspecified single disease Pre-existing diabetes mellitus in in second trimester ([facility]) Diabetes mellitus, antepartum Maternal iron deficiency anemia complicating , third trimester ([facility]) Insulin controlled gestational diabetes mellitus (GDM) in third trimester ([facility])- Primary documented in this encounter [facility] note* Diagnosis Supervision of high risk in second trimester ([facility])- Primary Unspecified high-risk Pre-existing diabetes mellitus in in second trimester ([facility]) Diabetes mellitus, antepartum Previous delivery affecting , antepartum ([facility]) Previous delivery, antepartum condition or complication 25 weeks gestation of ([facility]) state, incidental Pre-existing diabetes mellitus in in second trimester ([facility])- Primary Diabetes mellitus, antepartum Previous delivery affecting , antepartum ([facility]) Previous delivery, antepartum condition or complication Supervision of high risk in third trimester ([facility]) Unspecified high-risk 30 weeks gestation of ([facility])- Primary state, incidental Previous section Other postprocedural status Need for vaccination Need for prophylactic vaccination and inoculation against unspecified single disease Pre-existing diabetes mellitus in in second trimester ([facility]) Diabetes mellitus, antepartum Maternal iron deficiency anemia complicating , third trimester ([facility]) 32 weeks gestation of ([facility])- Primary state, incidental Pre-existing diabetes mellitus in in second trimester ([facility]) Diabetes mellitus, antepartum Previous section Other postprocedural status Anemia complicating , third trimester ([facility]) documented in this encounter [facility] note* Diagnosis Supervision of high risk in second trimester ([facility])- Primary Unspecified high-risk Pre-existing diabetes mellitus in in second trimester ([facility]) Diabetes mellitus, antepartum Previous delivery affecting , antepartum ([facility]) Previous delivery, antepartum condition or complication 25 weeks gestation of ([facility]) state, incidental Pre-existing diabetes mellitus in in second trimester ([facility])- Primary Diabetes mellitus, antepartum Previous delivery affecting , antepartum ([facility]) Previous delivery, antepartum condition or complication Supervision of high risk in third trimester ([facility]) Unspecified high-risk 30 weeks gestation of ([facility])- Primary state, incidental Previous section Other postprocedural status Need for vaccination Need for prophylactic vaccination and inoculation against unspecified single disease Pre-existing diabetes mellitus in in second trimester ([facility]) Diabetes mellitus, antepartum Maternal iron deficiency anemia complicating , third trimester ([facility]) Encounter for ultrasound to check growth ([facility])- Primary Encounter for routine screening for malformation using ultrasonics Pre-existing diabetes mellitus in in second trimester ([facility]) Diabetes mellitus, antepartum 32 weeks gestation of ([facility]) state, incidental 32 weeks gestation of ([facility])- Primary state, incidental Pre-existing diabetes mellitus in in second trimester ([facility]) Diabetes mellitus, antepartum Previous section Other postprocedural status Anemia complicating , third trimester ([facility]) documented in this encounter [facility] note* Diagnosis Supervision of high risk in second trimester ([facility])- Primary Unspecified high-risk Pre-existing diabetes mellitus in in second trimester ([facility]) Diabetes mellitus, antepartum Previous delivery affecting , antepartum ([facility]) Previous delivery, antepartum condition or complication 25 weeks gestation of ([facility]) state, incidental Pre-existing diabetes mellitus in in second trimester ([facility])- Primary Diabetes mellitus, antepartum Previous delivery affecting , antepartum ([facility]) Previous delivery, antepartum condition or complication Supervision of high risk in third trimester ([facility]) Unspecified high-risk 30 weeks gestation of ([facility])- Primary state, incidental Previous section Other postprocedural status Need for vaccination Need for prophylactic vaccination and inoculation against unspecified single disease Pre-existing diabetes mellitus in in second trimester ([facility]) Diabetes mellitus, antepartum Maternal iron deficiency anemia complicating , third trimester ([facility]) 32 weeks gestation of ([facility])- Primary state, incidental Pre-existing diabetes mellitus in in second trimester ([facility]) Diabetes mellitus, antepartum Previous section Other postprocedural status Anemia complicating , third trimester ([facility]) Maternal iron deficiency anemia complicating , third trimester ([facility])- Primary documented in this encounter [facility] note* Diagnosis Supervision of high risk in second trimester ([facility])- Primary Unspecified high-risk Pre-existing diabetes mellitus in in second trimester ([facility]) Diabetes mellitus, antepartum Previous delivery affecting , antepartum ([facility]) Previous delivery, antepartum condition or complication 25 weeks gestation of ([facility]) state, incidental Pre-existing diabetes mellitus in in second trimester ([facility])- Primary Diabetes mellitus, antepartum Previous delivery affecting , antepartum ([facility]) Previous delivery, antepartum condition or complication Supervision of high risk in third trimester ([facility]) Unspecified high-risk 30 weeks gestation of ([facility])- Primary state, incidental Previous section Other postprocedural status Need for vaccination Need for prophylactic vaccination and inoculation against unspecified single disease Pre-existing diabetes mellitus in in second trimester ([facility]) Diabetes mellitus, antepartum Maternal iron deficiency anemia complicating , third trimester ([facility]) 32 weeks gestation of ([facility])- Primary state, incidental Pre-existing diabetes mellitus in in second trimester ([facility]) Diabetes mellitus, antepartum Previous section Other postprocedural status Anemia complicating , third trimester ([facility]) Pre-existing diabetes mellitus in in second trimester ([facility])- Primary Diabetes mellitus, antepartum 32 weeks gestation of ([facility]) state, incidental [facility] Supervision of high risk in second trimester ([facility])- Primary Unspecified high-risk Pre-existing diabetes mellitus in in second trimester ([facility]) Diabetes mellitus, antepartum Previous delivery affecting , antepartum ([facility]) Previous delivery, antepartum condition or complication 25 weeks gestation of ([facility]) state, incidental Pre-existing diabetes mellitus in in second trimester ([facility])- Primary Diabetes mellitus, antepartum Previous delivery affecting , antepartum ([facility]) Previous delivery, antepartum condition or complication Supervision of high risk in third trimester ([facility]) Unspecified high-risk 30 weeks gestation of ([facility])- Primary state, incidental Previous section Other postprocedural status Need for vaccination Need for prophylactic vaccination and inoculation against unspecified single disease Pre-existing diabetes mellitus in in second trimester ([facility]) Diabetes mellitus, antepartum Maternal iron deficiency anemia complicating , third trimester ([facility]) 32 weeks gestation of ([facility])- Primary state, incidental Pre-existing diabetes mellitus in in second trimester ([facility]) Diabetes mellitus, antepartum Previous section Other postprocedural status Anemia complicating , third trimester ([facility]) Supervision of high risk in third trimester ([facility])- Primary Unspecified high-risk Previous section Other postprocedural status Anemia complicating , third trimester ([facility]) 33 weeks gestation of ([facility]) state, incidental Pre-existing diabetes mellitus in in third trimester ([facility]) Diabetes mellitus, antepartum documented in this encounter [facility] note* Diagnosis Supervision of high risk in second trimester ([facility])- Primary Unspecified high-risk Pre-existing diabetes mellitus in in second trimester ([facility]) Diabetes mellitus, antepartum Previous delivery affecting , antepartum ([facility]) Previous delivery, antepartum condition or complication 25 weeks gestation of ([facility]) state, incidental Pre-existing diabetes mellitus in in second trimester ([facility])- Primary Diabetes mellitus, antepartum Previous delivery affecting , antepartum ([facility]) Previous delivery, antepartum condition or complication Supervision of high risk in third trimester ([facility]) Unspecified high-risk 30 weeks gestation of ([facility])- Primary state, incidental Previous section Other postprocedural status Need for vaccination Need for prophylactic vaccination and inoculation against unspecified single disease Pre-existing diabetes mellitus in in second trimester ([facility]) Diabetes mellitus, antepartum Maternal iron deficiency anemia complicating , third trimester ([facility]) 32 weeks gestation of ([facility])- Primary state, incidental Pre-existing diabetes mellitus in in second trimester ([facility]) Diabetes mellitus, antepartum Previous section Other postprocedural status Anemia complicating , third trimester ([facility]) Pre-existing diabetes mellitus in in second trimester ([facility])- Primary Diabetes mellitus, antepartum 33 weeks gestation of ([facility]) state, incidental [facility] Diagnosis Supervision of high risk in second trimester ([facility])- Primary Unspecified high-risk Pre-existing diabetes mellitus in in second trimester ([facility]) Diabetes mellitus, antepartum Previous delivery affecting , antepartum ([facility]) Previous delivery, antepartum condition or complication 25 weeks gestation of ([facility]) state, incidental Pre-existing diabetes mellitus in in second trimester ([facility])- Primary Diabetes mellitus, antepartum Previous delivery affecting , antepartum ([facility]) Previous delivery, antepartum condition or complication Supervision of high risk in third trimester ([facility]) Unspecified high-risk 30 weeks gestation of ([facility])- Primary state, incidental Previous section Other postprocedural status Need for vaccination Need for prophylactic vaccination and inoculation against unspecified single disease Pre-existing diabetes mellitus in in second trimester ([facility]) Diabetes mellitus, antepartum Maternal iron deficiency anemia complicating , third trimester ([facility]) 32 weeks gestation of ([facility])- Primary state, incidental Pre-existing diabetes mellitus in in second trimester ([facility]) Diabetes mellitus, antepartum Previous section Other postprocedural status Anemia complicating , third trimester ([facility]) Supervision of high risk in third trimester ([facility])- Primary Unspecified high-risk Previous section Other postprocedural status Pre-existing diabetes mellitus in in third trimester ([facility]) Diabetes mellitus, antepartum 34 weeks gestation of ([facility]) state, incidental Headache in , antepartum, third trimester ([facility]) [facility] Diagnosis Supervision of high risk in second trimester ([facility])- Primary Unspecified high-risk Pre-existing diabetes mellitus in in second trimester ([facility]) Diabetes mellitus, antepartum Previous delivery affecting , antepartum ([facility]) Previous delivery, antepartum condition or complication 25 weeks gestation of ([facility]) state, incidental Pre-existing diabetes mellitus in in second trimester ([facility])- Primary Diabetes mellitus, antepartum Previous delivery affecting , antepartum ([facility]) Previous delivery, antepartum condition or complication Supervision of high risk in third trimester ([facility]) Unspecified high-risk 30 weeks gestation of ([facility])- Primary state, incidental Previous section Other postprocedural status Need for vaccination Need for prophylactic vaccination and inoculation against unspecified single disease Pre-existing diabetes mellitus in in second trimester ([facility]) Diabetes mellitus, antepartum Maternal iron deficiency anemia complicating , third trimester ([facility]) 32 weeks gestation of ([facility])- Primary state, incidental Pre-existing diabetes mellitus in in second trimester ([facility]) Diabetes mellitus, antepartum Previous section Other postprocedural status Anemia complicating , third trimester ([facility]) Pre-existing diabetes mellitus in in second trimester ([facility])- Primary Diabetes mellitus, antepartum 34 weeks gestation of ([facility]) state, incidental documented in this encounter [facility] note* Diagnosis Supervision of high risk in second trimester ([facility])- Primary Unspecified high-risk Pre-existing diabetes mellitus in in second trimester ([facility]) Diabetes mellitus, antepartum Previous delivery affecting , antepartum ([facility]) Previous delivery, antepartum condition or complication 25 weeks gestation of ([facility]) state, incidental Pre-existing diabetes mellitus in in second trimester ([facility])- Primary Diabetes mellitus, antepartum Previous delivery affecting , antepartum ([facility]) Previous delivery, antepartum condition or complication Supervision of high risk in third trimester ([facility]) Unspecified high-risk 30 weeks gestation of ([facility])- Primary state, incidental Previous section Other postprocedural status Need for vaccination Need for prophylactic vaccination and inoculation against unspecified single disease Pre-existing diabetes mellitus in in second trimester ([facility]) Diabetes mellitus, antepartum Maternal iron deficiency anemia complicating , third trimester ([facility]) 32 weeks gestation of ([facility])- Primary state, incidental Pre-existing diabetes mellitus in in second trimester ([facility]) Diabetes mellitus, antepartum Previous section Other postprocedural status Anemia complicating , third trimester ([facility]) Supervision of high risk in third trimester ([facility])- Primary Unspecified high-risk Pre-existing diabetes mellitus in in third trimester ([facility]) Diabetes mellitus, antepartum Previous section Other postprocedural status Anemia complicating , third trimester ([facility]) Obesity during ([facility]) Pre-existing diabetes mellitus in in second trimester ([facility])- Primary Diabetes mellitus, antepartum documented in this encounter [facility] note* Diagnosis Supervision of high risk in second trimester ([facility])- Primary Unspecified high-risk Pre-existing diabetes mellitus in in second trimester ([facility]) Diabetes mellitus, antepartum Previous delivery affecting , antepartum ([facility]) Previous delivery, antepartum condition or complication 25 weeks gestation of ([facility]) state, incidental Pre-existing diabetes mellitus in in second trimester ([facility])- Primary Diabetes mellitus, antepartum Previous delivery affecting , antepartum ([facility]) Previous delivery, antepartum condition or complication Supervision of high risk in third trimester ([facility]) Unspecified high-risk 30 weeks gestation of ([facility])- Primary state, incidental Previous section Other postprocedural status Need for vaccination Need for prophylactic vaccination and inoculation against unspecified single disease Pre-existing diabetes mellitus in in second trimester ([facility]) Diabetes mellitus, antepartum Maternal iron deficiency anemia complicating , third trimester ([facility]) 32 weeks gestation of ([facility])- Primary state, incidental Pre-existing diabetes mellitus in in second trimester ([facility]CC) Diabetes mellitus, antepartum Previous section Other postprocedural status Anemia complicating , third trimester ([facility]) Supervision of high risk in third trimester (HCC)- Primary Unspecified high-risk Pre-existing diabetes mellitus in in third trimester ([facility]CC) Diabetes mellitus, antepartum Previous section Other postprocedural status Anemia complicating , third trimester ([facility]) Obesity during ([facility]) * Assessment & Plan Note - Mayra Frey MD - 02/19/2025 1:07 PM EDT Associated Problem(s): Obesity during (HCC) Growth US pending today NST [facility] Diagnosis Supervision of high risk in second trimester ([facility])- Primary Unspecified high-risk Pre-existing diabetes mellitus in in second trimester ([facility]) Diabetes mellitus, antepartum Previous delivery affecting , antepartum (HCC) Previous delivery, antepartum condition or complication 25 weeks gestation of ([facility]) state, incidental Pre-existing diabetes mellitus in in second trimester (HCC)- Primary Diabetes mellitus, antepartum Previous delivery affecting , antepartum (HCC) Previous delivery, antepartum condition or complication Supervision of high risk in third trimester ([facility]) Unspecified high-risk 30 weeks gestation of ([facility])- Primary state, incidental Previous section Other postprocedural status Need for vaccination Need for prophylactic vaccination and inoculation against unspecified single disease Pre-existing diabetes mellitus in in second trimester ([facility]) Diabetes mellitus, antepartum Maternal iron deficiency anemia complicating , third trimester (HCC) 32 weeks gestation of ([facility])- Primary state, incidental Pre-existing diabetes mellitus in in second trimester ([facility]) Diabetes mellitus, antepartum Previous section Other postprocedural status Anemia complicating , third trimester ([facility]) Supervision of high risk in third trimester (HCC)- Primary Unspecified high-risk Pre-existing diabetes mellitus in in third trimester ([facility]) Diabetes mellitus, antepartum Previous section Other postprocedural status Anemia complicating , third trimester ([facility]) Obesity during ([facility]) Insulin controlled gestational diabetes mellitus (GDM) in third trimester ([facility])- Primary documented in this encounter [facility] for referral (narrative)* Diagnostic Procedure Only (Routine) - Authorized Specialty Diagnoses / Procedures Referred By Contac t Referred To Contact [facility] Diagnoses Less than 8 weeks gestation of Procedures NUCHAL TRANSLUCENCY WHI US NUCHAL TRANSLUCENCY 1ST GESTATION Kati Rolle APRN.CNM [address] [place] [address] [address] Referral ID Status Reason Start Date Expiration Date Visits Requested Visits Authorized [id number] Authorized Auto-Generat ed Referral 4 08/03/2025 1 1 [facility] for referral (narrative)* Diagnostic Procedure Only (Routine) - Authorized Specialty Diagnoses / Procedures Referred By Contac t Referred To Contact [facility] Diagnoses Encounter for supervision of other normal in second trimester Procedures OBSTETRIC ULTRASOUND WHI US PREG UTERUS AFTER 1ST TRIMEST GESTATION Melissa Aguilera MD [address] [place] [address] [facility] [place] [address] Referral ID Status Reason Start Date Expiration Date Visits Requested Visits Authorized [id number] Authorized Auto-Generat ed Referral 4 09/11/2025 1 1 [facility] for referral (narrative)* Diagnostic Procedure Only (Routine) - Authorized Specialty Diagnoses / Procedures Referred By Contac t Referred To Contact [facility] Diagnoses 14 weeks gestation of Procedures OBSTETRIC ULTRASOUND WHI US PREG UTERUS AFTER 1ST TRIMEST GESTATION Kati Rolle APRN.CNM [address] [place] [place] [address] [facility] [address] [place] [address] Referral ID Status Reason Start Date Expiration Date Visits Requested Visits Authorized [id number] Authorized Auto-Generat ed Referral 09/17/2025 1 1 [facility] for referral (narrative)* Outpatient Procedure (Routine) - New Request Specialty Diagnoses / Procedures Referred By Contac t Referred To Contact [facility] Diagnoses Pre-existing type 2 diabetes mellitus during in first trimester Pre-existing diabetes mellitus in in second trimester Procedures ECHO Melissa Aguilera MD [address] [place] [address] [facility] [address] [place] [address] Referral ID Status Reason Start Date Expiration Date Visits Requested Visits Authorized [id number] New Request Auto-Generat ed Referral 10/09/2024 10/09/2025 1 1 * Consult, Test, Treat (Routine) - Authorized Specialty Diagnoses / Procedures Referred By Contac t Referred To Contact Endocrinology Diagnoses 17 weeks gestation of Pre-existing type 2 diabetes mellitus during in first trimester Procedures CONSULT TO ENDOCRINOLOGY OFFICE/OUTPATIENT NEW HIGH MDM 60 MINUTES Melissa Aguilera MD [address] [place] [address] aLlito Rocha, DO [address] [place] [address] Referral ID Status Reason Start Date Expiration Date Visits Requested Visits Authorized [id number] Authorized PCP Requested Referral 10/09/2024 10/09/2025 1 1 [facility] Summary Purpose Family History No Family History Records FoundNo Family History Records FoundNo Family History Records FoundNo Family History Records FoundNo Family History Records FoundNo Family History Records FoundNo Family History Records FoundNo Family History Records Found Advance Directives No Advanced Directives Records FoundNo Advanced Directives Records FoundNo Advanced Directives Records FoundNo Advanced Directives Records FoundNo Advanced Directives Records FoundNo Advanced Directives Records FoundNo Advanced Directives Records FoundNo Advanced Directives Records Found Reason for Referral Specialty Diagnoses / Procedures Referred By Contac t Referred To Contact Nutrition Diagnoses Diet controlled gestational diabetes mellitus (GDM) in second trimester Procedures CONSULT TO NUTRITION THERAPY MEDICAL NUTRITION ASSMT&IVNTJ INDIV EACH 15 [place] Elba Khanna APRN.ENVIRONMENTAL SERVICES SPECIALIST [address] [place] [address] Referral ID Status Reason Start Date Expiration Date Visits Requested Visits Authorized [id number] Authorized PCP Requested Referral 4 09/18/2025 1 4 Specialty Diagnoses / Procedures Referred By Contac t Referred To Contact Diagnoses Diet controlled gestational diabetes mellitus (GDM) in second trimester Procedures CONSULT TO DIABETES EDUCATION DSME MEDICAL NUTRITION ASSMT&IVNTJ INDIV EACH 15 [place] MEDICAL NUTRITION ASSMT&IVNTJ INDIV EACH 15 [place] MEDICAL NUTRITION ASSMT&IVNTJ INDIV EACH 15 [place] MEDICAL NUTRITION ASSMT&IVNTJ INDIV EACH 15 [place] Elba Khanna APRN.ENVIRONMENTAL SERVICES SPECIALIST [address] [place] [address] Referral ID Status Reason Start Date Expiration Date Visits Requested Visits Authorized [id number] Authorized PCP Requested Referral 4 09/18/2025 1 1 Specialty Diagnoses / Procedures Referred By Contac t Referred To Contact [facility] Diagnoses Diet controlled gestational diabetes mellitus (GDM) in second trimester Procedures OBSTETRIC ULTRASOUND WHI US PREG UTERUS AFTER 1ST TRIMEST GESTATION Elba Khanna APRN.CNP [address] [place] [address] [facility] [address] [place] [address] Referral ID Status Reason Start Date Expiration Date Visits Requested Visits Authorized [id number] Authorized Auto-Generat ed Referral 4 09/18/2025 5 1 Additional Source Comments INFORMATION SOURCE (unrecogn ized section and content) DATE CREATED AUTHOR 02/25/2020 [facility] DATE CREATED AUTHOR AUTHOR'S ORGANIZ ATION 11/12/2021 [facility] [place] DATE CREATED AUTHOR AUTHOR'S ORGANIZ ATION 05/02/2022 [facility] DATE CREATED AUTHOR AUTHOR'S ORGANIZ ATION 05/18/2024 [facility] DATE CREATED AUTHOR AUTHOR'S ORGANIZ ATION 07/17/2024 [facility] DATE CREATED AUTHOR AUTHOR'S ORGANIZ ATION 11/12/2024 [facility] DATE CREATED AUTHOR AUTHOR'S ORGANIZ ATION 02/17/2025 [facility] DATE CREATED AUTHOR AUTHOR'S ORGANIZ ATION 02/22/2025 [facility] Source Comments (unrecognize d section and content) In the event this informatio n is protected by the Federal Confidentiality of Alcohol and Drug Abuse Patient Records regulations: The Federal rules restrict any use of the information to criminally investigate or prosecute any alcohol or drug abuse patient.[facility] the event this information is protected by the Federal Confidentiality of Alcohol and Drug Abuse Patient Records regulations: The Federal rules restrict any use of the information to criminally investigate or prosecute any alcohol or drug abuse patient.[facility]In the event this information is protected by the Federal Confidentiality of Alcohol and Drug Abuse Patient Records regulations: The Federal rules restrict any use of the information to criminally investigate or prosecute any alcohol or drug abuse patient.[facility]In the event this information is protected by the Federal Confidentiality of Alcohol and Drug Abuse Patient Records regulations: The Federal rules restrict any use of the information to criminally investigate or prosecute any alcohol or drug abuse patient.[facility]In the event this information is protected by the Federal Confidentiality of Alcohol and Drug Abuse Patient Records regulations: The Federal rules restrict any use of the information to criminally investigate or prosecute any alcohol or drug abuse patient.[facility]In the event this information is protected by the Federal Confidentiality of Alcohol and Drug Abuse Patient Records regulations: The Federal rules restrict any use of the information to criminally investigate or prosecute any alcohol or drug abuse patient.[facility]In the event this information is protected by the Federal Confidentiality of Alcohol and Drug Abuse Patient Records regulations: The Federal rules restrict any use of the information to criminally investigate or prosecute any alcohol or drug abuse patient.[facility]In the event this information is protected by the Federal Confidentiality of Alcohol and Drug Abuse Patient Records regulations: The Federal rules restrict any use of the information to criminally investigate or prosecute any alcohol or drug abuse patient.[facility]In the event this information is protected by the Federal Confidentiality of Alcohol and Drug Abuse Patient Records regulations: The Federal rules restrict any use of the information to criminally investigate or prosecute any alcohol or drug abuse patient.[facility]In the event this information is protected by the Federal Confidentiality of Alcohol and Drug Abuse Patient Records regulations: The Federal rules restrict any use of the information to criminally investigate or prosecute any alcohol or drug abuse patient.[facility]In the event this information is protected by the Federal Confidentiality of Alcohol and Drug Abuse Patient Records regulations: The Federal rules restrict any use of the information to criminally investigate or prosecute any alcohol or drug abuse patient.[facility]In the event this information is protected by the Federal Confidentiality of Alcohol and Drug Abuse Patient Records regulations: The Federal rules restrict any use of the information to criminally investigate or prosecute any alcohol or drug abuse patient.[facility]In the event this information is protected by the Federal Confidentiality of Alcohol and Drug Abuse Patient Records regulations: The Federal rules restrict any use of the information to criminally investigate or prosecute any alcohol or drug abuse patient.[facility]In the event this information is protected by the Federal Confidentiality of Alcohol and Drug Abuse Patient Records regulations: The Federal rules restrict any use of the information to criminally investigate or prosecute any alcohol or drug abuse patient.[facility] HospitalIn the event this information is protected by the Federal Confidentiality of Alcohol and Drug Abuse Patient Records regulations: The Federal rules restrict any use of the information to criminally investigate or prosecute any alcohol or drug abuse patient.[facility] HospitalIn the event this information is protected by the Federal Confidentiality of Alcohol and Drug Abuse Patient Records regulations: The Federal rules restrict any use of the information to criminally investigate or prosecute any alcohol or drug abuse patient.[facility] HospitalIn the event this information is protected by the Federal Confidentiality of Alcohol and Drug Abuse Patient Records regulations: The Federal rules restrict any use of the information to criminally investigate or prosecute any alcohol or drug abuse patient.[facility] HospitalIn the event this information is protected by the Federal Confidentiality of Alcohol and Drug Abuse Patient Records regulations: The Federal rules restrict any use of the information to criminally investigate or prosecute any alcohol or drug abuse patient.[facility] HospitalIn the event this information is protected by the Federal Confidentiality of Alcohol and Drug Abuse Patient Records regulations: The Federal rules restrict any use of the information to criminally investigate or prosecute any alcohol or drug abuse patient.[facility] HospitalIn the event this information is protected by the Federal Confidentiality of Alcohol and Drug Abuse Patient Records regulations: The Federal rules restrict any use of the information to criminally investigate or prosecute any alcohol or drug abuse patient.[facility] HospitalIn the event this information is protected by the Federal Confidentiality of Alcohol and Drug Abuse Patient Records regulations: The Federal rules restrict any use of the information to criminally investigate or prosecute any alcohol or drug abuse patient.[facility] HospitalIn the event this information is protected by the Federal Confidentiality of Alcohol and Drug Abuse Patient Records regulations: The Federal rules restrict any use of the information to criminally investigate or prosecute any alcohol or drug abuse patient.[facility] HospitalIn the event this information is protected by the Federal Confidentiality of Alcohol and Drug Abuse Patient Records regulations: The Federal rules restrict any use of the information to criminally investigate or prosecute any alcohol or drug abuse patient.[facility] HospitalIn the event this information is protected by the Federal Confidentiality of Alcohol and Drug Abuse Patient Records regulations: The Federal rules restrict any use of the information to criminally investigate or prosecute any alcohol or drug abuse patient.[facility] HospitalIn the event this information is protected by the Federal Confidentiality of Alcohol and Drug Abuse Patient Records regulations: The Federal rules restrict any use of the information to criminally investigate or prosecute any alcohol or drug abuse patient.[facility] HospitalIn the event this information is protected by the Federal Confidentiality of Alcohol and Drug Abuse Patient Records regulations: The Federal rules restrict any use of the information to criminally investigate or prosecute any alcohol or drug abuse patient.[facility] HospitalIn the event this information is protected by the Federal Confidentiality of Alcohol and Drug Abuse Patient Records regulations: The Federal rules restrict any use of the information to criminally investigate or prosecute any alcohol or drug abuse patient.[facility] HospitalIn the event this information is protected by the Federal Confidentiality of Alcohol and Drug Abuse Patient Records regulations: The Federal rules restrict any use of the information to criminally investigate or prosecute any alcohol or drug abuse patient.[facility] HospitalIn the event this information is protected by the Federal Confidentiality of Alcohol and Drug Abuse Patient Records regulations: The Federal rules restrict any use of the information to criminally investigate or prosecute any alcohol or drug abuse patient.[facility] HospitalIn the event this information is protected by the Federal Confidentiality of Alcohol and Drug Abuse Patient Records regulations: The Federal rules restrict any use of the information to criminally investigate or prosecute any alcohol or drug abuse patient.[facility] HospitalIn the event this information is protected by the Federal Confidentiality of Alcohol and Drug Abuse Patient Records regulations: The Federal rules restrict any use of the information to criminally investigate or prosecute any alcohol or drug abuse patient.[facility] HospitalIn the event this information is protected by the Federal Confidentiality of Alcohol and Drug Abuse Patient Records regulations: The Federal rules restrict any use of the information to criminally investigate or prosecute any alcohol or drug abuse patient.[facility] HospitalIn the event this information is protected by the Federal Confidentiality of Alcohol and Drug Abuse Patient Records regulations: The Federal rules restrict any use of the information to criminally investigate or prosecute any alcohol or drug abuse patient.[facility] HospitalIn the event this information is protected by the Federal Confidentiality of Alcohol and Drug Abuse Patient Records regulations: The Federal rules restrict any use of the information to criminally investigate or prosecute any alcohol or drug abuse patient.[facility] HospitalIn the event this information is protected by the Federal Confidentiality of Alcohol and Drug Abuse Patient Records regulations: The Federal rules restrict any use of the information to criminally investigate or prosecute any alcohol or drug abuse patient.[facility] HospitalIn the event this information is protected by the Federal Confidentiality of Alcohol and Drug Abuse Patient Records regulations: The Federal rules restrict any use of the information to criminally investigate or prosecute any alcohol or drug abuse patient.[facility] HospitalIn the event this information is protected by the Federal Confidentiality of Alcohol and Drug Abuse Patient Records regulations: The Federal rules restrict any use of the information to criminally investigate or prosecute any alcohol or drug abuse patient.[facility] HospitalIn the event this information is protected by the Federal Confidentiality of Alcohol and Drug Abuse Patient Records regulations: The Federal rules restrict any use of the information to criminally investigate or prosecute any alcohol or drug abuse patient.[facility] HospitalIn the event this information is protected by the Federal Confidentiality of Alcohol and Drug Abuse Patient Records regulations: The Federal rules restrict any use of the information to criminally investigate or prosecute any alcohol or drug abuse patient.[facility] HospitalIn the event this information is protected by the Federal Confidentiality of Alcohol and Drug Abuse Patient Records regulations: The Federal rules restrict any use of the information to criminally investigate or prosecute any alcohol or drug abuse patient.[facility] HospitalIn the event this information is protected by the Federal Confidentiality of Alcohol and Drug Abuse Patient Records regulations: The Federal rules restrict any use of the information to criminally investigate or prosecute any alcohol or drug abuse patient.[facility] HospitalIn the event this information is protected by the Federal Confidentiality of Alcohol and Drug Abuse Patient Records regulations: The Federal rules restrict any use of the information to criminally investigate or prosecute any alcohol or drug abuse patient.[facility] HospitalIn the event this information is protected by the Federal Confidentiality of Alcohol and Drug Abuse Patient Records regulations: The Federal rules restrict any use of the information to criminally investigate or prosecute any alcohol or drug abuse patient.[facility] HospitalIn the event this information is protected by the Federal Confidentiality of Alcohol and Drug Abuse Patient Records regulations: The Federal rules restrict any use of the information to criminally investigate or prosecute any alcohol or drug abuse patient.[facility] HospitalIn the event this information is protected by the Federal Confidentiality of Alcohol and Drug Abuse Patient Records regulations: The Federal rules restrict any use of the information to criminally investigate or prosecute any alcohol or drug abuse patient.[facility] HospitalIn the event this information is protected by the Federal Confidentiality of Alcohol and Drug Abuse Patient Records regulations: The Federal rules restrict any use of the information to criminally investigate or prosecute any alcohol or drug abuse patient.[facility] HospitalIn the event this information is protected by the Federal Confidentiality of Alcohol and Drug Abuse Patient Records regulations: The Federal rules restrict any use of the information to criminally investigate or prosecute any alcohol or drug abuse patient.[facility] HospitalIn the event this information is protected by the Federal Confidentiality of Alcohol and Drug Abuse Patient Records regulations: The Federal rules restrict any use of the information to criminally investigate or prosecute any alcohol or drug abuse patient.[facility] HospitalIn the event this information is protected by the Federal Confidentiality of Alcohol and Drug Abuse Patient Records regulations: The Federal rules restrict any use of the information to criminally investigate or prosecute any alcohol or drug abuse patient.[facility] HospitalIn the event this information is protected by the Federal Confidentiality of Alcohol and Drug Abuse Patient Records regulations: The Federal rules restrict any use of the information to criminally investigate or prosecute any alcohol or drug abuse patient.[facility] HospitalIn the event this information is protected by the Federal Confidentiality of Alcohol and Drug Abuse Patient Records regulations: The Federal rules restrict any use of the information to criminally investigate or prosecute any alcohol or drug abuse patient.[facility] HospitalIn the event this information is protected by the Federal Confidentiality of Alcohol and Drug Abuse Patient Records regulations: The Federal rules restrict any use of the information to criminally investigate or prosecute any alcohol or drug abuse patient.[facility] HospitalIn the event this information is protected by the Federal Confidentiality of Alcohol and Drug Abuse Patient Records regulations: The Federal rules restrict any use of the information to criminally investigate or prosecute any alcohol or drug abuse patient.[facility] HospitalIn the event this information is protected by the Federal Confidentiality of Alcohol and Drug Abuse Patient Records regulations: The Federal rules restrict any use of the information to criminally investigate or prosecute any alcohol or drug abuse patient.[facility] HospitalIn the event this information is protected by the Federal Confidentiality of Alcohol and Drug Abuse Patient Records regulations: The Federal rules restrict any use of the information to criminally investigate or prosecute any alcohol or drug abuse patient.[facility] HospitalIn the event this information is protected by the Federal Confidentiality of Alcohol and Drug Abuse Patient Records regulations: The Federal rules restrict any use of the information to criminally investigate or prosecute any alcohol or drug abuse patient.[facility] HospitalIn the event this information is protected by the Federal Confidentiality of Alcohol and Drug Abuse Patient Records regulations: The Federal rules restrict any use of the information to criminally investigate or prosecute any alcohol or drug abuse patient.[facility] HospitalIn the event this information is protected by the Federal Confidentiality of Alcohol and Drug Abuse Patient Records regulations: The Federal rules restrict any use of the information to criminally investigate or prosecute any alcohol or drug abuse patient.[facility] HospitalIn the event this information is protected by the Federal Confidentiality of Alcohol and Drug Abuse Patient Records regulations: The Federal rules restrict any use of the information to criminally investigate or prosecute any alcohol or drug abuse patient.[facility] HospitalIn the event this information is protected by the Federal Confidentiality of Alcohol and Drug Abuse Patient Records regulations: The Federal rules restrict any use of the information to criminally investigate or prosecute any alcohol or drug abuse patient.[facility] HospitalIn the event this information is protected by the Federal Confidentiality of Alcohol and Drug Abuse Patient Records regulations: The Federal rules restrict any use of the information to criminally investigate or prosecute any alcohol or drug abuse patient.[facility] HospitalIn the event this information is protected by the Federal Confidentiality of Alcohol and Drug Abuse Patient Records regulations: The Federal rules restrict any use of the information to criminally investigate or prosecute any alcohol or drug abuse patient.[facility] HospitalIn the event this information is protected by the Federal Confidentiality of Alcohol and Drug Abuse Patient Records regulations: The Federal rules restrict any use of the information to criminally investigate or prosecute any alcohol or drug abuse patient.[facility] HospitalIn the event this information is protected by the Federal Confidentiality of Alcohol and Drug Abuse Patient Records regulations: The Federal rules restrict any use of the information to criminally investigate or prosecute any alcohol or drug abuse patient.[facility] HospitalIn the event this information is protected by the Federal Confidentiality of Alcohol and Drug Abuse Patient Records regulations: The Federal rules restrict any use of the information to criminally investigate or prosecute any alcohol or drug abuse patient.[facility] HospitalIn the event this information is protected by the Federal Confidentiality of Alcohol and Drug Abuse Patient Records regulations: The Federal rules restrict any use of the information to criminally investigate or prosecute any alcohol or drug abuse patient.[facility] HospitalIn the event this information is protected by the Federal Confidentiality of Alcohol and Drug Abuse Patient Records regulations: The Federal rules restrict any use of the information to criminally investigate or prosecute any alcohol or drug abuse patient.[facility] HospitalIn the event this information is protected by the Federal Confidentiality of Alcohol and Drug Abuse Patient Records regulations: The Federal rules restrict any use of the information to criminally investigate or prosecute any alcohol or drug abuse patient.[facility] HospitalIn the event this information is protected by the Federal Confidentiality of Alcohol and Drug Abuse Patient Records regulations: The Federal rules restrict any use of the information to criminally investigate or prosecute any alcohol or drug abuse patient.[facility] HospitalIn the event this information is protected by the Federal Confidentiality of Alcohol and Drug Abuse Patient Records regulations: The Federal rules restrict any use of the information to criminally investigate or prosecute any alcohol or drug abuse patient.[facility] HospitalIn the event this information is protected by the Federal Confidentiality of Alcohol and Drug Abuse Patient Records regulations: The Federal rules restrict any use of the information to criminally investigate or prosecute any alcohol or drug abuse patient.[facility] HospitalIn the event this information is protected by the Federal Confidentiality of Alcohol and Drug Abuse Patient Records regulations: The Federal rules restrict any use of the information to criminally investigate or prosecute any alcohol or drug abuse patient.[facility] HospitalIn the event this information is protected by the Federal Confidentiality of Alcohol and Drug Abuse Patient Records regulations: The Federal rules restrict any use of the information to criminally investigate or prosecute any alcohol or drug abuse patient.[facility] HospitalIn the event this information is protected by the Federal Confidentiality of Alcohol and Drug Abuse Patient Records regulations: The Federal rules restrict any use of the information to criminally investigate or prosecute any alcohol or drug abuse patient.[facility] HospitalIn the event this information is protected by the Federal Confidentiality of Alcohol and Drug Abuse Patient Records regulations: The Federal rules restrict any use of the information to criminally investigate or prosecute any alcohol or drug abuse patient.[facility] the event this information is protected by the Federal Confidentiality of Alcohol and Drug Abuse Patient Records regulations: The Federal rules restrict any use of the information to criminally investigate or prosecute any alcohol or drug abuse patient.[facility] the event this information is protected by the Federal Confidentiality of Alcohol and Drug Abuse Patient Records regulations: The Federal rules restrict any use of the information to criminally investigate or prosecute any alcohol or drug abuse patient.[facility] the event this information is protected by the Federal Confidentiality of Alcohol and Drug Abuse Patient Records regulations: The Federal rules restrict any use of the information to criminally investigate or prosecute any alcohol or drug abuse patient.[facility] Reason for Visit (unrecogniz ed section and content) Reason Comments Chest Congestion Sore Throat Fever The patient states t hat her symptoms started 1 week ago. Reason Comments Sinusitis Drainage/congestionS tarted 1 week ago becoming worse within the last 3 days.OTC:Allergy Med/Mucinex/Tylenol Cold and Sinus Cough Chest Congestion Reason Comments Cough Cough, sinus congest ion, drainage and pressure with ear fullness x 2 weeks. Otc: mucinex, tylenol cold and flu Reason Comments Cough Chest congestion, ch est tightness in chest Fever Headache, bodyaches x 2 days Reason Comments Test Pt requesting blood HCG test x 4 days late Reason Comments Cough Chest congestion, na ernie congestion, fever, sinus pressure, sore throat x 1 week Reason Comments Initial OB Visit Reason Comments PRAF Reason Comments Cough Congestion, sinus pr essure x 3 days Reason Comments Cough Cough, congestion x 1 week and goopy eyes x 3 days Reason Onset Date Comments Care 09/11/2024 Reason Comments US Specialty Diagnoses / Procedures Referred By Contac t Referred To Contact [facility] Diagnoses Less than 8 weeks gestation of Procedures NUCHAL TRANSLUCENCY WHI US NUCHAL TRANSLUCENCY 1ST GESTATION Kati Rolle APRN.CNBoo [address] [place] [address] [facility] [address] [place] [address] Referral ID Status Reason Start Date Expiration Date V isits Requested Visits Authorized [id number] Closed Auto-Generate d Referral 08/03/2024 08/03/2025 1 1 Reason Comments Results Reason Comments Gestational Diabetes Specialty Diagnoses / Procedures Referred By Contac t Referred To Contact Diagnoses Diet controlled gestational diabetes mellitus (GDM) in second trimester Procedures CONSULT TO DIABETES EDUCATION DSME MEDICAL NUTRITION ASSMT&IVNTJ INDIV EACH 15 [place] MEDICAL NUTRITION ASSMT&IVNTJ INDIV EACH 15 [place] MEDICAL NUTRITION ASSMT&IVNTJ INDIV EACH 15 [place] MEDICAL NUTRITION ASSMT&IVNTJ INDIV EACH 15 [place] Elba Khanna APRN.ENVIRONMENTAL SERVICES SPECIALIST [address] [place] [address] Referral ID Status Reason Start Date Expiration Date V isits Requested Visits Authorized [id number] Closed PCP Requested Referral 09/18/2024 09/18/2025 1 1 Specialty Diagnoses / Procedures Referred By Contac t Referred To Contact [facility] Diagnoses 14 weeks gestation of Procedures OBSTETRIC ULTRASOUND WHI US PREG UTERUS AFTER 1ST TRIMEST GESTATION Kati Rolle APRN.CNM [address] [place] [address] [address] Referral ID Status Reason Start Date Expiration Date V isits Requested Visits Authorized [id number] Closed Auto-Generate d Referral 09/17/2024 09/17/2025 1 1 Reason Onset Date Comments Care 10/09/2024 Reason Comments Sinus Problem sinus pressure, drai nage, cough and headache x 9 days Reason Comments Gestational Diabetes Reason Comments Blood Sugar Reading Reason Onset Date Comments Care 11/06/2024 Specialty Diagnoses / Procedures Referred By Contac t Referred To Contact [facility] Diagnoses Encounter for supervision of other normal in second trimester Procedures OBSTETRIC ULTRASOUND WHI US PREG UTERUS AFTER 1ST TRIMEST GESTATION Melissa Aguilera MD [address] [place] [address] Phone: tel: fax:[phone] [address] Referral ID Status Reason Start Date Expiration Date V isits Requested Visits Authorized [id number] Closed Auto-Generate d Referral 09/11/2024 09/11/2025 1 1 Reason Comments Para Operator - Other PRA Specialty Diagnoses / Procedures Referred By Contac t Referred To Contact [facility] Diagnoses Diet controlled gestational diabetes mellitus (GDM) in second trimester Procedures OBSTETRIC ULTRASOUND WHI US PREG UTERUS AFTER 1ST TRIMEST GESTATION Elba Khanna APRN.JASE [address] [place] [address] Phone: tel: fax:[phone] [address] Referral ID Status Reason Start Date Expiration Date V isits Requested Visits Authorized [id number] Closed Auto-Generate d Referral 09/18/2024 09/18/2025 5 1 Reason Onset Date Comments Care 12/03/2024 Reason Comments Breast Pump Reason Onset Date Comments Care 12/25/2024 Specialty Diagnoses / Procedures Referred By Contac t Referred To Contact [facility] Diagnoses Diet controlled gestational diabetes mellitus (GDM) in second trimester (HCC) Procedures OBSTETRIC ULTRASOUND WHI US PREG UTERUS AFTER 1ST TRIMEST GESTATION Elba Khanna APRN.ENVIRONMENTAL SERVICES SPECIALIST [address] [place] [address] Phone: tel: fax:[phone] [address] Reason Comments Blood Management Reason Onset Date Comments Care 01/07/2025 Reason Comments Non-Chemotherapy Treatment Specialty Diagnoses / Procedures Referred By Jaiden t Referred To Contact Diagnoses Maternal iron deficiency anemia complicating , third trimester (HCC) Procedures IRON SUCROSE INJECTION PER 1 MG lAfred Arcos MD [address] [place] [address] Phone: tel: fax:[phone] Alfred Arcos MD [address] [place] [address] Phone: tel: fax:[phone] Referral ID Status Reason Start Date Expiration Date V isits Requested Visits Authorized [id number] Authorized 12/30/2024 09/22/2025 99 99 Reason Comments Follow Up Gestational Diabetes Reason Onset Date Comments Care 01/22/2025 Specialty Diagnoses / Procedures Referred By Jaiden t Referred To Contact [facility] Diagnoses Pre-existing diabetes mellitus in in second trimester (HCC) Procedures OBSTETRIC ULTRASOUND WHI US PREG UTERUS AFTER 1ST TRIMEST 1/ GESTATION Alfred Arcos MD [address] [place] [address] Phone: tel: fax:[phone] [address] Referral ID Status Reason Start Date Expiration Date V isits Requested Visits Authorized [id number] Closed Auto-Generate d Referral 01/22/2025 01/22/2026 6 1 Reason Onset Date Comments Care 01/28/2025 Reason Onset Date Comments Care 02/04/2025 Reason Onset Date Comments Care 02/19/2025 Care Teams (unrecognized sec tion and content) Resource Management Specialist Relationship Specialty Start Date End Date Carla Correia, PAChaloC [address] [place] [address] PCP - General Family Medicine 07/24/24 Resource Management Specialist Relationship Specialty Start Date End Date Calra Correia PA-C [address] [place] [address] PCP - General Family Medicine 07/24/24 Resource Management Specialist Relationship Specialty Start Date End Date Carla Correia PA-C [address] [place] [address] PCP - General Family Medicine 07/24/24 Resource Management Specialist Relationship Specialty Start Date End Date Carla Correia PA-C [address] [place] [address] PCP - General Family Medicine 07/24/24 Resource Management Specialist Relationship Specialty Start Date End Date Carla Correia PA-C [address] [place] [address] PCP - General Family Medicine 07/24/24 Resource Management Specialist Relationship Specialty Start Date End Date Carla Correia PA-C [address] [place] [address] PCP - General Family Medicine 07/24/24 Resource Management Specialist Relationship Specialty Start Date End Date Carla Correia PA-C [address] [place] [address] PCP - General Family Medicine 07/24/24 Resource Management Specialist Relationship Specialty Start Date End Date Carla Correia PA-C [address] [place] [address] PCP - General Family Medicine 07/24/24 Resource Management Specialist Relationship Specialty Start Date End Date Carla Correia PA-C [address] [place] [address] PCP - General Family Medicine 07/24/24 Resource Management Specialist Relationship Specialty Start Date End Date Carla Correia PA-C [address] [place] [address] PCP - General Family Medicine 07/24/24 Resource Management Specialist Relationship Specialty Start Date End Date Carla Correia PA-C [address] [place] [address] PCP - General Family Medicine 07/24/24 Resource Management Specialist Relationship Specialty Start Date End Date Carla Correia PA-C [address] [place] [address] PCP - General Family Medicine 07/24/24 Resource Management Specialist Relationship Specialty Start Date End Date Carla Correia PA-C [address] [place] [address] PCP - General Family Medicine 07/24/24 Resource Management Specialist Relationship Specialty Start Date End Date Carla Correia PA-C [address] [place] [address] PCP - General Family Medicine 07/24/24 Resource Management Specialist Relationship Specialty Start Date End Date Carla Correia PA-C [address] [place] [address] PCP - General Family Medicine 07/24/24 Resource Management Specialist Relationship Specialty Start Date End Date Carla Correia PA-C [address] [place] [address] PCP - General Family Medicine 07/24/24 Resource Management Specialist Relationship Specialty Start Date End Date Carla Correia PA-C [address] [place] [address] PCP - General Family Medicine 07/24/24 Resource Management Specialist Relationship Specialty Start Date End Date Carla Correia PA-C [address] [place] [address] PCP - General Family Medicine 07/24/24 Resource Management Specialist Relationship Specialty Start Date End Date Carla Correia PA-C [address] [place] [address] PCP - General Family Medicine 07/24/24 Resource Management Specialist Relationship Specialty Start Date End Date Carla Correia PA-C [address] [place] [address] PCP - General Family Medicine 07/24/24 Resource Management Specialist Relationship Specialty Start Date End Date Carla Correia PA-C [address] [place] [address] PCP - General Family Medicine 07/24/24 Resource Management Specialist Relationship Specialty Start Date End Date Carla Correia PA-C [address] [place] [address] PCP - General Family Medicine 07/24/24 Resource Management Specialist Relationship Specialty Start Date End Date Carla Correia PA-C [address] [place] [address] PCP - General Family Medicine 07/24/24 Resource Management Specialist Relationship Specialty Start Date End Date Carla Correia PA-C [address] [place] [address] PCP - General Family Medicine 07/24/24 Resource Management Specialist Relationship Specialty Start Date End Date Carla Correia PA-C [address] [place] [address] PCP - General Family Medicine 07/24/24 Resource Management Specialist Relationship Specialty Start Date End Date Carla Correia PA-C [address] [place] [address] PCP - General Family Medicine 07/24/24 Resource Management Specialist Relationship Specialty Start Date End Date Carla Correia PA-C [address] [place] [address] PCP - General Family Medicine 07/24/24 Resource Management Specialist Relationship Specialty Start Date End Date Carla Correia PA-C [address] [place] [address] PCP - General Family Medicine 07/24/24 Resource Management Specialist Relationship Specialty Start Date End Date Carla Correia PA-C [address] [place] [address] PCP - General Family Medicine 07/24/24 Resource Management Specialist Relationship Specialty Start Date End Date Carla Correia PA-C [address] [place] [address] PCP - General Family Medicine 07/24/24 Resource Management Specialist Relationship Specialty Start Date End Date Carla Correia PA-C [address] [place] [address] PCP - General Family Medicine 07/24/24 Resource Management Specialist Relationship Specialty Start Date End Date Carla Correia PA-C [address] [place] [address] PCP - General Family Medicine 07/24/24 Resource Management Specialist Relationship Specialty Start Date End Date Carla Correia PA-C [address] [place] [address] PCP - General Family Medicine 07/24/24 Resource Management Specialist Relationship Specialty Start Date End Date Carla Correia PA-C [address] [place] [address] PCP - General Family Medicine 07/24/24 Resource Management Specialist Relationship Specialty Start Date End Date Carla Correia PA-C [address] [place] [address] PCP - General Family Medicine 07/24/24 Resource Management Specialist Relationship Specialty Start Date End Date Carla Correia PA-C [address] [place] [address] PCP - General Family Medicine 07/24/24 Resource Management Specialist Relationship Specialty Start Date End Date Carla Correia PA-C [address] [place] [address] PCP - General Family Medicine 07/24/24 Resource Management Specialist Relationship Specialty Start Date End Date Carla Correia PA-C [address] [place] [address] PCP - General Family Medicine 07/24/24 Resource Management Specialist Relationship Specialty Start Date End Date Carla Correia PA-C [address] [place] [address] PCP - General Family Medicine 07/24/24 Resource Management Specialist Relationship Specialty Start Date End Date Carla Correia PA-C [address] [place] [address] PCP - General Family Medicine 07/24/24 Resource Management Specialist Relationship Specialty Start Date End Date Carla Correia PA-C [address] [place] [address] PCP - General Family Medicine 07/24/24 Resource Management Specialist Relationship Specialty Start Date End Date Carla Correia PA-C [address] [place] [address] PCP - General Family Medicine 07/24/24 Resource Management Specialist Relationship Specialty Start Date End Date Carla Correia PA-C [address] [facility] [address] [place] [address] PCP - [facility] 07/24/24 Resource Management Specialist Relationship Specialty Start Date End Date Carla Correia PA-C [address] [facility] [address] [place] [address] PCP - [facility] 07/24/24 FOR RECORDS PERTAINING TO PATIENTS WHO ARE OR HAVE BEEN ENROLLED IN A CHEMICAL DEPENDENCY/SUBSTANCEABUSE PROGRAM, SOME INFORMATION MAY BE OMITTED. This clinical summary was aggregated from multiple sources. Caution should be exercised in using it in the provision of clinical care. This summary normalizes information from multiple sources, and as a consequence, information in this document may materially change the coding, format and clinical context of patient data. In addition, data may be omitted in some cases. CLINICAL DECISIONS SHOULD BE BASED ON THE PRIMARY CLINICAL RECORDS. [facility]. provides no warranty or guarantee of the accuracy or completeness of information in this document.
== END 2025-02-24 20:00 | disposition home or self-care (01) ==
LOC: WPOUT 16:29 → WP 16:30
PROVIDERS: Referring Provider Obstetrics & Gynecology; Visit Provider Obstetrics & Gynecology
DX: O26.893 Other specified pregnancy related conditions, third trimester (principal); R10.9 Unspecified abdominal pain; R51.9 Headache, unspecified; O34.219 Maternal care for unspecified type scar from previous cesarean delivery; Z3A.37 37 weeks gestation of pregnancy
CPT/HCPCS: 96360; 59025; 59050; 81001; 82962; 99221; G0378

== ENCOUNTER 2025-03-01 11:05 | Outpatient (CLI) | payer MEDICAID, SELFPAY ==
[2025-03-01 11:21] VITALS: PULSE 88; O2SAT 97
[2025-03-01 11:22] VITALS: BP 114/55; PULSE 88; RESP 16; TEMP 37.1
[2025-03-01 11:30] VITALS: BMI 40.9
[2025-03-01 12:05] LABS: ROM Internal Control Test YES-OK TO RESULT pt. (Internal QC); ROM Patient Test Negative (Negative)
[2025-03-01 12:06] LABS: Record Kit Lot#, ROM+ K3358
--- NOTE | 2025-03-01 13:34 | OB.TRI.HP_ITS ---
HPI - General General Date of Service: 03/01/25 HPI Narrative KATIE RUIZ, is a 24 F @ 37.5 weeks who presents c/o possible SROM PFSH PFSH Home Medications ?Medication ?Instructions ?Recorded ?Last Taken ?Type aspirin 81 mg tablet,delayed 81 mg PO DAILY 02/24/25 0 02/22/25 20:00 History release 81 mg citalopram 20 mg tablet 20 mg PO DAILY 02/24/25 06/0 11/17 20:00 History 20 mg albuterol sulfate 90 mcg/actuation 2 puff inhalation Q 4H PRN PRN 03/01/25 Unknown History aerosol inhaler asthma fluticasone propionate 50 2 spray intranasal DAILY 06/17 Unknown History mcg/actuation nasal spray,suspension Allergy/AdvReac Type Severity Reaction Status Date / Time cephalexin (From Keflex) Allergy Mild Rash Verified 03/01/25 11:27 Social History Smoking Status: Never smoker NST FHR Rate Baby A Baseline: 130s Variability:: Moderate Accelerations:: 15 x 15 Decelerations:: None NST Reactive:: Yes FHR Category:: Category I Uterine Activity:: irregular Assessment & Plan (1) History of delivery affecting : (2) 37 weeks gestation of : (3) Pre-existing diabetes mellitus affecting in third trimester, antepartum: (4) False labor: PLAN: Plan @ 37.5 weeks- r/o ROM, membranes intact, false labor 1) NST reactive cat 1- well being established 2) ROM plus was negative for rupture 3) scheduled CS on 03/05- return sooner if concerns
[2025-03-01 17:36] VITALS: PULSE 80; O2SAT 97
[2025-03-01 17:37] VITALS: BP 127/60; PULSE 82; RESP 16; TEMP 37.1
[2025-03-01 18:22] LABS: ROM Internal Control Test YES-OK TO RESULT pt. (Internal QC); ROM Patient Test Negative (Negative)
[2025-03-01 18:24] LABS: Record Kit Lot#, ROM+ K3358
[2025-03-01 19:35] VITALS: BP 114/69; PULSE 75
[2025-03-01 19:36] VITALS: RESP 16; TEMP 36.6
[2025-03-01 19:36] LABS: Color, Urine Straw (Yellow); Glucose, Dipstick Normal (Normal); Ketone-Dipstick Negative (Negative); Leukocyte Esterase-Dipstick Negative /ul (Negative); Nitrite-Dipstick Negative (Negative); Occult Blood-Urine Negative /ul (Negative); Protein-Dipstick Negative (Negative); Urine Bilirubin Dipstick Negative (Negative); Urine Clarity Clear (Clear); Urine Urobilinogen Normal (Normal)
[2025-03-01 19:58] LABS: Bacteria 1+ /hpf (None Seen); Mucous, Urine 1+ /hpf (<or=2+); Red Blood Cells-Urine 0-5 SEEN /hpf (0-5); Squamous Epithelial Cells - UA 0-5 SEEN /hpf (5-10); White Blood Cells 0-5 SEEN /hpf (0-5)
== END 2025-03-01 19:53 | disposition home or self-care (01) ==
LOC: WPOUT 11:09 → WP 17:29
PROVIDERS: Referring Provider Obstetrics & Gynecology; Visit Provider Obstetrics & Gynecology
DX: O47.1 False labor at or after 37 completed weeks of gestation (principal); O24.113 Pre-existing type 2 diabetes mellitus, in pregnancy, third trimester; O34.219 Maternal care for unspecified type scar from previous cesarean delivery; Z3A.37 37 weeks gestation of pregnancy
CPT/HCPCS: 59025; 59050; 81001; 84112; 87086; 99221; G0378

== ENCOUNTER 2025-03-05 05:49 | Inpatient (IN) | payer MEDICAID, SELFPAY ==
--- NOTE | 2025-03-01 08:37 | PCM.HP.BLA ---
History and Physical Date of Admission: 03/05/25 Expand All Collapse All Pre-Op History and Physical HPI: The patient is a 24 year old female presenting for pre-operative visit. She is scheduled for , for repeat elective cs at 38 weeks- type 2 DM, obesity, h/o CS on 03/05/25. Procedure discussed along with risks, benefits and complications. Other alternatives discussed for management. Consent form signed? Yes. PAST MEDICAL HISTORY PAST MEDICAL HISTORY Diagnosis Date ? Asthma (HCC) ? Bipolar PAST SURGICAL HISTORY PAST SURGICAL HISTORY Procedure Laterality Date ? SECTION HX 07/08/2020 primary d/t Gestational diabetes- suspected LGA ? TONSILLECTOMY & ADENOIDECTOMY <AGE 11 2005 CURRENT MEDICATIONS Current Outpatient Medications Medication Sig Dispense Refill ? insulin NPH (HUMULIN N NPH INSULIN KWIKPEN) 100 unit/mL (3 mL) injection pen 32 units at bedtime 5 each 11 ? metoclopramide HCl (REGLAN) 5 mg tablet Take 1 tablet by mouth four times a day as needed (headache, nausea). 30 tablet 0 ? insulin lispro (HUMALOG KWIKPEN) 100 unit/mL 5-10-10 units prior to meals + scale upto 55 units/day . 10 each 11 ? diphenhydrAMINE (UNISOM SLEEPMINIS) 25 mg capsule Take 1 capsule by mouth at bedtime as needed. 48 capsule 0 ? ferrous sulfate 325 mg (65 mg iron) tablet Take 1 tablet by mouth every other day. ? famotidine (PEPCID) 20 mg tablet Take 1 tablet by mouth two times a day. 60 tablet 5 ? Insulin Independence, Disposable, (PEN NEEDLE) 32 gauge x 5/32 Use to inject insulin up to 4 times per day. 100 Each 5 ? Blood-Glucose Meter Use as directed to check glucose levels up to seven times daily. 1 Each 0 ? blood sugar diagnostic test strip Use as directed to check glucose levels up to seven times daily. 200 Strip 8 ? Lancets Use as directed to check glucose levels up to seven times daily. 200 Each 8 ? alcohol swabs (ALCOHOL PREP PADS) Use as directed to check glucose levels up to seven times daily. 200 Each 8 ? fluticasone (FLONASE) 50 mcg/actuation nasal spray Use 2 Sprays in each nostril once daily. Rinse mouth after use. 1 Each 0 ? aspirin, enteric coated (ECOTRIN LOW STRENGTH) 81 mg EC tablet Take 1 tablet by mouth once daily. 90 tablet 3 ? citalopram (CELEXA) 20 mg tablet Take 20 mg by mouth once daily. ? no115/iron/folic acid ( 19 ORAL) Take 1 tablet by mouth once daily. ? albuterol HFA (PROVENTIL HFA, VENTOLIN HFA) 90 mcg/actuation inhaler Inhale 2 Puffs as instructed every 4 hours as needed for wheezing/shortness of breath. 8 g 0 No current facility-administered medications for this visit. ALLERGIES: Cephalexin PERSONAL HISTORY: SOCIAL HISTORY Social History Tobacco Use ? Smoking status: Never ? Smokeless tobacco: Never Vaping Use ? Vaping status: Former Substance Use Topics ? Alcohol use: Not Currently ? Drug use: Never FAMILY HISTORY: FAMILY HISTORY FAMILY HISTORY Problem Relation Age of Onset ? No Known Problems Sister ? No Known Problems Brother ? Diabetes Maternal Grandfather REVIEW OF SYMPTOMS: negative except as noted above PHYSICAL EXAMINATION: VITALS: Last menstrual period 06/10/2024. GENERAL: The patient is well nourished, well hydrated in no acute distress. , The patient is oriented to time, place, and person. NECK: full range of motion Abd: gravid, non tender IMPRESSION: 24yo with h/o CS, Type 2 Dm, Obesity- scheduled for CS PLAN: Repeat cs at 38 weeks Pt has been counseled on risks/benefits and alternatives of surgery including but not limited to anesthesia, bleeding, infection, injury to pelvic structures including bowel, bladder, ureters and vessels. Pt wishes to proceed with surgery at this time. Risk of hemorrhage reviewed Pre and post op instructions reviewed I have reviewed and updated past medical and surgical history, medications and allergies Mayra Vincent MD Routine Office Visit on 02/19/2025 Note viewed by patient
[2025-03-05] VITALS (22 sets, daily range): BP systolic 91–119; BP diastolic 46–80; PULSE 64–84; RESP 10–20; TEMP 36.1–36.7; O2SAT 93–966; BMI 41.3
--- OUTSIDE RECORDS SUMMARY | 2025-03-05 05:30 | XMS RPT_ITS | CCD ---
Author Organization [facility] CliniSyal Care Team Providers Care Resident Advisor Name Role Phone Unavailable Primary Care Provider UnavailRICCARDO Kurtz Attending Unavailable SELF Referring Unavailable ARIELLE ARIAS Attending Unavailable Unavailable Primary Care Provider UnavailDESTINI Morfin CNP Referring Unavailable DESTINI GRACE CNP Consulting Unavailable HUMA FARFAN DO Attending Unavailable HUMA FARFAN DO Primary Care Unavailable HUMA FARFAN DO Admitting Unavailable PROVIDER, UNKNOWN Consulting Unavailable PROVIDER, UNKNOWN Consulting Unavailable ARCENIO DINERO Attending Unavailable ARCENIO DINERO Primary Care Unavailable ACRENIO DINERO Admitting Unavailable DESTINI GRACE CNP Consulting Unavailable PROVIDER, UNKNOWN Consulting Unavailable PROVIDER, UNKNOWN Consulting Unavailable Carla Correia PA-C Primary Care Provider [phone] CARLA CORREIA Primary Care Unavailable MELISSA AGUILERA Referring Unavailable EDIE MAYER Attending Unavailable CARLA CORREIA Primary Care Unavailable Care Physician, No Primary Primary Care Provider Unavailable Tutu NICOLAS, Dr. Nunez Attending Provid er Dr. Mayra Cam MD Referring Provid er Mayra Cam Attending Unavail able Mayra Cam Referring Unavail able Care Physician, No Primary Primary Care Unava ilable Jay Alvarez Attending Unavailable Care Physician, No Primary Primary Care Unava ilable Lonnie Kumari Attending Unavailabl e Care Physician, No Primary Primary Care Unava ilable Mayra Cam Admitting Unavail able Mayra Cam Attending Unavail able Care Physician, No Primary Primary Care Unava ilable Mayra Cam Attending Unavail able Mayra Cam Referring Unavail able Care Physician, No Primary Primary Care Unava ilable ALLERTON, CARLA D Primary Care Unavailable LALITO ROCHA Attending Unavailable ALLERTON, CARLA D Primary Care Unavailable MELISSA AGUILERA Referring Unavailable ALLERTON, CARLA D Primary Care Unavailable ALFRED ARCOS Attending Unavailable ALLERTON, CARLA D Primary Care Unavailable ALLERTON, CARLA D Primary Care Unavailable MAYRA FREY Attending Unavail able ALLERTON, CARLA D Primary Care Unavailable LALITO ROCHA Attending Unavailable ALLERTON, CARLA D Primary Care Unavailable LALITO ROCHA Attending Unavailable ALLERTON, CARLA D Primary Care Unavailable MELISSA AGUILERA Attending Unavailable ALLERTON, CARLA D Primary Care Unavailable GEE CARLIN Referring Unavailable ALLERTON, CARLA D Primary Care Unavailable ALFRED ARCOS Referring Unavailable ALLERTON, CARLA D Primary Care Unavailable ELBA KHANNA Referring Unavailable ALLERTON, CARLA D Primary Care Unavailable ALFRED ARCOS Attending Unavailable ELBA KHANNA Referring Unavailable ALLERTON, CARLA D Primary Care Unavailable PLOTKATI CASTLE Referring Unavailable ALLERTON, CARLA D Primary Care Unavailable KATI ROLLE Referring Unavailable ALLERTON, CARLA D Primary Care Unavailable ELBA KHANNA Referring Unavailable ALLERTON, CARLA D Primary Care Unavailable ALFRED ARCOS Attending Unavailable HAELBA HORTON Referring Unavailable ALLERTON, CARLA D Primary Care Unavailable KATI ROLLE Referring Unavailable ALLERTON, CARLA D Primary Care Unavailable ALFRED ARCOS Referring Unavailable ALLERTON, CARLA D Primary Care Unavailable ALFRED ARCOS Referring Unavailable ALLERTON, CARLA D Primary Care Unavailable KATI ROLLE Attending Unavailable ALLERTON, CARLA D Primary Care Unavailable MELISSA AGUILERA Attending Unavailable ALLERTON, CARLA D Primary Care Unavailable ALFRED ARCOS Referring Unavailable ALLERTON, CARLA D Primary Care Unavailable WOODY BASS Attending Unavailable ALLERTON, CARLA D Primary Care Unavailable ALFRED ARCOS Referring Unavailable ALLERTON, CARLA D Primary Care Unavailable ALFRED ARCOS Attending Unavailable ALFRED ARCOS Referring Unavailable ALLERTON, CARLA D Primary Care Unavailable ALLERTON, CARLA D Primary Care Unavailable ALLERTON, CARLA D Primary Care Unavailable PLOTKATI CASTLE Referring Unavailable ALLERTON, CARLA D Primary Care Unavailable HAURY, ELBA Referring Unavailable ALLERTON, CARLA D Primary Care Unavailable YONG MEDEROS Referring Unavailable ALLERTON, CARLA D Primary Care Unavailable HAURY, ELBA Referring Unavailable HILLS, CARLA D Primary Care Unavailable ALFRED ARCOS Attending Unavailable HAURY, ELBA Referring Unavailable HILLS, CARLA D Primary Care Unavailable JOSSELYN, KARMON Referring Unavailable HILLS, CARLA D Primary Care Unavailable JOSSELYN, KARTRACI Attending Unavailable HILLS, CARLA D Primary Care Unavailable ARLEEN ARCOS Referring Unavailable JOSSELYN, KARMON Referring Unavailable HILLS, CARLA D Primary Care Unavailable JOSSELYN, KARMON Referring Unavailable HILLS, CARLA D Primary Care Unavailable JOSSELYN, KARMON Referring Unavailable HILLS, CARLA D Primary Care Unavailable JOSSELYN, KARMON Referring Unavailable HILLS, CARLA D Primary Care Unavailable LALITO ROCHA Attending Unavailable HILLS, CARLA D Primary Care Unavailable HAURY, ELBA Referring Unavailable HILLS, CARLA D Primary Care Unavailable JOSSELYN, KARMON Referring Unavailable HILLS, CARLA D Primary Care Unavailable JOSSELYN, KARMON Referring Unavailable HILLS, CARLA D Primary Care Unavailable JOSSELYN, KARMON Referring Unavailable HILLS, CARLA D Primary Care Unavailable ALFRED ARCOS Attending Unavailable JOSSELYN, KARMON Referring Unavailable HILLS, CARLA D Primary Care Unavailable JOSSELYN, KARMON Referring Unavailable HILLS, CARLA D Primary Care Unavailable MELISSA AGUILERA Attending Unavailable JOSSELYN, KARMON Referring Unavailable HILLS, CARLA D Primary Care Unavailable NADIAMELISSA MAY Referring Unavailable HILLS, CARLA D Primary Care Unavailable GEE CARLIN Attending Unavailable Allergies Allergy Classification Reported Allergen(s) Allergy Type Date of Onset Reaction(s) Facility (20 sources) Cephalexin; Translations: [CEPHALEXIN] Drug Allergy 05-01-2022 [facility] (1 source) Cephalexin Drug Allergy [facility] (1 source) Cephalexin Drug Allergy 03-01-2025 [facility] Repository Medications Current Medications Medication Drug Class(es) Dates Sig (Normalized) Sig (Original) [id number] 200 actuat albuterol 0.09 mg/actuat metered dose inhaler (20 sources) beta2-Adrenergic Agonist Start: 03-01-2025 Albuterol Sulfate 90 mcg/actuation HFA aerosol inhaler Active 2 NMA INHALATION EVERY 4 HOURS NEEDED as needed for asthma March 01, 2025 12:00am Start: 05-17-2024 take 2 puff(s) by in halation every four hours as needed for wheezing albuterol HFA (PROVENTIL HFA, VENTOLIN HFA) 90 mcg/actuation inhaler Indications: Bronchitis Inhale 2 Puffs as instructed every 4 hours as needed for wheezing/shortness of breath. 8 g 05/17/2024 Active Start: [...] Comment on above: Take 1 tablet by zuly twice daily for 10 days. aspirin 81 mg delayed release oral tablet (20 sources) Platelet Aggregation Inhibitor, Nonsteroidal Anti-inflammatory Drug Start: take 1 tablet by mouth once daily aspirin, enteric coated (ECOTRIN LOW STRENGTH) 81 mg EC tablet Indications: with uncertain dates in first trimester ([facility]) , Previous delivery affecting , antepartum ([facility]) Take 1 tablet by mouth once daily. 90 tablet 3 08/03/2024 Active benzonatate 100 mg oral capsule (1 source) Non-narcotic Antitussive Start: End: take 1 capsule by mouth three times daily as needed benzonatate (TESSALON PERLES) 100 mg capsule Indications: Acute cough Take 1 capsule by mouth three times a day as needed for up to 7 days. 21 capsule 06/19/2024 06/26/2024 Active Blood-Glucose Meter (20 sources) Start: Blood-Glucose Meter Indications: Diet controlled gestational diabetes mellitus (GDM) in second trimester ([facility]) Use as directed to check glucose levels [...] dose nasal spray (20 sources) Corticosteroid Start: 03-01-2025 Fluticasone Propionate 50 mcg/actuation spray,suspension Active 2 NMA INTRANASAL DAILY March 01, 2025 12:00am Start: 08-10-2024 take 2 spray(s) by out once daily fluticasone (FLONASE) 50 mcg/actuation nasal spray Indications: URI, acute Use 2 Sprays in each nostril once daily. Rinse mouth after use. 1 Each 08/10/2024 Active Start: 03-23-2024 End: 07-24-2024 take 1 spray(s) nasal route once daily fluticasone (FLONASE ALLERGY RELIEF) 50 mcg/actuation nasal spray Indications: Acute non-recurrent frontal sinusitis Use 1 [place] in each nostril once daily. 1 Each [...] 09/18/2024 Active metoclopramide 5 mg oral tablet (11 sources) Dopamine-2 Receptor Antagonist Start: 02-04-2025 take 1 tablet by mouth every six hours as needed metoclopramide HCl (REGLAN) 5 mg tablet Take 1 tablet by mouth four times a day as needed (headache, nausea). 30 tablet 02/04/2025 Active polymyxin b 49506 unt/ml / trimethoprim 1 mg/ml ophthalmic solution [...] on above: TAKE 1 TABLET BY ZULY TH THREE TIMES DAILY FOR ANXIETY DULoxetine 60 [...] , second trimester] Onset: 09-18-2024 10-09-2024 Chronic Early or threatened labor (3 sources) False labor; Translations: [False labor, unspecified] Onset: 03-01-2025 03-01-2025 Episodic Headache; including migraine (1 source) Headache; [...] disorder, recurrent, moderate] Onset: 07-11-2024 07-11-2024 Chronic Nausea and vomiting (3 sources) Nausea; Translations: [Nausea] 10-15-2024 Episodic Other complications of ; puerperium affecting management [...] Onset: 09-15-2024 09-15-2024 Chronic Other complications of (2 sources) Anemia complicating , third trimester; Translations: [Anemia complicating , third trimester (HCC)] Onset: 12-30-2024 Chronic Other complications of (1 source) Obesity complicating , unspecified trimester; Translations: [Obesity during (HCC)] Onset: 08-03-2024 Chronic Other complications of (20 sources) High risk ; Translations: [Supervision of high risk , unspecified, first trimester] Onset: 08-03-2024 08-03-2024 Episodic Other complications of (7 sources) Headache; Translations: [Other specified related conditions, third trimester] 02-04-2025 Episodic Other complications of (3 sources) Right lower quadrant pain; Translations: [Other specified related conditions, second trimester] 10-15-2024 Episodic Other complications of (6 sources) Uterine contractions problem; Translations: [Other specified related conditions, unspecified trimester] 02-24-2025 Episodic Other complications of (2 sources) Other specified related conditions, third trimester; Translations: [Other specified related conditions, third trimester] Onset: 02-04-2025 Episodic Other complications of (1 source) RhD negative; Translations: [Other specified related conditions, unspecified trimester] 03-02-2025 Episodic Other complications of (1 source) Other specified related conditions, unspecified trimester; Translations: [Rh negative state in antepartum period (HCC)] Onset: 03-02-2025 Episodic Other complications of (1 source) Supervision of high risk , unspecified, third trimester; Translations: [Supervision of high risk in third trimester (HCC)] Onset: 02-19-2025 Episodic Other complications of (1 source) Supervision of high risk , unspecified, second trimester; Translations: [Supervision of high risk in second trimester (HCC)] Onset: 12-25-2024 Episodic Other lower respiratory disease [...] left ear] Onset: 03-23-2024 03-23-2024 Episodic Previous (3 sources) Maternal care for unspecified type scar from previous delivery; Translations: [Maternal care for unspecified type scar from previous delivery] Onset: 09-11-2024 Episodic Residual codes; unclassified (1 [...] of ] 02-04-2025 Episodic Residual codes; unclassified (9 sources) Gestation period, 37 weeks; Translations: [37 weeks gestation of ] 02-24-2025 Episodic Residual codes; unclassified (2 sources) 37 weeks gestation of ; Translations: [37 weeks gestation of ] Onset: 02-26-2025 Episodic Residual codes; unclassified (1 source) Unspecified blood type, Rh negative; Translations: [Rh negative state in antepartum period (HCC)] Onset: 03-02-2025 Episodic Residual codes; unclassified (1 source) History of uterine scar from previous surgery; Translations: [Previous section] Onset: 02-19-2025 Episodic Residual codes; unclassified (1 source) 35 weeks gestation of ; Translations: [35 weeks gestation of (HCC)] Onset: 02-11-2025 Episodic Residual codes; unclassified (1 source) 34 weeks gestation of ; Translations: [34 weeks gestation of (HCC)] Onset: 02-04-2025 Episodic Residual codes; unclassified (1 source) 33 weeks gestation of ; Translations: [33 weeks gestation of (HCC)] Onset: 01-28-2025 Episodic Residual codes; unclassified (1 source) 32 weeks gestation of ; Translations: [32 weeks gestation of ([facility])] Onset: 01-22-2025 Episodic Residual codes; unclassified (1 source) 30 weeks gestation of ; Translations: [30 weeks gestation of ([facility])] Onset: 01-07-2025 Episodic Residual codes; unclassified (1 source) 25 weeks gestation of ; Translations: [25 weeks gestation of ([facility])] Onset: 12-25-2024 Episodic Unclassified (20 sources) [facility] [...] glucose] Onset: 09-15-2024 Resolved: 11-06-2024 09-15-2024 Episodic Diabetes or abnormal glucose tolerance complicating ; childbirth; or the puerperium (20 sources) History of gestational diabetes mellitus; Translations: [Personal history of gestational diabetes] Onset: 08-03-2024 Resolved: 11-06-2024 08-03-2024 Episodic Genitourinary symptoms and ill-defined conditions (1 [...] Test Name Value Interpretation Reference Range Facility URINE OB DIP B/Oon Glucose Ql (U) Negative Neg mg/dL [facility] Interpretation and review of laboratory results Normal [facility] Protein.monoclonal (U) [Mass/Vol] Negative Neg mg/dL [facility] (ROM) Rupture Of Membraneson 03-01-2025 ROM Negative Normal Negative [facility] Comment on above: Result Comment: Amni otic fluid not present indicates No Rupture of Membranes at time of specimen collection. Performed By: #### L 400.0001 #### [facility] [address] [place], [address] ROM Negative Normal Negative [facility] Comment on above: Result Comment: Amni otic fluid not present indicates No Rupture of Membranes at time of specimen collection. Performed By: #### L 205.1000 #### [facility] [address] [place], [address] Bilirubin Test strip Ql (U)O rdered By: Mayra Cam on 03-01-2025 Bilirubin Ql (U) Negative Negative [facility] CNPNon 03-01-2025 CNPN Telephone (OBGYWM) ----- VAL RUIZ ([id number]) 2000 F Date Time Provider Department 03/01/25 MAYRA FREY OBGYWM During your visit today, we recorded the following information about you: Melissa Trimble RN 03/01/2025 10:25 AM Signed 37w5d Patient called. States she began leaking fluid at 10am and continues to do so. Clear fluid per patient. No vaginal bleeding. No contractions. Mild cramping. Good FM. Patient is scheduled for a C/S on Saturday. Recommended patient go to [facility] since she continues to leak. [facility] notified. Updated [facility] faxed. Patient will arrive in 40 minutes. NAZ Parson Deidre, MD 03/01/2025 10:50 AM Signed Noted Melissa Trimble RN 03/01/2025 4:00 PM Signed Patient called. States that [facility] around [facility]. Not ruptured. Shortly after getting home she put on a pad and continues to leak a small amount of fluid. Clear with no odor. Possibly a slight increase in her cramping, but not by much patient said. Asking if she should go back for evaluation as recommended at the hospital if she continued to leak. She asked if she should go to [place] for a swab to rule out rupture since they are closer. Advised they would keep her if she was ruptured. She does not want to deliver there. What do you recommend? NAZ Parson Deidre, MD 03/01/2025 4:12 PM Signed She can come back to [place] if she wants to go to [facility] b/c it is closer she can go there but if she is ruptured she would likely be delivered there. Edel Rios RN 03/01/2025 4:17 PM Signed Patient notified and voiced understanding. Patient states she will go to [facility]. [facility] called and notified. Edel Rios RN Allergies As of Date: 03/01/2025 Noted Allergy Reaction CEPHALEXIN 05/01/2022 2 - Rash Date Reviewed: 02/26/2025 Reviewed by: Irasema Navarro MA - Fully Assessed Reason for Visit: Possible SROM. C/S 03/05 [Other] Prescriptions as of 03/01/2025 - insulin NPH (HUMULIN N NPH INSULIN [...] mouth two times a day. - Insulin [place], Disposable, (PEN NEEDLE) 32 gauge x 5/32 [...] of breath. Problem List As Of Date 03/01/2025 Noted Resolved Depression, major, recurrent, moderate (HCC) [...] anemia complicating pr*12/30/2024 Encounter Status:Closed by MELISSA TRIMBLE on 03/01/25 [facility] H AND P Exam - OB/GYNon H&P Exam - CORPORATE BANKING OFFICER [facility] Medical Records Department [address] [place] [id number] H P Exam - CORPORATE BANKING OFFICER 03/01/25 0837 MR#: [id number] Acct: [id number] Name: VAL RUIZ Rep #: [id number] : 2000 From: Mayra Cam MD PCP: Care Physician,No Primary Status:PRE IN [facility] and Physical Date of Admission: 03/05/25 Expand All Collapse All Pre-Op History and Physical HPI: The patient is a 24 year old female presenting for pre-operative visit. She is scheduled for , for repeat elective cs at 38 weeks- type 2 DM, obesity, h/o CS on 03/05/25. Procedure discussed along with risks, benefits and complications. Other alternatives discussed for management. Consent form signed? Yes. PAST MEDICAL HISTORY PAST MEDICAL HISTORY Diagnosis Date ??? Asthma (HCC) ??? Bipolar PAST SURGICAL HISTORY PAST SURGICAL HISTORY Procedure Laterality Date ??? SECTION HX 07/08/2020 primary d/t Gestational diabetes- suspected LGA ??? TONSILLECTOMY ADENOIDECTOMY 2006 CURRENT MEDICATIONS Current Outpatient Medications Medication Sig Dispense Refill ??? insulin NPH (HUMULIN N NPH INSULIN KWIKPEN) 100 unit/mL (3 mL) injection pen 32 units at bedtime 5 each 11 ??? metoclopramide HCl (REGLAN) 5 mg tablet Take 1 tablet by mouth four times a day as needed (headache, nausea). 30 tablet 0 ??? insulin lispro (HUMALOG KWIKPEN) 100 unit/mL 5-10-10 units prior to meals + scale upto 55 units/day . 10 each 11 ??? diphenhydrAMINE (UNISOM SLEEPMINIS) 25 mg capsule Take 1 capsule by mouth at bedtime as needed. 48 capsule 0 ??? ferrous sulfate 325 mg (65 mg iron) tablet Take 1 tablet by mouth every other day. ??? famotidine (PEPCID) 20 mg tablet Take 1 tablet by mouth two times a day. 60 tablet 5 ??? Insulin [place]anchese, Disposable, (PEN NEEDLE) 32 gauge x 5/32 Use to inject insulin up to 4 times per day. 100 Each 5 ??? Blood-Glucose Meter Use as directed to check glucose levels up to seven times daily. 1 Each 0 ??? blood sugar diagnostic test strip Use as directed to check glucose levels up to seven times daily. 200 Strip 8 ??? Lancets Use as directed to check glucose levels up to seven times daily. 200 Each 8 ??? alcohol swabs (ALCOHOL PREP PADS) Use as directed to check glucose levels up to seven times daily. 200 Each 8 ??? fluticasone (FLONASE) 50 mcg/actuation nasal spray Use 2 Sprays in each nostril once daily. Rinse mouth after use. 1 Each 0 ??? aspirin, enteric coated (ECOTRIN LOW STRENGTH) 81 mg EC tablet Take 1 tablet by mouth once daily. 90 tablet 3 ??? citalopram (CELEXA) 20 mg tablet Take 20 mg by mouth once daily. ??? no115/iron/folic acid ( 19 ORAL) Take 1 tablet by mouth once daily. ??? albuterol HFA (PROVENTIL HFA, VENTOLIN HFA) 90 mcg/actuation inhaler Inhale 2 Puffs as instructed every 4 hours as needed for wheezing/shortness of breath. 8 g 0 No current facility-administered medications for this visit. ALLERGIES: Cephalexin PERSONAL HISTORY: SOCIAL HISTORY Social History Tobacco Use ??? Smoking status: Never ??? Smokeless tobacco: Never Vaping Use ??? Vaping status: Former Substance Use Topics ??? Alcohol use: Not Currently ??? Drug use: Never FAMILY HISTORY: FAMILY HISTORY FAMILY HISTORY Problem Relation Age of Onset ??? No Known Problems Sister ??? No Known Problems Brother ??? Diabetes Maternal Grandfather REVIEW OF SYMPTOMS: negative [...] history, medications and allergies Mayra Vincent MD Routine Office Visit on 02/19/2025 Note viewed by patient 03/01/25 0816 Cosigner Signature (if applicable): CC: Dr Mayra Cam MD; No Primary Care Physician Signed Normal [facility] Ketones Test strip Ql (U)Ord ered By: Mayra Cam on 03-01-2025 Ketones Ql (U) Negative Negative [facility] Microscopic analysis of urin e for red blood cells (RBC)Ordered By: Mayra Cam on 03-01-2025 Microscopic analysis of urine for red blood cells (RBC) 0-5 SEEN /hpf 0-5 [facility] Mucus LM Ql (Urine sed)Order ed By: Mayra Cam on 03-01-2025 Mucus Ql (Urine sed) 1+ /hpf [facility] Nitrite Test strip Ql (U)Ord ered By: Mayra Cam on 03-01-2025 Nitrite Ql (U) Negative Negative [facility] OB Triage Physician Noteon 0 03-01-2025 OB Triage Physician Note [facility] Medical Records Department [address] [place] [address] OB Triage Physician Note 03/01/25 1334 MR#: [id number] Acct: [id number] Name: VAL RUIZ Rep #: [id number] : 2000 24 From: Mayra Cam MD PCP: Care Physician,No Primary Status:DEP CLI Y Location: [facility] HPI - General General Date of Service: 03/01/25 HPI Narrative VAL RUIZ, is a 24 F @ 37.5 weeks who presents c/o possible SROM PFSH PFSH Home Medications ???Medication ???Instructions ???Recorded ???Last Taken ???Type aspirin 81 mg tablet,delayed 81 mg PO DAILY 02/24/25 02/22/25 2 0:00 History release 81 mg citalopram 20 mg tablet 20 mg PO DAILY 02/24/25 02/22/25 2 0:00 History 20 mg albuterol sulfate 90 mcg/actuation 2 puff inhalation Q4H PRN PRN Unknown History aerosol inhaler asthma fluticasone propionate 50 2 spray intranasal DAILY 03/01/25 Unknown History mcg/actuation nasal spray,suspension Allergy/AdvReac Type Severity Reaction Status Date / Time cephalexin (From Keflex) Allergy Mild Rash Verified 03/01/25 11:27 Social History Smoking Status: Never smoker NST FHR Rate Baby A Baseline: 130s Variability:: Moderate Accelerations:: 15 x 15 Decelerations:: None NST Reactive:: Yes FHR Category:: Category I Uterine Activity:: irregular Assessment Plan (1) History of delivery affecting : (2) 37 weeks gestation of : (3) Pre-existing diabetes mellitus affecting in third trimester, antepartum: (4) False labor: PLAN: Plan @ 37.5 weeks- r/o ROM, membranes intact, false labor 1) NST reactive cat 1- well being established 2) ROM plus was negative for rupture 3) scheduled CS on 03/05- return sooner if concerns 03/01/25 1336 D> Date Mayra Cam MD Cosigner Signature (if applicable): Date CC: Dr Mayra Cam MD; No Primary Care Physician Signed Normal [facility] Protein Test strip Ql (U)Ord ered By: Mayra Cam on 03-01-2025 Protein Ql (U) Negative Negative [facility] Squamous epithelial cells de tection in urine sediment by light microscopyOrdered By: Mayra Cam on 03-01-2025 Epithelial cells.squamous LM Ql (Urine sed) 0-5 SEEN /hpf 5- [facility] Urinalysis, Completeon 03-01 BACTERIA 1+ /hpf Normal None Seen [facility] Comment on above: Order Comment: CLEAN CATCH Performed By: #### L [id number] #### [facility] [address] [place], [place], [id number] EPI,SQUAMOUS 0-5 SEEN Normal - [facility] Comment on above: Order Comment: CLEAN CATCH Performed By: #### L [id number] #### [facility] [address] [place], [place], [id number] Mucus Ql (Urine sed) 1+ /hpf Normal [facility] Comment on above: Order Comment: CLEAN CATCH Performed By: #### L [id number] #### [facility] [address] [place], [place], [id number] RBC 0-5 SEEN Normal 0-5 [facility] Comment on above: Order Comment: CLEAN CATCH Performed By: #### L [id number] #### [facility] [address] [place], [place], [id number] WBC 0-5 SEEN Normal 0-5 [facility] Comment on above: Order Comment: CLEAN CATCH Performed By: #### L 400.0001 #### [facility] [address] [place], [place], [id number] Urine clarityOrdered By: Parra on 03-01-2025 Clarity (U) Clear Clear [facility] Urine color determinationOrd ered By: Mayra Cam on 03-01-2025 Color (U) Straw Yellow [facility] Urine glucose detectionOrder ed By: Mayra Cam on 03-01-2025 Glucose Ql (U) Normal mg/dl Normal [facility] Urine leukocyte esterase det ection by dipstickOrdered By: Mayra Vincent on 03-01-2025 Leukocyte esterase Test strip Ql (U) Negative Negative [facility] Urine pHOrdered By: Mayra Flor on 03-01-2025 pH (U) 7.0 [pH] 5.0 - 8.0 [facility] Urine sediment bacteria coun t by microscopy (number/high power field)Ordered By: Mayra Cam on 03-01-2025 Bacteria LM.HPF (Urine sed) [#/Area] 1 /[HPF] None Seen [facility] Urine specific gravity measu rementOrdered By: Mayra Cam on 03-01-2025 Specific gravity (U) [Rel density] 1.010 1.002-1.030 [facility] Urine urobilinogen measureme ntOrdered By: Mayra Cam on 03-01-2025 Urobilinogen Ql (U) Normal mg/dl Normal [facility] White blood cell countOrdere d By: Mayra Cam on 03-01-2025 White blood cell count 0-5 SEEN /hpf 0-5 [facility] URINE OB DIP B/Oon Glucose Ql (U) Negative Neg mg/dL [facility] Interpretation and review of laboratory results Normal [facility] Protein.monoclonal (U) [Mass/Vol] Negative Neg mg/dL [facility] Glucoseon 02-24-2025 FINGERSTICK GLU 83 mg/dL Normal 74-106 [facility] Comment on above: Result Comment: ZACHARY GEMENT OF PATIENT CARE PER NURSING PROTOCOL Performed By: #### L 501.080 #### [facility] [address] [place], [place], [id number] FINGERSTICK GLU 55 mg/dL Low 74-106 [facility] Comment on above: Result Comment: ZACHARY GEMENT OF PATIENT CARE PER NURSING PROTOCOL Performed By: #### L 501.080 #### [facility] [address] [place], [place], [id number] Bilirubin Test strip Ql (U)O rdered By: Mayra Cam on 02-24-2025 Bilirubin Ql (U) Negative Negative [facility] CNPNon 02-24-2025 CNPN Telephone (OBGYWM) ----- VAL RUIZ ([id number]) 2000 F Date Time Provider Department 02/24/25 KATI ROLLE During your visit today, we recorded the following information about you: Tracey Godoy LPN 02/24/2025 2:49 PM Signed Ob patient is 37w0d has c/s scheduled on 03/05/2025 and called c/o lower back pain and abdominal cramping and pressure that feels that began last night. Patient stated that the cramping and pain is painful and patient is not able to time the cramping. Denies LOF and VB. Patient stated that baby is active. Patient is about 40 min from office and is going to go to [facility] for evaluation. Kati Rolle APRN.CNM 02/24/2025 3:46 PM Signed Thank you for the update. Kati Rolle APRN.CNM Allergies As of Date: 02/24/2025 Noted Allergy Reaction CEPHALEXIN 05/01/2022 2 - Rash Date Reviewed: 02/19/2025 Reviewed by: Yamila Azar MA - Fully Assessed Reason for Visit: Patient Update [1234] Prescriptions as of 02/24/2025 - insulin NPH (HUMULIN N NPH INSULIN [...] mouth two times a day. - Insulin Wanchese, Disposable, (PEN NEEDLE) 32 gauge x 5/32 [...] of breath. Problem List As Of Date 02/24/2025 Noted Resolved Depression, major, recurrent, moderate (HCC) [...] deficiency anemia complicating pr*12/30/2024 Encounter Status:Closed by KATI ROLLE on 02/24/25 Normal [facility] Glucose measurement at [facility] deOrdered By: Mayra Cam on 02-24-2025 Glucose [Mass/Vol] 83 mg/dL 74-106 [facility] Comment on above: MANAGEMENT OF PATIEN T CARE PER NURSING PROTOCOL Ketones Test strip Ql (U)Ord ered By: Mayra Cam on 02-24-2025 Ketones Ql (U) Negative Negative [facility] Microscopic analysis of urin e for red blood cells (RBC)Ordered By: Mayra Cam on 02-24-2025 Microscopic analysis of urine for red blood cells (RBC) 0-5 SEEN /hpf 0-5 [facility] Mucus LM Ql (Urine sed)Order ed By: Mayra Cam on 02-24-2025 Mucus Ql (Urine sed) 0 SEEN /hpf [facility] Nitrite Test strip Ql (U)Ord ered By: Mayra Cam on 02-24-2025 Nitrite Ql (U) Negative Negative [facility] OB Triage Physician Noteon 0 02-24-2025 OB Triage Physician Note [facility] Medical Records Department [address] [place] [address] OB Triage Physician Note 02/24/25 1740 MR#: [id number] Acct: [id number] Name: VAL RUIZ Rep #: [id number] : 2000 24 From: Kati Rolle CNM PCP: Care Physician,No Primary Status:REG CLI Y Location: [place] [address] HPI - General HPI Narrative VAL RUIZ, is a 24 F at 37 weeks gestation here for cramping and contractions that started earlier this morning and have continued to increase. C/O headache with blurry vision at times. Positive movements. Denies any vaginal bleeding or loss of fluid. Patient is scheduled for repeat section. PFSH PFSH Home Medications ???Medication ???Instructions ???Recorded ???Last Taken ???Type aspirin 81 mg tablet,delayed 81 mg PO DAILY 02/24/25 02/22/25 2 0:00 History release 81 mg citalopram 20 mg tablet 20 mg PO DAILY 02/24/25 02/22/25 2 0:00 History 20 mg Allergy/AdvReac Type Severity Reaction Status Date / Time cephalexin (From Keflex) Allergy Mild Rash Verified 10/05/24 09:26 Social History Smoking Status: Never smoker NST FHR Rate Baby A Baseline: 135 Variability:: Moderate Accelerations:: 15 x 15 Decelerations:: None NST Reactive:: Yes FHR Category:: Category I Uterine Activity:: Irritability Assessment Plan (1) 37 weeks gestation of : (2) Cramping affecting , antepartum: (3) History of delivery affecting : (4) Headache: PLAN: Plan BP 107/57 Start IV and give 1000 cc fluid bolus CE 0.5 cm/ thick/ posterior UA sent Cervical exam unchanged Headache resolved D/C home with follow up in office as scheduled Dr. Vincent aware of A P 02/24/251956 Date Kati Shannantin [facility] Cosigner Signature (if applicable): Date CC: JAYLA Kati Rolle; No Primary Care Physician Signed Normal [facility] Protein Test strip Ql (U)Ord ered By: Mayra Cam on 02-24-2025 Protein Ql (U) 15 mg/dl High Negative [facility] Squamous epithelial cells de tection in urine sediment by light microscopyOrdered By: Mayra Cam on 02-24-2025 Epithelial cells.squamous LM Ql (Urine sed) 0-5 SEEN /hpf 5-10 [facility] Urinalysis, Completeon 02-24 BACTERIA 2+ /hpf Normal None Seen [facility] Comment on above: Order Comment: CLEAN CATCH Performed By: #### L 400.0001 #### [facility] [address] [place], [place], [id number] EPI,SQUAMOUS 0-5 SEEN Normal 5-10 [facility] Comment on above: Order Comment: CLEAN CATCH Performed By: #### L 400.0001 #### [facility] [address] [place], [place], [id number] RBC 0-5 SEEN Normal 0-5 [facility] Comment on above: Order Comment: CLEAN CATCH Performed By: #### L 400.0001 #### [facility] [address] [place], [address] WBC 5-10 SEEN Normal 0-5 [facility] Comment on above: Order Comment: CLEAN CATCH Performed By: #### L 400.0001 #### [facility] [address] [place], [address] Mucus Ql (Urine sed) 0 SEEN Normal [facility] Comment on above: Order Comment: CLEAN CATCH Performed By: #### L 400.0001 #### [facility] [address] [place], [address] Urinalysis, Routine (Dipstic k)on 02-24-2025 BILIRUBIN URINE Normal Negative [facility] Comment on above: Order Comment: COLLE CTOR TO SPECIFY Result Comment: Canc elled via OM: Duplicate Order Performed By: #### L 400.2010 #### [facility] [address] [place], [address] Clarity (U) Normal Clear [facility] Comment on above: Order Comment: COLLE CTOR TO SPECIFY Result Comment: Canc elled via OM: Duplicate Order Performed By: #### L 400.2010 #### [facility] [address] [place], [address] Color (U) Normal Yellow [facility] Comment on above: Order Comment: COLLE CTOR TO SPECIFY Result Comment: Canc elled via OM: Duplicate Order Performed By: #### L 400.2010 #### [facility] [address] [place], [address] GLUCOSE, UR Normal Normal [facility] Comment on above: Order Comment: COLLE CTOR TO SPECIFY Result Comment: Canc elled via OM: Duplicate Order Performed By: #### L 400.2010 #### [facility] [address] [place], [address] KETONE UR Normal Negative [facility] Comment on above: Order Comment: COLLE CTOR TO SPECIFY Result Comment: Canc elled via OM: Duplicate Order Performed By: #### L 400.2010 #### [facility] [address] [place], [address] LEUK ESTERASE Normal Negative [facility] Comment on above: Order Comment: COLLE CTOR TO SPECIFY Result Comment: Canc elled via OM: Duplicate Order Performed By: #### L 400.2010 #### [facility] [address] [place], [address] Nitrite Ql (U) Normal Negative [facility] Comment on above: Order Comment: COLLE CTOR TO SPECIFY Result Comment: Canc elled via OM: Duplicate Order Performed By: #### L 400.2010 #### [facility] [address] [place], [address] OCCULT BLOOD-UR Normal Negative [facility] Comment on above: Order Comment: COLLE CTOR TO SPECIFY Result Comment: Canc elled via OM: Duplicate Order Performed By: #### L 400.2010 #### [facility] [address] [place], [address] pH UR Normal 5.0 - 8.0 [facility] Comment on above: Order Comment: COLLE CTOR TO SPECIFY Result Comment: Canc elled via OM: Duplicate Order Performed By: #### L 400.2010 #### [facility] [address] [place], [address] PROT DIPSTX Normal Negative [facility] Comment on above: Order Comment: COLLE CTOR TO SPECIFY Result Comment: Canc elled via OM: Duplicate Order Performed By: #### L 400.2010 #### [facility] [address] [place], [address] SP.GR. DIPSTX Normal 1.002-1.030 [facility] Comment on above: Order Comment: COLLE CTOR TO SPECIFY Result Comment: Canc elled via OM: Duplicate Order Performed By: #### L 400.2010 #### [facility] [address] [place], [place], [id number] UR Preservative Normal [facility] Comment on above: Order Comment: COLLE CTOR TO SPECIFY Result Comment: Canc elled via OM: Duplicate Order Performed By: #### L 400.2010 #### [facility] [address] [place], [place], [id number] UROBILI Normal Normal [facility] Comment on above: Order Comment: COLLE CTOR TO SPECIFY Result Comment: Canc elled via OM: Duplicate Order Performed By: #### L 400.2010 #### [facility] [address] [place], [place], [id number] Urine clarityOrdered By: Parra on 02-24-2025 Clarity (U) Cloudy Clear [facility] Urine color determinationOrd ered By: Mayra Cam on 02-24-2025 Color (U) Yellow Yellow [facility] Urine glucose detectionOrder ed By: Mayra Cam on 02-24-2025 Glucose Ql (U) Normal mg/dl Normal [facility] Urine leukocyte esterase det ection by dipstickOrdered By: Mayra Vincent on 02-24-2025 Leukocyte esterase Test strip Ql (U) 25 /ul High Negative [facility] Urine pHOrdered By: Mayra Flor on 02-24-2025 pH (U) 6.5 [pH] 5.0 - 8.0 [facility] Urine sediment bacteria coun t by microscopy (number/high power field)Ordered By: Mayra Cam on 02-24-2025 Bacteria LM.HPF (Urine sed) [#/Area] 2 /[HPF] None Seen [facility] Urine specific gravity measu rementOrdered By: Mayra Cam on 02-24-2025 Specific gravity (U) [Rel density] 1.025 1.002-1.030 [facility] Urine urobilinogen measureme ntOrdered By: Mayra Cam on 02-24-2025 Urobilinogen Ql (U) Normal mg/dl Normal [facility] White blood cell countOrdere d By: Mayra Cam on 02-24-2025 White blood cell count 5-10 SEEN /hpf 0-5 [facility] CNPNon 02-20-2025 CNPN Telephone (ENDOAL) ----- VAL RUIZ ([id number]) 2000 F Date Time Provider Department 02/20/25 LALITO ROCHA ENDOAL During your visit today, we recorded the following information about you: Lalito Rocha, 02/20/2025 7:45 AM Signed Reviewed BG data- [...] mouth two times a day. - Insulin Wanchese, Disposable, (PEN NEEDLE) 32 gauge x 5/32 [...] Status:Closed by LALITO ROCHA on 02/20/25 Normal [facility] Examination level ultrasound on 02-19-2025 [facility] Radiology Study observation (narrative) [facility] HISTORY PHYSICALon HISTORY PHYSICAL HNO ID: [id number] Author: MAYRA FREY MD Service: ? Author [...] diabetes- suspected LGA TONSILLECTOMY AND ADENOIDECTOMY 2006 Current Outpatient Medications Medication Sig [...] times a day. 60 tablet 5 Insulin Wanchese, Disposable, (PEN NEEDLE) 32 gauge x 5/32 [...] medications and allergies Mayra Vincent MD Normal [facility] ROUTINE, GROUP B ST REPTOCOCCUS BY PCRon 02-19-2025 ROUTINE, GROUP B STREPTOCOCCUS BY PCR Not detected Normal [facility] Comment on above: Performed By: #### M AT21 #### [facility] CLIA [id number] [address] [place] [address] TYPE + SCREEN PRENATALon ABO A Normal [facility] Comment on above: Order Comment: Speci men Type: BLOOD SPECIMEN Ordering Facility: [facility] Address: [address] [place] [address] Performed By: #### T SPN #### [facility] CLIA [id number] [address] [place] [address] OF JULIÁN Rh Nom (Bld) Negative Normal [facility] Comment on above: Order Comment: Speci men Type: BLOOD SPECIMEN Ordering Facility: [facility] Address: [address] [place] [address] Performed By: #### T SPN #### [facility] CLIA [id number] [address] [place] [address] [facility] TYPE AND SCREEN EXPIRATION 02/14/2025 23:59 Normal [facility] Comment on above: Order Comment: Speci men Type: BLOOD SPECIMEN Ordering Facility: [facility] Address: [address] [place] [address] Performed By: #### T SPN #### [facility] CLIA [id number] [address] [place] [address] OF JULIÁN CNPSirena 02-10-2025 ROSA Telephone (ENDOAL) ----- VAL RUIZ ([id number]) 2000 F Date Time Provider Department 02/10/25 LALITO ROCHA ENDOAL During your visit today, we recorded the following information about you: Lalito Rocha, DO 02/10/2025 8:23 AM Signed Reviewed BG data- [...] mouth two times a day. - Insulin Wanchese, Disposable, (PEN NEEDLE) 32 gauge x 5/32 [...] Status:Closed by LALITO ROCHA on 02/10/25 Normal [facility] Examination level ultrasound on 02-08-2025 [facility] Radiology Study observation (narrative) [facility] CBC panel Auto (Bld)on 02-04 Erythrocyte distribution width (RBC) [Ratio] 20.6 % High 11.5 - 15.0 % [facility] Hematocrit (Bld) [Volume fraction] 30.1 % Low 36.0 - 46.0 % [facility] Hemoglobin (Bld) [Mass/Vol] 9.5 g/dL Low 11.5 - 15.5 g/dL [facility] Interpretation and review of laboratory results Abnormal [facility] MCH (RBC) [Entitic mass] 29.9 pg 26.0 - 34.0 pg [facility] MCHC (RBC) [Mass/Vol] 31.6 g/dL 30.5 - 36.0 g/dL [facility] MCV (RBC) [Entitic vol] 94.7 fL 80.0 - 100.0 fL [facility] Nucleated RBC (Bld) [#/Vol] NINF [facility] Platelet mean volume (Bld) [Entitic vol] 10.5 fL 9.0 - 12.7 fL [facility] Platelets (Bld) [#/Vol] 222 10*3/uL [facility] RBC (Bld) [#/Vol] 3.18 10*6/uL Low 3.90 - 5.2 0 m/uL [facility] WBC (Bld) [#/Vol] 4.96 10*3/uL [facility] Erythrocyte distribution width (RBC) [Ratio] 20.6 % High 11.5-15.0 [facility] Comment on above: Order Comment: Speci men Type: BLOOD SPECIMEN Ordering Facility: [facility] Address: [address] [place] [address] Performed By: #### M AT21 #### [facility] CLIA [id number] [address] [place] [address] Hematocrit (Bld) [Volume fraction] 30.1 % Low 36.0-46.0 [facility] Comment on above: Order Comment: Speci men Type: BLOOD SPECIMEN Ordering Facility: [facility] Address: [address] [place] [address] Performed By: #### M AT21 #### [facility] CLIA [id number] [address] [place] [address] Hemoglobin (Bld) [Mass/Vol] 9.5 g/dL Low 11.5-15.5 [facility] Comment on above: Order Comment: Speci men Type: BLOOD SPECIMEN Ordering Facility: [facility] Address: [address] [place] [address] Performed By: #### M AT21 #### [facility] CLIA [id number] [address] [place] [address] MCH (RBC) [Entitic mass] 29.9 pg Normal 26.0-34.0 [facility] Comment on above: Order Comment: Speci men Type: BLOOD SPECIMEN Ordering Facility: [facility] Address: [address] [place] [address] Performed By: #### M AT21 #### [facility] CLIA [id number] [address] [place] [address] MCHC (RBC) [Mass/Vol] 31.6 g/dL Normal 30.5-36.0 [facility] Comment on above: Order Comment: Speci men Type: BLOOD SPECIMEN Ordering Facility: [facility] Address: [address] [place] [address] Performed By: #### M AT21 #### [facility] CLIA [id number] [address] [place] [address] MCV (RBC) [Entitic vol] 94.7 fL Normal 80.0-100.0 [facility] Comment on above: Order Comment: Speci men Type: BLOOD SPECIMEN Ordering Facility: [facility] Address: [address] [place] [address] Performed By: #### M AT21 #### [facility] CLIA [id number] [address] [place] [address] Nucleated RBC (Bld) [#/Vol] 10*3/uL Normal <0.01 [facility] Comment on above: Order Comment: Speci men Type: BLOOD SPECIMEN Ordering Facility: [facility] Address: [address] [place] [address] Performed By: #### M AT21 #### [facility] CLIA [id number] [address] [place] [address] Platelet mean volume (Bld) [Entitic vol] 10.5 fL Normal 9.0-12.7 [facility] Comment on above: Order Comment: Speci men Type: BLOOD SPECIMEN Ordering Facility: [facility] Address: [address] [place] [address] Performed By: #### M AT21 #### [facility] CLIA [id number] [address] [place] [address] Platelets (Bld) [#/Vol] 222 10*3/uL Normal 150-400 [facility] Comment on above: Order Comment: Speci men Type: BLOOD SPECIMEN Ordering Facility: [facility] Address: [address] [place] [address] Performed By: #### M AT21 #### [facility] CLIA [id number] [address] [place] [address] RBC (Bld) [#/Vol] 3.18 10*6/uL Low 3.90-5.[address] [facility] Comment on above: Order Comment: Speci men Type: BLOOD SPECIMEN Ordering Facility: [facility] Address: [address] [place] [address] Performed By: #### M AT21 #### [facility] CLIA [id number] [address] [place] [address] WBC (Bld) [#/Vol] 4.96 10*3/uL Normal 3.70-11.[address] [facility] Comment on above: Order Comment: Speci men Type: BLOOD SPECIMEN Ordering Facility: [facility] Address: [address] [place] [address] Performed By: #### M AT21 #### [facility] CLIA [id number] [address] [place] [address] Comprehensive metabolic 2000 panelOrdered By: Kaila Menjivar on 02-04-2025 Albumin [Mass/Vol] 3 g/dL Low 3.9 - 4.9 g/dL [facility] ALP [Catalytic activity/Vol] 128 U/L High 34 - 123 U/L [facility] ALT [Catalytic activity/Vol] 8 U/L 7 - 38 U/L [facility] Anion gap [Moles/Vol] 11 mmol/L 8 - 15 mmol/L [facility] AST [Catalytic activity/Vol] 11 U/L Low 13 - 35 U/L [facility] Bilirubin [Mass/Vol] 0.2 mg/dL 0.2 - 1 .3 mg/dL [facility] Calcium [Mass/Vol] 8.6 mg/dL 8.5 - 10. 2 mg/dL [facility] Chloride [Moles/Vol] 104 mmol/L 98 - 10 7 mmol/L [facility] CO2 [Moles/Vol] 19 mmol/L Low 22 - 30 mmol/L [facility] Creatinine [Mass/Vol] 0.47 mg/dL Low 0.58 - 0.96 mg/dL [facility] GFR/1.73 sq M.predicted among non-blacks MDRD (S/P/Bld) [Vol rate/Area] 136 mL/min/{1.73_m2} - PINF [facility] Comment on above: Estimated Glomerular Filtration Rate (eGFR) is calculated using [...] 133 mg/dL High 74 - 99 mg/dL [facility] Comment on above: The [place] Diab[employer] Association (ADA) provides guidance for cutoff values [...] Standards of Medical Care in Diabetes 2016, [place] [employer]. Diabetes Care. 2016.39(Suppl 1). Interpretation and review of laboratory results Abnormal [facility] Potassium [Moles/Vol] 3.9 mmol/L 3.7 - 5.1 mmol/L [facility] Protein [Mass/Vol] 6.5 g/dL 6.3 - 8.0 g/dL [facility] Sodium [Moles/Vol] 134 mmol/L Low 136 - 144 mmol/L [facility] Urea nitrogen [Mass/Vol] 5 mg/dL Low 7 - 21 mg/dL [facility] Comprehensive metabolic 2000 panelon 02-04-2025 Albumin [Mass/Vol] 3.0 g/dL Low 3.9-4.9 [facility] Comment on above: Order Comment: Speci men Type: BLOOD SPECIMEN Ordering Facility: [facility] Address: [address] [place] [address] Performed By: #### M AT21 #### [facility] CLIA [id number] [address] [place] [address] ALP [Catalytic activity/Vol] 128 U/L High 34-123 [facility] Comment on above: Order Comment: Speci men Type: BLOOD SPECIMEN Ordering Facility: [facility] Address: [address] [place] [address] Performed By: #### M AT21 #### [facility] CLIA [id number] [address] [place] [address] ALT [Catalytic activity/Vol] 8 U/L Normal 7-38 [facility] Comment on above: Order Comment: Speci men Type: BLOOD SPECIMEN Ordering Facility: [facility] Address: [address] [place] [address] Performed By: #### M AT21 #### [facility] CLIA [id number] [address] [place] [address] Anion gap [Moles/Vol] 11 mmol/L Normal 8-15 [facility] Comment on above: Order Comment: Speci men Type: BLOOD SPECIMEN Ordering Facility: [facility] Address: [address] [place] [address] Performed By: #### M AT21 #### [facility] CLIA [id number] [address] [place] [address] AST [Catalytic activity/Vol] 11 U/L Low 13-35 [facility] Comment on above: Order Comment: Speci men Type: BLOOD SPECIMEN Ordering Facility: [facility] Address: [address] [place] [address] Performed By: #### M AT21 #### [facility] CLIA [id number] [address] [place] [address] Bilirubin [Mass/Vol] 0.2 mg/dL Normal 0.2-1.3 [facility] Comment on above: Order Comment: Speci men Type: BLOOD SPECIMEN Ordering Facility: [facility] Address: [address] [place] [address] Performed By: #### M AT21 #### [facility] CLIA [id number] [address] [place] [address] Calcium [Mass/Vol] 8.6 mg/dL Normal 8.5-10.2 [facility] Comment on above: Order Comment: Speci men Type: BLOOD SPECIMEN Ordering Facility: [facility] Address: [address] [place] [address] Performed By: #### M AT21 #### [facility] CLIA [id number] [address] [place] [address] [id number] Chloride [Moles/Vol] 104 mmol/L Normal 98-107 [facility] Comment on above: Order Comment: Speci men Type: BLOOD SPECIMEN Ordering Facility: [facility] Address: [address] [place] [address] Performed By: #### M AT21 #### [facility] CLIA [id number] [address] [place] [address] CO2 [Moles/Vol] 19 mmol/L Low 22-30 [facility] Comment on above: Order Comment: Speci men Type: BLOOD SPECIMEN Ordering Facility: [facility] Address: [address] [place] [address] Performed By: #### M AT21 #### [facility] CLIA [id number] [address] [place] [address] Creatinine [Mass/Vol] 0.47 mg/dL Low 0.58-0.96 [facility] Comment on above: Order Comment: Speci men Type: BLOOD SPECIMEN Ordering Facility: [facility] Address: [address] [place] [address] Performed By: #### M AT21 #### [facility] CLIA [id number] [address] [place] [address] Creatinine and Glomerular filtration rate.predicted panel (S/P/Bld) 136 mL/min/1.73m??? Normal >=60 [facility] Comment on above: Order Comment: Gerhard kim Type: BLOOD SPECIMEN Ordering Facility: [facility] Address: [address] [place] [address] Result Comment: Janet mated Glomerular Filtration Rate [...] GFR. Performed By: #### M AT21 #### [facility] CLIA [id number] [address] [place] [address] Glucose [Mass/Vol] 133 mg/dL High 74-99 [facility] Comment on above: Order Comment: eGrhard kim Type: BLOOD SPECIMEN Ordering Facility: [facility] Address: [address] [place] [address] Result Comment: The [place] Diabetes Association (ADA) provides guidance for cutoff [...] Standards of Medical Care in Diabetes 2016, [place] [employer]. Diabetes Care. 2016.39(Suppl 1). Performed By: #### M AT21 #### [facility] CLIA [id number] [address] [place] [address] Potassium [Moles/Vol] 3.9 mmol/L Normal 3.7-5.1 [facility] Comment on above: Order Comment: Speci men Type: BLOOD SPECIMEN Ordering Facility: [facility] Address: [address] [place] [address] Performed By: #### M AT21 #### [facility] CLIA [id number] [address] [place] [address] Protein [Mass/Vol] 6.5 g/dL Normal 6.3-8.0 [facility] Comment on above: Order Comment: Speci men Type: BLOOD SPECIMEN Ordering Facility: [facility] Address: [address] [place] [address] Performed By: #### M AT21 #### [facility] CLIA [id number] [address] [place] [address] Sodium [Moles/Vol] 134 mmol/L Low 136-144 [facility] Comment on above: Order Comment: Speci men Type: BLOOD SPECIMEN Ordering Facility: [facility] Address: [address] [place] [address] Performed By: #### M AT21 #### [facility] CLIA [id number] [address] [place] [address] Urea nitrogen [Mass/Vol] 5 mg/dL Low 7-21 [facility] Comment on above: Order Comment: Speci men Type: BLOOD SPECIMEN Ordering Facility: [facility] Address: [address] [place] [address] Performed By: #### M AT21 #### [facility] CLIA [id number] [address] [place] [address] No Panel Informationon 02-04 [facility] Prot/Creat Uron 02-04-2025 Protein/Creatinine (U) [Mass ratio] 0.21 mg/mg High <0.15 [facility] Comment on above: Order Comment: Speci men Type: BLOOD SPECIMEN Ordering Facility: [facility] Address: [address] [place] [address] Result Comment: Adul t Proteinuria Categories: <0.15 mg/mg is considered normal to mildly increased 0.15 - 0.50 mg/mg is considered moderately increased >0.50 mg/mg is considered severely increased KDIGO. (2013). KDIGO 2012 Clinical Practice Guideline for the Evaluation and Management of Chronic Kidney Disease. Official Journal of the International Society of Nephrology, 3(1), 1-150. Performed By: #### 5 7021-8 #### [facility] CLIA [id number] [address] [place] [address] [place] [facility] Protein/Creatinine (U) [Mass ratio]on 02-04-2025 Creatinine (U) [Mass/Vol] 43.4 mg/dL Normal 20.0-300.0 [facility] Comment on above: Order Comment: Gerhard kim Type: BLOOD SPECIMEN Ordering Facility: [facility] Address: [address] [place] [address] Performed By: #### 5 7021-8 #### [facility] CLIA [id number] [address] [place] [address] Protein (U) [Mass/Vol] 9 mg/dL Normal 0-20 [facility] Comment on above: Order Comment: Gerhard kim Type: BLOOD SPECIMEN Ordering Facility: [facility] Address: [address] [place] [address] Performed By: #### 5 7021-8 #### [facility] [id number] [address] [place] [address] OF [facility] URINE OB DIP B/OOrdered By: Yamila Azar on 02-04-2025 Glucose Ql (U) Negative Neg mg/dL [facility] Interpretation and review of laboratory results Normal [facility] Protein.monoclonal (U) [Mass/Vol] Negative Neg mg/dL [facility] Yoly 02-02-2025 ROSA Telephone (ENDOAL) ----- MERYL RUIZDenise Albert ([id number]) 2000 F Date Time Provider Department 02/02/25 LALITO ROCHA During your visit today, we recorded the following information about you: Lalito Rocha, DO 02/02/2025 4:20 PM Signed Reviewed BG data- [...] mouth two times a day. - Insulin Wanchese, Disposable, (PEN NEEDLE) 32 gauge x 5/32 [...] Status:Closed by LALITO ROCHA on 02/02/25 Normal [facility] Examination level ultrasound on 02-01-2025 [facility] Radiology Study observation (narrative) [facility] Yoly 01-27-2025 ROSA Telephone (ENDOAL) ----- VAL RUIZ ([id number]) 2000 F Date Time Provider Department 01/27/25 LALITO ROCHA During your visit today, we recorded the following information about you: Devon Rochamira Cordova DO 01/27/2025 8:06 PM Signed Reviewed BG data- [...] Rash Date Reviewed: 01/25/2025 Reviewed by: Yolette Triplett RN - Fully Assessed Reason for Visit: [...] mouth two times a day. - Insulin Wanchese, Disposable, (PEN NEEDLE) 32 gauge x 5/32 [...] Status:Closed by LALITO ROCHA on 01/27/25 Normal [facility] Examination level ultrasound on 01-26-2025 [facility] Radiology Study observation (narrative) [facility] Examination level ultrasound on 01-25-2025 [facility] Examination level ultrasound on 01-22-2025 Radiology Study observation (narrative) [facility] 01-19-2025 CNPBety Telephone (ENDOAL) ----- VAL RUIZ ([id number]) 2000 F Date Time Provider Department 01/19/25 LALITO ROCHA During your visit today, we recorded the following information about you: Lalito Rocha, DO 01/19/2025 7:24 AM Signed Reviewed BG data- [...] mouth two times a day. - Insulin Wanchese, Disposable, (PEN NEEDLE) 32 gauge x 5/32 [...] Encounter Status:Closed by LALITO ROCHA on 01/19/25 [facility] Yoly 01-12-2025 ROSA Telephone (ENDOAL) ----- VAL RUIZ ([id number]) 2000 F Date Time Provider Department 01/12/25 LALITO ROCHA ENDOAL During your visit today, we recorded the following information about you: Lalito Rocha DO 01/12/2025 7:35 AM Signed Reviewed BG [...] Rash Date Reviewed: 01/12/2025 Reviewed by: Yolette Triplett RN - Fully Assessed Reason for Visit: [...] mouth two times a day. - Insulin Wanchese, Disposable, (PEN NEEDLE) 32 gauge x 5/32 [...] Encounter Status:Closed by LALITO ROCHA on 01/12/25 [facility] 01-08-2025 [facility] Telephone ([id number]) ----- VAL RUIZ ([id number]) 2000 F Date Time Provider Department 01/08/25 MELISSA CHAVEZ [id number] During your visit today, we recorded the following information about you: Melissa Chavez RN 01/08/2025 10:47 AM Signed 3rd risk assessment form submitted 01/08/2025. 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 - Insulin Wanchese, Disposable, (PEN NEEDLE) 32 gauge x 532 [...] Encounter Status:Closed by MELISSA CHAVEZ on 01/08/25 Normal [facility] CNPSirena 01-05-2025 CNPN Telephone (ENDOAL) ----- VAL RUIZ ([id number]) 2000 F Date Time Provider Department 01/05/25 [...] mouth two times a day. - Insulin Wanchese, Disposable, (PEN NEEDLE) 32 gauge x 5/32 [...] Encounter Status:Closed by LALITO ROCHA on 01/05/25 Normal [facility] CNPNon 12-31-2024 CNPN Telephone (INTMMN) ----- VAL RUIZ ([id number]) 2000 F Date Time Provider Department 12/31/24 THOM DEAN INTMMN During your visit today, we recorded the following information about you: Thom Dean, NAZ 12/31/2024 11:03 AM Signed Venofer order signed [...] Date Reviewed: 12/30/2024 Reviewed by: Thom Dean, RN - Fully Assessed Reason for Visit: [...] mouth two times a day. 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 - Insulin Wanchese, Disposable, (PEN NEEDLE) 32 gauge x 5/32 [...] Status:Closed by LALITO ROCHA on 12/28/24 Normal [facility] CBC W Auto Differential pane l (Bld)on 12-25-2024 Basophils (Bld) [#/Vol] 0.03 10*3/uL Normal <0.11 [facility] Comment on above: Order Comment: Speci men Type: BLOOD SPECIMEN Ordering Facility: [facility] Address: [address] [place] [address] Performed By: #### 5 7021-8 #### [facility] CLIA [id number] [address] [place] [address] [place] Basophils/100 WBC (Bld) 0.4 % Normal [facility] Comment on above: Order Comment: Speci men Type: BLOOD SPECIMEN Ordering Facility: [facility] Address: [address] [place] [address] Performed By: #### 5 7021-8 #### [facility] CLIA [id number] [address] [place] [address] [place] Differential cell count method Nom (Bld) Auto Normal [facility] Comment on above: Order Comment: Speci men Type: BLOOD SPECIMEN Ordering Facility: [facility] Address: [address] [place] [address] Performed By: #### 5 7021-8 #### [facility] CLIA [id number] [address] [place] [address] [place] Eosinophils (Bld) [#/Vol] 0.15 10*3/uL Normal <0.46 [facility] Comment on above: Order Comment: Speci men Type: BLOOD SPECIMEN Ordering Facility: [facility] Address: [address] [place] [address] Performed By: #### 5 7021-8 #### [facility] CLIA [id number] [address] [place] [address] [place] Eosinophils/100 WBC (Bld) 2.0 % Normal [facility] Comment on above: Order Comment: Speci men Type: BLOOD SPECIMEN Ordering Facility: [facility] Address: [address] [place] [address] Performed By: #### 5 7021-8 #### [facility] CLIA [id number] [address] [place] [address] [place] Erythrocyte distribution width (RBC) [Ratio] 17.9 % High 11.5-15.0 [facility] Comment on above: Order Comment: Speci men Type: BLOOD SPECIMEN Ordering Facility: [facility] Address: [address] [place] [address] Performed By: #### 5 7021-8 #### [facility] [id number] [address] [place] [address] [place] Hematocrit (Bld) [Volume fraction] 27.7 % Low 36.0-46.0 [facility] Comment on above: Order Comment: Speci men Type: BLOOD SPECIMEN Ordering Facility: [facility] Address: [address] [place] [address] Performed By: #### 5 7021-8 #### [facility] [id number] [address] [place] [address] [place] Hemoglobin (Bld) [Mass/Vol] 8.6 g/dL Low 11.5-15.5 [facility] Comment on above: Order Comment: Speci men Type: BLOOD SPECIMEN Ordering Facility: [facility] Address: [address] [place] [address] Performed By: #### 5 7021-8 #### [facility] [id number] [address] [place] [address] [place] Immature granulocytes (Bld) [#/Vol] 0.05 10*3/uL Normal <0.10 [facility] Comment on above: Order Comment: Speci men Type: BLOOD SPECIMEN Ordering Facility: [facility] Address: [address] [place] [address] Performed By: #### 5 7021-8 #### [facility] CLIA [id number] [address] [place] [address] [place] Immature granulocytes/100 WBC (Bld) 0.7 % Normal [facility] Comment on above: Order Comment: Speci men Type: BLOOD SPECIMEN Ordering Facility: [facility] Address: [address] [place] [address] Performed By: #### 5 7021-8 #### [facility] [id number] [address] [place] [address] [place] Lymphocytes (Bld) [#/Vol] 1.51 10*3/uL Normal 1.00-4.00 [facility] Comment on above: Order Comment: Speci men Type: BLOOD SPECIMEN Ordering Facility: [facility] Address: [address] [place] [address] Performed By: #### 5 7021-8 #### [facility] CLIA [id number] [address] [place] [address] [place] Lymphocytes/100 WBC (Bld) 19.8 % Normal [facility] Comment on above: Order Comment: Speci men Type: BLOOD SPECIMEN Ordering Facility: [facility] Address: [address] [place] [address] Performed By: #### 5 7021-8 #### [facility] CLIA [id number] [address] [place] [address] [place] MCH (RBC) [Entitic mass] 27.5 pg Normal 26.0-34.0 [facility] Comment on above: Order Comment: Speci men Type: BLOOD SPECIMEN Ordering Facility: [facility] Address: [address] [place] [address] Performed By: #### 5 7021-8 #### [facility] CLIA [id number] [address] [place] [address] [place] MCHC (RBC) [Mass/Vol] 31.0 g/dL Normal 30.5-36.0 [facility] Comment on above: Order Comment: Speci men Type: BLOOD SPECIMEN Ordering Facility: [facility] Address: [address] [place] [address] Performed By: #### 5 7021-8 #### [facility] CLIA [id number] [address] [place] [address] [place] MCV (RBC) [Entitic vol] 88.5 fL Normal 80.0-100.0 [facility] Comment on above: Order Comment: Speci men Type: BLOOD SPECIMEN Ordering Facility: [facility] Address: [address] [place] [address] Performed By: #### 5 7021-8 #### [facility] CLIA [id number] [address] [place] [address] [place] Monocytes (Bld) [#/Vol] 0.41 10*3/uL Normal <0.87 [facility] Comment on above: Order Comment: Speci men Type: BLOOD SPECIMEN Ordering Facility: [facility] Address: [address] [place] [address] Performed By: #### 5 7021-8 #### [facility] CLIA [id number] [address] [place] [address] [place] Monocytes/100 WBC (Bld) 5.4 % Normal [facility] Comment on above: Order Comment: Speci men Type: BLOOD SPECIMEN Ordering Facility: [facility] Address: [address] [place] [address] Performed By: #### 5 7021-8 #### [facility] CLIA [id number] [address] [place] [address] [place] Neutrophils (Bld) [#/Vol] 5.49 10*3/uL Normal 1.45-7.50 [facility] Comment on above: Order Comment: Speci men Type: BLOOD SPECIMEN Ordering Facility: [facility] Address: [address] [place] [address] Performed By: #### 5 7021-8 #### [facility] CLIA [id number] [address] [place] [address] [place] Neutrophils/100 WBC (Bld) 71.7 % Normal [facility] Comment on above: Order Comment: Speci men Type: BLOOD SPECIMEN Ordering Facility: [facility] Address: [address] [place] [address] Performed By: #### 5 7021-8 #### [facility] CLIA [id number] [address] [place] [address] [place] Nucleated RBC (Bld) [#/Vol] 10*3/uL Normal <0.01 [facility] Comment on above: Order Comment: Speci men Type: BLOOD SPECIMEN Ordering Facility: [facility] Address: [address] [place] [address] Performed By: #### 5 7021-8 #### [facility] CLIA [id number] [address] [place] [address] [place] Nucleated RBC/100 WBC (Bld) [Ratio] 0.0 /100 WBC Normal [facility] Comment on above: Order Comment: Speci men Type: BLOOD SPECIMEN Ordering Facility: [facility] Address: [address] [place] [address] Performed By: #### 5 7021-8 #### [facility] [id number] [address] [place] [address] [place] Platelet mean volume (Bld) [Entitic vol] 10.5 fL Normal 9.0-12.7 [facility] Comment on above: Order Comment: Speci men Type: BLOOD SPECIMEN Ordering Facility: [facility] Address: [address] [place], [place] [address] Performed By: #### 5 7021-8 #### [facility] CLIA [id number] [address] [place] [address] [place] Platelets (Bld) [#/Vol] 289 10*3/uL Normal 150-400 [facility] Comment on above: Order Comment: Speci men Type: BLOOD SPECIMEN Ordering Facility: [facility] Address: [address] [place] [address] Performed By: #### 5 7021-8 #### [facility] CLIA [id number] [address] [place] [address] [place] RBC (Bld) [#/Vol] 3.13 10*6/uL Low 3.90-5.[address] [facility] Comment on above: Order Comment: Speci men Type: BLOOD SPECIMEN Ordering Facility: [facility] Address: [address] [place] [address] Performed By: #### 5 7021-8 #### [facility] CLIA [id number] [address] [place] [address] [place] WBC (Bld) [#/Vol] 7.64 10*3/uL Normal 3.70-11.[address] [facility] Comment on above: Order Comment: Speci men Type: BLOOD SPECIMEN Ordering Facility: [facility] Address: [address] [place] [address] Performed By: #### 5 7021-8 #### [facility] CLIA [id number] [address] [place] [address] [place] Examination level ultrasound on 12-25-2024 [facility] Radiology Study observation (narrative) [facility] Ferritin SerPl-mCncon 2024 Ferritin [Mass/Vol] 14.5 ng/mL Low 14.7-205.[address] [facility] Comment on above: Order Comment: Speci men Type: BLOOD SPECIMEN Ordering Facility: [facility] Address: [address] [place] [address] Performed By: #### M AT21 #### [facility] CLIA [id number] [address] [place] [address] Iron and Iron binding capaci ty panelon 12-25-2024 Iron [Mass/Vol] 59 ug/dL Normal 41-186 [facility] Comment on above: Order Comment: Speci men Type: BLOOD SPECIMEN Ordering Facility: [facility] Address: [address] [place] [address] Performed By: #### M AT21 #### [facility] CLIA [id number] [address] [place] [address] Iron binding capacity [Mass/Vol] 542 ug/dL High 232-386 [facility] Comment on above: Order Comment: Speci men Type: BLOOD SPECIMEN Ordering Facility: [facility] Address: [address] [place] [address] Performed By: #### M AT21 #### [facility] CLIA [id number] [address] [place] [address] Iron/TIBC [Molar ratio] 10.9 % Low 15.0-57.0 [facility] Comment on above: Order Comment: Speci men Type: BLOOD SPECIMEN Ordering Facility: [facility] Address: [address] [place] [address] Performed By: #### M AT21 #### [facility] CLIA [id number] [address] [place] [address] Reagin and Treponema pallidu m IgG and IgM [Interp]on 12-25-2024 T. pallidum IgG+IgM IA Ql (S) Non-Reactive Normal Nonreactive [facility] Comment on above: Order Comment: Speci men Type: BLOOD SPECIMEN Ordering Facility: [facility] Address: [address] [place] [address] Performed By: #### 7 3752-8 #### [facility] CLIA [id number] [address] [place] [address] [place] Reagin+T pallidum IgG+IgM Se rPl-Impon 12-25-2024 Reagin and Treponema pallidum IgG and IgM [Interp] Cannot exclude recent Treponemal infection if specimen collected within 7-10 days after appearance of suspect lesions or 2-3 weeks after an exposure. Clinical correlation is required. Normal [facility] Comment on above: Order Comment: Speci men Type: BLOOD SPECIMEN Ordering Facility: [facility] Address: [address] [place] [address] Performed By: #### 7 3752-8 #### [facility] CLIA [id number] [address] [place] [address] [place] [address] [place] URINE OB DIP B/Oon Glucose Ql (U) Negative Neg mg/dL [facility] Protein.monoclonal (U) [Mass/Vol] Negative Neg mg/dL [facility] CNPNon 12-20-2024 CNPN Telephone (ENDOAL) ----- VAL RUIZ ([id number]) 2000 F Date Time Provider Department 12/20/24 LALITO ROCHA ENDOAL During your visit today, we recorded the following information about you: Lalito Rocha, 12/20/2024 7:16 PM Signed Reviewed BG data- [...] mouth two times a day. - Insulin Wanchese, Disposable, (PEN NEEDLE) 32 gauge x 5/32 [...] Encounter Status:Closed by [facility] Tele[facility] (ENDOAL) ----- VAL RUIZ ([id number]) 2000 F Date Time Provider Department 12/15/24 LALITO ROCHA ENDOAL During your visit today, we recorded the following information about you: Lalito Rocha DO 12/15/2024 5:04 PM Signed Reviewed BG data- [...] mouth two times a day. - Insulin Wanchese, Disposable, (PEN NEEDLE) 32 gauge x 5/32 [...] Encounter Status:Closed by LALITO ROCHA on 12/15/24 [facility] Yoly 12-07-2024 CNPN Telephone (OBGYWM) ----- VAL RUIZ ([id number]) 2000 F Date Time Provider Department 12/07/24 ALFRED ARCOS During your visit today, we recorded the following information about you: Elena Parker RN 12/07/2024 8:45 AM Signed Breast pump order received from [facility]. To KJ to sign. NAZ Mantilla Trisha, RN 12/08/2024 4:42 PM Signed Order signed and faxed. Elena Parker RN Allergies As of Date: 12/07/2024 Noted Allergy Reaction CEPHALEXIN 05/01/2022 2 - Rash Date Reviewed: 12/03/2024 Reviewed by: Alfred Arcso MD - Fully Assessed Reason for Visit: [...] mouth two times a day. - Insulin Wanchese, Disposable, (PEN NEEDLE) 32 gauge x 5/32 [...] Status:Closed by ELENA PARKER on 12/08/24 Normal [facility] Examination level ultrasound on 12-03-2024 [facility] Radiology Study observation (narrative) [facility] URINE OB DIP B/Oon Glucose Ql (U) Negative Neg mg/dL [facility] Interpretation and review of laboratory results Normal [facility] Protein.monoclonal (U) [Mass/Vol] Negative Neg mg/dL [facility] CNPNon 11-30-2024 CNPN Telephone (ENDOAL) ----- VAL RUIZ ([id number]) 2000 F Date Time Provider Department 11/30/24 LALITO ROCHA During your visit today, we [...] prior to meals + scale. - Insulin Wanchese, Disposable, (PEN NEEDLE) 32 gauge x 5/32 [...] Encounter Status:Closed by LALITO ROCHA on 11/30/24 [facility] 11-22-2024 CNPN Telephone (ENDOAL) ----- VAL RUIZ ([id number]) 2000 F Date Time Provider Department 11/22/24 [...] prior to meals + scale. - Insulin Wanchese, Disposable, (PEN NEEDLE) 32 gauge x 5/32 [...] Encounter Status:Closed by LALITO ROCHA on 11/22/24 [facility] 11-15-2024 ROSA Telephone (ENDOAL) ----- VAL RUIZ ([id number]) 2000 F Date Time Provider Department 11/15/24 LALITO ROCHA During your visit today, we recorded the following information about you: Lalito Rocha, 11/15/2024 7:47 AM Signed Reviewed BG data- [...] prior to meals + scale. - Insulin Wanchese, Disposable, (PEN NEEDLE) 32 gauge x 5/32 [...] Encounter Status:Closed by LALITO ROCHA on 11/15/24 [facility] 11-10-2024 JASEN Telephone (ENDOAL) ----- VAL RUIZ ([id number]) 2000 F Date Time Provider Department 11/10/24 LALITO ROCHA ENDOAL During your visit today, we recorded the following information about you: Lalito Rocha, 11/10/2024 9:21 AM Signed Reviewed BG data- [...] prior to meals + scale. - Insulin Wanchese, Disposable, (PEN NEEDLE) 32 gauge x 5/32 [...] Encounter Status:Closed by LALITO ROCHA on 11/10/24 [facility] FETALon 11-10-2024 + ----- ---+-+ Pediatric Cardiology Echocardiogram Report + ---+-+ NAME: VAL RUIZ : 2000 PT ID#: [id number] Age: 24 years Sex: F STUDY DATE: 11/10/2024 1:47:35 PM DEEP: 03/17/2025 GA: 21w6d Image Quality: Technically difficult and adequate. Referring Physician: Melissa Aguilera Diagnosing Physician: Edie Mayer [employer] Service Team Member: Oksana Chaudhari [facility] 2nd [employer] Service Team Member: Diagnosis: O35.9XX1 Suspected abnormality and damage, fetus 1 of multiple Procedure Code: 65298, 41501, 53334 Echo, Complete (w/Doppler and color) Exam Location: [facility] (). Indications: Evaluate cardiac anatomy and function [...] aorta, were explained to the patient. Edie Mayer DO *Electronically signed on 11/10/2024 at 2:57:50 PM Final CC [employer] [facility] Image : [id number] See Link below for Image Normal [facility] 11-09-2024 CNPN Telephone ([id number]) ----- VAL RUIZ ([id number]) 2000 F Date Time Provider Department 11/09/24 MELISSA CHAVEZ [id number] During your visit today, we recorded the following information about you: Melissa Chavez RN 11/09/2024 8:43 AM Signed 2nd risk assessment form submitted 11/09/2024. 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 - insulin lispro (HUMALOG KWIKPEN) 100 unit/mL 5-8-8 units prior to meals + scale. - insulin NPH (HUMULIN N NPH INSULIN KWIKPEN) 100 unit/mL (3 mL) injection pen 22 units at bedtime - Insulin Wanchese, Disposable, (PEN NEEDLE) 32 gauge x 5/32 [...] Status:Closed by MELISSA CHAVEZ on 11/09/24 Normal [facility] Examination level ultrasound on 11-06-2024 Indication Detailed [...] 14 oz EFW by: Hadlock (HC-AC-FL) Extended Automatic Pad Making Machine Operator 5.9 mm CM 6.1 mm 74% Nicolaides [...] normal LVOT view: normal 3-vessel view: normal 7-sfpzbf-ryhinhc view: normal Heart / Thorax Situs: situs [...] Read By: Silvana Johnson M.D. MATERNAL MEDICINE [facility] Radiology Study observation (narrative) [facility] 11-01-2024 ROSA Telephone (ENDOAL) ----- SARAVAL N ([id number]) 2000 F Date Time Provider Department 11/01/24 LALITO ROCHA During your visit today, we recorded the following information about you: Lalito Rocha, DO 11/01/2024 10:02 AM Signed Reviewed BG data- [...] pen 22 units at bedtime - Insulin Wanchese, Disposable, (PEN NEEDLE) 32 gauge x 5/32 [...] Encounter Status:Closed by LALITO ROCHA on 11/01/24 [facility] CNOVon 10-20-2024 CNOV Office Visit (UCWSTR ) ----- VAL RUIZ ([id number]) 2000 F Date Time Provider Department 10/20/24 9:15 AM [facility] During your visit today, we recorded the following information about you: Temperature Pulse Respiration Blood pressure 97.5 degrees 82/minute 16/minute 122/70 Weight 80.2 kg Arleth Gillespie PA-C 10/20/2024 9:35 AM Signed This note was created using Heartbeat. Subjective Val Ruiz is a 24 year [...] AMOXICILLIN 875 MG TABLET Arleth Gillespie PA-C Allergies As of Date: 10/20/2024 Noted Allergy [...] 08/03/2024 A (more content not included)... Normal [facility] 10-20-2024 ROSA Telephone (ENDOAL) ----- VAL RUIZ ([id number]) 2000 F Date Time Provider Department 10/20/24 LALITO ROCHA During your visit today, we recorded the following information about you: Jacinta Oscar 10/20/2024 2:23 PM Signed Patient referred by Dr. Aguilera for GDM, [...] Encounter Status:Closed by JACINTA OSCAR on 10/20/24 [facility] 10-15-2024 CNPN Telephone (ENDOAL) ----- VAL RUIZ ([id number]) 2000 F Date Time Provider Department 10/15/24 [...] logs with instructions to email weekly to [email or web address] Patient advised that she signed a CARMENZA for her records to be sent to [facility]. First available appointment is 10/29/2024 Please advise for scheduling. Thank you Lalito Rocha DO 10/17/2024 9:21 AM Signed Please advise pt to start checking her BG fasting and 2 hour post meal and forward me these numbers next week. She should be scheduled next available f/u- Thanks Jacinta Mantilla 10/19/2024 11:22 AM Signed Left voicemail for patient to call [phone] Rocha. Jacinta Oscar [...] *09/18/2024 Encounter Status:Closed by JACINTA OSCAR on 10/16/24 [facility] 10-13-2024 CNPN Telephone (ENDOAL) ----- VAL RUIZ ([id number]) 2000 F Date Time Provider Department 10/13/24 LALITO ROCHA During your visit today, we recorded the following information about you: Jacinta Oscar 10/13/2024 10:07 AM Signed Left voicemail for patient to call [phone] (direct line) to Dr. Rocha's office to [...] *09/18/2024 Encounter Status:Closed by JACINTA OSACR on 10/13/24 [facility] 10-12-2024 ROSA Telephone (ENDOAL) ----- VAL RUIZ ([id number]) 2000 F Date Time Provider Department 10/12/24 LALITO ROCHA During your visit today, we recorded the following information about you: [place] 10/12/2024 11:15 AM Signed Left voicemail for patient to call [phone] to schedule appointment [address] Rocha. Allergies [...] Status:Closed by JACINTA OSCAR on 10/12/24 Normal [facility] Examination level ultrasound on 10-09-2024 Indication Early [...] Hadlock Femur 21.0 mm 16w 2d 18% Nroma Humerus 21.9 mm 16w 5d 35% Norma EFW 171 g 16w 5d 20% Hadlock EFW (lb) 0 lb EFW (oz) 6 oz EFW by: Hadlock (HC-AC-FL) Extended Automatic Pad Making Machine Operator 6.2 mm Extremities / Bony Struc FL / HC 0.15 2% Hadlock Other Structures FHR 149 bpm Anatomy Cranium: normal Lateral ventricles: normal Choroid plexus: normal Midline falx: normal Cerebellum: normal Cisterna magna: normal Lips: normal 4-chamber view: normal RVOT view: normal LVOT view: normal 3-vessel view: normal 0-himhpu-nahnysv view: normal Heart / Thorax Aortic arch [...] Read By: Ly Nugent M.D. MATERNAL MEDICINE [facility] Radiology Study observation (narrative) [facility] URINE OB DIP B/Oon 5 Glucose Ql (U) Negative Neg mg/dL [facility] Interpretation and review of laboratory results Normal [facility] Protein.monoclonal (U) [Mass/Vol] Negative Neg mg/dL [facility] Abdomen/Pelvis WITH Contrast on 10-07-2024 Abdomen/Pelvis WITH Contrast [facility] Imaging Services [address] [place] [address] Abdomen/Pelvis WITH Contrast MR#: [id number] Acct: [id number] Name: VAL RUIZ Rep #: [id number] : 2000 F 24 From: Rajiv Gilbert PCP: Care Physician,No Primary Status: REG ER Study: Abdomen/Pelvis WITH Contrast Date of Exam: Exam# [id number] Ordering Dr: Jay Alvarez MD [id number] STUDY: CT ABDOMEN AND PELVIS WITH CONTRAST [...] Jay Alvarez MD; No Primary Care Physician Regulatory Attorney: Signed Normal [facility] CBC W/Diff, Automatedon 09-23 Absolute Lymph 1.38 X10 3/uL Normal 0.83-4.51 [facility] Comment on above: Performed By: #### L 400.0001 #### [facility] [address] [place], [address] Absolute Neut 5.1 X10 3/uL Normal 2.0-7.7 [facility] Comment on above: Performed By: #### L 400.0001 #### [facility] [address] [place], [address] Basophils/100 WBC (Bld) 0.4 % Normal 0-1 [facility] Comment on above: Performed By: #### L 400.0001 #### [facility] [address] [place], [address] Eosinophils/100 WBC (Bld) 2.8 % Normal 0-5 [facility] Comment on above: Performed By: #### L 400.0001 #### [facility] [address] [place], [address] Erythrocyte distribution width (RBC) [Ratio] 15.7 % High 11.6-14.6 [facility] Comment on above: Performed By: #### L 400.0001 #### [facility] [address] [place], [address] Hematocrit (Bld) [Volume fraction] 31.9 % Low 37-47 [facility] Comment on above: Performed By: #### L 400.0001 #### [facility] [address] [place], [address] Hemoglobin (Bld) [Mass/Vol] 10.0 g/dL Low 12.0-15.0 [facility] Comment on above: Performed By: #### L 400.0001 #### [facility] [address] [place], [address] IG% 0.300 Normal 0.0-0.9 [facility] Comment on above: Result Comment: IG% - Immature Granulocytes (promyelocytes, myelocytes and metamyelocytes) > 1% indicates that a LEFT SHIFT is Present. Performed By: #### L 400.0001 #### [facility] [address] [place], [address] Lymphocytes/100 WBC (Bld) 19.6 % Normal 19-41 [facility] Comment on above: Performed By: #### L 400.0001 #### [facility] [address] [place], [address] MCH (RBC) [Entitic mass] 28.2 pg Normal 27.0-32.0 [facility] Comment on above: Performed By: #### L 400.0001 #### [facility] [address] [place], [address] MCHC (RBC) [Mass/Vol] 31.3 g/dL Low 32-36 [facility] Comment on above: Performed By: #### L 400.0001 #### [facility] [address] [place], [address] MCV (RBC) [Entitic vol] 90.1 fL Normal 81-99 [facility] Comment on above: Performed By: #### L 400.0001 #### [facility] [address] [place], [address] Monocytes/100 WBC (Bld) 4.7 % Normal 0-10 [facility] Comment on above: Performed By: #### L 400.0001 #### [facility] [address] [place], [address] Neutrophils/100 WBC (Bld) 72.2 % High 47-70 [facility] Comment on above: Performed By: #### L 400.0001 #### [facility] [address] [place], [address] Nucleated RBC (Bld) [#/Vol] 0 10*3/uL Normal 0-5 [facility] Comment on above: Performed By: #### L 400.0001 #### [facility] [address] [place], [address] Platelet mean volume (Bld) [Entitic vol] 11.2 fL Normal 6.2-12.0 [facility] Comment on above: Performed By: #### L 400.0001 #### [facility] [address] [place], [address] Platelets (Bld) [#/Vol] 277 10*3/uL Normal 150-450 [facility] Comment on above: Performed By: #### L 400.0001 #### [facility] [address] [place], [address] RBC (Bld) [#/Vol] 3.54 10*6/uL Low 4.2-5.4 [facility] Comment on above: Performed By: #### L 400.0001 #### [facility] [address] [place], [address] RDW SD 51.7 fl High 35.1-43.9 [facility] Comment on above: Performed By: #### L 400.0001 #### [facility] [address] [place], [address] WBC (Bld) [#/Vol] 7.0 10*3/uL Normal 4.4-11.0 [facility] Comment on above: Performed By: #### L 400.0001 #### [facility] [address] [place], [address] Comprehensive Metabolic Prof ilon 10-07-2024 Albumin [Mass/Vol] 2.7 g/dL Low 3.2-5.0 [facility] Comment on above: Performed By: #### L 400.0001 #### [facility] [address] [place], [address] Albumin/Globulin [Mass ratio] 0.5 {ratio} Low 0.9-2.4 [facility] Comment on above: Performed By: #### L 400.0001 #### [facility] [address] [place], [address] ALK P 68 U/L Normal 45-117 [facility] Comment on above: Performed By: #### L 400.0001 #### [facility] [address] [place], [address] ALT [Catalytic activity/Vol] 10 U/L Low 13-56 [facility] Comment on above: Performed By: #### L 400.0001 #### [facility] [address] [place], [address] AST [Catalytic activity/Vol] 11 U/L Low 15-37 [facility] Comment on above: Performed By: #### L 400.0001 #### [facility] [address] [place], [address] Bilirubin [Mass/Vol] 0.30 mg/dL Normal 0.20-1.00 [facility] Comment on above: Result Comment: For patients on eltrombopag therapy, use of Dimension [place] TBIL is not recommended. Performed By: #### L 400.0001 #### [facility] [address] [place], [address] BUN/CRE 10.2 RATIO Normal 10-20 [facility] Comment on above: Performed By: #### L 400.0001 #### [facility] [address] [place], [address] CA,Total 9.0 mg/dL Normal 8.5-10.1 [facility] Comment on above: Performed By: #### L 400.0001 #### [facility] [address] [place], [address] Chloride [Moles/Vol] 106 mmol/L Normal 98-107 [facility] Comment on above: Performed By: #### L 400.0001 #### [facility] [address] [place], [address] CO2 [Moles/Vol] 22.0 mmol/L Normal 21.0-32.0 [facility] Comment on above: Performed By: #### L 400.0001 #### [facility] [address] [place], [address] Creatinine [Mass/Vol] 0.59 mg/dL Normal 0.55-1.02 [facility] Comment on above: Result Comment: The validity of the calculated GFR GFRAA in patients over 70 years has not been determined. Clinical correlation is essential. Performed By: #### L 400.0001 #### [facility] [address] [place], [address] ECRCL 136.26 ml/min Normal [facility] Comment on above: Performed By: #### L 400.0001 #### [facility] [address] [place], [address] EST GFR - AA 161 mL/min Normal >60 [facility] Comment on above: Result Comment: Afri can [place] GFR Calc Performed By: #### L 400.0001 #### [facility] [address] [place], [address] GAP 8 Normal 5-15 [facility] Comment on above: Performed By: #### L 400.0001 #### [facility] [address] [place], [address] GFR/1.73 sq M.predicted among non-blacks MDRD (S/P/Bld) [Vol rate/Area] 133 mL/min/{1.73_m2} Normal >60 [facility] Comment on above: Result Comment: Non- GFR Calc Performed By: #### L 400.0001 #### [facility] [address] [place], [address] Globulin (S) [Mass/Vol] 5.0 g/dL High 2.2-4.2 [facility] Comment on above: Performed By: #### L 400.0001 #### [facility] [address] [place], [address] Glucose [Mass/Vol] 139 mg/dL High 74-106 [facility] Comment on above: Result Comment: Fast ing Glucose result greater than or equal to 126 mg/dL suggests DIABETES MELLITUS per A.D.A. criteria. Performed By: #### L 400.0001 #### [facility] [address] [place], [address] Potassium [Moles/Vol] 3.5 mmol/L Normal 3.5-5.1 [facility] Comment on above: Performed By: #### L 400.0001 #### [facility] [address] [place], [address] Sodium [Moles/Vol] 136 mmol/L Normal 136-145 [facility] Comment on above: Performed By: #### L 400.0001 #### [facility] [address] [place], [address] T PROT 7.7 g/dL Normal 6.4-8.2 [facility] Comment on above: Performed By: #### L 400.0001 #### [facility] [address] [place], [address] Urea nitrogen [Mass/Vol] 6 mg/dL Low 7-18 [facility] Comment on above: Performed By: #### L 400.0001 #### [facility] [address] [place], [address] Emergency Department Summary on 10-07-2024 Emergency Department Summary [facility] Medical Records Department [address] [place] [address] Emergency Department Summary 10/07/24 MR#: [id number] Acct: [id number] Name: VAL RUIZ Rep #: [id number] : 2000 24 From: Jay Alvarez MD PCP: Care Physician,No Primary Status:REG ER Location: ED ADDENDUM by Dr. Maciel Campos DO on 10/07/24 at 4561 Patient's case signed out to me to [...] discuss the case with Dr. Carlin her CORPORATE BANKING OFFICER. Called back Dr. Carlin and discussed the results with her and she states that she can go home and follow-up with her in the office. She is recommending Tylenol as needed and heat for symptomatic control. Patient is agreeable this plan all question concerns answered she was discharged home in stable condition. 10/07/24 5351 Cosigner Signature (if applicable): cc: No Primary [...] any imaging currently until after discussion with CORPORATE BANKING OFFICER. She usually sees the skill labor Kati Rolle at the [facility]. I reviewed her laboratory work and compared [...] ultrasound 2 days ago on my review. Kalebina (more content not included)... Normal [facility] Lipaseon 10-07-2024 Lipase [Catalytic activity/Vol] 27 U/L Normal 13-75 [facility] Comment on above: Result Comment: Di delgadillo note: LIPASE revised reference range effective 23. New Lipase methodology. Expected to produce lower values than the previous assay method. NEW Reference Range: 13 - 75 U/L Performed By: #### L 501.2450, L100.0100, L500.4050 #### [facility] [address] [place], [place], [address] Urinalysis, Completeon 10-07 BACTERIA 3+ /hpf Normal None Seen [facility] Comment on above: Order Comment: DARREN CTOR TO SPECIFY Performed By: #### L 400.0001 #### [facility] [address] [place], [address] EPI,TRANSITION 0-5 SEEN Normal 0-5 [facility] Comment on above: Order Comment: DARREN CTOR TO SPECIFY Performed By: #### L 400.0001 #### [facility] [address] [place], [address] WBC 0-5 SEEN Normal 0-5 [facility] Comment on above: Order Comment: COLLE CTOR TO SPECIFY Performed By: #### L 400.0001 #### [facility] [address] [place], [address] EPI,SQUAMOUS 5-10 SEEN Normal 5-10 [facility] Comment on above: Order Comment: COLLE CTOR TO SPECIFY Performed By: #### L 400.0001 #### [facility] [address] [place], [address] Mucus Ql (Urine sed) 0 SEEN Normal [facility] Comment on above: Order Comment: COLLE CTOR TO SPECIFY Performed By: #### L 400.0001 #### [facility] [address] [place], [address] RBC 0 SEEN Normal 0-5 [facility] Comment on above: Order Comment: COLLE CTOR TO SPECIFY Performed By: #### L 400.0001 #### [facility] [address] [place], [address] CBC W/Diff, Automatedon -09 25-2024 Absolute Lymph 1.41 X10 3/uL Normal 0.83-4.51 [facility] Comment on above: Performed By: #### L 501.2450, L100.0100, L500.4050 #### [facility] [address] [place], [address] Absolute Neut 5.1 X10 3/uL Normal 2.0-7.7 [facility] Comment on above: Performed By: #### L 501.2450, L100.0100, L500.4050 #### [facility] [address] [place], [address] Basophils/100 WBC (Bld) 0.6 % Normal 0-1 [facility] Comment on above: Performed By: #### L 501.2450, L100.0100, L500.4050 #### [facility] [address] [place], [address] Eosinophils/100 WBC (Bld) 3.9 % Normal 0-5 [facility] Comment on above: Performed By: #### L 501.2450, L100.0100, L500.4050 #### [facility] [address] [place], [address] Erythrocyte distribution width (RBC) [Ratio] 15.7 % High 11.6-14.6 [facility] Comment on above: Performed By: #### L 501.2450, L100.0100, L500.4050 #### [facility] [address] [place], [address] Hematocrit (Bld) [Volume fraction] 31.3 % Low 37-47 [facility] Comment on above: Performed By: #### L 501.2450, L100.0100, L500.4050 #### [facility] [address] [place], [address] Hemoglobin (Bld) [Mass/Vol] 10.0 g/dL Low 12.0-15.0 [facility] Comment on above: Performed By: #### L 501.2450, L100.0100, L500.4050 #### [facility] [address] [place], [address] IG% 0.400 Normal 0.0-0.9 [facility] Comment on above: Result Comment: IG% - Immature Granulocytes (promyelocytes, myelocytes and metamyelocytes) > 1% indicates that a LEFT SHIFT is Present. Performed By: #### L 501.2450, L100.0100, L500.4050 #### [facility] [address] [place], [address] Lymphocytes/100 WBC (Bld) 19.6 % Normal 19-41 [facility] Comment on above: Performed By: #### L 501.2450, L100.0100, L500.4050 #### [facility] [address] [place], [address] MCH (RBC) [Entitic mass] 28.5 pg Normal 27.0-32.0 [facility] Comment on above: Performed By: #### L 501.2450, L100.0100, L500.4050 #### [facility] [address] [place], [address] MCHC (RBC) [Mass/Vol] 31.9 g/dL Low 32-36 [facility] Comment on above: Performed By: #### L 501.2450, L100.0100, L500.4050 #### [facility] [address] [place], [address] MCV (RBC) [Entitic vol] 89.2 fL Normal 81-99 [facility] Comment on above: Performed By: #### L 501.2450, L100.0100, L500.4050 #### [facility] [address] [place], [address] Monocytes/100 WBC (Bld) 5.5 % Normal 0-10 [facility] Comment on above: Performed By: #### L 501.2450, L100.0100, L500.4050 #### [facility] [address] [place], [address] Neutrophils/100 WBC (Bld) 70.0 % Normal 47-70 [facility] Comment on above: Performed By: #### L 501.2450, L100.0100, L500.4050 #### [facility] [address] [place], [address] Nucleated RBC (Bld) [#/Vol] 0 10*3/uL Normal 0-5 [facility] Comment on above: Performed By: #### L 501.2450, L100.0100, L500.4050 #### [facility] [address] [place], [address] Platelet mean volume (Bld) [Entitic vol] 11.0 fL Normal 6.2-12.0 [facility] Comment on above: Performed By: #### L 501.2450, L100.0100, L500.4050 #### [facility] [address] [place], [address] Platelets (Bld) [#/Vol] 240 10*3/uL Normal 150-450 [facility] Comment on above: Performed By: #### L 501.2450, L100.0100, L500.4050 #### [facility] [address] [place], [address] RBC (Bld) [#/Vol] 3.51 10*6/uL Low 4.2-5.4 [facility] Comment on above: Performed By: #### L 501.2450, L100.0100, L500.4050 #### [facility] [address] [place], [address] RDW SD 50.5 fl High 35.1-43.9 [facility] Comment on above: Performed By: #### L 501.2450, L100.0100, L500.4050 #### [facility] [address] [place], [address] WBC (Bld) [#/Vol] 7.2 10*3/uL Normal 4.4-11.0 [facility] Comment on above: Performed By: #### L 501.2450, L100.0100, L500.4050 #### [facility] [address] [place], [address] Comprehensive Metabolic Prof ilon 10-05-2024 Albumin [Mass/Vol] 2.6 g/dL Low 3.2-5.0 [facility] Comment on above: Performed By: #### L 501.2450, L100.0100, L500.4050 #### [facility] [address] [place], [address] Albumin/Globulin [Mass ratio] 0.5 {ratio} Low 0.9-2.4 [facility] Comment on above: Performed By: #### L 501.2450, L100.0100, L500.4050 #### [facility] [address] [place], [address] ALK P 68 U/L Normal 45-117 [facility] Comment on above: Performed By: #### L 501.2450, L100.0100, L500.4050 #### [facility] [address] [place], [address] ALT [Catalytic activity/Vol] 10 U/L Low 13-56 [facility] Comment on above: Performed By: #### L 501.2450, L100.0100, L500.4050 #### [facility] [address] [place], [address] AST [Catalytic activity/Vol] 20 U/L Normal 15-37 [facility] Comment on above: Result Comment: Slig ht Hemolysis, Result may be falsely increased. Performed By: #### L 501.2450, L100.0100, L500.4050 #### [facility] [address] [place], [address] Bilirubin [Mass/Vol] 0.50 mg/dL Normal 0.20-1.00 [facility] Comment on above: Result Comment: For patients on eltrombopag therapy, use of Dimension [place] TBIL is not recommended. Performed By: #### L 501.2450, L100.0100, L500.4050 #### [facility] [address] [place], [address] BUN/CRE 10.6 RATIO Normal 10-20 [facility] Comment on above: Performed By: #### L 501.2450, L100.0100, L500.4050 #### [facility] [address] [place], [address] CA,Total 9.0 mg/dL Normal 8.5-10.1 [facility] Comment on above: Performed By: #### L 501.2450, L100.0100, L500.4050 #### [facility] [address] [place], [address] Chloride [Moles/Vol] 105 mmol/L Normal 98-107 [facility] Comment on above: Performed By: #### L 501.2450, L100.0100, L500.4050 #### [facility] [address] [place], [address] CO2 [Moles/Vol] 23.0 mmol/L Normal 21.0-32.0 [facility] Comment on above: Performed By: #### L 501.2450, L100.0100, L500.4050 #### [facility] [address] [place], [address] Creatinine [Mass/Vol] 0.57 mg/dL Normal 0.55-1.02 [facility] Comment on above: Result Comment: The validity of the calculated GFR GFRAA in patients over 70 years has not been determined. Clinical correlation is essential. Performed By: #### L 501.2450, L100.0100, L500.4050 #### [facility] [address] [place], [address] ECRCL 140.65 ml/min Normal [facility] Comment on above: Performed By: #### L 501.2450, L100.0100, L500.4050 #### [facility] [address] [place], [address] EST GFR - AA 167 mL/min Normal >60 [facility] Comment on above: Result Comment: Afri can [place] GFR Calc Performed By: #### L 501.2450, L100.0100, L500.4050 #### [facility] [address] [place], [address] GAP 8 Normal 5-15 [facility] Comment on above: Performed By: #### L 501.2450, L100.0100, L500.4050 #### [facility] [address] [place], [address] GFR/1.73 sq M.predicted among non-blacks MDRD (S/P/Bld) [Vol rate/Area] 138 mL/min/{1.73_m2} Normal >60 [facility] Comment on above: Result Comment: Non- GFR Calc Performed By: #### L 501.2450, L100.0100, L500.4050 #### [facility] [address] [place], [address] Globulin (S) [Mass/Vol] 4.8 g/dL High 2.2-4.2 [facility] Comment on above: Performed By: #### L 501.2450, L100.0100, L500.4050 #### [facility] [address] [place], [address] Glucose [Mass/Vol] 116 mg/dL High 74-106 [facility] Comment on above: Result Comment: Fast ing Glucose result from 100 to 125 mg/dL suggests IMPAIRED HOMEOSTASIS per A.D.A. criteria. Performed By: #### L 501.2450, L100.0100, L500.4050 #### [facility] [address] [place], [address] Potassium [Moles/Vol] 3.7 mmol/L Normal 3.5-5.1 [facility] Comment on above: Result Comment: Slig ht Hemolysis, Result may be falsely increased. Performed By: #### L 501.2450, L100.0100, L500.4050 #### [facility] [address] [place], [address] Sodium [Moles/Vol] 136 mmol/L Normal 136-145 [facility] Comment on above: Performed By: #### L 501.2450, L100.0100, L500.4050 #### [facility] [address] [place], [address] T PROT 7.4 g/dL Normal 6.4-8.2 [facility] Comment on above: Performed By: #### L 501.2450, L100.0100, L500.4050 #### [facility] [address] [place], [address] Urea nitrogen [Mass/Vol] 6 mg/dL Low 7-18 [facility] Comment on above: Performed By: #### L 501.2450, L100.0100, L500.4050 #### [facility] [address] [place], [address] Emergency Department Summary on 10-05-2024 Emergency Department Summary [facility] Medical Records Department [address] [place] [address] Emergency Department Summary 10/05/24 MR#: [id number] Acct: [id number] Name: VAL RUIZ Rep #: [id number] : 2000 24 From: Lonnie Kumari DO PCP: Care Physician,No Primary Status:DEP ER Location: ED HPI History of Present Illness Chief Complaint: Abd Pain Narrative Narrative: Chief complaint and HPI: Right upper quadrant abdominal pain. 24-year-old female who is 17 weeks presents for evaluation of right upper quadrant abdominal pain. Patient does have gestational diabetes but otherwise has been unremarkable. Patient follows with [facility] [employer] OFF[employer]. Patient states yesterday she developed some right [...] intact Psych: Cooperative, appropriate mood and affect PFSH PFSH Allergy/AdvReac Type Severity Reaction Status Date / [...] or pelvic pain. No vaginal bleeding. Patient's CORPORATE BANKING OFFICER group at [facility] was consulted and patient was discussed with the skill labor on-call. Patient will follow-up in their office. She recommended heart tones as long as they are unremarkable patient stable to discharge home. heart tones 136. Patient stable to discharge home. Return precautions explained. Follow-up with CORPORATE BANKING OFFICER. Tylenol as needed for pain. Impression: 1. [...] % (Auto) 70.0 Lymph % (Auto) 19.6 [place] % (Auto) 5.5 Eos % (Auto) 3.9 [...] 09:55 IMPR (more content not included)... Normal [facility] Gallbladderon 10-05-2024 Gallbladder [facility] Imaging Services [address] [place] [address] Gallbladder MR#: [id number] Acct: [id number] Name: VAL RUIZ Rep #: [id number] : 2000 F 24 From: Felice street MD PCP: Care Physician,No Primary Status: REG ER Study: Gallbladder Date of Exam: 10/05/24 Exam# [id number] Ordering Dr: Lonnie Kumari DO [id number] STUDY: ABDOMINAL ULTRASOUND - RIGHT UPPER QUADRANT [...] at 11:16 EST , CC: Dr. Lonnie Klusty-Cortez, DO; No Primary Care Physician Regulatory Attorney: Signed Normal [facility] Lipaseon 10-05-2024 Lipase [Catalytic activity/Vol] 19 U/L Normal 13-75 [facility] Comment on above: Result Comment: Di delgadillo note: LIPASE revised reference range effective 23. New Lipase methodology. Expected to produce lower values than the previous assay method. NEW Reference Range: 13 - 75 U/L Performed By: #### L 501.2450, L100.0100, L500.4050 #### [facility] [address] [place], [address] CNNURSEon 09-22-2024 CNNURSE Nurse Visit (ENDIMT) ----- VAL RUIZ ([id number]) 2000 F Date Time Provider Department 09/22/24 1:00 PM JANICE COLE During your visit today, we recorded the following information about you: Janice Cole RN 09/22/2024 1:24 PM Signed DIABETES CARE AND EDUCATION VISIT Location: [place] Type of visit: In person individual PATIENT'S [...] TIME: 12:45 PM Referring Provider: ELBA KHANNA [[id number]] Allergies As of Date: 09/22/2024 Noted Allergy Reaction CEPHALEXIN 05/01/2022 2 - Rash Date Reviewed: 09/11/2024 Reviewed by: Melissa Aguilera MD - Fully Assessed Visit Diagnosis:Diet controlled gestational diabetes mellitus (GDM) in second trimester [O24.410] Order(s):CONSULT TO DIABETES EDUCATION DSME [4656246] Order #: [id number]: 2 Prescriptions as of 09/22/2024 - Blood-Glucose [...] Encounter Status:Closed by JANICE COLE on 09/22/24 [facility] Yoly 09-18-2024 ROSA Telephone (OBGYWM) ----- VAL RUIZ ([id number]) 2000 F Date Time Provider Department 09/18/24 ELBA KHANNA During your visit today, we recorded the following information about you: Elba Khanna APRN.FURNACE STOCK INSPECTOR 09/18/2024 2:08 PM Signed Please notify patient: Early 1 hour >200, consistent with GDM. Supplies ordered. Nutrition consult and diabetes consult placed. Growth ultrasounds every 4 weeks at 28 weeks ordered. Patient to bring glucose logs to next appointment. Elba Khanna APRN.Edel Armas RN 09/18/2024 2:31 PM Signed Patient notified of results, verbalizes understanding of instructions. Patient transferred to [facility] to make appointments. Edel Rios RN [...] times daily.Disp: 200 EachRfl: 8 OBSTETRIC ULTRASOUND [facility] [3542985] Order #: [id number]: 1 STANDING CONSULT TO DIABETES EDUCATION DSME [1745179] Order #: [id number]: 2 FUTURE CONSULT TO NUTRITION THERAPY [9020] Order #: [id number]: 4 FUTURE Prescriptions as of 09/18/2024 - [...] Status:Closed by EDEL RIOS on 09/18/24 Normal [facility] GESTATIONAL GLUCOSE SCREEN, 1-HOUR, 50 GRAM, NON-FASTINGon 09-18-2024 Glucose [Mass/Vol] 312 mg/dL High 74-134 [facility] Comment on above: Order Comment: Speci men Type: BLOOD SPECIMEN Ordering Facility: [facility] Address: [address] [place] [address] Result Comment: [facility] Congress of Obstetricians and Gynecologists (Juana/Darell) guidelines state a gestational diabetes mellitus positive screen is made, in women not previously diagnosed with overt diabetes, when the 1 hr plasma glucose level is equal to or above 140 mg/dL. [facility] Gr[facility] Maintenance Worker and [facility] [place] recommends a 135 mg/dL cutoff. Performed By: #### 5 7021-8 #### [facility] VICTOR HUGOIA [id number] [address] [place] [address] [facility] CNPSirena 09-15-2024 CNPN Telephone (OBGYWM) ----- VAL RUIZ ([id number]) 2000 F Date Time Provider Department 09/15/24 KATI ROLLE During your visit today, we recorded the following information about you: Lisa Thompson RN 09/15/2024 9:50 AM Signed ----- Message from Kati Rolle [...] Diagnosis:14 weeks gestation of [Z3A.14] Order(s):OBSTETRIC ULTRASOUND [facility] [[id number]] Order #: [id number]: 1 FUTURE Prescriptions as of 09/17/2024 - [...] Status:Closed by KATI ROLLE on 09/17/24 Normal [facility] nuchal translucency me asured by Ivan 09-12-2024 Indication First trimester anatomic survey Maternal obesity, BMI >30 Impression REMOTE READ The patient is referred for a first trimester anatomy scan including nuchal translucency measurement as clinically indicated. - Single, live, intrauterine . - [place] rump length measurement is consistent with the [...] view: visualized 4-chamber view with color: visualized [id number] view: normal Abdominal cord insertion: normal Stomach: [...] Read By: Ly Nugent M.D. MATERNAL MEDICINE [facility] CBC W Auto Differential pane l (Bld)on 09-11-2024 Basophils (Bld) [#/Vol] 0.03 10*3/uL Normal <0.11 [facility] Comment on above: Order Comment: Speci men Type: BLOOD SPECIMEN Ordering Facility: [facility] Address: [address] [place] [address] Performed By: #### M AT21 #### [facility] CLIA [id number] [address] [place] [address] Basophils/100 WBC (Bld) 0.5 % Normal [facility] Comment on above: Order Comment: Speci men Type: BLOOD SPECIMEN Ordering Facility: [facility] Address: [address] [place] [address] Performed By: #### M AT21 #### [facility] CLIA [id number] [address] [place] [address] Differential cell count method Nom (Bld) Auto Normal [facility] Comment on above: Order Comment: Speci men Type: BLOOD SPECIMEN Ordering Facility: [facility] Address: [address] [place] [address] Performed By: #### M AT21 #### [facility] CLIA [id number] [address] [place] [address] Eosinophils (Bld) [#/Vol] 0.21 10*3/uL Normal <0.46 [facility] Comment on above: Order Comment: Speci men Type: BLOOD SPECIMEN Ordering Facility: [facility] Address: [address] [place] [address] Performed By: #### M AT21 #### [facility] CLIA [id number] [address] [place] [address] Eosinophils/100 WBC (Bld) 3.4 % Normal [facility] Comment on above: Order Comment: Speci men Type: BLOOD SPECIMEN Ordering Facility: [facility] Address: [address] [place] [address] Performed By: #### M AT21 #### [facility] CLIA [id number] [address] [place] [address] Erythrocyte distribution width (RBC) [Ratio] 16.0 % High 11.5-15.0 [facility] Comment on above: Order Comment: Speci men Type: BLOOD SPECIMEN Ordering Facility: [facility] Address: [address] [place] [address] Performed By: #### M AT21 #### [facility] CLIA [id number] [address] [place] [address] Hematocrit (Bld) [Volume fraction] 31.4 % Low 36.0-46.0 [facility] Comment on above: Order Comment: Speci men Type: BLOOD SPECIMEN Ordering Facility: [facility] Address: [address] [place] [address] Performed By: #### M AT21 #### [facility] CLIA [id number] [address] [place] [address] Hemoglobin (Bld) [Mass/Vol] 10.1 g/dL Low 11.5-15.5 [facility] Comment on above: Order Comment: Speci men Type: BLOOD SPECIMEN Ordering Facility: [facility] Address: [address] [place] [address] Performed By: #### M AT21 #### [facility] CLIA [id number] [address] [place] [address] Immature granulocytes (Bld) [#/Vol] 10*3/uL Normal <0.10 [facility] Comment on above: Order Comment: Speci men Type: BLOOD SPECIMEN Ordering Facility: [facility] Address: [address] [place] [address] Performed By: #### M AT21 #### [facility] CLIA [id number] [address] [place] [address] Immature granulocytes/100 WBC (Bld) 0.3 % Normal [facility] Comment on above: Order Comment: Speci men Type: BLOOD SPECIMEN Ordering Facility: [facility] Address: [address] [place] [address] Performed By: #### M AT21 #### [facility] CLIA [id number] [address] [place] [address] Lymphocytes (Bld) [#/Vol] 1.85 10*3/uL Normal 1.00-4.00 [facility] Comment on above: Order Comment: Speci men Type: BLOOD SPECIMEN Ordering Facility: [facility] Address: [address] [place] [address] Performed By: #### M AT21 #### [facility] CLIA [id number] [address] [place] [address] Lymphocytes/100 WBC (Bld) 30.1 % Normal [facility] Comment on above: Order Comment: Speci men Type: BLOOD SPECIMEN Ordering Facility: [facility] Address: [address] [place] [address] Performed By: #### M AT21 #### [facility] CLIA [id number] [address] [place] [address] MCH (RBC) [Entitic mass] 28.2 pg Normal 26.0-34.0 [facility] Comment on above: Order Comment: Speci men Type: BLOOD SPECIMEN Ordering Facility: [facility] Address: [address] [place] [address] Performed By: #### M AT21 #### [facility] CLIA [id number] [address] [place] [address] MCHC (RBC) [Mass/Vol] 32.2 g/dL Normal 30.5-36.0 [facility] Comment on above: Order Comment: Speci men Type: BLOOD SPECIMEN Ordering Facility: [facility] Address: [address] [place] [address] Performed By: #### M AT21 #### [facility] CLIA [id number] [address] [place] [address] MCV (RBC) [Entitic vol] 87.7 fL Normal 80.0-100.0 [facility] Comment on above: Order Comment: Speci men Type: BLOOD SPECIMEN Ordering Facility: [facility] Address: [facility] [place] [address] Performed By: #### M AT21 #### [facility] CLIA [id number] [address] [place] [address] Monocytes (Bld) [#/Vol] 0.34 10*3/uL Normal <0.87 [facility] Comment on above: Order Comment: Speci men Type: BLOOD SPECIMEN Ordering Facility: [facility] Address: [address] [place] [address] Performed By: #### M AT21 #### [facility] CLIA [id number] [address] [place] [address] Monocytes/100 WBC (Bld) 5.5 % Normal [facility] Comment on above: Order Comment: Speci men Type: BLOOD SPECIMEN Ordering Facility: [facility] Address: [address] [place] [address] Performed By: #### M AT21 #### [facility] CLIA [id number] [address] [place] [address] Neutrophils (Bld) [#/Vol] 3.69 10*3/uL Normal 1.45-7.50 [facility] Comment on above: Order Comment: Speci men Type: BLOOD SPECIMEN Ordering Facility: [facility] Address: [address] [place] [address] Performed By: #### M AT21 #### [facility] CLIA [id number] [address] [place] [address] Neutrophils/100 WBC (Bld) 60.2 % Normal [facility] Comment on above: Order Comment: Speci men Type: BLOOD SPECIMEN Ordering Facility: [facility] Address: [address] [place] [address] Performed By: #### M AT21 #### [facility] CLIA [id number] [address] [place] [address] Nucleated RBC (Bld) [#/Vol] 10*3/uL Normal <0.01 [facility] Comment on above: Order Comment: Speci men Type: BLOOD SPECIMEN Ordering Facility: [facility] Address: [address] [place] [address] Performed By: #### M AT21 #### [facility] CLIA [id number] [address] [place] [address] Nucleated RBC/100 WBC (Bld) [Ratio] 0.0 /100 WBC Normal [facility] Comment on above: Order Comment: Speci men Type: BLOOD SPECIMEN Ordering Facility: [facility] Address: [address] [place] [address] Performed By: #### M AT21 #### [facility] CLIA [id number] [address] [place] [address] Platelet mean volume (Bld) [Entitic vol] 10.1 fL Normal 9.0-12.7 [facility] Comment on above: Order Comment: Speci men Type: BLOOD SPECIMEN Ordering Facility: [facility] Address: [address] [place] [address] Performed By: #### M AT21 #### [facility] CLIA [id number] [address] [place] [address] Platelets (Bld) [#/Vol] 303 10*3/uL Normal 150-400 [facility] Comment on above: Order Comment: Speci men Type: BLOOD SPECIMEN Ordering Facility: [facility] Address: [address] [place] [address] Performed By: #### M AT21 #### [facility] CLIA [id number] [address] [place] [address] RBC (Bld) [#/Vol] 3.58 10*6/uL Low 3.90-5.[address] [facility] Comment on above: Order Comment: Speci men Type: BLOOD SPECIMEN Ordering Facility: [facility] Address: [address] [place] [address] Performed By: #### M AT21 #### [facility] CLIA [id number] [address] [place] [address] WBC (Bld) [#/Vol] 6.14 10*3/uL Normal 3.70-11.[address] [facility] Comment on above: Order Comment: Speci men Type: BLOOD SPECIMEN Ordering Facility: [facility] Address: [address] [place] [address] Performed By: #### M AT21 #### [facility] CLIA [id number] [address] [place] [address] nuchal translucency me asured by USon 09-11-2024 Radiology Study observation (narrative) [facility] HBV surface Ag Ser Qlon 08-24 HBV surface Ag Ql (S) Negative Normal Negative [facility] Comment on above: Order Comment: Speci men Type: BLOOD SPECIMEN Ordering Facility: [facility] Address: [address] [place] [address] Performed By: #### 5 7021-8 #### [facility] CLIA [id number] [address] [place] [address] [place] HCV Ab Ser Qlon 09-11-2024 HCV Ab Ql (S) Negative Normal Negative [facility] Comment on above: Order Comment: Speci men Type: BLOOD SPECIMEN Ordering Facility: [facility] Address: [address] [place] [address] Result Comment: The result suggests no evidence of active infection with Hepatitis C virus. Should recent infection be suspected, repeat testing may be considered 4-6 weeks after this draw. Performed By: #### 1 6128-1 #### [facility] CLIA [id number] [address] [place], [place] [address] [id number] [address] [place] HIV 1+2 Ab IA Qlon HIV 1 and 2 Ab IA.rapid Nom (S/P/Bld) Normal [facility] Comment on above: Order Comment: Speci men Type: BLOOD SPECIMEN Ordering Facility: [facility] Address: [address] [place] [address] Result Comment: Test not indicated. Performed By: #### 5 7021-8 #### [facility] CLIA [id number] [address] [place] [address] [place] HIV 1+2 Ab+HIV1 p24 Ag IA Ql Non-Reactive Normal Nonreactive [facility] Comment on above: Order Comment: Speci men Type: BLOOD SPECIMEN Ordering Facility: [facility] Address: [address] [place] [address] Performed By: #### 5 7021-8 #### [facility] CLIA [id number] [address] [place] [address] [place] HIV immunoassay testing algorithm interpretation (S/P/Bld) [Interp] Normal [facility] Comment on above: Order Comment: Speci men Type: BLOOD SPECIMEN Ordering Facility: [facility] Address: [address] [place] [address] Result Comment: No e vidence of HIV-1 or HIV-2 infection. Should recent infection be suspected, repeat testing may be considered 2-3 weeks after this draw. [place] Rev. Code 3701.243(E): This information has been [...] diagnoses. Performed By: #### 5 7021-8 #### [facility] CLIA [id number] [address] [place] [address] [place] HbA1c (Bld)on 09-11-2024 Average glucose Estimated from glycated hemoglobin (Bld) [Mass/Vol] 120 mg/dL Normal [facility] Comment on above: Order Comment: Speci men Type: BLOOD SPECIMEN Ordering Facility: [facility] Address: [address] [place] [address] Result Comment: eAG: (Estimated average glucose) is a calculated value from HgbA1c and is self pay representative of the average blood glucose level in the last 2-3 month period. Performed By: #### 5 7021-8 #### [facility] CLIA [id number] [address] [place] [address] [place] HbA1c (Bld) [Mass fraction] 5.8 % High 4.3-5.6 [facility] Comment on above: Order Comment: Gerhard kim Type: BLOOD SPECIMEN Ordering Facility: [facility] Address: [address] [place] [address] Result Comment: Amer [place] Diabetes Association guidelines indicate that patients with HgbA1c in the range 5.7-6.4% are at increased risk for development of diabetes, and intervention by lifestyle modification may be beneficial. HgbA1c greater or equal to 6.5% is considered diagnostic of diabetes. Performed By: #### 5 7021-8 #### [id number] [address] [place] [address] [place] LMGINTEE10 PLUSon 09-11-2024 Cell-free DNA./Cell-free DNA.total Dosage of chromosome-specific cfDNA (cfDNA) [Molar fraction] 12% Normal [facility] Comment on above: Order Comment: Gerhard kim Type: BLOOD SPECIMEN Ordering Facility: [facility] Address: [address] [place] [address] Performed By: #### M AT21 #### [facility] CLIA [id number] [address] [place] [address] Chr 13+18+21+X+Y aneuploidy Dosage of chromosome-specific cfDNA Ql (cfDNA) Negative Normal [facility] Comment on above: Order Comment: Gerhard kim Type: BLOOD SPECIMEN Ordering Facility: [facility] Address: [address] [place] [address] Performed By: #### M AT21 #### [facility] CLIA [id number] [address] [place] [address] Chr 21 trisomy Dosage of chromosome-specific cfDNA Ql (cfDNA) Negative Normal [facility] Comment on above: Order Comment: Speci men Type: BLOOD SPECIMEN Ordering Facility: [facility] Address: [address] [place] [address] Performed By: #### M AT21 #### [facility] CLIA [id number] [address] [place] [address] Chr X and Y aneuploidy risk Sequencing Ql (cfDNA) [Interp] Not detected [facility] Comment on above: Order Comment: Speci men Type: BLOOD SPECIMEN Ordering Facility: [facility] Address: [address] [place] [address] Result Comment: Not Detected Not Detected Performed By: #### M AT21 #### [facility] CLIA [id number] [address] [place] [address] Citation Max (Reference lab test) Comment [facility] Comment on above: Order Comment: Speci men Type: BLOOD SPECIMEN Ordering Facility: [facility] Address: [address] [place] [address] Result Comment: 1. P carolina CHAMBERLAIN, et al. Lizzie Med. 2012;14(3):296-305. 2. Gregory MAE, et al. Prenat Diag. 2013;33(6):591-597. 3. Papo C, et al. Clin Chem. 2015 Apr;61(4):608-616. 4. Rory CHAMBERLAIN, et al. Lizzie Med. 2011;13(11):913-920. 5. ACOG/SMFM Practice Bulletin No. 226, Jun 2020. Performed By: #### M AT21 #### [facility] CLIA [id number] [address] [place] [address] Gestational age Estimated from conception date Scott Normal [facility] Comment on above: Order Comment: Speci men Type: BLOOD SPECIMEN Ordering Facility: [facility] Address: [address] [place] [address] Performed By: #### M AT21 #### [facility] CLIA [id number] [address] [place] [address] GESTATIONALAGE AGE > OR = 9W Yes Normal [facility] Comment on above: Order Comment: Gerhard kim Type: BLOOD SPECIMEN Ordering Facility: [facility] Address: [address] [place] [address] Performed By: #### M AT21 #### [facility] CLIA [id number] [address] [place] [address] Laboratory comment Max (Report) Comment Normal [facility] Comment on above: Order Comment: Gerhard kim Type: BLOOD SPECIMEN Ordering Facility: [facility] Address: [address] [place] [address] Result Comment: The MaterniT(R) 21 PLUS laboratory-developed test (LDT) analyzes circulating cell-free DNA from a maternal blood sample. This test is used for screening purposes and not diagnostic. Clinical correlation is recommended. Validation data on twin pregnancies is limited and the ability of this test to detect aneuploidy in higher multiple gestations has not yet been validated. Performed By: #### M AT21 #### [facility] CLIA [id number] [address] [place] [id number] division director name Nom (Provider) Comment Normal [facility] Comment on above: Order Comment: Gerhard kim Type: BLOOD SPECIMEN Ordering Facility: [facility] Address: [address] [place] [address] Result Comment: This specimen showed an expected representation of chromosome 21, 18 and 13 material. Clinical correlation is suggested. Comment Vasile Carmichael MD, PhD, Director, [employer] Performed By: #### M AT21 #### [facility] CLIA [id number] [address] [place] [id number] LIMITATIONS OF THE TEST Comment Normal [facility] Comment on above: Order Comment: Gerhard kim Type: BLOOD SPECIMEN Ordering Facility: [facility] Address: [address] [place] [address] Result Comment: Ryne brian the results of [...] Fragmin(R)). Performed By: #### M AT21 #### [facility] CLIA [id number] [address] [place] [address] Monosomy X risk Dosage of chromosome-specific cfDNA Ql (Plasma cell-free+WBC DNA) [Interp] Not detected Normal [facility] Comment on above: Order Comment: Speci men Type: BLOOD SPECIMEN Ordering Facility: [facility] Address: [address] [place] [address] Performed By: #### M AT21 #### [facility] CLIA [id number] [address] [place] [address] NEGATIVE PREDICTIVE VALUE Note Normal [facility] Comment on above: Order Comment: Speci men Type: BLOOD SPECIMEN Ordering Facility: [facility] Address: [address] [place] [address] Result Comment: The Negative Predictive Value (NPV) for trisomy 21, 18, and 13 is greater than 99%. The NPV for SCA and ESS cannot be calculated as SCA and ESS are only reported when an abnormality is detected. Performed By: #### M AT21 #### [facility] CLIA [id number] [address] [place] [id number] NOTE Comment Normal [facility] Comment on above: Order Comment: [facility] Type: BLOOD SPECIMEN Ordering Facility: [facility] Address: [address] [place] [address] Result Comment: See Notes [employer] is a subsidiary of [employer], using the brand [employer]. This test was developed and its performance characteristics determined by [employer]. It has not been cleared or approved by the Food and Drug Administration. This laboratory is certified under the Clinical Laboratory Improvement Amendments (CLIA) as qualified to perform high complexity clinical laboratory testing and accredited by the [employer] (CAP). If there is future clinical need for adding MaterniT GENOME testing, this specimen will be available until term. [facility] samples will not be retained beyond 60 days. [facility] patients will have to send a new sample for re-sequencing ([facility] Test Code: [id number]). Performed By: #### M AT21 #### [facility] CLIA [id number] [address] [place] [address] PERFORMANCE CHARACTERISTICS Note Normal [facility] Comment on above: Order Comment: Gerhard men Type: BLOOD SPECIMEN Ordering Facility: [facility] Address: [address] [place] [address] Result Comment: ! Sex ! Accuracy: 99.4% [...] ! ! ! * As reported in [facility] database nstd37 [https://www.ncbi.nlm.nih.gov/dbvar/studies/nstd37/ ] # Estimated Sensitivity. [...] only. Performed By: #### M AT21 #### [facility] CLIA [id number] [address] [place] [address] POSITIVE PREDICTIVE VALUE N/A [facility] Comment on above: Order Comment: Speci men Type: BLOOD SPECIMEN Ordering Facility: [facility] Address: [address] [place] [address] Performed By: #### M AT21 #### [facility] CLIA [id number] [address] [place] [address] Reference Lab Test Method Comment Normal [facility] Comment on above: Order Comment: Speci men Type: BLOOD SPECIMEN Ordering Facility: [facility] Address: [address] [place] [address] Result Comment: See Notes Circulating cell-free DNA [...] 22. Performed By: #### M AT21 #### [facility] CLIA [id number] [address] [place] [address] Sex Dosage of chromosome-specific cfDNA Nom (cfDNA) Comment [facility] Comment on above: Order Comment: Speci men Type: BLOOD SPECIMEN Ordering Facility: [facility] Address: [address] [place] [address] Result Comment: Cons istent with Male Performed By: #### M AT21 #### [facility] CLIA [id number] [address] [place] [address] Test performance information Max (Unsp spec) Comment [facility] Comment on above: Order Comment: Gerhard kim Type: BLOOD SPECIMEN Ordering Facility: [facility] Address: [address] [place] [address] Result Comment: The performance characteristics of the MaterniT(R) 21 PLUS laboratory-developed test (LDT) have been determined in a clinical validation study with women at increased risk for chromosomal aneuploidy.[1-4] Performed By: #### M AT21 #### [facility] CLIA [id number] [address] [place] [address] Trisomy 13 risk Dosage of chromosome-specific cfDNA Ql (cfDNA) [Interp] Negative [facility] Comment on above: Order Comment: Gerhard kim Type: BLOOD SPECIMEN Ordering Facility: [facility] Address: [address] [place] [address] Performed By: #### M AT21 #### [facility] CLIA [id number] [address] [place] [address] Trisomy 18 risk Dosage of chromosome-specific cfDNA Ql (Plasma cell-free+WBC DNA) [Interp] Negative [facility] Comment on above: Order Comment: Gerhard kim Type: BLOOD SPECIMEN Ordering Facility: [facility] Address: [address] [place] [address] Performed By: #### M AT21 #### [facility] CLIA [id number] [address] [place] [address] RUBELLA IGG ANTIBODYon 09-11 RUBELLA IGG AB, QUAL Positive Normal Positive [facility] Comment on above: Order Comment: Gerhard kim Type: BLOOD SPECIMEN Ordering Facility: [facility] Address: [address] [place] [address] Result Comment: The result suggests recent or past exposure to Rubella virus or history of Rubella vaccination. Positive result may also be seen due to presence of passively-transferred antibodies. Please correlate with patient's history. Performed By: #### 5 7021-8 #### [facility] CLIA [id number] [address] [place] [address] [place] Reagin and Treponema pallidu m IgG and IgM [Interp]on 09-11-2024 T. pallidum IgG+IgM IA Ql (S) Non-Reactive Normal Nonreactive [facility] Comment on above: Order Comment: Speci men Type: BLOOD SPECIMEN Ordering Facility: [facility] Address: [address] [place] [address] Performed By: #### 5 7021-8 #### [facility] CLIA [id number] [address] [place] [address] [place] Reagin+T pallidum IgG+IgM Se rPl-Impon 09-11-2024 Reagin and Treponema pallidum IgG and IgM [Interp] Cannot exclude recent Treponemal infection if specimen collected within 7-10 days after appearance of suspect lesions or 2-3 weeks after an exposure. Clinical correlation is required. Normal [facility] Comment on above: Order Comment: Speci men Type: BLOOD SPECIMEN Ordering Facility: [facility] Address: [address] [place] [address] Performed By: #### 5 7021-8 #### [facility] CLIA [id number] [address] [place] [address] [place] TYPE + SCREEN PRENATALon ABO A Normal [facility] Comment on above: Order Comment: Speci men Type: BLOOD SPECIMEN Ordering Facility: [facility] Address: [address] [place] [address] Performed By: #### M AT21 #### [facility] CLIA [id number] [address] [facility] [place] [address] Rh Nom (Bld) Negative Normal [facility] Comment on above: Order Comment: Speci men Type: BLOOD SPECIMEN Ordering Facility: [facility] Address: [address] [place] [address] Performed By: #### M AT21 #### [facility] CLIA [id number] [address] [place] [address] TYPE AND SCREEN EXPIRATION 09/14/2024 23:59 Normal [facility] Comment on above: Order Comment: Speci men Type: BLOOD SPECIMEN Ordering Facility: [facility] Address: [address] [place] [address] Performed By: #### M AT21 #### [facility] CLIA [id number] [address] [place] [address] CNOVon 08-15-2024 CNOV Office Visit (UCWSTR ) ----- VAL RUIZ ([id number]) 2000 F Date Time Provider Department 08/15/24 2:15 PM JUNE CORONEL [facility] During your visit today, we recorded the following information about you: Temperature Pulse Respiration Blood pressure 97.3 degrees 80/minute 18/minute 122/78 Weight 76.5 kg June Coronel APRN.FURNACE STOCK INSPECTOR 08/15/2024 2:26 PM Signed This note was created using NoteWriter. Subjective Valdenise Ruiz is a 23 year old female. [...] UNIT-TRIMETHOPRIM 1 MG/ML EYE DROPS June Coronel APRN.CNP Allergies As of Date: 08/15/2024 Noted Allergy Reaction CEPHALEXIN 05/01/2022 2 - Rash Date Reviewed: 08/15/2024 Reviewed by: June Coronel APRN.CNP - Fully Assessed Reason for Visit: Cough [28] Cmt: Cough, congestion x 1 week and goopy eyes x 3 days Primary Visit Diagnosis:Bacterial sinusitis [J32.9, B96.89] Other Visit Diagnosis:Bacterial conjunctivitis [H10.9] Order(s):amoxicillin-clav ulanate potassium (AUGMENTIN) 875-125 mg per tabletTake 1 [...] 08/22/2024 Rou (more content not included)... [facility] CNOVon 08-10-2024 CNOV Office Visit (UCWSTR ) ----- VAL RUIZ ([id number]) 2000 F Date Time Provider Department 08/10/24 12:30 PM YONG MEDEROS [facility] During your visit today, we recorded the following information about you: Temperature Pulse Respiration Blood pressure 98.1 degrees 90/minute 21/minute 118/70 Weight 78.4 kg Yong Mederos APRN.FURNACE STOCK INSPECTOR 08/10/2024 1:22 PM Signed Subjective HPI HPI Valdenise Ruiz is a 23 year old female [...] abnormality. Dictated by : MD Yong DOZIER APRN.FURNACE STOCK INSPECTOR Allergies As of Date: 08/10/2024 Noted Allergy Reaction CEPHALEXIN 05/01/2022 2 - Rash Date Reviewed: 08/10/2024 Reviewed by: Emerald Culver MA - Fully Assessed Reason for Visit: Cough [28] Cmt: Congestion, sinus pressure x 3 days Primary Visit Diagnosis:URI, acute [J06.9] Other Visit Diagnosis:Acute cough [R05.1] Order(s):XR CHEST 2V FRONTAL/LAT [[id number]] Order #: [id number]. #:[id number] fluticasone (FLONASE) 50 mcg/actuation nasal sprayUse 2 Sprays in each nostril once daily. Rinse mouth after use.Disp: 1 EachRfl: 0 Prescriptions as of 08/10/2024 - fluticasone (FLONASE) 50 mcg/actuation nasal spray Use 2 Sprays in each nostril once daily. Rinse mouth after (more content not included)... [facility] XR CHEST 2V FRONTAL/LATon XR CHEST 2V [...] tissues: Unremarkable. IMPRESSION: No acute radiographic abnormality. Regulatory Attorney: MEDHAT Transcribe Date/Time: Aug 10 2024 12:46P Dictated by : NORA JIMENEZ MD This examination was interpreted and the report reviewed and electronically signed by: NORA JIMENEZ MD on Aug 10 2024 12:46PM EST [id number] [facility] XR Chest PA and Lateralon Radiology Study observation (narrative) [facility] IMPRESSION: No acute radiographic abnormality. Regulatory Attorney: MEDHAT Transcribe Date/Time: Aug 10 2024 12:46P Dictated [...] soft tissues: Unremarkable. DIVISION OF RADIOLOGY [facility]24 * * *Final Report* * [...] Unremarkable. IMPRESSION IMPRESSION: No acute radiographic abnormality. Regulatory Attorney: MEDHAT Transcribe Date/Time: Aug 10 2024 12:46P Dictated by : NORA JIMENEZ MD This examination was interpreted and the report reviewed and electronically signed by: NORA JIMENEZ MD on Aug 10 2024 12:46PM EST [facility] XR Chest PA and LateralOrder ed By: Ccf Provider on 08-10-2024 [facility] JASENon 08-04-2024 CNPN Telephone (OGFVWE) ----- VAL RUIZ ([id number]) 2000 F Date Time Provider Department 08/04/24 NURSE UNDERCOVER COP FRVW TECOPA OGFVWE During your visit today, we recorded the following information about you: Chapito Ventura RN 08/04/2024 8:57 AM Signed 1st risk [...] Status:Closed by CHAPITO VENTURA on 08/04/24 Normal [facility] Bacteria Ur Culton Bacteria identified Cx Nom (U) ORGANISM ID: 1 10,000 -<50,000 CFU/ml Normal urogenital oly Normal [facility] Comment on above: Performed By: #### 6 30-4 ####[facility] [id number] [place] [address] [place] C. trachomatis+N. gonorrhoea e DNA PARADISE+probe Ql (Unsp spec)on 08-03-2024 C. trachomatis rRNA PARADISE+probe Ql (Unsp spec) Negative Normal Negative for Chlamydia trachomatis by amplificaton [facility] Comment on above: Order Comment: Speci men Type: SWABOrdering Facility: [facility] Address: [address] [place] [address] Performed By: #### 3 6902-5 ####[facility] [id number] [place] [address] [place] N. gonorrhoeae rRNA PARADISE+probe Ql (Unsp spec) Negative Normal Negative for Neisseria gonorrhoeae by amplification [facility] Comment on above: Order Comment: Speci men Type: SWABOrdering Facility: [facility] Address: [address] [place] [address] Performed By: #### 3 6902-5 ####[facility] [id number] [place] [address] [place] PAP TESTon 08-03-2024 ADEQUACY Normal [facility] Comment on above: Order Comment: Speci men Type: FLUID SPECIMEN Ordering Facility: [facility] Address: [address] [place] [address] Result Comment: Sati sfactory for interpretation. No endocervical component Performed By: #### L [id number] #### [facility] CLIA [id number] [address] [place] [address] [place] CASE REPORT Normal [facility] Comment on above: Order Comment: Speci men Type: FLUID SPECIMEN Ordering Facility: [facility] Address: [address] [place] [address] Result Comment: Gyne cologic Cytology Report Case: [id number] Authorizing Provider: Kati Rolle APRN.CNM Collected: 08/03/2024 02:04 PM Ordering Location: OB/Gynecology Received: 08/03/2024 04:49 PM First Screen: Zhorova, Millie, CT, ASCP Specimen: Pap Test, ThinPrep, Cervix Performed By: #### L [id number] #### [facility] CLIA [id number] [address] [place] [address] [place] CLINICAL HISTORY, CYTOLOGY, LABORATORY AIDE (Indicate Weeks) Normal [facility] Comment on above: Order Comment: Speci men Type: FLUID SPECIMEN Ordering Facility: [facility] Address: [address] [place] [address] Performed By: #### L [id number] #### [facility] CLIA [id number] [address] [place] [address] [place] FINAL PERFORMING LAB Normal [facility] Comment on above: Order Comment: Speci men Type: FLUID SPECIMEN Ordering Facility: [facility] Address: [address] [place] [address] Result Comment: Tech nical component, auto bumper mechanic screening performed at [facility], [address] [place], [place] [id number] CLIA# [id number] Diagnostic interpretation performed at [facility], [address] [place], [place] [address] CLIA# [id number] Central Supply Supervisor: Bonifacio Trujillo M.D. Performed By: #### L [id number] #### [facility] CLIA [id number] [address] [place] [address] [place] INTERPRETATION, CYTOLOGY, LABORATORY AIDE Normal [facility] Comment on above: Order Comment: Speci men Type: FLUID SPECIMEN Ordering Facility: [facility] Address: [address] [place] [address] Result Comment: Nega tive for intraepithelial lesion or malignancy. Performed By: #### L [id number] #### [facility] CLIA [id number] [address] [place] [address] [place] LMP 06/10/2024 Normal [facility] Comment on above: Order Comment: Speci men Type: FLUID SPECIMEN Ordering Facility: [facility] Address: [address] [place] [address] Performed By: #### L [id number] #### [facility] CLIA [id number] [address] [place] [address] [place] PAP DISCLAIMER COMMENT The Pap Smear is a screening test for cervical cancer. False negative results occur with all screening tests, emphasizing the need for rescreening at recommended intervals, and clinical correlation. Normal [facility] Comment on above: Order Comment: Speci men Type: FLUID SPECIMEN Ordering Facility: [facility] Address: [address] [place] [address] Performed By: #### L [id number] #### [facility] CLIA [id number] [address] [place] [address] [place] PAP EDGE POLISHER COMMENT This specimen has be en analyzed by the ThinPrep Imaging System, an automated imaging and review system, which assists the laboratory in evaluating cells on ThinPrep Pap tests. Following automated imaging, selected santana from every slide are reviewed by a auto bumper mechanic. Normal [facility] Comment on above: Order Comment: Speci men Type: FLUID SPECIMEN Ordering Facility: [facility] Address: [address] [place] [address] Performed By: #### L [id number] #### [facility] CLIA [id number] [address] [place] [address] [id number] [place] [address] [place] POC BLOW MOLDER ULTRASOUNDon 08-03-20 Indication Viability; confirm cardiac activity Impression Single [...] Read By: Kati Rolle CNM MATERNAL MEDICINE [facility] Radiology Study observation (narrative) [facility] CNOVon 07-24-2024 CNOV Office Visit (UCWSTR ) ----- VAL RUIZ ([id number]) 2000 F Date Time Provider Department 07/24/24 11:00 AM ARLEEN ARCOS [facility] During your visit today, we recorded the following information about you: Temperature Pulse Respiration Blood pressure 97.3 degrees 84/minute 22/minute 112/58 Weight Last Period 78.9 kg 06/15/24 Arleen Arcos APRN.FURNACE STOCK INSPECTOR 07/24/2024 11:30 AM Signed CC: Patient presents [...] Patient agreeable to treatment plan. Arleen Arcos APRN.FURNACE STOCK INSPECTOR Allergies As of Date: 07/24/2024 Noted Allergy Reaction CEPHALEXIN 05/01/2022 2 - Rash Date Reviewed: 07/24/2024 Reviewed by: Abbey Soria LPN - Fully Assessed Reason for Visit: Cough [28] Cmt: Chest congestion, nasal congestion, fever, sinus pressure, sore throat x 1 week Primary Visit Diagnosis:Rhinosinusitis [J32.9] Order(s):amoxicillin-clav ulanate potassium (AUGMENTIN) 875-125 mg per tabletTake 1 [...] (Discontinued) Reporte (more content not included)... [facility] ED FACILITY CODING SUMMARYon 07-15-2024 ED FACILITY CODING SUMMARY Facility Coding Facility Coding Summary [address] [place] [address] [id number] 07/15/2024 Patient: VAL RUIZ Sex: Female : 2000 Age: 23y Providers: DIAGNOSTIC WORKUP Chief Complaint Principal Diagnosis ICD-10 Codes PROCEDURES Procedures from Providers: Procedures from Nurses/Facility: SUPPLIES ELEVEL This is a partial abstract of information documented in the full record. Drier Operator Head must use independent judgment in selecting codes. CPT copyright 2022 [employer]. All Rights Reserved. 1 of 1 [facility] ED MED ADMINISTRATION DETAIL on 07-15-2024 ED MED ADMINISTRATION DETAIL Air Tube Releaser Medication Administration Record [address] [address] [id number] 07/15/2024 Patient: VAL RUIZ Sex: Female : 2000 Age: 23y MEASUREMENTS: Wt: 77.1 kg, Ht/Efrain: 58.0 in, BMI: 35.53 ALLERGIES: Keflex Medication Ordered Medication Administration Date/Time 1 of 1 [facility] ED NURSES CLINICAL NOTEon ED NURSES CLINICAL NOTE Nurse Narrative Nurse Clinical Narrative [address] [address] [id number] 07/15/2024 Patient: VAL RUIZ Sex: Female : [...] possible sources of infection. -- 12:07 07/15/24 SHERMAN Johnson R.N. 12:06 07/15/24. BP: 117/70 MAP: [...] Johnson R.N. Problems: Asthma -- 12:03 07/15/24 SHERMAN Johnson R.N. gestional diabetes -- 12:03 07/15/24 SHERMAN Johnson R.N. Bipolar Disorder -- 12:03 07/15/24 SHERMAN Johnson R.N. ADDITIONAL SURGERIES: -- 12:03 07/15/24 SHERMAN Johnson R.N. Tonsillectomy -- 12:04 07/15/24 SHERMAN Johnson R.N. History 12:01 07/15/24. PAST MEDICAL [...] Johnson R.N. 07/15/24 17:04:37 EDT) Generated by [facility] 3 of 3 [facility] ED ORDER SHEET (CPOE ONLY)on 07-15-2024 ED ORDER SHEET (CPOE ONLY) Order Sheet Order Sheet [address] [place] [address] [id number] 07/15/2024 Patient: VAL RUIZ Sex: Female : 2000 Age: 23y MEASUREMENTS: Wt: 77.1 kg, Ht/Efrain: 58.0 in, BMI: 35.53 ALLERGIES: Keflex MEDICATION/IV/DRIP/FLUID ORDERS Order Description Priority Entered Acknowledged Completed LAB ORDERS Order Description Priority Entered Acknowledged Collected Completed DIAGNOSTIC STUDY ORDERS Order Description Priority Entered Acknowledged Completed STAFF ORDERS Order Description Priority Entered Acknowledged Collected Completed 1 of 1 [facility] ED SUPER BILLon 07-15-2024 ED SUPER BILL [facility] [address] [place] [address] [id number] 07/15/2024 Patient: VAL RUIZ Sex: Female : 2000 Age: 23y Item Professional Category Description Facility Code Code Quantity Fee Total Grand Total $0.00 1 of 1 [facility] ED VISIT SUMMARYon ED VISIT SUMMARY Visit Overview Visit Overview [place] [address] [place] [address] [id number] 07/15/2024 Patient: VAL RUIZ Sex: Female : [...] STUDIES CLINICAL IMPRESSION 3 of 3 [facility] CNOVon 07-11-2024 CNOV Office Visit (UCWSTR ) ----- SARAVAL ([id number]) 2000 F Date Time Provider Department 07/11/24 11:00 AM [facility] During your visit today, we recorded the following information about you: Temperature Pulse Respiration Blood pressure 97.7 degrees 80/minute 21/minute 110/72 Weight 76.4 kg Shu Gomez, BRICK MOLDER HAND.FURNACE STOCK INSPECTOR 07/11/2024 12:21 PM Signed Subjective Val Albert Sara is a 23 year [...] RELIEF) 50 mcg/actuation nasal spray Use 1 [place] in each nostril once daily. (Patient not [...] Patient advised to notify Dr. Sanders with [facility], the provider that prescribes her medications for depression and anxiety. Patient advised that she will need to wean off some of her medications due to risks during . Patient advised to schedule and appointment with an CORPORATE BANKING OFFICER provider. Patient asks about mild uterine cramping and if this is normal. Patient advised that some uterine cramping may be normal post uterine implantation, advised on signs and symptoms to monitor for and when to seek emergency care. All patient's questions answered. Patient agreeable with plan and verbalizes understanding. Alexia Enriquez, Student HYDROBLASTER TEACHING PROVIDER (Physician/PA/BRICK MOLDER HAND) NOTE OF PERSONAL INVOLVEMENT IN CARE: I have personally seen and examined the patient and performed the medical decision-making components. I have reviewed the Advanced Practice Registered Nurse (BRICK MOLDER HAND) Student's documentation and verified the findings in the note as written. Any additions or changes are noted in bold/italics. Signature: Shu Gomez Date: 07/11/2024 Time: 12:19 PM Alexia Enriquez 07/11/2024 11:39 AM Addendum ASSESSMENT/PLAN: 1. Missed period - ICD9: 626.4, ICD10: N92.6 (primary diagnosis) POSITIVE URINE (more content not included)... [facility] UA DIP,URINE HCG (POC)on Beta HCG ( test) Ql (U) Positive Abnormal Negative [facility] Comment on above: Location:[address], [place], [address] Interpretation and review of laboratory results Abnormal [facility] Charge Weigher (POCT) Internal QC OK [facility] Location:[facility], [address] [place] [address], [place], [address] [facility] POINT OF CARE [facility] CNOVon 06-19-2024 CNOV Office Visit (UCWSTR ) ----- VAL RUIZ ([id number]) 2000 F Date Time Provider Department 06/19/24 11:00 AM HALEY BLACK During your visit today, we recorded the following information about you: Temperature Pulse Respiration Blood pressure 97.7 degrees 99/minute 18/minute 109/77 Weight Last Period 76 kg 06/15/24 Arleen Arcos APRN.[facility] 06/19/2024 11:35 AM Signed CC: Patient presents [...] RELIEF) 50 mcg/actuation nasal spray Use 1 [place] in each nostril once daily. (Patient not [...] Unremarkable. IMPRESSION IMPRESSION: No acute radiographic abnormality. Regulatory Attorney: MEDHAT Transcribe Date/Time: Jun 19 2024 11:31A [...] Patient agreeable to treatment plan. Arleen Arcos APRN.FURNACE STOCK INSPECTOR Allergies As of Date: 06/19/2024 Noted Allergy Reaction CEPHALEXIN 05/01/2022 2 - Rash Date Reviewed: 06/19/2024 Reviewed by: Abbey Soria LPN - Fully Assessed Reason for Visit: Cough [28] Cmt: Chest congestion, chest tightness in chest Fever [47] Cmt: Headache, bodyaches x 2 days Primary Visit Diagnosis:Acute cough [R05.1] Other Visit Diagnosis:URI, acute [J06.9] Order(s):XR CHEST 2V FRONTAL/LAT [[id number]] Order #: [id number] FUTURE COVID AND INFLUENZA A/B AND RSV PCR, ROUTINE [SQCVFLRS] Order #: [id number]. #:[id number] benzonatate (TESSALON PERLES) 100 mg capsuleTake 1 capsule by mouth (more content not included)... [facility] COVID AND INFLUENZA A/B AND RSV PCR, ROUTINEon 06-19-2024 SARS-CoV-2 (COVID-19) RNA PARADISE+probe Ql (Unsp spec) SARS-COV-2 (AGENT OF COVID-19) RNA: Not detected INFLUENZA A RNA: Not detected INFLUENZA B RNA: Not detected RESPIRATORY SYNCYTIAL VIRUS (RSV) RNA: Not detected [facility] Comment on above: Performed By: #### M AT21 #### [facility] CLIA [id number] [place] [address] XR CHEST 2V FRONTAL/LATon XR CHEST 2V [...] tissues: Unremarkable. IMPRESSION: No acute radiographic abnormality. Regulatory Attorney: PSC Transcribe Date/Time: Jun 19 2024 11:31A Dictated by : CINDY WILSON MD This examination was interpreted and the report reviewed and electronically signed by: CINDY WILSON MD on Jun 19 2024 11:31AM EST [id number] [facility] XR Chest PA and Lateralon IMPRESSION: No acute radiographic abnormality. Regulatory Attorney: [facility] Transcribe Date/Time: Jun 19 2024 11:31A [...] soft tissues: Unremarkable. DIVISION OF RADIOLOGY [facility]24 * * *Final Report* * [...] Unremarkable. IMPRESSION IMPRESSION: No acute radiographic abnormality. Regulatory Attorney: PSCB Transcribe Date/Time: Jun 19 2024 11:31A Dictated by : CINDY WILSON MD This examination was interpreted and the report reviewed and electronically signed by: CINDY WILSON MD on Jun 19 2024 11:31AM EST [facility] Radiology Study observation (narrative) [facility] XR Chest PA and LateralOrder ed By: Ccf Provider on 06-19-2024 [facility] CNOVon 05-17-2024 CNOV Office Visit (UCUPNO ) ----- VAL RUIZ ([id number]) 2000 F Date Time Provider Department 05/17/24 1:50 PM ARIELLE ARIAS RAQUEL During your visit today, we recorded the following information about you: Temperature Pulse Respiration Blood pressure 97.8 degrees 80/minute 14/minute 114/76 Weight Last Period 75.8 kg 05/14/24 Arielle Arias APRN.FURNACE STOCK INSPECTOR 05/17/2024 2:17 PM Signed Pt will follow [...] on cough drops or hard candy. ?Take kkyj-ois-malhigj cough and cold medicines. ?Breath in warm, [...] not getting better after 3 weeks Arielle Arias, BRICK MOLDER HAND.FURNACE STOCK INSPECTOR 05/17/2024 2:23 PM Signed May 17, 2024 [...] Immunization History Administered Date(s) Administered COVID-19 vaccine (La Ruche qui dit Oui) 02/22/2021 Current Medications: MUCUS RELIEF ER 600 mg 12 hr tablet TAKE 1 TABLET BY MOUTH TWICE DAILY NEEDED FOR CONGESTION QUEtiapine (SEROQUEL) 2 (more content not included)... [facility] ----- VAL RUIZ Bety ([id number]) 2000 F Date Time Provider Department 03/23/24 1:40 PM RICCARDO LEVINE During your visit today, we recorded the [...] old female who presents today for Sinusitis (Drainage/congestion/Star kavon 1 week ago becoming worse within the [...] Immunization History Administered Date(s) Administered COVID-19 vaccine (La Ruche qui dit Oui) 02/22/2021 Current Medications: albuterol HFA (PROVENTIL HFA, [...] RELIEF) 50 mcg/actuation nasal spray Use 1 [place] in each nostril once daily. busPIRone (BUSPAR) [...] Musculoskeletal: C (more content not included)... [facility] URINE CULTURE [CCL]on 2022 Bacteria identified Cx Nom (U) URCUL See Results Below See Below CULTURE, URINE NORMAL UROGENITAL OLY 10,000 -<50,000 CFU/ml Normal urogenital oly SOURCE: [place] [address] Bonifacio Trujillo III, M.D. [id number] [facility] Comment on above: Performed By: #### 2 [id number] #### [facility],[address] [place] [address] CNOVon 05-01-2022 CNOV Office Visit (UCMNPH ) ----- VAL RUIZ ([id number]) 2000 Date Time Provider Department 05/01/22 10:35 AM ASIF DEL VALLE [facility] During your visit today, we recorded the following information about you: Temperature Pulse Respiration Blood pressure 97 degrees 88/minute 18/minute 117/74 Weight Last Period 70.3 kg 04/25/22 Asif Del Valle APRN.FURNACE STOCK INSPECTOR 05/01/2022 10:54 AM Signed SINUSITIS: You have [...] Denies nausea or vomiting. Has been taking zxya-iok-jlunirv cold/sinus meds with no improvement of symptoms. [...] other questions or concerns. Asif Del Valle APRN.FURNACE STOCK INSPECTOR This note was generated with voice recognition [...] Primary Visit Diagnosis:Acute non-recurrent frontal sinusitis [J01.10] Order(s):amoxicillin-clav ulanic acid (AUGMENTIN) 875-125 mg per tabletTake 1 tablet by mouth twice daily for 10 days.Disp: 20 tabletRfl (more content not included)... [facility] 10-18-2021 [facility] [place] OF SERVICE: 10/18/2021 SUBJECTIVE: Patient is [...] Lung sounds clear to auscultation bilaterally. No [facility] PATIENT NAME: SARAVAL GarciaEdwardo [address] August MEDICAL REC #: [id number] [place] [address] [facility] PHYSICIAN respiratory distress. HEENT: [...] questions or concerns. Asif Del Valle CNP /[id number] [facility] PATIENT NAME: SARAVAL Albert Lis [address] August MEDICAL REC #: [id number] [place] [address] [facility] PHYSICIAN [facility] File#: [id number] END OF DOCUMENT / CHANGE LOG FOLLOWS Last Edited By Elec. Signed By Asif Del Valle FURNACE STOCK INSPECTOR #MOYCO Asif Del Valel CNP #MOYCO on 10/18/2021 11:08 ET on 10/18/2021 11:08 ET Revision Number - 2 Verified/Reviewed by 10/18/21 1108 CHANTAL [facility] PATIENT NAME: VAL RUIZ [address] MEDICAL REC #: [id number] [place] [address] [facility] PHYSICIAN [facility] STATCARE REPORT [facility] 07-28-2021 [facility] DATE OF SERVICE: 07/28/2021 HISTORY OF PRESENT [...] FAMILY HISTORY: No chronic medical conditions listed. [facility] PATIENT NAME: VAL RUIZ [address] August MEDICAL REC #: [id number] [place] [address] [facility] STAT[facility] PHYSICIAN MEDICATIONS: Include: 1. [...] do a chest x-ray. Patient deferred at [facility] PATIENT NAME: VAL RUIZ Dr. August MEDICAL REC #: [id number] [place] [address] [facility] REPORT STATCARE PHYSICIAN this time. DIAGNOSIS: Acute sinusitis, upper respiratory infection. PLAN: Recommended symptomatic over the counter treatment. I did send over doxycycline 100 mg twice a day for 7 days to treat symptoms. Follow up with primary care. Patient agreeable, stable. All questions answered. JENI Garcia/[id number] [facility] File#: [id number] END OF DOCUMENT / CHANGE LOG FOLLOWS Last Edited By Elec. Signed By Zoie Potter PAC #[email or web address] Zoie Potter PAC #[email or web address] on 08/04/2021 14:37 ET on 08/04/2021 14:37 ET Revision Number - 2 Verified/Reviewed by 08/04/21 1437 ERIBERTO [facility] PATIENT NAME: VAL RUIZ [address] August MEDICAL REC #: [id number] [place] [address] [facility] PHYSICIAN Normal [facility] DONA STATCARE REPORT Normal [facility] THROAT STREPon 07-21-2021 THROAT STREP BETA STREP RESULT NO BETA STREPTOCOCCUS ISOLATED Normal [facility] Comment on above: Order Comment: Campu s: TSC Performed By: #### M [id number], [id number] #### [facility] [place] [address], [place] [address] # [phone] RAPID STREP Aon 07-19-2021 S. pyogenes Ag IA Ql (Unsp spec) GROUP A STREP PRESUMPTIVE NEGATIVE FOR GROUP A BETA STREPTOCOCCUS Normal [facility] Comment on above: Order Comment: Luís s: TSC Performed By: #### M 150.19594, M1.54439 #### [facility] [address], [place] [address] PH# [phone] TSCon 07-19-2021 TSC DATE OF SERVICE: 07/19/2021 HISTORY OF PRESENT ILLNESS: A 20-year-old female with a chief complaint of sore throat, fever, headache, nausea. Symptoms have been present for the past 2 days. She says that she has not been coughing. She has been taking ibuprofen. She had been vaccinated from [employer] last February. She has had her tonsils removed. PAST MEDICAL HISTORY: History of anemia, asthma, frequent headaches, depression. PAST SURGICAL HISTORY: She has had abdominal surgery and tonsillectomy. MEDICATIONS: She is on: 1. Seroquel. 2. Lamotrigine. 3. Dayquil. ALLERGIES: To KEFLEX. SOCIAL HISTORY: Nonsmoker. Drinks alcohol occasionally. FAMILY HISTORY: No family history. PHYSICAL EXAMINATION: Vital Signs: Blood pressure is 123/77, pulse 118, respiratory [facility] PATIENT NAME: VAL RUIZ [address] [facility] [address] [address] August MEDICAL REC #: [id number] [place] [address] [facility] STAT[facility]ARE PHYSICIAN rate 16, temperature 100.5, pulse oximetry [...] on the culture results. Zuleyma Huitron MD /[id number] [facility] File#: [id number] [facility] PATIENT NAME: VAL RUIZ [address] August MEDICAL REC #: [id number] [place] [address] [facility] RE[facility] STATCARE PHYSICIAN END OF DOCUMENT / CHANGE LOG FOLLOWS Last Edited By Zuleyma Huitron MD on 07/25/2021 12:18 ET Revision Number - 2 Last Edited By Elec. Signed By Zuleyma Huitron MD #Zuleyma Garcia MD on 07/25/2021 12:18 ET on 07/25/2021 12:18 ET Revision Number - 3 Verified/Reviewed by 07/25/21 1218 [facility] PATIENT NAME: VAL RUIZ N [address] August MEDICAL REC #: [id number] [place] [address] [facility] PHYSICIAN Normal [facility] STATCARE REPORT Normal [facility] THROAT STREPon 04-28-2021 THROAT STREP BETA STREP RESULT NO BETA STREPTOCOCCUS ISOLATED Normal [facility] Comment on above: Order Comment: Luís s: TSC Performed By: #### M 150.28930, M100.65254 ####[facility] - [id number] [place], [place] [address]BE# [phone] [id number] 04-27-2021 SARS-CoV-2 (COVID-19) RNA PARADISE+probe Ql (Unsp spec) Negative Normal Negative [facility] Comment on above: Order Comment: Altafu s: TSC Result Comment: Nega tive results do [...] performed by PCR. Performed By: #### L 770.13084 #### [facility] [address] [phone] RAPID STREP Aon 04-26-2021 S. pyogenes Ag IA Ql (Unsp spec) GROUP A STREP PRESUMPTIVE NEGATIVE FOR GROUP A BETA STREPTOCOCCUS Normal [facility] Comment on above: Order Comment: Luís s: TSC Performed By: #### M 150.19687, M100.04669 #### [facility] [place] [address], [place] [address] # [phone] [facility] 04-26-2021 [facility] [place] OF SERVICE: 04/26/2021 HISTORY OF PRESENT ILLNESS: Patient is a 20-year-old female here for fever, sore throat, cough, congestion, dizziness, headache, nausea. Fever up to 102 yesterday. She has had symptoms since around Saturday or Saturday. ALLERGIES: KEFLEX. PHYSICAL EXAMINATION: Vital Signs: Blood pressure 118/80, pulse 84, respirations 12, temperature 100.1, pulse oximetry 97%. Pain 8 out of 10. She works at [employer]. No exposure to COVID that she knows [...] which is still pending. DIAGNOSIS: 1. Fever. [facility] PATIENT NAME: VAL RUIZ N [address] August MEDICAL REC #: [id number] [place] [address] [facility] STATCARE PHYSICIAN 2. Sinusitis. PLAN: She Is placed on a Z-Hermelindo pending COVID swab. Follow up as needed. They acknowledged and understood. Misty López PA-C [id number] [facility] File#: [id number] END OF DOCUMENT / CHANGE LOG FOLLOWS Last Edited By Elec. Signed By Misty López PAC #PRICH Misty López PAC #PRICH on 04/28/2021 13:23 ET on 04/28/2021 13:23 ET Revision Number - 2 Verified/Reviewed by 04/28/21 1329 LENCHO [facility] PATIENT NAME: VAL RUIZ N [address] August MEDICAL REC #: [id number] [place] [address] [facility] [id number] 03-28-2021 SARS-CoV-2 (COVID-19) RNA PARADISE+probe Ql (Unsp spec) Negative Normal Negative [facility] Comment on above: Order Comment: Luís s: TSC Result Comment: Nega tive results do [...] performed by PCR. Performed By: #### L 770.52391 ####[facility] [id number] [place], [place] [address]Mq# [phone] [facility] DATE OF SERVICE: 03/27/2021 SUBJECTIVE: Patient is a 20-year-old female presenting to [facility]care today for fever, body aches, cough, congestion, [...] MEDICATIONS: 1. Lamictal. 2. Seroquel. 3. Zoloft. [facility] PATIENT NAME: VAL RUIZ N [address] August MEDICAL REC #: [id number] [place] [id number] [facility] PHYSICAL EXAMINATION: Vital signs reviewed and [...] questions or concerns. Asif Del Valle CNP /[id number] [facility] PATIENT NAME: VAL RUIZ [address] MEDICAL REC #: [id number] [place] [address] [facility] RE[facility] STAT[facility]ARE PHYSICIAN [facility] File#: [id number] END OF DOCUMENT / CHANGE LOG FOLLOWS Last Edited By Elec. Signed By Asif Del Valle FURNACE STOCK INSPECTOR #MOYCO Asif Del Valle FURNACE STOCK INSPECTOR #MOYCO on 03/27/2021 16:39 ET on 03/27/2021 16:39 ET Revision Number - 2 Verified/Reviewed by 03/27/21 Tiffanie CORNEJO [facility] PATIENT NAME: VAL RUIZ [address] MEDICAL REC #: [id number] [place] [address] [facility] PHYSICIAN Normal [facility] STATCARE REPORT Normal [facility] URINE CULTUREon 03-23-2021 Bacteria identified Cx Nom (U) NO GROWTH AFTER 48 HOURS Normal [facility] [place] Comment on above: Order Comment: Luís s: TSC Performed By: #### M 100.93174 ####[facility] - [id number] [place], [place] [address]KQ# [phone] DIPSTICKon 03-21-2021 POC APPEARANCE HAZY Normal CLEAR [facility] [place] Comment on above: Order Comment: Luís s: TSC Performed By: #### L 600.15811 #### [facility] [place] [address] [place], [place] [address] PH# [phone] POC BILIRUBIN Negative Normal NEGATIVE [facility] [place] Comment on above: Order Comment: Luís s: TSC Performed By: #### L 600.86663 #### [facility] [place] [address] [place], [place] [address] PH# [phone] POC BLOOD Negative Normal NEGATIVE [facility] [place] Comment on above: Order Comment: Luís s: TSC Performed By: #### L 600.46485 #### [facility] [place] [address] [facility] [address] [place], [place] [address] PH# [phone] POC COLOR DK YELL Normal [facility] [place] Comment on above: Order Comment: Luís s: TSC Performed By: #### L 600.59120 #### [facility] [place] [address] [place], [place] [address] PH# [phone] POC KETONE Negative Normal NEGATIVE [facility] [place] Comment on above: Order Comment: Luís s: TSC Performed By: #### L 600.85103 #### [facility] [place] [address] [place], [place] [address] PH# [phone] POC LEUK EST Negative Normal NEGATIVE [facility] [place] Comment on above: Order Comment: Luís s: TSC Performed By: #### L 600.79802 #### [facility] [place] [address] [address] [place], [place] [address] PH# [phone] POC NITRITE Negative Normal NEGATIVE [facility] Comment on above: Order Comment: Altafu s: TSC Performed By: #### L 600.74743 #### [facility] - [address] [address] PH# [phone] POC PROTEIN Negative Normal NEGATIVE [facility] Comment on above: Order Comment: Altafu s: TSC Performed By: #### L 600.79091 #### [facility] - [address] [address] PH# [phone] POC SPEC GRAV 1.025 Normal 1.005-1.030 [facility] Comment on above: Order Comment: Altafu s: TSC Performed By: #### L 600.46853 #### [facility] - [address] [address] PH# [phone] POC UA GLUCOSE NORMAL Normal NORMAL [facility] Comment on above: Order Comment: Altafu s: TSC Performed By: #### L 600.02336 #### [facility] - [address] [address] PH# [phone] POC UA PH 6.0 Normal 5-6 [facility] Comment on above: Order Comment: Altafu s: TSC Performed By: #### L 600.33907 #### [facility] - [address] [address] PH# [phone] POC UROBIL NORMAL Normal NORMAL [facility] Comment on above: Order Comment: Altafu s: TSC Performed By: #### L 600.79831 #### [facility] - [address] [address] PH# [phone] TSCon 03-21-2021 TSC DATE OF SERVICE: 03/21/2021 HISTORY OF PRESENT [...] murmurs. Respiratory: Lung sounds clear to auscultation [facility] PATIENT NAME: VAL RUIZ N [address] [place] MEDICAL REC #: [id number] [place] [address] DONA STATCARE REPORT STATCARE PHYSICIAN bilaterally, no respiratory distress. [...] other questions or concerns. Asif Del Valle [facility]/[id number] [facility] PATIENT NAME: VAL RUIZ [address] MEDICAL REC #: [id number] [place] [address] [facility]IA STATCARE REPORT STATCARE PHYSICIAN SSI File#: [id number] END OF DOCUMENT / CHANGE LOG FOLLOWS Last Edited By Elec. Signed By Asif Del Valle FURNACE STOCK INSPECTOR #[email or web address] Asif Del Valle CNP #[email or web address] on 03/26/2021 09:06 ET on 03/26/2021 09:06 ET Revision Number - 2 Verified/Reviewed by 03/26/21 0906 CHANTAL [facility] PATIENT NAME: VAL RUIZ [address] MEDICAL REC #: [id number] [place] [address] [facility] REPORT STATCARE PHYSICIAN Normal [facility] TRINY STATCARE REPORT [facility] [place] 01-08-20[place] [facility]: 01/[place]21 HISTORY OF PRESENT ILLNESS: The patient is [...] uptake of dye in the cornea. IMPRESSION: [facility], left. Put on erythromycin eye ointment and discharged. JENI Pan/[id number] [facility] File#: [id number] [facility] PATIENT NAME: VAL RUIZ [address] MEDICAL REC #: [id number] [place] [address] [facility] STATCARE REPORT STATCARE PHYSICIAN END OF DOCUMENT / CHANGE LOG FOLLOWS Last Edited By Elec. Signed By Cain Elizabeth #[email or web address] Cain Elizabeth #[email or web address] on 01/25/2021 14:08 ET on 01/25/2021 14:08 ET Revision Number - 2 Verified/Reviewed by 01/25/21 1408 KEMAR [facility] PATIENT NAME: VAL RUIZ [address] MEDICAL REC #: [id number] [place] [address] [facility] STAT[facility] REPORT STATCARE PHYSICIAN [facility]: 12/30/2020 CHIEF COMPLAINT: Abdominal [...] Admits to alcohol use, denies tobacco use. [facility] PATIENT NAME: VAL RUIZ [address] [place] MEDICAL REC #: [id number] [place] [address] [facility] STAT[facility]ARE REPORT STATCARE PHYSICIAN REVIEW OF SYSTEMS: General: Denies fevers, [...] present. Negative CVA tenderness bilaterally. DIAGNOSIS: Gastroenteritis. [facility] PATIENT NAME: VAL RUIZ N [address] [place] MEDICAL REC #: [id number] [place] [address] [facility] PLAN: The patient is to get lot of fluids in, especially ones with electrolytes and she is to use the BRAT diet. Follow up at her primary care doctor if she is not improving. If any worsening symptoms, then she is to go to the ER. Patient agrees and understands the plan at this time. The patient stable upon discharge from [facility] [place]. JENI Szymanski/[id number] [facility] File#: [id number] END OF DOCUMENT / CHANGE LOG FOLLOWS Last Edited By Audie. Signed By Destini Rogel PAC #[email or web address] Destini Rogel PAC #[email or web address] on 12/30/2020 10:53 ET on 12/30/2020 10:53 ET Revision Number - 2 Verified/Reviewed by [facility] PATIENT NAME: VAL RUIZ [address] [place] MEDICAL REC #: [id number] [place] [address] [facility] STATCARE REPORT STATCARE PHYSICIAN 12/30/20 1053 [email or web address] [facility] PATIENT NAME: VAL RUIZ [address] [place] MEDICAL REC #: [id number] [place] [address] [facility] STATCARE REPORT STATCARE PHYSICIAN Normal [facility] STATCARE REPORT Normal [facility] GC/Chlamydia Amp, Uron 02-24 Chlamydia Amplif, Ur Normal [facility] Comment on above: Result Comment: Nega tive for For screening asymptomatic women, a vaginal swab specimen (APTIMA vaginal swab 783839) is optimal. Urine specimens have reduced sensitivity for Chlamydia trachomatis or Neisseria gonorrhoeae infection in female patients without symptoms. This test was developed and its performance characteristics determined by [facility] [place] ([facility]). It has not been cleared or approved by the FDA. [facility] is regulated under CLIA as qualified to perform high complexity testing. This test is used for clinical purposes. It should not be regarded as investigational or for research. Chlamydia For screening asymptomatic women, a vaginal swab specimen (APTIMA vaginal swab 996853) is optimal. Urine specimens have reduced sensitivity for Chlamydia trachomatis or Neisseria gonorrhoeae infection in female patients without symptoms. This test was developed and its performance characteristics determined by [facility] [place] ([facility]). It has not been cleared or approved by the FDA. [facility] is regulated under CLIA as qualified to perform high complexity testing. This test is used for clinical purposes. It should not be regarded as investigational or for research. trachomatis by For screening asymptomatic women, a vaginal swab specimen (APTIMA vaginal swab 122343) is optimal. Urine specimens have reduced sensitivity for Chlamydia trachomatis or Neisseria gonorrhoeae infection in female patients without symptoms. This test was developed and its performance characteristics determined by [facility] [place] ([facility]). It has not been cleared or approved by the FDA. [facility] is regulated under CLIA as qualified to perform high complexity testing. This test is used for clinical purposes. It should not be regarded as investigational or for research. amplification. For screening asymptomatic women, a vaginal swab specimen (APTIMA vaginal swab 646760) is optimal. Urine specimens have reduced sensitivity for Chlamydia trachomatis or Neisseria gonorrhoeae infection in female patients without symptoms. This test was developed and its performance characteristics determined by [facility] [place] ([facility]). It has not been cleared or approved by the FDA. [facility] is regulated under CLIA as qualified to perform high complexity testing. This test is used for clinical purposes. It should not be regarded as investigational or for research. Performed By: #### U GCCT #### [facility] [address], [place] [address] GC Amplification, Ur NGNEG Normal [facility] Comment on above: Performed By: #### U GCCT #### [facility] [address], [place] [id number] Vital Signs Date Time Vital Sign Value Performing Clinician Facility 03-02-2025 09:20-0400 Body mass index (BMI) [Ratio] 39.59 kg/m2 Alfred Arcos MD Work Phone: [facility] 03-02-2025 09:20-0400 Body weight 88.91 kg Alfred Arcos MD Work Phone: [facility] 03-02-2025 09:20-0400 Diastolic blood pressure 78 mm[Hg] Alfred Arcos MD Work Phone: [facility] 03-02-2025 09:20-0400 Systolic blood pressure 115 mm[Hg] Alfred Arcos MD Work Phone: [facility] 03-01-2025 19:36-0400 Body temperature 97.8 [degF] No Primary Care Physician [facility] 03-01-2025 19:36-0400 Respiratory rate 16 /min No Primary Care Physician [facility] 03-01-2025 19:35-0400 Diastolic blood pressure 69 mm[Hg] No Primary Care Physician [facility] 03-01-2025 19:35-0400 Heart rate 75 /min No Primary Care Physician [facility] 03-01-2025 19:35-0400 Systolic blood pressure 114 mm[Hg] No Primary Care Physician [facility] 03-01-2025 17:36-0400 SaO2% (BldA) [Mass fraction] 97 % No Primary Care Physician [facility] 03-01-2025 11:30-0400 Body height 147.32 cm No Primary Care Physician [facility] 03-01-2025 11:30-0400 Body mass index (BMI) [Ratio] 40.9 kg/m2 No Primary Care Physician [facility] 03-01-2025 11:30-0400 Body weight 88.81 kg No Primary Care Physician [facility] 03-01-2025 11:22-0400 Body temperature 98.8 [degF] No Primary Care Physician [facility] 03-01-2025 11:22-0400 Diastolic blood pressure 55 mm[Hg] No Primary Care Physician [facility] 03-01-2025 11:22-0400 Heart rate 88 /min No Primary Care Physician [facility] 03-01-2025 11:22-0400 Respiratory rate 16 /min No Primary Care Physician [facility] 03-01-2025 11:22-0400 Systolic blood pressure 114 mm[Hg] No Primary Care Physician [facility] 03-01-2025 11:21-0400 SaO2% (BldA) [Mass fraction] 97 % No Primary Care Physician [facility] 02-26-2025 09:16-0400 Body mass index (BMI) [Ratio] 39.79 kg/m2 Woody Bass MD Work Phone: [facility] 02-26-2025 09:16-0400 Body weight 89.36 kg Woody Bass MD Work Phone: [facility] 02-26-2025 09:16-0400 Diastolic blood pressure 71 mm[Hg] Woody Bass MD Work Phone: [facility] 02-26-2025 09:16-0400 Systolic blood pressure 121 mm[Hg] Woody Bass MD Work Phone: [facility] 02-24-2025 17:04-0400 Body temperature 98.5 [degF] No Primary Care Physician [facility] 02-24-2025 17:04-0400 Heart rate 79 /min No Primary Care Physician [facility] 02-24-2025 17:04-0400 Respiratory rate 16 /min No Primary Care Physician [facility] 02-24-2025 17:04-0400 SaO2% (BldA) [Mass fraction] 94 % No Primary Care Physician [facility] 02-24-2025 17:03-0400 Diastolic blood pressure 57 mm[Hg] No Primary Care Physician [facility] 02-24-2025 17:03-0400 Systolic blood pressure 107 mm[Hg] No Primary Care Physician [facility] 02-24-2025 16:57-0400 Body height 146.99 cm No Primary Care Physician [facility] 02-24-2025 16:57-0400 Body mass index (BMI) [Ratio] 40.9 kg/m2 No Primary Care Physician [facility] 02-24-2025 16:57-0400 Body weight 88.5 kg No Primary Care Physician [facility] 02-19-2025 11:45-0400 Body mass index (BMI) [Ratio] 38.38 kg/m2 Mayra Vincent MD Work Phone: [facility] 02-19-2025 11:45-0400 Body weight 86.18 kg Mayra Vincent MD Work Phone: [facility] 02-19-2025 11:45-0400 Diastolic blood pressure 64 mm[Hg] Mayra Vincent MD Work Phone: [facility] 02-19-2025 11:45-0400 Heart rate 72 /min Mayra Vincent MD Work Phone: [facility] 02-19-2025 11:45-0400 SaO2% (BldA) [Mass fraction] 98 % Mayra Vincent MD Work Phone: [facility] 02-19-2025 11:45-0400 Systolic blood pressure 106 mm[Hg] Mayra Vincent MD Work Phone: [facility] 02-08-2025 11:24-0400 Diastolic blood pressure 72 mm[Hg] [facility] [place] [facility] 02-08-2025 11:24-0400 Systolic blood pressure 124 mm[Hg] [facility] [place] [facility] 02-04-2025 14:00-0400 Body mass index (BMI) [Ratio] 38.17 kg/m2 Gee Carlin MD Work Phone: [facility] 02-04-2025 14:00-0400 Body weight 85.73 kg Gee Carlin MD Work Phone: [facility] 02-04-2025 14:00-0400 Diastolic blood pressure 64 mm[Hg] Gee Carlin MD Work Phone: [facility] 02-04-2025 14:00-0400 Systolic blood pressure 108 mm[Hg] Gee Carlin MD Work Phone: [facility] 02-01-2025 11:37-0400 Diastolic blood pressure 62 mm[Hg] [facility] [place] [facility] 02-01-2025 11:37-0400 Systolic blood pressure 108 mm[Hg] [facility] [place] [facility] 01-28-2025 14:27-0400 Body mass index (BMI) [Ratio] 37.57 kg/m2 Alfred Arcos MD Work Phone: [facility] 01-28-2025 14:27-0400 Body weight 84.37 kg Alfred Arcos MD Work Phone: [facility] 01-28-2025 14:27-0400 Diastolic blood pressure 63 mm[Hg] Alfred Arcos MD Work Phone: [facility] 01-28-2025 14:27-0400 Systolic blood pressure 106 mm[Hg] Alfred Arcos MD Work Phone: [facility] 01-26-2025 09:28-0400 Diastolic blood pressure 66 mm[Hg] [facility] [place] [facility] 01-26-2025 09:28-0400 Systolic blood pressure 116 mm[Hg] [facility] [place] [facility] 01-25-2025 13:00-0400 Body temperature 97.11 [degF] Treatment Wstr Work Phone: [facility] 01-25-2025 13:00-0400 Diastolic blood pressure 66 mm[Hg] Treatment Wstr Work Phone: [facility] 01-25-2025 13:00-0400 Heart rate 60 /min Treatment Wstr Work Phone: [facility] 01-25-2025 13:00-0400 Systolic blood pressure 103 mm[Hg] Treatment Wstr Work Phone: [facility] 01-22-2025 14:35-0400 Body mass index (BMI) [Ratio] 37.57 kg/m2 Alfred Arcos MD Work Phone: [facility] 01-22-2025 14:35-0400 Body weight 84.37 kg Alfred Arcos MD Work Phone: [facility] 01-22-2025 14:35-0400 Diastolic blood pressure 71 mm[Hg] Alfred Arcos MD Work Phone: [facility] 01-22-2025 14:35-0400 Systolic blood pressure 106 mm[Hg] Alfred Arcos MD Work Phone: [facility] 01-20-2025 13:22-0400 Body mass index (BMI) [Ratio] 38.16 kg/m2 Treatment Wstr Work Phone: [facility] 01-20-2025 13:22-0400 Body temperature 98.01 [degF] Treatment Wstr Work Phone: [facility] 01-20-2025 13:22-0400 Body weight 85.7 kg Treatment Wstr Work Phone: [facility] 01-20-2025 13:22-0400 Diastolic blood pressure 73 mm[Hg] Treatment Wstr Work Phone: [facility] 01-20-2025 13:22-0400 Heart rate 78 /min Treatment Wstr Work Phone: [facility] 01-20-2025 13:22-0400 SaO2% (BldA) [Mass fraction] 96 % Treatment Wstr Work Phone: [facility] 01-20-2025 13:22-0400 Systolic blood pressure 105 mm[Hg] Treatment Wstr Work Phone: [facility] 01-18-2025 13:59-0400 Body temperature 97.5 [degF] Treatment Wstr Work Phone: [facility] 01-18-2025 13:59-0400 Diastolic blood pressure 62 mm[Hg] Treatment Wstr Work Phone: [facility] 01-18-2025 13:59-0400 Heart rate 90 /min Treatment Wstr Work Phone: [facility] 01-18-2025 13:59-0400 SaO2% (BldA) [Mass fraction] 99 % Treatment Wstr Work Phone: [facility] 01-18-2025 13:59-0400 Systolic blood pressure 99 mm[Hg] Treatment Wstr Work Phone: [facility] 01-12-2025 14:00-0400 Body temperature 98.2 [degF] Treatment Wstr Work Phone: [facility] 01-12-2025 14:00-0400 Diastolic blood pressure 73 mm[Hg] Treatment Wstr Work Phone: [facility] 01-12-2025 14:00-0400 Heart rate 101 /min Treatment Wstr Work Phone: [facility] 01-12-2025 14:00-0400 Systolic blood pressure 107 mm[Hg] Treatment Wstr Work Phone: [facility] 01-07-2025 14:11-0400 Body mass index (BMI) [Ratio] 37.2 kg/m2 Alfred Arcos MD Work Phone: [facility] 01-07-2025 14:11-0400 Body weight 83.55 kg Alfred Arcos MD Work Phone: [facility] 01-07-2025 14:11-0400 Diastolic blood pressure 78 mm[Hg] Alfred Arcos MD Work Phone: [facility] 01-07-2025 14:11-0400 Systolic blood pressure 120 mm[Hg] Alfred Arcos MD Work Phone: [facility] 12-25-2024 10:40-0400 Body mass index (BMI) [Ratio] 36.36 kg/m2 Alfred Arcos MD Work Phone: [facility] 12-25-2024 10:40-0400 Body weight 81.65 kg Alfred Arcos MD Work Phone: [facility] 12-25-2024 10:40-0400 Diastolic blood pressure 70 mm[Hg] Alfred Arcos MD Work Phone: [facility] 12-25-2024 10:40-0400 Systolic blood pressure 114 mm[Hg] Alfred Arcos MD Work Phone: [facility] 12-03-2024 13:37-0400 Body mass index (BMI) [Ratio] 35.95 kg/m2 Alfred Arcos MD Work Phone: [facility] 12-03-2024 13:37-0400 Body weight 80.74 kg Alfred Arcos MD Work Phone: [facility] 12-03-2024 13:37-0400 Diastolic blood pressure 64 mm[Hg] Alfred Arcos MD Work Phone: [facility] 12-03-2024 13:37-0400 Systolic blood pressure 112 mm[Hg] Alfred Arcos MD Work Phone: [facility] 11-06-2024 11:34-0500 Body mass index (BMI) [Ratio] 35.75 kg/m2 Alfred Arcos MD Work Phone: [facility] 11-06-2024 11:34-0500 Body weight 80.29 kg Alfred Arcos MD Work Phone: [facility] 11-06-2024 11:34-0500 Diastolic blood pressure 58 mm[Hg] Alfred Arcos MD Work Phone: [facility] 11-06-2024 11:34-0500 Systolic blood pressure 108 mm[Hg] Alfred Arcos MD Work Phone: [facility] 10-20-2024 09:16-0500 Body mass index (BMI) [Ratio] 35.71 kg/m2 Arleth Clutter PA-C Work Phone: [facility] 10-20-2024 09:16-0500 Body temperature 97.5 [degF] Arleth Clutter PA-C Work Phone: [facility] 10-20-2024 09:16-0500 Body weight 80.2 kg Arleth Clutter PA-C Work Phone: [facility] 10-20-2024 09:16-0500 Diastolic blood pressure 70 mm[Hg] Arleth Clutter PA-C Work Phone: [facility] 10-20-2024 09:16-0500 Heart rate 82 /min Arleth Clutter PA-C Work Phone: [facility] 10-20-2024 09:16-0500 Respiratory rate 16 /min Arleth Saenzutter PA-C Work Phone: [facility] 10-20-2024 09:16-0500 SaO2% (BldA) [Mass fraction] 98 % Arleth Clutter PA-C Work Phone: [facility] 10-20-2024 09:16-0500 Systolic blood pressure 122 mm[Hg] Arleth Gillespie PA-C Work Phone: [facility] 10-09-2024 13:45-0500 Body mass index (BMI) [Ratio] 35.14 kg/m2 Melissa Aguilera MD Work Phone: [facility] 10-09-2024 13:45-0500 Body weight 78.93 kg Melissa Aguilera MD Work Phone: [facility] 10-09-2024 13:45-0500 Diastolic blood pressure 64 mm[Hg] Melissa Aguilera MD Work Phone: [facility] 10-09-2024 13:45-0500 Systolic blood pressure 118 mm[Hg] Melissa Aguilera MD Work Phone: [facility] 09-11-2024 11:43-0500 Body mass index (BMI) [Ratio] 35.71 kg/m2 Melissa Aguilera MD Work Phone: [facility] 09-11-2024 11:43-0500 Body weight 80.2 kg Melissa Aguilera MD Work Phone: [facility] 09-11-2024 11:43-0500 Diastolic blood pressure 76 mm[Hg] Melissa Aguilera MD Work Phone: [facility] 09-11-2024 11:43-0500 Systolic blood pressure 122 mm[Hg] Melissa Aguilera MD Work Phone: [facility] 08-15-2024 14:13-0500 Body mass index (BMI) [Ratio] 34.06 kg/m2 June Coronel APRN.CNP Work Phone: [facility] 08-15-2024 14:13-0500 Body temperature 97.3 [degF] June Moomaw BRICK MOLDER HAND.FURNACE STOCK INSPECTOR Work Phone: [facility] 08-15-2024 14:13-0500 Body weight 76.5 kg June Moomaw BRICK MOLDER HAND.FURNACE STOCK INSPECTOR Work Phone: [facility] 08-15-2024 14:13-0500 Diastolic blood pressure 78 mm[Hg] June Moomaw BRICK MOLDER HAND.FURNACE STOCK INSPECTOR Work Phone: [facility] 08-15-2024 14:13-0500 Heart rate 80 /min June Moomaw BRICK MOLDER HAND.FURNACE STOCK INSPECTOR Work Phone: [facility] 08-15-2024 14:13-0500 Respiratory rate 18 /min June Moomaw BRICK MOLDER HAND.FURNACE STOCK INSPECTOR Work Phone: [facility] 08-15-2024 14:13-0500 SaO2% (BldA) [Mass fraction] 98 % June Moomaw BRICK MOLDER HAND.FURNACE STOCK INSPECTOR Work Phone: [facility] 08-15-2024 14:13-0500 Systolic blood pressure 122 mm[Hg] June Moomaw BRICK MOLDER HAND.FURNACE STOCK INSPECTOR Work Phone: [facility] 08-10-2024 12:26-0500 Body mass index (BMI) [Ratio] 34.91 kg/m2 Yong Mederos BRICK MOLDER HAND.FURNACE STOCK INSPECTOR Work Phone: [facility] 08-10-2024 12:26-0500 Body temperature 98.1 [degF] Yong Mederos BRICK MOLDER HAND.FURNACE STOCK INSPECTOR Work Phone: [facility] 08-10-2024 12:26-0500 Body weight 78.4 kg Yong Mederos BRICK MOLDER HAND.FURNACE STOCK INSPECTOR Work Phone: [facility] 08-10-2024 12:26-0500 Diastolic blood pressure 70 mm[Hg] Yong Mederos BRICK MOLDER HAND.FURNACE STOCK INSPECTOR Work Phone: [facility] 08-10-2024 12:26-0500 Heart rate 90 /min Yong Mederos BRICK MOLDER HAND.FURNACE STOCK INSPECTOR Work Phone: [facility] 08-10-2024 12:26-0500 Respiratory rate 21 /min Yong Mederos APRN.FURNACE STOCK INSPECTOR Work Phone: [facility] 08-10-2024 12:26-0500 SaO2% (BldA) [Mass fraction] 96 % Yong Mederos APRN.FURNACE STOCK INSPECTOR Work Phone: [facility] 08-10-2024 12:26-0500 Systolic blood pressure 118 mm[Hg] Yong Mederos APRN.FURNACE STOCK INSPECTOR Work Phone: [facility] 08-03-2024 12:55-0500 Body height 149.9 cm Kati Shannantin GARCIA.CNM Work Phone: [facility] 08-03-2024 12:55-0500 Body mass index (BMI) [Ratio] 34.74 kg/m2 Kati Rolle APRN.CNM Work Phone: [facility] 08-03-2024 12:55-0500 Body weight 78.02 kg Kati Rolle APRN.CNM Work Phone: [facility] 07-24-2024 11:05-0400 Body temperature 97.3 [degF] Arleen Arcos APRN.FURNACE STOCK INSPECTOR Work Phone: [facility] 07-24-2024 11:05-0400 Body weight 78.9 kg Arleen Arcos APRN.FURNACE STOCK INSPECTOR Work Phone: [facility] 07-24-2024 11:05-0400 Diastolic blood pressure 58 mm[Hg] Arleen Arcos APRN.FURNACE STOCK INSPECTOR Work Phone: [facility] 07-24-2024 11:05-0400 Heart rate 84 /min Arleen Arcos APRN.FURNACE STOCK INSPECTOR Work Phone: [facility] 07-24-2024 11:05-0400 Respiratory rate 22 /min Arleen Arcos APRN.FURNACE STOCK INSPECTOR Work Phone: [facility] 07-24-2024 11:05-0400 SaO2% (BldA) [Mass fraction] 100 % Arleen Josselyn BRICK MOLDER HAND.FURNACE STOCK INSPECTOR Work Phone: [facility] 07-24-2024 11:05-0400 Systolic blood pressure 112 mm[Hg] Arleen Josselyn BRICK MOLDER HAND.FURNACE STOCK INSPECTOR Work Phone: [facility] 07-11-2024 11:04-0400 Body temperature 97.7 [degF] Shu Praisler-Wood BRICK MOLDER HAND.FURNACE STOCK INSPECTOR Work Phone: [facility] 07-11-2024 11:04-0400 Body weight 76.4 kg Shu Praisler-Wood BRICK MOLDER HAND.FURNACE STOCK INSPECTOR Work Phone: [facility] 07-11-2024 11:04-0400 Diastolic blood pressure 72 mm[Hg] Shu Praisler-Wood BRICK MOLDER HAND.FURNACE STOCK INSPECTOR Work Phone: [facility] 07-11-2024 11:04-0400 Heart rate 80 /min Shu Praisler-Wood BRICK MOLDER HAND.FURNACE STOCK INSPECTOR Work Phone: [facility] 07-11-2024 11:04-0400 Respiratory rate 21 /min Shu Praisler-Wood BRICK MOLDER HAND.FURNACE STOCK INSPECTOR Work Phone: [facility] [facility] 07-[facility]-2024 11:04-0400 SaO2% (BldA) [Mass fraction] 100 % Shu Praisler-Wood BRICK MOLDER HAND.FURNACE STOCK INSPECTOR Work Phone: [facility] 07-11-2024 11:04-0400 Systolic blood pressure 110 mm[Hg] Shu Praisler-Wood BRICK MOLDER HAND.FURNACE STOCK INSPECTOR Work Phone: [facility] 06-19-2024 10:57-0400 Body temperature 97.7 [degF] Haley Black BRICK MOLDER HAND.FURNACE STOCK INSPECTOR Work Phone: [facility] 06-19-2024 10:57-0400 Body weight 76 kg Haley Black BRICK MOLDER HAND.FURNACE STOCK INSPECTOR Work Phone: [facility] 06-19-2024 10:57-0400 Diastolic blood pressure 77 mm[Hg] Haley Black BRICK MOLDER HAND.FURNACE STOCK INSPECTOR Work Phone: [facility] 06-19-2024 10:57-0400 Heart rate 99 /min Haley Black BRICK MOLDER HAND.FURNACE STOCK INSPECTOR Work Phone: [facility] 06-19-2024 10:57-0400 Respiratory rate 18 /min Haley Black BRICK MOLDER HAND.FURNACE STOCK INSPECTOR Work Phone: [facility] 06-19-2024 10:57-0400 SaO2% (BldA) [Mass fraction] 99 % Haley Black BRICK MOLDER HAND.FURNACE STOCK INSPECTOR Work Phone: [facility] 06-19-2024 10:57-0400 Systolic blood pressure 109 mm[Hg] Haley Black BRICK MOLDER HAND.FURNACE STOCK INSPECTOR Work Phone: [facility] 05-17-2024 14:04-0400 Body temperature 97.81 [degF] Arielle Arias BRICK MOLDER HAND.FURNACE STOCK INSPECTOR Work Phone: [facility] 05-17-2024 14:04-0400 Body weight 75.75 kg Arielle Arias BRICK MOLDER HAND.FURNACE STOCK INSPECTOR Work Phone: [facility] 05-17-2024 14:04-0400 Diastolic blood pressure 76 mm[Hg] Arielle Arias BRICK MOLDER HAND.FURNACE STOCK INSPECTOR Work Phone: [facility] 05-17-2024 14:04-0400 Heart rate 80 /min Arielle Arias BRICK MOLDER HAND.FURNACE STOCK INSPECTOR Work Phone: [facility] 05-17-2024 14:04-0400 Respiratory rate 14 /min Arielle Arias BRICK MOLDER HAND.FURNACE STOCK INSPECTOR Work Phone: [facility] 05-17-2024 14:04-0400 SaO2% (BldA) [Mass fraction] 98 % Arielle Arias BRICK MOLDER HAND.FURNACE STOCK INSPECTOR Work Phone: [facility] 05-17-2024 14:04-0400 Systolic blood pressure 114 mm[Hg] Arielle Arias BRICK MOLDER HAND.FURNACE STOCK INSPECTOR Work Phone: [facility] 03-23-2024 13:12-0400 Body temperature 97.59 [degF] Riccardo WERNER Work Phone: [facility] 03-23-2024 13:12-0400 Body weight 77.3 kg Riccardo Nahid PA Work Phone: [facility] 03-23-2024 13:12-0400 Diastolic blood pressure 73 mm[Hg] Riccardo Nahid PA Work Phone: [facility] 03-23-2024 13:12-0400 Heart rate 79 /min Riccardo Nahid PA Work Phone: [facility] 03-23-2024 13:12-0400 Respiratory rate 18 /min Riccardo Nahid PA Work Phone: [facility] 03-23-2024 13:12-0400 SaO2% (BldA) [Mass fraction] 97 % Riccardo Nahid PA Work Phone: [facility] 03-23-2024 13:12-0400 Systolic blood pressure 106 mm[Hg] Riccardo Nahid PA Work Phone: [facility] 05-01-2022 10:39-0400 Body temperature 97 [degF] Asif Radha BRICK MOLDER HAND.FURNACE STOCK INSPECTOR Work Phone: [facility] 05-01-2022 10:39-0400 Body weight 70.31 kg Asif Radha BRICK MOLDER HAND.FURNACE STOCK INSPECTOR Work Phone: [facility] 05-01-2022 10:39-0400 Diastolic blood pressure 74 mm[Hg] Asif Radha BRICK MOLDER HAND.FURNACE STOCK INSPECTOR Work Phone: [facility] 05-01-2022 10:39-0400 Heart rate 88 /min Asif Radha BRICK MOLDER HAND.FURNACE STOCK INSPECTOR Work Phone: [facility] 05-01-2022 10:39-0400 Respiratory rate 18 /min Asif Radha BRICK MOLDER HAND.FURNACE STOCK INSPECTOR Work Phone: [facility] 05-01-2022 10:39-0400 SaO2% (BldA) [Mass fraction] 100 % Asif Radha BRICK MOLDER HAND.FURNACE STOCK INSPECTOR Work Phone: [facility] 05-01-2022 10:39-0400 Systolic blood pressure 117 mm[Hg] Asif Radha BRICK MOLDER HAND.FURNACE STOCK INSPECTOR Work Phone: [facility] Encounters Encounter Date Encounter Type Care Provider Facility Start: 03-04-2025 End: 03-04-2025 Telephone encounter Lalito Rocha DO Work Phone: Endocrinology Comment on above: Blood Sugar Reading Start: 03-02-2025 End: 03-02-2025 Patient encounter procedure Alfred Arcos MD Work Phone: OB/Gynecology Comment on above: Supervision of high risk in third trimester (HCC) (Primary Dx); Pre-existing diabetes mellitus in in third trimester (HCC); Previous section; Anemia complicating , third trimester (HCC); Obesity during (HCC); Rh negative state in antepartum period (HCC); 37 weeks gestation of (HCC) Start: 03-02-2025 End: 03-02-2025 ambulatory ALFRED ARCOS Facility:[facility] Start: 03-01-2025 End: 03-01-2025 Telephone encounter Mayra Vincent MD Work Phone: OB/Gynecology Comment on above: Possible SROM. C/S Start: 03-01-2025 End: 03-01-2025 ambulatory No Primary Care Physician [facility] Work Phone: Start: 03-01-2025 End: 03-01-[address] Mayra Cam MD [facility] Work Phone: Start: 02-26-2025 End: 02-26-2025 Patient encounter procedure Woody Bass MD Work Phone: OB/Gynecology Comment on above: Supervision of high risk in third trimester (HCC) (Primary Dx); 37 weeks gestation of (HCC); Pre-existing diabetes mellitus in in third trimester (HCC); Previous section Start: 02-26-2025 End: 02-26-2025 ambulatory WOODY BASS Facility:[facility] Start: 02-24-2025 End: 02-24-2025 ambulatory No Primary Care Physician [facility] Work Phone: Start: 02-24-2025 End: 02-24-[address] Mayra Cam MD -[facility] Work Phone: Start: 02-24-2025 End: 02-24-2025 Telephone encounter Kati Rolle BRICK MOLDER HAND.CNM Work Phone: OB/Gynecology Comment on above: Patient Update Start: 02-22-2025 End: 02-22-2025 Telemedicine consultation with patient Lalito Rocha DO Work Phone: Endocrinology Start: 02-22-2025 End: 02-22-2025 ambulatory Lalito Rocha DO Work Phone: Endocrinology Comment on above: Insulin controlled g estational diabetes mellitus (GDM) in third trimester (HCC) (Primary Dx) Start: 02-20-2025 End: 02-20-2025 Telephone encounter Lalito Rocha DO Work Phone: Endocrinology Comment on above: Blood Sugar Reading Start: 02-19-2025 End: 02-19-2025 Patient encounter procedure Whi Tech 1 Obstetrics Gynecology Physician [facility] Comment on above: Pre-existing diabete s mellitus in in second trimester (HCC) (Primary Dx) Supervision of high risk in third trimester (HCC) (Primary Dx); Pre-existing diabetes mellitus in in third trimester (HCC); Previous section; Anemia complicating , third trimester (HCC); Obesity during (HCC) Start: 02-19-2025 End: 02-19-2025 ambulatory ELBA KHANNA Facility:[facility] Start: 02-11-2025 End: 02-11-2025 ambulatory MELISSA AGUILERA Facility:[facility] Start: 02-08-2025 End: 02-08-2025 Patient encounter procedure Whi Tech 1 Obstetrics Gynecology Physician [facility] Comment on above: Pre-existing diabete s mellitus in in second trimester (HCC) (Primary Dx); 34 weeks gestation of ([facility]) Start: 02-08-2025 End: 02-08-2025 ambulatory ALFRED ARCOS Facility:[facility] Start: 02-04-2025 End: 02-04-2025 Patient encounter procedure Gee Carlin MD Work Phone: OB/Gynecology Comment on above: Supervision of high risk in third trimester (HCC) (Primary Dx); Previous section; Pre-existing diabetes mellitus in in third trimester (HCC); 34 weeks gestation of (HCC); Headache in , antepartum, third trimester (HCC) Start: 02-04-2025 End: 02-04-2025 ambulatory GEE CARLIN Facility:[facility] Start: 02-02-2025 End: 02-02-2025 Telephone encounter Lalito Rocha DO Work Phone: Endocrinology Comment on above: Blood Sugar Reading Start: 02-01-2025 End: 02-01-2025 Patient encounter procedure Whi Tech 1 Obstetrics Gynecology Physician [facility] Comment on above: Pre-existing diabete s mellitus in in second trimester (HCC) (Primary Dx); 33 weeks gestation of (HCC) Start: 02-01-2025 End: 02-01-2025 ambulatory ALFRED ARCOS Facility:[facility] Start: 01-28-2025 End: 01-28-2025 Patient encounter procedure Alfred Arcos MD Work Phone: OB/Gynecology Comment on above: Supervision of high risk in third trimester (HCC) (Primary Dx); Previous section; Anemia complicating , third trimester (HCC); 33 weeks gestation of (HCC); Pre-existing diabetes mellitus in in third trimester (HCC) Start: 01-28-2025 End: 01-28-2025 ambulatory ALFRED ARCOS Facility:[facility] Start: 01-27-2025 End: 01-27-2025 Telephone encounter Lalito Rocha DO Work Phone: Endocrinology Comment on above: Blood Sugar Reading Start: 01-26-2025 End: 01-26-2025 Patient encounter procedure Whi Tech 1 Obstetrics Gynecology Physician [facility] Comment on above: Pre-existing diabete s mellitus in in second trimester (HCC) (Primary Dx); 32 weeks gestation of (HCC) Start: 01-26-2025 End: 01-26-2025 ambulatory ALFRED ARCOS Facility:[facility] Start: 01-25-2025 End: 01-25-2025 ambulatory Treatment Rm 14 [facility] Work Phone: Hematology/Oncology Comment on above: [...] trimester (HCC) Start: 01-22-2025 End: 01-22-2025 [facility] Start: 01-22-2025 End: 01-22-2025 Patient encounter procedure Whi Tech 1 Obstetrics Gynecology Physician [facility] Comment on [...] End: 01-20-2025 ambulatory Treatment Rm 18 [facility] Work Phone: Hematology/Oncology Comment on above: Maternal iron defici ency anemia complicating , third trimester (HCC) (Primary Dx) Start: 01-19-2025 End: 01-19-2025 Telephone encounter Lalito Rocha DO Work Phone: Endocrinology Comment on above: Blood Sugar Reading Start: 01-18-2025 End: 01-18-2025 ambulatory Treatment Rm 15 [facility] Work Phone: Hematology/Oncology Comment on above: Maternal iron defici ency anemia complicating , third trimester (HCC) (Primary Dx) Start: 01-14-2025 End: 01-14-2025 ambulatory [facility] Facility:[facility] Start: 01-12-2025 End: 01-12-2025 Telephone encounter Lalito Rocha DO Work Phone: Endocrinology Comment on above: Blood Sugar Reading Start: 01-12-2025 End: 01-12-2025 ambulatory Treatment Rm 15 [facility] Work Phone: Hematology/Oncology Comment on above: Malignant neoplasm o f prostate (HCC) (Primary Dx); Maternal iron deficiency anemia complicating , third trimester (HCC) Start: 01-08-2025 End: 01-08-2025 Telephone encounter Melissa Chavez RN [facility]aternal [facility] Comment on above: Application Development Project Manager - O ther (PRAF) Start: 01-07-2025 End: 01-07-2025 Patient encounter procedure Alfred Arcos MD Work Phone: OB/Gynecology Comment on above: 30 weeks gestation o f (HCC) (Primary Dx); Previous section; Need for vaccination; Pre-existing diabetes mellitus in in second trimester (HCC); Maternal iron deficiency anemia complicating , third trimester (HCC) Start: 01-07-2025 End: 01-07-2025 ambulatory [facility] Facility:[facility] Start: 01-05-2025 End: 01-05-2025 Telephone encounter Lalito Rocha DO Work Phone: Endocrinology Comment on above: Blood Sugar Reading Start: 12-30-2024 End: 12-30-2024 ambulatory Thom Dean RNwaste management specialist [place] in [place] Comment on above: Blood Management Start: 12-28-2024 End: 12-28-2024 Telephone encounter Lalito Rocha DO Work Phone: Endocrinology Comment on above: Blood Sugar Reading Start: 12-25-2024 End: 12-25-2024 ambulatory [facility] Facility:[facility] Start: 12-25-2024 End: 12-25-2024 Patient encounter procedure Alfred Arcos MD Work Phone: OB/Gynecology Comment on above: Pre-existing diabete s mellitus in in second trimester (HCC) (Primary Dx); Previous delivery affecting , antepartum (HCC); Supervision of high risk in third trimester (HCC) Encounter for ultras ound to check growth (HCC) (Primary Dx); Pre-existing diabetes mellitus in in second trimester (HCC); 28 weeks gestation of (HCC) Start: 12-20-2024 End: 12-20-2024 Telephone encounter Lalito Rocha DO Work Phone: Endocrinology Comment on above: Blood Sugar Reading Start: 12-15-2024 End: 12-15-2024 Telephone encounter Lalito Cordova Aj DO Work [...] Phone: OB/Gynecology Start: 12-03-2024 End: 12-03-2024 ambulatory ALFRED ARCOS Facility:[facility] Start: 12-03-2024 End: 12-03-2024 Patient encounter procedure Whi Tech 1 Obstetrics Gynecology Physician [facility] Comment on above: Encounter for ultras ound to check growth (Primary Dx); Diet controlled gestational diabetes mellitus (GDM) in second trimester; 25 weeks gestation of Supervision of high risk in second trimester (Primary Dx); Pre-existing diabetes mellitus in in second trimester; Previous delivery affecting , antepartum; 25 weeks gestation of Start: 11-30-2024 End: 11-30-2024 Telephone encounter Lalito Cordova Aj DO Work Phone: Endocrinology Comment on above: Blood Sugar Reading Start: 11-22-2024 End: 11-22-2024 Telephone encounter Lalito Cordova Aj DO Work Phone: Endocrinology Comment on above: Blood Sugar Reading Start: 11-15-2024 End: 11-15-2024 Telephone encounter Lalito Art Rocha DO Work [...] Start: 11-10-2024 End: 11-10-2024 ambulatory EDIE MAYER Facility:[facility] Start: 11-09-2024 End: 11-09-2024 Telephone encounter Melissa Chavez RN Maternal Medic ine Comment on above: Application Development Project Manager - O ther (PRAF) Start: 11-08-2024 End: 01-08-2025 Follow-up encounter Melissa Aguilera MD Work Phone: OB/Gynecology Start: 11-06-2024 End: 11-06-2024 ambulatory ALFRED ARCOS Facility:[facility] Start: 11-06-2024 End: 11-06-2024 Patient encounter procedure Alfred Arcos MD Work Phone: OB/Gynecology Comment on above: Supervision of high risk in second trimester (Primary Dx); Pre-existing diabetes mellitus in in second trimester; 21 weeks gestation of ; Previous delivery affecting , antepartum Start: 11-06-2024 End: 11-06-2024 ambulatory MELISSA AGUILERA Facility:[facility] Start: 11-06-2024 End: 11-06-2024 Patient encounter procedure Whi Tech 1 Obstetrics Gynecology Physician [facility] Comment on above: Encounter for anatomic survey (Primary Dx); Encounter for supervision of other normal in second trimester; 21 weeks gestation of Start: 11-01-2024 End: 11-01-2024 Telephone encounter Lalito Rocha DO Work Phone: Endocrinology Comment on above: Blood Sugar Reading Start: 10-24-2024 End: 10-26-2024 ambulatory Lalito Rocha DO Work Phone: Endocrinology Comment on above: Insulin controlled g estational diabetes mellitus (GDM) in second trimester (Primary Dx) Start: 10-24-2024 End: 10-24-2024 Telemedicine consultation with patient Lalito Rocha DO Work Phone: Endocrinology Start: 10-20-2024 End: 10-20-2024 Telephone encounter Lalito Rocha DO Work Phone: Endocrinology Start: 10-20-2024 End: 10-20-2024 ambulatory [facility] Facility:[facility] Start: 10-20-2024 End: 10-20-2024 Office outpatient visit 25 minutes Arleth Gillespie PA-C Work Phone: [facility] Comment on above: Acute non-recurrent sinusitis, unspecified location (Primary Dx) Start: 10-15-2024 End: 10-16-2024 Telephone encounter Lalito Rocha DO Work Phone: Endocrinology Start: 10-13-2024 End: 10-13-2024 Telephone encounter Lalito Rocha DO Work Phone: Endocrinology Start: 10-12-2024 [...] in second trimester Start: 10-09-2024 End: 10-09-2024 ambulatory MELISSA AGUILERA Facility:[facility] Start: 10-09-2024 End: 10-09-2024 Patient encounter procedure Whi Tech 1 Obstetrics Gynecology Physician [facility] Comment on above: Encounter for antena mona screening for malformation using ultrasound (Primary Dx); Encounter for anatomic survey; 17 weeks gestation of Start: 10-07-2024 End: 10-07-2024 Emergency department patient visit Jay Alvarez Facility:[facility] Start: 10-05-2024 End: 10-05-2024 Emergency department patient visit Lonnie Kumari Facility:[facility] Start: 09-22-2024 End: 09-22-2024 Nursing evaluation of patient and report Janice Cole RN Work Phone: Endocrinology Comment on above: Diet controlled gest ational diabetes mellitus (GDM) in second trimester Start: 09-22-2024 End: 09-22-2024 ambulatory ELBA KHANNA Facility:[facility] Start: 09-18-2024 End: 09-18-2024 Telephone encounter Elba Khanna APRN.FURNACE STOCK INSPECTOR Work Phone: OB/Gynecology Comment on above: Gestational Diabetes Start: 09-18-2024 End: 09-18-2024 ambulatory KATI ROLLE Facility:[facility] Start: 09-15-2024 End: 09-17-2024 Orders Only Kati Rolle BRICK MOLDER HAND.CNM Work Phone: [facility] Comment on above: Elevated hemoglobin A1c (Primary Dx) Results Start: 09-11-2024 End: 09-11-2024 Office outpatient visit 15 minutes Melissa Aguilera MD Work Phone: OB/Gynecology Comment on above: 13 weeks gestation o f (Primary Dx); Encounter for supervision of other normal in second trimester Start: 09-11-2024 End: 09-11-2024 [facility] Start: 09-11-2024 End: 09-11-2024 Patient encounter procedure Whi Tech 1 Obstetrics Gynecology Physician [facility] Comment on above: Encounter for eliuda mona screening for malformation using ultrasound (Primary Dx); 13 weeks gestation of Start: 08-15-2024 End: 08-15-2024 [facility] Facility:[facility] Start: 08-15-2024 End: 08-15-2024 Patient encounter procedure June Coronel JOSE.FURNACE STOCK INSPECTOR Work Phone: [facility] Comment on above: Bacterial sinusitis (Primary Dx); Bacterial conjunctivitis Start: 08-10-2024 End: 08-10-2024 Subsequent hospital visit by physician Xr [facility] Work Phone: Radiology Comment on above: Acute cough [R05.1] Start: 08-10-2024 End: 08-10-2024 [facility] Facility:[facility] Start: 08-10-2024 End: 08-10-2024 Patient encounter procedure Yong King JOSE.FURNACE STOCK INSPECTOR Work Phone: [facility] Comment on above: URI, acute (Primary Dx); Acute cough Start: 08-04-2024 End: 08-04-2024 Telephone encounter Nurse Obstetrics Gynecology Physician Oliver Blackwell Work Phone: Obstetrics/Gynecology Comment on above: PRAF Start: 08-03-2024 End: 08-03-2024 ambulatory [facility] Facility:[facility] Start: 08-03-2024 End: 08-03-2024 Patient encounter procedure Kati Rolle BRICK MOLDER HAND.CNM Work Phone: OB/Gynecology Comment on above: with [...] diabetes mellitus (GDM) Start: 07-24-2024 End: 07-24-2024 [facility] Start: 07-24-2024 End: 07-24-2024 Patient encounter procedure Arleen Arcos APRN.FURNACE STOCK INSPECTOR Work Phone: [facility] Comment on above: Rhinosinusitis (Prim greg Dx) Start: 07-15-2024 End: 07-15-2024 Emergency department patient visit DESTINI JASE [facility] Start: 07-11-2024 End: 07-11-2024 ambulatory [facility] Facility:[facility] Start: 07-11-2024 End: 07-11-2024 Patient encounter procedure Shu Gomez APRN.FURNACE STOCK INSPECTOR Work Phone: [facility] Comment on above: Missed period (Prima ry Dx); Encounter for confirmation of test result with physical examination Start: 06-19-2024 End: 06-19-2024 Subsequent hospital visit by physician Xr [facility] Work Phone: Radiology Comment on above: Acute cough [R05.1] Start: 06-19-2024 End: 06-19-2024 ambulatory ARLEEN ARCOS Facility:[facility] Start: 06-19-2024 End: 06-19-2024 Patient encounter procedure Haley Black APRN.FURNACE STOCK INSPECTOR Work Phone: [facility] Comment on above: Acute cough (Primary Dx); URI, acute Start: 05-17-2024 End: 05-17-2024 Patient encounter procedure Arielle Arias APRN.FURNACE STOCK INSPECTOR Work Phone: [facility] Comment on above: Bronchitis (Primary Dx); Acute non-recurrent pansinusitis; Lower respiratory infection Start: 05-17-2024 End: 05-17-2024 ambulatory [facility] Facility:[id number] Start: 03-23-2024 End: 03-23-2024 Patient encounter procedure Riccardo WERNER Work Phone: [facility] Comment on above: Acute non-recurrent frontal sinusitis (Primary Dx); Acute otitis media, left Start: 03-23-2024 End: 03-23-2024 ambulatory RICCARDO LEVINE Facility:[id number] Start: 07-22-2023 End: 07-22-2023 ambulatory ARCENIO DINERO [facility] Start: 05-01-2022 End: 05-01-2022 Patient encounter procedure Asif Del Valle BRICK MOLDER HAND.FURNACE STOCK INSPECTOR Work Phone: [facility] Comment on above: Acute non-recurrent frontal sinusitis (Primary Dx) Start: 10-18-2021 Patient encounter procedure Asif Del Valle BRICK MOLDER HAND.FURNACE STOCK INSPECTOR Work Phone: [facility] Start: 10-18-2021 Progress Note Asif Del Valle APR N.FURNACE STOCK INSPECTOR Work Phone: [facility] Start: 10-18-2021 End: 10-18-2021 Subsequent hospital visit by physician [facility] Provider [facility] Comment on above: SORE THROAT,CONGESTI ON,WATERY EYES,COUGH Start: 07-31-2021 Patient encounter procedure Zoie Potter PA-C Work Phone: [facility] Start: 07-31-2021 Progress Note Zoie garcias PA-C [facility] Phone[facility] Start: 04-27-2021 Patient encounter procedure Misty Rene PA-C Work Phone: [facility] Start: 04-27-2021 Progress Note Misty Rene PA-C Work Phone: [facility] Start: 03-27-2021 Patient encounter procedure Asif Del Valle BRICK MOLDER HAND.FURNACE STOCK INSPECTOR Work Phone: [facility] Start: 03-27-2021 Progress Note Asif Del Valle APR N.FURNACE STOCK INSPECTOR Work Phone: [facility] Start: 03-22-2021 Patient encounter procedure Asif Del Valle BRICK MOLDER HAND.FURNACE STOCK INSPECTOR Work Phone: [facility] Start: 03-22-2021 Progress Note Asif Del Valle APR N.FURNACE STOCK INSPECTOR Work Phone: [facility] Start: 12-30-2020 Patient encounter procedure Destini Rogel Work Phone: [facility] Start: 12-30-2020 Progress Note Destini Nolasco chuyita Work Phone: [facility] Procedures Date Procedure Procedure Detail Performing Clinician Start: 03-02-2025 Urnls dip stick/tabl et rgnt non-auto w/o micrscp Alfred Arcos MD Work Phone: Start: 03-01-2025 Urnls dip stick/tabl et reagent auto microscopy No Primary Care Physician Start: 03-01-2025 Measurement of pH in vaginal fluid specimen using nitrazine yellow for detection of rupture of amniotic membrane No Primary Care Physician Comment on above: Amniotic fluid not p resent indicates No Rupture of FetalMembranes at time of specimen collection. Start: 03-01-2025 Measurement of pH in vaginal fluid specimen using nitrazine yellow for detection of rupture of amniotic membrane No Primary Care Physician Comment on above: Amniotic fluid not p resent indicates No Rupture of FetalMembranes at time of specimen collection. Start: 02-26-2025 Urnls dip stick/tabl et rgnt non-auto w/o micrscp Woody Bass MD Work Phone: Start: 02-24-2025 Urnls dip stick/tabl et reagent auto microscopy No Primary Care Physician Start: 02-19-2025 Us preg uterus after 1st trimest 09/23 gestation Elba Khanna APRN.FURNACE STOCK INSPECTOR Work Phone: Start: 02-11-2025 Antibody screen KIMI CORREIA Comment on above: Order Comment: Speci men Type: BLOOD SPECIMEN Ordering Facility: [facility] Address: [address] [place], [place] [id number] Performed By: #### T SPN #### [facility] CLIA [id number] [address] [place] [address] [place] Start: 02-08-2025 Us preg uterus after 1st trimest 09/23 gestation Alfred Arcos MD Work Phone: Start: 02-04-2025 Urnls dip stick/tabl et rgnt non-auto w/o micrscp Gee Carlin MD Work Phone: Start: 02-01-2025 Us preg uterus after 1st trimest 09/23 gestation Alfred Arcos MD Work Phone: Start: 01-26-2025 Us preg uterus after 1st trimest 09/23 gestation Alfred Arcos MD Work Phone: Start: 01-22-2025 Us preg uterus after 1st trimest 09/23 gestation Elba Fernandezcar BRICK MOLDER HAND.FURNACE STOCK INSPECTOR Work Phone: Start: 01-21-2025 Follow-up visit Follow Up LALITO Art ROCHA Start: 12-25-2024 Urnls dip stick/tabl et rgnt non-auto w/o micrscp Alfred Arcos MD Work Phone: Start: 12-25-2024 Us preg uterus after 1st trimest 09/23 gestation Elba Jimcar GARCIA.FURNACE STOCK INSPECTOR Work Phone: Start: 12-03-2024 Urnls dip stick/tabl et rgnt non-auto w/o micrscp Alfred Arcos MD Work Phone: Start: 12-03-2024 Us preg uterus after 1st trimest 09/23 gestation Elba Fernandezcar BRICK MOLDER HAND.FURNACE STOCK INSPECTOR Work Phone: Start: 11-06-2024 Us preg uterus after 1st trimest 09/23 gestation Melissa Aguilera MD Work Phone: Start: 10-09-2024 Urnls dip stick/tabl et rgnt non-auto w/o micrscp Melissa Aguilera MD Work Phone: Start: 10-09-2024 Us preg uterus after 1st trimest 09/23 gestation Kati Rolle BRICK MOLDER HAND.CN Work Phone: Start: 09-11-2024 Antibody screen KIMI CORREIA Comment on above: Order Comment: Speci men Type: BLOOD SPECIMEN Ordering Facility: [facility] Address: [address] [place] [address] Performed By: #### M AT21 #### [facility] [id number] [place] [address] Start: 09-11-2024 Us nuchal translucency 1st gestation Kati Rolle BRICK MOLDER HAND.CNM Work Phone: Start: 08-10-2024 Radiologic exam ches t 2 views Yong Gatito BRICK MOLDER HAND.FURNACE STOCK INSPECTOR Work Phone: Start: 08-03-2024 H/O: section Previous delivery affecting , antepartum Kati Rlole BRICK MOLDER HAND.CNM Work Phone: Start: 08-03-2024 Us uterus limited 1/> fetuses Kati Rolle BRICK MOLDER HAND.CNM Work Phone: Start: 07-11-2024 UA DIP,URINE HCG (POC) [facility] Provider Start: 06-19-2024 Radiologic exam ches t 2 views Arlene Arcos BRICK MOLDER HAND.FURNACE STOCK INSPECTOR Work Phone: Start: 05-01-2022 Adult depression screening assessment Asif Gonzalezyer BRICK MOLDER HAND.FURNACE STOCK INSPECTOR Work Phone: H/O: section Previous c esarean [...] esarean section Mayra Vincent MD Work Phone: H/O: section History of delivery affecting No Primary Care Physician H/O: section History of delivery affecting Dr Mayra Cam MD H/O: section Previous c esarean section Woody Bass MD Work Phone: H/O: section History of delivery affecting Dr Mayra Cam MD H/O: section Previous c esarean section Alfred Arcos MD Work Phone: Plan of Treatment Date Care Activity Detail Author Start: 01-07-2035 Urine microalbumin profile DTaP,Tdap,Td Vaccine (8 - Td or Tdap) [facility] Start: 08-03-2027 Screening for malignant neoplasm of cervix Cervical Cancer Screening [facility] Start: 05-24-2025 Influenza vaccination Influenz a Vaccine (Season Ended) [facility] Start: 05-03-2025 End: 05-03-2025 ambulatory 05/03/2025 3:40 PM EDT [facility] Endocrinology [address] [place], [place] [id number] Lalito Rocha, DO [address] [place] [address] post 05/03 virtual nm Endocrinology Comment on above: post 05/03 vir tumt ok Start: 04-23-2025 End: 07-23-2025 GLUC HENRIQUE, 2-HR NON-GEST, 75 GM, FASTING GLUC HENRIQUE, 2-HR NON-GEST, 75 GM, FASTING Lab Routine Insulin controlled gestational diabetes mellitus (GDM) in third trimester (HCC) Expected: 04/23/2025 (Approximate), Expires: 07/23/2025 [facility] Work Phone: Comment on above: Expected: 04/23/2025 (Approximate), Expires: 07/23/2025 Start: 03-12-2025 End: 03-12-2025 Patient encounter procedure 03/12/2025 10:50 AM EDT Office Visit OB/Gynecology [address] [place], [place] [address] Melissa Aguilera MD [address] [place] [address] 1 week incision check OB/Gynecology Comment on above: 1 week incision chec k Start: 03-05-2025 ambulatory Ambulatory Facility:[facility] Start: 03-02-2025 End: 03-02-2025 Patient encounter procedure OB/Gynecology Comment on above: NST Ob Start: 03-01-2025 End: 03-01-2025 [facility] Start: 03-01-2025 Nonstress test [facility] Start: 03-01-2025 Obstetric monitoring [facility] Start: 03-01-2025 Vital signs measurements [facility] Start: 03-01-2025 Bacteria identified in Urine by Culture Urine Culture [facility] Start: 03-01-2025 Nonstress test [facility] Start: 03-01-2025 Obstetric monitoring [facility] Start: 03-01-2025 Vital signs measurements [facility] Start: 03-01-2025 [facility] Start: 03-01-2025 Patient discharge [facility] Start: 02-26-2025 End: 02-26-2025 Patient encounter procedure OB/Gynecology Comment on above: NST OB Start: 02-24-2025 Nonstress test [facility] Start: 02-24-2025 Obstetric monitoring [facility] Start: 02-24-2025 [facility] Start: 02-24-2025 Vital signs measurements [facility] Start: 02-24-2025 Patient discharge [facility] Start: 02-22-2025 End: 02-22-2025 ambulatory 02/22/2025 11:00 AM EDT [facility] [address] [place] [address] Lalito Rocha, [address] [place] [address] 4 weeks virtual ok- GDM Endocrinology Comment on above: 4 weeks virtual ok- GDM Start: 02-19-2025 End: 02-19-2025 Patient encounter procedure 02/19/2025 11:20 AM EDT Routine Office Visit OB/Gynecology [address] [place] [address] Mayra Frey MD [address] [place] [address] OB Pre Op C/S 03/05 @ [facility] OB/Gynecology Comment on above: OB Pre Op C/S 03/05 @ [facility] Start: 02-19-2025 End: 02-19-2025 Patient encounter procedure OB/Gynecology Comment on above: OB Pre Op C/S 03/05 @ [facility] Growth Start: 02-11-2025 End: 02-11-2025 Patient encounter procedure OB/Gynecology Comment on above: NST OB Routine Start: 02-08-2025 End: 02-08-2025 Patient encounter procedure 02/08/2025 11:00 AM EDT Routine Office Visit [facility] [address] [place] [address] [facility] Comment on above: [facility] Start: 02-04-2025 End: 02-04-2025 Patient encounter procedure OB/Gynecology Comment on above: NST OB Routine Start: 02-04-2025 End: 05-06-2025 Protein/Creatinine [Mass Ratio] in Urine [facility] Work Phone: Comment on above: Expected: 02/04/2025 , Expires: 05/06/2025 Start: 02-01-2025 End: 02-01-2025 Patient encounter procedure 02/01/2025 11:00 AM EDT Routine Office Visit [facility]aternal Medicine [address] [place] [address] [facility] Comment on above: [facility] Start: 01-28-2025 End: 01-28-2025 Patient encounter procedure OB/Gynecology Comment on above: NST OB Routine Start: 01-26-2025 End: 01-26-2025 Patient encounter procedure 01/26/2025 8:00 AM EDT Routine Office Visit Maternal Medicine [address] [place] [address] [facility] Comment on above: [facility] Start: 01-25-2025 End: 01-25-2025 ambulatory 01/25/2025 1:30 PM EDT [facility] Hematology/Oncology [address] [place] [address] 2ND FLOOR Hematology/Oncology Comment on above: 2ND FLOOR Start: 01-22-2025 End: 01-22-2025 Patient encounter procedure 01/22/2025 2:40 PM EDT Routine Office Visit OB/Gynecology [address] [place] [address] Alfred Arcos MD [address] [place] [address] ob OB/Gynecology Comment on above: ob Start: 01-22-2025 End: 01-22-2025 Patient encounter procedure 01/22/2025 1:30 PM EDT Routine Office Visit Maternal Medicine [address] [place] [address] Growth /ob Maternal Medicine Comment on above: Growth /ob Start: 01-21-2025 End: 01-21-2025 Follow-up encounter 01/21/2025 8:40 AM EDT [facility] Endocrinology [address] [place] [address] Lalito Rocha, DO [address] [place] [address] 6 week virtual follow up per [facility] Comment on above: 6 week virtual follo w up per [facility] Start: 01-20-2025 End: 01-20-2025 ambulatory 01/20/2025 1:30 PM EDT Infusion Center Hematology/Oncology [address] [place] [address] 2ND FLOOR Hematology/Oncology Comment on above: 2ND FLOOR Start: 01-18-2025 End: 01-18-2025 ambulatory 01/18/2025 2:00 PM EDT Infusion Center Hematology/Oncology [address] [place] [id number] 2ND FLOOR Hematology/Oncology Comment on above: 2ND FLOOR Start: 01-14-2025 End: 01-14-2025 ambulatory 01/14/2025 2:30 PM EDT Infusion Center Hematology/Oncology [address] [place] [address] 2ND FLOOR Hematology/Oncology Comment on above: 2ND FLOOR Start: 01-12-2025 End: 01-12-2025 ambulatory 01/12/2025 2:00 PM EDT Infusion Center Hematology/Oncology [address] [place] [address] 2ND FLOOR Hematology/Oncology Comment on above: 2ND FLOOR Start: 01-07-2025 End: 01-07-2025 Patient encounter procedure 01/07/2025 2:40 PM EDT Routine Office Visit OB/Gynecology [address] [place] [address] Alfred Arcos MD [address] [place] [address] OB-Tdap OB/Gynecology Comment on above: OB-Tdap Start: 12-25-2024 End: 12-25-2024 Patient encounter procedure [facility]aternal Medicine Comment on above: Growth OB Start: 12-07-2024 End: 12-07-2024 Follow-up encounter 12/07/2024 8:40 AM EDT [facility] Endocrinology [address] [place] [address] Lalito Rocha, DO [address] [place], [place] [id number] 6 week follow up per [facility] Comment on above: 6 week follow up per [facility] Start: 12-03-2024 End: 03-04-2025 ANEMIA REFLEX PANEL ANEMIA REFLEX PANEL Lab Routine Pre-existing diabetes mellitus in in second trimester Previous delivery affecting , antepartum Supervision of high risk in second trimester 25 weeks gestation of Expected: 12/03/2024, Expires: 03/04/2025 [facility] Comment on above: Expected: 12/03/2024 , Expires: 03/04/2025 Start: 12-03-2024 End: 12-03-2025 SYPHILIS TREPONEMAL W/REFLEX SYPHILIS TREPONEMAL W/REFLEX Lab Routine Pre-existing diabetes mellitus in in second trimester Previous delivery affecting , antepartum Supervision of high risk in second trimester 25 weeks gestation of Expected: 12/03/2024, Expires: 12/03/2025 [facility] Work Phone: Comment on above: Expected: 12/03/2024 , Expires: 12/03/2025 Start: 12-03-2024 End: 12-03-2024 Patient encounter procedure Maternal Medicine Comment on above: Growth Growth/OB Start: 11-10-2024 End: 11-10-2024 ambulatory 11/10/2024 2:00 PM EST Procedure Pediatric Cardiology [address] [place], [place] [id number] Edie Mayer MD [address] [place], [place] [id number] Pre-existing type 2 diabetes mellitus during in first trimester [O24.1... Pediatric Cardiology Comment on above: Pre-existing type 2 diabetes mellitus during in first trimester [O24.1... Start: 11-10-2024 End: 11-10-2024 Patient encounter procedure Pediatric Cardiology Comment on above: Pre-existing type 2 diabetes mellitus during in first trimester [O24.1... type 2 diabetes samara itus - nml anatomy Start: 11-06-2024 End: 11-06-2024 Patient encounter procedure 11/06/2024 11:40 AM EST Routine Office Visit OB/Gynecology [address] [place] [address] Alfred Arcos MD [address] [place] [address] OB Routine OB/Gynecology Comment on above: OB Routine Start: 11-06-2024 End: 11-06-2024 Patient encounter procedure 11/06/2024 10:30 AM EST Routine Office Visit Maternal Medicine [address] [place] [id number] Anatomy Scan [facility] Comment on above: Anatomy Scan Start: 11-05-2024 End: 11-05-2024 Patient encounter procedure 11/05/2024 11:00 AM EST Routine Office Visit Maternal Medicine [address] [address] Anatomy Scan [facility] Comment on above: Anatomy Scan Start: 11-03-2024 End: 11-03-2024 ambulatory 11/03/2024 9:00 AM EST [facility] Endocrinology [address] [place] [address] Eliezer Alonzo MD [address] [place] [address] 17 weeks gestation of [Z3A.17]; Pre-existing type 2 diabetes mellitus during in first trimester [O24.111] Endocrinology Comment on above: 17 weeks gestation o f [Z3A.17]; Pre-existing type 2 diabetes mellitus during in first trimester [O24.111] Start: 11-02-2024 End: 11-02-2024 Nutrition therapy 11/02/2024 1:00 PM EST Education Nutrition Therapy [address] [place] [address] [place] [address] O24.410 (ICD-10-CM) - Diet controlled gestational diabetes mellitus (GDM) in second trimester Nutrition Therapy Comment on above: O24.410 (ICD-10-CM) - Diet controlled gestational diabetes mellitus (GDM) in second trimester Start: 10-24-2024 End: 10-24-2024 ambulatory 10/24/2024 2:20 PM EST [facility] [address] [place] [address] Lalito Rocha DO [address] [place] [address] NEW GDM Endocrinology Comment on above: NEW GDM Start: 10-12-2024 End: 10-12-2024 Nutrition therapy 10/12/2024 1:45 PM EST Education Nutrition Therapy [address] [place] [address] Lay Castro, ANGELICA [address] [place] [address] O24.410 (ICD-10-CM) - Diet controlled gestational diabetes mellitus (GDM) in second trimester Nutrition Therapy Comment on above: O24.410 (ICD-10-CM) - Diet controlled gestational diabetes mellitus (GDM) in second trimester Start: 10-09-2024 End: 10-09-2024 Patient encounter procedure OB/Gynecology Comment on above: OB Routine Anatomy Start: 09-22-2024 End: 09-22-2024 Nursing evaluation of patient and report 09/22/2024 1:00 PM EST Nurse Visit Endocrinology [address] [place] [address] Janice Cole, RN [address] [address] O24.410 (ICD-10-CM) - Diet controlled gestational diabetes mellitus (GDM) in second trimester Endocrinology Comment on above: O24.410 (ICD-10-CM) - Diet controlled gestational diabetes mellitus (GDM) in second trimester Start: 09-18-2024 End: 09-18-2024 ambulatory 09/18/2024 10:00 AM EST Results Only [place] [facility] Laboratory [address] [place] [address] 1 hour Glucose [facility] Laboratory Comment on above: 1 hour Glucose Start: 09-17-2024 End: 09-17-2025 OBSTETRIC ULTRASOUND WHI OBSTETRIC ULTRASOUND WHI Anc Imaging Routine 14 weeks gestation of Expected: 09/17/2024, Expires: 09/17/2025 [facility] Work Phone: Comment on above: Expected: 09/17/2024 , Expires: 09/17/2025 Start: 09-15-2024 End: 12-15-2024 GESTATIONAL GLUCOSE SCREEN, 1-HOUR, 50 GRAM, NON-FASTING GESTATIONAL GLUCOSE SCREEN, 1-HOUR, 50 GRAM, NON-FASTING Lab Routine Elevated hemoglobin A1c Expected: 09/15/2024, Expires: 12/15/2024 [facility] Work Phone: Comment on above: Expected: 09/15/2024 , Expires: 12/15/2024 Start: 09-11-2024 End: 12-11-2024 Chromosome 21 trisomy [Presence] in Blood or Tissue by Cytogenetics [facility] Comment on above: Expected: 09/11/2024 , Expires: 12/11/2024 Start: 09-11-2024 End: 09-11-2025 OBSTETRIC ULTRASOUND WHI OBSTETRIC ULTRASOUND WHI Anc Imaging Routine Encounter for supervision of other normal in second trimester Expected: 09/11/2024, Expires: 09/11/2025 [facility] Work Phone: Comment on above: Expected: 09/11/2024 , Expires: 09/11/2025 Start: 09-11-2024 End: 09-11-2024 Patient encounter procedure OB/Gynecology Comment on above: pregancy Nuchal Start: 08-03-2024 End: 11-02-2024 ANEMIA REFLEX PANEL ANEMIA REFLEX PANEL Lab Routine Previous delivery affecting , antepartum Expected: 08/03/2024, Expires: 11/02/2024 [facility] Work Phone: Comment on above: Expected: 08/03/2024 , Expires: 11/02/2024 Start: 08-03-2024 End: 11-02-2024 Hemoglobin A1c in Blood HEMOGLOBIN A1C Lab Routine Previous delivery affecting , antepartum Expected: 08/03/2024, Expires: 11/02/2024 [facility] Comment on above: Expected: 08/03/2024 , Expires: 11/02/2024 Start: 08-03-2024 End: 11-02-2024 Hepatitis B virus surface Ag [Presence] in Serum HEPATITIS B SURFACE ANTIGEN Lab Routine Previous delivery affecting , antepartum Expected: 08/03/2024, Expires: 11/02/2024 [facility] Comment on above: Expected: 08/03/2024 , Expires: 11/02/2024 Start: 08-03-2024 End: 11-02-2024 Hepatitis C virus Ab [Presence] in Serum HEPATITIS C ANTIBODY IA WITH CONFIRMATION Lab Routine Previous delivery affecting , antepartum Expected: 08/03/2024, Expires: 11/02/2024 [facility] Comment on above: Expected: 08/03/2024 , Expires: 11/02/2024 Start: 08-03-2024 End: 11-02-2024 HIV 1+2 Ab [Presence] in Serum or Plasma by Immunoassay HIV 1/2 COMBO WITH REFLEX TO DIFFERENTIATION Lab Routine Previous delivery affecting , antepartum Expected: 08/03/2024, Expires: 11/02/2024 [facility] Comment on above: Expected: 08/03/2024 , Expires: 11/02/2024 Start: 08-03-2024 End: 08-03-2025 NUCHAL TRANSLUCENCY WHI NUCHAL TRANSLUCENCY WHI Anc Imaging Routine Less than 8 weeks gestation of Expected: 08/03/2024, Expires: 08/03/2025 [facility] Comment on above: Expected: 08/03/2024 , Expires: 08/03/2025 Start: 08-03-2024 End: 11-02-2024 RUBELLA IGG ANTIBODY RUBELLA IGG ANTIBODY Lab Routine Previous delivery affecting , antepartum Expected: 08/03/2024, Expires: 11/02/2024 [facility] Comment on above: Expected: 08/03/2024 , Expires: 11/02/2024 Start: 08-03-2024 End: 11-02-2024 SYPHILIS TREPONEMAL W/REFLEX SYPHILIS TREPONEMAL W/REFLEX Lab Routine Previous delivery affecting , antepartum Expected: 08/03/2024, Expires: 11/02/2024 [facility] Comment on above: Expected: 08/03/2024 , Expires: 11/02/2024 Start: 08-03-2024 End: 11-02-2024 TYPE + SCREEN TYPE + SCREEN Blood Bank Routine Previous delivery affecting , antepartum Expected: 08/03/2024, Expires: 11/02/2024 [facility] Comment on above: Expected: 08/03/2024 , Expires: 11/02/2024 Start: 08-03-2024 End: 08-03-2024 Patient encounter procedure 08/03/2024 1:00 PM EST Initial Office Visit OB/Gynecology [address] [place] [address] ShannantinKati APRN.[facility] [address] [place] [place] [address] pregancy OB/Gynecology Comment on above: pregancy Start: 05-24-2024 Covid-19 Vaccine ( season) Covid-19 Vaccine () [facility] Start: 05-24-2024 Influenza vaccination Influenza Vacc ine (#1) [facility] Start: 09-23-2023 Behavioral Health Screening Behavioral Health Screening [facility] Start: 05-24-2023 Covid-19 Vaccine () Covid-19 Vaccine () [facility] Start: 05-01-2023 Adult depression screening assessment DEPRESSION SCREENING [facility] Start: 05-24-2022 Influenza vaccination INFLUENZA (#1) [facility] Start: 04-28-2022 Urine microalbumin profile DTaP,Tdap,Td Vaccine (7 - Td or Tdap) [facility] Start: 2020 PAP TESTING PAP TESTING [facility] Start: 2020 Screening for malignant neoplasm of cervix Cervical Cancer Screening [facility] Start: 2018 Urine microalbumin profile DTAP,TDAP,TD (1 - Tdap) [facility] Start: 2017 Annual PCP Team Chronic Disease Visit Annual PCP Team Chronic Disease Visit [facility] Start: 2017 Anxiety Screening Anxiety Screening [facility] Start: 2017 CHLAMYDIA SCREENING (18-24) CHLAMYDIA SCREENING (18-24) [facility] Start: 2017 Depression Screening Depression Scre ening [facility] Start: 2017 GC (GONORRHEA) SCREENING (18-24) GC (GONORRHEA) SCREENING (18-24) [facility] Start: 2017 HEPATITIS C SCREENING HEPATITIS C [facility] Start: 2017 Hepatitis C screening Hepatitis C [facility] Start: 2017 HIV SCREENING HIV SCREENING [facility] Start: 2017 HIV screening HIV Screening [facility] Start: 2017 Spirometry Spirometry [facility] Start: 2015 Meningococcal B Vaccine: Consider Based On Risk (1 of 2 - Patient Seeks Protection) Meningococcal B Vaccine: Consider Based On Risk (1 of 2 - Patient Seeks Protection) [facility] Start: 2014 HPV Vaccine (1 - 3-dose series) HPV Vaccine (1 - 3-dose series) [facility] Start: 2013 PEDS TO ADULT TRANSITION ANNUAL ASSESSMENT PEDS TO ADULT TRANSITION ANNUAL ASSESSMENT [facility] Start: 2011 PEDS TO ADULT TRANSITION INITIAL DISCUSSION PEDS TO ADULT TRANSITION INITIAL DISCUSSION [facility] Start: 2010 HPV VACCINE (1 - 2-dose series) HPV VACCINE (1 - 2-dose series) [facility] Start: 2009 MENINGOCOCCAL B: Consider based on risk (1 of 2 - Risk Bexsero 2-dose series) MENINGOCOCCAL B: Consider based on risk (1 of 2 - Risk Bexsero 2-dose series) [facility] Start: 03-03-2000 COVID-19 VACCINE (#1) COVID-19 VACCI NE (#1) [facility] Start: 1999 HEPATITIS B (1 of 3 - 3-dose series) HEPATITIS B (1 of 3 - 3-dose series) [facility] Bacteria identified in Urine by Culture URINE CULTURE Microbiology Routine Previous delivery affecting , antepartum 08/03/2024 2:04 PM [facility] Chlamydia trachomatis+Neisseria gonorrhoeae DNA [Presence] in Unspecified specimen by PARADISE with probe detection GONORRHEA/CHLAMYDIA NAAT Lab Routine Previous delivery affecting , antepartum 08/03/2024 2:04 PM [facility] COVID & INFLUENZA A/ B & RSV PCR, ROUTINE COVID & INFLUENZA A/B & RSV PCR, ROUTINE Microbiology Routine URI, acute Ordered: 06/19/2024 [facility] Work Phone: Comment on above: Ordered: 06/19/2024 End: 10-09-2025 ECHO ECHO Cardiology Routine Pre-existing type 2 diabetes mellitus during in first trimester Pre-existing diabetes mellitus in in second trimester 1 Occurrences starting 10/09/2024 until 10/09/2025 [facility] Work Phone: Comment on above: 1 Occurrences starti ng 10/09/2024 until 10/09/2025 End: 04-16-2025 nonstress test NON-STRESS TEST Procedures Routine Pre-existing diabetes mellitus in in second trimester ([facility]) Once per week for 6 Occurrences starting 01/22/2025 until 04/16/2025 [facility] Comment on above: Once per week for 6 Occurrences starting 01/22/2025 until 04/16/2025 Microscopic urinalysis [facility] End: 03-17-2025 OBSTETRIC ULTRASOUND WHI OBSTETRIC ULTRASOUND WHI Anc Imaging Routine Diet controlled gestational diabetes mellitus (GDM) in second trimester Once per month for 5 Occurrences starting 09/18/2024 until 03/17/2025 [facility] Work Phone: Comment on above: Once per month for 5 Occurrences starting 09/18/2024 until 03/17/2025 End: 04-02-2025 OBSTETRIC ULTRASOUND WHI OBSTETRIC ULTRASOUND WHI Anc Imaging Routine Pre-existing diabetes mellitus in in second trimester ([facility]) Once per week for 6 Occurrences starting 01/22/2025 until 04/02/2025 [facility] Comment on above: Once per week for 6 Occurrences starting 01/22/2025 until 04/02/2025 Organism count, microscopic method [facility] PAP TEST PAP TEST Lab Yahir fajardo Screening for malignant neoplasm of cervix 08/03/2024 2:04 PM EST [facility] Patient Education Kick Counts ED False Labor OB Triage: Return to Hospital or Notify Physician if you Experience: [facility] Work Phone: Patient referral [facility] Work Phone: ROUTINE, GROUP B STREPTOCOCCUS BY PCR ROUTINE, GROUP B STREPTOCOCCUS BY PCR Microbiology Routine Supervision of high risk in third trimester ([facility]) Pre-existing diabetes mellitus in in third trimester ([facility]) Previous section Anemia complicating , third trimester ([facility]) Obesity during ([facility]) 02/19/2025 1:44 PM EDT [facility] Urine culture [facility] Urine microscopy: epithelial cells [facility] Urine microscopy: re d cells [facility] URINE OB DIP B/O URINE OB DIP B/ O Lab Routine Pre-existing diabetes mellitus in in second trimester 21 weeks gestation of Previous delivery affecting , antepartum Supervision of high risk in second trimester Ordered: 11/06/2024 [facility] Work Phone: Comment on above: Ordered: 11/06/2024 URINE OB DIP B/O URINE OB DIP B/ O Lab Routine 32 weeks gestation of (HCC) Pre-existing diabetes mellitus in in second trimester (HCC) Previous section Anemia complicating , third trimester (HCC) Ordered: 01/22/2025 [facility] Work Phone: Comment on above: Ordered: 01/22/2025 URINE OB DIP B/O URINE OB DIP B/ O Lab Routine Previous section Anemia complicating , third trimester (HCC) Supervision of high risk in third trimester ([facility]) 33 weeks gestation of (HCC) Pre-existing diabetes mellitus in in third trimester (HCC) Ordered: 01/28/2025 [facility] Work Phone: Comment on above: Ordered: 01/28/2025 URINE OB DIP B/O URINE OB DIP B/ O Lab Routine Supervision of high risk in third trimester (HCC) Pre-existing diabetes mellitus in in third trimester (HCC) Previous section Anemia complicating , third trimester (HCC) Obesity during ([facility]) Ordered: 02/19/2025 [facility] Work Phone: Comment on above: Ordered: 02/19/2025 White blood cell count [facility] Immunizations Immunization Date Immunization Notes Care Provider Fa tobias 02-11-2025 RHO(D) immune globul in- IV or IM Whi Mob [facility] 01-07-2025 tetanus toxoid, redu anil diphtheria toxoid, and acellular pertussis vaccine, adsorbed Alfred Arcos MD Work Phone: [facility] 04-28-2012 tetanus toxoid, redu anil diphtheria toxoid, and acellular pertussis vaccine, adsorbed Shu Gomez APRN.FURNACE STOCK INSPECTOR Work Phone: [facility] 06-30-2010 influenza, seasonal, injectable Shu Gomez BRICK MOLDER HAND.FURNACE STOCK INSPECTOR Work Phone: [facility] 06-30-2010 influenza virus vacc ine, unspecified formulation Riccardo WERNER Work Phone: [facility] 05-04-2005 diphtheria, tetanus toxoids and acellular pertussis vaccine, unspecified formulation Shu Praisler-Wood BRICK MOLDER HAND.FURNACE STOCK INSPECTOR Work Phone: [facility] 05-04-2005 measles, mumps and rubella virus vaccine Shu Praisler-Wood BRICK MOLDER HAND.FURNACE STOCK INSPECTOR Work Phone: [facility] 05-04-2005 poliovirus vaccine, inactivated Shu Praisler-Wood BRICK MOLDER HAND.FURNACE STOCK INSPECTOR Work Phone: [facility] 02-21-2001 diphtheria, tetanus toxoids and acellular pertussis vaccine, unspecified formulation Shu Praisler-Wood BRICK MOLDER HAND.FURNACE STOCK INSPECTOR Work Phone: [facility] 02-21-2001 haemophilus influenz ae type b vaccine, conjugate unspecified formulation Shu Praisler-Wood BRICK MOLDER HAND.FURNACE STOCK INSPECTOR Work Phone: [facility] 02-21-2001 poliovirus vaccine, inactivated Shu Praisler-Wood BRICK MOLDER HAND.FURNACE STOCK INSPECTOR Work Phone: [facility] 09-06-2000 hepatitis B vaccine, pediatric or pediatric/adolescent dosage Shu Praisler-Wood BRICK MOLDER HAND.FURNACE STOCK INSPECTOR Work Phone: [facility] 09-06-2000 measles, mumps and rubella virus vaccine Shu Praisler-Wood BRICK MOLDER HAND.FURNACE STOCK INSPECTOR Work Phone: [facility] 02-16-2000 diphtheria, tetanus toxoids and acellular pertussis vaccine, unspecified formulation Shu Praisler-Wood BRICK MOLDER HAND.FURNACE STOCK INSPECTOR Work Phone: [facility] 02-16-2000 haemophilus influenz ae type b conjugate and Hepatitis B vaccine Shu Praisler-Wood BRICK MOLDER HAND.FURNACE STOCK INSPECTOR Work Phone: [facility] 1999 diphtheria, tetanus toxoids and acellular pertussis vaccine, unspecified formulation Shu Praisler-Wood BRICK MOLDER HAND.FURNACE STOCK INSPECTOR Work Phone: [facility] 1999 haemophilus influenz ae type b vaccine, conjugate unspecified formulation Shu Praisler-Wood BRICK MOLDER HAND.FURNACE STOCK INSPECTOR Work Phone: [facility] 1999 hepatitis B vaccine, pediatric or pediatric/adolescent dosage Shu Gomez APRN.FURNACE STOCK INSPECTOR Work Phone: [facility] 1999 poliovirus vaccine, inactivated Shuvictorino Gomez BRICK MOLDER HAND.FURNACE STOCK INSPECTOR Work Phone: [facility] 1999 diphtheria, tetanus toxoids and acellular pertussis vaccine, unspecified formulation Shu Gomez APRN.FURNACE STOCK INSPECTOR Work Phone: [facility] 1999 haemophilus influenz ae type b vaccine, conjugate unspecified formulation Shu Gomez APRN.FURNACE STOCK INSPECTOR Work Phone: [facility] 1999 poliovirus vaccine, inactivated Shuvictorino Gomez APRN.FURNACE STOCK INSPECTOR Work Phone: [facility] Payers Date Payer Category Payer Self-pay 2022 Medicaid [id number] 2022 Medicaid [id number] 2021 Medicaid [id number] 1999 Unknown [id number] [id number] 1999 Unknown [id number] [id number] Unknown [facility] [id number] Unknown [id number] [id number] [id number] Unknown [id number] [id number] [id number] Unknown [id number] 2.16.8 [id number] Unknown [id number] 2.16.8 [id number] Unknown [id number] 2.16.8 [id number] Social History Date Type Detail Facility Tobacco smoking stat us MAIS Tobacco smoking consumption unknown [facility] Start: 2000 Sex Assigned At Not on file [facility] Start: 05-01-2022 End: 10-07-2024 Tobacco smoking status MAIS Never smoked tobacco [facility] Start: 05-01-2022 Tobacco use and exposure Smokeless tobacco non-user [facility] Start: 05-01-2022 End: 03-02-2025 Alcohol intake Ex-drinker (finding) [facility] Start: 04-21-2022 End: 05-01-2022 Exposure to SARS-CoV-2 (event) Not sure [facility] Start: 03-23-2024 End: 08-03-2024 History of Social function [facility] Start: 03-23-2024 End: 08-03-2024 Tobacco use panel [facility] Adult Depression Screening Assessment 0 [facility] Start: 06-24-2024 [facility] The thought of julio hernandez myself has occurred to me Hardly ever [facility] Start: 2000 Sex Assigned At Female W [facility] Medical Equipment Procedure Code Equipment Code Equipment Origin al Text Equipment Identifier Dates Use as directed to check glucose levels up to seven times daily. [id number] Start: 09-18-2024 Use as directed to check glucose levels up to seven times daily. [id number] Start: 09-18-2024 Use to inject insulin up to 4 times per day. [id number] Start: 10-24-2024 Goals Date Patient Goal Desired Activity /State Personal health goal Clinical Notes 12-30-2020 to 03-04-2025 Telephone Encounter - Lalito Rocha, - 03/04/2025 1:58 PM EDTTelephone Encounter - Lalito Rocha, DO - 03/04/2025 1:58 PM Alfred Andre MD - 03/02/2025 12:36 PM EDTPatient Instructions Note Date & Type Note Facility 03-04-2025 Telephone encount er Note Reviewed BG data- responded as follows: Good afternoon- I reviewed your BG data- overall these numbers remain at goal for - continue your current regimen as you are doing for now: NPH 35 units at bedtime Humalog 5-10-10 units prior to meals respectively, + 8 units of Humalog with higher carb meals. will review again next week- thanks! VIKRAM [facility] 03-04-2025 Miscellaneous Notes Formattin g of this note might be different from the original. Reviewed BG data- responded as follows: Good afternoon- I reviewed your BG data- overall these numbers remain at goal for - continue your current regimen as you are doing for now: NPH 35 units at bedtime Humalog 5-10-10 units prior to meals respectively, + 8 units of Humalog with higher carb meals. will review again next week- thanks! VIKRAM documented in this encounter [facility] 03-02-2025 Note HNO ID: [id number] Author: ALFRED ARCOS MD Service: ? Author Type: Physician Type: Progress Notes Filed: 03/02/2025 12:38 Note Text: NST SUMMARY PROVIDER ASSESSMENT AND INTERPRETATION Val Ruiz is a 24 year old female, , who is at 37w6d with an DEEP of 03/17/2025, Date entered prior to episode creation dating method. Indications for NST: Diabetes - Insulin Controlled Baseline: 120 Variability: Moderate Accelerations: Present 15 X 15 Decelerations: Variable Contractions: TOCO: None Interpretation: Reactive SIGNATURE: Alfred Arcos MD [facility] 03-02-2025 History of Presen t illness Narrative NST SUMMARY PROVIDER ASSESSMENT AND INTERPRETATION Val Ruiz is a 24 year old female, , who is at 37w6d with an DEEP of 03/17/2025, Date entered prior to episode creation dating method. Indications for NST: Diabetes - Insulin Controlled Baseline: 120 Variability: Moderate Accelerations: Present 15 X 15 Decelerations: Variable Contractions: TOCO: None Interpretation: Reactive SIGNATURE: Alfred Arcos MD documented in this encounter [facility] 03-02-2025 Instructions Janina Flores MA - 03/02/2025 9:20 AM EDT SEQUENTIAL SCREENINGS The [facility] offers sequential screenings for women who [...] It will require an appointment with our diesel maintenance technician. This is not an ultrasound performed [...] the above symptoms, contact our office at [phone] and ask to speak with a nurse. After hours, you can call doctors registry at [phone] OR call [facility] at [phone] and ask to have the doctor oracle drm consultant paged. If you consider this an emergency, dial 9-1-1 or go to your nearest emergency department. NEED HELP? Are you dealing with a violent or abusive relationship? Are you a victim of rape or sexual assult? Call [facility] ([place]) 24 hour Crisis Hotline: 501.133.6711 or 470-843-0310. MANUAL Your Guide to a Healthy manual is now on-line. Visit [email or web address] to download your free copy documented in this encounter [facility] 03-01-2025 Telephone encount er Note Patient notified and voiced understanding. Patient states she will go to [place] L&D. L&D called and notified. Edel Rios RN [facility] 03-01-2025 Miscellaneous Notes Formattin g of this note might be different from the original. Patient notified and voiced understanding. Patient states she will go to [place] L[facility]. L&D called and notified. Edel Rios RN She can come back to [place] if she wants to go to [facility] b/c it is closer she can go there but if she is ruptured she would likely be delivered there. Patient called. States that [facility] around noon. Not ruptured. Shortly after getting home she put on a pad and continues to leak a small amount of fluid. Clear with no odor. Possibly a slight increase in her cramping, but not by much patient said. Asking if she should go back for evaluation as recommended at the hospital if she continued to leak. She asked if she should go to [place] for a swab to rule out rupture since they are closer. Advised they would keep her if she was ruptured. She does not want to deliver there. What do you recommend? Melissa Trimble, NAZ Noted 37w5d Patient called. States she began leaking fluid at 10am and continues to do so. Clear fluid per patient. No vaginal bleeding. No contractions. Mild cramping. Good FM. Patient is scheduled for a C/S on Saturday. Recommended patient go to L&D since she continues to leak. L&D notified. Updated H&P faxed. Patient will arrive in 40 minutes. Melissa Trimble RN documented in this encounter [facility] 03-01-2025 Telephone encount er Note She can come back to [place] if she wants to go to [facility] b/c it is closer she can go there but if she is ruptured she would likely be delivered there. [facility] 03-01-2025 Telephone encount er Note Patient called. States that she was [facility] around noon. Not ruptured. Shortly after getting home she put on a pad and continues to leak a small amount of fluid. Clear with no odor. Possibly a slight increase in her cramping, but not by much patient said. Asking if she should go back for evaluation as recommended at the hospital if she continued to leak. She asked if she should go to [place] for a swab to rule out rupture since they are closer. Advised they would keep her if she was ruptured. She does not want to deliver there. What do you recommend? Melissa Trimble RN [facility] 03-01-2025 History and physical note Note Date/Time March 01, 2025 1:36p m [facility] Medical Records Department [address] [place] [address] OB Triage Physician Note 03/01/25 1334 MR#: [id number] Acct: [id number] Name: VAL RUIZ Rep #:[id number] : 2000 24 From: Mayra Vincent MD PCP: Care Physician,No Primary Status :DEP CLI Y Location: [facility] HPI - General General Date of Service: 03/01/25 HPI Narrative VAL RUIZ, is a 24 F @ 37.5 weeks who presents c/o possible SROM PFSH PFSH Home Medications ?Medication ?Instructions ?Recorded ?Last Taken ?Type aspirin 81 mg tablet,delayed 81 mg PO DAILY 02/24/25 0 02/22/25 20:00 History release 81 mg citalopram 20 mg tablet 20 mg PO DAILY 02/24/25 06/0 11/17 20:00 History 20 mg albuterol sulfate 90 mcg/actuation 2 puff inhalation Q 4H PRN PRN 03/01/25 Unknown History aerosol inhaler asthma fluticasone propionate 50 2 spray intranasal DAILY 06/17 Unknown History mcg/actuation nasal spray,suspension Allergy/AdvReac Type Severity Reaction Status Date / Time cephalexin (From Keflex) Allergy Mild Rash Verified 03/01/25 11:27 Social History Smoking Status: Never smoker NST FHR Rate Baby A Baseline: 130s Variability:: Moderate Accelerations:: 15 x 15 Decelerations:: None NST Reactive:: Yes FHR Category:: Category I Uterine Activity:: irregular Assessment & Plan (1) History of delivery affecting : (2) 37 weeks gestation of : (3) Pre-existing diabetes mellitus affecting in third trimester, antepartum: (4) False labor: PLAN: Plan @ 37.5 weeks- r/o ROM, membranes intact, false labor 1) NST reactive cat 1- well being established 2) ROM plus was negative for rupture 3) scheduled CS on 03/05- return sooner if concerns 03/01/25 1336 <Electronically signed by Mayra Lucas MD> Date _ Mayra Cam MD Cosigner Signature (if applicable): Date CC: Dr Mayra Cam MD; No Primary Care Physician ~ Signed [facility] Work Phone: 1(680) 968-534306-09-2025 History and physical note [facility] Medical Records Department [address] [place] [address] OB Triage Physician Note 03/01/25 1334 MR#: [id number] Acct: [id number] Name: VAL RUIZ Rep #:[id number] : 2000 From: Mayra Vincent MD PCP: Care Physician,No Primary Status :DEP CLI Y Location: [facility] HPI - General General Date of Service: 03/01/25 HPI Narrative VAL RUIZ, is a 24 F @ 37.5 weeks who presents c/o possible SROM PFSH PFSH Home Medications ?Medication ?Instructions ?Recorded ?Last Taken ?Type aspirin 81 mg tablet,delayed 81 mg PO DAILY 02/24/25 0 02/22/25 20:00 History release 81 mg citalopram 20 mg tablet 20 mg PO DAILY 02/24/25 0611/17 20:00 History 20 mg albuterol sulfate 90 mcg/actuation 2 puff inhalation Q 4H PRN PRN 03/01/25 Unknown History aerosol inhaler asthma fluticasone propionate 50 2 spray intranasal DAILY 06/17 Unknown History mcg/actuation nasal spray,suspension Allergy/AdvReac Type Severity Reaction Status Date / Time cephalexin (From Keflex) Allergy Mild Rash Verified 03/01/25 11:27 Social History Smoking Status: Never smoker NST FHR Rate Baby A Baseline: 130s Variability:: Moderate Accelerations:: 15 x 15 Decelerations:: None NST Reactive:: Yes FHR Category:: Category I Uterine Activity:: irregular Assessment & Plan (1) History of delivery affecting : (2) 37 weeks gestation of : (3) Pre-existing diabetes mellitus affecting in third trimester, antepartum: (4) False labor: PLAN: Plan @ 37.5 weeks- r/o ROM, membranes intact, false labor 1) NST reactive cat 1- well being established 2) ROM plus was negative for rupture 3) scheduled CS on 03/05- return sooner if concerns 03/01/25 1336 Lance NICOLAS> Date _ Myara Cam MD Cosigner Signature (if applicable): Date CC: Dr Mayra Cam MD; No Primary Care Physician ~ Signed [facility]06-09-2025 Telephone encounter Note* Telephone Encounter - Mayra Frey MD - 03/01/2025 10:50 AM EDT Noted [facility]06-09-2025 Telephone encounter Note* Telephone Encounter - Melissa Trimble RN - 03/01/2025 10:18 AM EDT 37w5d Patient called. States she began leaking fluid at 10am and continues to do so. Clear fluid per patient. No vaginal bleeding. No contractions. Mild cramping. Good FM. Patient is scheduled for a C/S onFriday. Recommended patient go to L&D since she continues to leak. L&D notified. Updated H&P faxed. Patient will arrive in 40 minutes. Melissa Trimble, RN [facility]06-06-2025 NoteHNO ID: [id number] Author: WOODY BASS MD Service: ? Author Type: Physician Type: Progress Notes Filed: 02/26/2025 10:32 Note Text: NST SUMMARY PROVIDER ASSESSMENT AND INTERPRETATION Val Ruiz is a 24 year old female, , who is at 37w2d with an DEEP of 03/17/2025, Date entered prior to episode creation dating method. Indications for NST: Diabetes - Insulin Controlled Baseline: 130 Variability: Moderate Accelerations: Present 15 X 15 Decelerations: None Contractions: TOCO: None Interpretation: Reactive SIGNATURE: [facility] History of Present illness Narrative* Woody Bass MD - 02/26/2025 10:31 AM EDT NST SUMMARY PROVIDER ASSESSMENT AND INTERPRETATION Val Ruiz is a 24 year old female, , who is at 37w2d with an DEEP of 03/17/2025, Date entered prior to episode creation dating method. Indications for NST: Diabetes - Insulin Controlled Baseline: 130 Variability: Moderate Accelerations: Present 15 X 15 Decelerations: None Contractions: TOCO: None Interpretation: Reactive SIGNATURE: Woody Bass DO [facility] Progress note* Quick Notes - Woody Bass MD - 02/26/2025 10:30 AM EDT SW- no pain, vb, lof. Good FM PE: Gen- NAD, well appearing Abd- Gravid, NT See flowsheet A/p 37 wk gestation - Pre existing diabetes: Cont following with endo - NST reactive - MOD: Scheduled for repeat C/S next week - RTO 1 wk Woody Bass DO [facility]06-06-2025 Miscellaneous Notes* Quick Notes - Woody Bass MD - 02/26/2025 10:30 AM EDT SW- no pain, vb, lof. Good FM PE: Gen- NAD, well appearing Abd- Gravid, NT See flowsheet A/p 37 wk gestation - Pre existing diabetes: Cont following with endo - NST reactive - MOD: Scheduled for repeat C/S next week - RTO 1 wk Woody Bass DO [facility] Instructions* Patient Instructions* Irasema Navarro MA - 02/26/2025 9:15 AM EDT SEQUENTIAL SCREENINGS The [facility] offers sequential screenings for women who are interested in screenings for chromosomal abnormalities and certain defects during a . The sequential screen combinesultrasound and blood tests to determine the risk [...] this testing. It will require an appointment withour diesel maintenance technician. This is not an ultrasound performed [...] the above symptoms, contact our office at [phone] and ask to speak with anurse. After hours, you can call doctors registry at [phone] OR call [facility] at [phone] ask to have the doctor oracle drm consultant paged. If you consider this an emergency, dial 9-1-5 or go to your nearest emergency department. NEED HELP? Are you dealing with a violent or abusive relationship? Are you a victim of rape or sexual assult? Call [facility] ([place]) 24 hour Crisis Hotline: 667.168.8936 or 329-738-3324. MANUAL Your Guide to a Healthy manual is now on-line. Visit [email or web address] to download your free copy [facility] History and physical note [facility] Medical Records Department [address] [place] [address] OB Triage Physician Note 02/24/25 1740 MR#: [id number] Acct: [id number] Name: VAL RUIZ Rep #:[id number] : 2000 24 From: Kati Rolle CNM PCP: Care Physician,No Primary Status :REG CLI Y Location: [address] HPI - General HPI Narrative VAL RUIZ, is a 24 F at 37 weeks gestation here for cramping and contractions that started earlier this morning and have continued to increase. C/O headache with blurry vision at times. Positive movements. Denies any vaginal bleeding or loss of fluid. Patient is scheduled for repeat section. PFSH PFSH Home Medications ?Medication ?Instructions ?Recorded ?Last Taken ?Type aspirin 81 mg tablet,delayed 81 mg PO DAILY 02/24/25 0 02/22/25 20:00 History release 81 mg citalopram 20 mg tablet 20 mg PO DAILY 02/24/25 06/0 11/17 20:00 History 20 mg Allergy/AdvReac Type Severity Reaction Status Date / Time cephalexin (From Keflex) Allergy Mild Rash Verified 10/05/24 09:26 Social History Smoking Status: Never smoker NST FHR Rate Baby A Baseline: 135 Variability:: Moderate Accelerations:: 15 x 15 Decelerations:: None NST Reactive:: Yes FHR Category:: Category I Uterine Activity:: Irritability Assessment & Plan (1) 37 weeks gestation of : (2) Cramping affecting , antepartum: (3) History of delivery affecting : (4) Headache: PLAN: Plan BP 107/57 Start IV and give 1000 cc fluid bolus CE 0.5 cm/ thick/ posterior UA sent Cervical exam unchanged Headache resolved D/C home with follow up in office as scheduled Dr. Vincent aware of A&P 02/24/251956 ts CNM> Date _ Kati Shannantin JAYLABoo Cosigner Signature (if applicable): Date ____ CC: JAYLABoo Kati Rolle; No Primary Care Physician ~ Signed [facility]06-04-2025 History and physical note Author Kati Rolle [facility] Note Date/Time February 24, 2025 7:57p m [facility] Medical Records Department [address] [place] [address] OB Triage Physician Note 02/24/25 1740 MR#: [id number] Acct: [id number] Name: VAL RUIZ Rep #:[id number] : 2000 24 From: Kati Rolle CNM PCP: Care Physician,No Primary Status :REG CLI Y Location: [place] [address]1 HPI - General HPI Narrative VAL RUIZ, is a 24 F at 37 weeks gestation here for cramping and contractions that started earlier this morning and have continued to increase. C/O headache with blurry vision at times. Positive movements. Denies any vaginal bleeding or loss of fluid. Patient is scheduled for repeat section. PFSH PFS Home Medications ?Medication ?Instructions ?Recorded ?Last Taken ?Type aspirin 81 mg tablet,delayed 81 mg PO DAILY 02/24/25 0 02/22/25 20:00 History release 81 mg citalopram 20 mg tablet 20 mg PO DAILY 02/24/25 06/0 11/17 20:00 History 20 mg Allergy/AdvReac Type Severity Reaction Status Date / Time cephalexin (From Keflex) Allergy Mild Rash Verified 10/05/24 09:26 Social History Smoking Status: Never smoker NST FHR Rate Baby A Baseline: 135 Variability:: Moderate Accelerations:: 15 x 15 Decelerations:: None NST Reactive:: Yes FHR Category:: Category I Uterine Activity:: Irritability Assessment & Plan (1) 37 weeks gestation of : (2) Cramping affecting , antepartum: (3) History of delivery affecting : (4) Headache: PLAN: Plan BP 107/57 Start IV and give 1000 cc fluid bolus CE 0.5 cm/ thick/ posterior UA sent Cervical exam unchanged Headache resolved D/C home with follow up in office as scheduled Dr. Vincent aware of A&P 02/24/251956 <Electronically signed by Kati castle CNM> Date _ Kati Rolle CNM Cosigner Signature (if applicable): Date ____ CC: LINA Rolle; No Primary Care Physician ~ Signed [facility] Work Phone: 1(946) 946-265106-04-2025 Evaluation note* Diagnosis Onset Date Resolution Status Admit Date 37 weeks gestation of acut e February 24, 2025 4:23pm Cramping affecting , antepartum acute February 24, 2025 4 :23pm Headache acute February 24, 2025 4:23pm History of delivery affecting acute February 24 4:23pm [facility] Work Phone: 1(290) 350-732606-04-2025 Evaluation note* Diagnosis Onset Date Resolution Status Admit Date 37 weeks gestation of acut e February 24, 2025 4:23pm Cramping affecting , antepartum acute February 24, 2025 4 :23pm Headache acute February 24, 2025 4:23pm History of delivery affecting acute February 24 4:23pm 37 weeks gestation of acut e March 01, 2025 11:05am False labor acute March 01 11:05am History of delivery affecting acute March 01 11:05am Pre-existing diabetes mellit us affecting in third trimester, acute March 01, 2025 1 1:05am [facility] Work Phone: 1(206) 748-791106-04-2025 NoteHNO ID: [id number] Author: ?, ?, ? Service: ? Author Type: ? Type: Progress Notes Filed: 02/24/2025 16:11 Note Text: Left voicemail for patient to call [phone] to schedule post visit 05/03/2025 virtual ok. Sent patient my chart message to call [phone] to schedule post on 05/03/2025.[facility]06-04-2025 Telephone encounter Note* Telephone Encounter - Kati Rolle APRN.CNM - 02/24/2025 3:46 PM EDT Thank you for the update. Kati Rolle APRN.CNM [facility]06-04-2025 Miscellaneous Notes* Telephone Encounter - Kati Rolle APRN.CNM - 02/24/2025 3:46 PM EDT Thank you for the update. Kati Rolle APRN.CNM * Telephone Encounter - Tracey Godoy LPN - 02/24/2025 2:45 PM EDT Ob patient is 37w0d has c/s scheduled on 03/05/2025 and called c/o lower back pain and abdominal cramping and pressure that feels that began last night. Patient stated that the cramping and pain is painful and patient is not able to time the cramping. Denies LOF and VB. Patient stated that baby isactive. Patient is about 40 min from office and is going to go to [facility] for evaluation. documented [facility] Telephone encounter Note * Telephone Encounter - Tracey Godoy LPN - 02/24/2025 2:45 PM EDT Ob patient is 37w0d has c/s scheduled on 03/05/2025 and called c/o lower back pain and abdominal cramping and pressure that feels that began last night. Patient stated that the cramping and pain is painful and patient is not able to time the cramping. Denies LOF and VB. Patient stated that baby isactive. Patient is about 40 min from office and is going to go to [facility] for evaluation. [facility]06-02-2025 NoteHNO ID: [id number] Author: ?, ?, ? Service: ? Author Type: ? Type: Progress Notes Filed: 02/22/2025 14:15 Note Text: Left voicemail for patient to call [phone] to schedule post visit 05/03/2025 virtual ok.[facility]06-02-2025 History of Present illness Narrative* Jacinta Oscar - 02/22/2025 2:15 PM EDT Left voicemail for patient to call [phone] to schedule post visit 05/03/2025 virtual ok. * Lalito Rocha DO - 02/22/2025 11:00 AM EDT Reason for consultation: F/U- gestational diabetes mellitus Referring Physician: Melissa Aguilera MD My final recommendations will be communicated back to the requesting physician by way of shared Medical record or letter via US mail. This Team Access Model visit is a virtual encounter. It required patient- provider interaction for the medical decision making as documented below. I have communicated my name and active licensure. The patient's identity and physical location wereverified at the time of this visit. Either the patient or their legal self pay representative has been informed of the risks and benefits of -- and alternatives to -- treatment through a remote evaluation andconsents to proceed with the evaluation remotely. HISTORY OF PRESENT ILLNESS; Ms. Ruiz is a 24 year old F presenting at 36+ weeks gestation here for f/u regarding gestational diabetes mellitus. Last visit with me was 01/21/25. She was diagnosed with GDM after abnormal 1 hour GTT on 09/18 (BG 312 mg/dL). HbA1c at that time was 5.8%- suggestive of preexisting beta celldysfunction (but not necessarily overt diabetes). She has [...] daily- reports the following BG data today: [id number] mg/dL 2 hour post meal in general less than 120 mg/dL (occasional outlier) Hypoglycemia frequency: n/a Hypoglycemia awareness: n/a Hyperglycemia Symptoms: denies blurry vision reports polyuria denies polydipsia reports nocturia denies rapid weight loss Last visit with OB was 02/19- scheduled for March 05 at 38 weeks. She is delivering in [place]. Last u/s growth was 02/19- EFW 62nd [...] prior to meals + scale upto 55 units/day. 10 each 11 diphenhydrAMINE (UNISOM SLEEPMINIS) 25 mg capsule Take 1 capsule by mouth at bedtime as needed. 48 capsule 0 ferrous sulfate 325 mg (65 mg iron) tablet Take 1 tablet by mouth every other day. famotidine (PEPCID) 20 mg tablet Take 1 tablet by mouth two times a day. 60 tablet 5 Insulin Wanchese, Disposable, (PEN NEEDLE) 32 gauge x 5/32 [...] mg/dL, and 2 hour postprandial blood glucose c oncentration of less than 120 mg/dL. She was encouraged to limit carbohydrate intake, to walk aftermeals, (if not contraindicated) and will be scheduled with our dietitian, (if not done already). Regarding her blood glucose management, I recommend she do the followin) check your sugars fasting (60-90 mg/dL) and 2 hours post meal (less than 120 mg/dL) 2) forward me your blood glucose data weekly ( )- 3) adjust insulin slightly as follows: Increase NPH to 35 units at bedtime Continue Humalog 5-10-10 units prior to meals respectively, + 8 units of Humalog with higher carbmeals. 4) I would recommend monitoring BG x [...] which included preparing to see the patient, [id number] patient care, completing clinical documentation, obtaining and/or reviewing separately obtained history, performing a medically appropriate examination, counseling and educating the pat ient/family/caregiver, and ordering medications, tests, or procedures. Lalito Rocha DO documented in this encounterM[facility]06-[facility]25 NoteHNO ID: [id number] Author: LALITO ROCHA DO Service: ? Author [...] visit. Either the patient or their legal self pay representative has been informed of the risks [...] daily- reports the following BG data today: [id number] mg/dL 2 hour post meal in general less than 120 mg/dL (occasional outlier) Hypoglycemia frequency: n/a Hypoglycemia awareness: n/a Hyperglycemia Symptoms: denies blurry vision reports polyuria denies polydipsia reports nocturia denies rapid weight loss Last visit with OB was 02/19- scheduled for March 05 at 38 weeks. She is delivering in [place]. Last u/s growth was 02/19- EFW 62nd [...] times a day. 60 tablet 5 Insulin Wanchese, Disposable, (PEN NEEDLE) 32 gauge x 5/32 [...] Allergen Noted Reaction CEPHA (more content not included)...[facility]05-31-2025 Telephone encounter Note* Telephone Encounter - Lalito oRcha DO - 02/20/2025 7:45 AM EDT Reviewed BG data- responded as follows: Good morning- I reviewed your BG data- these numbers remain at goal for - continue your current regimen: NPH 32 units at bedtime Humalog 5-10-10 units prior to meals respectively, + 8 units of Humalog with higher carb meals. Will review again next week- thanks! KB [facility]05-31-2025 Miscellaneous Notes* Telephone Encounter - Lalito Rocha DO - 02/20/2025 7:45 AM EDT Reviewed BG data- responded as follows: Good morning- I reviewed your BG data- these numbers remain at goal for - continue your current regimen: NPH 32 units at bedtime Humalog 5-10-10 units prior to meals respectively, + 8 units of Humalog with higher carb meals. Will review again next week- thanks! KB documented in this encounterM[facility]05-30-[facility]25 Note Indication Evaluation of growth, Evaluation of [...] placenta is posterior, fundal. - BPP 8/8. - No malformations visualized on a limited [...] 9 oz EFW by: Hadlock (HC-AC-FL) Extended Automatic Pad Making Machine Operator 5.4 mm Extremities / Bony Struc FL [...] Trinh RDMS, RVT Read By: Kristine Raza M.D.MATERNAL [id number] Instructions * Patient Instructions* Yamila Azar MA - 02/19/2025 11:19 AM EDT SEQUENTIAL SCREENINGS The [facility] offers sequential screenings for women who are interested in screenings for chromosomal abnormalities and certain defects during a . The sequential screen combinesultrasound and blood tests to determine the risk [...] this testing. It will require an appointment withour diesel maintenance technician. This is not an ultrasound performed [...] the above symptoms, contact our office at [phone] and ask to speak with anurse. After hours, you can call doctors registry at [phone] OR call [facility] at [phone] ask to have the doctor oracle drm consultant paged. If you consider this an emergency, dial 2--8 or go to your nearest emergency department. NEED HELP? Are you dealing with a violent or abusive relationship? Are you a victim of rape or sexual assult? Call [facility] ([place]) 24 hour Crisis Hotline: 432.466.6898 or 324-575-7125. MANUAL Your Guide to a Healthy manual is now on-line. Visit [email or web address] to download your free copy documented in this encounterMorrow [facility] Hospital05-30-2025 History and physical note * Mayra Frey MD - 02/19/2025 11:05 AM EDT Pre-Op History and Physical HPI: The patient [...] prior to meals + scale upto 55 units/day. 10 each 11 diphenhydrAMINE (UNISOM SLEEPMINIS) 25 mg capsule Take 1 capsule by mouth at bedtime as needed. 48 capsule 0 ferrous sulfate 325 mg (65 mg iron) tablet Take 1 tablet by mouth every other day. famotidine (PEPCID) 20 mg tablet Take 1 tablet by mouth two times a day. 60 tablet 5 Insulin Wanchese, Disposable, (PEN NEEDLE) 32 gauge x 5/32 [...] history, medications and allergies Mayra Vincent MD [facility]05-30-2025 History and physical note* Mayra Frey MD - 02/19/2025 11:05 AM EDT Pre-Op History and Physical HPI: The patient [...] prior to meals + scale upto 55 units/day. 10 each 11 diphenhydrAMINE (UNISOM SLEEPMINIS) 25 mg capsule Take 1 capsule by mouth at bedtime as needed. 48 capsule 0 ferrous sulfate 325 mg (65 mg iron) tablet Take 1 tablet by mouth every other day. famotidine (PEPCID) 20 mg tablet Take 1 tablet by mouth two times a day. 60 tablet 5 Insulin Wanchese, Disposable, (PEN NEEDLE) 32 gauge x 5/32 [...] allergies Mayra Vincent MD documented in this encounterMorrow [facility] Hospital05-30-2025 Progress note* Quick Notes - Mayra Frey MD - 02/19/2025 10:59 AM EDT DM-Pt doing well. Denies vaginal Bleeding, Leaking fluid, or regular Contractions. Pt reports good movement. Physical Exam: Gen: female in no apparent distress Abd: soft, Gravid. Non tender to palpation. See flow sheet Participation of a fellow, resident, medical student, or advanced practice provider student in performing the sensitive examination was discussed with the patient or authorized self pay representative. The patient or authorized self pay representative has agreed to proceed with the [...] US pending today NST Mayra Cam MD [facility]05-30-2025 Miscellaneous Notes* Quick Notes - Mayra Frey MD - 02/19/2025 10:59 AM EDT DM-Pt doing well. Denies vaginal Bleeding, Leaking fluid, or regular Contractions. Pt reports good movement. Physical Exam: Gen: female in no apparent distress Abd: soft, Gravid. Non tender to palpation. See flow sheet Participation of a fellow, resident, medical student, or advanced practice provider student in performing the sensitive examination was discussed with the patient or authorized self pay representative. The patient or authorized self pay representative has agreed to proceed with the [...] NST Mayra Cam MD documented in this encounterMorrow [facility] Hospital05-22-2025 NoteHNO ID: [id number] Author: MELISSA AGUILERA MD Service: ? Author Type: Physician Type: Progress Notes Filed: 02/11/2025 20:28 Note Text: NST SUMMARY PROVIDER ASSESSMENT AND INTERPRETATION Indications for NST: Diabetes - Insulin Controlled Baseline: 140 Variability: Moderate Accelerations: Present 15 X 15 Decelerations: None Interpretation: Reactive SIGNATURE: Melissa Aguilera, [facility]05-22-2025 NoteHNO ID: [id number] Author: MELISSA AGUILERA MD Service: ? Author [...] given her Rhophylac pocket card. Lisa Thompson RNChildren'S [facility]05-19-2025 Note Indication Evaluation of well-being Diabetes mellitus, [...] Trinh RDMS, RVT Read By: Ly Nugent M.D.MATERNAL [id number] NoteHNO ID: [id number] Author: GEE CARLIN MD Service: ? Author [...] TOCO: None Interpretation: Reactive SIGNATURE: Gee Carlin [facility]05-15-2025 History of Present illness Narrative* Gee Carlin MD - 02/04/2025 2:23 PM EDT NST SUMMARY PROVIDER ASSESSMENT AND INTERPRETATION Val Ruiz is a 24 year old female, , who is at 34w1d with an DEEP of 03/17/2025, Date entered prior to episode creation dating method. Indications for NST: Diabetes - Insulin Controlled Baseline: 140 Variability: Moderate Accelerations: Present 15 X 15 Decelerations: None Contractions: TOCO: None Interpretation: Reactive SIGNATURE: Gee Carlin MD documented in this encounterMorrow [facility] Hospital05-15-2025 Progress note* Quick Notes - Gee Carlin MD - 02/04/2025 2:19 PM EDT RR- VB No. LOF No. CTXS No. Movement: present. Other c/o: mild persistent frontal FERNANDEZ, pressure. No epigastric pain but occas RUQ pain w/ certain movement. Medication list reviewed. SENSITIVE EXAM: Sensitive exam not performed. Physical Exam See Flow Sheet Abd: soft, nontender, gravid Ext: edema: 1+, symetrical: Yes, DTRS: negative, clonus: Absent A/P 34w1d Estimated Date of Delivery: 03/17/25 Assessment & Plan Supervision of high risk in third trimester ([facility]) Orders: URINE OB DIP B/O PROTEIN / CREATININE RATIO; Future COMPLETE BLOOD COUNT; Future COMPREHENSIVE METABOLIC PANEL; Future Previous section plans repeat, has scheduled Orders: URINE OB DIP B/O PROTEIN / CREATININE RATIO; Future COMPLETE BLOOD COUNT; Future COMPREHENSIVE METABOLIC PANEL; Future Pre-existing diabetes mellitus in in third trimester ([facility]) Reports BS to endocrine, reports good control Orders: URINE OB DIP B/O PROTEIN / CREATININE RATIO; Future COMPLETE BLOOD COUNT; Future COMPREHENSIVE METABOLIC PANEL; Future 34 weeks gestation of ([facility]) Orders: URINE OB DIP B/O PROTEIN / CREATININE RATIO; Future COMPLETE BLOOD COUNT; Future COMPREHENSIVE METABOLIC PANEL; Future Headache in , antepartum, third trimester ([facility]) check labs, d/w her symptomatic measures, trial of reglan Orders: PROTEIN / CREATININE RATIO; Future COMPLETE BLOOD COUNT; Future COMPREHENSIVE METABOLIC PANEL; Future NST reactive, next growth scan as scheduled. check preeclampsia labs to be thorough, return for signs/symptoms of severe preeclampsia Gee Carlin M.D. [facility]05-15-2025 Miscellaneous Notes* Quick Notes - Gee Carlin MD - 02/04/2025 2:19 PM EDT RR- VB No. LOF No. CTXS No. Movement: present. Other c/o: mild persistent frontal FERNANDEZ, pressure. No epigastric pain but occas RUQ pain w/ certain movement. Medication list reviewed. SENSITIVE EXAM: Sensitive exam not performed. Physical Exam See Flow Sheet Abd: soft, nontender, gravid Ext: edema: 1+, symetrical: Yes, DTRS: negative, clonus: Absent A/P 34w1d Estimated Date of Delivery: 03/17/25 Assessment & Plan Supervision of high risk in third trimester ([facility]) Orders: URINE OB DIP B/O PROTEIN / CREATININE RATIO; Future COMPLETE BLOOD COUNT; Future COMPREHENSIVE METABOLIC PANEL; Future Previous section plans repeat, has scheduled Orders: URINE OB DIP B/O PROTEIN / CREATININE RATIO; Future COMPLETE BLOOD COUNT; Future COMPREHENSIVE METABOLIC PANEL; Future Pre-existing diabetes mellitus in in third trimester ([facility]) Reports BS to endocrine, reports good control Orders: URINE OB DIP B/O PROTEIN / CREATININE RATIO; Future COMPLETE BLOOD COUNT; Future COMPREHENSIVE METABOLIC PANEL; Future 34 weeks gestation of ([facility]) Orders: URINE OB DIP B/O PROTEIN / CREATININE RATIO; Future COMPLETE BLOOD COUNT; Future COMPREHENSIVE METABOLIC PANEL; Future Headache in , antepartum, third trimester ([facility]) check labs, d/w her symptomatic measures, trial of reglan Orders: PROTEIN / CREATININE RATIO; Future COMPLETE BLOOD COUNT; Future COMPREHENSIVE METABOLIC PANEL; Future NST reactive, next growth scan as scheduled. check preeclampsia labs to be thorough, return for signs/symptoms of severe preeclampsia Gee Carlin M.D. documented in this encounterMorrow [facility] Hospital05-15-2025 Instructions* Patient Instructions* Janice Pina MA - 02/04/2025 1:55 PM EDT SEQUENTIAL SCREENINGS The [facility] offers sequential screenings for women who are interested in screenings for chromosomal abnormalities and certain defects during a . The sequential screen combinesultrasound and blood tests to determine the risk [...] this testing. It will require an appointment withour diesel maintenance technician. This is not an ultrasound performed [...] the above symptoms, contact our office at [phone] and ask to speak with anurse. After hours, you can call doctors registry at [phone] OR call [facility] at [phone] ask to have the doctor oracle drm consultant paged. If you consider this an emergency, dial 9-1-9 or go to your nearest emergency department. NEED HELP? Are you dealing with a violent or abusive relationship? Are you a victim of rape or sexual assult? Call [facility] ([place]) 24 hour Crisis Hotline: 550.273.5612 or 762-879-3779. MANUAL Your Guide to a Healthy manual is now on-line. Visit [email or web address] to download your free copy documented in this encounterMorrow [facility] Hospital05-13-2025 Telephone encounter Note * Telephone Encounter - Lalito Rocha DO - 02/02/2025 4:19 PM EDT Reviewed BG data- responded as follows: Good afternoon- I reviewed your BG data- these numbers remain at goal for - continue your current regimen: NPH 28 units at bedtime Humalog 5-10-10 units prior to meals respectively, + 8 units of Humalog with higher carb meals. Will review again next week- thanks! KB [facility]05-13-2025 Miscellaneous Notes* Telephone Encounter - Lalito Rocha DO - 02/02/2025 4:19 PM EDT Reviewed BG data- responded as follows: Good afternoon- I reviewed your BG data- these numbers remain at goal for - continue your current regimen: NPH 28 units at bedtime Humalog 5-10-10 units prior to meals respectively, + 8 units of Humalog with higher carb meals. Will review again next week- thanks! KB documented in this encounterMorrow [facility] Hospital05-12-2025 Note Indication Evaluation of well-being Diabetes mellitus, [...] Amniotic fluid volume 04/30 Biophysical profile score Anatomy sex: male. Performed By: Edel Trinh RDMS, RVT Read By: Ly Nugent M.D.MATERNAL [id number] NoteHNO ID: [id number] Author: ALFRED ARCOS MD Service: ? Author [...] TOCO: None Interpretation: Reactive SIGNATURE: Alfred Arcos [facility]05-08-2025 History of Present illness Narrative* Alfred Arcos MD - 01/28/2025 2:45 PM EDT NST SUMMARY PROVIDER ASSESSMENT AND INTERPRETATION Val Ruiz is a 24 year old female, , who is at 33w1d with an DEEP of 03/17/2025, Date entered prior to episode creation dating method. Indications for NST: Diabetes - Insulin Controlled Baseline: 125 Variability: Moderate Accelerations: Present 15 X 15 Decelerations: Variable Contractions: TOCO: None Interpretation: Reactive SIGNATURE: Alfred Arcos MD documented in this encounterMorrow County Hospital05-08-2025 Instructions* Patient Instructions* Yamila Azar MA - 01/28/2025 2:19 PM EDT SEQUENTIAL SCREENINGS The [facility] offers sequential screenings for women who are interested in screenings for chromosomal abnormalities and certain defects during a . The sequential screen combinesultrasound and blood tests to determine the risk [...] this testing. It will require an appointment withour diesel maintenance technician. This is not an ultrasound performed [...] the above symptoms, contact our office at [phone] and ask to speak with anurse. After hours, you can call [facility] at [phone] OR call [facility] at [phone] ask to have the doctor oracle drm consultant paged. If you consider this an emergency, dial 2-5-6 or go to your nearest emergency department. NEED HELP? Are you dealing with a violent or abusive relationship? Are you a victim of rape or sexual assult? Call [facility] ([facility] 24 hour Crisis Hotline: 249.469.7473 or 651-015-1785. MANUAL Your Guide to a Healthy manual is now on-line. Visit [email or web address] to download your free copy documented in this encounterMorrow County Hospital05-07-2025 Telephone encounter Note * Telephone Encounter - Lalito Rocha DO - 01/27/2025 8:05 PM EDT Reviewed BG data- responded as follows: Good afternoon- I reviewed your BG data- the majority of these values remain at goal for -continue your current regimen as you are doing: NPH 28 units at bedtime Humalog 5-10-10 units prior to meals respectively, + 8 units of Humalog with higher carb meals. Will review again next week- thanks! KB [facility]05-07-2025 Miscellaneous Notes* Telephone Encounter - Lalito Rocha DO - 01/27/2025 8:05 PM EDT Reviewed BG data- responded as follows: Good afternoon- I reviewed your BG data- the majority of these values remain at goal for -continue your current regimen as you are doing: NPH 28 units at bedtime Humalog 5-10-10 units prior to meals respectively, + 8 units of Humalog with higher carb meals. Will review again next week- thanks! KB documented in this encounterMorrow County Hospital05-06-2025 Note Indication Evaluation of well-being Diabetes mellitus, [...] movements 2: tone 2: Amniotic fluid volume /8 Biophysical profile score Anatomy sex: male. Performed By: Edel Trinh RDMS, RVT Read By: Ly Nugent M.D.MATERNAL [id number] Note Indication Evaluation of growth, Evaluation of well-being Diabetes mellitus, Maternal obesity, BMI >30 Impression - Single, live, intrauterine . - The biometry is consistent with the assigned gestational dating. - The EFW is 1998 g, at the 48%. AC is at [...] 58% 291.9 75% 59.3 23% 1998 48% Biometry Standard BPD 80.8 mm 32w 3d 47% Hadlock OFD 108.0 mm 32w 2d 59% Nicolaides HC 302.2 mm 32w 5d 58% Norma AC 291.9 mm 33w 1d 75% Hadlock Femur 59.3 mm 30w 6d 23% Noram EFW 1,998 g 32w 1d 48% Hadlock [...] Trinh RDMS, RVT Read By: Ly Nugent M.D.MATERNAL [id number] NoteHNO ID: [id number] Author: ALFRED ARCOS MD Service: ? Author [...] TOCO: None Interpretation: Reactive SIGNATURE: Alfred Arcos [facility]05-02-2025 History of Present illness Narrative* Alfred Arcos MD - 01/22/2025 3:25 PM EDT NST SUMMARY PROVIDER ASSESSMENT AND INTERPRETATION Val Ruiz is a 24 year old female, , who is at 32w2d with an DEEP of 03/17/2025, Date entered prior to episode creation dating method. Indications for NST: Diabetes - Insulin Controlled & BPP 6/ Baseline: 125 Variability: Moderate Accelerations: Present 15 X 15 Decelerations: None Contractions: TOCO: None Interpretation: Reactive SIGNATURE: Alfred Arcos MD documented in this encounterMorrow County Hospital05-02-2025 Evaluation + Plan note* Assessment & Plan Note - Alfred Arcos MD - 01/22/2025 3:16 PM EDTAssociated Problem(s): Pre-existing diabetes mellitus in in second trimester ([facility]) Managed by endo. 2 times week testing ordered. Orders: URINE OB DIP B/O NON-STRESS TEST; Standing OBSTETRIC ULTRASOUND WHI; Standing [facility]05-02-2025 Miscellaneous Notes* Assessment & Plan Note - Alfred Arcos MD - 01/22/2025 3:16 PM EDTAssociated Problem(s): Pre-existing diabetes mellitus in in second trimester ([facility]) Managed by endo. 2 times week testing ordered. Orders: URINE OB DIP B/O NON-STRESS TEST; Standing OBSTETRIC ULTRASOUND WHI; Standing * Quick Notes - Alfred Arcos MD - 01/22/2025 2:56 PM EDT KJ - S: Val denies LOF, contractions or vaginal bleeding. O: 32w2d, see flow sheet SENSITIVE EXAM: Sensitive exam not performed. A/P: Assessment & Plan 32 weeks gestation of ([facility]) Orders: URINE OB DIP B/O Pre-existing diabetes mellitus in in second trimester ([facility]) Managed by endo. 2 times week testing ordered. Orders: URINE OB DIP B/O NON-STRESS TEST; Standing OBSTETRIC ULTRASOUND WHI; Standing Previous section Repeat scheduled. Orders: URINE OB DIP B/O Anemia complicating , third trimester (HCC) S/p IV iron Orders: URINE OB DIP B/O Reviewed PTL & FM precautions Alfred Arcos MD documented [facility] Progress note* Quick Notes - Alfred Arcos MD - 01/22/2025 2:56 PM EDT KJ - S: Val denies LOF, contractions or vaginal bleeding. O: 32w2d, see flow sheet SENSITIVE EXAM: Sensitive exam not performed. A/P: Assessment & Plan 32 weeks gestation of (HCC) Orders: URINE OB DIP B/O Pre-existing diabetes mellitus in in second trimester ([facility]) Managed by endo. 2 times week testing ordered. Orders: URINE OB DIP B/O NON-STRESS TEST; Standing OBSTETRIC ULTRASOUND WHI; Standing Previous section Repeat scheduled. Orders: URINE OB DIP B/O Anemia complicating , third trimester ([facility]) S/p IV iron Orders: URINE OB DIP B/O Reviewed PTL & FM precautions Alfred Arcos MD [facility]05-02-2025 Instructions* Patient Instructions* Irasema Navarro MA - 01/22/2025 2:36 PM EDT SEQUENTIAL SCREENINGS The [facility] offers sequential screenings for women who are interested in screenings for chromosomal abnormalities and certain defects during a . The sequential screen combinesultrasound and blood tests to determine the risk [...] this testing. It will require an appointment withour diesel maintenance technician. This is not an ultrasound performed [...] the above symptoms, contact our office at [phone] and ask to speak with anurse. After hours, you can call doctors registry at [phone] OR call [facility] at [phone] ask to have the doctor oracle drm consultant paged. If you consider this an emergency, dial 05-24- or go to your nearest emergency department. NEED HELP? Are you dealing with a violent or abusive relationship? Are you a victim of rape or sexual assult? Call [facility] ([place]) 24 hour Crisis Hotline: 308.929.4344 or 937-475-0433. MANUAL Your Guide to a Healthy manual is now on-line. Visit [email or web address] to download your free copy documented in this encounterM[facility]05-[facility]25 NoteHNO ID: [id number] Author: ?, ?, ? Service: ? Author Type: ? Type: Progress Notes Filed: 01/21/2025 09:29 Note Text: Spoke with patient , scheduled 02/22/2025 @ 11:00 am (virtual appointment) [facility]05-01-2025 History of Present illness Narrative* Jacinta Oscar - 01/21/2025 9:20 AM EDT Spoke with patient , scheduled 02/22/2025 @ 11:00 am (virtual appointment) * Lalito Rocha DO - 01/21/2025 8:40 AM EDT Reason for consultation: F/U- gestational diabetes mellitus Referring Physician: Melissa Aguilera MD My final recommendations will be communicated back to the requesting physician by way of shared Medical record or letter via US mail. This Team Access Model visit is a virtual encounter. It required patient- provider interaction for the medical decision making as documented below. I have communicated my name and active licensure. The patient's identity and physical location wereverified at the time of this visit. Either the patient or their legal self pay representative has been informed of the risks and benefits of -- and alternatives to -- treatment through a remote evaluation andconsents to proceed with the evaluation remotely. HISTORY [...] prior to meals + scale upto 55 units/day. 10 Each 11 ferrous sulfate 325 mg (65 mg iron) tablet Take 1 tablet by mouth every other day. famotidine (PEPCID) 20 mg tablet Take 1 tablet by mouth two times a day. 60 tablet 5 Insulin Wanchese, Disposable, (PEN NEEDLE) 32 gauge x 5/32 [...] mg/dL, and 2 hour postprandial blood glucose c oncentration of less than 120 mg/dL. She was encouraged to limit carbohydrate intake, to walk aftermeals, (if not contraindicated) and will be scheduled with our dietitian, (if not done already). Regarding her blood glucose management, I recommend she do the followin) check your sugars fasting (60-90 mg/dL) and 2 hours post meal (less than 120 mg/dL) 2) forward me your blood glucose data weekly ([email or web address])- 3) for now - continue your current [...] which included preparing to see the patient, [id number] patient care, completing clinical documentation, obtaining and/or reviewing separately obtained history, performing a medically appropriate examination, counseling and educating the pat ient/family/caregiver, and ordering medications, tests, or procedures. Lalito Rocha DO documented in this encounterM[facility]05-[facility]25 NoteHNO ID: [id number] Author: LALITO ROCHA DO Service: ? Author [...] visit. Either the patient or their legal self pay representative has been informed of the risks [...] times a day. 60 tablet 5 Insulin Wanchese, Disposable, (PEN NEEDLE) 32 gauge x 5/32 [...] fever and no chills (more content not included)...[facility]04-29-2025 Telephone encounter Note* Telephone Encounter - Lalito Rocha DO - 01/19/2025 7:24 AM EDT Reviewed BG data- responded as follows: Good morning- I reviewed your BG data- these numbers remain at goal and look good overall. Continueyour current regimen: NPH 28 units at bedtime, Humalog 5 units with breakfast, 10 units with lunch and 10 units with dinner (+ 8 units with higher carb meals)- arleth with * as you are doing if/when you take the extra insulin. Will review again next week- thanks! VIKRAM [facility]04-29-[facility] Miscellaneous Notes* Telephone Encounter - Lalito Rocha DO - 01/19/2025 7:24 AM EDT Reviewed BG data- responded as follows: Good morning- I reviewed your BG data- these numbers remain at goal and look good overall. Continueyour current regimen: NPH 28 units at bedtime, Humalog 5 units with breakfast, 10 units with lunch and 10 units with dinner (+ 8 units with higher carb meals)- arleth with * as you are doing if/when you take the extra insulin. Will review again next week- thanks! VIKRAM documented in this encounterM[facility] Hospital04-22-2025 Telephone encounter Note * Telephone Encounter - Lalito Rocha DO - 01/12/2025 7:34 AM EDT Reviewed BG data- responded as follows; Good [...] review again next week- thanks! Dr Rocha [facility]04-22-2025 Miscellaneous Notes* Telephone Encounter - Lalito Rocha DO - 01/12/2025 7:34 AM EDT Reviewed BG data- responded as follows; Good [...] week- thanks! Dr Rocha documented in this encounterM[facility]04-18-2025 Telephone encounter Note * Telephone Encounter - Melissa Chavez RN - 01/08/2025 10:47 AM EDT 3rd risk assessment form submitted 01/08/2025. Melissa Chavez RN [facility]04-18-2025 Miscellaneous Notes* Telephone Encounter - Melissa Chavez RN - 01/08/2025 10:47 AM EDT 3rd risk assessment form submitted 01/08/2025. Melissa Chavez RN documented in this encounterMorrow [facility] Hospital04-17-2025 Progress note* Quick Notes - Alfred Arcos MD - 01/07/2025 2:15 PM EDT KJ - S: Val denies LOF, contractions or vaginal bleeding. O: 30w1d, see flow sheet SENSITIVE EXAM: Sensitive exam not performed. A/P: Assessment & Plan 30 weeks gestation of (HCC) Previous section Repeat scheduled Need for vaccination Tdap today Pre-existing diabetes mellitus in in second trimester (HCC) Well controlled on insulin. Follows with endo. Maternal iron deficiency anemia complicating , third trimester ([facility]) Needs to schedule IV iron. Reviewed PTL & FM precautions Alfred Arcos MD [facility]04-17-2025 Miscellaneous Notes* Quick Notes - Alfred Arcos MD - 01/07/2025 2:15 PM EDT KJ - S: Val denies LOF, contractions or vaginal bleeding. O: 30w1d, see flow sheet SENSITIVE EXAM: Sensitive exam not performed. A/P: Assessment & Plan 30 weeks gestation of (HCC) Previous section Repeat scheduled Need for vaccination Tdap today Pre-existing diabetes mellitus in in second trimester (HCC) Well controlled on insulin. Follows with endo. Maternal iron deficiency anemia complicating , third trimester ([facility]) Needs to schedule IV iron. Reviewed PTL & FM precautions Alfred Arcos MD documented in this encounterM[facility] Hospital04-17-2025 NoteHNO ID: [id number] Author: IRASEMA NAVARRO MA Service: ? Author Type: Rocket Assembly Operator Type: Progress Notes Filed: 01/07/2025 15:05 Note Text: Patient identified by name and date of . Val Albert Sara presents today for a vaccination of Tdap. Patient denies an allergy to latex: yes Patient denies a severe (life-threatening) allergy to a previous dose of Tdap, DTP, DTaP, DT or Td vaccine. Yes Patient denies history of epilepsy or neurological problems: Yes Patient is afebrile and denies being moderately or severely ill: Yes Patient denies history of Guillain-Dayton Syndrome (a severe paralytic illness): Yes Tdap Adacel injection was given without incident. See immunizations for details of immunizations administered today. VIS sheet provided: Yes Provider Alfred Arcos MD was present in office at time of injection. Irasema Navarro [facility]04-17-2025 History of Present illness Narrative* Irasema Navarro MA - 01/07/2025 2:10 PM EDT Patient identified by name and date of . Val Bety Ruiz presents today for a vaccination of Tdap. Patient denies an allergy to latex: yes Patient denies a severe (life-threatening) allergy to a previous dose of Tdap, DTP, DTaP, DT or Td vaccine. Yes Patient denies history of epilepsy or neurological problems: Yes Patient is afebrile and denies being moderately or severely ill: Yes Patient denies history of Guillain-Dayton Syndrome (a severe paralytic illness): Yes Tdap Adacel injection was given without incident. See immunizations for details of immunizations administered today. VIS sheet provided: Yes Provider Alfred Arcos MD was present in office at time of injection. Irasema Navarro MA documented in this encounterM[facility] Hospital04-17-2025 Instructions* Patient Instructions* Irasema Navarro MA - 01/07/2025 2:10 PM EDT SEQUENTIAL SCREENINGS The [facility] offers sequential screenings for women who are interested in screenings for chromosomal abnormalities and certain defects during a . The sequential screen combinesultrasound and blood tests to determine the risk [...] this testing. It will require an appointment withour diesel maintenance technician. This is not an ultrasound performed [...] the above symptoms, contact our office at [phone] and ask to speak with anurse. After hours, you can call doctors registry at [phone] OR call [facility] at [phone] ask to have the doctor oracle drm consultant paged. If you consider this an emergency, dial 7-1-0 or go to your nearest emergency department. NEED HELP? Are you dealing with a violent or abusive relationship? Are you a victim of rape or sexual assult? Call [facility] ([place]) 24 hour Crisis Hotline: 841.697.6109 or 291-478-9198. MANUAL Your Guide to a Healthy manual is now on-line. Visit [email or web address] to download your free copy documented in this encounterM[facility] Hospital04-15-2025 Telephone encounter Note * Telephone Encounter - Lalito Rocha DO - 01/05/2025 2:41 PM EDT Reviewed BG data- responded as follows: Good [...] Will review again next week- thanks! KB [facility]04-15-2025 Miscellaneous Notes* Telephone Encounter - Lalito Rocha DO - 01/05/2025 2:41 PM EDT Reviewed BG data- responded as follows: Good [...] next week- thanks! KB documented in this encounterMorrow [facility] Hospital04-09-2025 NoteHNO ID: [id number] Author: THOM DEAN RN Service: ? Author Type: Registered Nurse [...] by mouth two times a day. Insulin Wanchese, Disposable, (PEN NEEDLE) 32 gauge x 532 [...] a provider for review and evaluation for treatment.[facility]04-09[facility] History of Present illness Narrative* Thom Dean RN - 12/30/2024 11:45 AM EDT Patient referred to Blood Management for evaluation and treatment of pre- surgical anemia and/or iron deficiency. Non-surgical: anemia in [...] prior to meals + scale upto 55 units/day. ferrous sulfate 325 mg (65 mg iron) tablet Take 1 tablet by mouth every other day. famotidine (PEPCID) 20 mg tablet Take 1 tablet by mouth two times a day. Insulin Wanchese, Disposable, (PEN NEEDLE) 32 gauge x 5/32 [...] and evaluation for treatment. documented in this encounterM[facility] Hospital04-07-2025 Telephone encounter Note * Telephone Encounter - Lalito Rocha DO - 12/28/2024 4:01 PM EDT Reviewed BG data- responded as follows: Good [...] Will review again next week- thanks! KB [facility]04-07-2025 Miscellaneous Notes* Telephone Encounter - Lalito Rocha DO - 12/28/2024 4:01 PM EDT Reviewed BG data- responded as follows: Good [...] next week- thanks! KB documented in this encounterM[facility] Hospital04-04-2025 Note Indication Evaluation of growth Diabetes mellitus, [...] 10 oz EFW by: Hadlock (HC-AC-FL) Extended Automatic Pad Making Machine Operator 7.4 mm Extremities / Bony Struc FL [...] Trinh RDMS, RVT Read By: Ly Nugent M.D.MATERNAL [id number] Progress note* Quick Notes - Alfred Arcos MD - 12/25/2024 10:54 AM EDT KJ - S: Val denies LOF, contractions or vaginal bleeding. She reports having trouble sleeping. Patient wants to try unisom. She reports good glucose control. O: 28w2d, see flow sheet SENSITIVE EXAM: Sensitive exam not performed. A/P: Assessment & Plan Pre-existing diabetes mellitus in in second trimester (HCC) Managed by & on insulin. Orders: URINE OB DIP B/O Previous delivery affecting , antepartum ([facility]) Scheduled repeat Orders: URINE OB DIP B/O Supervision of high risk in third trimester ([facility]) Orders: URINE OB DIP B/O 28wk labs today. Plans Tdap NEXT visit. Insomnia - unisom sent and sleep habits reviewed. Reviewed PTL & FM precautions. Alfred Arcos MD [facility]04-04-2025 Miscellaneous Notes* Quick Notes - Alfred Arcos MD - 12/25/2024 10:54 AM EDT KJ - S: Val denies LOF, contractions or vaginal bleeding. She reports having trouble sleeping. Patient wants to try unisom. She reports good glucose control. O: 28w2d, see flow sheet SENSITIVE EXAM: Sensitive exam not performed. A/P: Assessment & Plan Pre-existing diabetes mellitus in in second trimester ([facility]) Managed by & on insulin. Orders: URINE OB DIP B/O Previous delivery affecting , antepartum ([facility]) Scheduled repeat Orders: URINE OB DIP B/O Supervision of high risk in third trimester ([facility]) Orders: URINE OB DIP B/O 28wk labs today. Plans Tdap NEXT visit. Insomnia - unisom sent and sleep habits reviewed. Reviewed PTL & FM precautions. Alfred Arcos MD documented in this encounterM[facility] Hospital04-04-2025 Instructions* Patient Instructions* Janice Pina MA - 12/25/2024 10:20 AM EDT SEQUENTIAL SCREENINGS The [facility] offers sequential screenings for women who are interested in screenings for chromosomal abnormalities and certain defects during a . The sequential screen combinesultrasound and blood tests to determine the risk [...] this testing. It will require an appointment withour diesel maintenance technician. This is not an ultrasound performed [...] the above symptoms, contact our office at [phone] and ask to speak with anurse. After hours, you can call doctors registry at [phone] OR call [facility] at [phone] ask to have the doctor oracle drm consultant paged. If you consider this an emergency, dial 9-1- or go to your nearest emergency department. NEED HELP? Are you dealing with a violent or abusive relationship? Are you a victim of rape or sexual assult? Call [facility] ([place]) 24 hour Crisis Hotline: 883.232.9176 or 276-350-8379. MANUAL Your Guide to a Healthy manual is now on-line. Visit [email or web address] to download your free copy documented in this encounterMorrow [facility] Hospital03-30-2025 Telephone encounter Note * Telephone Encounter - Lalito Rocha DO - 12/20/2024 7:16 PM EDT Reviewed BG data- responded as follows: Good afternoon- I reviewed your BG data- the majority of these values remain at goal for -continue your current regimen: NPH 25 units at bedtime Humalog 5 units with breakfast, 10 units with lunch and 10 units with dinner (+ 8 units with highercarb meals)- will review again next week- thanks! KB [facility]03-30-2025 Miscellaneous Notes* Telephone Encounter - Lalito Rocha, - 12/20/2024 7:16 PM EDT Reviewed BG data- responded as follows: Good afternoon- I reviewed your BG data- the majority of these values remain at goal for -continue your current regimen: NPH 25 units at bedtime Humalog 5 units with breakfast, 10 units with lunch and 10 units with dinner (+ 8 units with highercarb meals)- will review again next week- thanks! KB documented in this encounterMorrow [facility] Hospital03-25-2025 Telephone encounter Note * Telephone Encounter - Lalito oRcha DO - 12/15/2024 4:51 PM EDT Reviewed BG data- responded as follows: Good afternoon- I reviewed your BG data- these numbers are at/near goal. I would recommend that youcontinue NPH 25 units at bedtime. Continue Humalog 5 units prior to breakfast, increase to 10 unitsprior to lunch and 10 units prior to dinner + additional 8 units of Humalog with higher carb meals (arleth with * as you are doing). Will review again next week- thanks! VIKRAM [facility]03-25-2025 Miscellaneous Notes* Telephone Encounter - Lalito Rocha DO - 12/15/2024 4:51 PM EDT Reviewed BG data- responded as follows: Good afternoon- I reviewed your BG data- these numbers are at/near goal. I would recommend that youcontinue NPH 25 units at bedtime. Continue Humalog 5 units prior to breakfast, increase to 10 unitsprior to lunch and 10 units prior to dinner + additional 8 units of Humalog with higher carb meals (arleth with * as you are doing). Will review again next week- thanks! VIKRAM documented in this encounterMorrow [facility] Hospital03-18-2025 Telephone encounter Note * Telephone Encounter - Elena Parker RN - 12/08/2024 4:42 PM EDT Order signed and faxed. Elena Parker RN [facility]03-18-2025 Miscellaneous Notes* Telephone Encounter - Elena Parker RN - 12/08/2024 4:42 PM EDT Order signed and faxed. Elena Parker RN * Telephone Encounter - Elena Parker RN - 12/07/2024 8:45 AM EDT Breast pump order received from [facility]. To KJ to sign. Elena Parker RN documented in this encounterMorrow County Hospital03-18-2025 NoteHNO ID: [id number] Author: ?, ?, ? Service: ? Author Type: ? Type: Progress Notes Filed: 12/08/2024 15:29 Note Text: Spoke with patient, scheduled 01/21/2025 @ 8:40 am (virtual appointment)[facility]03-17-2025 NoteHNO ID: [id number] Author: ?, ?, ? Service: ? Author Type: ? Type: Progress Notes Filed: 12/07/2024 10:14 Note Text: Left voicemail for patient to call [phone] to schedule 6 week virtual follow up with Dr. Rocha.[facility]03-17-2025 History of Present illness Narrative* Jacinta Oscar - 12/07/2024 10:14 AM EDT Left voicemail for patient to call [phone] to schedule 6 week virtual follow up with Dr. Rocha. * Lalito Rocha, DO - 12/07/2024 8:40 AM EDT Reason for consultation: F/U- gestational diabetes mellitus Referring Physician: Melissa Aguilera MD My final recommendations will be communicated back to the requesting physician by way of shared Medical record or letter via [place] mail. This Team Access Model visit is a virtual encounter. It required patient- provider interaction for the medical decision making as documented below. I have communicated my name and active licensure. The patient's identity and physical location wereverified at the time of this visit. Either the patient or their legal self pay representative has been informed of the risks and benefits of -- and alternatives to -- treatment through a remote evaluation andconsents to proceed with the evaluation remotely. HISTORY [...] meals + scale. 5 Each 11 Insulin Wanchese, Disposable, (PEN NEEDLE) 32 gauge x 5/32 [...] mg/dL, and 2 hour postprandial blood glucose c oncentration of less than 120 mg/dL. She was encouraged to limit carbohydrate intake, to walk aftermeals, (if not contraindicated) and will be scheduled with our dietitian, (if not done already). Regarding her blood glucose management, I recommend she do the followin) check your sugars fasting (60-90 mg/dL) and 2 hours post meal (less than 120 mg/dL) 2) forward me your blood glucose data weekly ([email or web address])- 3) adjust insulin slightly as follows: NPH 25 units at bedtime Humalog 5-8-8 units prior to meals respectively, + additional 8 units of Humalog with higher carbmeals (arleth with * as you are doing) [...] which included preparing to see the patient, [id number] patient care, completing clinical documentation, obtaining and/or reviewing separately obtained history, performing a medically appropriate examination, counseling and educating the pat ient/family/caregiver, and ordering medications, tests, or procedures. Lalito Rocha DO documented in this encounterMorrow County Hospital03-17-2025 Telephone encounter Note * Telephone Encounter - Elena Parker RN - 12/07/2024 8:45 AM EDT Breast pump order received from [facility]. To KJ to sign. Elena Parker RN [facility]03-17-2025 NoteHNO ID: [id number] Author: LALITO ROCHA DO Service: ? Author [...] visit. Either the patient or their legal self pay representative has been informed of the risks [...] meals + scale. 5 Each 11 Insulin Wanchese, Disposable, (PEN NEEDLE) 32 gauge x 5/32 [...] or dry skin Eyes: (more content not included)...[facility]03-13-2025 Note Indication Evaluation of growth Diabetes mellitus, [...] 8 oz EFW by: Hadlock (HC-AC-FL) Extended Automatic Pad Making Machine Operator 7.6 mm Extremities / Bony Struc FL [...] Trinh RDMS, RVT Read By: Ly Nugent M.D.MATERNAL [id number] Progress note* Quick Notes - Alfred Arcos MD - 12/03/2024 1:48 PM EDT KJ - S: Val denies LOF, contractions [...] URINE OB DIP B/O Alfred Arcos MD [facility]03-13-2025 Miscellaneous Notes* Quick Notes - Alfred Arcos MD - 12/03/2024 1:48 PM EDT KJ - S: Val denies LOF, contractions [...] B/O Alfred Arcos MD documented in this encounterMorrow [facility] Hospital03-13-2025 Instructions* Patient Instructions* Yamila Azar MA - 12/03/2024 1:04 PM EDT SEQUENTIAL SCREENINGS The [facility] offers sequential screenings for women who are interested in screenings for chromosomal abnormalities and certain defects during a . The sequential screen combinesultrasound and blood tests to determine the risk [...] this testing. It will require an appointment withour diesel maintenance technician. This is not an ultrasound performed [...] the above symptoms, contact our office at [phone] and ask to speak with anurse. After hours, you can call doctors registry at [phone] OR call [facility] at [phone] ask to have the doctor oracle drm consultant paged. If you consider this an emergency, dial 9--2 or go to your nearest emergency department. NEED HELP? Are you dealing with a violent or abusive relationship? Are you a victim of rape or sexual assult? Call [facility] ([place]) 24 hour Crisis Hotline: 951.727.5093 or 934-744-5278. MANUAL Your Guide to a Healthy manual is now on-line. Visit [email or web address] to download your free copy documented in this encounterMorrow [facility] Hospital03-10-2025 Telephone encounter Note * Telephone Encounter - Lalito Rocha DO - 11/30/2024 3:11 PM EDT Reviewed BG data- responded as follows; Good [...] Will review again next week- thanks! KB [facility]03-10-2025 Miscellaneous Notes* Telephone Encounter - Lalito Rocha DO - 11/30/2024 3:11 PM EDT Reviewed BG data- responded as follows; Good [...] next week- thanks! VIKRAM documented [facility] Telephone encounter Note * Telephone Encounter - Lalito Rocha DO - 11/22/2024 3:48 PM EST Reviewed BG data- responded as follows: Ok [...] Will review again next week- thanks! VIKRAM [facility]03-02-2025 Miscellaneous Notes* Telephone Encounter - Lalito Rocha DO - 11/22/2024 3:48 PM EST Reviewed BG data- responded as follows: Ok [...] next week- thanks! VIKRAM documented in [facility]02-[facility] Telephone encounter Note * Telephone Encounter - Lalito Rocha DO - 11/15/2024 7:47 AM EST Reviewed BG data- responded as follows: Good morning- I reviewed your BG data/ message below- these numbers look good overall (some ups/downs but majority are at goal)- continue NPH 25 units at bedtime, Humalog 5 units prior to breakfast, Humalog 8 units prior to lunch and 8 units prior to dinner (+ additional 5 units of Humalog with anyhigher carb meals as you are doing ( arleth with * if/when you take the extra insulin so I can see if it is working or not). Will review again next week- thanks! KB [facility]02-23-2025 Miscellaneous Notes* Telephone Encounter - Lalito Rocha DO - 11/15/2024 7:47 AM EST Reviewed BG data- responded as follows: Good morning- I reviewed your BG data/ message below- these numbers look good overall (some ups/downs but majority are at goal)- continue NPH 25 units at bedtime, Humalog 5 units prior to breakfast, Humalog 8 units prior to lunch and 8 units prior to dinner (+ additional 5 units of Humalog with anyhigher carb meals as you are doing ( arleth with * if/when you take the extra insulin so I can see if it is working or not). Will review again next week- thanks! KB documented in this encounterM[facility]02-18-2025 NoteHNO ID: [id number] Author: EDIE MAYER MD Service: ? Author Type: Physician Type: Progress Notes Filed: 11/11/2024 11:12 Note Text: Dr. Melissa Aguilera NAME: Val Ruiz CLINIC Number.: [id number] Date of : 2000 Date of Visit: [...] which included preparing to see the patient, [id number] patient care, completing clinical documentation, obtaining and/or reviewing separately obtained history, performing a medically appropriate examination, counseling and educating the patient/family/caregiver, ordering medications, tests, or procedures, communicating with other HCPs (not separately reported), independently interpreting results (not separately reported), and communicating results to the patient/family/caregiver. Sincerely, Dr. Edie Garciamanuel [facility]02-18-2025 History of Present illness Narrative* Edie Mayer MD - 11/10/2024 1:[address] Melissa Aguilera NAME: Val Ruiz CLINIC Number.: [id number] Date of : 2000 Date of Visit: [...] One right and one left pulmonary vein wereseen returning normally into the left atrium. The [...] discussed these findings with Ms. Val Ruiz. Inaddition, the limitations of the echocardiogram and echocardiography [...] prior notes and imaging including from referring maternalfetal medicine specialists, devoted time to counseling/coordination of [...] which included preparing to see the patient, [id number] patient care, completing clinical documentation, obtaining and/or reviewing separately obtained history, performing a medically appropriate examination, counseling and educating the pat ient/family/caregiver, ordering medications, tests, or procedures, communicating with other HCPs (not separately reported), independently interpreting results (not separately reported), and communicating results to the patient/family/caregiver. Sincerely, Dr. Edie Mayer documented in this encounterM[facility] Hospital02-18-2025 Telephone encounter Note * Telephone Encounter - Lalito Rocha, - 11/10/2024 9:20 AM EST Reviewed BG data- responded as follows: Good [...] review again next week- thanks! Dr Rocha [facility]02-18-2025 Miscellaneous Notes* Telephone Encounter - Lalito Rocha DO - 11/10/2024 9:20 AM EST Reviewed BG data- responded as follows: Good [...] week- thanks! Dr Rocha documented in this encounterM[facility] Hospital02-17-2025 Telephone encounter Note * Telephone Encounter - Melissa Chavez RN - 11/09/2024 8:43 AM EST 2nd risk assessment form submitted 11/09/2024. Melissa Chavez RN [facility]02-17-2025 Miscellaneous Notes* Telephone Encounter - Melissa Chavez RN - 11/09/2024 8:43 AM EST 2nd risk assessment form submitted 11/09/2024. Melissa Chavez RN documented in this encounterMorrow [facility] Hospital02-14-2025 Progress note* Quick Notes - Alfred Arcos MD - 11/06/2024 11:45 AM EST KJ - VB No. LOF No. CTXS No. Movement: present. Other c/o: No. Medication list reviewed. Physical Exam See Flow Sheet Gen: no accute distress, well appearing A/P 21w2d Estimated Date of Delivery: 03/17/25 Anatomy US today DM - continue insulin. Follows with . MOD - plans repeat . Alfred Arcos MD [facility]02-14-2025 Miscellaneous Notes* Quick Notes - Alfred Arcos MD - 11/06/2024 11:45 AM EST KJ - VB No. LOF No. CTXS No. Movement: present. Other c/o: No. Medication list reviewed. Physical Exam See Flow Sheet Gen: no accute distress, well appearing A/P 21w2d Estimated Date of Delivery: 03/17/25 Anatomy US today DM - continue insulin. Follows with . MOD - plans repeat . Alfred Arcos MD documented in this encounterM[facility] Hospital02-14-2025 Instructions* Patient Instructions* Yamila Azar MA - 11/06/2024 10:40 AM EST SEQUENTIAL SCREENINGS [facility] offers sequential screenings for women who are interested in screenings for chromosomal abnormalities and certain defects during a . The sequential screen combinesultrasound and blood tests to determine the risk [...] this testing. It will require an appointment withour diesel maintenance technician. This is not an ultrasound performed [...] the above symptoms, contact our office at [phone] and ask to speak with anurse. After hours, you can call doctors registry at [phone] OR call [facility] at [phone] ask to have the doctor oracle drm consultant paged. If you consider this an emergency, dial 9-2-9 or go to your nearest emergency department. NEED HELP? Are you dealing with a violent or abusive relationship? Are you a victim of rape or sexual assult? Call [facility] ([place]) 24 hour Crisis Hotline: 760.145.3217 or 604-860-7257. MANUAL Your Guide to a Healthy manual is now on-line. Visit [email or web address] to download your free copy documented in this encounterM[facility] Hospital02-09-2025 Telephone encounter Note * Telephone Encounter - Lalito Rocha DO - 11/01/2024 9:58 AM EST Reviewed BG data- responded as follows: Good morning- I reviewed your BG data- are you doing ok with the insulin so far? Assuming so- I would recommend that you do the following: increase NPH to 22 units at bedtime continue Humalog 5 units prior to breakfast, increase Humalog to 8 units prior to lunch and 8 unitsprior to dinner. I would recommend that you [...] Will review again next week- thanks! KB [facility]02-09-2025 Miscellaneous Notes* Telephone Encounter - Lalito Rocha DO - 11/01/2024 9:58 AM EST Reviewed BG data- responded as follows: Good morning- I reviewed your BG data- are you doing ok with the insulin so far? Assuming so- I would recommend that you do the following: increase NPH to 22 units at bedtime continue Humalog 5 units prior to breakfast, increase Humalog to 8 units prior to lunch and 8 unitsprior to dinner. I would recommend that you [...] next week- thanks! KB documented in this encounterM[facility] Hospital02-05-2025 NoteHNO ID: [id number] Author: ?, ?, ? Service: ? Author Type: ? Type: Progress Notes Filed: 10/28/2024 09:38 Note Text: Left voicemail for patient to call [phone] to schedule 6 week virtual follow up with Dr. Rocha. Sent patient my chart message to call [phone] to schedule 6 week follow up virtual appointment with Dr. Rocha.[facility]02-04-2025 NoteHNO ID: [id number] Author: ?, ?, ? Service: ? Author Type: ? Type: Progress Notes Filed: 10/27/2024 11:59 Note Text: Left voicemail for patient to call [phone] to schedule 6 week virtual follow up with Dr. Rocha.[facility]02-03-2025 NoteHNO ID: [id number] Author: ?, ?, ? Service: ? Author Type: ? Type: Progress Notes Filed: 10/26/2024 12:28 Note Text: Left voicemail for patient to call [phone] to schedule 6 week virtual follow up with Dr. Rocha.[facility]02-01-2025 History of Present illness Narrative* Lalito Rocha, DO - 10/24/2024 2:20 PM EST Reason for consultation: Evaluation of gestational diabetes mellitus Referring Physician: Melissa Aguilera MD My final recommendations will be communicated back to the requesting physician by way of shared Medical record or letter via US mail. This Team Access Model visit is a virtual encounter. It required patient- provider interaction for the medical decision making as documented below. I have communicated my name and active licensure. The patient's identity and physical location wereverified at the time of this visit. Either the patient or their legal self pay representative has been informed of the risks and benefits of -- and alternatives to -- treatment through a remote evaluation andconsents to proceed with the evaluation remotely. HISTORY [...] mg/dL, and 2 hour postprandial blood glucose c oncentration of less than 120 mg/dL. She was encouraged to limit carbohydrate intake, to walk aftermeals, (if not contraindicated) and will be scheduled with our dietitian, (if not done already). Regarding her blood glucose management, I recommend she do the followin) check your sugars fasting (60-90 mg/dL) and 2 hours post meal (less than 120 mg/dL) 2) forward me your blood glucose data weekly ([email or web address])- send by the end of this coming [...] which included preparing to see the patient, [id number]-[id number] patient care, completing clinical documentation, obtaining and/or reviewing separately obtained history, performing a medically appropriate examination, counseling and educating the pat ient/family/caregiver, and ordering medications, tests, or procedures. Lalito Rocha DO documented in this encounterM[facility] Hospital02-01-2025 NoteHNO ID: [id number] Author: LALITO ROCHA DO Service: ? Author [...] visit. Either the patient or their legal self pay representative has been informed of the risks [...] turgor normal. N (more content not included)... [facility]01-28-2025 Telephone encounter Note* Telephone Encounter - Jacinta Oscar - 10/20/2024 2:08 PM EST Patient referred by Dr. Aguilera for GDM, patient had been scheduled with Dr. Alonzo , patient didnot realize that was the wrong physician. Rescheduled to see Dr. Rocha 10/24/2024 @ 2:20 pm. Patient has been logging BG , patient had been logging at 1 hour post meal, advised patient to makesure she noted on logs when it was one hour and then when she started testing 2 hour post meal. Patient sent logs and Dr. Rocha email. [facility]01-28-20[facility] Miscellaneous Notes* Telephone Encounter - Jacinta Oscar - 10/20/2024 2:08 PM EST Patient referred by Dr. Aguilera for GDM, patient had been scheduled with Dr. Alonzo , patient didnot realize that was the wrong physician. Rescheduled to see Dr. Rocha 10/24/2024 @ 2:20 pm. Patient has been logging BG , patient had been logging at 1 hour post meal, advised patient to makesure she noted on logs when it was one hour and then when she started testing 2 hour post meal. Patient sent logs and Dr. Rocha email. documented in this encounterM[facility] Hospital01-28-2025 NoteHNO ID: [id number] Author: ARLETH GILLESPIE PA-C Service: ? Author Type: Physician Stove Fitter Type: Progress Notes Filed: 10/20/2024 09:35 Note Text: This note was created using Goojitsuriter. Sly Ruiz is a 24 year old female. [...] ICD10: J01.90 - AMOXICILLIN 875 MG TABLET DEBBI [facility]01-28-2025 History of Present illness Narrative* Arleth Gillespie PA-C - 10/20/2024 9:33 AM EST This note was created using Goojitsuriter. Subjective Val Ruiz is a 24 year old female. Patient is a 24-year-old female who complains of worsening congestion, sinus pressure, ear fullnessand sore throat that she has been experiencing [...] was provided with a prescription for amoxicillin 875mg and supportive care instructions were discussed. Patient verbalizes good understanding of same. CLINICAL IMPRESSION: Acute Sinusitis ASSESSMENT/PLAN: 1. Acute non-recurrent sinusitis, unspecified location - ICD9: 461.9, ICD10: J01.90 - AMOXICILLIN 875 MG TABLET Arleth Gillespie PA-C documented in this encounterM[facility] Hospital01-23-2025 Telephone encounter Note * Telephone Encounter - Jacinta Oscar - 10/15/2024 1:18 PM EST Patient returned call to the office after [...] logs with instructions to email weekly to [email or web address] Patient advised that she signed a CARMENZA for her records to be sent to [facility]. First available appointment is 10/29/2024 Please advise for scheduling. Thank you [facility]01-23-2025 Miscellaneous Notes* Telephone Encounter - Jacinta Oscar - 10/15/2024 1:18 PM EST Patient returned call to the office after [...] logs with instructions to email weekly to [email or web address] Patient advised that she signed a CARMENZA for her records to be sent to [facility]. First available appointment is 10/29/2024 Please advise for scheduling. Thank you documented in this encounterM[facility] Hospital01-21-2025 Telephone encounter Note * Telephone Encounter - Jacinta Oscar - 10/13/2024 10:06 AM EST Left voicemail for patient to call [phone] (direct line) to Dr. Rocha's office to schedule with Dr. Rocha. [facility]01-21-2025 Miscellaneous Notes* Telephone Encounter - Jacinta Oscar - 10/13/2024 10:06 AM EST Left voicemail for patient to call [phone] (direct line) to Dr. Rocha's office to schedule with Dr. Rocha. documented in this encounterMorrow [facility] Hospital01-20-2025 Telephone encounter Note * Telephone Encounter - Jacinta Oscar - 10/12/2024 11:14 AM EST Left voicemail for patient to call [phone] to schedule appointment with Dr[address] Rocha. [facility]01-20-2025 Miscellaneous Notes* Telephone Encounter - Jacinta Oscar - 10/12/2024 11:14 AM EST Left voicemail for patient to call [phone] to schedule appointment [address] Rocha. documented in this encounterMorrow [facility] Hospital01-17-2025 Note* Addendum Note - Melissa Aguilera MD - 10/09/2024 5:10 PM ESTAddended by: MELISSA AGUILERA on: 10/09/2024 05:10 PM Modules accepted: Orders [facility]01-17-2025 Miscellaneous Notes* Addendum Note - Melissa Aguilera MD - 10/09/2024 5:10 PM ESTAddended by: MELISSA AGUILERA on: 10/09/2024 05:10 PM Modules accepted: Orders * Quick Notes - Melissa Aguilera MD - 10/09/2024 2:47 PM EST S: Val Ruiz is a 24 year [...] did not have a PCP. Discussed endocrinology referralfor insulin management. Encouraged follow up testing after [...] ENDOCRINOLOGY Melissa Aguilera MD documented in this encounterMorrow [facility] Hospital01-17-2025 Progress note* Result Encounter Note - Gee Carlin MD - 10/09/2024 3:54 PM EST Anatomy ultrasound reviewed. No abnormalities identified. Follow up as clinically indicated. Pleaseplace copy in ob chart. Gee Carlin MD [facility] Work Phone: [phone]) 903-638401-17-2025 Miscellaneous Notes* Result Encounter Note - Gee Carlin MD - 10/09/2024 3:54 PM EST Anatomy ultrasound reviewed. No abnormalities identified. Follow up as clinically indicated. Pleaseplace copy in ob chart. Gee Carlin MD documented in this encounterM[facility] Hospital01-17-2025 Progress note* Quick Notes - Melissa Aguilera MD - 10/09/2024 2:47 PM EST S: Val Ruiz is a 24 year [...] did not have a PCP. Discussed endocrinology referralfor insulin management. Encouraged follow up testing after [...] - CONSULT TO ENDOCRINOLOGY Melissa Aguilera MD [facility]01-17-2025 Instructions* Patient Instructions* Janina Flores MA - 10/09/2024 1:43 PM EST SEQUENTIAL SCREENINGS The [facility] offers sequential screenings for women who are interested in screenings for chromosomal abnormalities and certain defects during a . The sequential screen combinesultrasound and blood tests to determine the risk [...] this testing. It will require an appointment withour diesel maintenance technician. This is not an ultrasound performed [...] the above symptoms, contact our office at [phone] and ask to speak with anurse. After hours, you can call [employer] registry at [phone] OR call [facility] at [phone] ask to have the doctor oracle drm consultant paged. If you consider this an emergency, dial 9-1-1 or go to your nearest emergency department. NEED HELP? Are you dealing with a violent or abusive relationship? Are you a victim of rape or sexual assult? Call [facility] ([place]) 24 hour Crisis Hotline: 224.752.6954 or 825-047-7722. MANUAL Your Guide to a Healthy manual is now on-line. Visit [email or web address] to download your free copy documented in this encounterMorrow [facility] Hospital12-31-2024 NoteHNO ID: [id number] Author: JANICE COLE RN Service: ? Author Type: Registered Nurse Type: Progress Notes Filed: 09/22/2024 13:24 Note Text: DIABETES CARE AND EDUCATION VISIT Location: [place] Type of visit: In person individual PATIENT'S [...] Ruiz DATE: September 22, 2024 TIME: 12:45 [facility]12-31-2024 History of Present illness Narrative* Janice Cole RN - 09/22/2024 12:45 PM EST DIABETES CARE AND EDUCATION VISIT Location: [place] Type of visit: In person individual PATIENT'S [...] 2024 TIME: 12:45 PM documented in this encounterMorrow County Hospital12-27-2024 Telephone encounter Note * Telephone Encounter - Edel Rios RN - 09/18/2024 2:30 PM EST Patient notified of results, verbalizes understanding of instructions. Patient transferred to [facility] to make appointments. Edel Rios RN [facility]12-27-2024 Miscellaneous Notes* Telephone Encounter - Edel Rios RN - 09/18/2024 2:30 PM EST Patient notified of results, verbalizes understanding of instructions. Patient transferred to [facility] to make appointments. Edel Rios RN * Telephone Encounter - Elba Khanna APRN.JASE - 09/18/2024 2:05 PM EST Please notify patient: Early 1 hour >200, consistent with GDM. Supplies ordered. Nutrition consult and diabetes consult placed. Growth ultrasounds every 4 weeks at 28 weeks ordered. Patient to bring glucose logs to next appointment. Elba Khanna APRN.JASE documented in this encounterMorrow County Hospital12-27-2024 Telephone encounter Note * Telephone Encounter - Elba Khanna APRN.CNP - 09/18/2024 2:05 PM EST Please notify patient: Early 1 hour >200, consistent with GDM. Supplies ordered. Nutrition consult and diabetes consult placed. Growth ultrasounds every 4 weeks at 28 weeks ordered. Patient to bring glucose logs to next appointment. Elba Khanna APRN.JASE [facility]12-26-2024 Telephone encounter Note* Telephone Encounter - Lisa Thompson RN - 09/17/2024 4:14 PM EST Pt notified of all details below. Transferred Pt to [facility] to get appointments scheduled. Pt denies questions/concerns. Lisa Thompson RN [facility]12-26-2024 Miscellaneous Notes* Telephone Encounter - Lisa Thompson RN - 09/17/2024 4:14 PM EST Pt notified of all details below. Transferred Pt to [facility] to get appointments scheduled. Pt denies questions/concerns. Lisa Thompson RN * Telephone Encounter - Lisa Thompson RN - 09/15/2024 9:58 AM EST ----- Message from Kati Rolle APRN.CNM sent at 09/15/2024 9:46 AM EST ----- Reviewed. Needs anatomy US at 16 & 20 weeks. Kati Rolle APRN.CNM * Telephone Encounter - Lisa Thompson RN - 09/15/2024 9:51 AM EST Left message for patient to call office to notify of below information as well as her anemia reflexresults-Mychart message was sent to Pt by provider. Lisa Thompson RN * Telephone Encounter - Lisa Thompson RN - 09/15/2024 9:50 AM EST ----- Message from Kati Rolle APRN.CNM sent at 09/15/2024 9:40 AM EST ----- Hemoglobin A1C is elevated. It is recommended she complete an early 1 hour GCT test. Order placed. Please notify patient and assist with scheduling. Kati Rolle APRN.CNM documented in this encounterMorrow County Hospital12-24-2024 Telephone encounter Note * Telephone Encounter - Lisa Thompson RN - 09/15/2024 9:58 AM EST ----- Message from Kati Rolle APRN.CNM sent at 09/15/2024 9:46 AM EST ----- Reviewed. Needs anatomy US at 16 & 20 weeks. Kati Rolle APRN.CNM [facility]12-24-2024 Telephone encounter Note* Telephone Encounter - Lisa Thompson RN - 09/15/2024 9:51 AM EST Left message for patient to call office to notify of below information as well as her anemia reflexresults-Mychart message was sent to Pt by provider. Lisa Thompson RN [facility]12-24-2024 Telephone encounter Note* Telephone Encounter - Lisa Thompson RN - 09/15/2024 9:50 AM EST ----- Message from Kati Rolle APRN.CNM sent at 09/15/2024 9:40 AM EST ----- Hemoglobin A1C is elevated. It is recommended she complete an early 1 hour GCT test. Order placed. Please notify patient and assist with scheduling. Kati Rolle APRN.CNM [facility]12-20-2024 Progress note* Quick Notes - Melissa Aguilera MD - 09/11/2024 12:00 PM EST S: Val Ruiz is a 24 year [...] about c/s vs TOLAC. Previous delivery at [facility]. Induction for GDM. Does not feel she [...] ICD10: Z34.82 - OBSTETRIC ULTRASOUND WHI - [id number] PLUS Melissa Aguilera MD [facility]12-20-2024 Miscellaneous Notes* Quick Notes - Melissa Aguilera MD - 09/11/2024 12:00 PM EST S: Val Ruiz is a 24 year [...] about c/s vs TOLAC. Previous delivery at [facility]. Induction for GDM. Does not feel she [...] ICD10: Z34.82 - OBSTETRIC ULTRASOUND WHI - [id number] PLUS Melissa Aguilera MD documented in this encounterMorrow County Hospital12-20-2024 Instructions* Patient Instructions* Johanne Chapa LPN - 09/11/2024 11:03 AM EST SEQUENTIAL SCREENINGS The [facility] offers sequential screenings for women who are interested in screenings for chromosomal abnormalities and certain defects during a . The sequential screen combinesultrasound and blood tests to determine the risk [...] this testing. It will require an appointment withour diesel maintenance technician. This is not an ultrasound performed [...] the above symptoms, contact our office at [phone] and ask to speak with anurse. After hours, you can call doctors registry at [phone] OR call [facility] at [phone] ask to have the doctor oracle drm consultant paged. If you consider this an emergency, dial 91- or go to your nearest emergency department. NEED HELP? Are you dealing with a violent or abusive relationship? Are you a victim of rape or sexual assult? Call [facility] ([place]) 24 hour Crisis Hotline: 100.551.8060 or 467-034-5446. MANUAL Your Guide to a Healthy manual is now on-line. Visit [email or web address] to download your free copy documented in this encounterMorrow County Hospital11-23-2024 NoteHNO ID: [id number] Author: JUNE CORONEL APRN.FURNACE STOCK INSPECTOR Service: ? Author Type: Nurse Practitioner Type: [...] UNIT-TRIMETHOPRIM 1 MG/ML EYE DROPS June Coronel APRN.[facility]-23-[facility] History of Present illness Narrative* June Coronel APRN.JASE - 08/15/2024 2:18 PM EST This note was created using NoteWriter. Subjective [...] UNIT-TRIMETHOPRIM 1 MG/ML EYE DROPS June Coronel APRN.FURNACE STOCK INSPECTOR documented in this encounterMorrow County Hospital11-18-2024 History of Present illness Narrative* Stephanie Khoury RT(R) - 08/10/2024 12:50 PM EST Radiology Service Progress Note PATIENT NAME: Val Ruiz DATE OF SERVICE: August 10, 2024 TIME: 12:46 PM PATIENT IDENTITY VERIFICATION COMPLETED USING TWO (2) IDENTIFIERS: Name and Date of confirmedby patient verbally. FALL SCREENING: Has the patient had 2 falls in the last year or 1 fall with injury or currently using an Ambulatory Assistive Device (Walker, Cane, Wheelchair, Crutches, etc.)? No PATIENT GENDER DATA: Female. status: : Yes. Internal Quality Check OK. status: NO. PATIENT RELEVANT IMPLANT DATA REVIEWED: Yes PATIENT PRESENTS WITH AN IMPLANTABLE OR ATTACHED FLARE MAKER: No RADIOLOGY DEPARTMENT: General X-ray: Exam(s) Completed: Chest X-Ray PERIPHERAL IV DATA: Not applicable SIGNED BY: RT Roshni(Vin) August 10, 2024 12:46 PM documented in this encounterM[facility]11-18-2024 NoteHNO ID: [id number] Author: STEPHANIE KHOURY RT(R) Service: ? Author Type: Raw Mill Operator Type: Progress Notes Filed: 08/10/2024 12:47 Note [...] PATIENT PRESENTS WITH AN IMPLANTABLE OR ATTACHED FLARE MAKER: No RADIOLOGY DEPARTMENT: General X-ray: Exam(s) Completed: Chest X-Ray PERIPHERAL IV DATA: Not applicable SIGNED BY: RT Roshni(Vin) August 10, 2024 12:46 [facility]11-18-2024 NoteHNO ID: [id number] Author: YONG MEDEROS APRN.FURNACE STOCK INSPECTOR Service: ? Author Type: Nurse Practitioner Type: [...] abnormality. Dictated by : MD Yong DOZIER APRN.[facility]11-18-2024 History of Present illness Narrative* Yong Mederos APRN.FURNACE STOCK INSPECTOR - 08/10/2024 12:29 PM EST Subjective HPI HPI Val Ruiz is a [...] LGA TONSILLECTOMY & ADENOIDECTOMY <AGE 11 2007 ALLERGIES Cephalexin MEDICATIONS aspirin, enteric coated [...] resp. rate 21, weight 78.4 kg (172 lb13.5 oz), last menstrual period 06/10/2024, SpO2 96%. [...] abnormality. Dictated by : MD Yong DOZIER APRN.FURNACE STOCK INSPECTOR documented in this encounterMorrow [facility]11-12-2024 Telephone encounter Note * Telephone Encounter - Chapito Ventura RN - 08/04/2024 8:51 AM EST 1st risk assessment form submitted 08/04/24 Chapito Ventura RN [facility]11-12-2024 Miscellaneous Notes* Telephone Encounter - Chapito Ventura RN - 08/04/2024 8:51 AM EST 1st risk assessment form submitted 08/04/24 Chapito Ventura RN documented in this encounterMorrow [facility] Hospital11-11-2024 History of Present illness Narrative* Yamila Azar MA - 08/03/2024 1:00 PM EST OB point of care ultrasound was performed. See imaging tab for details. Yamila Azar MA * Kati Rolle APRN.[facility] - 08/03/2024 12:42 PM EST Hemodialysis Lab Technician offered: Patient declines. INITIAL OB ASSESSMENT HPI: [...] myself has occurred to me. 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 Rebecca heath counseling. Bipolar SKIN: Negative for: Rash, Itching GENITOURINARY: Negative for: vaginal itching, vaginal discharge, hematuria or dysuria SENSITIVE EXAM: The sensitive examination was discussed with the Patient or Patient's Authorized Sales Service Rep. As applicable, any other physician, advance practice provider, medical student, or other health professional student that will be observing or involved in the sensitive examination for educational or training purposes was discussed with the Patient or Authorized Sales Service Rep. The Patient or Authorized Sales Service Rep has agreed to proceed with the sensitive [...] Your guide to a health and the Performance Solutions Specialist. 2) Screening: Hemoglobin A1C: ordered Baby [...] prn. Kati Rolle APRN.CNM documented in this encounterMorrow [facility] Hospital11-11-2024 NoteHNO ID: [id number] Author: YAMILA AZAR MA Service: ? Author Type: Rocket Assembly Operator Type: Progress Notes Filed: 08/03/2024 14:49 Note Text: OB point of care ultrasound was performed. See imaging tab for details. [facility]24 NoteHNO ID: [id number] Author: KATI ROLLE APRN.CNM Service: ? Author Type: Medical Records Assistant Type: Progress Notes Filed: 08/03/2024 14:49 Note Text: Hemodialysis Lab Technician offered: Patient declines. INITIAL OB ASSESSMENT HPI: [...] myself has occurred to me. 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 [email or web address] documented in this encounterMorrow County Hospital11-01-2024 NoteHNO ID: [id number] Author: ARLEEN ARCOS APRN.JASE Service: ? Author Type: Nurse Practitioner Type: [...] Patient agreeable to treatment plan. Arleen Arcos APRN.[facility]11-01-2024 History of Present illness Narrative* Arleen Arcos APRN.[facility] - 07/24/2024 11:28 AM EDT CC: Patient presents with: Cough: Chest congestion, [...] Patient agreeable to treatment plan. Arleen Arcos APRN.JASE documented in this encounterMorrow County Hospital10-19-2024 Instructions* Patient Instructions* Alexia Enriquez - 07/11/2024 11:33 AM EDT ASSESSMENT/PLAN: 1. Missed period - ICD9: 626.4, ICD10: N92.6 (primary diagnosis) POSITIVE URINE HCG RESULT 2. Encounter for confirmation of test result with physical examination - ICD9: V72.40, ICD10: Z32.00 Discussed plan of care with patient. Patient advised to notify Dr. Sanders with [facility], the provider that prescribes her medications for depression and anxiety. Patient advised that she will need to wean off some of her medications due to risks during . Patient advised to schedule and appointment with an CORPORATE BANKING OFFICER provider. Patient asks about mild uterine cramping and if this is normal. Patient advised that some uterine cramping may be normal post uterine implantation, advised on signs and symptoms to monitor for and when to seek emergency care. All patient's questions answered. Patient agreeable with plan and verbalizes understanding. Alexia Enriquez, Student HYDROBLASTER documented in this encounterMorrow [facility] Hospital10-19-2024 NoteHNO ID: [id number] Author: SHU GOMEZ APRN.FURNACE STOCK INSPECTOR Service: ? Author Type: Nurse Practitioner Type: [...] RELIEF) 50 mcg/actuation nasal spray Use 1 [place] in each nostril once daily. (Patient not [...] Patient advised to notify Dr. Sanders with [facility], the provider that prescribes her medications for depression and anxiety. Patient advised that she will need to wean off some of her medications due to risks during . Patient advised to schedule and appointment with an CORPORATE BANKING OFFICER provider. Patient asks about mild uterine cramping and if this is normal. Patient advised that some uterine cramping may be normal post uterine implantation, advised on signs and symptoms to monitor for and when to seek emergency care. All patient's questions answered. Patient agreeable with plan and verbalizes understanding. Alexia Enriquez, Student HYDROBLASTER TEACHING PROVIDER (Physician/PA/BRICK MOLDER HAND) NOTE OF PERSONAL INVOLVEMENT IN CARE: I have personally seen and examined the patient and performed the medical decision-making components. I have reviewed the Advanced Practice Registered Nurse (BRICK MOLDER HAND) Student's documentation and verified the findings in the note as written. Any additions or changes are noted in bold/italics. Signature: Shu Gomez Date: 07/11/2024 Time: 12:19 [facility]10-19-2024 History of Present illness Narrative* Shu Gomez APRN.FURNACE STOCK INSPECTOR - 07/11/2024 11:26 AM EDT Subjective Val Ruiz is a 23 year [...] RELIEF) 50 mcg/actuation nasal spray Use 1 [place] in each nostril once daily. (Patient not [...] 76.4 kg (168 lb 6.9 oz) LMP 06/15/2024(Exact Date) SpO2 100% Objective Physical Exam Vitals [...] Patient advised to notify Dr. Sanders with [facility], the provider that prescribes her medications for depression and anxiety. Patient advised that she will need to wean off some of her medications due to risks during . Patient advised to schedule and appointment with an CORPORATE BANKING OFFICER provider. Patient asks about mild uterine cramping and if this is normal. Patient advised that some uterine cramping may be normal post uterine implantation, advised on signs and symptoms to monitor for and when to seek emergency care. All patient's questions answered. Patient agreeable with plan and verbalizes understanding. Alexia Enriquez, Student HYDROBLASTER TEACHING PROVIDER (Physician/PA/BRICK MOLDER HAND) NOTE OF PERSONAL INVOLVEMENT IN CARE: I have personally seen and examined the patient and performed the medical decision-making components. I have reviewed the Advanced Practice Registered Nurse (BRICK MOLDER HAND) Student's documentation and verified the findings in the note as written. Any additions or changes are noted in bold/italics. Signature: Shu Gomez Date: 07/11/2024 Time: 12:19 PM documented in this encounterMorrow County Hospital09-27-2024 History of Present illness Narrative* Shari Noble RT(Vin) - 06/19/2024 11:20 AM EDT Radiology Service Progress Note PATIENT NAME: Val Ruiz DATE OF SERVICE: June 19, 2024 TIME: 11:12 AM PATIENT IDENTITY VERIFICATION COMPLETED USING TWO (2) IDENTIFIERS: Name and Date of confirmedby patient verbally. FALL SCREENING: Has the patient had 2 falls in the last year or 1 fall with injury or currently using an Ambulatory Assistive Device (Walker, Cane, Wheelchair, Crutches, etc.)? No PATIENT GENDER DATA: Female. status: : No status: NO. PATIENT RELEVANT IMPLANT DATA REVIEWED: Not Applicable PATIENT PRESENTS WITH AN IMPLANTABLE OR ATTACHED FLARE MAKER: No RADIOLOGY DEPARTMENT: General X-ray: Exam(s) Completed: Chest X-Ray PERIPHERAL IV DATA: Not applicable SIGNED BY: JOHN Anaya) June 19, 2024 11:12 AM documented in this encounterMorrow County Hospital09-27-2024 NoteHNO ID: [id number] Author: SHARI NOBLE RT(R) Service: Radiology Author Type: Technologist Type: Progress [...] PATIENT PRESENTS WITH AN IMPLANTABLE OR ATTACHED FLARE MAKER: No RADIOLOGY DEPARTMENT: General X-ray: Exam(s) Completed: Chest X-Ray PERIPHERAL IV DATA: Not applicable SIGNED BY: Shari Noble RT(R) June 19, 2024 11:12 [facility]09-27-2024 NoteHNO ID: [id number] Author: ARLEEN ARCOS APRN.FURNACE STOCK INSPECTOR Service: ? Author Type: Nurse Practitioner Type: [...] RELIEF) 50 mcg/actuation nasal spray Use 1 [place] in each nostril once daily. (Patient not [...] Unremarkable. IMPRESSION IMPRESSION: No acute radiographic abnormality. Regulatory Attorney: MEDHAT Transcribe Date/Time: Jun 19 2024 11:31A [...] Patient agreeable to treatment plan. Arleen Arcos APRN.[facility]09-27-2024 History of Present illness Narrative* Arleen Arcos APRN.[facility] - 06/19/2024 11:03 AM EDT CC: Patient presents with: Cough: Chest congestion, [...] RELIEF) 50 mcg/actuation nasal spray Use 1 [place] in each nostril once daily. (Patient not [...] Unremarkable. IMPRESSION IMPRESSION: No acute radiographic abnormality. Regulatory Attorney: MEDHAT Transcribe Date/Time: Jun 19 2024 11:31A [...] Patient agreeable to treatment plan. Arleen Arcos APRN.FURNACE STOCK INSPECTOR documented in this encounterMorrow County Hospital08-25-2024 NoteHNO ID: [id number] Author: ARIELLE ARIAS APRN.JASE Service: ? Author Type: Nurse Practitioner Type: [...] Immunization History Administered Date(s) Administered COVID-19 vaccine (La Ruche qui dit Oui) 02/22/2021 Current Medications: MUCUS RELIEF ER 600 [...] RELIEF) 50 mcg/actuation nasal spray Use 1 [place] in each nostril once daily. busPIRone (BUSPAR) [...] DOXYCYCLINE HYCLATE 100 MG CAPSULE Arielle Arias APRN.FURNACE STOCK INSPECTOR The above reflects my independent exam and review of the patient's medical record. I saw and examined the patient myself personally. Parts of the HPI, ROS, exam, impress (more content not included)...[facility] [id number] History of Present illness Narrative* Arielle Arias, JOSE.FURNACE STOCK INSPECTOR - 05/17/2024 2:21 PM EDT May 17, 2024 HPI: Val Ruiz is a 23 year old female who presents today for cough, sinus congestion, drainageand pressure with ear fullness x 2 weeks. [...] Immunization History Administered Date(s) Administered COVID-19 vaccine (La Ruche qui dit Oui) 02/22/2021 Current Medications: MUCUS RELIEF ER 600 [...] RELIEF) 50 mcg/actuation nasal spray Use 1 [place] in each nostril once daily. busPIRone (BUSPAR) [...] today. Voice recognition device used, may be minorgrammar or spelling errors. documented in this encounterMorrow County Hospital08-25-2024 Instructions* Patient Instructions* Arielle Arias APRN.CNP - 05/17/2024 2:17 PM [...] mucus does not always mean that you havea bacterial infection. You might also have normal [...] on its own. But the cough can takeup to 3 weeks to get better, and [...] on cough drops or hard candy. ?Take ojem-sde-pznpvsm cough and cold medicines. ?Breath in warm, [...] of the best ways to do this isto wash your hands often with soap and [...] better after 3 weeks documented in this encounterMorrow [facility] Hospital07-01-2024 NoteHNO ID: [id number] Author: RICCARDO LEVINE PA Service: ? Author Type: Physician Stove Fitter Type: Progress Notes Filed: 03/23/2024 13:29 Note [...] Immunization History Administered Date(s) Administered COVID-19 vaccine (La Ruche qui dit Oui) 02/22/2021 Current Medications: albuterol HFA (PROVENTIL HFA, [...] RELIEF) 50 mcg/actuation nasal spray Use 1 [place] in each nostril once daily. busPIRone (BUSPAR) [...] to today's visit. Current (more content not included)...[facility] [id number] History of Present illness Narrative* Riccardo Levine PA - 03/23/2024 1:27 PM EDT March 23, 2024 HPI: Val Ruiz is a 23 year old female who presents today for Sinusitis (Drainage/congestion/Started 1 week ago becoming worse within the last 3 days./OTC:Allergy Med/Mucinex/Tylenol Cold and Sinus), Cough, and Chest Congestion. Patient states in total it has been a week with the sinus congestio n. Has a history of sinus infections in [...] Immunization History Administered Date(s) Administered COVID-19 vaccine (La Ruche qui dit Oui) 02/22/2021 Current Medications: albuterol HFA (PROVENTIL HFA, [...] RELIEF) 50 mcg/actuation nasal spray Use 1 [place] in each nostril once daily. busPIRone (BUSPAR) [...] Plan as outlined above. documented in this encounterMorrow County Hospital07-01-2024 Instructions* Patient Instructions* Riccardo Levine PA - 03/23/2024 1:27 PM [...] vomiting, or unusual drowsiness. documented in this encounterMorrow County Hospital08-09-2022 NoteHNO ID: [id number] Author: Asif Del Valle APRN.FURNACE STOCK INSPECTOR Service: ? Author Type: Nurse Practitioner Type: [...] Denies nausea or vomiting. Has been taking noki-hfx-neuqjbd cold/sinus meds with no improvement of symptoms. [...] other questions or concerns. Asif Del Valle APRN.FURNACE STOCK INSPECTOR This note was generated with voice recognition software and may contain errors, including spelling, grammar, syntax and misrecognition of what was dictated, that are not fully corrected.[facility]08-09-2022 History of Present illness Narrative* Asif Del Valle APRN.FURNACE STOCK INSPECTOR - 05/01/2022 10:55 AM EDT HPI: Val Ruiz is a 21 year old female who presents with complaint of sinus pressure, chest congestion, and cough. Patient reports symptoms started about 1 week ago but beginning yesterday developed a fever with temperature up to 101. She denies any chest pain or shortness of breath. Denies nausea or vomiting. Has been taking zqfu-qss-kiehowv cold/sinus meds with no improvement of symptoms. [...] recognition software and may contain errors, including spelling,grammar, syntax and misrecognition of what was dictated, that are not fully corrected. documented in this encounterMorrow County Hospital08-09-2022 Instructions* Patient Instructions* Asif Del Valle APRN.CNP - 05/01/2022 10:54 [...] PCP if symptoms continue documented in this encounterMorrow County Hospital01-26-2022 History of Present illness Narrative* Asif Del Valle APRN.CNP - 10/18/2021 10:05 AM EST DATE OF SERVICE: 10/18/2021 SUBJECTIVE: Patient is [...] questions or concerns. Asif Del Valle CNP /[id number] SSI File#: [id number] END OF DOCUMENT / CHANGE LOG FOLLOWS Last Edited By Audie. Signed By Asif Del Valle CNP #MOYCO Asif Del Valle CNP #MOYCO on 10/18/2021 11:08 ET on 10/18/2021 11:08 ET Revision Number - 2 ^^^ Verified/Reviewed by 10/18/21 1108 [facility] [facility] PATIENT NAME: VAL RUIZ [address] [place] MEDICAL REC #: [id number] [place] [address] [facility] REPORT STATCARE PHYSICIAN documented in this encounterMorrow County Hospital11-08-2021 History of Present illness Narrative* Zoie Potter PA-C - 07/31/2021 1:23 PM EST DATE OF SERVICE: 07/28/2021 HISTORY OF PRESENT [...] care. Patient agreeable, stable. All questions answered. JENI Garcia/[id number] SSI File#: [id number] END OF DOCUMENT / CHANGE LOG FOLLOWS Last Edited By Elec. Signed By Zoie Potter #[email or web address] Zoie Potter #[email or web address] on 08/04/2021 14:37 ET on 08/04/2021 14:37 ET Revision Number - 2 ^^^ Verified/Reviewed by 08/04/21 [id number] [email or web address] [facility] PATIENT NAME: VAL RUIZ N [address] [place] MEDICAL REC #: [id number] [place] [address] [facility] REPORT STATCARE PHYSICIAN documented in this encounterMorrow County Hospital08-05-2021 History of Present illness Narrative* Misty López PA-C - 04/27/2021 2:24 PM EDT DATE OF SERVICE: 04/26/2021 HISTORY OF PRESENT ILLNESS: Patient is a 20-year-old female here for fever, sore throat, cough, congestion, dizziness, headache, nausea. Fever up to 102 yesterday. She has had symptoms since around Saturday or Saturday. ALLERGIES: KEFLEX. PHYSICAL EXAMINATION: Vital Signs: Blood pressure 118/80, pulse 84, respirations 12, temperature 100.1, pulse oximetry 97%. Pain 8 out of 10. She works at [employer]. No exposure to COVID that she knows [...] They acknowledged and understood. Misty López PA-C CP/[id number] SSI File#: [id number] END OF DOCUMENT / CHANGE LOG FOLLOWS Last Edited By Elec. Signed By Misty López PAC #Misty Austin PAC #LENCHO on 04/28/2021 13:23 ET on 04/28/2021 13:23 ET Revision Number - 2 ^^^ Verified/Reviewed by 04/28/21 1323 [place] [facility] PATIENT NAME: VAL RUIZ [address] [place] MEDICAL REC #: [id number] [place] [address] [facility] documented in this encounterMorrow County Hospital07-05-2021 History of Present illness Narrative* Asif Del Valle APRN.FURNACE STOCK INSPECTOR - 03/27/2021 4:17 PM EDT DATE OF SERVICE: 03/27/2021 SUBJECTIVE: Patient is a 20-year-old female presenting to [facility] today for fever, body aches, cough, congestion, [...] questions or concerns. Asif Del Valle CNP /[id number] [facility] File#: [id number] END OF DOCUMENT / CHANGE LOG FOLLOWS Last Edited By Elec. Signed By Asif Del Valle CNP #MOYCO Asif Del Valle CNP #MOYCO on 03/27/2021 16:39 ET on 03/27/2021 16:39 ET Revision Number - 2 ^^^ Verified/Reviewed by 03/27/21 1639 [facility] PATIENT NAME: VAL RUIZ [address] [place] MEDICAL REC #: [id number] [place] [address] [facility] REPORT STATCARE PHYSICIAN documented in this encounterMorrow County Hospital06-30-2021 History of Present illness Narrative* Asif Del Valle APRN.FURNACE STOCK INSPECTOR - 03/22/2021 8:27 PM EDT DATE OF SERVICE: 03/21/2021 HISTORY OF PRESENT ILLNESS: Patient is a 20-year-old [facility] body [facility], fever, chills, headache [...] Nausea. 3. Fever. 4. Dysuria. PLAN: Jessica ODT sent to pharmacy. I discussed follow-up in regards to urine culture. Tylenol, ibuprofen, increased oral hydration, rest. Off work today and tomorrow. She is agreeable with plan. No other questions or concerns. Asif Del Valle CNP /[id number] SSI File#: [id number] END OF DOCUMENT / CHANGE LOG FOLLOWS Last Edited By Elec. Signed By Asif Del Valle CNP #MOYCO Asif Del Valle CNP #MOYCO on 03/26/2021 09:06 ET on 03/26/2021 09:06 ET Revision Number - 2 ^^^ Verified/Reviewed by 03/26/21 0906 [facility] PATIENT NAME: VAL RUIZ [address] [place] MEDICAL REC #: [id number] [place] [address] [place] [facility] REPORT STATCARE PHYSICIAN documented in this encounterMorrow County Hospital04-09-2021 History of Present illness Narrative* Destini Rogel - 12/30/2020 10:02 AM EDT DATE OF SERVICE: 12/30/2020 CHIEF COMPLAINT: Abdominal [...] The patient stable upon discharge from [facility] [place]. JENI Szymanski/[id number] [facility] File#: [id number] END OF DOCUMENT / CHANGE LOG FOLLOWS Last Edited By Elec. Signed By Destini Rogel PAC #[email or web address] Destini Rogel PAC #[email or web address] on 12/30/2020 10:53 ET on 12/30/2020 10:53 ET Revision Number - 2 ^^^ Verified/Reviewed by 12/30/20 1053 [email or web address] [facility] PATIENT NAME: VAL RUIZ [address] [place] MEDICAL REC #: [id number] [place] [address] [facility] REPORT STAT[facility]ARE PHYSICIAN [facility]* Diagnosis Acute non-recurrent frontal sinusitis- Primary [facility]* Diagnosis Acute non-recurrent frontal sinusitis- Primary Acute otitis media, left Unspecified otitis media [facility] [place] [facility]* Diagnosis Bronchitis- Primary Bronchitis, not specified as acute or chronic Acute non-recurrent pansinusitis Lower respiratory infection Other diseases of respiratory system, not elsewhere classified documented [facility]* Diagnosis Acute cough- Primary URI, acute Acute upper respiratory infections of unspecified site Acute cough [facility] [place] [facility]* Diagnosis Acute cough [facility]* Diagnosis Missed period- Primary Irregular menstrual cycle Encounter for confirmation of test result with physical examination examination or test, unconfirmed documented [facility] [place] [facility]* Diagnosis Rhinosinusitis- Primary Unspecified sinusitis (chronic) documented [facility] [place] [facility]* Diagnosis with uncertain dates in first [...] diabetes mellitus (GDM) documented [facility] [place] [facility]* Diagnosis URI, acute- Primary Acute upper respiratory infections of unspecified site Acute cough [facility] [place] [facility]* Diagnosis Bacterial sinusitis- Primary Unspecified sinusitis (chronic) Bacterial conjunctivitis Other conjunctivitis documented [facility] [place] [facility]* Diagnosis 13 weeks gestation of - Primary state, incidental Encounter for supervision of other normal in second trimester documented in this [facility] [place] [facility]* Diagnosis Encounter for screening for malformation using ultrasound- Primary 13 weeks gestation of state, incidental [facility] [place] [facility] Diagnosis Elevated hemoglobin A1c- Primary Other abnormal blood chemistry documented in this [facility] [place] [facility]* Diagnosis 14 weeks gestation of - Primary state, incidental documented [facility] this [facility] [place] [facility]* Diagnosis Elevated glucose tolerance test- Primary Impaired glucose tolerance test Diet controlled gestational diabetes mellitus (GDM) in second trimester [facility] [place] [facility]* Diagnosis Diet controlled gestational diabetes mellitus (GDM) in second trimester [facility] [place] [facility]* Diagnosis Encounter for screening for malformation using ultrasound- Primary Encounter for anatomic survey 17 weeks gestation of state, incidental documented in this encounter [facility] note* Diagnosis Elevated glucose tolerance test- Primary Impaired glucose tolerance test Encounter for supervision of other normal in second trimester 17 weeks gestation of state, incidental Pre-existing type 2 diabetes mellitus during in first trimester Pre-existing diabetes mellitus in in second trimester Diabetes mellitus, antepartum documented in this encounter [facility] note* Diagnosis Acute non-recurrent sinusitis, unspecified location- Primary documented in this encounter [facility] note* Diagnosis Insulin controlled gestational diabetes mellitus (GDM) in second trimester- Primary documented in this encounter [facility] note* Diagnosis Supervision of high risk in second trimester- Primary Unspecified high-risk Pre-existing diabetes mellitus in in second trimester Diabetes mellitus, antepartum 21 weeks gestation of state, incidental Previous delivery affecting , antepartum Previous delivery, antepartum condition or complication documented in this encounter [facility] note* Diagnosis Encounter for anatomic survey- Primary Encounter for supervision of other normal in second trimester 21 weeks gestation of state, incidental documented in this encounter [facility] note* Diagnosis Maternal care for (suspected) abnormality and damage, unspecified, fetus 1 [O35.9XX1]- Primary documented in this encounter [facility] note* Diagnosis Encounter for ultrasound to check [...] of state, incidental documented in this encounter [facility] note* Diagnosis Supervision of high risk [...] Growth US today. documented in this encounter [facility] note* Diagnosis Supervision of high risk in second trimester- Primary Unspecified high-risk Pre-existing diabetes mellitus in in second trimester Diabetes mellitus, antepartum Previous delivery affecting , antepartum Previous delivery, antepartum condition or complication 25 weeks gestation of state, incidental Insulin controlled gestational diabetes mellitus (GDM) in third trimester- Primary documented in this encounter [facility] note* Diagnosis Supervision of high risk in second trimester (HCC)- Primary Unspecified high-risk Pre-existing diabetes mellitus in in second trimester ([facility]) Diabetes mellitus, antepartum Previous delivery affecting , antepartum ([facility]) Previous delivery, antepartum condition or complication 25 weeks gestation of ([facility]) state, incidental Pre-existing diabetes mellitus in in second trimester ([facility])- Primary Diabetes mellitus, antepartum Previous delivery affecting , antepartum ([facility]) Previous delivery, antepartum condition or complication Supervision of high risk in third trimester ([facility]) Unspecified high-risk * Assessment & Plan Note - Alfred Arcos MD - 12/25/2024 11:02 AM EDTAssociated Problem(s): Pre-existing diabetes mellitus in in second trimester ([facility]) Managed by & on insulin. Orders: URINE OB DIP B/O documented in this encounter [facility] note* Diagnosis Supervision of high risk in second trimester (HCC)- Primary Unspecified high-risk Pre-existing diabetes mellitus in in second trimester ([facility]) Diabetes mellitus, antepartum Previous delivery affecting , antepartum ([facility]) Previous delivery, antepartum condition or complication 25 weeks gestation of ([facility]) state, incidental Encounter for ultrasound to check growth ([facility])- Primary Encounter for routine screening for malformation using ultrasonics Pre-existing diabetes mellitus in in second trimester ([facility]) Diabetes mellitus, antepartum 28 weeks gestation of ([facility]) state, incidental Pre-existing diabetes mellitus in in second trimester ([facility])- Primary Diabetes mellitus, antepartum Previous delivery affecting , antepartum (HCC) Previous delivery, antepartum condition or complication Supervision of high risk in third trimester ([facility]) Unspecified high-risk documented in this encounter [facility] note* Diagnosis Supervision of high risk in second trimester ([facility])- Primary Unspecified high-risk Pre-existing diabetes mellitus in in second trimester ([facility]) Diabetes mellitus, antepartum Previous delivery affecting , antepartum ([facility]) Previous delivery, antepartum condition or complication 25 weeks gestation of ([facility]) state, incidental Pre-existing diabetes mellitus in in second trimester ([facility])- Primary Diabetes mellitus, antepartum Previous delivery affecting , antepartum ([facility]) Previous delivery, antepartum condition or complication Supervision of high risk in third trimester ([facility]) Unspecified high-risk Maternal iron deficiency anemia complicating , third trimester ([facility])- Primary documented in this encounter [facility] note* Diagnosis Supervision of high risk in second trimester ([facility])- Primary Unspecified high-risk Pre-existing diabetes mellitus in in second trimester ([facility]) Diabetes mellitus, antepartum Previous delivery affecting , antepartum ([facility]) Previous delivery, antepartum condition or complication 25 weeks gestation of ([facility]) state, incidental Pre-existing diabetes mellitus in in second trimester ([facility])- Primary Diabetes mellitus, antepartum Previous delivery affecting , antepartum ([facility]) Previous delivery, antepartum condition or complication Supervision of high risk in third trimester ([facility]) Unspecified high-risk 30 weeks gestation of ([facility])- Primary state, incidental Previous section Other postprocedural status Need for vaccination Need for prophylactic vaccination and inoculation against unspecified single disease Pre-existing diabetes mellitus in in second trimester ([facility]) Diabetes mellitus, antepartum Maternal iron deficiency anemia complicating , third trimester ([facility]) * Assessment & Plan Note - Alfred Arcos MD - 01/07/2025 2:22 PM EDTAssociated Problem(s): Pre-existing diabetes mellitus in in second trimester ([facility]) Well controlled on insulin. Follows with endo. * Assessment & Plan Note - Alfred Arcos MD - 01/07/2025 2:22 PM EDTAssociated Problem(s): Maternal iron deficiency anemia complicating , third trimester ([facility]) Needs to schedule IV iron. documented in this encounter [facility]* Diagnosis Supervision of high risk in second trimester (HCC)- Primary Unspecified high-risk Pre-existing diabetes mellitus in in second trimester ([facility]) Diabetes mellitus, antepartum Previous delivery affecting , antepartum (HCC) Previous delivery, antepartum condition or complication 25 weeks gestation of ([facility]) state, incidental Pre-existing diabetes mellitus in in second trimester (HCC)- Primary Diabetes mellitus, antepartum Previous delivery affecting , antepartum (HCC) Previous delivery, antepartum condition or complication Supervision of high risk in third trimester ([facility]) Unspecified high-risk 30 weeks gestation of ([facility])- Primary state, incidental Previous section Other postprocedural status Need for vaccination Need for prophylactic vaccination and inoculation against unspecified single disease Pre-existing diabetes mellitus in in second trimester ([facility]) Diabetes mellitus, antepartum Maternal iron deficiency anemia complicating , third trimester ([facility]) Malignant neoplasm of prostate (HCC)- Primary Malignant neoplasm of prostate Maternal iron deficiency anemia complicating , third trimester ([facility]) documented in this encounter [facility]* Diagnosis Supervision of high risk in second trimester (HCC)- Primary Unspecified high-risk Pre-existing diabetes mellitus in in second trimester (HCC) Diabetes mellitus, antepartum Previous delivery affecting , antepartum (HCC) Previous delivery, antepartum condition or complication 25 weeks gestation of ([facility]) state, incidental Pre-existing diabetes mellitus in in second trimester ([facility])- Primary Diabetes mellitus, antepartum Previous delivery affecting , antepartum (HCC) Previous delivery, antepartum condition or complication Supervision of high risk in third trimester ([facility]) Unspecified high-risk 30 weeks gestation of ([facility])- Primary state, incidental Previous section Other postprocedural status Need for vaccination Need for prophylactic vaccination and inoculation against unspecified single disease Pre-existing diabetes mellitus in in second trimester ([facility]) Diabetes mellitus, antepartum Maternal iron deficiency anemia complicating , third trimester (HCC) Maternal iron deficiency anemia complicating , third trimester ([facility])- Primary documented in this encounter [facility] note* Diagnosis Supervision of high risk in second trimester ([facility])- Primary Unspecified high-risk Pre-existing diabetes mellitus in in second trimester ([facility]) Diabetes mellitus, antepartum Previous delivery affecting , antepartum ([facility]) Previous delivery, antepartum condition or complication 25 weeks gestation of ([facility]) state, incidental Pre-existing diabetes mellitus in in second trimester ([facility])- Primary Diabetes mellitus, antepartum Previous delivery affecting , antepartum ([facility]) Previous delivery, antepartum condition or complication Supervision of high risk in third trimester ([facility]) Unspecified high-risk 30 weeks gestation of ([facility])- Primary state, incidental Previous section Other postprocedural status Need for vaccination Need for prophylactic vaccination and inoculation against unspecified single disease Pre-existing diabetes mellitus in in second trimester ([facility]) Diabetes mellitus, antepartum Maternal iron deficiency anemia complicating , third trimester ([facility]) Maternal iron deficiency anemia complicating , third trimester ([facility])- Primary documented in this encounter [facility] note* Diagnosis Supervision of high risk in second trimester ([facility])- Primary Unspecified high-risk Pre-existing diabetes mellitus in in second trimester ([facility]) Diabetes mellitus, antepartum Previous delivery affecting , antepartum ([facility]) Previous delivery, antepartum condition or complication 25 weeks gestation of ([facility]) state, incidental Pre-existing diabetes mellitus in in second trimester ([facility])- Primary Diabetes mellitus, antepartum Previous delivery affecting , antepartum ([facility]) Previous delivery, antepartum condition or complication Supervision of high risk in third trimester ([facility]) Unspecified high-risk 30 weeks gestation of ([facility])- Primary state, incidental Previous section Other postprocedural status Need for vaccination Need for prophylactic vaccination and inoculation against unspecified single disease Pre-existing diabetes mellitus in in second trimester ([facility]) Diabetes mellitus, antepartum Maternal iron deficiency anemia complicating , third trimester ([facility]) Insulin controlled gestational diabetes mellitus (GDM) in third trimester ([facility])- Primary documented in this encounter [facility] note* Diagnosis Supervision of high risk in second trimester (HCC)- Primary Unspecified high-risk Pre-existing diabetes mellitus in in second trimester ([facility]) Diabetes mellitus, antepartum Previous delivery affecting , antepartum (HCC) Previous delivery, antepartum condition or complication 25 weeks gestation of ([facility]) state, incidental Pre-existing diabetes mellitus in in second trimester ([facility])- Primary Diabetes mellitus, antepartum Previous delivery affecting , antepartum ([facility]) Previous delivery, antepartum condition or complication Supervision of high risk in third trimester ([facility]) Unspecified high-risk 30 weeks gestation of ([facility])- Primary state, incidental Previous section Other postprocedural status Need for vaccination Need for prophylactic vaccination and inoculation against unspecified single disease Pre-existing diabetes mellitus in in second trimester ([facility]) Diabetes mellitus, antepartum Maternal iron deficiency anemia complicating , third trimester ([facility]) 32 weeks gestation of ([facility])- Primary state, incidental Pre-existing diabetes mellitus in in second trimester ([facility]) Diabetes mellitus, antepartum Previous section Other postprocedural status Anemia complicating , third trimester ([facility]) [facility] [place] [facility]* Diagnosis Supervision of high risk in second trimester ([facility])- Primary Unspecified high-risk Pre-existing diabetes mellitus in in second trimester ([facility]) Diabetes mellitus, antepartum Previous delivery affecting , antepartum ([facility]) Previous delivery, antepartum condition or complication 25 weeks gestation of ([facility]) state, incidental Pre-existing diabetes mellitus in in second trimester ([facility])- Primary Diabetes mellitus, antepartum Previous delivery affecting , antepartum ([facility]) Previous delivery, antepartum condition or complication Supervision of high risk in third trimester ([facility]) Unspecified high-risk 30 weeks gestation of ([facility])- Primary state, incidental Previous section Other postprocedural status Need for vaccination Need for prophylactic vaccination and inoculation against unspecified single disease Pre-existing diabetes mellitus in in second trimester ([facility]) Diabetes mellitus, antepartum Maternal iron deficiency anemia complicating , third trimester ([facility]) Encounter for ultrasound to check growth ([facility])- Primary Encounter for routine screening for malformation using ultrasonics Pre-existing diabetes mellitus in in second trimester ([facility]) Diabetes mellitus, antepartum 32 weeks gestation of ([facility]) state, incidental 32 weeks gestation of ([facility])- Primary state, incidental Pre-existing diabetes mellitus in in second trimester ([facility]) Diabetes mellitus, antepartum Previous section Other postprocedural status Anemia complicating , third trimester ([facility]) documented in this encounter [facility]* Diagnosis Supervision of high risk in second trimester ([facility])- Primary Unspecified high-risk Pre-existing diabetes mellitus in in second trimester ([facility]) Diabetes mellitus, antepartum Previous delivery affecting , antepartum ([facility]) Previous delivery, antepartum condition or complication 25 weeks gestation of ([facility]) state, incidental Pre-existing diabetes mellitus in in second trimester ([facility])- Primary Diabetes mellitus, antepartum Previous delivery affecting , antepartum ([facility]) Previous delivery, antepartum condition or complication Supervision of high risk in third trimester ([facility]) Unspecified high-risk 30 weeks gestation of ([facility])- Primary state, incidental Previous section Other postprocedural status Need for vaccination Need for prophylactic vaccination and inoculation against unspecified single disease Pre-existing diabetes mellitus in in second trimester ([facility]) Diabetes mellitus, antepartum Maternal iron deficiency anemia complicating , third trimester ([facility]) 32 weeks gestation of ([facility])- Primary state, incidental Pre-existing diabetes mellitus in in second trimester ([facility]) Diabetes mellitus, antepartum Previous section Other postprocedural status Anemia complicating , third trimester ([facility]) Maternal iron deficiency anemia complicating , third trimester ([facility])- Primary documented in this encounter [facility] note* Diagnosis Supervision of high risk in second trimester ([facility])- Primary Unspecified high-risk Pre-existing diabetes mellitus in in second trimester ([facility]) Diabetes mellitus, antepartum Previous delivery affecting , antepartum ([facility]) Previous delivery, antepartum condition or complication 25 weeks gestation of ([facility]) state, incidental Pre-existing diabetes mellitus in in second trimester ([facility])- Primary Diabetes mellitus, antepartum Previous delivery affecting , antepartum ([facility]) Previous delivery, antepartum condition or complication Supervision of high risk in third trimester ([facility]) Unspecified high-risk 30 weeks gestation of ([facility])- Primary state, incidental Previous section Other postprocedural status Need for vaccination Need for prophylactic vaccination and inoculation against unspecified single disease Pre-existing diabetes mellitus in in second trimester ([facility]) Diabetes mellitus, antepartum Maternal iron deficiency anemia complicating , third trimester ([facility]) 32 weeks gestation of ([facility])- Primary state, incidental Pre-existing diabetes mellitus in in second trimester ([facility]) Diabetes mellitus, antepartum Previous section Other postprocedural status Anemia complicating , third trimester ([facility]) Pre-existing diabetes mellitus in in second trimester ([facility])- Primary Diabetes mellitus, antepartum 32 weeks gestation of ([facility]) state, incidental documented in this encounter [facility] note* Diagnosis Supervision of high risk in second trimester ([facility])- Primary Unspecified high-risk Pre-existing diabetes mellitus in in second trimester ([facility]) Diabetes mellitus, antepartum Previous delivery affecting , antepartum ([facility]) Previous delivery, antepartum condition or complication 25 weeks gestation of ([facility]) state, incidental Pre-existing diabetes mellitus in in second trimester ([facility])- Primary Diabetes mellitus, antepartum Previous delivery affecting , antepartum ([facility]) Previous delivery, antepartum condition or complication Supervision of high risk in third trimester ([facility]) Unspecified high-risk 30 weeks gestation of ([facility])- Primary state, incidental Previous section Other postprocedural status Need for vaccination Need for prophylactic vaccination and inoculation against unspecified single disease Pre-existing diabetes mellitus in in second trimester ([facility]) Diabetes mellitus, antepartum Maternal iron deficiency anemia complicating , third trimester ([facility]) 32 weeks gestation of ([facility])- Primary state, incidental Pre-existing diabetes mellitus in in second trimester ([facility]) Diabetes mellitus, antepartum Previous section Other postprocedural status Anemia complicating , third trimester ([facility]) Supervision of high risk in third trimester ([facility])- Primary Unspecified high-risk Previous section Other postprocedural status Anemia complicating , third trimester ([facility]) 33 weeks gestation of ([facility]) state, incidental Pre-existing diabetes mellitus in in third trimester ([facility]) Diabetes mellitus, antepartum documented in this encounter [facility] note* Diagnosis Supervision of high risk in second trimester ([facility])- Primary Unspecified high-risk Pre-existing diabetes mellitus in in second trimester ([facility]) Diabetes mellitus, antepartum Previous delivery affecting , antepartum ([facility]) Previous delivery, antepartum condition or complication 25 weeks gestation of ([facility]) state, incidental Pre-existing diabetes mellitus in in second trimester ([facility])- Primary Diabetes mellitus, antepartum Previous delivery affecting , antepartum (HCC) Previous delivery, antepartum condition or complication Supervision of high risk in third trimester ([facility]) Unspecified high-risk 30 weeks gestation of ([facility])- Primary state, incidental Previous section Other postprocedural status Need for vaccination Need for prophylactic vaccination and inoculation against unspecified single disease Pre-existing diabetes mellitus in in second trimester ([facility]) Diabetes mellitus, antepartum Maternal iron deficiency anemia complicating , third trimester ([facility]) 32 weeks gestation of ([facility])- Primary state, incidental Pre-existing diabetes mellitus in in second trimester ([facility]) Diabetes mellitus, antepartum Previous section Other postprocedural status Anemia complicating , third trimester ([facility]) Pre-existing diabetes mellitus in in second trimester ([facility])- Primary Diabetes mellitus, antepartum 33 weeks gestation of ([facility]) state, incidental [facility] [place] [facility]* Diagnosis Supervision of high risk in second trimester ([facility])- Primary Unspecified high-risk Pre-existing diabetes mellitus in in second trimester ([facility]) Diabetes mellitus, antepartum Previous delivery affecting , antepartum ([facility]) Previous delivery, antepartum condition or complication 25 weeks gestation of ([facility]) state, incidental Pre-existing diabetes mellitus in in second trimester ([facility])- Primary Diabetes mellitus, antepartum Previous delivery affecting , antepartum ([facility]) Previous delivery, antepartum condition or complication Supervision of high risk in third trimester ([facility]) Unspecified high-risk 30 weeks gestation of ([facility])- Primary state, incidental Previous section Other postprocedural status Need for vaccination Need for prophylactic vaccination and inoculation against unspecified single disease Pre-existing diabetes mellitus in in second trimester ([facility]) Diabetes mellitus, antepartum Maternal iron deficiency anemia complicating , third trimester ([facility]) 32 weeks gestation of ([facility])- Primary state, incidental Pre-existing diabetes mellitus in in second trimester ([facility]) Diabetes mellitus, antepartum Previous section Other postprocedural status Anemia complicating , third trimester ([facility]) Supervision of high risk in third trimester ([facility])- Primary Unspecified high-risk Previous section Other postprocedural status Pre-existing diabetes mellitus in in third trimester ([facility]) Diabetes mellitus, antepartum 34 weeks gestation of ([facility]) state, incidental Headache in , antepartum, third trimester ([facility]) documented [facility]* Diagnosis Supervision of high risk in second trimester ([facility])- Primary Unspecified high-risk Pre-existing diabetes mellitus in in second trimester ([facility]) Diabetes mellitus, antepartum Previous delivery affecting , antepartum ([facility]) Previous delivery, antepartum condition or complication 25 weeks gestation of ([facility]) state, incidental Pre-existing diabetes mellitus in in second trimester ([facility])- Primary Diabetes mellitus, antepartum Previous delivery affecting , antepartum ([facility]) Previous delivery, antepartum condition or complication Supervision of high risk in third trimester ([facility]) Unspecified high-risk 30 weeks gestation of ([facility])- Primary state, incidental Previous section Other postprocedural status Need for vaccination Need for prophylactic vaccination and inoculation against unspecified single disease Pre-existing diabetes mellitus in in second trimester ([facility]) Diabetes mellitus, antepartum Maternal iron deficiency anemia complicating , third trimester ([facility]) 32 weeks gestation of ([facility])- Primary state, incidental Pre-existing diabetes mellitus in in second trimester ([facility]) Diabetes mellitus, antepartum Previous section Other postprocedural status Anemia complicating , third trimester ([facility]) Pre-existing diabetes mellitus in in second trimester ([facility])- Primary Diabetes mellitus, antepartum 34 weeks gestation of ([facility]) state, incidental documented [facility]* Diagnosis Supervision of high risk in second trimester ([facility])- Primary Unspecified high-risk Pre-existing diabetes mellitus in in second trimester ([facility]) Diabetes mellitus, antepartum Previous delivery affecting , antepartum ([facility]) Previous delivery, antepartum condition or complication 25 weeks gestation of ([facility]) state, incidental Pre-existing diabetes mellitus in in second trimester ([facility])- Primary Diabetes mellitus, antepartum Previous delivery affecting , antepartum ([facility]) Previous delivery, antepartum condition or complication Supervision of high risk in third trimester ([facility]) Unspecified high-risk 30 weeks gestation of ([facility])- Primary state, incidental Previous section Other postprocedural status Need for vaccination Need for prophylactic vaccination and inoculation against unspecified single disease Pre-existing diabetes mellitus in in second trimester ([facility]) Diabetes mellitus, antepartum Maternal iron deficiency anemia complicating , third trimester ([facility]) 32 weeks gestation of ([facility])- Primary state, incidental Pre-existing diabetes mellitus in in second trimester ([facility]) Diabetes mellitus, antepartum Previous section Other postprocedural status Anemia complicating , third trimester ([facility]) Supervision of high risk in third trimester ([facility])- Primary Unspecified high-risk Pre-existing diabetes mellitus in in third trimester ([facility]) Diabetes mellitus, antepartum Previous section Other postprocedural status Anemia complicating , third trimester ([facility]) Obesity during ([facility]) Pre-existing diabetes mellitus in in second trimester ([facility])- Primary Diabetes mellitus, antepartum [facility] [place] [facility] Diagnosis Supervision of high risk in second trimester ([facility])- Primary Unspecified high-risk Pre-existing diabetes mellitus in in second trimester ([facility]) Diabetes mellitus, antepartum Previous delivery affecting , antepartum ([facility]) Previous delivery, antepartum condition or complication 25 weeks gestation of ([facility]) state, incidental Pre-existing diabetes mellitus in in second trimester ([facility])- Primary Diabetes mellitus, antepartum Previous delivery affecting , antepartum ([facility]) Previous delivery, antepartum condition or complication Supervision of high risk in third trimester ([facility]) Unspecified high-risk 30 weeks gestation of ([facility])- Primary state, incidental Previous section Other postprocedural status Need for vaccination Need for prophylactic vaccination and inoculation against unspecified single disease Pre-existing diabetes mellitus in in second trimester ([facility]) Diabetes mellitus, antepartum Maternal iron deficiency anemia complicating , third trimester ([facility]) 32 weeks gestation of ([facility])- Primary state, incidental Pre-existing diabetes mellitus in in second trimester ([facility]) Diabetes mellitus, antepartum Previous section Other postprocedural status Anemia complicating , third trimester ([facility]) Supervision of high risk in third trimester ([facility])- Primary Unspecified high-risk Pre-existing diabetes mellitus in in third trimester ([facility]) Diabetes mellitus, antepartum Previous section Other postprocedural status Anemia complicating , third trimester ([facility]) Obesity during ([facility]) * Assessment & Plan Note - Mayra Frey MD - 02/19/2025 1:07 PM EDT Associated Problem(s): Obesity during ([facility]) Growth US pending today NST [facility] [place] [facility]* Diagnosis Supervision of high risk in second trimester ([facility])- Primary Unspecified high-risk Pre-existing diabetes mellitus in in second trimester ([facility]) Diabetes mellitus, antepartum Previous delivery affecting , antepartum ([facility]) Previous delivery, antepartum condition or complication 25 weeks gestation of ([facility]) state, incidental Pre-existing diabetes mellitus in in second trimester ([facility])- Primary Diabetes mellitus, antepartum Previous delivery affecting , antepartum ([facility]) Previous delivery, antepartum condition or complication Supervision of high risk in third trimester ([facility]) Unspecified high-risk 30 weeks gestation of ([facility])- Primary state, incidental Previous section Other postprocedural status Need for vaccination Need for prophylactic vaccination and inoculation against unspecified single disease Pre-existing diabetes mellitus in in second trimester ([facility]) Diabetes mellitus, antepartum Maternal iron deficiency anemia complicating , third trimester ([facility]) 32 weeks gestation of ([facility])- Primary state, incidental Pre-existing diabetes mellitus in in second trimester ([facility]) Diabetes mellitus, antepartum Previous section Other postprocedural status Anemia complicating , third trimester ([facility]) Supervision of high risk in third trimester ([facility])- Primary Unspecified high-risk Pre-existing diabetes mellitus in in third trimester ([facility]) Diabetes mellitus, antepartum Previous section Other postprocedural status Anemia complicating , third trimester ([facility]) Obesity during ([facility]) Insulin controlled gestational diabetes mellitus (GDM) in third trimester ([facility])- Primary [facility] [place] [facility]* Diagnosis Supervision of high risk in second trimester ([facility])- Primary Unspecified high-risk Pre-existing diabetes mellitus in in second trimester ([facility]) Diabetes mellitus, antepartum Previous delivery affecting , antepartum ([facility]) Previous delivery, antepartum condition or complication 25 weeks gestation of ([facility]) state, incidental Pre-existing diabetes mellitus in in second trimester ([facility])- Primary Diabetes mellitus, antepartum Previous delivery affecting , antepartum ([facility]) Previous delivery, antepartum condition or complication Supervision of high risk in third trimester ([facility]) Unspecified high-risk 30 weeks gestation of ([facility])- Primary state, incidental Previous section Other postprocedural status Need for vaccination Need for prophylactic vaccination and inoculation against unspecified single disease Pre-existing diabetes mellitus in in second trimester ([facility]) Diabetes mellitus, antepartum Maternal iron deficiency anemia complicating , third trimester ([facility]) 32 weeks gestation of ([facility])- Primary state, incidental Pre-existing diabetes mellitus in in second trimester ([facility]) Diabetes mellitus, antepartum Previous section Other postprocedural status Anemia complicating , third trimester ([facility]) Supervision of high risk in third trimester ([facility])- Primary Unspecified high-risk Pre-existing diabetes mellitus in in third trimester ([facility]) Diabetes mellitus, antepartum Previous section Other postprocedural status Anemia complicating , third trimester ([facility]) Obesity during ([facility]) Supervision of high risk in third trimester ([facility])- Primary Unspecified high-risk 37 weeks gestation of ([facility]) state, incidental Pre-existing diabetes mellitus in in third trimester ([facility]) Diabetes mellitus, antepartum Previous section Other postprocedural status [facility] [place] [facility]* Diagnosis Supervision of high risk in second trimester ([facility])- Primary Unspecified high-risk Pre-existing diabetes mellitus in in second trimester ([facility]) Diabetes mellitus, antepartum Previous delivery affecting , antepartum ([facility]) Previous delivery, antepartum condition or complication 25 weeks gestation of ([facility]) state, incidental Pre-existing diabetes mellitus in in second trimester ([facility])- Primary Diabetes mellitus, antepartum Previous delivery affecting , antepartum ([facility]) Previous delivery, antepartum condition or complication Supervision of high risk in third trimester ([facility]) Unspecified high-risk 30 weeks gestation of ([facility])- Primary state, incidental Previous section Other postprocedural status Need for vaccination Need for prophylactic vaccination and inoculation against unspecified single disease Pre-existing diabetes mellitus in in second trimester ([facility]) Diabetes mellitus, antepartum Maternal iron deficiency anemia complicating , third trimester ([facility]) 32 weeks gestation of ([facility])- Primary state, incidental Pre-existing diabetes mellitus in in second trimester ([facility]) Diabetes mellitus, antepartum Previous section Other postprocedural status Anemia complicating , third trimester ([facility]) Supervision of high risk in third trimester ([facility])- Primary Unspecified high-risk Pre-existing diabetes mellitus in in third trimester ([facility]) Diabetes mellitus, antepartum Previous section Other postprocedural status Anemia complicating , third trimester ([facility]) Obesity during ([facility]) Supervision of high risk in third trimester ([facility])- Primary Unspecified high-risk Pre-existing diabetes mellitus in in third trimester ([facility]) Diabetes mellitus, antepartum Previous section Other postprocedural status Anemia complicating , third trimester ([facility]) Obesity during ([facility]) Rh negative state in antepartum period ([facility]) Rhesus isoimmunization affecting management of mother, antepartum condition 37 weeks gestation of ([facility]) state, incidental documented in this encounter [facility] for referral (narrative)* Diagnostic Procedure Only (Routine) - Authorized Specialty Diagnoses / Procedures Referred By Jaiden tamayo Referred To Contact [facility] Diagnoses Less than 8 weeks gestation of Procedures NUCHAL TRANSLUCENCY WHI US NUCHAL TRANSLUCENCY 1ST GESTATION Kati Rolle APRN.CNM [address] [place] [address] [address] Referral ID Status Reason Start Date Expiration Date Visits Requested Visits Authorized [id number] Authorized Auto-Generat ed Referral 08/03/2025 1 1 [facility] for referral (narrative)* Diagnostic Procedure Only (Routine) - Authorized Specialty Diagnoses / Procedures Referred By Contac t Referred To Contact [facility] Diagnoses Encounter for supervision of other normal in second trimester Procedures OBSTETRIC ULTRASOUND WHI US PREG UTERUS AFTER 1ST TRIMEST GESTATION Melissa Aguilera MD [address] [place] [address] [facility] [address] [place] [address] Referral ID Status Reason Start Date Expiration Date Visits Requested Visits Authorized [id number] Authorized Auto-Generat ed Referral 09/11/2025 1 1 [facility] for referral (narrative)* Diagnostic Procedure Only (Routine) - Authorized Specialty Diagnoses / Procedures Referred By Contac t Referred To Contact [facility] Diagnoses 14 weeks gestation of Procedures OBSTETRIC ULTRASOUND WHI US PREG UTERUS AFTER 1ST TRIMEST GESTATION Kati Rolle APRN.CNM [address] [place] [address] [facility] [address] [place] [address] Referral ID Status Reason Start Date Expiration Date Visits Requested Visits Authorized [id number] Authorized Auto-Generat ed Referral 09/17/2025 1 1 [facility] for referral (narrative)* Outpatient Procedure (Routine) - New Request Specialty Diagnoses / Procedures Referred By Contac t Referred To Contact [facility] Diagnoses Pre-existing type 2 diabetes mellitus during in first trimester Pre-existing diabetes mellitus in in second trimester Procedures ECHO Melissa Aguilera MD [address] [place] [address] [facility] [address] [place] [address] Referral ID Status Reason Start Date Expiration Date Visits Requested Visits Authorized [id number] New Request Auto-Generat ed Referral 10/09/2024 10/09/2025 1 1 * Consult, Test, Treat (Routine) - Authorized Specialty Diagnoses / Procedures Referred By Contac t Referred To Contact Endocrinology Diagnoses 17 weeks gestation of Pre-existing type 2 diabetes mellitus during in first trimester Procedures CONSULT TO ENDOCRINOLOGY OFFICE/OUTPATIENT [facility] 60 MINUTES Melissa Aguilera MD [address] [place] [address] Lalito Rocha, [address] [place] [address] Referral ID Status Reason Start Date Expiration Date Visits Requested Visits Authorized [id number] Authorized PCP Requested Referral 10/09/2024 10/09/2025 1 1 [facility]No reason for referral information availableWOhio [facility] Work Phone: Summary Purpose Family History No Family History [...] THERAPY MEDICAL NUTRITION ASSMT&IVNTJ INDIV EACH 15 OK Elba Khanna, JOSE.FURNACE STOCK INSPECTOR [address] [place] [address] Referral ID Status Reason Start Date Expiration Date Visits Requested Visits Authorized [id number] Authorized PCP Requested Referral 4 09/18/2025 1 4 Specialty Diagnoses / Procedures Referred By Contac t Referred To Contact Diagnoses Diet controlled gestational diabetes mellitus (GDM) in second trimester Procedures CONSULT TO DIABETES EDUCATION DSME MEDICAL NUTRITION ASSMT&IVNTJ INDIV EACH 15 [place] MEDICAL NUTRITION ASSMT&IVNTJ INDIV EACH 15 [place] MEDICAL NUTRITION ASSMT&IVNTJ INDIV EACH 15 OK MEDICAL NUTRITION ASSMT&IVNTJ INDIV EACH 15 OK Elba Khanna APRN.FURNACE STOCK INSPECTOR [address] [place] [address] Referral ID Status Reason Start Date Expiration Date Visits Requested Visits Authorized [id number] Authorized PCP Requested Referral 4 09/18/2025 1 1 Specialty Diagnoses / Procedures Referred By Contac t Referred To Contact [facility] Diagnoses Diet controlled gestational diabetes mellitus (GDM) in second trimester Procedures OBSTETRIC ULTRASOUND WHI US PREG UTERUS AFTER 1ST TRIMEST GESTATION Elba Khanna APRN.FURNACE STOCK INSPECTOR [address] [place] [address] [facility] [address] [place] [address] Referral ID Status Reason Start Date Expiration Date Visits Requested Visits Authorized [id number] Authorized Auto-Generat ed Referral 4 09/18/2025 5 1 Chief Complaint and Reason for Visit Chief Complaint Admit Date R/O LABOR February 24, 2025 4:23p m R/O SROM March 01, 2025 11:05 am Reason for Visit Admit Date 37 weeks gestation of February 4:23pm Cramping affecting , antepartum February 24, 2025 4:23pm Headache February 24, 2025 4:23p m History of delivery affecting p regnancy February 24, 2025 4:23pm Chief Complaint Admit Date R/O LABOR February 24, 2025 4:23p m Reason for Visit Admit Date 37 weeks gestation of February 4:23pm Cramping affecting , antepartum February 24, 2025 4:23pm Headache February 24, 2025 4:23p m History of delivery affecting p regnancy February 24, 2025 4:23pm 37 weeks gestation of February 11:05am False labor March 01, 2025 11:05 am History of delivery affecting p regnancy March 01, 2025 11:05am Pre-existing diabetes mellit us affecting in third trimester, March 01, 2025 11:05am Additional Source Comments INFORMATION SOURCE (unrecogn ized section and content) DATE CREATED AUTHOR 02/25/2020 [facility] DATE CREATED AUTHOR AUTHOR'S ORGANIZ ATION 11/12/2021 [facility] DATE CREATED AUTHOR AUTHOR'S ORGANIZ ATION 05/02/2022 [facility] DATE CREATED AUTHOR AUTHOR'S ORGANIZ ATION 05/18/2024 [facility] DATE CREATED AUTHOR AUTHOR'S ORGANIZ ATION 07/17/2024 [facility] DATE CREATED AUTHOR AUTHOR'S ORGANIZ ATION 11/12/2024 [facility] DATE CREATED AUTHOR AUTHOR'S ORGANIZ ATION 03/02/2025 [facility] DATE CREATED AUTHOR AUTHOR'S ORGANIZ ATION 03/03/2025 [facility] Source Comments (unrecognize d section and content) In the event this informatio n is protected by the Federal Confidentiality of Alcohol and Drug Abuse Patient Records regulations: The Federal rules restrict any use of the information to criminally investigate or prosecute any alcohol or drug abuse patient.[facility] the event this information is protected by the Federal Confidentiality of Alcohol and Drug Abuse Patient Records regulations: The Federal rules restrict any use of the information to criminally investigate or prosecute any alcohol or drug abuse patient.[facility] the event this information is protected by the Federal Confidentiality of Alcohol and Drug Abuse Patient Records regulations: The Federal rules restrict any use of the information to criminally investigate or prosecute any alcohol or drug abuse patient.[facility] the event this information is protected by the Federal Confidentiality of Alcohol and Drug Abuse Patient Records regulations: The Federal rules restrict any use of the information to criminally investigate or prosecute any alcohol or drug abuse patient.[facility] the event this information is protected by the Federal Confidentiality of Alcohol and Drug Abuse Patient Records regulations: The Federal rules restrict any use of the information to criminally investigate or prosecute any alcohol or drug abuse patient.[facility] the event this information is protected by the Federal Confidentiality of Alcohol and Drug Abuse Patient Records regulations: The Federal rules restrict any use of the information to criminally investigate or prosecute any alcohol or drug abuse patient.[facility] the event this information is protected by the Federal Confidentiality of Alcohol and Drug Abuse Patient Records regulations: The Federal rules restrict any use of the information to criminally investigate or prosecute any alcohol or drug abuse patient.[facility] the event this information is protected by the Federal Confidentiality of Alcohol and Drug Abuse Patient Records regulations: The Federal rules restrict any use of the information to criminally investigate or prosecute any alcohol or drug abuse patient.[facility] the event this information is protected by the Federal Confidentiality of Alcohol and Drug Abuse Patient Records regulations: The Federal rules restrict any use of the information to criminally investigate or prosecute any alcohol or drug abuse patient.[facility] the event this information is protected by the Federal Confidentiality of Alcohol and Drug Abuse Patient Records regulations: The Federal rules restrict any use of the information to criminally investigate or prosecute any alcohol or drug abuse patient.[facility] the event this information is protected by the Federal Confidentiality of Alcohol and Drug Abuse Patient Records regulations: The Federal rules restrict any use of the information to criminally investigate or prosecute any alcohol or drug abuse patient.[facility] the event this information is protected by the Federal Confidentiality of Alcohol and Drug Abuse Patient Records regulations: The Federal rules restrict any use of the information to criminally investigate or prosecute any alcohol or drug abuse patient.[facility] the event this information is protected by the Federal Confidentiality of Alcohol and Drug Abuse Patient Records regulations: The Federal rules restrict any use of the information to criminally investigate or prosecute any alcohol or drug abuse patient.[facility] the event this information is protected by the Federal Confidentiality of Alcohol and Drug Abuse Patient Records regulations: The Federal rules restrict any use of the information to criminally investigate or prosecute any alcohol or drug abuse patient.[facility] the event this information is protected by the Federal Confidentiality of Alcohol and Drug Abuse Patient Records regulations: The Federal rules restrict any use of the information to criminally investigate or prosecute any alcohol or drug abuse patient.[facility] HospitalIn the event this information is protected by the Federal Confidentiality of Alcohol and Drug Abuse Patient Records regulations: The Federal rules restrict any use of the information to criminally investigate or prosecute any alcohol or drug abuse patient.[facility] HospitalIn the event this information is protected by the Federal Confidentiality of Alcohol and Drug Abuse Patient Records regulations: The Federal rules restrict any use of the information to criminally investigate or prosecute any alcohol or drug abuse patient.[facility] HospitalIn the event this information is protected by the Federal Confidentiality of Alcohol and Drug Abuse Patient Records regulations: The Federal rules restrict any use of the information to criminally investigate or prosecute any alcohol or drug abuse patient.[facility] HospitalIn the event this information is protected by the Federal Confidentiality of Alcohol and Drug Abuse Patient Records regulations: The Federal rules restrict any use of the information to criminally investigate or prosecute any alcohol or drug abuse patient.[facility] HospitalIn the event this information is protected by the Federal Confidentiality of Alcohol and Drug Abuse Patient Records regulations: The Federal rules restrict any use of the information to criminally investigate or prosecute any alcohol or drug abuse patient.[facility] HospitalIn the event this information is protected by the Federal Confidentiality of Alcohol and Drug Abuse Patient Records regulations: The Federal rules restrict any use of the information to criminally investigate or prosecute any alcohol or drug abuse patient.[facility] HospitalIn the event this information is protected by the Federal Confidentiality of Alcohol and Drug Abuse Patient Records regulations: The Federal rules restrict any use of the information to criminally investigate or prosecute any alcohol or drug abuse patient.[facility] HospitalIn the event this information is protected by the Federal Confidentiality of Alcohol and Drug Abuse Patient Records regulations: The Federal rules restrict any use of the information to criminally investigate or prosecute any alcohol or drug abuse patient.[facility] HospitalIn the event this information is protected by the Federal Confidentiality of Alcohol and Drug Abuse Patient Records regulations: The Federal rules restrict any use of the information to criminally investigate or prosecute any alcohol or drug abuse patient.[facility] HospitalIn the event this information is protected by the Federal Confidentiality of Alcohol and Drug Abuse Patient Records regulations: The Federal rules restrict any use of the information to criminally investigate or prosecute any alcohol or drug abuse patient.[facility] HospitalIn the event this information is protected by the Federal Confidentiality of Alcohol and Drug Abuse Patient Records regulations: The Federal rules restrict any use of the information to criminally investigate or prosecute any alcohol or drug abuse patient.[facility] HospitalIn the event this information is protected by the Federal Confidentiality of Alcohol and Drug Abuse Patient Records regulations: The Federal rules restrict any use of the information to criminally investigate or prosecute any alcohol or drug abuse patient.[facility] HospitalIn the event this information is protected by the Federal Confidentiality of Alcohol and Drug Abuse Patient Records regulations: The Federal rules restrict any use of the information to criminally investigate or prosecute any alcohol or drug abuse patient.[facility] HospitalIn the event this information is protected by the Federal Confidentiality of Alcohol and Drug Abuse Patient Records regulations: The Federal rules restrict any use of the information to criminally investigate or prosecute any alcohol or drug abuse patient.[facility] HospitalIn the event this information is protected by the Federal Confidentiality of Alcohol and Drug Abuse Patient Records regulations: The Federal rules restrict any use of the information to criminally investigate or prosecute any alcohol or drug abuse patient.[facility] HospitalIn the event this information is protected by the Federal Confidentiality of Alcohol and Drug Abuse Patient Records regulations: The Federal rules restrict any use of the information to criminally investigate or prosecute any alcohol or drug abuse patient.[facility] HospitalIn the event this information is protected by the Federal Confidentiality of Alcohol and Drug Abuse Patient Records regulations: The Federal rules restrict any use of the information to criminally investigate or prosecute any alcohol or drug abuse patient.[facility] HospitalIn the event this information is protected by the Federal Confidentiality of Alcohol and Drug Abuse Patient Records regulations: The Federal rules restrict any use of the information to criminally investigate or prosecute any alcohol or drug abuse patient.[facility] HospitalIn the event this information is protected by the Federal Confidentiality of Alcohol and Drug Abuse Patient Records regulations: The Federal rules restrict any use of the information to criminally investigate or prosecute any alcohol or drug abuse patient.[facility] HospitalIn the event this information is protected by the Federal Confidentiality of Alcohol and Drug Abuse Patient Records regulations: The Federal rules restrict any use of the information to criminally investigate or prosecute any alcohol or drug abuse patient.[facility] HospitalIn the event this information is protected by the Federal Confidentiality of Alcohol and Drug Abuse Patient Records regulations: The Federal rules restrict any use of the information to criminally investigate or prosecute any alcohol or drug abuse patient.[facility] HospitalIn the event this information is protected by the Federal Confidentiality of Alcohol and Drug Abuse Patient Records regulations: The Federal rules restrict any use of the information to criminally investigate or prosecute any alcohol or drug abuse patient.[facility] HospitalIn the event this information is protected by the Federal Confidentiality of Alcohol and Drug Abuse Patient Records regulations: The Federal rules restrict any use of the information to criminally investigate or prosecute any alcohol or drug abuse patient.[facility] HospitalIn the event this information is protected by the Federal Confidentiality of Alcohol and Drug Abuse Patient Records regulations: The Federal rules restrict any use of the information to criminally investigate or prosecute any alcohol or drug abuse patient.[facility] HospitalIn the event this information is protected by the Federal Confidentiality of Alcohol and Drug Abuse Patient Records regulations: The Federal rules restrict any use of the information to criminally investigate or prosecute any alcohol or drug abuse patient.[facility] HospitalIn the event this information is protected by the Federal Confidentiality of Alcohol and Drug Abuse Patient Records regulations: The Federal rules restrict any use of the information to criminally investigate or prosecute any alcohol or drug abuse patient.[facility] HospitalIn the event this information is protected by the Federal Confidentiality of Alcohol and Drug Abuse Patient Records regulations: The Federal rules restrict any use of the information to criminally investigate or prosecute any alcohol or drug abuse patient.[facility] HospitalIn the event this information is protected by the Federal Confidentiality of Alcohol and Drug Abuse Patient Records regulations: The Federal rules restrict any use of the information to criminally investigate or prosecute any alcohol or drug abuse patient.[facility] HospitalIn the event this information is protected by the Federal Confidentiality of Alcohol and Drug Abuse Patient Records regulations: The Federal rules restrict any use of the information to criminally investigate or prosecute any alcohol or drug abuse patient.[facility] HospitalIn the event this information is protected by the Federal Confidentiality of Alcohol and Drug Abuse Patient Records regulations: The Federal rules restrict any use of the information to criminally investigate or prosecute any alcohol or drug abuse patient.[facility] HospitalIn the event this information is protected by the Federal Confidentiality of Alcohol and Drug Abuse Patient Records regulations: The Federal rules restrict any use of the information to criminally investigate or prosecute any alcohol or drug abuse patient.[facility] HospitalIn the event this information is protected by the Federal Confidentiality of Alcohol and Drug Abuse Patient Records regulations: The Federal rules restrict any use of the information to criminally investigate or prosecute any alcohol or drug abuse patient.[facility] HospitalIn the event this information is protected by the Federal Confidentiality of Alcohol and Drug Abuse Patient Records regulations: The Federal rules restrict any use of the information to criminally investigate or prosecute any alcohol or drug abuse patient.[facility] HospitalIn the event this information is protected by the Federal Confidentiality of Alcohol and Drug Abuse Patient Records regulations: The Federal rules restrict any use of the information to criminally investigate or prosecute any alcohol or drug abuse patient.[facility] HospitalIn the event this information is protected by the Federal Confidentiality of Alcohol and Drug Abuse Patient Records regulations: The Federal rules restrict any use of the information to criminally investigate or prosecute any alcohol or drug abuse patient.[facility] HospitalIn the event this information is protected by the Federal Confidentiality of Alcohol and Drug Abuse Patient Records regulations: The Federal rules restrict any use of the information to criminally investigate or prosecute any alcohol or drug abuse patient.[facility] HospitalIn the event this information is protected by the Federal Confidentiality of Alcohol and Drug Abuse Patient Records regulations: The Federal rules restrict any use of the information to criminally investigate or prosecute any alcohol or drug abuse patient.[facility] HospitalIn the event this information is protected by the Federal Confidentiality of Alcohol and Drug Abuse Patient Records regulations: The Federal rules restrict any use of the information to criminally investigate or prosecute any alcohol or drug abuse patient.[facility] the event this information is protected by the Federal Confidentiality of Alcohol and Drug Abuse Patient Records regulations: The Federal rules restrict any use of the information to criminally investigate or prosecute any alcohol or drug abuse patient.[facility] HospitalIn the event this information is protected by the Federal Confidentiality of Alcohol and Drug Abuse Patient Records regulations: The Federal rules restrict any use of the information to criminally investigate or prosecute any alcohol or drug abuse patient.[facility] HospitalIn the event this information is protected by the Federal Confidentiality of Alcohol and Drug Abuse Patient Records regulations: The Federal rules restrict any use of the information to criminally investigate or prosecute any alcohol or drug abuse patient.[facility]In the event this information is protected by the Federal Confidentiality of Alcohol and Drug Abuse Patient Records regulations: The Federal rules restrict any use of the information to criminally investigate or prosecute any alcohol or drug abuse patient.[facility] HospitalIn the event this information is protected by the Federal Confidentiality of Alcohol and Drug Abuse Patient Records regulations: The Federal rules restrict any use of the information to criminally investigate or prosecute any alcohol or drug abuse patient.[facility] HospitalIn the event this information is protected by the Federal Confidentiality of Alcohol and Drug Abuse Patient Records regulations: The Federal rules restrict any use of the information to criminally investigate or prosecute any alcohol or drug abuse patient.[facility] HospitalIn the event this information is protected by the Federal Confidentiality of Alcohol and Drug Abuse Patient Records regulations: The Federal rules restrict any use of the information to criminally investigate or prosecute any alcohol or drug abuse patient.[facility] HospitalIn the event this information is protected by the Federal Confidentiality of Alcohol and Drug Abuse Patient Records regulations: The Federal rules restrict any use of the information to criminally investigate or prosecute any alcohol or drug abuse patient.[facility] HospitalIn the event this information is protected by the Federal Confidentiality of Alcohol and Drug Abuse Patient Records regulations: The Federal rules restrict any use of the information to criminally investigate or prosecute any alcohol or drug abuse patient.[facility] HospitalIn the event this information is protected by the Federal Confidentiality of Alcohol and Drug Abuse Patient Records regulations: The Federal rules restrict any use of the information to criminally investigate or prosecute any alcohol or drug abuse patient.[facility] HospitalIn the event this information is protected by the Federal Confidentiality of Alcohol and Drug Abuse Patient Records regulations: The Federal rules restrict any use of the information to criminally investigate or prosecute any alcohol or drug abuse patient.[facility] HospitalIn the event this information is protected by the Federal Confidentiality of Alcohol and Drug Abuse Patient Records regulations: The Federal rules restrict any use of the information to criminally investigate or prosecute any alcohol or drug abuse patient.[facility] HospitalIn the event this information is protected by the Federal Confidentiality of Alcohol and Drug Abuse Patient Records regulations: The Federal rules restrict any use of the information to criminally investigate or prosecute any alcohol or drug abuse patient.[facility] HospitalIn the event this information is protected by the Federal Confidentiality of Alcohol and Drug Abuse Patient Records regulations: The Federal rules restrict any use of the information to criminally investigate or prosecute any alcohol or drug abuse patient.[facility] HospitalIn the event this information is protected by the Federal Confidentiality of Alcohol and Drug Abuse Patient Records regulations: The Federal rules restrict any use of the information to criminally investigate or prosecute any alcohol or drug abuse patient.[facility] HospitalIn the event this information is protected by the Federal Confidentiality of Alcohol and Drug Abuse Patient Records regulations: The Federal rules restrict any use of the information to criminally investigate or prosecute any alcohol or drug abuse patient.[facility] HospitalIn the event this information is protected by the Federal Confidentiality of Alcohol and Drug Abuse Patient Records regulations: The Federal rules restrict any use of the information to criminally investigate or prosecute any alcohol or drug abuse patient.[facility] HospitalIn the event this information is protected by the Federal Confidentiality of Alcohol and Drug Abuse Patient Records regulations: The Federal rules restrict any use of the information to criminally investigate or prosecute any alcohol or drug abuse patient.[facility] HospitalIn the event this information is protected by the Federal Confidentiality of Alcohol and Drug Abuse Patient Records regulations: The Federal rules restrict any use of the information to criminally investigate or prosecute any alcohol or drug abuse patient.[facility] HospitalIn the event this information is protected by the Federal Confidentiality of Alcohol and Drug Abuse Patient Records regulations: The Federal rules restrict any use of the information to criminally investigate or prosecute any alcohol or drug abuse patient.[facility] HospitalIn the event this information is protected by the Federal Confidentiality of Alcohol and Drug Abuse Patient Records regulations: The Federal rules restrict any use of the information to criminally investigate or prosecute any alcohol or drug abuse patient.[facility] HospitalIn the event this information is protected by the Federal Confidentiality of Alcohol and Drug Abuse Patient Records regulations: The Federal rules restrict any use of the information to criminally investigate or prosecute any alcohol or drug abuse patient.[facility] HospitalIn the event this information is protected by the Federal Confidentiality of Alcohol and Drug Abuse Patient Records regulations: The Federal rules restrict any use of the information to criminally investigate or prosecute any alcohol or drug abuse patient.[facility] HospitalIn the event this information is protected by the Federal Confidentiality of Alcohol and Drug Abuse Patient Records regulations: The Federal rules restrict any use of the information to criminally investigate or prosecute any alcohol or drug abuse patient.[facility] HospitalIn the event this information is protected by the Federal Confidentiality of Alcohol and Drug Abuse Patient Records regulations: The Federal rules restrict any use of the information to criminally investigate or prosecute any alcohol or drug abuse patient.[facility] HospitalIn the event this information is protected by the Federal Confidentiality of Alcohol and Drug Abuse Patient Records regulations: The Federal rules restrict any use of the information to criminally investigate or prosecute any alcohol or drug abuse patient.[facility] HospitalIn the event this information is protected by the Federal Confidentiality of Alcohol and Drug Abuse Patient Records regulations: The Federal rules restrict any use of the information to criminally investigate or prosecute any alcohol or drug abuse patient.[facility] HospitalIn the event this information is protected by the Federal Confidentiality of Alcohol and Drug Abuse Patient Records regulations: The Federal rules restrict any use of the information to criminally investigate or prosecute any alcohol or drug abuse patient.[facility] HospitalIn the event this information is protected by the Federal Confidentiality of Alcohol and Drug Abuse Patient Records regulations: The Federal rules restrict any use of the information to criminally investigate or prosecute any alcohol or drug abuse patient.[facility] HospitalIn the event this information is protected by the Federal Confidentiality of Alcohol and Drug Abuse Patient Records regulations: The Federal rules restrict any use of the information to criminally investigate or prosecute any alcohol or drug abuse patient.[facility] Reason for Visit (unrecogniz ed section [...] late Reason Comments Cough Chest congestion, na erine congestion, fever, sinus pressure, sore throat x 1 week Reason Comments Initial OB Visit Reason Comments PRAF Reason Comments Cough Congestion, sinus pr essure x 3 days Reason Comments Cough Cough, congestion x 1 week and goopy eyes x 3 days Reason Onset Date Comments Care 09/11/2024 Reason Comments US Specialty Diagnoses / Procedures Referred By Contac t Referred To Contact [facility] Diagnoses Less than 8 weeks gestation of Procedures NUCHAL TRANSLUCENCY WHI US NUCHAL TRANSLUCENCY 1ST GESTATION Kati Rolle, BRICK MOLDER HAND.CNM [address] [place] [address] [facility] [address] [place] [address] Referral ID Status Reason Start Date Expiration Date V isits Requested Visits Authorized [id number] Closed Auto-Generate d Referral 08/03/2024 08/03/2025 1 1 Reason Comments Results Reason Comments Gestational Diabetes Specialty Diagnoses / Procedures Referred By Contac t Referred To Contact Diagnoses Diet controlled gestational diabetes mellitus (GDM) in second trimester Procedures CONSULT TO DIABETES EDUCATION DSME MEDICAL NUTRITION ASSMT&IVNTJ INDIV EACH 15 [place] MEDICAL NUTRITION ASSMT&IVNTJ INDIV EACH 15 [place] MEDICAL NUTRITION ASSMT&IVNTJ INDIV EACH 15 [place] MEDICAL NUTRITION ASSMT&IVNTJ INDIV EACH 15 OK Elba Khanna, BRICK MOLDER HAND.FURNACE STOCK INSPECTOR [address] [place] [address] Referral ID Status Reason Start Date Expiration Date V isits Requested Visits Authorized [id number] Closed PCP Requested Referral 09/18/2024 09/18/2025 1 1 Specialty Diagnoses / Procedures Referred By Contac t Referred To Contact [facility] Diagnoses 14 weeks gestation of Procedures OBSTETRIC ULTRASOUND WHI US PREG UTERUS AFTER 1ST TRIMEST GESTATION Kati Rolle APRN.CNM [address] [place] [address] [address] Referral ID Status Reason Start Date Expiration Date V isits Requested Visits Authorized [id number] Closed Auto-Generate d Referral 09/17/2024 09/17/2025 1 1 Reason Onset Date Comments Care 10/09/2024 Reason Comments Sinus Problem sinus pressure, drai nage, cough and headache x 9 days Reason Comments Gestational Diabetes Reason Comments Blood Sugar Reading Reason Onset Date Comments Care 11/06/2024 Specialty Diagnoses / Procedures Referred By Contac t Referred To Contact 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 Diagnoses Diet controlled gestational diabetes mellitus (GDM) in second trimester Procedures OBSTETRIC ULTRASOUND WHI US PREG UTERUS AFTER 1ST TRIMEST GESTATION Elba Khanna APRN.FURNACE STOCK INSPECTOR [address] [place] [address] Phone: tel: fax: [address] [phone] Referral ID Status Reason Start Date Expiration Date V isits Requested Visits Authorized [id number] Closed Auto-Generate d Referral 09/18/2024 09/18/2025 5 1 Reason Onset Date Comments Care 12/03/2024 Reason Comments Breast Pump Reason Onset Date Comments Care 12/25/2024 Specialty Diagnoses / Procedures Referred By Contac t Referred To Contact [facility] Diagnoses Diet controlled gestational diabetes mellitus (GDM) in second trimester (HCC) Procedures OBSTETRIC ULTRASOUND WHI US PREG UTERUS AFTER 1ST TRIMEST GESTATION Elba Khanna, JOSE.FURNACE STOCK INSPECTOR [address] [place] [address] Phone: tel: fax:[phone] [address] Reason Comments Blood Management Reason Onset Date Comments Care 01/07/2025 Reason Comments Non-Chemotherapy Treatment Specialty Diagnoses / Procedures Referred By Contac t Referred To Contact Diagnoses Maternal iron deficiency anemia complicating , third trimester (HCC) Procedures IRON SUCROSE INJECTION PER 1 MG Alfred Arcos MD [address] [place] [address] Phone: tel: fax: Alfred Arcos MD [address] [place] [address] Phone: tel: fax:[phone] Referral ID Status Reason Start Date Expiration Date V isits Requested Visits Authorized [id number] Authorized 12/30/2024 09/22/2025 99 99 Reason Comments Follow Up Gestational Diabetes Reason Onset Date Comments Care 01/22/2025 Specialty Diagnoses / Procedures Referred By Contac t Referred To Contact [facility] Diagnoses Pre-existing diabetes mellitus in in second trimester ([facility]) Procedures OBSTETRIC ULTRASOUND WHI US PREG UTERUS AFTER 1ST TRIMEST GESTATION Alfred Arcos MD [address] [place] [address] Phone: tel: fax:[phone] [facility] [address] [place] [address] Referral ID Status Reason Start Date Expiration Date V isits Requested Visits Authorized [id number] Closed Auto-Generate d Referral 01/22/2025 01/22/2026 6 1 Reason Onset Date Comments Care 01/28/2025 Reason Onset Date Comments Care 02/04/2025 Reason Onset Date Comments Care 02/19/2025 Reason Comments Patient Update Reason Onset Date Comments Care 02/26/2025 Reason Comments Possible SROM. C/S 03/05 Reason Onset Date Comments Care 03/02/2025 Care Teams (unrecognized sec tion and content) Resident Advisor Relationship Specialty Start Date End Date Carla Correia PA-C [address] [place] [address] PCP - General Family Medicine 07/24/24 Resident Advisor Relationship Specialty Start Date End Date Carla Correia PA-C [address] [place] [address] PCP - General Family Medicine 07/24/24 Resident Advisor Relationship Specialty Start Date End Date Carla Correia PA-C [address] [place] [address] PCP - General Family Medicine 07/24/24 Resident Advisor Relationship Specialty Start Date End Date Carla Correia PA-C [address] [place] [address] PCP - General Family Medicine 07/24/24 Resident Advisor Relationship Specialty Start Date End Date Carla Correia PA-C [address] [place] [address] PCP - General Family Medicine 07/24/24 Resident Advisor Relationship Specialty Start Date End Date Carla Correia PA-C [address] [place] [address] PCP - General Family Medicine 07/24/24 Resident Advisor Relationship Specialty Start Date End Date Carla Correia PA-C [address] [place] [address] PCP - General Family Medicine 07/24/24 Resident Advisor Relationship Specialty Start Date End Date Carla Correia PA-C [address] [place] [address] PCP - General Family Medicine 07/24/24 Resident Advisor Relationship Specialty Start Date End Date Carla Correia PA-C [address] [place] [address] PCP - General Family Medicine 07/24/24 Resident Advisor Relationship Specialty Start Date End Date Carla Correia PA-C [address] [place] [address] PCP - General Family Medicine 07/24/24 Resident Advisor Relationship Specialty Start Date End Date Carla Correia PA-C [address] [place] [address] PCP - General Family Medicine 07/24/24 Resident Advisor Relationship Specialty Start Date End Date Carla Correia PA-C [address] [place] [address] PCP - General Family Medicine 07/24/24 Resident Advisor Relationship Specialty Start Date End Date Carla Correia PA-C [address] [place] [address] PCP - General Family Medicine 07/24/24 Resident Advisor Relationship Specialty Start Date End Date Carla Correia PA-C [address] [place] [address] PCP - General Family Medicine 07/24/24 Resident Advisor Relationship Specialty Start Date End Date Carla Correia PA-C [address] [place] [address] PCP - General Family Medicine 07/24/24 Resident Advisor Relationship Specialty Start Date End Date Carla Correia PA-C [address] [place] [address] PCP - General Family Medicine 07/24/24 Resident Advisor Relationship Specialty Start Date End Date Carla Correia PA-C [address] [place] [address] PCP - General Family Medicine 07/24/24 Resident Advisor Relationship Specialty Start Date End Date Carla Correia PA-C [address] [place] [address] PCP - General Family Medicine 07/24/24 Resident Advisor Relationship Specialty Start Date End Date Carla Correia PA-C [address] [place] [address] PCP - General Family Medicine 07/24/24 Resident Advisor Relationship Specialty Start Date End Date Carla Correia PA-C [address] [place] [address] PCP - General Family Medicine 07/24/24 Resident Advisor Relationship Specialty Start Date End Date Carla Correia PA-C [address] [place] [address] PCP - General Family Medicine 07/24/24 Resident Advisor Relationship Specialty Start Date End Date Carla Correia PA-C [address] [place] [address] PCP - General Family Medicine 07/24/24 Resident Advisor Relationship Specialty Start Date End Date Carla Correia PA-C [address] [place] [address] PCP - General Family Medicine 07/24/24 Resident Advisor Relationship Specialty Start Date End Date Carla Correia PA-C [address] [place] [address] PCP - General Family Medicine 07/24/24 Resident Advisor Relationship Specialty Start Date End Date Carla Correia PA-C [address] [place] [address] PCP - General Family Medicine 07/24/24 Resident Advisor Relationship Specialty Start Date End Date Carla Correia PA-C [address] [place] [address] PCP - General Family Medicine 07/24/24 Resident Advisor Relationship Specialty Start Date End Date Carla Correia PA-C [address] [place] [address] PCP - General Family Medicine 07/24/24 Resident Advisor Relationship Specialty Start Date End Date Carla Correia PA-C [address] [place] [address] PCP - General Family Medicine 07/24/24 Resident Advisor Relationship Specialty Start Date End Date Carla Correia PA-C [address] [place] [address] PCP - General Family Medicine 07/24/24 Resident Advisor Relationship Specialty Start Date End Date Carla Correia PA-C [address] [place] [address] PCP - General Family Medicine 07/24/24 Resident Advisor Relationship Specialty Start Date End Date Carla Correia PA-C [address] [place] [address] PCP - General Family Medicine 07/24/24 Resident Advisor Relationship Specialty Start Date End Date Carla Correia PA-C [address] [place] [address] PCP - General Family Medicine 07/24/24 Resident Advisor Relationship Specialty Start Date End Date Carla Correia PA-C [address] [place] [address] PCP - General Family Medicine 07/24/24 Resident Advisor Relationship Specialty Start Date End Date Carla Correia PA-C [address] [place] [address] PCP - General Family Medicine 07/24/24 Resident Advisor Relationship Specialty Start Date End Date Carla Correia PA-C [address] [place] [address] PCP - General Family Medicine 07/24/24 Resident Advisor Relationship Specialty Start Date End Date Carla Correia PA-C [address] [place] [address] PCP - General Family Medicine 07/24/24 Resident Advisor Relationship Specialty Start Date End Date Carla Correia PA-C [address] [place] [address] PCP - General Family Medicine 07/24/24 Resident Advisor Relationship Specialty Start Date End Date Carla Correia PA-C [address] [place] [address] PCP - General Family Medicine 07/24/24 Resident Advisor Relationship Specialty Start Date End Date Carla Correia PA-C [address] [place] [address] PCP - General Family Medicine 07/24/24 Resident Advisor Relationship Specialty Start Date End Date Carla Correia PA-C [address] [place] [address] PCP - General Family Medicine 07/24/24 Resident Advisor Relationship Specialty Start Date End Date Carla Correia PA-C [address] [place] [address] PCP - General Family Medicine 07/24/24 Resident Advisor Relationship Specialty Start Date End Date Carla Correia PA-C [address] [place] [address] PCP - General Family Medicine 07/24/24 Resident Advisor Relationship Specialty Start Date End Date Carla Correia PA-C [address] [place] [address] PCP - General Family Medicine 07/24/24 Resident Advisor Relationship Specialty Start Date End Date Carla Correia PA-C [address] [place] [address] PCP - General Family Medicine 07/24/24 Team Status: Active Member Role Status Dates No Primary Care Physician Primary Care Provider Active Team Status: Inactive Member Role Status Dates No Primary Care Physician Primary Care Provider Active Start: February 24, 2025 End: February 24, 2025 Dr. Mayra Cam MD Attending Provider Ac tive Start: February 24, 2025 End: February 24, 2025 Dr. Mayra Cam MD Referring Provider Ac tive Start: February 24, 2025 End: February 24, 2025 Team Status: Inactive Member Role Status Dates No Primary Care Physician Primary Care Provider Active Start: March 01, 2025 End: March 01, 2025 Dr. Mayra Cam MD Attending Provider Ac tive Start: March 01, 2025 End: March 01, 2025 Dr. Mayra Cam MD Referring Provider Ac tive Start: March 01, 2025 End: March 01, 2025 Resident Advisor Relationship Specialty Start Date End Date Carla Correia PA-C [address] [facility] [address] [place] [address] PCP - General Family Medicine 07/24/24 Goals (unrecognized section and content) Goals may be documented in a n alternate sectionGoals may be documented in an alternate sectionGoals may be documented in an alternate section FOR RECORDS PERTAINING TO PATIENTS WHO ARE [...] BE BASED ON THE PRIMARY CLINICAL RECORDS. [facility] [employer] provides no warranty or guarantee of the accuracy or completeness of information in this document.
[2025-03-05] MEDS: Lactated Ringers 1,000 ML 999 ML IV (05:50)
[2025-03-05 06:07] LABS: Absolute Lymphocyte Count 2.01 X10^3/uL (0.83-4.51); Basophil# 0.03 X10^3/uL; Basophil% 0.4 % (0-1); Eosinophil# 0.12 X10^3/uL; Eosinophils% 1.6 % (0-5); Hematocrit 30.4 % (37-47); Hemoglobin 9.9 g/dL (12.0-15.0); Lymphocyte # 2.01 X10^3/ul (0.83-4.51); Lymphocyte % 26.2 % (19-41); Mean Corp Hgb Conc 32.6 g/dL (32-36); Mean Corpuscular Hgb 30.9 pg (27.0-32.0); Mean Platelet Vol. 11.3 fl (6.2-12.0); Monocyte# 0.48 X10^3/uL; Monocyte% 6.3 % (0-10); NRBC Flagged by Analyzer 0 % (0-5); Neutrophil # 4.99 X10^3/uL (2.7-7.7); Neutrophil % 65.1 % (47-70); Platelet Count 249 K/mm3 (150-450); RBC Distribution Width CV 16.3 % (11.6-14.6); RBC Distribution Width SD 56.5 fl (35.1-43.9); White Blood Count 7.7 K/mm3 (4.4-11.0)
--- OUTSIDE RECORDS SUMMARY | 2025-03-05 06:22 | XMS RPT_ITS | CCD ---
Author Organization [facility] CliniSyma Care Team Providers Care Ichthyology Teacher Name Role Phone Unavailable Primary Care Provider [...] Carla Correia PA-C Primary Care Provider [phone] CARLA CORREIA Primary Care Unavailable MELISSA AGUILERA Referring Unavailable EDIE MAYER Attending Unavailable CARLA CORREIA Primary Care Unavailable Care Physician, No Primary Primary Care Provider Unavailable Tutu NICOLAS, Dr. Nunez Attending Provid er Dr. Mayra Cma MD Referring Provid er Mayra Cam Attending [...] Physician, No Primary Primary Care Unava ilable MEDON, CARLA D Primary Care Unavailable LALITO ROCHA Attending Unavailable MEDON, CARLA D Primary Care Unavailable MELISSA AGUILERA Referring Unavailable MEDON, CARLA D Primary Care Unavailable ALFRED ARCOS Attending Unavailable MEDON, CARLA D Primary Care Unavailable MEDON, CARLA D Primary Care Unavailable MAYRA FREY Attending Unavail able MEDON, CARLA D Primary Care Unavailable LALITO ROCHA Attending Unavailable MEDON, CARLA D Primary Care Unavailable LALITO ROCHA Attending Unavailable MEDON, CARLA D Primary Care Unavailable MELISSA AGUILERA Attending Unavailable MEDON, CARLA D Primary Care Unavailable GEE CARLIN Referring Unavailable MEDON, CARLA D Primary Care Unavailable ALFRED ARCOS Referring Unavailable MEDON, CARLA D Primary Care Unavailable ELBA KHANNA Referring Unavailable MEDON, CARLA D Primary Care Unavailable ALFRED ARCOS Attending Unavailable ELBA KHANNA Referring Unavailable MEDON, CARLA D Primary Care Unavailable PLOTKATI CASTLE Referring Unavailable MEDON, CARLA D Primary Care Unavailable KATI ROLLE Referring Unavailable MEDON, CARLA D Primary Care Unavailable ELBA KHANNA Referring Unavailable MEDON, CARLA D Primary Care Unavailable ALFRED ARCOS Attending Unavailable HAELBA HORTON Referring Unavailable MEDON, CARLA D Primary Care Unavailable KATI ROLLE Referring Unavailable MEDON, CARLA D Primary Care Unavailable ALFRED ARCOS Referring Unavailable MEDON, CARLA D Primary Care Unavailable ALFRED ARCOS Referring Unavailable MEDON, CARLA D Primary Care Unavailable KATI ROLLE Attending Unavailable MEDON, CARLA D Primary Care Unavailable MELISSA AGUILERA Attending Unavailable MEDON, CARLA D Primary Care Unavailable ALFRED ARCOS Referring Unavailable MEDON, CARLA D Primary Care Unavailable WOODY BASS Attending Unavailable MEDON, CARLA D Primary Care Unavailable ALFRED ARCOS Referring Unavailable MEDON, CARLA D Primary Care Unavailable ALFRED ARCOS Attending Unavailable ALFRED ARCOS Referring Unavailable MEDON, CARLA D Primary Care Unavailable MEDON, CARLA D Primary Care Unavailable MEDON, CARLA D Primary Care Unavailable PLOTKATI CASTLE Referring Unavailable MEDON, CARLA D Primary Care Unavailable HAURY, ELBA Referring Unavailable MEDON, CARLA D Primary Care Unavailable YONG MEDEROS Referring Unavailable MEDON, CARLA D Primary Care Unavailable HAURY, ELBA [...] sources) Cephalexin; Translations: [CEPHALEXIN] Drug Allergy 05-01-[address] [facility] (1 source) Cephalexin Drug Allergy [facility] Repository (1 source) Cephalexin Drug Allergy 03-01-2025 [facility] Repository Medications Current Medications Medication Drug Class(es) Dates Sig (Normalized) Sig (Original) [id number] 200 actuat albuterol 0.09 mg/actuat metered dose [...] Indications: with uncertain dates in first trimester ([facility]) , Previous delivery affecting , antepartum ([facility]) Take 1 tablet by mouth once daily. [...] gestational diabetes mellitus (GDM) in second trimester ([facility]) Use as directed to check glucose levels [...] Indications: Acute non-recurrent frontal sinusitis Use 1 [place] in each nostril once daily. 1 Each [...] nausea). 30 tablet 02/04/2025 Active polymyxin b 41567 unt/ml / trimethoprim 1 mg/ml ophthalmic solution [...] of ; Translations: [32 weeks gestation of ([facility])] Onset: 01-22-2025 Episodic Residual codes; unclassified (1 source) 30 weeks gestation of ; Translations: [30 weeks gestation of ([facility])] Onset: 01-07-2025 Episodic Residual codes; unclassified (1 source) 25 weeks gestation of ; Translations: [25 weeks gestation of ([facility])] Onset: 12-25-2024 Episodic Unclassified (20 sources) [facility] [...] B/Oon Glucose Ql (U) Negative Neg mg/dL [facility] Interpretation and review of laboratory results Normal [facility] Protein.monoclonal (U) [Mass/Vol] Negative Neg mg/dL [facility] (ROM) Rupture Of Membraneson 03-01-2025 ROM Negative Normal Negative [facility] Comment on above: Result Comment: Amni otic fluid not present indicates No Rupture of Membranes at time of specimen collection. Performed By: #### L 400.0001 #### [facility] [address] [place], [address] ROM Negative Normal Negative [facility] Comment on above: Result Comment: Amni otic fluid not present indicates No Rupture of Membranes at time of specimen collection. Performed By: #### L 205.1000 #### [facility] [address] [place], [address] Bilirubin Test strip Ql (U)O rdered By: Mayra Cam on 03-01-2025 Bilirubin Ql (U) Negative Negative [facility] CNPNon 03-01-2025 CNPN Telephone (OBGYWM) ----- VAL RUIZ ([id number]) 2000 F Date Time Provider Department 03/01/25 [...] C/S on Saturday. Recommended patient go to [facility] since she continues to leak. [facility] notified. Updated [facility]P faxed. Patient will arrive in 40 minutes. NAZ Parson Deidre, MD 03/01/2025 10:50 AM Signed Noted Melissa Trimble RN 03/01/2025 4:00 PM Signed Patient called. States that she [facility] around noon. Not ruptured. Shortly after [...] She asked if she should go to [place] for a swab to rule out rupture since they are closer. Advised they would keep her if she was ruptured. She does not want to deliver there. What do you recommend? NAZ Parson Deidre, MD 03/01/2025 4:12 PM Signed She can come back to [place] if she wants to go to [facility] b/c it is closer she can go [...] mouth two times a day. 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 60 tablet 5 ??? Insulin Patterson, Disposable, (PEN NEEDLE) 32 gauge x 5/32 [...] on 02/19/2025 Note viewed by patient 03/01/25 0866 Cosigner Signature (if applicable): CC: Dr Mayra Cam MD; No Primary Care Physician Signed Normal [facility] Ketones Test strip Ql (U)Ord ered By: Mayra Cam on 03-01-2025 Ketones Ql (U) Negative Negative [facility] Microscopic analysis of urin e for red blood cells (RBC)Ordered By: Mayra Cam on 03-01-2025 Microscopic analysis of urine for red blood cells (RBC) 0-5 SEEN /hpf 0-5 [facility] Mucus LM Ql (Urine sed)Order ed By: Mayra Cam on 03-01-2025 Mucus Ql (Urine sed) 1+ /hpf [facility] Nitrite Test strip Ql (U)Ord ered By: Mayra Cam on 03-01-2025 Nitrite Ql (U) Negative Negative [facility] OB Triage Physician Noteon 0 03-01-2025 OB Triage Physician Note [facility] Medical Records Department [address] [place] [address] OB Triage Physician Note 03/01/25 1334 MR#: [id number] Acct: [id number] Name: VAL RUIZ Rep #: [id number] : 2000 24 From: Mayar Cam MD PCP: Care Physician,No Primary Status:DEP CLI Y Location: [facility] HPI - General General Date of Service: [...] MD; No Primary Care Physician Signed Normal [facility] Protein Test strip Ql (U)Ord ered By: Mayra Cam on 03-01-2025 Protein Ql (U) Negative Negative [facility] Squamous epithelial cells de tection in urine sediment by light microscopyOrdered By: Mayra Cam on 03-01-2025 Epithelial cells.squamous LM Ql (Urine sed) 0-5 SEEN /hpf 5- [facility] Urinalysis, Completeon 03-01 BACTERIA 1+ /hpf Normal None Seen [facility] Comment on above: Order Comment: CLEAN CATCH Performed By: #### L 400.0001 #### [facility] [address] [place], [place], [id number] EPI,SQUAMOUS 0-5 SEEN Normal - [facility] Comment on above: Order Comment: CLEAN CATCH Performed By: #### L 400.0001 #### [facility] [address] [place], [place], [address] Mucus Ql (Urine sed) 1+ /hpf Normal [facility] Comment on above: Order Comment: CLEAN CATCH Performed By: #### L 400.0001 #### [facility] [address] [place], [place], [id number] RBC 0-5 SEEN Normal 0-5 [facility] Comment on above: Order Comment: CLEAN CATCH Performed By: #### L 400.0001 #### [facility] [address] [place], [place], [address] WBC 0-5 SEEN Normal 0-5 [facility] Comment on above: Order Comment: CLEAN CATCH Performed By: #### L 400.0001 #### [facility] [address] [place], [place], [id number] Urine clarityOrdered By: Parra on 03-01-2025 Clarity (U) Clear Clear [facility] Urine color determinationOrd ered By: Mayra Cam on 03-01-2025 Color (U) Straw Yellow [facility] Urine glucose detectionOrder ed By: Mayra Cam on 03-01-2025 Glucose Ql (U) Normal mg/dl Normal [facility] Urine leukocyte esterase det ection by dipstickOrdered By: Mayra Vincent on 03-01-2025 Leukocyte esterase Test strip Ql (U) Negative Negative [facility] Urine pHOrdered By: Mayra Flor on 03-01-2025 pH (U) 7.0 [pH] 5.0 - 8.0 [facility] Urine sediment bacteria coun t by microscopy (number/high power field)Ordered By: Mayra Cam on 03-01-2025 Bacteria LM.HPF (Urine sed) [#/Area] 1 /[HPF] None Seen [facility] Urine specific gravity measu rementOrdered By: Mayra Cam on 03-01-2025 Specific gravity (U) [Rel density] 1.010 1.002-1.030 [facility] Urine urobilinogen measureme ntOrdered By: Mayra Cam on 03-01-2025 Urobilinogen Ql (U) Normal mg/dl Normal [facility] White blood cell countOrdere d By: Mayra Cam on 03-01-2025 White blood cell count 0-5 SEEN /hpf 0-5 [facility] URINE OB DIP B/Oon Glucose Ql (U) Negative Neg mg/dL [facility] Interpretation and review of laboratory results Normal [facility] Protein.monoclonal (U) [Mass/Vol] Negative Neg mg/dL [facility] Bedside Glucoseon 02-24-2025 FINGERSTICK GLU 83 mg/dL Normal 74-106 [facility] Comment on above: Result Comment: ZACHARY GEMENT OF PATIENT CARE PER NURSING PROTOCOL Performed By: #### L 501.080 #### [facility] [address] [place], [place], [id number] FINGERSTICK GLU 55 mg/dL Low 74-106 [facility] Comment on above: Result Comment: ZACHARY GEMENT OF PATIENT CARE PER NURSING PROTOCOL Performed By: #### L 501.080 #### [facility] [address] [place], [place], [id number] Bilirubin Test strip Ql (U)O rdered By: Mayra Cam on 02-24-2025 Bilirubin Ql (U) Negative Negative [facility] CNPNon 02-24-2025 CNPN Telephone (OBGYWM) ----- VAL RUIZ ([id number]) 2000 F Date Time Provider Department 02/24/25 [...] office and is going to go to [facility] for evaluation. Kati Rolle APRN.CNM 02/24/2025 3:46 [...] mouth two times a day. - Insulin Patterson, Disposable, (PEN NEEDLE) 32 gauge x 5/32 [...] Status:Closed by KATI ROLLE on 02/24/25 Normal [facility] Glucose [facility] deOrdered By: Mayra Cam on 02-24-2025 Glucose [Mass/Vol] 83 mg/dL 74-106 [facility] Comment on above: MANAGEMENT OF PATIEN T CARE PER NURSING PROTOCOL Ketones Test strip Ql (U)Ord ered By: Mayra Cam on 02-24-2025 Ketones Ql (U) Negative Negative [facility] Microscopic analysis of urin e for red blood cells (RBC)Ordered By: Mayra Cam on 02-24-2025 Microscopic analysis of urine for red blood cells (RBC) 0-5 SEEN /hpf 0-5 [facility] Mucus LM Ql (Urine sed)Order ed By: Mayra Cam on 02-24-2025 Mucus Ql (Urine sed) 0 SEEN /hpf [facility] Nitrite Test strip Ql (U)Ord ered By: Mayra Cam on 02-24-2025 Nitrite Ql (U) Negative Negative [facility] OB Triage Physician Noteon 0 02-24-2025 OB Triage Physician Note [facility] Medical Records Department [address] [place] [address] OB Triage Physician Note 02/24/25 1740 MR#: [id number] Acct: [id number] Name: VAL RUIZ Rep #: [id number] : 2000 24 From: Kati Rolle CNM PCP: Care Physician,No Primary Status:REG CLI Y Location: [place] [address]-1 HPI - General HPI Narrative VAL RUIZ, [...] of A P 02/24/251956 Date Kati Shannantin [facility] Cosigner Signature (if applicable): Date CC: JAYLA Kati Rolle; No Primary Care Physician Signed Normal [facility] Protein Test strip Ql (U)Ord ered By: Mayra Cam on 02-24-2025 Protein Ql (U) 15 mg/dl High Negative [facility] Squamous epithelial cells de tection in urine sediment by light microscopyOrdered By: Mayra Cam on 02-24-2025 Epithelial cells.squamous LM Ql (Urine sed) 0-5 SEEN /hpf 5-10 [facility] Urinalysis, Completeon 02-24 BACTERIA 2+ /hpf Normal None Seen [facility] Comment on above: Order Comment: CLEAN CATCH Performed By: #### L 400.0001 #### [facility] [address] [place], [place], [id number] EPI,SQUAMOUS 0-5 SEEN Normal 5-10 [facility] Comment on above: Order Comment: CLEAN CATCH Performed By: #### L 400.0001 #### [facility] [address] [place], [place], [address] RBC 0-5 SEEN Normal 0-5 [facility] Comment on above: Order Comment: CLEAN CATCH Performed By: #### L 400.0001 #### [facility] [address] [place], [address] WBC 5-10 SEEN Normal 0-5 [facility] Comment on above: Order Comment: CLEAN CATCH Performed By: #### L 400.0001 #### [facility] [address] [place], [address] Mucus Ql (Urine sed) 0 SEEN Normal [facility] Comment on above: Order Comment: CLEAN CATCH Performed By: #### L 400.0001 #### [facility] [address] [place], [address] Urinalysis, Routine (Dipstic k)on 02-24-2025 BILIRUBIN URINE Normal Negative [facility] Comment on above: Order Comment: COLLE CTOR TO SPECIFY Result Comment: Canc elled via OM: Duplicate Order Performed By: #### L 400.2010 #### [facility] [address] [place], [address] Clarity (U) Normal Clear [facility] Comment on above: Order Comment: COLLE CTOR TO SPECIFY Result Comment: Canc elled via OM: Duplicate Order Performed By: #### L 400.2010 #### [facility] [address] [place], [address] Color (U) Normal Yellow [facility] Comment on above: Order Comment: COLLE CTOR TO SPECIFY Result Comment: Canc elled via OM: Duplicate Order Performed By: #### L 400.2010 #### [facility] [address] [place], [address] GLUCOSE, UR Normal Normal [facility] Comment on above: Order Comment: COLLE CTOR TO SPECIFY Result Comment: Canc elled via OM: Duplicate Order Performed By: #### L 400.2010 #### [facility] [address] [place], [address] KETONE UR Normal Negative [facility] Comment on above: Order Comment: COLLE CTOR TO SPECIFY Result Comment: Canc elled via OM: Duplicate Order Performed By: #### L 400.2010 #### [facility] [address] [place], [address] LEUK ESTERASE Normal Negative [facility] Comment on above: Order Comment: COLLE CTOR TO SPECIFY Result Comment: Canc elled via OM: Duplicate Order Performed By: #### L 400.2010 #### [facility] [address] [place], [address] Nitrite Ql (U) Normal Negative [facility] Comment on above: Order Comment: COLLE CTOR TO SPECIFY Result Comment: Canc elled via OM: Duplicate Order Performed By: #### L 400.2010 #### [facility] [address] [place], [address] OCCULT BLOOD-UR Normal Negative [facility] Comment on above: Order Comment: COLLE CTOR TO SPECIFY Result Comment: Canc elled via OM: Duplicate Order Performed By: #### L 400.2010 #### [facility] [address] [place], [address] pH UR Normal 5.0 - 8.0 [facility] Comment on above: Order Comment: COLLE CTOR TO SPECIFY Result Comment: Canc elled via OM: Duplicate Order Performed By: #### L 400.2010 #### [facility] [address] [place], [address] PROT DIPSTX Normal Negative [facility] Comment on above: Order Comment: COLLE CTOR TO SPECIFY Result Comment: Canc elled via OM: Duplicate Order Performed By: #### L 400.2010 #### [facility] [address] [place], [address] SP.GR. DIPSTX Normal 1.002-1.030 [facility] Comment on above: Order Comment: COLLE CTOR TO SPECIFY Result Comment: Canc elled via OM: Duplicate Order Performed By: #### L 400.2010 #### [facility] [address] [place], [id number] UR Preservative Normal [facility] Comment on above: Order Comment: COLLE CTOR TO SPECIFY Result Comment: Canc elled via OM: Duplicate Order Performed By: #### L 400.2010 #### [facility] [address] [place], [place], [address] UROBILI Normal Normal [facility] Comment on above: Order Comment: COLLE CTOR TO SPECIFY Result Comment: Canc elled via OM: Duplicate Order Performed By: #### L 400.2010 #### [facility] [address] [place], [place], [address] Urine clarityOrdered By: Parra on 02-24-2025 Clarity (U) Cloudy Clear [facility] Urine color determinationOrd ered By: Mayra Cam on 02-24-2025 Color (U) Yellow Yellow [facility] Urine glucose detectionOrder ed By: Mayra Cam on 02-24-2025 Glucose Ql (U) Normal mg/dl Normal [facility] Urine leukocyte esterase det ection by dipstickOrdered By: Mayra Vincent on 02-24-2025 Leukocyte esterase Test strip Ql (U) 25 /ul High Negative [facility] Urine pHOrdered By: Mayra Flor on 02-24-2025 pH (U) 6.5 [pH] 5.0 - 8.0 [facility] Urine sediment bacteria coun t by microscopy (number/high power field)Ordered By: Mayra Cam on 02-24-2025 Bacteria LM.HPF (Urine sed) [#/Area] 2 /[HPF] None Seen [facility] Urine specific gravity measu rementOrdered By: Mayra Cam on 02-24-2025 Specific gravity (U) [Rel density] 1.025 1.002-1.030 [facility] Urine urobilinogen measureme ntOrdered By: Mayra Cam on 02-24-2025 Urobilinogen Ql (U) Normal mg/dl Normal [facility] White blood cell countOrdere d By: Mayra Cam on 02-24-2025 White blood cell count 5-10 SEEN /hpf 0-5 [facility] CNPNon 02-20-2025 CNPN Telephone (ENDOAL) ----- VAL RUIZ ([id number]) 2000 F Date Time Provider Department 02/20/25 [...] mouth two times a day. - Insulin Patterson, Disposable, (PEN NEEDLE) 32 gauge x 5/32 [...] Status:Closed by LALITO ROCHA on 02/20/25 Normal [facility] Examination level ultrasound on 02-19-2025 [facility] Radiology Study observation (narrative) [facility] HISTORY PHYSICALon HISTORY PHYSICAL HNO ID: [id number] Author: MAYRA FREY MD Service: ? Author [...] times a day. 60 tablet 5 Insulin Patterson, Disposable, (PEN NEEDLE) 32 gauge x 5/32 [...] medications and allergies Mayra Vincent MD Normal [facility] ROUTINE, GROUP B ST REPTOCOCCUS BY PCRon 02-19-2025 ROUTINE, GROUP B STREPTOCOCCUS BY PCR Not detected Normal [facility] Comment on above: Performed By: #### M AT21 #### [facility] CLIA [id number] [address] [place] [address] TYPE + SCREEN PRENATALon ABO A Normal [facility] Comment on above: Order Comment: Speci men Type: BLOOD SPECIMEN Ordering Facility: [facility] Address: [address] [place] [address] Performed By: #### T SPN #### [facility] CLIA [id number] [address] [place] [address] OF JULIÁN Rh Nom (Bld) Negative Normal [facility] Comment on above: Order Comment: Speci men Type: BLOOD SPECIMEN Ordering Facility: [facility] Address: [address] [place] [address] Performed By: #### T SPN #### [facility] CLIA [id number] [address] [place] [address] OF [facility] TYPE AND SCREEN EXPIRATION 02/14/2025 23:59 Normal [facility] Comment on above: Order Comment: Speci men Type: BLOOD SPECIMEN Ordering Facility: [facility] Address: [address] [place] [address] Performed By: #### T SPN #### [facility] CLIA [id number] [address] [place] [address] OF [place]ULIÁN CNPSirena 02-10-2025 ROSA Telephone (ENDOAL) ----- VAL RUIZ ([id number]) 2000 F Date Time Provider Department 02/10/25 [...] mouth two times a day. - Insulin Patterson, Disposable, (PEN NEEDLE) 32 gauge x 5/32 [...] Status:Closed by LALITO ROCHA on 02/10/25 Normal [facility] Examination level ultrasound on 02-08-2025 [facility] Radiology Study observation (narrative) [facility] CBC panel Auto (Bld)on 02-04 Erythrocyte distribution width (RBC) [Ratio] 20.6 % High 11.5 - 15.0 % [facility] Hematocrit (Bld) [Volume fraction] 30.1 % Low 36.0 - 46.0 % [facility] Hemoglobin (Bld) [Mass/Vol] 9.5 g/dL Low 11.5 - 15.5 g/dL [facility] Interpretation and review of laboratory results Abnormal [facility] MCH (RBC) [Entitic mass] 29.9 pg 26.0 - 34.0 pg [facility] MCHC (RBC) [Mass/Vol] 31.6 g/dL 30.5 - 36.0 g/dL [facility] MCV (RBC) [Entitic vol] 94.7 fL 80.0 - 100.0 fL [facility] Nucleated RBC (Bld) [#/Vol] NINF [facility] Platelet mean volume (Bld) [Entitic vol] 10.5 fL 9.0 - 12.7 fL [facility] Platelets (Bld) [#/Vol] 222 10*3/uL [facility] RBC (Bld) [#/Vol] 3.18 10*6/uL Low 3.90 - 5.2 0 m/uL [facility] WBC (Bld) [#/Vol] 4.96 10*3/uL [facility] Erythrocyte distribution width (RBC) [Ratio] 20.6 % High 11.5-15.0 [facility] Comment on above: Order Comment: Speci men Type: BLOOD SPECIMEN Ordering Facility: [facility] Address: [address] [place] [address] Performed By: #### M AT21 #### [facility] CLIA [id number] [address] [place] [address] Hematocrit (Bld) [Volume fraction] 30.1 % Low 36.0-46.0 [facility] Comment on above: Order Comment: Speci men Type: BLOOD SPECIMEN Ordering Facility: [facility] Address: [address] [place] [address] Performed By: #### M AT21 #### [facility] CLIA [id number] [address] [place] [address] Hemoglobin (Bld) [Mass/Vol] 9.5 g/dL Low 11.5-15.5 [facility] Comment on above: Order Comment: Speci men Type: BLOOD SPECIMEN Ordering Facility: [facility] Address: [address] [place] [address] Performed By: #### M AT21 #### [facility] CLIA [id number] [address] [place] [address] MCH (RBC) [Entitic mass] 29.9 pg Normal 26.0-34.0 [facility] Comment on above: Order Comment: Speci men Type: BLOOD SPECIMEN Ordering Facility: [facility] Address: [address] [place] [address] Performed By: #### M AT21 #### [facility] CLIA [id number] [address] [place] [address] MCHC (RBC) [Mass/Vol] 31.6 g/dL Normal 30.5-36.0 [facility] Comment on above: Order Comment: Speci men Type: BLOOD SPECIMEN Ordering Facility: [facility] Address: [address] [place] [address] Performed By: #### M AT21 #### [facility] CLIA [id number] [address] [place] [address] MCV (RBC) [Entitic vol] 94.7 fL Normal 80.0-100.0 [facility] Comment on above: Order Comment: Speci men Type: BLOOD SPECIMEN Ordering Facility: [facility] Address: [address] [place] [address] Performed By: #### M AT21 #### [facility] CLIA [id number] [address] [place] [address] Nucleated RBC (Bld) [#/Vol] 10*3/uL Normal <0.01 [facility] Comment on above: Order Comment: Speci men Type: BLOOD SPECIMEN Ordering Facility: [facility] Address: [address] [place] [address] Performed By: #### M AT21 #### [facility] CLIA [id number] [address] [place] [address] Platelet mean volume (Bld) [Entitic vol] 10.5 fL Normal 9.0-12.7 [facility] Comment on above: Order Comment: Speci men Type: BLOOD SPECIMEN Ordering Facility: [facility] Address: [address] [place] [address] Performed By: #### M AT21 #### [facility] CLIA [id number] [address] [place] [address] Platelets (Bld) [#/Vol] 222 10*3/uL Normal 150-400 [facility] Comment on above: Order Comment: Speci men Type: BLOOD SPECIMEN Ordering Facility: [facility] Address: [address] [place] [address] Performed By: #### M AT21 #### [facility] CLIA [id number] [address] [place] [address] RBC (Bld) [#/Vol] 3.18 10*6/uL Low 3.90-5.20 [facility] Comment on above: Order Comment: Speci men Type: BLOOD SPECIMEN Ordering Facility: [facility] Address: [address] [place] [address] Performed By: #### M AT21 #### [facility] CLIA [id number] [address] [place] [address] WBC (Bld) [#/Vol] 4.96 10*3/uL Normal 3.70-11.00 [facility] Comment on above: Order Comment: Speci men Type: BLOOD SPECIMEN Ordering Facility: [facility] Address: [address] [place] [address] Performed By: #### M AT21 #### [facility] CLIA [id number] [address] [place] [address] Comprehensive metabolic 2000 panelOrdered By: Kaila Menjivar on 02-04-2025 Albumin [Mass/Vol] 3 g/dL Low 3.9 - 4.9 g/dL [facility] ALP [Catalytic activity/Vol] 128 U/L High 34 - 123 U/L [facility] ALT [Catalytic activity/Vol] 8 U/L 7 - 38 U/L [facility] Anion gap [Moles/Vol] 11 mmol/L 8 - 15 mmol/L [facility] AST [Catalytic activity/Vol] 11 U/L Low 13 - 35 U/L [facility] Bilirubin [Mass/Vol] 0.2 mg/dL 0.2 - 1 .3 mg/dL [facility] Calcium [Mass/Vol] 8.6 mg/dL 8.5 - 10. 2 mg/dL [facility] Chloride [Moles/Vol] 104 mmol/L 98 - 10 7 mmol/L [facility] CO2 [Moles/Vol] 19 mmol/L Low 22 - 30 mmol/L [facility] Creatinine [Mass/Vol] 0.47 mg/dL Low 0.58 - 0.96 mg/dL [facility] GFR/1.73 sq M.predicted among non-blacks MDRD (S/P/Bld) [Vol rate/Area] 136 mL/min/{1.73_m2} - PINF [facility] Comment on above: Estimated Glomerular Filtration [...] 133 mg/dL High 74 - 99 mg/dL [facility] Comment on above: The [place] Diab[employer] s Association (ADA) provides guidance for [...] Standards of Medical Care in Diabetes 2016, [place] Diabetes Association. Diabetes Care. 2016.39(Suppl 1). Interpretation and review of laboratory results Abnormal [facility] Potassium [Moles/Vol] 3.9 mmol/L 3.7 - 5.1 mmol/L [facility] Protein [Mass/Vol] 6.5 g/dL 6.3 - 8.0 g/dL Cl [facility] Sodium [Moles/Vol] 134 mmol/L Low 136 - 144 mmol/L [facility] Urea nitrogen [Mass/Vol] 5 mg/dL Low 7 - 21 mg/dL [facility] Comprehensive metabolic 2000 panelon 02-04-2025 Albumin [Mass/Vol] 3.0 g/dL Low 3.9-4.9 [facility] Comment on above: Order Comment: Speci men Type: BLOOD SPECIMEN Ordering Facility: [facility] Address: [address] [place] [address] Performed By: #### M AT21 #### [facility] CLIA [id number] [address] [place] [address] ALP [Catalytic activity/Vol] 128 U/L High 34-123 [facility] Comment on above: Order Comment: Speci men Type: BLOOD SPECIMEN Ordering Facility: [facility] Address: [address] [place] [address] Performed By: #### M AT21 #### [facility] CLIA [id number] [address] [place] [address] ALT [Catalytic activity/Vol] 8 U/L Normal 7-38 [facility] Comment on above: Order Comment: Speci men Type: BLOOD SPECIMEN Ordering Facility: [facility] Address: [address] [place] [address] Performed By: #### M AT21 #### [facility] CLIA [id number] [address] [place] [address] Anion gap [Moles/Vol] 11 mmol/L Normal 8-15 [facility] Comment on above: Order Comment: Speci men Type: BLOOD SPECIMEN Ordering Facility: [facility] Address: [address] [place] [address] Performed By: #### M AT21 #### [facility] CLIA [id number] [address] [place] [address] AST [Catalytic activity/Vol] 11 U/L Low 13-35 [facility] Comment on above: Order Comment: Speci men Type: BLOOD SPECIMEN Ordering Facility: [facility] Address: [address] [place] [address] Performed By: #### M AT21 #### [facility] CLIA [id number] [address] [place] [address] Bilirubin [Mass/Vol] 0.2 mg/dL Normal 0.2-1.3 [facility] Comment on above: Order Comment: Speci men Type: BLOOD SPECIMEN Ordering Facility: [facility] Address: [address] [place] [address] Performed By: #### M AT21 #### [facility] CLIA [id number] [address] [place] [address] Calcium [Mass/Vol] 8.6 mg/dL Normal 8.5-10.2 [facility] Comment on above: Order Comment: Speci men Type: BLOOD SPECIMEN Ordering Facility: [facility] Address: [address] [place] [address] Performed By: #### M AT21 #### [facility] CLIA [id number] [address] [place] [address] Chloride [Moles/Vol] 104 mmol/L Normal 98-107 [facility] Comment on above: Order Comment: Speci men Type: BLOOD SPECIMEN Ordering Facility: [facility] Address: [address] [place] [address] Performed By: #### M AT21 #### [facility] CLIA [id number] [address] [place] [address] CO2 [Moles/Vol] 19 mmol/L Low 22-30 [facility] Comment on above: Order Comment: Speci men Type: BLOOD SPECIMEN Ordering Facility: [facility] Address: [address] [place] [address] Performed By: #### M AT21 #### [facility] CLIA [id number] [address] [place] [address] Creatinine [Mass/Vol] 0.47 mg/dL Low 0.58-0.96 [facility] Comment on above: Order Comment: Speci men Type: BLOOD SPECIMEN Ordering Facility: [facility] Address: [address] [place] [address] Performed By: #### M AT21 #### [facility] CLIA [id number] [address] [place] [address] Creatinine and Glomerular filtration rate.predicted panel (S/P/Bld) 136 mL/min/1.73m??? Normal >=60 [facility] Comment on above: Order Comment: Gerhard kim Type: BLOOD SPECIMEN Ordering Facility: [facility] Address: [address] [place] [address] Result Comment: Janet mated Glomerular Filtration Rate [...] GFR. Performed By: #### M AT21 #### [facility] CLIA [id number] [address] [place] [address] Glucose [Mass/Vol] 133 mg/dL High 74-99 [facility] Comment on above: Order Comment: Gerhard kim Type: BLOOD SPECIMEN Ordering Facility: [facility] Address: [address] [place] [address] Result Comment: The [place] Diabetes Association (ADA) provides guidance for cutoff [...] Standards of Medical Care in Diabetes 2016, [place] Diabetes Association. Diabetes Care. 2016.39(Suppl 1). Performed By: #### M AT21 #### [facility] CLIA [id number] [address] [place] [address] Potassium [Moles/Vol] 3.9 mmol/L Normal 3.7-5.1 [facility] Comment on above: Order Comment: Speci men Type: BLOOD SPECIMEN Ordering Facility: [facility] Address: [address] [place] [address] Performed By: #### M AT21 #### [facility] CLIA [id number] [address] [place] [address] Protein [Mass/Vol] 6.5 g/dL Normal 6.3-8.0 [facility] Comment on above: Order Comment: Speci men Type: BLOOD SPECIMEN Ordering Facility: [facility] Address: [address] [place] [address] Performed By: #### M AT21 #### [facility] CLIA [id number] [address] [place] [address] Sodium [Moles/Vol] 134 mmol/L Low 136-144 [facility] Comment on above: Order Comment: Speci men Type: BLOOD SPECIMEN Ordering Facility: [facility] Address: [address] [place] [address] Performed By: #### M AT21 #### [facility] CLIA [id number] [address] [place] [address] Urea nitrogen [Mass/Vol] 5 mg/dL Low 7-21 [facility] Comment on above: Order Comment: Speci men Type: BLOOD SPECIMEN Ordering Facility: [facility] Address: [address] [place] [address] Performed By: #### M AT21 #### [facility] CLIA [id number] [address] [place] [address] No Panel Informationon 02-04 [facility] Prot/Creat Uron 02-04-2025 Protein/Creatinine (U) [Mass ratio] 0.21 mg/mg High <0.15 [facility] Comment on above: Order Comment: Speci men Type: BLOOD SPECIMEN Ordering Facility: [facility] Address: [address] [place] [address] Result Comment: Adul t Proteinuria Categories: <0.15 mg/mg is considered normal to mildly increased 0.15 - 0.50 mg/mg is considered moderately increased >0.50 mg/mg is considered severely increased KDIGO. (2013). KDIGO 2012 Clinical Practice Guideline for the Evaluation and Management of Chronic Kidney Disease. Official Journal of the International Society of Nephrology, 3(1), 1-150. Performed By: #### 5 7021-8 #### [facility] CLIA [id number] [address] [place] [address] STATES OF [facility] Protein/Creatinine (U) [Mass ratio]on 02-04-2025 Creatinine (U) [Mass/Vol] 43.4 mg/dL Normal 20.0-300.0 [facility] Comment on above: Order Comment: Gerhard kim Type: BLOOD SPECIMEN Ordering Facility: [facility] Address: [address] [place] [address] Performed By: #### 5 7021-8 #### [facility] CLIA [id number] [address] [place] [address] Protein (U) [Mass/Vol] 9 mg/dL Normal 0-20 [facility] Comment on above: Order Comment: Gerhard kim Type: BLOOD SPECIMEN Ordering Facility: [facility] Address: [address] [place] [address] Performed By: #### 5 7021-8 #### [facility] [id number] [address] [place] [address] OF [facility] URINE OB DIP B/OOrdered By: Yamila Azar on 02-04-2025 Glucose Ql (U) Negative Neg mg/dL [facility] Interpretation and review of laboratory results Normal [facility] Protein.monoclonal (U) [Mass/Vol] Negative Neg mg/dL [facility] Yoly 02-02-2025 ROSA Telephone (ENDOAL) ----- MERYL RUIZDenise Albert ([id number]) 2000 F Date Time Provider Department 02/02/25 [...] mouth two times a day. - Insulin Patterson, Disposable, (PEN NEEDLE) 32 gauge x 5/32 [...] Status:Closed by LALITO ROCHA on 02/02/25 Normal [facility] Examination level ultrasound on 02-01-2025 [facility] Radiology Study observation (narrative) [facility] Yoly 01-27-2025 ROSA Telephone (ENDOAL) ----- VAL RUIZ ([id number]) 2000 F Date Time Provider Department 01/27/25 [...] mouth two times a day. - Insulin Patterson, Disposable, (PEN NEEDLE) 32 gauge x 5/32 [...] Status:Closed by LALITO ROCHA on 01/27/25 Normal [facility] Examination level ultrasound on 01-26-2025 [facility] Radiology Study observation (narrative) [facility] Examination level ultrasound on 01-25-2025 [facility] Examination level ultrasound on 01-22-2025 Radiology Study observation (narrative) [facility] 01-19-2025 CNPBety Telephone (ENDOAL) ----- VAL RUIZ ([id number]) 2000 F Date Time Provider Department 01/19/25 [...] mouth two times a day. - Insulin Patterson, Disposable, (PEN NEEDLE) 32 gauge x 5/32 [...] Encounter Status:Closed by LALITO ROCHA on 01/19/25 [facility] Yoly 01-12-2025 ROSA Telephone (ENDOAL) ----- VAL RUIZ ([id number]) 2000 F Date Time Provider Department 01/12/25 [...] mouth two times a day. - Insulin Patterson, Disposable, (PEN NEEDLE) 32 gauge x 5/32 [...] Encounter Status:Closed by LALITO ROCHA on 01/12/25 [facility] 01-08-2025 [facility] Telephone ([id number]) ----- VAL RUIZ ([id number]) 2000 F Date Time Provider Department 01/08/25 MELISSA CHAVEZ [id number] During your visit today, we recorded the following information about you: Melissa Chavez RN 01/08/2025 10:47 AM Signed 3rd risk assessment form submitted 01/08/2025. Melissa Chavez RN Allergies As of Date: 01/08/2025 Noted Allergy Reaction CEPHALEXIN 05/01/2022 2 - Rash Date Reviewed: 01/07/2025 Reviewed by: Alfred Arcos MD - Fully Assessed Reason for Visit: [employer] - Other [0202] Cmt: PRAF Prescriptions as of 01/08/2025 - [...] mouth two times a day. - Insulin Patterson, Disposable, (PEN NEEDLE) 32 gauge x 532 [...] Status:Closed by MELISSA CHAVEZ on 01/08/25 Normal [facility] CNPSirena 01-05-2025 CNPN Telephone (ENDOAL) ----- VAL RUIZ ([id number]) 2000 F Date Time Provider Department 01/05/25 [...] mouth two times a day. - Insulin Patterson, Disposable, (PEN NEEDLE) 32 gauge x 5/32 [...] Status:Closed by LALITO ROCHA on 01/05/25 Normal [facility] CNPNon 12-31-2024 CNPN Telephone (INTMMN) ----- VAL RUIZ ([id number]) 2000 F Date Time Provider Department 12/31/24 THOM DEAN INTMMN During your visit today, we recorded the following information about you: Thom Dean, NAZ 12/31/2024 11:03 AM Signed Venofer order signed and PA completed. Ready for scheduling. Shoshana Roy 12/31/2024 11:24 AM Addendum LVM for pt to call back and schedule iron sucrose 200x5 over [address] Alfred Acros ordering Shoshana Thomason 01/07/2025 2:40 PM Signed [...] mouth two times a day. - Insulin Patterson, Disposable, (PEN NEEDLE) 32 gauge x 5/32 [...] Encounter Status:Closed by [facility] CNPBety Telephone (ENDOAL) ----- VAL RUIZ ([id number]) 2000 F Date Time Provider Department 12/28/24 [...] mouth two times a day. - Insulin Patterson, Disposable, (PEN NEEDLE) 32 gauge x 5/32 [...] Status:Closed by LALITO ROCHA on 12/28/24 Normal [facility] CBC W Auto Differential pane l (Bld)on 12-25-2024 Basophils (Bld) [#/Vol] 0.03 10*3/uL Normal <0.11 [facility] Comment on above: Order Comment: Speci men Type: BLOOD SPECIMEN Ordering Facility: [facility] Address: [address] [place] [address] Performed By: #### 5 7021-8 #### [facility] CLIA [id number] [address] [place] [address] [place] Basophils/100 WBC (Bld) 0.4 % Normal [facility] Comment on above: Order Comment: Speci men Type: BLOOD SPECIMEN Ordering Facility: [facility] Address: [address] [place] [address] Performed By: #### 5 7021-8 #### [facility] CLIA [id number] [address] [place] [address] [place] Differential cell count method Nom (Bld) Auto Normal [facility] Comment on above: Order Comment: Speci men Type: BLOOD SPECIMEN Ordering Facility: [facility] Address: [address] [place] [address] Performed By: #### 5 7021-8 #### [facility] CLIA [id number] [address] [place] [address] [place] Eosinophils (Bld) [#/Vol] 0.15 10*3/uL Normal <0.46 [facility] Comment on above: Order Comment: Speci men Type: BLOOD SPECIMEN Ordering Facility: [facility] Address: [address] [place] [address] Performed By: #### 5 7021-8 #### [facility] CLIA [id number] [address] [place] [address] [place] Eosinophils/100 WBC (Bld) 2.0 % Normal [facility] Comment on above: Order Comment: Speci men Type: BLOOD SPECIMEN Ordering Facility: [facility] Address: [address] [place] [address] Performed By: #### 5 7021-8 #### [facility] CLIA [id number] [address] [place] [address] [place] Erythrocyte distribution width (RBC) [Ratio] 17.9 % High 11.5-15.0 [facility] Comment on above: Order Comment: Speci men Type: BLOOD SPECIMEN Ordering Facility: [facility] Address: [address] [place] [address] Performed By: #### 5 7021-8 #### [facility] [id number] [address] [place] [address] [place] Hematocrit (Bld) [Volume fraction] 27.7 % Low 36.0-46.0 [facility] Comment on above: Order Comment: Speci men Type: BLOOD SPECIMEN Ordering Facility: [facility] Address: [address] [place] [address] Performed By: #### 5 7021-8 #### [facility] [id number] [address] [place] [address] [place] Hemoglobin (Bld) [Mass/Vol] 8.6 g/dL Low 11.5-15.5 [facility] Comment on above: Order Comment: Speci men Type: BLOOD SPECIMEN Ordering Facility: [facility] Address: [address] [place] [address] Performed By: #### 5 7021-8 #### [facility] [id number] [address] [place] [address] [place] Immature granulocytes (Bld) [#/Vol] 0.05 10*3/uL Normal <0.10 [facility] Comment on above: Order Comment: Speci men Type: BLOOD SPECIMEN Ordering Facility: [facility] Address: [address] [place] [address] Performed By: #### 5 7021-8 #### [facility] CLIA [id number] [address] [place] [address] [place] Immature granulocytes/100 WBC (Bld) 0.7 % Normal [facility] Comment on above: Order Comment: Speci men Type: BLOOD SPECIMEN Ordering Facility: [facility] Address: [address] [place] [address] Performed By: #### 5 7021-8 #### [facility] [id number] [address] [place] [address] [place] Lymphocytes (Bld) [#/Vol] 1.51 10*3/uL Normal 1.00-4.00 [facility] Comment on above: Order Comment: Speci men Type: BLOOD SPECIMEN Ordering Facility: [facility] Address: [address] [place] [address] Performed By: #### 5 7021-8 #### [facility] CLIA [id number] [address] [place] [address] [place] Lymphocytes/100 WBC (Bld) 19.8 % Normal [facility] Comment on above: Order Comment: Speci men Type: BLOOD SPECIMEN Ordering Facility: [facility] Address: [address] [place] [address] Performed By: #### 5 7021-8 #### [facility] CLIA [id number] [address] [place] [address] [place] MCH (RBC) [Entitic mass] 27.5 pg Normal 26.0-34.0 [facility] Comment on above: Order Comment: Speci men Type: BLOOD SPECIMEN Ordering Facility: [facility] Address: [address] [place] [address] Performed By: #### 5 7021-8 #### [facility] CLIA [id number] [address] [place] [address] [place] MCHC (RBC) [Mass/Vol] 31.0 g/dL Normal 30.5-36.0 [facility] Comment on above: Order Comment: Speci men Type: BLOOD SPECIMEN Ordering Facility: [facility] Address: [address] [place] [address] Performed By: #### 5 7021-8 #### [facility] CLIA [id number] [address] [place] [address] [place] MCV (RBC) [Entitic vol] 88.5 fL Normal 80.0-100.0 [facility] Comment on above: Order Comment: Speci men Type: BLOOD SPECIMEN Ordering Facility: [facility] Address: [address] [place] [address] Performed By: #### 5 7021-8 #### [facility] CLIA [id number] [address] [place] [address] [place] Monocytes (Bld) [#/Vol] 0.41 10*3/uL Normal <0.87 [facility] Comment on above: Order Comment: Speci men Type: BLOOD SPECIMEN Ordering Facility: [facility] Address: [address] [place] [address] Performed By: #### 5 7021-8 #### [facility] CLIA [id number] [address] [place] [address] [place] Monocytes/100 WBC (Bld) 5.4 % Normal [facility] Comment on above: Order Comment: Speci men Type: BLOOD SPECIMEN Ordering Facility: [facility] Address: [address] [place] [address] Performed By: #### 5 7021-8 #### [facility] CLIA [id number] [address] [place] [address] [place] Neutrophils (Bld) [#/Vol] 5.49 10*3/uL Normal 1.45-7.50 [facility] Comment on above: Order Comment: Speci men Type: BLOOD SPECIMEN Ordering Facility: [facility] Address: [address] [place] [address] Performed By: #### 5 7021-8 #### [facility] CLIA [id number] [address] [place] [address] [place] Neutrophils/100 WBC (Bld) 71.7 % Normal [facility] Comment on above: Order Comment: Speci men Type: BLOOD SPECIMEN Ordering Facility: [facility] Address: [address] [place] [address] Performed By: #### 5 7021-8 #### [facility] CLIA [id number] 30 [place] [address] [place] Nucleated RBC (Bld) [#/Vol] 10*3/uL Normal <0.01 [facility] Comment on above: Order Comment: Speci men Type: BLOOD SPECIMEN Ordering Facility: [facility] Address: [address] [place] [address] Performed By: #### 5 7021-8 #### [facility] CLIA [id number] [address] [place] [address] [place] Nucleated RBC/100 WBC (Bld) [Ratio] 0.0 /100 WBC Normal [facility] Comment on above: Order Comment: Speci men Type: BLOOD SPECIMEN Ordering Facility: [facility] Address: [address] [place] [address] Performed By: #### 5 7021-8 #### [id number] [address] [place] [address] [place] Platelet mean volume (Bld) [Entitic vol] 10.5 fL Normal 9.0-12.7 [facility] Comment on above: Order Comment: Speci men Type: BLOOD SPECIMEN Ordering Facility: [facility] Address: [address] [place], [place] [address] Performed By: #### 5 7021-8 #### [facility] CLIA [id number] [address] [place] [address] [place] Platelets (Bld) [#/Vol] 289 10*3/uL Normal 150-400 [facility] Comment on above: Order Comment: Speci men Type: BLOOD SPECIMEN Ordering Facility: [facility] Address: [address] [place] [address] Performed By: #### 5 7021-8 #### [facility] CLIA [id number] [address] [place] [address] [place] RBC (Bld) [#/Vol] 3.13 10*6/uL Low 3.90-5.20 [facility] Comment on above: Order Comment: Speci men Type: BLOOD SPECIMEN Ordering Facility: [facility] Address: [address] [place] [address] Performed By: #### 5 7021-8 #### [facility] CLIA [id number] [address] [place] [address] [place] WBC (Bld) [#/Vol] 7.64 10*3/uL Normal 3.70-11.00 [facility] Comment on above: Order Comment: Speci men Type: BLOOD SPECIMEN Ordering Facility: [facility] Address: [address] [place] [address] Performed By: #### 5 7021-8 #### [facility] CLIA [id number] [address] [place] [address] [place] Examination level ultrasound on 12-25-2024 [facility] Radiology Study observation (narrative) [facility] Ferritin SerPl-mCncon 2024 Ferritin [Mass/Vol] 14.5 ng/mL Low 14.7-205.1 [facility] Comment on above: Order Comment: Speci men Type: BLOOD SPECIMEN Ordering Facility: [facility] Address: [address] [place] [address] Performed By: #### M AT21 #### [facility] CLIA [id number] [address] [place] [address] Iron and Iron binding capaci ty panelon 12-25-2024 Iron [Mass/Vol] 59 ug/dL Normal 41-186 [facility] Comment on above: Order Comment: Speci men Type: BLOOD SPECIMEN Ordering Facility: [facility] Address: [address] [place] [address] Performed By: #### M AT21 #### [facility] CLIA [id number] [address] [place] [address] Iron binding capacity [Mass/Vol] 542 ug/dL High 232-386 [facility] Comment on above: Order Comment: Speci men Type: BLOOD SPECIMEN Ordering Facility: [facility] Address: [address] [place] [address] Performed By: #### M AT21 #### [facility] CLIA [id number] [address] [place] [address] Iron/TIBC [Molar ratio] 10.9 % Low 15.0-57.0 [facility] Comment on above: Order Comment: Speci men Type: BLOOD SPECIMEN Ordering Facility: [facility] Address: [address] [place] [address] Performed By: #### M AT21 #### [facility] CLIA [id number] [address] [place] [address] Reagin and Treponema pallidu m IgG and IgM [Interp]on 12-25-2024 T. pallidum IgG+IgM IA Ql (S) Non-Reactive Normal Nonreactive [facility] Comment on above: Order Comment: Speci men Type: BLOOD SPECIMEN Ordering Facility: [facility] Address: [address] [place] [address] Performed By: #### 7 3752-8 #### [facility] CLIA [id number] [address] [place] [address] [place] Reagin+T pallidum IgG+IgM Se rPl-Impon 12-25-2024 Reagin and Treponema pallidum IgG and IgM [Interp] Cannot exclude recent Treponemal infection if specimen collected within 7-10 days after appearance of suspect lesions or 2-3 weeks after an exposure. Clinical correlation is required. Normal [facility] Comment on above: Order Comment: Speci men Type: BLOOD SPECIMEN Ordering Facility: [facility] Address: [address] [place] [address] Performed By: #### 7 3752-8 #### [facility] CLIA [id number] [address] [place] [address] [place] [address] [place] URINE OB DIP B/Oon Glucose Ql (U) Negative Neg mg/dL [facility] Protein.monoclonal (U) [Mass/Vol] Negative Neg mg/dL [facility] CNPNon 12-20-2024 CNPN Telephone (ENDOAL) ----- VAL RUIZ ([id number]) 2000 F Date Time Provider Department 12/20/24 [...] mouth two times a day. - Insulin Patterson, Disposable, (PEN NEEDLE) 32 gauge x 5/32 [...] Encounter Status:Closed [facility] Tele[facility] (ENDOAL) ----- VAL RUIZ ([id number]) 2000 F Date Time Provider Department 12/15/24 [...] mouth two times a day. - Insulin Patterson, Disposable, (PEN NEEDLE) 32 gauge x 5/32 [...] Encounter Status:Closed by LALITO ROCHA on 12/15/24 [facility] 12-07-2024 CNPN Telephone (OBGYWM) ----- VAL RUIZ ([id number]) 2000 F Date Time Provider Department 12/07/24 ALFRED ARCOS During your visit today, we recorded the following information about you: Elena Parker RN 12/07/2024 8:45 AM Signed Breast pump order received from [employer]. To KJ to sign. NAZ Mantilla Trisha, [...] mouth two times a day. - Insulin Patterson, Disposable, (PEN NEEDLE) 32 gauge x 5/32 [...] Status:Closed by ELENA PARKER on 12/08/24 Normal [facility] Examination level ultrasound on 12-03-2024 [facility] Radiology Study observation (narrative) [facility] URINE OB DIP B/Oon Glucose Ql (U) Negative Neg mg/dL [facility] Interpretation and review of laboratory results Normal [facility] Protein.monoclonal (U) [Mass/Vol] Negative Neg mg/dL [facility] CNPNon 11-30-2024 CNPN Telephone (ENDOAL) ----- VAL RUIZ ([id number]) 2000 F Date Time Provider Department 11/30/24 [...] prior to meals + scale. - Insulin Patterson, Disposable, (PEN NEEDLE) 32 gauge x 5/32 [...] Encounter Status:Closed by LALITO ROCHA on 11/30/24 [facility] 11-22-2024 CNPN Telephone (ENDOAL) ----- VAL RUIZ ([id number]) 2000 F Date Time Provider Department 11/22/24 [...] prior to meals + scale. - Insulin Patterson, Disposable, (PEN NEEDLE) 32 gauge x 5/32 [...] Encounter Status:Closed by LALITO ROCHA on 11/22/24 [facility] 11-15-2024 ROSA Telephone (ENDOAL) ----- VAL RUIZ ([id number]) 2000 F Date Time Provider Department 11/15/24 [...] prior to meals + scale. - Insulin Patterson, Disposable, (PEN NEEDLE) 32 gauge x 5/32 [...] Encounter Status:Closed by LALITO ROCHA on 11/15/24 [facility] 11-10-2024 JASEN Telephone (ENDOAL) ----- VAL RUIZ ([id number]) 2000 F Date Time Provider Department 11/10/24 [...] prior to meals + scale. - Insulin Patterson, Disposable, (PEN NEEDLE) 32 gauge x 5/32 [...] Encounter Status:Closed by LALITO ROCHA on 11/10/24 [facility] FETALon 11-10-2024 + ----- ---+-+ Pediatric Cardiology Echocardiogram Report + ---+-+ NAME: VAL RUIZ : 2000 PT ID#: [id number] Age: 24 years Sex: F STUDY DATE: 11/10/2024 1:47:35 PM DEEP: 03/17/2025 GA: 21w6d Image Quality: Technically difficult and adequate. Referring Physician: Melsisa Aguilera Diagnosing Physician: Edie Mayer Geometry Tutor: Oksana Chaudhari [facility] 2nd Geometry Tutor: Diagnosis: O35.9XX1 Suspected abnormality and damage, fetus 1 of multiple Procedure Code: 69217, 28736, 34167 Echo, Complete (w/Doppler and color) Exam Location: [facility] (). Indications: Evaluate cardiac anatomy and function [...] rate and rhythm. HR 150 bpm Mechanical IL 113 ms Segmental Anatomy, Cardiac Position and [...] on 11/10/2024 at 2:57:50 PM Final CC [employer] Medical Image : [id number] See Link below for Image Normal [facility] 11-09-2024 CNPN Telephone (CSG852) ----- VAL RUIZ ([id number]) 2000 F Date Time Provider Department 11/09/24 MELISSA CHAVEZ [id number] During your visit today, we recorded the following information about you: Melissa Chavez RN 11/09/2024 8:43 AM Signed 2nd risk assessment form submitted 11/09/2024. Melissa Chavez RN Allergies As of Date: 11/09/2024 Noted Allergy Reaction CEPHALEXIN 05/01/2022 2 - Rash Date Reviewed: 11/06/2024 Reviewed by: Alfred Arcos MD - Fully Assessed Reason for Visit: [employer]ork [employer] - Other [3602] Cmt: PRAF Prescriptions as of 11/09/2024 - famotidine (PEPCID) 20 mg tablet Take 1 tablet by mouth two times a day. - insulin lispro (HUMALOG KWIKPEN) 100 unit/mL 5-8-8 units prior to meals + scale. - insulin NPH (HUMULIN N NPH INSULIN KWIKPEN) 100 unit/mL (3 mL) injection pen 22 units at bedtime - Insulin Patterson, Disposable, (PEN NEEDLE) 32 gauge x 5/32 [...] mellitus in in *09/18/2024 Encounter Status:Closed by EMLISSA CHAVEZ on 11/09/24 Normal [facility] Examination level ultrasound on 11-06-2024 Indication Detailed [...] 14 oz EFW by: Hadlock (HC-AC-FL) Extended Geologic Technician 5.9 mm CM 6.1 mm 74% Nicolaides [...] normal LVOT view: normal 3-vessel view: normal 2-rtoznc-zcnbklb view: normal Heart / Thorax Situs: situs [...] Read By: Silvana Johnson M.D. MATERNAL MEDICINE [facility] Radiology Study observation (narrative) [facility]oly 11-01-2024 ROSA Telephone (ENDOAL) ----- SARAVAL N ([id number]) 2000 F Date Time Provider Department 11/01/24 [...] pen 22 units at bedtime - Insulin Patterson, Disposable, (PEN NEEDLE) 32 gauge x 5/32 [...] Encounter Status:Closed by LALITO ROCHA on 11/01/24 [facility] CNOVon 10-20-2024 CNOV Office Visit (UCWSTR ) ----- VAL RUIZ ([id number]) 2000 F Date Time Provider Department 10/20/24 9:15 AM ARLETH GILLESPIE [facility] During your visit today, we recorded the following information about you: Temperature Pulse Respiration Blood pressure 97.5 degrees 82/minute 16/minute 122/70 Weight 80.2 kg Arleth Gillespie PA-C 10/20/2024 9:35 AM Signed This note was created using [email or web address]. Subjective Val Ruiz is a 24 year [...] 08/03/2024 A (more content not included)... Normal [facility] 10-20-2024 ROSA Telephone (ENDOAL) ----- VAL RUIZ ([id number]) 2000 F Date Time Provider Department 10/20/24 [...] Encounter Status:Closed by JACINTA OSCAR on 10/20/24 [facility] 10-15-2024 CNPN Telephone (ENDOAL) ----- VAL RUIZ ([id number]) 2000 F Date Time Provider Department 10/15/24 [...] logs with instructions to email weekly to [email or web address] Patient advised that she signed a CARMENZA for her records to be sent to [facility]. First available appointment is 10/29/2024 Please advise for scheduling. Thank you Lalito Rocha DO 10/17/2024 9:21 AM Signed Please advise pt to start checking her BG fasting and 2 hour post meal and forward me these numbers next week. She should be scheduled next available f/u- Thanks Jacinta Mantilla 10/19/2024 11:22 AM Signed Left voicemail for patient to call [phone] Rocha. Jacinta Oscar [...] Encounter Status:Closed by JACINTA OSCAR on 10/16/24 [facility] 10-13-2024 CNPN Telephone (ENDOAL) ----- VAL RUIZ ([id number]) 2000 F Date Time Provider Department 10/13/24 LALITO ROCHA During your visit today, we recorded the following information about you: Jacinta Oscar 10/13/2024 10:07 AM Signed Left voicemail for patient to call [phone] (direct line) to Dr. Rocha's office to [...] Encounter Status:Closed by JACINTA OSCAR on 10/13/24 [facility] 10-12-2024 ROSA Telephone (ENDOAL) ----- VAL RUIZ ([id number]) 2000 F Date Time Provider Department 10/12/24 LALITO ROCHA During your visit today, we recorded the following information about you: [place] 10/12/2024 11:15 AM Signed Left voicemail for patient to call [phone] to schedule appointment [address] Rocha. Allergies [...] Status:Closed by JACINTA OSCAR on 10/12/24 Normal [facility] Examination level ultrasound on 10-09-2024 Indication Early [...] 6 oz EFW by: Hadlock (HC-AC-FL) Extended Geologic Technician 6.2 mm Extremities / Bony Struc FL / HC 0.15 2% Hadlock Other Structures FHR 149 bpm Anatomy Cranium: normal Lateral ventricles: normal Choroid plexus: normal Midline falx: normal Cerebellum: normal Cisterna magna: normal Lips: normal 4-chamber view: normal RVOT view: normal LVOT view: normal 3-vessel view: normal 5-oruamc-fzkjbzn view: normal Heart / Thorax Aortic arch [...] Read By: Ly Nugent M.D. MATERNAL MEDICINE [facility] Radiology Study observation (narrative) [facility] URINE OB DIP B/Oon 5 Glucose Ql (U) Negative Neg mg/dL [facility] Interpretation and review of laboratory results Normal [facility] Protein.monoclonal (U) [Mass/Vol] Negative Neg mg/dL [facility] Abdomen/Pelvis WITH Contrast on 10-07-2024 Abdomen/Pelvis WITH Contrast [facility] Imaging Services [address] [place] [address] Abdomen/Pelvis WITH Contrast MR#: [id number] Acct: [id number] Name: VAL RUIZ Rep #: [id number] : 2000 F 24 From: Rajiv Gilbert PCP: Care Physician,No Primary Status: REG ER Study: Abdomen/Pelvis WITH Contrast Date of Exam: Exam# [id number] Ordering Dr: Jay Alvarez MD [id number] STUDY: CT ABDOMEN AND PELVIS WITH CONTRAST [...] Jay Alvarez MD; No Primary Care Physician Associate Professor Of Violin: Signed Normal [facility] CBC W/Diff, Automatedon 09-23 Absolute Lymph 1.38 X10 3/uL Normal 0.83-4.51 [facility] Comment on above: Performed By: #### L 400.0001 #### [facility] [address] [place], [address] Absolute Neut 5.1 X10 3/uL Normal 2.0-7.7 [facility] Comment on above: Performed By: #### L 400.0001 #### [facility] [address] [place], [address] Basophils/100 WBC (Bld) 0.4 % Normal 0-1 [facility] Comment on above: Performed By: #### L 400.0001 #### [facility] [address] [place], [address] Eosinophils/100 WBC (Bld) 2.8 % Normal 0-5 [facility] Comment on above: Performed By: #### L 400.0001 #### [facility] [address] [place], [address] Erythrocyte distribution width (RBC) [Ratio] 15.7 % High 11.6-14.6 [facility] Comment on above: Performed By: #### L 400.0001 #### [facility] [address] [place], [address] Hematocrit (Bld) [Volume fraction] 31.9 % Low 37-47 [facility] Comment on above: Performed By: #### L 400.0001 #### [facility] [address] [place], [address] Hemoglobin (Bld) [Mass/Vol] 10.0 g/dL Low 12.0-15.0 [facility] Comment on above: Performed By: #### L 400.0001 #### [facility] [address] [place], [address] IG% 0.300 Normal 0.0-0.9 [facility] Comment on above: Result Comment: IG% - Immature Granulocytes (promyelocytes, myelocytes and metamyelocytes) > 1% indicates that a LEFT SHIFT is Present. Performed By: #### L 400.0001 #### [facility] [address] [place], [address] Lymphocytes/100 WBC (Bld) 19.6 % Normal 19-41 [facility] Comment on above: Performed By: #### L 400.0001 #### [facility] [address] [place], [address] MCH (RBC) [Entitic mass] 28.2 pg Normal 27.0-32.0 [facility] Comment on above: Performed By: #### L 400.0001 #### [facility] [address] [place], [address] MCHC (RBC) [Mass/Vol] 31.3 g/dL Low 32-36 [facility] Comment on above: Performed By: #### L 400.0001 #### [facility] [address] [place], [address] MCV (RBC) [Entitic vol] 90.1 fL Normal 81-99 [facility] Comment on above: Performed By: #### L 400.0001 #### [facility] [address] [place], [address] Monocytes/100 WBC (Bld) 4.7 % Normal 0-10 [facility] Comment on above: Performed By: #### L 400.0001 #### [facility] [address] [place], [address] Neutrophils/100 WBC (Bld) 72.2 % High 47-70 [facility] Comment on above: Performed By: #### L 400.0001 #### [facility] [address] [place], [address] Nucleated RBC (Bld) [#/Vol] 0 10*3/uL Normal 0-5 [facility] Comment on above: Performed By: #### L 400.0001 #### [facility] [address] [place], [address] Platelet mean volume (Bld) [Entitic vol] 11.2 fL Normal 6.2-12.0 [facility] Comment on above: Performed By: #### L 400.0001 #### [facility] [address] [place], [address] Platelets (Bld) [#/Vol] 277 10*3/uL Normal 150-450 [facility] Comment on above: Performed By: #### L 400.0001 #### [facility] [address] [place], [address] RBC (Bld) [#/Vol] 3.54 10*6/uL Low 4.2-5.4 [facility] Comment on above: Performed By: #### L 400.0001 #### [facility] [address] [place], [address] RDW SD 51.7 fl High 35.1-43.9 [facility] Comment on above: Performed By: #### L 400.0001 #### [facility] [address] [place], [address] WBC (Bld) [#/Vol] 7.0 10*3/uL Normal 4.4-11.0 [facility] Comment on above: Performed By: #### L 400.0001 #### [facility] [address] [place], [address] Comprehensive Metabolic Prof ilon 10-07-2024 Albumin [Mass/Vol] 2.7 g/dL Low 3.2-5.0 [facility] Comment on above: Performed By: #### L 400.0001 #### [facility] [address] [place], [address] Albumin/Globulin [Mass ratio] 0.5 {ratio} Low 0.9-2.4 [facility] Comment on above: Performed By: #### L 400.0001 #### [facility] [address] [place], [address] ALK P 68 U/L Normal 45-117 [facility] Comment on above: Performed By: #### L 400.0001 #### [facility] [address] [place], [address] ALT [Catalytic activity/Vol] 10 U/L Low 13-56 [facility] Comment on above: Performed By: #### L 400.0001 #### [facility] [address] [place], [address] AST [Catalytic activity/Vol] 11 U/L Low 15-37 [facility] Comment on above: Performed By: #### L 400.0001 #### [facility] [address] [place], [address] Bilirubin [Mass/Vol] 0.30 mg/dL Normal 0.20-1.00 [facility] Comment on above: Result Comment: For patients on eltrombopag therapy, use of Dimension [place] TBIL is not recommended. Performed By: #### L 400.0001 #### [facility] [address] [place], [address] BUN/CRE 10.2 RATIO Normal 10-20 [facility] Comment on above: Performed By: #### L 400.0001 #### [facility] [address] [place], [address] CA,Total 9.0 mg/dL Normal 8.5-10.1 [facility] Comment on above: Performed By: #### L 400.0001 #### [facility] [address] [place], [address] Chloride [Moles/Vol] 106 mmol/L Normal 98-107 [facility] Comment on above: Performed By: #### L 400.0001 #### [facility] [address] [place], [address] CO2 [Moles/Vol] 22.0 mmol/L Normal 21.0-32.0 [facility] Comment on above: Performed By: #### L 400.0001 #### [facility] [address] [place], [address] Creatinine [Mass/Vol] 0.59 mg/dL Normal 0.55-1.02 [facility] Comment on above: Result Comment: The validity of the calculated GFR GFRAA in patients over 70 years has not been determined. Clinical correlation is essential. Performed By: #### L 400.0001 #### [facility] [address] [place], [address] ECRCL 136.26 ml/min Normal [facility] Comment on above: Performed By: #### L 400.0001 #### [facility] [address] [place], [address] EST GFR - AA 161 mL/min Normal >60 [facility] Comment on above: Result Comment: Afri can Martiniquais GFR Calc Performed By: #### L 400.0001 #### [facility] [address] [place], [address] GAP 8 Normal 5-15 [facility] Comment on above: Performed By: #### L 400.0001 #### [facility] [address] [place], [address] GFR/1.73 sq M.predicted among non-blacks MDRD (S/P/Bld) [Vol rate/Area] 133 mL/min/{1.73_m2} Normal >60 [facility] Comment on above: Result Comment: Non- GFR Calc Performed By: #### L 400.0001 #### [facility] [address] [place], [address] Globulin (S) [Mass/Vol] 5.0 g/dL High 2.2-4.2 [facility] Comment on above: Performed By: #### L 400.0001 #### [facility] [address] [place], [address] Glucose [Mass/Vol] 139 mg/dL High 74-106 [facility] Comment on above: Result Comment: Fast ing Glucose result greater than or equal to 126 mg/dL suggests DIABETES MELLITUS per A.D.A. criteria. Performed By: #### L 400.0001 #### [facility] [address] [place], [address] Potassium [Moles/Vol] 3.5 mmol/L Normal 3.5-5.1 [facility] Comment on above: Performed By: #### L 400.0001 #### [facility] [address] [place], [address] Sodium [Moles/Vol] 136 mmol/L Normal 136-145 [facility] Comment on above: Performed By: #### L 400.0001 #### [facility] [address] [place], [address] T PROT 7.7 g/dL Normal 6.4-8.2 [facility] Comment on above: Performed By: #### L 400.0001 #### [facility] [address] [place], [address] Urea nitrogen [Mass/Vol] 6 mg/dL Low 7-18 [facility] Comment on above: Performed By: #### L 400.0001 #### [facility] [address] [place], [address] Emergency Department Summary on 10-07-2024 Emergency Department Summary [facility] Medical Records Department [address] [place] [address] Emergency Department Summary 10/07/24 MR#: [id number] Acct: [id number] Name: VAL RUIZ Rep #: [id number] : 2000 24 From: Jay Alvarez MD PCP: Care Physician,No Primary Status:REG ER Location: ED ADDENDUM by Dr. Maciel Campos DO on 10/07/24 at 9578 Patient's case signed out to me to [...] discuss the case with Dr. Carlin her [employer]TENANCE. Called back Dr. Carlin and discussed the results with her and she states that she can go home and follow-up with her in the office. She is recommending Tylenol as needed and heat for symptomatic control. Patient is agreeable this plan all question concerns answered she was discharged home in stable condition. 10/07/24 7348 Cosigner Signature (if applicable): cc: No Primary [...] any imaging currently until after discussion with SHE[employer]INTENANCE. She usually sees the open source developer Kati Rolle at the [facility]. I reviewed her laboratory work and [...] review. Kalebina (more content not included)... Normal [facility] Lipaseon 10-07-2024 Lipase [Catalytic activity/Vol] 27 U/L Normal 13-75 [facility] Comment on above: Result Comment: Di delgadillo note: LIPASE revised reference range effective 23. New Lipase methodology. Expected to produce lower values than the previous assay method. NEW Reference Range: 13 - 75 U/L Performed By: #### L 501.2450, L100.0100, L500.4050 #### [facility] [address] [place], [place], [id number] Urinalysis, Completeon 10-07 BACTERIA 3+ /hpf Normal None Seen [facility] Comment on above: Order Comment: DARREN CTOR TO SPECIFY Performed By: #### L 400.0001 #### [facility] [address] [place], [address] EPI,TRANSITION 0-5 SEEN Normal 0-5 [facility] Comment on above: Order Comment: DARREN CTOR TO SPECIFY Performed By: #### L 400.0001 #### [facility] [address] [place], [address] WBC 0-5 SEEN Normal 0-5 [facility] Comment on above: Order Comment: COLLE CTOR TO SPECIFY Performed By: #### L 400.0001 #### [facility] [address] [place], [address] EPI,SQUAMOUS 5-10 SEEN Normal 5-10 [facility] Comment on above: Order Comment: COLLE CTOR TO SPECIFY Performed By: #### L 400.0001 #### [facility] [address] [place], [address] Mucus Ql (Urine sed) 0 SEEN Normal [facility] Comment on above: Order Comment: COLLE CTOR TO SPECIFY Performed By: #### L 400.0001 #### [facility] [address] [place], [address] RBC 0 SEEN Normal 0-5 [facility] Comment on above: Order Comment: COLLE CTOR TO SPECIFY Performed By: #### L 400.0001 #### [facility] [address] [place], [address] CBC W/Diff, Automatedon -09 25-2024 Absolute Lymph 1.41 X10 3/uL Normal 0.83-4.51 [facility] Comment on above: Performed By: #### L 501.2450, L100.0100, L500.4050 #### [facility] [address] [place], [address] Absolute Neut 5.1 X10 3/uL Normal 2.0-7.7 [facility] Comment on above: Performed By: #### L 501.2450, L100.0100, L500.4050 #### [facility] [address] [place], [address] Basophils/100 WBC (Bld) 0.6 % Normal 0-1 [facility] Comment on above: Performed By: #### L 501.2450, L100.0100, L500.4050 #### [facility] [address] [place], [address] Eosinophils/100 WBC (Bld) 3.9 % Normal 0-5 [facility] Comment on above: Performed By: #### L 501.2450, L100.0100, L500.4050 #### [facility] [address] [place], [address] Erythrocyte distribution width (RBC) [Ratio] 15.7 % High 11.6-14.6 [facility] Comment on above: Performed By: #### L 501.2450, L100.0100, L500.4050 #### [facility] [address] [place], [address] Hematocrit (Bld) [Volume fraction] 31.3 % Low 37-47 [facility] Comment on above: Performed By: #### L 501.2450, L100.0100, L500.4050 #### [facility] [address] [place], [address] Hemoglobin (Bld) [Mass/Vol] 10.0 g/dL Low 12.0-15.0 [facility] Comment on above: Performed By: #### L 501.2450, L100.0100, L500.4050 #### [facility] [address] [place], [address] IG% 0.400 Normal 0.0-0.9 [facility] Comment on above: Result Comment: IG% - Immature Granulocytes (promyelocytes, myelocytes and metamyelocytes) > 1% indicates that a LEFT SHIFT is Present. Performed By: #### L 501.2450, L100.0100, L500.4050 #### [facility] [address] [place], [address] Lymphocytes/100 WBC (Bld) 19.6 % Normal 19-41 [facility] Comment on above: Performed By: #### L 501.2450, L100.0100, L500.4050 #### [facility] [address] [place], [address] MCH (RBC) [Entitic mass] 28.5 pg Normal 27.0-32.0 [facility] Comment on above: Performed By: #### L 501.2450, L100.0100, L500.4050 #### [facility] [address] [place], [address] MCHC (RBC) [Mass/Vol] 31.9 g/dL Low 32-36 [facility] Comment on above: Performed By: #### L 501.2450, L100.0100, L500.4050 #### [facility] [address] [place], [address] MCV (RBC) [Entitic vol] 89.2 fL Normal 81-99 [facility] Comment on above: Performed By: #### L 501.2450, L100.0100, L500.4050 #### [facility] [address] [place], [address] Monocytes/100 WBC (Bld) 5.5 % Normal 0-10 [facility] Comment on above: Performed By: #### L 501.2450, L100.0100, L500.4050 #### [facility] [address] [place], [address] Neutrophils/100 WBC (Bld) 70.0 % Normal 47-70 [facility] Comment on above: Performed By: #### L 501.2450, L100.0100, L500.4050 #### [facility] [address] [place], [address] Nucleated RBC (Bld) [#/Vol] 0 10*3/uL Normal 0-5 [facility] Comment on above: Performed By: #### L 501.2450, L100.0100, L500.4050 #### [facility] [address] [place], [address] Platelet mean volume (Bld) [Entitic vol] 11.0 fL Normal 6.2-12.0 [facility] Comment on above: Performed By: #### L 501.2450, L100.0100, L500.4050 #### [facility] [address] [place], [address] Platelets (Bld) [#/Vol] 240 10*3/uL Normal 150-450 [facility] Comment on above: Performed By: #### L 501.2450, L100.0100, L500.4050 #### [facility] [address] [place], [address] RBC (Bld) [#/Vol] 3.51 10*6/uL Low 4.2-5.4 [facility] Comment on above: Performed By: #### L 501.2450, L100.0100, L500.4050 #### [facility] [address] [place], [address] RDW SD 50.5 fl High 35.1-43.9 [facility] Comment on above: Performed By: #### L 501.2450, L100.0100, L500.4050 #### [facility] [address] [place], [address] WBC (Bld) [#/Vol] 7.2 10*3/uL Normal 4.4-11.0 [facility] Comment on above: Performed By: #### L 501.2450, L100.0100, L500.4050 #### [facility] [address] [place], [address] Comprehensive Metabolic Prof ilon 10-05-2024 Albumin [Mass/Vol] 2.6 g/dL Low 3.2-5.0 [facility] Comment on above: Performed By: #### L 501.2450, L100.0100, L500.4050 #### [facility] [address] [place], [address] Albumin/Globulin [Mass ratio] 0.5 {ratio} Low 0.9-2.4 [facility] Comment on above: Performed By: #### L 501.2450, L100.0100, L500.4050 #### [facility] [address] [place], [address] ALK P 68 U/L Normal 45-117 [facility] Comment on above: Performed By: #### L 501.2450, L100.0100, L500.4050 #### [facility] [address] [place], [address] ALT [Catalytic activity/Vol] 10 U/L Low 13-56 [facility] Comment on above: Performed By: #### L 501.2450, L100.0100, L500.4050 #### [facility] [address] [place], [address] AST [Catalytic activity/Vol] 20 U/L Normal 15-37 [facility] Comment on above: Result Comment: Slig ht Hemolysis, Result may be falsely increased. Performed By: #### L 501.2450, L100.0100, L500.4050 #### [facility] [address] [place], [address] Bilirubin [Mass/Vol] 0.50 mg/dL Normal 0.20-1.00 [facility] Comment on above: Result Comment: For patients on eltrombopag therapy, use of Dimension [place] TBIL is not recommended. Performed By: #### L 501.2450, L100.0100, L500.4050 #### [facility] [address] [place], [address] BUN/CRE 10.6 RATIO Normal 10-20 [facility] Comment on above: Performed By: #### L 501.2450, L100.0100, L500.4050 #### [facility] [address] [place], [address] CA,Total 9.0 mg/dL Normal 8.5-10.1 [facility] Comment on above: Performed By: #### L 501.2450, L100.0100, L500.4050 #### [facility] [address] [place], [address] Chloride [Moles/Vol] 105 mmol/L Normal 98-107 [facility] Comment on above: Performed By: #### L 501.2450, L100.0100, L500.4050 #### [facility] [address] [place], [address] CO2 [Moles/Vol] 23.0 mmol/L Normal 21.0-32.0 [facility] Comment on above: Performed By: #### L 501.2450, L100.0100, L500.4050 #### [facility] [address] [place], [address] Creatinine [Mass/Vol] 0.57 mg/dL Normal 0.55-1.02 [facility] Comment on above: Result Comment: The validity of the calculated GFR GFRAA in patients over 70 years has not been determined. Clinical correlation is essential. Performed By: #### L 501.2450, L100.0100, L500.4050 #### [facility] [address] [place], [address] ECRCL 140.65 ml/min Normal [facility] Comment on above: Performed By: #### L 501.2450, L100.0100, L500.4050 #### [facility] [address] [place], [address] EST GFR - AA 167 mL/min Normal >60 [facility] Comment on above: Result Comment: Afri can Martiniquais GFR Calc Performed By: #### L 501.2450, L100.0100, L500.4050 #### [facility] [address] [place], [address] GAP 8 Normal 5-15 [facility] Comment on above: Performed By: #### L 501.2450, L100.0100, L500.4050 #### [facility] [address] [place], [address] GFR/1.73 sq M.predicted among non-blacks MDRD (S/P/Bld) [Vol rate/Area] 138 mL/min/{1.73_m2} Normal >60 [facility] Comment on above: Result Comment: Non- GFR Calc Performed By: #### L 501.2450, L100.0100, L500.4050 #### [facility] [address] [place], [address] Globulin (S) [Mass/Vol] 4.8 g/dL High 2.2-4.2 [facility] Comment on above: Performed By: #### L 501.2450, L100.0100, L500.4050 #### [facility] [address] [place], [address] Glucose [Mass/Vol] 116 mg/dL High 74-106 [facility] Comment on above: Result Comment: Fast ing Glucose result from 100 to 125 mg/dL suggests IMPAIRED HOMEOSTASIS per A.D.A. criteria. Performed By: #### L 501.2450, L100.0100, L500.4050 #### [facility] [address] [place], [address] Potassium [Moles/Vol] 3.7 mmol/L Normal 3.5-5.1 [facility] Comment on above: Result Comment: Slig ht Hemolysis, Result may be falsely increased. Performed By: #### L 501.2450, L100.0100, L500.4050 #### [facility] [address] [place], [address] Sodium [Moles/Vol] 136 mmol/L Normal 136-145 [facility] Comment on above: Performed By: #### L 501.2450, L100.0100, L500.4050 #### [facility] [address] [place], [address] T PROT 7.4 g/dL Normal 6.4-8.2 [facility] Comment on above: Performed By: #### L 501.2450, L100.0100, L500.4050 #### [facility] [address] [place], [address] Urea nitrogen [Mass/Vol] 6 mg/dL Low 7-18 [facility] Comment on above: Performed By: #### L 501.2450, L100.0100, L500.4050 #### [facility] [address] [place], [address] Emergency Department Summary on 10-05-2024 Emergency Department Summary [facility] Medical Records Department [address] [place] [address] Emergency Department Summary 10/05/24 MR#: [id number] Acct: [id number] Name: VAL RUIZ Rep #: [id number] : 2000 24 From: Lonnie Kumari DO PCP: Care Physician,No Primary Status:DEP ER Location: ED HPI History of Present Illness Chief Complaint: Abd Pain Narrative Narrative: Chief complaint and HPI: Right upper quadrant abdominal pain. 24-year-old female who is 17 weeks presents for evaluation of right upper quadrant abdominal pain. Patient does have gestational diabetes but otherwise has been unremarkable. Patient follows with [place] [employer] WORK[employer]INTENA[employer]. Patient states yesterday she developed some right [...] or pelvic pain. No vaginal bleeding. 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 Patient will follow-up in their office. She recommended heart tones as long as they are unremarkable patient stable to discharge home. heart tones 136. Patient stable to discharge home. Return precautions explained. Follow-up with SHEET MET[employer] WORKER MAINTENANCE. Tylenol as needed for pain. Impression: 1. [...] % (Auto) 70.0 Lymph % (Auto) 19.6 Dickey % (Auto) 5.5 Eos % (Auto) 3.9 [...] 09:55 IMPR (more content not included)... Normal [facility] Gallbladderon 10-05-2024 Gallbladder [facility] Imaging Services [address] [place] [address] Gallbladder MR#: [id number] Acct: [id number] Name: VAL RUIZ Rep #: [id number] : 2000 F 24 From: Felice street MD PCP: Care Physician,No Primary Status: REG ER Study: Gallbladder Date of Exam: 10/05/24 Exam# [id number] Ordering Dr: Lonnie Kumari DO [id number] STUDY: ABDOMINAL ULTRASOUND - RIGHT UPPER QUADRANT [...] Lonnie Klusty-Cortez, DO; No Primary Care Physician Associate Professor Of Violin: Signed Normal [facility] Lipaseon 10-05-2024 Lipase [Catalytic activity/Vol] 19 U/L Normal 13-75 [facility] Comment on above: Result Comment: Di delgadillo note: LIPASE revised reference range effective 23. New Lipase methodology. Expected to produce lower values than the previous assay method. NEW Reference Range: 13 - 75 U/L Performed By: #### L 501.2450, L100.0100, L500.4050 #### [facility] [address] [place], [address] CNNURSEon 09-22-2024 CNNURSE Nurse Visit (ENDIMT) ----- VAL RUIZ ([id number]) 2000 F Date Time Provider Department 09/22/24 1:00 PM JANICE COLE During your visit today, we recorded the following information about you: Janice Cole RN 09/22/2024 1:24 PM Signed DIABETES CARE AND EDUCATION VISIT Location: [place] Type of visit: In person individual PATIENT'S [...] TIME: 12:45 PM Referring Provider: ELBA KHANNA [[id number]] Allergies As of Date: 09/22/2024 Noted Allergy Reaction CEPHALEXIN 05/01/2022 2 - Rash Date Reviewed: 09/11/2024 Reviewed by: Melissa Aguilera MD - Fully Assessed Visit Diagnosis:Diet controlled gestational diabetes mellitus (GDM) in second trimester [O24.410] Order(s):CONSULT TO DIABETES EDUCATION DSME [9862235] Order #: [id number]: 2 Prescriptions as of 09/22/2024 - Blood-Glucose [...] Encounter Status:Closed by JANICE COLE on 09/22/24 [facility] Yoly 09-18-2024 ROSA Telephone (OBGYWM) ----- VAL RUIZ ([id number]) 2000 F Date Time Provider Department 09/18/24 ELBA KHANNA During your visit today, we recorded the following information about you: Elba Khanna APRN.EKG MONITOR 09/18/2024 2:08 PM Signed Please notify patient: Early 1 hour >200, consistent with GDM. Supplies ordered. Nutrition consult and diabetes consult placed. Growth ultrasounds every 4 weeks at 28 weeks ordered. Patient to bring glucose logs to next appointment. Elba Khanna APRN.Edel Armas RN 09/18/2024 2:31 PM Signed Patient notified of results, verbalizes understanding of instructions. Patient transferred to [facility] to make appointments. Edel Rios RN Allergies [...] times daily.Disp: 200 EachRfl: 8 OBSTETRIC ULTRASOUND [facility] [[id number]] Order #: [id number]: 1 STANDING CONSULT TO DIABETES EDUCATION DSME [1025122] Order #: [id number]: 2 FUTURE CONSULT TO NUTRITION THERAPY [9020] Order #: [id number]: 4 FUTURE Prescriptions as of 09/18/2024 - [...] Status:Closed by EDEL RIOS on 09/18/24 Normal [facility] GESTATIONAL GLUCOSE SCREEN, 1-HOUR, 50 GRAM, NON-FASTINGon 09-18-2024 Glucose [Mass/Vol] 312 mg/dL High 74-134 [facility] Comment on above: Order Comment: Speci men Type: BLOOD SPECIMEN Ordering Facility: [facility] Address: [address] [place] [address] Result Comment: [facility] Congress of Obstetricians and Gynecologists (Juana/Darell) guidelines state a gestational diabetes mellitus positive screen is made, in women not previously diagnosed with overt diabetes, when the 1 hr plasma glucose level is equal to or above 140 mg/dL. The [facility] [employer] [facility] recommends a 135 mg/dL cutoff. Performed By: #### 5 7021-8 #### [facility] VICTOR HUGOIA [id number] [address] [place] [address] OF [facility] CNPSirena 09-15-2024 CNPN Telephone (OBGYWM) ----- VAL RUIZ ([id number]) 2000 F Date Time Provider Department 09/15/24 [...] Diagnosis:14 weeks gestation of [Z3A.14] Order(s):OBSTETRIC ULTRASOUND [facility] [4919637] Order #: [id number]: 1 FUTURE Prescriptions as of 09/17/2024 - [...] Status:Closed by KATI ROLLE on 09/17/24 Normal [facility] nuchal translucency me asured by Ivan 09-12-2024 Indication First trimester anatomic survey Maternal obesity, BMI >30 Impression REMOTE READ The patient is referred for a first trimester anatomy scan including nuchal translucency measurement as clinically indicated. - Single, live, intrauterine . - [place] rump length measurement is consistent with the [...] view: visualized 4-chamber view with color: visualized [id number]-hmtqbvm view: normal Abdominal cord insertion: normal Stomach: [...] Read By: Ly Nugent M.D. MATERNAL MEDICINE [facility] CBC W Auto Differential pane l (Bld)on 09-11-2024 Basophils (Bld) [#/Vol] 0.03 10*3/uL Normal <0.11 [facility] Comment on above: Order Comment: Speci men Type: BLOOD SPECIMEN Ordering Facility: [facility] Address: [address] [place] [address] Performed By: #### M AT21 #### [facility] CLIA [id number] [address] [place] [address] Basophils/100 WBC (Bld) 0.5 % Normal [facility] Comment on above: Order Comment: Speci men Type: BLOOD SPECIMEN Ordering Facility: [facility] Address: [address] [place] [address] Performed By: #### M AT21 #### [facility] CLIA [id number] [address] [place] [address] Differential cell count method Nom (Bld) Auto Normal [facility] Comment on above: Order Comment: Speci men Type: BLOOD SPECIMEN Ordering Facility: [facility] Address: [address] [place] [address] Performed By: #### M AT21 #### [facility] CLIA [id number] [address] [place] [address] Eosinophils (Bld) [#/Vol] 0.21 10*3/uL Normal <0.46 [facility] Comment on above: Order Comment: Speci men Type: BLOOD SPECIMEN Ordering Facility: [facility] Address: [address] [place] [address] Performed By: #### M AT21 #### [facility] CLIA [id number] [address] [place] [address] Eosinophils/100 WBC (Bld) 3.4 % Normal [facility] Comment on above: Order Comment: Speci men Type: BLOOD SPECIMEN Ordering Facility: [facility] Address: [address] [place] [address] Performed By: #### M AT21 #### [facility] CLIA [id number] [address] [place] [address] Erythrocyte distribution width (RBC) [Ratio] 16.0 % High 11.5-15.0 [facility] Comment on above: Order Comment: Speci men Type: BLOOD SPECIMEN Ordering Facility: [facility] Address: [address] [place] [address] Performed By: #### M AT21 #### [facility] CLIA [id number] [address] [place] [address] Hematocrit (Bld) [Volume fraction] 31.4 % Low 36.0-46.0 [facility] Comment on above: Order Comment: Speci men Type: BLOOD SPECIMEN Ordering Facility: [facility] Address: [address] [place] [address] Performed By: #### M AT21 #### [facility] CLIA [id number] [address] [place] [address] Hemoglobin (Bld) [Mass/Vol] 10.1 g/dL Low 11.5-15.5 [facility] Comment on above: Order Comment: Speci men Type: BLOOD SPECIMEN Ordering Facility: [facility] Address: [address] [place] [address] Performed By: #### M AT21 #### [facility] CLIA [id number] [address] [place] [address] Immature granulocytes (Bld) [#/Vol] 10*3/uL Normal <0.10 [facility] Comment on above: Order Comment: Speci men Type: BLOOD SPECIMEN Ordering Facility: [facility] Address: [address] [place] [address] Performed By: #### M AT21 #### [facility] CLIA [id number] [address] [place] [address] Immature granulocytes/100 WBC (Bld) 0.3 % Normal [facility] Comment on above: Order Comment: Speci men Type: BLOOD SPECIMEN Ordering Facility: [facility] Address: [address] [place] [address] Performed By: #### M AT21 #### [facility] CLIA [id number] [address] [place] [address] Lymphocytes (Bld) [#/Vol] 1.85 10*3/uL Normal 1.00-4.00 [facility] Comment on above: Order Comment: Speci men Type: BLOOD SPECIMEN Ordering Facility: [facility] Address: [address] [place] [address] Performed By: #### M AT21 #### [facility] CLIA [id number] [address] [place] [address] Lymphocytes/100 WBC (Bld) 30.1 % Normal [facility] Comment on above: Order Comment: Speci men Type: BLOOD SPECIMEN Ordering Facility: [facility] Address: [address] [place] [address] Performed By: #### M AT21 #### [facility] CLIA [id number] [address] [place] [address] MCH (RBC) [Entitic mass] 28.2 pg Normal 26.0-34.0 [facility] Comment on above: Order Comment: Speci men Type: BLOOD SPECIMEN Ordering Facility: [facility] Address: [address] [place] [address] Performed By: #### M AT21 #### [facility] CLIA [id number] [address] [place] [address] MCHC (RBC) [Mass/Vol] 32.2 g/dL Normal 30.5-36.0 [facility] Comment on above: Order Comment: Speci men Type: BLOOD SPECIMEN Ordering Facility: [facility] Address: [address] [place] [address] Performed By: #### M AT21 #### [facility] CLIA [id number] [address] [place] [address] MCV (RBC) [Entitic vol] 87.7 fL Normal 80.0-100.0 [facility] Comment on above: Order Comment: Speci men Type: BLOOD SPECIMEN Ordering Facility: [facility] Address: [facility] [address] [place] [address] Performed By: #### M AT21 #### [facility] CLIA [id number] [address] [place] [address] Monocytes (Bld) [#/Vol] 0.34 10*3/uL Normal <0.87 [facility] Comment on above: Order Comment: Speci men Type: BLOOD SPECIMEN Ordering Facility: [facility] Address: [address] [place] [address] Performed By: #### M AT21 #### [facility] CLIA [id number] [address] [place] [address] Monocytes/100 WBC (Bld) 5.5 % Normal [facility] Comment on above: Order Comment: Speci men Type: BLOOD SPECIMEN Ordering Facility: [facility] Address: [address] [place] [address] Performed By: #### M AT21 #### [facility] CLIA [id number] [address] [place] [address] Neutrophils (Bld) [#/Vol] 3.69 10*3/uL Normal 1.45-7.50 [facility] Comment on above: Order Comment: Speci men Type: BLOOD SPECIMEN Ordering Facility: [facility] Address: [address] [place] [address] Performed By: #### M AT21 #### [facility] CLIA [id number] [address] [place] [address] Neutrophils/100 WBC (Bld) 60.2 % Normal [facility] Comment on above: Order Comment: Speci men Type: BLOOD SPECIMEN Ordering Facility: [facility] Address: [address] [place] [address] Performed By: #### M AT21 #### [facility] CLIA [id number] [address] [place] [address] Nucleated RBC (Bld) [#/Vol] 10*3/uL Normal <0.01 [facility] Comment on above: Order Comment: Speci men Type: BLOOD SPECIMEN Ordering Facility: [facility] Address: [address] [place] [address] Performed By: #### M AT21 #### [facility] CLIA [id number] [address] [place] [address] Nucleated RBC/100 WBC (Bld) [Ratio] 0.0 /100 WBC Normal [facility] Comment on above: Order Comment: Speci men Type: BLOOD SPECIMEN Ordering Facility: [facility] Address: [address] [place] [address] Performed By: #### M AT21 #### [facility] CLIA [id number] [address] [place] [address] Platelet mean volume (Bld) [Entitic vol] 10.1 fL Normal 9.0-12.7 [facility] Comment on above: Order Comment: Speci men Type: BLOOD SPECIMEN Ordering Facility: [facility] Address: [address] [place] [address] Performed By: #### M AT21 #### [facility] CLIA [id number] [address] [place] [address] Platelets (Bld) [#/Vol] 303 10*3/uL Normal 150-400 [facility] Comment on above: Order Comment: Speci men Type: BLOOD SPECIMEN Ordering Facility: [facility] Address: [address] [place] [address] Performed By: #### M AT21 #### [facility] CLIA [id number] [address] [place] [address] RBC (Bld) [#/Vol] 3.58 10*6/uL Low 3.90-5.20 [facility] Comment on above: Order Comment: Speci men Type: BLOOD SPECIMEN Ordering Facility: [facility] Address: [address] [place] [address] Performed By: #### M AT21 #### [facility] CLIA [id number] [address] [place] [address] WBC (Bld) [#/Vol] 6.14 10*3/uL Normal 3.70-11.00 [facility] Comment on above: Order Comment: Speci men Type: BLOOD SPECIMEN Ordering Facility: [facility] Address: [address] [place] [address] Performed By: #### M AT21 #### [facility] CLIA [id number] [address] [place] [address] nuchal translucency me asured by USon 09-11-2024 Radiology Study observation (narrative) [facility] HBV surface Ag Ser Qlon 08-24 HBV surface Ag Ql (S) Negative Normal Negative [facility] Comment on above: Order Comment: Speci men Type: BLOOD SPECIMEN Ordering Facility: [facility] Address: [address] [place] [address] Performed By: #### 5 7021-8 #### [facility] CLIA [id number] [address] [place] [address] [place] HCV Ab Ser Qlon 09-11-2024 HCV Ab Ql (S) Negative Normal Negative [facility] Comment on above: Order Comment: Speci men Type: BLOOD SPECIMEN Ordering Facility: [facility] Address: [address] [place] [address] Result Comment: The result suggests no evidence of active infection with Hepatitis C virus. Should recent infection be suspected, repeat testing may be considered 4-6 weeks after this draw. Performed By: #### 1 6128-1 #### [facility] CLIA [id number] [address] [place], [place] [address] [place] [address] [place] HIV 1+2 Ab IA Qlon HIV 1 and 2 Ab IA.rapid Nom (S/P/Bld) Normal [facility] Comment on above: Order Comment: Speci men Type: BLOOD SPECIMEN Ordering Facility: [facility] Address: [address] [place] [address] Result Comment: Test not indicated. Performed By: #### 5 7021-8 #### [facility] CLIA [id number] [address] [place] [address] [place] HIV 1+2 Ab+HIV1 p24 Ag IA Ql Non-Reactive Normal Nonreactive [facility] Comment on above: Order Comment: Speci men Type: BLOOD SPECIMEN Ordering Facility: [facility] Address: [address] [place] [address] Performed By: #### 5 7021-8 #### [facility] CLIA [id number] [address] [place] [address] OF [place] HIV immunoassay testing algorithm interpretation (S/P/Bld) [Interp] Normal [facility] Comment on above: Order Comment: Speci men Type: BLOOD SPECIMEN Ordering Facility: [facility] Address: [address] [place] [address] Result Comment: No e vidence of HIV-1 or HIV-2 infection. Should recent infection be suspected, repeat testing may be considered 2-3 weeks after this draw. [place] Rev. Code 3701.243(E): This information has been [...] diagnoses. Performed By: #### 5 7021-8 #### [facility] CLIA [id number] [address] [place] [address] [place] HbA1c (Bld)on 09-11-2024 Average glucose Estimated from glycated hemoglobin (Bld) [Mass/Vol] 120 mg/dL Normal [facility] Comment on above: Order Comment: Speci men Type: BLOOD SPECIMEN Ordering Facility: [facility] Address: [address] [place] [address] Result Comment: eAG: (Estimated average glucose) is a calculated value from HgbA1c and is medical field representative of the average blood glucose level in the last 2-3 month period. Performed By: #### 5 7021-8 #### [facility] CLIA [id number] [address] [place] [address] [place] HbA1c (Bld) [Mass fraction] 5.8 % High 4.3-5.6 [facility] Comment on above: Order Comment: Gerhard kim Type: BLOOD SPECIMEN Ordering Facility: [facility] Address: [address] [place] [address] Result Comment: Amer [place] Diabetes Association guidelines indicate that patients with HgbA1c in the range 5.7-6.4% are at increased risk for development of diabetes, and intervention by lifestyle modification may be beneficial. HgbA1c greater or equal to 6.5% is considered diagnostic of diabetes. Performed By: #### 5 7021-8 #### [id number] [address] [place] [address] [place] [id number] PLUSon 09-11-2024 Cell-free DNA./Cell-free DNA.total Dosage of chromosome-specific cfDNA (cfDNA) [Molar fraction] 12% Normal [facility] Comment on above: Order Comment: Gerhard kim Type: BLOOD SPECIMEN Ordering Facility: [facility] Address: [address] [place] [address] Performed By: #### M AT21 #### [facility] CLIA [id number] [address] [place] [address] Chr 13+18+21+X+Y aneuploidy Dosage of chromosome-specific cfDNA Ql (cfDNA) Negative Normal [facility] Comment on above: Order Comment: Gerhard kim Type: BLOOD SPECIMEN Ordering Facility: [facility] Address: [address] [place] [address] Performed By: #### M AT21 #### [facility] CLIA [id number] [address] [place] [address] Chr 21 trisomy Dosage of chromosome-specific cfDNA Ql (cfDNA) Negative Normal [facility] Comment on above: Order Comment: Speci men Type: BLOOD SPECIMEN Ordering Facility: [facility] Address: [address] [place] [address] Performed By: #### M AT21 #### [facility] CLIA [id number] [address] [place] [address] Chr X and Y aneuploidy risk Sequencing Ql (cfDNA) [Interp] Not detected Normal [facility] Comment on above: Order Comment: Speci men Type: BLOOD SPECIMEN Ordering Facility: [facility] Address: [address] [place] [address] Result Comment: Not Detected Not Detected Performed By: #### M AT21 #### [facility] CLIA [id number] [address] [place] [address] Citation Max (Reference lab test) Comment Normal [facility] Comment on above: Order Comment: Speci men Type: BLOOD SPECIMEN Ordering Facility: [facility] Address: [address] [place] [address] Result Comment: 1. P carolina CHAMBERLAIN, et al. Lizzie Med. 2012;14(3):296-305. 2. Gregory MAE, et al. Prenat Diag. 2013;33(6):591-597. 3. Papo C, et al. Clin Chem. 2015 Apr;61(4):608-616. 4. Rory CHAMBERLAIN, et al. Lizzie Med. 2011;13(11):913-920. 5. ACOG/SMFM Practice Bulletin No. 226, Jun 2020. Performed By: #### M AT21 #### [facility] CLIA [id number] [address] [place] [address] Gestational age Estimated from conception date Scott Normal [facility] Comment on above: Order Comment: Speci men Type: BLOOD SPECIMEN Ordering Facility: [facility] Address: [address] [place] [address] Performed By: #### M AT21 #### [facility] CLIA [id number] [address] [place] [address] GESTATIONALAGE AGE > OR = 9W Yes Normal [facility] Comment on above: Order Comment: Gerhard kim Type: BLOOD SPECIMEN Ordering Facility: [facility] Address: [address] [place] [address] Performed By: #### M AT21 #### [facility] CLIA [id number] [address] [place] [address] Laboratory comment Max (Report) Comment Normal [facility] Comment on above: Order Comment: Gerhard kim Type: BLOOD SPECIMEN Ordering Facility: [facility] Address: [address] [place] [address] Result Comment: The MaterniT(R) 21 PLUS laboratory-developed test (LDT) analyzes circulating cell-free DNA from a maternal blood sample. This test is used for screening purposes and not diagnostic. Clinical correlation is recommended. Validation data on twin pregnancies is limited and the ability of this test to detect aneuploidy in higher multiple gestations has not yet been validated. Performed By: #### M AT21 #### [facility] CLIA [id number] [address] [place] [id number] instructional technology director name Nom (Provider) Comment Normal [facility] Comment on above: Order Comment: Gerhard kim Type: BLOOD SPECIMEN Ordering Facility: [facility] Address: [address] [place] [address] Result Comment: This specimen showed an expected representation of chromosome 21, 18 and 13 material. Clinical correlation is suggested. Comment Vasile Carmichael MD, PhD, Director, [employer] Performed By: #### M AT21 #### [facility] CLIA [id number] [address] [place] [id number] LIMITATIONS OF THE TEST Comment Normal [facility] Comment on above: Order Comment: Gerhard kim Type: BLOOD SPECIMEN Ordering Facility: [facility] Address: [address] [place] [address] Result Comment: Ryne brian the results of [...] Fragmin(R)). Performed By: #### M AT21 #### [facility] CLIA [id number] [address] [place] [address] Monosomy X risk Dosage of chromosome-specific cfDNA Ql (Plasma cell-free+WBC DNA) [Interp] Not detected Normal [facility] Comment on above: Order Comment: Speci men Type: BLOOD SPECIMEN Ordering Facility: [facility] Address: [address] [place] [address] Performed By: #### M AT21 #### [facility] CLIA [id number] [address] [place] [address] NEGATIVE PREDICTIVE VALUE Note Normal [facility] Comment on above: Order Comment: Speci men Type: BLOOD SPECIMEN Ordering Facility: [facility] Address: [address] [place] [address] Result Comment: The Negative Predictive Value (NPV) for trisomy 21, 18, and 13 is greater than 99%. The NPV for SCA and ESS cannot be calculated as SCA and ESS are only reported when an abnormality is detected. Performed By: #### M AT21 #### [facility] CLIA [id number] [address] [place] [id number] NOTE Comment Normal [facility] Comment on above: Order Comment: Bookershriners children's Type: BLOOD SPECIMEN Ordering Facility: [facility] Address: [address] [place] [address] Result Comment: See Notes [employer] is a subsidiary of [employer], using the brand [employer]. This test was developed and its performance characteristics determined by [employer]. It has not been cleared or approved by the Food and Drug Administration. This laboratory is certified under the Clinical Laboratory Improvement Amendments (CLIA) as qualified to perform high complexity clinical laboratory testing and accredited by the [employer] (CAP). If there is future clinical need for adding MaterniT GENOME testing, this specimen will be available until term. [facility] samples will not be retained beyond 60 days. [facility] patients will have to send a new sample for re-sequencing ([facility] Test Code: [id number]). Performed By: #### M AT21 #### [facility] CLIA [id number] [address] [place] [address] PERFORMANCE CHARACTERISTICS Note Normal [facility] Comment on above: Order Comment: Gerhard men Type: BLOOD SPECIMEN Ordering Facility: [facility] Address: [address] [place] [address] Result Comment: ! Sex ! Accuracy: 99.4% ! ! ! ! Region (associated syndrome) ! Est. Sens# ! Est. Spec ! ! ! ! Trisomy 21 (Down Syndrome) ! 99.1% ! 99.9% ! ! ! ! Trisomy 18 (Ebllamy Syndrome) ! >99.9% ! 99.6% ! ! ! ! Trisomy 13 (Patau Syndrome) ! 91.7% ! 99.7% ! ! ! ! Sex Chromosome Aneuploidies## ! 96.2% ! 99.7% ! ! ! * As reported in [facility] database nstd37 [https://www.ncbi.nlm.nih.gov/dbvar/studies/nstd37/ ] # Estimated Sensitivity. [...] only. Performed By: #### M AT21 #### [facility] CLIA [id number] [address] [place] [address] POSITIVE PREDICTIVE VALUE N/A Normal [facility] Comment on above: Order Comment: Speci men Type: BLOOD SPECIMEN Ordering Facility: [facility] Address: [address] [place] [address] Performed By: #### M AT21 #### [facility] CLIA [id number] [address] [place] [address] Reference Lab Test Method Comment Normal [facility] Comment on above: Order Comment: Speci men Type: BLOOD SPECIMEN Ordering Facility: [facility] Address: [address] [place] [address] Result Comment: See Notes Circulating cell-free DNA [...] 22. Performed By: #### M AT21 #### [facility] CLIA [id number] [address] [place] [address] Sex Dosage of chromosome-specific cfDNA Nom (cfDNA) Comment Normal [facility] Comment on above: Order Comment: Speci men Type: BLOOD SPECIMEN Ordering Facility: [facility] Address: [address] [place] [address] Result Comment: Cons istent with Male Performed By: #### M AT21 #### [facility] CLIA [id number] [address] [place] [address] Test performance information Max (Unsp spec) Comment Normal [facility] Comment on above: Order Comment: Gerhard kim Type: BLOOD SPECIMEN Ordering Facility: [facility] Address: [address] [place] [address] Result Comment: The performance characteristics of the MaterniT(R) 21 PLUS laboratory-developed test (LDT) have been determined in a clinical validation study with women at increased risk for chromosomal aneuploidy.[1-4] Performed By: #### M AT21 #### [facility] CLIA [id number] [address] [place] [address] Trisomy 13 risk Dosage of chromosome-specific cfDNA Ql (cfDNA) [Interp] Negative Normal [facility] Comment on above: Order Comment: Gerhard kim Type: BLOOD SPECIMEN Ordering Facility: [facility] Address: [address] [place] [address] Performed By: #### M AT21 #### [facility] CLIA [id number] [address] [place] [address] Trisomy 18 risk Dosage of chromosome-specific cfDNA Ql (Plasma cell-free+WBC DNA) [Interp] Negative Normal [facility] Comment on above: Order Comment: Gerhard kim Type: BLOOD SPECIMEN Ordering Facility: [facility] Address: [address] [place] [address] Performed By: #### M AT21 #### [facility] CLIA [id number] [address] [place] [address] RUBELLA IGG ANTIBODYon 09-11 RUBELLA IGG AB, QUAL Positive Normal Positive [facility] Comment on above: Order Comment: Gerhard kim Type: BLOOD SPECIMEN Ordering Facility: [facility] Address: [address] [place] [address] Result Comment: The result suggests recent or past exposure to Rubella virus or history of Rubella vaccination. Positive result may also be seen due to presence of passively-transferred antibodies. Please correlate with patient's history. Performed By: #### 5 7021-8 #### [facility] CLIA [id number] [address] [place] [address] [place] Reagin and Treponema pallidu m IgG and IgM [Interp]on 09-11-2024 T. pallidum IgG+IgM IA Ql (S) Non-Reactive Normal Nonreactive [facility] Comment on above: Order Comment: Speci men Type: BLOOD SPECIMEN Ordering Facility: [facility] Address: [address] [place] [address] Performed By: #### 5 7021-8 #### [facility] CLIA [id number] [address] [place] [address] [place] Reagin+T pallidum IgG+IgM Se rPl-Impon 09-11-2024 Reagin and Treponema pallidum IgG and IgM [Interp] Cannot exclude recent Treponemal infection if specimen collected within 7-10 days after appearance of suspect lesions or 2-3 weeks after an exposure. Clinical correlation is required. Normal [facility] Comment on above: Order Comment: Speci men Type: BLOOD SPECIMEN Ordering Facility: [facility] Address: [address] [place] [address] Performed By: #### 5 7021-8 #### [facility] CLIA [id number] [address] [place] [address] [place] TYPE + SCREEN PRENATALon ABO A Normal [facility] Comment on above: Order Comment: Speci men Type: BLOOD SPECIMEN Ordering Facility: [facility] Address: [address] [place] [address] Performed By: #### M AT21 #### [facility] CLIA [id number] [address] [facility] [place] [address] Rh Nom (Bld) Negative Normal [facility] Comment on above: Order Comment: Speci men Type: BLOOD SPECIMEN Ordering Facility: [facility] Address: [address] [place] [address] Performed By: #### M AT21 #### [facility] CLIA [id number] [address] [place] [address] TYPE AND SCREEN EXPIRATION 09/14/2024 23:59 Normal [facility] Comment on above: Order Comment: Speci men Type: BLOOD SPECIMEN Ordering Facility: [facility] Address: [address] [place] [address] Performed By: #### M AT21 #### [facility] CLIA [id number] [address] [place] [address] CNOVon 08-15-2024 CNOV Office Visit ([facility] ) ----- VAL RUIZ ([id number]) 2000 F Date Time Provider Department 08/15/24 2:15 PM JUNE CORONEL [facility] During your visit today, we recorded the following information about you: Temperature Pulse Respiration Blood pressure 97.3 degrees 80/minute 18/minute 122/78 Weight 76.5 kg June Coronel APRN.EKG MONITOR 08/15/2024 2:26 PM Signed This note was [...] 08/22/2024 Rou (more content not included)... Normal [facility] CNOVon 08-10-2024 CNOV Office Visit ([facility] ) ----- VAL RUIZ ([id number]) 2000 F Date Time Provider Department 08/10/24 12:30 PM YONG MEDEROS [facility] During your visit today, we recorded the following information about you: Temperature Pulse Respiration Blood pressure 98.1 degrees 90/minute 21/minute 118/70 Weight 78.4 kg Yong Mederos APRN.EKG MONITOR 08/10/2024 1:22 PM Signed Subjective HPI HPI [...] abnormality. Dictated by : MD Yong DOZIER APRN.EKG MONITOR Allergies As of Date: 08/10/2024 Noted Allergy Reaction CEPHALEXIN 05/01/2022 2 - Rash Date Reviewed: 08/10/2024 Reviewed by: Emerald Culver MA - Fully Assessed Reason for Visit: Cough [28] Cmt: Congestion, sinus pressure x 3 days Primary Visit Diagnosis:URI, acute [J06.9] Other Visit Diagnosis:Acute cough [R05.1] Order(s):XR CHEST 2V FRONTAL/LAT [[id number]] Order #: [id number]. #:[id number] fluticasone (FLONASE) 50 mcg/actuation nasal sprayUse 2 Sprays in each nostril once daily. Rinse mouth after use.Disp: 1 EachRfl: 0 Prescriptions as of 08/10/2024 - fluticasone (FLONASE) 50 mcg/actuation nasal spray Use 2 Sprays in each nostril once daily. Rinse mouth after (more content not included)... Normal [facility] XR CHEST 2V FRONTAL/LATon XR CHEST 2V [...] tissues: Unremarkable. IMPRESSION: No acute radiographic abnormality. Associate Professor Of Violin: [employer] Transcribe Date/Time: Aug 10 2024 12:46P Dictated by : NORA JIMENEZ MD This examination was interpreted and the report reviewed and electronically signed by: NORA JIMENEZ MD on Aug 10 2024 12:46PM EST [id number] Normal [facility] XR Chest PA and Lateralon Radiology Study observation (narrative) [facility] IMPRESSION: No acute radiographic abnormality. Associate Professor Of Violin: MEDHAT Transcribe Date/Time: Aug 10 2024 12:46P [...] soft tissues: Unremarkable. DIVISION OF RADIOLOGY Provider, [facility] * * *Final Report* [...] Unremarkable. IMPRESSION IMPRESSION: No acute radiographic abnormality. Associate Professor Of Violin: MEDHAT Transcribe Date/Time: Aug 10 2024 12:46P Dictated by : NORA JIMENEZ MD This examination was interpreted and the report reviewed and electronically signed by: NORA JIMENEZ MD on Aug 10 2024 12:46PM EST [facility] XR Chest PA and LateralOrder ed By: [facility]cf Provider on 08-10-2024 [facility] JASENon 08-04-2024 CNPN Telephone (OGFVWE) ----- VAL RUIZ ([id number]) 2000 F Date Time Provider Department 08/04/24 NURSE LONG GOODS DRIER FRVW [place] OGFVWE During your visit today, we recorded [...] Status:Closed by CHAPITO VENTURA on 08/04/24 Normal [facility] Bacteria Ur Culton Bacteria identified Cx Nom (U) ORGANISM ID: 1 10,000 -<50,000 CFU/ml Normal urogenital oly Normal [facility] Comment on above: Performed By: #### 6 30-4 ####[facility] LABCLIA [id number] [place] [address] [place] C. trachomatis+N. gonorrhoea e DNA PARADISE+probe Ql (Unsp spec)on 08-03-2024 C. trachomatis rRNA PARADISE+probe Ql (Unsp spec) Negative Normal Negative for Chlamydia trachomatis by amplificaton [facility] Comment on above: Order Comment: Speci men Type: SWABOrdering Facility: [facility] Address: [address] [place] [address] Performed By: #### 3 6902-5 ####[facility] LABCLIA [id number] [place] [address] [place] N. gonorrhoeae rRNA PARADISE+probe Ql (Unsp spec) Negative Normal Negative for Neisseria gonorrhoeae by amplification [facility] Comment on above: Order Comment: Speci men Type: SWABOrdering Facility: [facility] Address: [address] [place] [address] Performed By: #### 3 6902-5 ####[facility] LABCLIA [id number] [place] [address] [place] PAP TESTon 08-03-2024 ADEQUACY Normal [facility] Comment on above: Order Comment: Speci men Type: FLUID SPECIMEN Ordering Facility: [facility] Address: [address] [place] [address] Result Comment: Sati sfactory for interpretation. No endocervical component Performed By: #### L [id number] #### [facility] CLIA [id number] [address] [place] [address] [place] CASE REPORT Normal [facility] Comment on above: Order Comment: Speci men Type: FLUID SPECIMEN Ordering Facility: [facility] Address: [address] [place] [address] Result Comment: Gyne cologic Cytology Report Case: [id number] Authorizing Provider: Kati Rolle APRN.CNM Collected: 08/03/2024 02:04 PM Ordering Location: OB/Gynecology Received: 08/03/2024 04:49 PM First Screen: Zhorova, Millie, CT, ASCP Specimen: Pap Test, ThinPrep, Cervix Performed By: #### L [id number] #### [facility] CLIA [id number] [address] [place] [address] [place] CLINICAL HISTORY, CYTOLOGY, PAN RECLAIM PROCESSOR (Indicate Weeks) Normal [facility] Comment on above: Order Comment: Speci men Type: FLUID SPECIMEN Ordering Facility: [facility] Address: [address] [place] [address] Performed By: #### L [id number] #### [facility] CLIA [id number] [address] [place] [address] [place] FINAL PERFORMING LAB Normal [facility] Comment on above: Order Comment: Speci men Type: FLUID SPECIMEN Ordering Facility: [facility] Address: [address] [place] [address] Result Comment: Tech nical component, certified legal investigator screening performed at [facility], [address] [place], [place] [id number] CLIA# [id number] Diagnostic interpretation performed at [facility], [address] [place], [place] [id number] CLIA# [id number] Plumbing And Heating Mechanic: Bonifacio Trujillo M.D. Performed By: #### L [id number] #### [facility] CLIA [id number] [address] [place] [address] [place] INTERPRETATION, CYTOLOGY, PAN RECLAIM PROCESSOR Normal [facility] Comment on above: Order Comment: Speci men Type: FLUID SPECIMEN Ordering Facility: [facility] Address: [address] [place] [address] Result Comment: Nega tive for intraepithelial lesion or malignancy. Performed By: #### L [id number] #### [facility] CLIA [id number] [address] [place] [address] [place] LMP 06/10/2024 Normal [facility] Comment on above: Order Comment: Speci men Type: FLUID SPECIMEN Ordering [facility] Address: [address] [place] [address] Performed By: #### L [id number] #### [facility] CLIA [id number] [address] [place] [address] [place] PAP DISCLAIMER COMMENT The Pap Smear is a screening test for cervical cancer. False negative results occur with all screening tests, emphasizing the need for rescreening at recommended intervals, and clinical correlation. Normal [facility] Comment on above: Order Comment: Speci men Type: FLUID SPECIMEN Ordering [facility] Address: [address] [place] [address] Performed By: #### L [id number] #### [facility] CLIA [id number] [address] [place] [address] [place] PAP CORRECTIONAL PROGRAM OFFICER COMMENT This specimen has be en analyzed by the ThinPrep Imaging System, an automated imaging and review system, which assists the laboratory in evaluating cells on ThinPrep Pap tests. Following automated imaging, selected santana from every slide are reviewed by a certified legal investigator. Normal [facility] Comment on above: Order Comment: Speci men Type: FLUID SPECIMEN Ordering [facility] Address: [address] [place] [address] Performed By: #### L [id number] #### [facility] CLIA [id number] [address] [place] [id number] [place] [address] [place] POC RESEARCH KENNEL SUPERVISOR ULTRASOUNDon 08-03-20 Indication Viability; confirm cardiac activity [...] Read By: Kati Rolle CNM MATERNAL MEDICINE [facility] Radiology Study observation (narrative) [facility] CNOVon 07-24-2024 CNOV Office Visit (UCWSTR ) ----- VAL RUIZ ([id number]) 2000 F Date Time Provider Department 07/24/24 11:00 AM ARLEEN ARCOS [facility] During your visit today, we recorded the following information about you: Temperature Pulse Respiration Blood pressure 97.3 degrees 84/minute 22/minute 112/58 Weight Last Period 78.9 kg 06/15/24 Arleen Arcos APRN.EKG MONITOR 07/24/2024 11:30 AM Signed CC: Patient presents [...] Patient agreeable to treatment plan. Arleen Arcos APRN.EKG MONITOR Allergies As of Date: 07/24/2024 Noted Allergy [...] (Discontinued) Reporte (more content not included)... Normal [facility] ED FACILITY CODING SUMMARYon 07-15-2024 ED FACILITY CODING SUMMARY Facility Coding Facility Coding Summary [address] [place] [address] [id number] 07/15/2024 Patient: VAL RUIZ Sex: Female : 2000 Age: 23y Providers: DIAGNOSTIC WORKUP Chief Complaint Principal Diagnosis ICD-10 Codes PROCEDURES Procedures from Providers: Procedures from Nurses/Facility: SUPPLIES ELEVEL This is a partial abstract of information documented in the full record. Batch And Furnace Manager must use independent judgment in selecting codes. CPT copyright 2022 [employer]. All Rights Reserved. 1 of 1 [facility] ED MED ADMINISTRATION DETAIL on 07-15-2024 ED MED ADMINISTRATION DETAIL Rail Crew Member Medication Administration Record [address] [address] [id number] 07/15/2024 Patient: VAL RUIZ Sex: Female : 2000 Age: 23y MEASUREMENTS: Wt: 77.1 kg, Ht/Efrain: 58.0 in, BMI: 35.53 ALLERGIES: Keflex Medication Ordered Medication Administration Date/Time 1 of 1 [facility] ED NURSES CLINICAL NOTEon ED NURSES CLINICAL NOTE Nurse Narrative Nurse Clinical Narrative [address] [address] [id number] 07/15/2024 Patient: VAL RUIZ Sex: Female : [...] Johnson R.N. 07/15/24 17:04:37 EDT) Generated by [facility] 3 of 3 Normal [facility] ED ORDER SHEET (CPOE ONLY)on 07-15-2024 ED ORDER SHEET (CPOE ONLY) Order Sheet Order Sheet [address] [place] [address] [id number] 07/15/2024 Patient: VAL RUIZ Sex: Female : 2000 Age: 23y MEASUREMENTS: Wt: 77.1 kg, Ht/Efrain: 58.0 in, BMI: 35.53 ALLERGIES: Keflex MEDICATION/IV/DRIP/FLUID ORDERS Order Description Priority Entered Acknowledged Completed LAB ORDERS Order Description Priority Entered Acknowledged Collected Completed DIAGNOSTIC STUDY ORDERS Order Description Priority Entered Acknowledged Completed STAFF ORDERS Order Description Priority Entered Acknowledged Collected Completed 1 of 1 Normal [facility] ED SUPER BILLon 07-15-2024 ED SUPER BILL [facility] [address] [place] [address] [phone] 07/15/2024 Patient: VAL RUIZ Sex: Female : 2000 Age: 23y Item Professional Category Description Facility Code Code Quantity Fee Total Grand Total $0.00 1 of 1 Normal [facility] ED VISIT SUMMARYon ED VISIT SUMMARY Visit Overview Visit Overview [place] [address] [place] [address] [id number] 07/15/2024 Patient: VAL RUIZ Sex: Female : [...] STUDIES CLINICAL IMPRESSION 3 of 3 Normal [facility] CNOVon 07-11-2024 CNOV Office Visit (UCWSTR ) ----- SARAVAL ([id number]) 2000 F Date Time Provider Department 07/11/24 11:00 AM [facility] During your visit today, we recorded the following information about you: Temperature Pulse Respiration Blood pressure 97.7 degrees 80/minute 21/minute 110/72 Weight 76.4 kg Shu Gomez, CLEANER AND PRESSER.EKG MONITOR 07/11/2024 12:21 PM Signed Subjective Val Albert [...] RELIEF) 50 mcg/actuation nasal spray Use 1 [place] in each nostril once daily. (Patient not [...] Patient advised to notify Dr. Sanders with [facility], the provider that prescribes her medications for depression and anxiety. Patient advised that she will need to wean off some of her medications due to risks during . Patient advised to schedule and appointment with an SHEET METAL WORKER MAINTENANCE provider. Patient asks about mild uterine cramping and if this is normal. Patient advised that some uterine cramping may be normal post uterine implantation, advised on signs and symptoms to monitor for and when to seek emergency care. All patient's questions answered. Patient agreeable with plan and verbalizes understanding. Alexia Enriquez, Student RESTRICTIVE PREPARATION OPERATOR TEACHING PROVIDER (Physician/PA/CLEANER AND PRESSER) NOTE OF PERSONAL INVOLVEMENT IN CARE: I have personally seen and examined the patient and performed the medical decision-making components. I have reviewed the Advanced Practice Registered Nurse (CLEANER AND PRESSER) Student's documentation and verified the findings in the note as written. Any additions or changes are noted in bold/italics. Signature: Shu Gomez Date: 07/11/2024 Time: 12:19 PM Alexia Enriquez 07/11/2024 11:39 AM Addendum ASSESSMENT/PLAN: 1. Missed period - ICD9: 626.4, ICD10: N92.6 (primary diagnosis) POSITIVE URINE (more content not included)... Normal [facility] UA DIP,URINE HCG (POC)on Beta HCG ( test) Ql (U) Positive Abnormal Negative [facility] Comment on above: Location:[address], [place], [address] Interpretation and review of laboratory results Abnormal [facility] Grain Manager (POCT) Internal QC OK [facility] Location:[facility], [address] [place] [address], [place], [address] [facility] POINT OF CARE [facility] CNOVon 06-19-2024 CNOV Office Visit (UCWSTR ) ----- VAL RUIZ ([id number]) 2000 F Date Time Provider Department 06/19/24 11:00 AM HALEY BLACK During your visit today, we recorded the following information about you: Temperature Pulse Respiration Blood pressure 97.7 degrees 99/minute 18/minute 109/77 Weight Last Period 76 kg 06/15/24 Arleen Arcos APRN.[facility] 06/19/2024 11:35 AM Signed CC: Patient [...] RELIEF) 50 mcg/actuation nasal spray Use 1 [place] in each nostril once daily. (Patient not [...] Unremarkable. IMPRESSION IMPRESSION: No acute radiographic abnormality. Associate Professor Of Violin: MEDHAT Transcribe Date/Time: Jun 19 2024 11:31A [...] Patient agreeable to treatment plan. Arleen Arcos APRN.EKG MONITOR Allergies As of Date: 06/19/2024 Noted Allergy Reaction CEPHALEXIN 05/01/2022 2 - Rash Date Reviewed: 06/19/2024 Reviewed by: Abbey Soria LPN - Fully Assessed Reason for Visit: Cough [28] Cmt: Chest congestion, chest tightness in chest Fever [47] Cmt: Headache, bodyaches x 2 days Primary Visit Diagnosis:Acute cough [R05.1] Other Visit Diagnosis:URI, acute [J06.9] Order(s):XR CHEST 2V FRONTAL/LAT [[id number]] Order #: [id number] FUTURE COVID AND INFLUENZA A/B AND RSV PCR, ROUTINE [SQCVFLRS] Order #: [id number]. #:[id number] benzonatate (TESSALON PERLES) 100 mg capsuleTake 1 capsule by mouth (more content not included)... Normal [facility] COVID AND INFLUENZA A/B AND RSV PCR, ROUTINEon 06-19-2024 SARS-CoV-2 (COVID-19) RNA PARADISE+probe Ql (Unsp spec) SARS-COV-2 (AGENT OF COVID-19) RNA: Not detected INFLUENZA A RNA: Not detected INFLUENZA B RNA: Not detected RESPIRATORY SYNCYTIAL VIRUS (RSV) RNA: Not detected Normal [facility] Comment on above: Performed By: #### M AT21 #### [facility] CLIA [id number] [address] [place] [address] XR CHEST 2V FRONTAL/LATon XR CHEST 2V [...] tissues: Unremarkable. IMPRESSION: No acute radiographic abnormality. Associate Professor Of Violin: PSC Transcribe Date/Time: Jun 19 2024 11:31A Dictated by : CINDY WILSON MD This examination was interpreted and the report reviewed and electronically signed by: CINDY WILSON MD on Jun 19 2024 11:31AM EST [id number] Normal [facility] XR Chest PA and Lateralon IMPRESSION: No acute radiographic abnormality. Associate Professor Of Violin: [facility] Transcribe Date/Time: Jun 19 2024 11:31A [...] soft tissues: Unremarkable. DIVISION OF RADIOLOGY Provider, [facility]24 * * *Final Report* [...] Unremarkable. IMPRESSION IMPRESSION: No acute radiographic abnormality. Associate Professor Of Violin: PSCB Transcribe Date/Time: Jun 19 2024 11:31A Dictated by : CINDY WILSON MD This examination was interpreted and the report reviewed and electronically signed by: CINDY WILSON MD on Jun 19 2024 11:31AM EST [facility] Radiology Study observation (narrative) [facility] XR Chest PA and LateralOrder ed By: Ccf Provider on 06-19-2024 [facility] CNOVon 05-17-2024 CNOV Office Visit (UCUPNO ) ----- VAL RUIZ ([id number]) 2000 F Date Time Provider Department 05/17/24 1:50 PM ARIELLE ARIAS RAQUEL During your visit today, we recorded the following information about you: Temperature Pulse Respiration Blood pressure 97.8 degrees 80/minute 14/minute 114/76 Weight Last Period 75.8 kg 05/14/24 Arielle Arias APRN.EKG MONITOR 05/17/2024 2:17 PM Signed Pt will follow [...] on cough drops or hard candy. ?Take sumx-jjm-djuphqd cough and cold medicines. ?Breath in warm, [...] getting better after 3 weeks Arielle Arias, CLEANER AND PRESSER.EKG MONITOR 05/17/2024 2:23 PM Signed May 17, 2024 [...] Immunization History Administered Date(s) Administered COVID-19 vaccine ([employer] 02/22/2021 Current Medications: MUCUS RELIEF ER 600 mg 12 hr tablet TAKE 1 TABLET BY MOUTH TWICE DAILY NEEDED FOR CONGESTION QUEtiapine (SEROQUEL) 2 (more content not included)... [facility] (UCUPNO ) ----- VAL RUIZ Bety ([id number]) 2000 F Date Time Provider Department 03/23/24 [...] Immunization History Administered Date(s) Administered COVID-19 vaccine ([employer] 02/22/2021 Current Medications: albuterol HFA (PROVENTIL HFA, [...] RELIEF) 50 mcg/actuation nasal spray Use 1 [place] in each nostril once daily. busPIRone (BUSPAR) [...] Musculoskeletal: C (more content not included)... Normal [facility] URINE CULTURE [CCL]on 2022 Bacteria identified Cx Nom (U) URCUL See Results Below See Below CULTURE, URINE NORMAL UROGENITAL OLY 10,000 -<50,000 CFU/ml Normal urogenital oly SOURCE: [place] [address] Bonifacio Trujillo III, M.D. [id number] Normal [facility] Comment on above: Performed By: #### 2 [id number] #### [facility],[address] [place] [address] CNOVon 05-01-2022 CNOV Office Visit (UCMNPH ) ----- VAL RUIZ ([id number]) 2000 Date Time Provider Department 05/01/22 10:35 AM ASIF DEL [facility] During your visit today, we recorded the following information about you: Temperature Pulse Respiration Blood pressure 97 degrees 88/minute 18/minute 117/74 Weight Last Period 70.3 kg 04/25/22 Asif Del Valle APRN.EKG MONITOR 05/01/2022 10:54 AM Signed SINUSITIS: You have [...] Denies nausea or vomiting. Has been taking frqf-evx-owwpnmu cold/sinus meds with no improvement of symptoms. [...] other questions or concerns. Asif Del Valle APRN.EKG MONITOR This note was generated with voice recognition [...] days.Disp: 20 tabletRfl (more content not included)... [facility] 10-18-2021 [facility] DATE OF SERVICE: 10/18/2021 SUBJECTIVE: Patient is [...] Lung sounds clear to auscultation bilaterally. No [facility] PATIENT NAME: SARAVAL GarciaEdwardo Lewis August MEDICAL REC #: [id number] [place] [address] [place] [facility] RE[facility] STAT[facility]ARE PHYSICIAN respiratory distress. HEENT: [...] questions or concerns. Asif Del Valle CNP /[id number] [facility] PATIENT NAME: SARAVAL Albert Lis Lewis August MEDICAL REC #: [id number] [place] [address] [place] [facility] RE[facility]ARE PHYSICIAN [facility] File#: [id number] END OF DOCUMENT / CHANGE LOG FOLLOWS Last Edited By Elec. Signed By Asif Del Valle EKG MONITOR #MOYCO Asif Del Valle CNP #MOYCO on 10/18/2021 11:08 ET on 10/18/2021 11:08 ET Revision Number - 2 Verified/Reviewed by 10/18/21 1108 CHANTAL [facility] PATIENT NAME: VAL RUIZ [address] MEDICAL REC #: [id number] [place] [address] [place] [facility] RE[facility]ARE PHYSICIAN [facility] STATCARE REPORT [facility] 07-28-2021 [facility] DATE OF SERVICE: 07/28/2021 HISTORY OF PRESENT [...] FAMILY HISTORY: No chronic medical conditions listed. [facility] PATIENT NAME: VAL RUIZ [address] [facility] [address] August MEDICAL REC #: [id number] [place] [address] [place] [facility] REPORT STATCARE PHYSICIAN MEDICATIONS: Include: 1. [...] do a chest x-ray. Patient deferred at [facility] PATIENT NAME: VAL RUIZ Dr. August MEDICAL REC #: [id number] [place] [address] [facility] STAT[facility]ARE REPORT STATCARE PHYSICIAN this time. DIAGNOSIS: Acute sinusitis, upper respiratory infection. PLAN: Recommended symptomatic over the counter treatment. I did send over doxycycline 100 mg twice a day for 7 days to treat symptoms. Follow up with primary care. Patient agreeable, stable. All questions answered. JENI Garcia/[id number] [facility] File#: [id number] END OF DOCUMENT / CHANGE LOG FOLLOWS Last Edited By Elec. Signed By Zoie Potter PAC #[email or web address] Zoie Potter PAC #[email or web address] on 08/04/2021 14:37 ET on 08/04/2021 14:37 ET Revision Number - 2 Verified/Reviewed by 08/04/21 1437 ERIBERTO [facility] PATIENT NAME: VAL RUIZ [address] August MEDICAL REC #: [id number] [place] [address] [place] [facility] REPORT STAT[facility]ARE PHYSICIAN Normal [facility] DONA STATCARE REPORT Normal [facility] THROAT STREPon 07-21-2021 THROAT STREP BETA STREP RESULT NO BETA STREPTOCOCCUS ISOLATED Normal [facility] Comment on above: Order Comment: Campu s: TSC Performed By: #### M 150.79831, [id number] #### [facility] [place] [address] [place], [place] [address] # [phone] RAPID STREP Aon 07-19-2021 S. pyogenes Ag IA Ql (Unsp spec) GROUP A STREP PRESUMPTIVE NEGATIVE FOR GROUP A BETA STREPTOCOCCUS Normal [facility] Comment on above: Order Comment: Luís s: TSC Performed By: #### M 150.09816, M1.19313 #### [facility] [place] [address] [place], [place] [address] PH# [phone] TSCon 07-19-2021 TSC DATE OF SERVICE: 07/19/2021 HISTORY OF PRESENT ILLNESS: A 20-year-old female with a chief complaint of sore throat, fever, headache, nausea. Symptoms have been present for the past 2 days. She says that she has not been coughing. She has been taking ibuprofen. She had been vaccinated from [employer] last February. She has had her tonsils removed. PAST MEDICAL HISTORY: History of anemia, asthma, frequent headaches, depression. PAST SURGICAL HISTORY: She has had abdominal surgery and tonsillectomy. MEDICATIONS: She is on: 1. Seroquel. 2. Lamotrigine. 3. Dayquil. ALLERGIES: To KEFLEX. SOCIAL HISTORY: Nonsmoker. Drinks alcohol occasionally. FAMILY HISTORY: No family history. PHYSICAL EXAMINATION: Vital Signs: Blood pressure is 123/77, pulse 118, respiratory [facility] PATIENT NAME: VAL RUIZ [address] [facility] [address] August MEDICAL REC #: [id number] [place] [address] [place] [facility] REPORT STATCARE PHYSICIAN rate 16, temperature [...] on the culture results. Zuleyma Huitron MD /[id number] [facility] File#: [id number] [facility] PATIENT NAME: VAL RUIZ [address] August MEDICAL REC #: [id number] [place] [address] [facility] REPORT STATCARE PHYSICIAN END OF DOCUMENT / CHANGE LOG FOLLOWS Last Edited By Zuleyma Huitron MD on 07/25/2021 12:18 ET Revision Number - 2 Last Edited By Elec. Signed By Zuleyma Huitron MD #Zuleyma Garcia MD on 07/25/2021 12:18 ET on 07/25/2021 12:18 ET Revision Number - 3 Verified/Reviewed by 07/25/21 1218 [facility] PATIENT NAME: VAL RUIZ N [address] August MEDICAL REC #: [id number] [place] [address] [place] [facility] REPORT STATCARE PHYSICIAN Normal [facility] STATCARE REPORT Normal [facility] THROAT STREPon 04-28-2021 THROAT STREP BETA STREP RESULT NO BETA STREPTOCOCCUS ISOLATED Normal [facility] Comment on above: Order Comment: Luís s: TSC Performed By: #### M 150.51445, M100.94137 ####[facility] [id number] [place], [place] [address]GH# [phone] [id number] 04-27-2021 SARS-CoV-2 (COVID-19) RNA PARADISE+probe Ql (Unsp spec) Negative Normal Negative [facility] Comment on above: Order Comment: Altafu s: [...] performed by PCR. Performed By: #### L [id number] #### [facility] [address]# [phone] RAPID STREP Aon 04-26-2021 S. pyogenes Ag IA Ql (Unsp spec) GROUP A STREP PRESUMPTIVE NEGATIVE FOR GROUP A BETA STREPTOCOCCUS Normal [facility] Comment on above: Order Comment: Luís s: TSC Performed By: #### M 150.42650, M100.06514 #### [facility] [place] [address] [place], [place] [address] # [phone] [facility] 04-26-2021 [facility] DATE OF SERVICE: 04/26/2021 HISTORY OF PRESENT ILLNESS: Patient is a 20-year-old female here for fever, sore throat, cough, congestion, dizziness, headache, nausea. Fever up to 102 yesterday. She has had symptoms since around Saturday or Saturday. ALLERGIES: KEFLEX. PHYSICAL EXAMINATION: Vital Signs: Blood pressure 118/80, pulse 84, respirations 12, temperature 100.1, pulse oximetry 97%. Pain 8 out of 10. She works at [employer]. No exposure to COVID that she knows [...] which is still pending. DIAGNOSIS: 1. Fever. [facility] PATIENT NAME: VAL RUIZ N [address] [place] MEDICAL REC #: [id number] [place] [address] [place] [facility] RE[facility] STATCARE PHYSICIAN 2. Sinusitis. PLAN: She Is placed on a Z-Ehrmelindo pending COVID swab. Follow up as needed. They acknowledged and understood. Misty López PA-C [id number] [facility] File#: [id number] END OF DOCUMENT / CHANGE LOG FOLLOWS Last Edited By Elec. Signed By Misty López PAC #PRICH Misty López PAC #PRICH on 04/28/2021 13:23 ET on 04/28/2021 13:23 ET Revision Number - 2 Verified/Reviewed by 04/28/21 1329 LENCHO [facility] PATIENT NAME: VAL RUIZ N [address] [place] MEDICAL REC #: [id number] [place] [address] [place] [facility] [place] RE[facility] PHYSICIAN Normal [facility] [place] REPORT Normal [facility] [id number] 03-28-2021 SARS-CoV-2 (COVID-19) RNA [place]+probe Ql (Unsp spec) Negative Normal Negative [facility] Comment on above: Order Comment: Luís s: [...] performed by PCR. Performed By: #### L 770.77561 ####[facility] [id number] [place], [place] [address]Vl# [phone] [facility] DATE OF SERVICE: 03/27/2021 SUBJECTIVE: Patient is [...] MEDICATIONS: 1. Lamictal. 2. Seroquel. 3. Zoloft. [facility] PATIENT NAME: VAL RUIZ N [address] [place] MEDICAL REC #: [id number] [place] [id number] [place] [facility] [place] PHYSICIAN PHYSICAL EXAMINATION: Vital signs reviewed and [...] questions or concerns. Asif Del Valle CNP /[id number] [facility] PATIENT NAME: VAL RUIZ [address] MEDICAL REC #: [id number] [place] [address] [place] [facility] REPORT STATCARE PHYSICIAN SSI File#: [id number] END OF DOCUMENT / CHANGE LOG FOLLOWS Last Edited By Elec. Signed By Asif Del Valle EKG MONITOR #MOYCO Asif Del Valle EKG MONITOR #MOYCO on 03/27/2021 16:39 ET on 03/27/2021 16:39 ET Revision Number - 2 Verified/Reviewed by 03/27/21 Tiffanie CORNEJO [facility] PATIENT NAME: VAL RUIZ [address] MEDICAL REC #: [id number] [place] [address] [place] [facility] REPORT STATCARE PHYSICIAN Normal [facility] STATCARE REPORT Normal [facility] URINE CULTUREon 03-23-2021 Bacteria identified Cx Nom (U) NO GROWTH AFTER 48 HOURS Normal [facility] [place] Comment on above: Order Comment: Luís s: TSC Performed By: #### M 100.12466 ####[facility] - [id number] [place], [place] [address]QA# [phone] DIPSTICKon 03-21-2021 POC APPEARANCE HAZY Normal CLEAR [facility] [place] Comment on above: Order Comment: Luís s: TSC Performed By: #### L 600.22274 #### [facility] [place] [address] [place], [place] [address] PH# [phone] POC BILIRUBIN Negative Normal NEGATIVE [facility] [place] Comment on above: Order Comment: Luís s: TSC Performed By: #### L 600.63018 #### [facility] [place] [address] [place], [place] [address] PH# [phone] POC BLOOD Negative Normal NEGATIVE [facility] [place] Comment on above: Order Comment: Luís s: TSC Performed By: #### L 600.50922 #### [facility] [place] [address] [place], [place] [address] PH# [phone] POC COLOR DK YELL Normal [facility] [place] Comment on above: Order Comment: Luís s: TSC Performed By: #### L 600.57232 #### [facility] [place] [address] [place], [place] [address] PH# [phone] POC KETONE Negative Normal NEGATIVE [facility] [place] Comment on above: Order Comment: Luís s: TSC Performed By: #### L 600.94082 #### [facility] [place] [address] [place], [place] [address] PH# [phone] POC LEUK EST Negative Normal NEGATIVE [facility] [place] Comment on above: Order Comment: Luís s: TSC Performed By: #### L 600.33948 #### [facility] [place] [address] [place], [place] [address] PH# [phone] POC NITRITE Negative Normal [facility]IVE [facility] Comment on above: Order Comment: [place] s: TSC Performed By: #### L 600.85031 #### [facility] - [address] [address] PH# [phone] POC PROTEIN Negative Normal NEGATIVE [facility] Comment on above: Order Comment: [place] s: TSC Performed By: #### L 600.59626 #### [facility] - [address] [address] PH# [phone] POC SPEC GRAV 1.025 Normal 1.005-1.030 [facility] Comment on above: Order Comment: [place] s: TSC Performed By: #### L 600.41821 #### [facility] - [address] [address] PH# [phone] POC UA GLUCOSE NORMAL Normal NORMAL [facility] Comment on above: Order Comment: [place] s: TSC Performed By: #### L 600.60543 #### [facility] - [address] [address] PH# [phone] POC UA PH 6.0 Normal 5-6 [facility] Comment on above: Order Comment: [place] s: TSC Performed By: #### L 600.86308 #### [facility] - [address] [address] PH# [phone] POC UROBIL NORMAL Normal NORMAL [facility] Comment on above: Order Comment: [place] s: TSC Performed By: #### L 600.98841 #### [facility] - [address] [address] PH# [phone] TSCon 03-21-2021 TSC DATE OF SERVICE: 03/21/2021 [...] murmurs. Respiratory: Lung sounds clear to auscultation [facility] PATIENT NAME: VAL RUIZ N [address] [place] MEDICAL REC #: [id number] [place] [address] [place] [facility] REPORT STATCARE PHYSICIAN bilaterally, no [...] other questions or concerns. Asif Del Valle [facility]/[id number] [facility] PATIENT NAME: VAL RUIZ [address] MEDICAL REC #: [id number] [place] [address] [place] [facility] REPORT STATCARE PHYSICIAN [facility]SI File#: [id number] END OF DOCUMENT / CHANGE LOG FOLLOWS Last Edited By Elec. Signed By Asif Del Valle EKG MONITOR #MOYCO Asif Del Valle CNP #[email or web address] on 03/26/2021 09:06 ET on 03/26/2021 09:06 ET Revision Number - 2 Verified/Reviewed by 03/26/21 0906 CHANTAL [facility] PATIENT NAME: VAL RUIZ [address] MEDICAL REC #: [id number] [place] [address] [place] [facility] REPORT STATCARE PHYSICIAN Normal [facility] TRINY STATCARE REPORT [facility] 01-08-2021 [facility] DATE OF SERVICE: 01/08/2021 HISTORY OF PRESENT [...] uptake of dye in the cornea. IMPRESSION: Fernando Salinas eye, left. Put on erythromycin eye ointment and discharged. JENI Pan/[id number] [facility] File#: [id number] [facility] PATIENT NAME: VAL RUIZ [address] MEDICAL REC #: [id number] [place] [address] [place] [facility] REPORT STATCARE PHYSICIAN END OF DOCUMENT / CHANGE LOG FOLLOWS Last Edited By Elec. Signed By Cain Elizabeth #DYKLE Cain Elizabeth #KEMAR on 01/25/2021 14:08 ET on 01/25/2021 14:08 ET Revision Number - 2 Verified/Reviewed by 01/25/21 1408 KEMAR [facility] PATIENT NAME: VAL RUIZ [address] MEDICAL REC #: [id number] [place] [address] [place] [facility] REPORT STATCARE PHYSICIAN [facility] DATE OF SERVICE: 12/30/2020 CHIEF COMPLAINT: Abdominal [...] Admits to alcohol use, denies tobacco use. [facility] PATIENT NAME: VAL RUIZ [address] [place] MEDICAL REC #: [id number] [place] [address] [place] [facility] REPORT STATCARE PHYSICIAN REVIEW OF SYSTEMS: [...] present. Negative CVA tenderness bilaterally. DIAGNOSIS: Gastroenteritis. [facility] PATIENT NAME: VAL RUIZ N [address] [place] MEDICAL REC #: [id number] [place] [address] [place] [facility] [place] REPORT STATCARE PHYSICIAN PLAN: The patient is [...] time. The patient stable upon discharge from [facility]. JENI Szymanski/[id number] [facility] File#: [id number] END OF DOCUMENT / CHANGE LOG FOLLOWS Last Edited By Audie. Signed By Destini Rogel PAC #[email or web address] Destini Rogel PAC #[email or web address] on 12/30/2020 10:53 ET on 12/30/2020 10:53 ET Revision Number - 2 Verified/Reviewed by [facility] PATIENT NAME: VAL RUIZ [address] [place] MEDICAL REC #: [id number] [place] [address] [place] [facility] REPORT STATCARE PHYSICIAN 12/30/20 1053 [email or web address] [facility] PATIENT NAME: VAL RUIZ [address] [place] MEDICAL REC #: [id number] [place] [address] [place] [facility] REPORT STATCARE PHYSICIAN Normal [facility] STATCARE REPORT Normal [facility] GC/Chlamydia Amp, Uron 02-24 Chlamydia Amplif, Ur Normal [facility] Reference Lab Comment on above: Result Comment: Nega tive for For screening asymptomatic women, a vaginal swab specimen (APTIMA vaginal swab 432684) is optimal. Urine specimens have reduced sensitivity for Chlamydia trachomatis or Neisseria gonorrhoeae infection in female patients without symptoms. This test was developed and its performance characteristics determined by [facility]'s Elie[facility] ([facility]). It has not been cleared or approved by the FDA. [facility] is regulated under CLIA as qualified to perform high complexity testing. This test is used for clinical purposes. It should not be regarded as investigational or for research. Chlamydia For screening asymptomatic women, a vaginal swab specimen (APTIMA vaginal swab 946297) is optimal. Urine specimens have reduced sensitivity for Chlamydia trachomatis or Neisseria gonorrhoeae infection in female patients without symptoms. This test was developed and its performance characteristics determined by [facility] ([facility]). It has not been cleared or approved by the FDA. [facility] is regulated under CLIA as qualified to perform high complexity testing. This test is used for clinical purposes. It should not be regarded as investigational or for research. trachomatis by For screening asymptomatic women, a vaginal swab specimen (APTIMA vaginal swab 572388) is optimal. Urine specimens have reduced sensitivity for Chlamydia trachomatis or Neisseria gonorrhoeae infection in female patients without symptoms. This test was developed and its performance characteristics determined by [facility] ([facility]). It has not been cleared or approved by the FDA. RT [facility] is regulated under CLIA as qualified to perform high complexity testing. This test is used for clinical purposes. It should not be regarded as investigational or for research. amplification. For screening asymptomatic women, a vaginal swab specimen (APTIMA vaginal swab 083588) is optimal. Urine specimens have reduced sensitivity for Chlamydia trachomatis or Neisseria gonorrhoeae infection in female patients without symptoms. This test was developed and its performance characteristics determined by [facility] ([facility]). It has not been cleared or approved by the FDA. [facility] is regulated under CLIA as qualified to perform high complexity testing. This test is used for clinical purposes. It should not be regarded as investigational or for research. Performed By: #### U GCCT #### [facility] Routine Lab [address] [place], [place] [address] GC Amplification, Ur NGNEG Normal [facility] Reference Lab Comment on above: Performed By: #### U GCCT #### [facility] Routine Lab [address] [place], [place] [id number] Vital Signs Date Time Vital Sign Value Performing Clinician Facility 03-02-2025 09:20-0400 Body mass index (BMI) [Ratio] 39.59 kg/m2 Alfred Arcos MD Work Phone: [facility] 03-02-2025 09:20-0400 Body weight 88.91 kg Alfred Arcos MD Work Phone: [facility] 03-02-2025 09:20-0400 Diastolic blood pressure 78 mm[Hg] Alfred Arcos MD Work Phone: [facility] 03-02-2025 09:20-0400 Systolic blood pressure 115 mm[Hg] Alfred Arcos MD Work Phone: [facility] 03-01-2025 19:36-0400 Body temperature 97.8 [degF] No Primary Care Physician [facility] 03-01-2025 19:36-0400 Respiratory rate 16 /min No Primary Care Physician [facility] 03-01-2025 19:35-0400 Diastolic blood pressure 69 mm[Hg] No Primary Care Physician [facility] 03-01-2025 19:35-0400 Heart rate 75 /min No Primary Care Physician [facility] 03-01-2025 19:35-0400 Systolic blood pressure 114 mm[Hg] No Primary Care Physician [facility] 03-01-2025 17:36-0400 SaO2% (BldA) [Mass fraction] 97 % No Primary Care Physician [facility] 03-01-2025 11:30-0400 Body height 147.32 cm No Primary Care Physician [facility] 03-01-2025 11:30-0400 Body mass index (BMI) [Ratio] 40.9 kg/m2 No Primary Care Physician [facility] 03-01-2025 11:30-0400 Body weight 88.81 kg No Primary Care Physician [facility] 03-01-2025 11:22-0400 Body temperature 98.8 [degF] No Primary Care Physician [facility] 03-01-2025 11:22-0400 Diastolic blood pressure 55 mm[Hg] No Primary Care Physician [facility] 03-01-2025 11:22-0400 Heart rate 88 /min No Primary Care Physician [facility] 03-01-2025 11:22-0400 Respiratory rate 16 /min No Primary Care Physician [facility] 03-01-2025 11:22-0400 Systolic blood pressure 114 mm[Hg] No Primary Care Physician [facility] 03-01-2025 11:21-0400 SaO2% (BldA) [Mass fraction] 97 % No Primary Care Physician [facility] 02-26-2025 09:16-0400 Body mass index (BMI) [Ratio] 39.79 kg/m2 Woody Bass MD Work Phone: [facility] 02-26-2025 09:16-0400 Body weight 89.36 kg Woody Bass MD Work Phone: [facility] 02-26-2025 09:16-0400 Diastolic blood pressure 71 mm[Hg] Woody Bass MD Work Phone: [facility] 02-26-2025 09:16-0400 Systolic blood pressure 121 mm[Hg] Woody Bass MD Work Phone: [facility] 02-24-2025 17:04-0400 Body temperature 98.5 [degF] No Primary Care Physician [facility] 02-24-2025 17:04-0400 Heart rate 79 /min No Primary Care Physician [facility] 02-24-2025 17:04-0400 Respiratory rate 16 /min No Primary Care Physician [facility] 02-24-2025 17:04-0400 SaO2% (BldA) [Mass fraction] 94 % No Primary Care Physician [facility] 02-24-2025 17:03-0400 Diastolic blood pressure 57 mm[Hg] No Primary Care Physician [facility] 02-24-2025 17:03-0400 Systolic blood pressure 107 mm[Hg] No Primary Care Physician [facility] 02-24-2025 16:57-0400 Body height 146.99 cm No Primary Care Physician [facility] 02-24-2025 16:57-0400 Body mass index (BMI) [Ratio] 40.9 kg/m2 No Primary Care Physician [facility] 02-24-2025 16:57-0400 Body weight 88.5 kg No Primary Care Physician [facility] 02-19-2025 11:45-0400 Body mass index (BMI) [Ratio] 38.38 kg/m2 Mayra Vincent MD Work Phone: [facility] 02-19-2025 11:45-0400 Body weight 86.18 kg Mayra Vincent MD Work Phone: [facility] 02-19-2025 11:45-0400 Diastolic blood pressure 64 mm[Hg] Mayra Vincent MD Work Phone: [facility] 02-19-2025 11:45-0400 Heart rate 72 /min Mayra Vincent MD Work Phone: [facility] 02-19-2025 11:45-0400 SaO2% (BldA) [Mass fraction] 98 % Mayra Vincent MD Work Phone: [facility] 02-19-2025 11:45-0400 Systolic blood pressure 106 mm[Hg] Mayra Vincent MD Work Phone: [facility] 02-08-2025 11:24-0400 Diastolic blood pressure 72 mm[Hg] [facility] 02-08-2025 11:24-0400 Systolic blood pressure 124 mm[Hg] [facility] 02-04-2025 14:00-0400 Body mass index (BMI) [Ratio] 38.17 kg/m2 Gee Carlin MD Work Phone: [facility] 02-04-2025 14:00-0400 Body weight 85.73 kg Gee Carlin MD Work Phone: [facility] 02-04-2025 14:00-0400 Diastolic blood pressure 64 mm[Hg] Gee Carlin MD Work Phone: [facility] 02-04-2025 14:00-0400 Systolic blood pressure 108 mm[Hg] Gee Carlin MD Work Phone: [facility] 02-01-2025 11:37-0400 Diastolic blood pressure 62 mm[Hg] [facility] 02-01-2025 11:37-0400 Systolic blood pressure 108 mm[Hg] [facility] 01-28-2025 14:27-0400 Body mass index (BMI) [Ratio] 37.57 kg/m2 Alfred Arcos MD Work Phone: [facility] 01-28-2025 14:27-0400 Body weight 84.37 kg Alfred Arcos MD Work Phone: [facility] 01-28-2025 14:27-0400 Diastolic blood pressure 63 mm[Hg] Alfred Arcos MD Work Phone: [facility] 01-28-2025 14:27-0400 Systolic blood pressure 106 mm[Hg] Alfred Arcos MD Work Phone: [facility] 01-26-2025 09:28-0400 Diastolic blood pressure 66 mm[Hg] [facility] 01-26-2025 09:28-0400 Systolic blood pressure 116 mm[Hg] [facility] 01-25-2025 13:00-0400 Body temperature 97.11 [degF] Treatment Wstr Work Phone: [facility] 01-25-2025 13:00-0400 Diastolic blood pressure 66 mm[Hg] Treatment Wstr Work Phone: [facility] 01-25-2025 13:00-0400 Heart rate 60 /min Treatment Wstr Work Phone: [facility] 01-25-2025 13:00-0400 Systolic blood pressure 103 mm[Hg] Treatment Wstr Work Phone: [facility] 01-22-2025 14:35-0400 Body mass index (BMI) [Ratio] 37.57 kg/m2 Alfred Arcos MD Work Phone: [facility] 01-22-2025 14:35-0400 Body weight 84.37 kg Alfred Arcos MD Work Phone: [facility] 01-22-2025 14:35-0400 Diastolic blood pressure 71 mm[Hg] Alfred Arcos MD Work Phone: [facility] 01-22-2025 14:35-0400 Systolic blood pressure 106 mm[Hg] Alfred Arcos MD Work Phone: [facility] 01-20-2025 13:22-0400 Body mass index (BMI) [Ratio] 38.16 kg/m2 Treatment Wstr Work Phone: [facility] 01-20-2025 13:22-0400 Body temperature 98.01 [degF] Treatment Wstr Work Phone: [facility] 01-20-2025 13:22-0400 Body weight 85.7 kg Treatment Wstr Work Phone: [facility] 01-20-2025 13:22-0400 Diastolic blood pressure 73 mm[Hg] Treatment Wstr Work Phone: [facility] 01-20-2025 13:22-0400 Heart rate 78 /min Treatment Wstr Work Phone: [facility] 01-20-2025 13:22-0400 SaO2% (BldA) [Mass fraction] 96 % Treatment Wstr Work Phone: [facility] 01-20-2025 13:22-0400 Systolic blood pressure 105 mm[Hg] Treatment Wstr Work Phone: [facility] 01-18-2025 13:59-0400 Body temperature 97.5 [degF] Treatment Wstr Work Phone: [facility] 01-18-2025 13:59-0400 Diastolic blood pressure 62 mm[Hg] Treatment Wstr Work Phone: [facility] 01-18-2025 13:59-0400 Heart rate 90 /min Treatment Wstr Work Phone: [facility] 01-18-2025 13:59-0400 SaO2% (BldA) [Mass fraction] 99 % Treatment Wstr Work Phone: [facility] 01-18-2025 13:59-0400 Systolic blood pressure 99 mm[Hg] Treatment Wstr Work Phone: [facility] 01-12-2025 14:00-0400 Body temperature 98.2 [degF] Treatment Wstr Work Phone: [facility] 01-12-2025 14:00-0400 Diastolic blood pressure 73 mm[Hg] Treatment Wstr Work Phone: [facility] 01-12-2025 14:00-0400 Heart rate 101 /min Treatment Wstr Work Phone: [facility] 01-12-2025 14:00-0400 Systolic blood pressure 107 mm[Hg] Treatment Wstr Work Phone: [facility] 01-07-2025 14:11-0400 Body mass index (BMI) [Ratio] 37.2 kg/m2 Alfred Arcos MD Work Phone: [facility] 01-07-2025 14:11-0400 Body weight 83.55 kg Alfred Arcos MD Work Phone: [facility] 01-07-2025 14:11-0400 Diastolic blood pressure 78 mm[Hg] Alfred Arcos MD Work Phone: [facility] 01-07-2025 14:11-0400 Systolic blood pressure 120 mm[Hg] Alfred Arcos MD Work Phone: [facility] 12-25-2024 10:40-0400 Body mass index (BMI) [Ratio] 36.36 kg/m2 Alfred Arcos MD Work Phone: [facility] 12-25-2024 10:40-0400 Body weight 81.65 kg Alfred Arcos MD Work Phone: [facility] 12-25-2024 10:40-0400 Diastolic blood pressure 70 mm[Hg] Alfred Arcos MD Work Phone: [facility] 12-25-2024 10:40-0400 Systolic blood pressure 114 mm[Hg] Alfred Arcos MD Work Phone: [facility] 12-03-2024 13:37-0400 Body mass index (BMI) [Ratio] 35.95 kg/m2 Alfred Arcos MD Work Phone: [facility] 12-03-2024 13:37-0400 Body weight 80.74 kg Alfred Arcos MD Work Phone: [facility] 12-03-2024 13:37-0400 Diastolic blood pressure 64 mm[Hg] Alfred Arcos MD Work Phone: [facility] 12-03-2024 13:37-0400 Systolic blood pressure 112 mm[Hg] Alfred Arcos MD Work Phone: [facility] 11-06-2024 11:34-0500 Body mass index (BMI) [Ratio] 35.75 kg/m2 Alfred Arcos MD Work Phone: [facility] 11-06-2024 11:34-0500 Body weight 80.29 kg Alfred Arcos MD Work Phone: [facility] 11-06-2024 11:34-0500 Diastolic blood pressure 58 mm[Hg] Alfred Arcos MD Work Phone: [facility] 11-06-2024 11:34-0500 Systolic blood pressure 108 mm[Hg] Alfred Arcos MD Work Phone: [facility] 10-20-2024 09:16-0500 Body mass index (BMI) [Ratio] 35.71 kg/m2 Arleth Clutter PA-C Work Phone: [facility] 10-20-2024 09:16-0500 Body temperature 97.5 [degF] Arleth Clutter PA-C Work Phone: [facility] 10-20-2024 09:16-0500 Body weight 80.2 kg Arleth Clutter PA-C Work Phone: [facility] 10-20-2024 09:16-0500 Diastolic blood pressure 70 mm[Hg] Arleth Clutter PA-C Work Phone: [facility] 10-20-2024 09:16-0500 Heart rate 82 /min Arleth Clutter PA-C Work Phone: [facility] 10-20-2024 09:16-0500 Respiratory rate 16 /min Arleth Saenzutter PA-C Work Phone: [facility] 10-20-2024 09:16-0500 SaO2% (BldA) [Mass fraction] 98 % Arleth Clutter PA-C Work Phone: [facility] 10-20-2024 09:16-0500 Systolic blood pressure 122 mm[Hg] Arleth Gillespie PA-C Work Phone: [facility] 10-09-2024 13:45-0500 Body mass index (BMI) [Ratio] 35.14 kg/m2 Melissa Aguilera MD Work Phone: [facility] 10-09-2024 13:45-0500 Body weight 78.93 kg Melissa Aguilera MD Work Phone: [facility] 10-09-2024 13:45-0500 Diastolic blood pressure 64 mm[Hg] Melissa Aguilera MD Work Phone: [facility] 10-09-2024 13:45-0500 Systolic blood pressure 118 mm[Hg] Melissa Aguilera MD Work Phone: [facility] 09-11-2024 11:43-0500 Body mass index (BMI) [Ratio] 35.71 kg/m2 Melissa Aguilera MD Work Phone: [facility] 09-11-2024 11:43-0500 Body weight 80.2 kg Melissa Aguilera MD Work Phone: [facility] 09-11-2024 11:43-0500 Diastolic blood pressure 76 mm[Hg] Melissa Aguilera MD Work Phone: [facility] 09-11-2024 11:43-0500 Systolic blood pressure 122 mm[Hg] Melissa Aguilera MD Work Phone: [facility] 08-15-2024 14:13-0500 Body mass index (BMI) [Ratio] 34.06 kg/m2 June Coronel APRN.CNP Work Phone: [facility] 08-15-2024 14:13-0500 Body temperature 97.3 [degF] June Moomaw CLEANER AND PRESSER.EKG MONITOR Work Phone: [facility] 08-15-2024 14:13-0500 Body weight 76.5 kg June Moomaw CLEANER AND PRESSER.EKG MONITOR Work Phone: [facility] 08-15-2024 14:13-0500 Diastolic blood pressure 78 mm[Hg] June Moomaw CLEANER AND PRESSER.EKG MONITOR Work Phone: [facility] 08-15-2024 14:13-0500 Heart rate 80 /min June Moomaw CLEANER AND PRESSER.EKG MONITOR Work Phone: [facility] 08-15-2024 14:13-0500 Respiratory rate 18 /min June Moomaw CLEANER AND PRESSER.EKG MONITOR Work Phone: [facility] 08-15-2024 14:13-0500 SaO2% (BldA) [Mass fraction] 98 % June Moomaw CLEANER AND PRESSER.EKG MONITOR Work Phone: [facility] 08-15-2024 14:13-0500 Systolic blood pressure 122 mm[Hg] June Moomaw CLEANER AND PRESSER.EKG MONITOR Work Phone: [facility] 08-10-2024 12:26-0500 Body mass index (BMI) [Ratio] 34.91 kg/m2 Yong Mederos CLEANER AND PRESSER.EKG MONITOR Work Phone: [facility] 08-10-2024 12:26-0500 Body temperature 98.1 [degF] Yong Mederos CLEANER AND PRESSER.EKG MONITOR Work Phone: [facility] 08-10-2024 12:26-0500 Body weight 78.4 kg Yong Mederos CLEANER AND PRESSER.EKG MONITOR Work Phone: [facility] 08-10-2024 12:26-0500 Diastolic blood pressure 70 mm[Hg] Yong Mederos CLEANER AND PRESSER.EKG MONITOR Work Phone: [facility] 08-10-2024 12:26-0500 Heart rate 90 /min Yong Mederos CLEANER AND PRESSER.EKG MONITOR Work Phone: [facility] 08-10-2024 12:26-0500 Respiratory rate 21 /min Yong Mederos APRN.EKG MONITOR Work Phone: [facility] 08-10-2024 12:26-0500 SaO2% (BldA) [Mass fraction] 96 % Yong Mederos APRN.EKG MONITOR Work Phone: [facility] 08-10-2024 12:26-0500 Systolic blood pressure 118 mm[Hg] Yong Mederos APRN.EKG MONITOR Work Phone: [facility] 08-03-2024 12:55-0500 Body height 149.9 cm Kati Shannantin GARCIA.CNM Work Phone: [facility] 08-03-2024 12:55-0500 Body mass index (BMI) [Ratio] 34.74 kg/m2 Kati Rolle APRN.CNM Work Phone: [facility] 08-03-2024 12:55-0500 Body weight 78.02 kg Kati Rolle APRN.CNM Work Phone: [facility] 07-24-2024 11:05-0400 Body temperature 97.3 [degF] Arleen Arcos APRN.EKG MONITOR Work Phone: [facility] 07-24-2024 11:05-0400 Body weight 78.9 kg Arleen Arcos APRN.EKG MONITOR Work Phone: [facility] 07-24-2024 11:05-0400 Diastolic blood pressure 58 mm[Hg] Arleen Arcos APRN.EKG MONITOR Work Phone: [facility] 07-24-2024 11:05-0400 Heart rate 84 /min Arleen Arcos APRN.EKG MONITOR Work Phone: [facility] 07-24-2024 11:05-0400 Respiratory rate 22 /min Arleen Arcos APRN.EKG MONITOR Work Phone: [facility] 07-24-2024 11:05-0400 SaO2% (BldA) [Mass fraction] 100 % Arleen Josselyn CLEANER AND PRESSER.EKG MONITOR Work Phone: [facility] 07-24-2024 11:05-0400 Systolic blood pressure 112 mm[Hg] Arleen Josselyn CLEANER AND PRESSER.EKG MONITOR Work Phone: [facility] 07-11-2024 11:04-0400 Body temperature 97.7 [degF] Shu Praisler-Wood CLEANER AND PRESSER.EKG MONITOR Work Phone: [facility] 07-11-2024 11:04-0400 Body weight 76.4 kg Shu Praisler-Wood CLEANER AND PRESSER.EKG MONITOR Work Phone: [facility] 07-11-2024 11:04-0400 Diastolic blood pressure 72 mm[Hg] Shu Praisler-Wood CLEANER AND PRESSER.EKG MONITOR Work Phone: [facility] 07-11-2024 11:04-0400 Heart rate 80 /min Shu Praisler-Wood CLEANER AND PRESSER.EKG MONITOR Work Phone: [facility] 07-11-2024 11:04-0400 Respiratory rate 21 /min Shu Praisler-Wood CLEANER AND PRESSER.EKG MONITOR Work Phone: [facility] 07-11-2024 11:04-0400 SaO2% (BldA) [Mass fraction] 100 % Shu Praisler-Wood CLEANER AND PRESSER.EKG MONITOR Work Phone: [facility] 07-11-2024 11:04-0400 Systolic blood pressure 110 mm[Hg] Shu Praisler-Wood CLEANER AND PRESSER.EKG MONITOR Work Phone: [facility] 06-19-2024 10:57-0400 Body temperature 97.7 [degF] Haley Black CLEANER AND PRESSER.EKG MONITOR Work Phone: [facility] 06-19-2024 10:57-0400 Body weight 76 kg Haley Black CLEANER AND PRESSER.EKG MONITOR Work Phone: [facility] 06-19-2024 10:57-0400 Diastolic blood pressure 77 mm[Hg] Haley Black CLEANER AND PRESSER.EKG MONITOR Work Phone: [facility] 06-19-2024 10:57-0400 Heart rate 99 /min Haley Black CLEANER AND PRESSER.EKG MONITOR Work Phone: [facility] 06-19-2024 10:57-0400 Respiratory rate 18 /min Haley Black CLEANER AND PRESSER.EKG MONITOR Work Phone: [facility] 06-19-2024 10:57-0400 SaO2% (BldA) [Mass fraction] 99 % Haley Black CLEANER AND PRESSER.EKG MONITOR Work Phone: [facility] 06-19-2024 10:57-0400 Systolic blood pressure 109 mm[Hg] Haley Black CLEANER AND PRESSER.EKG MONITOR Work Phone: [facility] 05-17-2024 14:04-0400 Body temperature 97.81 [degF] Arielle Arias CLEANER AND PRESSER.EKG MONITOR Work Phone: [facility] 05-17-2024 14:04-0400 Body weight 75.75 kg Arielle Arias CLEANER AND PRESSER.EKG MONITOR Work Phone: [facility] 05-17-2024 14:04-0400 Diastolic blood pressure 76 mm[Hg] Arielle Arias CLEANER AND PRESSER.EKG MONITOR Work Phone: [facility] 05-17-2024 14:04-0400 Heart rate 80 /min Arielle Arias CLEANER AND PRESSER.EKG MONITOR Work Phone: [facility] 05-17-2024 14:04-0400 Respiratory rate 14 /min Arielle Arias CLEANER AND PRESSER.EKG MONITOR Work Phone: [facility] 05-17-2024 14:04-0400 SaO2% (BldA) [Mass fraction] 98 % Arielle Arias CLEANER AND PRESSER.EKG MONITOR Work Phone: [facility] 05-17-2024 14:04-0400 Systolic blood pressure 114 mm[Hg] Arielle Arias CLEANER AND PRESSER.EKG MONITOR Work Phone: [facility] 03-23-2024 13:12-0400 Body temperature 97.59 [degF] Riccardo WERNER Work Phone: [facility] 03-23-2024 13:12-0400 Body weight 77.3 kg Riccardo Nahid PA Work Phone: [facility] 03-23-2024 13:12-0400 Diastolic blood pressure 73 mm[Hg] Riccardo Nahid PA Work Phone: [facility] 03-23-2024 13:12-0400 Heart rate 79 /min Riccardo Nahid PA Work Phone: [facility] 03-23-2024 13:12-0400 Respiratory rate 18 /min Riccardo Nahid PA Work Phone: [facility] 03-23-2024 13:12-0400 SaO2% (BldA) [Mass fraction] 97 % Riccardo Nahid PA Work Phone: [facility] 03-23-2024 13:12-0400 Systolic blood pressure 106 mm[Hg] Riccardo Nahid PA Work Phone: [facility] 05-01-2022 10:39-0400 Body temperature 97 [degF] Asif Radha CLEANER AND PRESSER.EKG MONITOR Work Phone: [facility] 05-01-2022 10:39-0400 Body weight 70.31 kg Asif Radha CLEANER AND PRESSER.EKG MONITOR Work Phone: [facility] 05-01-2022 10:39-0400 Diastolic blood pressure 74 mm[Hg] Asif Radha CLEANER AND PRESSER.EKG MONITOR Work Phone: [facility] 05-01-2022 10:39-0400 Heart rate 88 /min Asif Radha CLEANER AND PRESSER.EKG MONITOR Work Phone: [facility] 05-01-2022 10:39-0400 Respiratory rate 18 /min Asif Radha CLEANER AND PRESSER.EKG MONITOR Work Phone: [facility] 05-01-2022 10:39-0400 SaO2% (BldA) [Mass fraction] 100 % Asif Radha CLEANER AND PRESSER.EKG MONITOR Work Phone: [facility] 05-01-2022 10:39-0400 Systolic blood pressure 117 mm[Hg] Asif Radha CLEANER AND PRESSER.EKG MONITOR Work Phone: [facility] Encounters Encounter Date Encounter Type Care [...] Start: 03-02-2025 End: 03-02-2025 ambulatory ALFRED ARCOS Facility:[facility] Start: 03-01-2025 End: 03-01-2025 Telephone encounter Mayra Vincent MD Work Phone: OB/Gynecology Comment on above: Possible SROM. C/S Start: 03-01-2025 End: 03-01-2025 ambulatory No Primary Care Physician [facility] Work Phone: Start: 03-01-2025 End: 03-01-2025 Patient [...] Start: 02-26-2025 End: 02-26-2025 ambulatory WOODY BASS Facility:[facility] Start: 02-24-2025 End: 02-24-2025 ambulatory No Primary Care Physician [facility] Work Phone: Start: 02-24-2025 End: 02-24-[address] Mayra Cam MD [facility] Work Phone: Start: 02-24-2025 End: 02-24-2025 Telephone encounter Kati Rolle CLEANER AND PRESSER.CNM Work Phone: OB/Gynecology Comment on above: Patient [...] 02-19-2025 Patient encounter procedure Whi Tech 1 [employer] [facility] [facility] Maternal Medicine Comment on above: Pre-existing diabete s mellitus in in second trimester (HCC) (Primary Dx) Supervision of high risk in third trimester (HCC) (Primary Dx); Pre-existing diabetes mellitus in in third trimester (HCC); Previous section; Anemia complicating , third trimester (HCC); Obesity during (HCC) Start: 02-19-2025 End: 02-19-2025 ambulatory ELBA KHANNA Facility:[facility] Start: 02-11-2025 End: 02-11-2025 ambulatory MELISSA AGUILERA Facility:[facility] Start: 02-08-2025 End: 02-08-2025 Patient encounter procedure Whi Tech 1 [employer] [facility] [facility] Maternal Medicine Comment on above: Pre-existing diabete s mellitus in in second trimester (HCC) (Primary Dx); 34 weeks gestation of ([facility]) Start: 02-08-2025 End: 02-08-2025 ambulatory ALFRED ARCOS Facility:[facility] Start: 02-04-2025 End: 02-04-2025 Patient encounter procedure Gee Carlin MD Work Phone: OB/Gynecology Comment on above: Supervision of high risk in third trimester (HCC) (Primary Dx); Previous section; Pre-existing diabetes mellitus in in third trimester (HCC); 34 weeks gestation of (HCC); Headache in , antepartum, third trimester (HCC) Start: 02-04-2025 End: 02-04-2025 ambulatory GEE CARLIN Facility:[facility] Start: 02-02-2025 End: 02-02-2025 Telephone encounter Lalito Rocha DO Work Phone: Endocrinology Comment on above: Blood Sugar Reading Start: 02-01-2025 End: 02-01-2025 Patient encounter procedure Whi Tech 1 [employer] [facility] Maternal Medicine Comment on above: Pre-existing diabete s mellitus in in second trimester (HCC) (Primary Dx); 33 weeks gestation of (HCC) Start: 02-01-2025 End: 02-01-2025 ambulatory ALFRED ARCOS Facility:[facility] Start: 01-28-2025 End: 01-28-2025 Patient encounter procedure Alfred Arcos MD Work Phone: OB/Gynecology Comment on above: Supervision of high risk in third trimester (HCC) (Primary Dx); Previous section; Anemia complicating , third trimester (HCC); 33 weeks gestation of (HCC); Pre-existing diabetes mellitus in in third trimester (HCC) Start: 01-28-2025 End: 01-28-2025 ambulatory ALFRED ARCOS Facility:[facility] Start: 01-27-2025 End: 01-27-2025 Telephone encounter Lalito Rocha DO Work Phone: Endocrinology Comment on above: Blood Sugar Reading Start: 01-26-2025 End: 01-26-2025 Patient encounter procedure Whi Tech 1 [employer] [facility] Maternal Medicine Comment on above: Pre-existing diabete s mellitus in in second trimester (HCC) (Primary Dx); 32 weeks gestation of (HCC) Start: 01-26-2025 End: 01-26-2025 ambulatory ALFRED ARCOS Facility:[facility] Start: 01-25-2025 End: 01-25-2025 ambulatory Treatment Rm 14 [facility] Work Phone: Hematology/Oncology Comment on [...] trimester (HCC) Start: 01-22-2025 End: 01-22-2025 [facility] Facility:[facility] Start: 01-22-2025 End: 01-22-2025 Patient encounter procedure Whi Tech 1 [employer] [facility] Maternal Medicine Comment on [...] End: 01-20-2025 ambulatory Treatment Rm 18 [facility] Work Phone: Hematology/Oncology Comment on above: Maternal iron defici ency anemia complicating , third trimester (HCC) (Primary Dx) Start: 01-19-2025 End: 01-19-2025 Telephone encounter Lalito Rocha DO Work Phone: Endocrinology Comment on above: Blood Sugar Reading Start: 01-18-2025 End: 01-18-2025 ambulatory Treatment Rm 15 [facility] Work Phone: Hematology/Oncology Comment on above: Maternal iron defici ency anemia complicating , third trimester (HCC) (Primary Dx) Start: 01-14-2025 End: 01-14-2025 ambulatory [facility] Facility:[facility] Start: 01-12-2025 End: 01-12-2025 Telephone encounter Lalito Rocha DO Work Phone: Endocrinology Comment on above: Blood Sugar Reading Start: 01-12-2025 End: 01-12-2025 ambulatory Treatment Rm 15 [facility] Work Phone: Hematology/Oncology Comment on above: Malignant neoplasm o f prostate (HCC) (Primary Dx); Maternal iron deficiency anemia complicating , third trimester (HCC) Start: 01-08-2025 End: 01-08-2025 Telephone encounter Melissa Chavez RN Maternal Medic ine Comment on above: 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) Start: 01-07-2025 End: 01-07-2025 Patient encounter procedure Alfred Arcos MD Work Phone: OB/Gynecology Comment on above: 30 weeks gestation o f (HCC) (Primary Dx); Previous section; Need for vaccination; Pre-existing diabetes mellitus in in second trimester (HCC); Maternal iron deficiency anemia complicating , third trimester (HCC) Start: 01-07-2025 End: 01-07-2025 ambulatory [facility] Facility:[facility] Start: 01-05-2025 End: 01-05-2025 Telephone encounter Lalito Rocha DO Work Phone: Endocrinology Comment on above: Blood Sugar Reading Start: 12-30-2024 End: 12-30-2024 ambulatory 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 Dean 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 [place] Comment on above: Blood Management Start: 12-28-2024 End: 12-28-2024 Telephone encounter Lalito Rocha DO Work Phone: Endocrinology Comment on above: Blood Sugar Reading Start: 12-25-2024 End: 12-25-2024 ambulatory [facility] Facility:[facility] Start: 12-25-2024 End: 12-25-2024 Patient encounter [...] Start: 12-03-2024 End: 12-03-2024 ambulatory ALFRED ARCOS Facility:[facility] Start: 12-03-2024 End: 12-03-2024 Patient encounter procedure Whi Tech 1 [employer] [facility] Maternal Medicine Comment on [...] Start: 11-10-2024 End: 11-10-2024 ambulatory EDIE MAYER Facility:[facility] Start: 11-09-2024 End: 11-09-2024 Telephone encounter Melissa Chavez RN Maternal Medic ine 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: 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) Start: 11-08-2024 End: 01-08-2025 Follow-up encounter Melissa Aguilera MD Work Phone: OB/Gynecology Start: 11-06-2024 End: 11-06-2024 ambulatory ALFRED ARCOS Facility:[facility] Start: 11-06-2024 End: 11-06-2024 Patient encounter procedure Alfred Arcos MD Work Phone: OB/Gynecology Comment on above: Supervision of high risk in second trimester (Primary Dx); Pre-existing diabetes mellitus in in second trimester; 21 weeks gestation of ; Previous delivery affecting , antepartum Start: 11-06-2024 End: 11-06-2024 ambulatory MELISSA AGUILERA Facility:[facility] Start: 11-06-2024 End: 11-06-2024 Patient encounter procedure Whi Tech 1 [employer] [facility] [facility] Maternal Medicine Comment on [...] Phone: Endocrinology Start: 10-20-2024 End: 10-20-2024 ambulatory [facility] Facility:[facility] Start: 10-20-2024 End: 10-20-2024 Office outpatient visit 25 minutes Arleth Gillespie PA-C Work Phone: [facility] Comment on above: Acute non-recurrent sinusitis, [...] trimester Start: 10-09-2024 End: 10-09-2024 ambulatory MELISSA AGUIELRA Facility:[facility] Start: 10-09-2024 End: 10-09-2024 Patient encounter procedure Whi Tech 1 [employer] [facility] [facility] Maternal Medicine Comment on above: Encounter for antena mona screening for malformation using ultrasound (Primary Dx); Encounter for anatomic survey; 17 weeks gestation of Start: 10-07-2024 End: 10-07-2024 Emergency department patient visit Jay Alvarez Facility:[facility] Start: 10-05-2024 End: 10-05-2024 Emergency department patient visit Lonnie Kumari Facility:[facility] Start: 09-22-2024 End: 09-22-2024 Nursing evaluation of patient and report Janice Cole RN Work Phone: Endocrinology Comment on above: Diet controlled gest ational diabetes mellitus (GDM) in second trimester Start: 09-22-2024 End: 09-22-2024 ambulatory ELBA KHANNA Facility:[facility] Start: 09-18-2024 End: 09-18-2024 Telephone encounter Elba Khanna APRN.EKG MONITOR Work Phone: OB/Gynecology Comment on above: Gestational Diabetes Start: 09-18-2024 End: 09-18-2024 ambulatory KATI ROLLE Facility:[facility] Start: 09-15-2024 End: 09-17-2024 Orders Only Kati Rolle CLEANER AND PRESSER.CNM Work Phone: [facility] Comment on above: Elevated hemoglobin A1c (Primary Dx) Results Start: 09-11-2024 End: 09-11-2024 Office outpatient visit 15 minutes Melissa Aguilera MD Work Phone: OB/Gynecology Comment on above: 13 weeks gestation o f (Primary Dx); Encounter for supervision of other normal in second trimester Start: 09-11-2024 End: 09-11-2024 [facility] Start: 09-11-2024 End: 09-11-2024 Patient encounter procedure Whi Tech 1 [employer] [facility] [facility] Maternal Medicine Comment on above: Encounter for eliuda mona screening for malformation using ultrasound (Primary Dx); 13 weeks gestation of Start: 08-15-2024 End: 08-15-2024 [facility] Facility:[facility] Start: 08-15-2024 End: 08-15-2024 Patient encounter procedure June Coronel JOSE.EKG MONITOR Work Phone: [facility] Comment on above: Bacterial sinusitis (Primary Dx); Bacterial conjunctivitis Start: 08-10-2024 End: 08-10-2024 Subsequent hospital visit by physician Xr [facility] Work Phone: Radiology Comment on above: Acute cough [R05.1] Start: 08-10-2024 End: 08-10-2024 [facility] Facility:[facility] Start: 08-10-2024 End: 08-10-2024 Patient encounter procedure Yong King JOSE.EKG MONITOR Work Phone: [facility] Comment on above: URI, acute (Primary Dx); Acute cough Start: 08-04-2024 End: 08-04-2024 Telephone encounter Nurse Dirt Contractor Oliver Blackwell Work Phone: Obstetrics/Gynecology Comment on above: PRAF Start: 08-03-2024 End: 08-03-2024 ambulatory [facility] Facility:[facility] Start: 08-03-2024 End: 08-03-2024 Patient encounter procedure Kati Rolle CLEANER AND PRESSER.CNM Work Phone: OB/Gynecology Comment on above: with [...] diabetes mellitus (GDM) Start: 07-24-2024 End: 07-24-2024 [facility] Start: 07-24-2024 End: 07-24-2024 Patient encounter procedure Arleen Arcos APRN.EKG MONITOR Work Phone: [facility] Comment on above: Rhinosinusitis (Prim greg Dx) Start: 07-15-2024 End: 07-15-2024 Emergency department patient visit DESTINI JASE [facility] Start: 07-11-2024 End: 07-11-2024 ambulatory [facility] Facility:[facility] Start: 07-11-2024 End: 07-11-2024 Patient encounter procedure Shu Gomez APRN.EKG MONITOR Work Phone: [facility] Comment on above: Missed period (Prima ry Dx); Encounter for confirmation of test result with physical examination Start: 06-19-2024 End: 06-19-2024 Subsequent hospital visit by physician X[facility] Work Phone: Radiology Comment on above: Acute cough [R05.1] Start: 06-19-2024 End: 06-19-2024 ambulatory ARLEEN ARCOS Facility:[facility] Start: 06-19-2024 End: 06-19-2024 Patient encounter procedure Haley Black APRN.EKG MONITOR Work Phone: [facility] Comment on above: Acute cough (Primary Dx); URI, acute Start: 05-17-2024 End: 05-17-2024 Patient encounter procedure Arielle Arias APRN.EKG MONITOR Work Phone: [facility] Comment on above: Bronchitis (Primary Dx); Acute non-recurrent pansinusitis; Lower respiratory infection Start: 05-17-2024 End: 05-17-2024 ambulatory [facility] Facility:[id number] Start: 03-23-2024 End: 03-23-2024 Patient encounter procedure Riccardo WERNER Work Phone: [facility] Comment on above: Acute non-recurrent frontal sinusitis (Primary Dx); Acute otitis media, left Start: 03-23-2024 End: 03-23-2024 ambulatory RICCARDO LEVINE Facility:[id number] Start: 07-22-2023 End: 07-22-2023 ambulatory ARCENIO DINERO [facility] Start: 05-01-2022 End: 05-01-2022 Patient encounter procedure Asif Del Valle CLEANER AND PRESSER.EKG MONITOR Work Phone: [facility] Comment on above: Acute non-recurrent frontal sinusitis (Primary Dx) Start: 10-18-2021 Patient encounter procedure Asif Del Valle CLEANER AND PRESSER.EKG MONITOR Work Phone: [facility] Start: 10-18-2021 Progress Note Asif Del Valle APR N.EKG MONITOR Work Phone: [facility] Start: 10-18-2021 End: 10-18-2021 Subsequent hospital visit by physician [facility] Comment on above: SORE THROAT,CONGESTI ON,WATERY EYES,COUGH Start: 07-31-2021 Patient encounter procedure Zoie Potter PA-C Work Phone: [facility] Start: 07-31-2021 Progress Note Zoie garcias PA-C [facility] Phone[facility] Start: 04-27-2021 Patient encounter procedure Misty Rene PA-C Work Phone: [facility] Start: 04-27-2021 Progress Note Misty Rene PA-C Work Phone: [facility] Start: 03-27-2021 Patient encounter procedure Asif Del Valle CLEANER AND PRESSER.EKG MONITOR Work Phone: [facility] Start: 03-27-2021 Progress Note Asif Del Valle APR N.EKG MONITOR Work Phone: [facility] Start: 03-22-2021 Patient encounter procedure Asif Del Valle CLEANER AND PRESSER.EKG MONITOR Work Phone: [facility] Start: 03-22-2021 Progress Note Asif Del Valle APR N.EKG MONITOR Work Phone: [facility] Start: 12-30-2020 Patient encounter procedure Destini Rogel Work Phone: [facility] Start: 12-30-2020 Progress Note Destini Nolasco chuyita Work Phone: [facility] Procedures Date Procedure Procedure Detail Performing [...] after 1st trimest 09/23 gestation Elba Khanna APRN.EKG MONITOR Work Phone: Start: 02-11-2025 Antibody screen KIMI CORREIA Comment on above: Order Comment: Speci men Type: BLOOD SPECIMEN Ordering Facility: [facility] Address: [address] [place] [address] Performed By: #### T SPN #### [facility] CLIA [id number] [address] [place] [address] [place] Start: 02-08-2025 Us [...] after 1st trimest 09/23 gestation Elba Fernandezcar CLEANER AND PRESSER.EKG MONITOR Work Phone: Start: 01-21-2025 Follow-up visit Follow Up LALITO Art ROCHA Start: 12-25-2024 Urnls dip stick/tabl et rgnt non-auto w/o micrscp Alfred Arcos MD Work Phone: Start: 12-25-2024 Us preg uterus after 1st trimest 09/23 gestation Elba Jimcar GARCIA.EKG MONITOR Work Phone: Start: 12-03-2024 Urnls dip stick/tabl et rgnt non-auto w/o micrscp Alfred Arcos MD Work Phone: Start: 12-03-2024 Us preg uterus after 1st trimest 09/23 gestation Elba Fernandezcar CLEANER AND PRESSER.EKG MONITOR Work Phone: Start: 11-06-2024 Us preg uterus after 1st trimest 09/23 gestation Melissa Aguilera MD Work Phone: Start: 10-09-2024 Urnls dip stick/tabl et rgnt non-auto w/o micrscp Melissa Aguilera MD Work Phone: Start: 10-09-2024 Us preg uterus after 1st trimest 09/23 gestation Kati Rolle CLEANER AND PRESSER.CN Work Phone: Start: 09-11-2024 Antibody screen KIMI CORREIA Comment on above: Order Comment: Speci men Type: BLOOD SPECIMEN Ordering Facility: [facility] Address: [address] [place] [address] Performed By: #### M AT21 #### [facility] [id number] [address] [place] [address] Start: 09-11-2024 Us nuchal translucency 1st gestation Kati Rolle CLEANER AND PRESSER.CNM Work Phone: Start: 08-10-2024 Radiologic exam ches t 2 views Yong Gatito CLEANER AND PRESSER.EKG MONITOR Work Phone: Start: 08-03-2024 H/O: section Previous delivery affecting , antepartum Kati Rolle CLEANER AND PRESSER.CNM Work Phone: Start: 08-03-2024 Us uterus limited 1/> fetuses Kati Rolle CLEANER AND PRESSER.CNM Work Phone: Start: 07-11-2024 UA DIP,URINE HCG (POC) [facility] Provider Start: 06-19-2024 Radiologic exam ches t 2 views Arleen Arcos CLEANER AND PRESSER.EKG MONITOR Work Phone: Start: 05-01-2022 Adult depression screening assessment Asif Gonzalezyer CLEANER AND PRESSER.EKG MONITOR Work Phone: H/O: section Previous c esarean [...] DTaP,Tdap,Td Vaccine (8 - Td or Tdap) [facility] Start: 08-03-2027 Screening for malignant neoplasm of cervix Cervical Cancer Screening [facility] Start: 05-24-2025 Influenza vaccination Influenz a Vaccine (Season Ended) [facility] Start: 05-03-2025 End: 05-03-2025 ambulatory 05/03/2025 3:40 PM EDT [facility] Endocrinology [address], [place] [id number] Lalito Rocha, DO [address] [place] [address] post 05/03 virtual nd Endocrinology Comment on above: post 05/03 vir tumi ok Start: 04-23-2025 End: 07-23-2025 GLUC HENRIQUE, 2-HR NON-GEST, 75 GM, FASTING GLUC HENRIQUE, 2-HR NON-GEST, 75 GM, FASTING Lab Routine Insulin controlled gestational diabetes mellitus (GDM) in third trimester (HCC) Expected: 04/23/2025 (Approximate), Expires: 07/23/2025 [facility] Work Phone: Comment on above: Expected: 04/23/2025 (Approximate), Expires: 07/23/2025 Start: 03-12-2025 End: 03-12-2025 Patient encounter procedure 03/12/2025 10:50 AM EDT Office Visit OB/Gynecology [address] [place], [place] [address] Melissa Aguilera MD [address] [place] [address] 1 week incision check OB/Gynecology Comment on above: 1 week incision chec k Start: 03-05-2025 ambulatory Ambulatory Facility:[facility] Start: 03-02-2025 End: 03-02-2025 Patient encounter procedure OB/Gynecology Comment on above: NST Ob Start: 03-01-2025 End: 03-01-2025 [facility] Start: 03-01-2025 Nonstress test [facility] Start: 03-01-2025 Obstetric monitoring [facility] Start: 03-01-2025 Vital signs measurements [facility] Start: 03-01-2025 Bacteria identified in Urine by Culture Urine Culture [facility] Start: 03-01-2025 Nonstress test [facility] Start: 03-01-2025 Obstetric monitoring [facility] Start: 03-01-2025 Vital signs measurements [facility] Start: 03-01-2025 [facility] Start: 03-01-2025 Patient discharge [facility] Start: 02-26-2025 End: 02-26-2025 Patient encounter procedure OB/Gynecology Comment on above: NST OB Start: 02-24-2025 Nonstress test [facility] Start: 02-24-2025 Obstetric monitoring [facility] Start: 02-24-2025 [facility] Start: 02-24-2025 Vital signs measurements [facility] Start: 02-24-2025 Patient discharge [facility] Start: 02-22-2025 End: 02-22-2025 ambulatory 02/22/2025 11:00 AM EDT [facility] [address] [place] [address] Lalito Rocha, [address] [place] [address] 4 weeks virtual ok- GDM Endocrinology Comment on above: 4 weeks virtual ok- GDM Start: 02-19-2025 End: 02-19-2025 Patient encounter procedure 02/19/2025 11:20 AM EDT Routine Office Visit OB/Gynecology [address] [place] [address] Mayra Frey MD [address] [place] [address] OB Pre Op C/S 03/05 @ [facility] OB/Gynecology Comment on above: OB Pre Op C/S 03/05 @ [facility] Start: 02-19-2025 End: 02-19-2025 Patient encounter procedure OB/Gynecology Comment on above: OB Pre Op C/S 03/05 @ [facility] Growth Start: 02-11-2025 End: 02-11-2025 Patient encounter procedure OB/Gynecology Comment on above: NST OB Routine Start: 02-08-2025 End: 02-08-2025 Patient encounter procedure 02/08/2025 11:00 AM EDT Routine Office Visit Maternal Medicine [address] [place] [address] [facility] Comment on above: [facility] Start: 02-04-2025 End: 02-04-2025 Patient encounter procedure OB/Gynecology Comment on above: NST OB Routine Start: 02-04-2025 End: 05-06-2025 Protein/Creatinine [Mass Ratio] in Urine [facility] Work Phone: Comment on above: Expected: 02/04/2025 , Expires: 05/06/2025 Start: 02-01-2025 End: 02-01-2025 Patient encounter procedure 02/01/2025 11:00 AM EDT Routine Office Visit Maternal Medicine [address] [place] [address] [facility] Comment on above: [facility] Start: 01-28-2025 End: 01-28-2025 Patient encounter procedure OB/Gynecology Comment on above: NST OB Routine Start: 01-26-2025 End: 01-26-2025 Patient encounter procedure 01/26/2025 8:00 AM EDT Routine Office Visit Maternal Medicine [address] [place] [address] [facility] Comment on above: [facility] Start: 01-25-2025 End: 01-25-2025 ambulatory 01/25/2025 1:30 PM EDT [facility] Hematology/Oncology [address] [place] [address] 2ND FLOOR Hematology/Oncology Comment on above: 2ND FLOOR Start: 01-22-2025 End: 01-22-2025 Patient encounter procedure 01/22/2025 2:40 PM EDT Routine Office Visit OB/Gynecology [address] [place] [address] Alfred Arcos MD [address] [place] [address] ob OB/Gynecology Comment on above: ob Start: 01-22-2025 End: 01-22-2025 Patient encounter procedure 01/22/2025 1:30 PM EDT Routine Office Visit Maternal Medicine [address] [place] [address] Growth /ob Maternal Medicine Comment on above: Growth /ob Start: 01-21-2025 End: 01-21-2025 Follow-up encounter 01/21/2025 8:40 AM EDT [facility] Endocrinology [address] [place] [address] Lalito Rocha, DO [address] [place] [address] 6 week virtual follow up per [facility]ology Comment on above: 6 week virtual follo w up per [facility] Start: 01-20-2025 End: 01-20-2025 ambulatory 01/20/2025 1:30 PM EDT Infusion Center Hematology/Oncology [address] [place] [address] 2ND FLOOR Hematology/Oncology Comment on above: 2ND FLOOR Start: 01-18-2025 End: 01-18-2025 ambulatory 01/18/2025 2:00 PM EDT Infusion Center Hematology/Oncology [address] [place] [address] 2ND FLOOR Hematology/Oncology Comment on above: 2ND FLOOR Start: 01-14-2025 End: 01-14-2025 ambulatory 01/14/2025 2:30 PM EDT Infusion Center Hematology/Oncology [address] [place] [address] 2ND FLOOR Hematology/Oncology Comment on above: 2ND FLOOR Start: 01-12-2025 End: 01-12-2025 ambulatory 01/12/2025 2:00 PM EDT Infusion Center Hematology/Oncology [address] [place] [address] 2ND FLOOR Hematology/Oncology Comment on above: 2ND FLOOR Start: 01-07-2025 End: 01-07-2025 Patient encounter procedure 01/07/2025 2:40 PM EDT Routine Office Visit OB/Gynecology [address] [place] [address] Alfred Arcos MD [address] [place] [address] OB-Tdap OB/Gynecology Comment on above: OB-Tdap Start: 12-25-2024 End: 12-25-2024 Patient encounter procedure Maternal Medicine Comment on above: Growth OB Start: 12-07-2024 End: 12-07-2024 Follow-up encounter 12/07/2024 8:40 AM EDT [facility] Endocrinology [address] [place] [address] Lalito Rocha, DO [address] [place], [place] [id number] 6 week follow up per [facility] Comment on above: 6 week follow up per [facility] Start: 12-03-2024 End: 03-04-2025 ANEMIA REFLEX PANEL ANEMIA REFLEX PANEL Lab Routine Pre-existing diabetes mellitus in in second trimester Previous delivery affecting , antepartum Supervision of high risk in second trimester 25 weeks gestation of Expected: 12/03/2024, Expires: 03/04/2025 [facility] Comment on above: Expected: 12/03/2024 , Expires: 03/04/2025 Start: 12-03-2024 End: 12-03-2025 SYPHILIS TREPONEMAL W/REFLEX SYPHILIS TREPONEMAL W/REFLEX Lab Routine Pre-existing diabetes mellitus in in second trimester Previous delivery affecting , antepartum Supervision of high risk in second trimester 25 weeks gestation of Expected: 12/03/2024, Expires: 12/03/2025 [facility] Work Phone: Comment on above: Expected: 12/03/2024 , Expires: 12/03/2025 Start: 12-03-2024 End: 12-03-2024 Patient encounter procedure Maternal Medicine Comment on above: Growth Growth/OB Start: 11-10-2024 End: 11-10-2024 ambulatory 11/10/2024 2:00 PM EST Procedure Pediatric Cardiology [address] [place], [place] [id number] Edie Mayer MD [address] [place], [place] [id number] Pre-existing type 2 diabetes mellitus during in [...] Office Visit OB/Gynecology [address] [place] [address] Alfred Arcos MD [address] [place] [address] OB Routine OB/Gynecology Comment on above: OB Routine Start: 11-06-2024 End: 11-06-2024 Patient encounter procedure 11/06/2024 10:30 AM EST Routine Office Visit Maternal Medicine [address] [place] [id number] Anatomy Scan [facility]aternal [facility] Comment on above: Anatomy Scan Start: 11-05-2024 End: 11-05-2024 Patient encounter procedure 11/05/2024 11:00 AM EST Routine Office Visit Maternal Medicine [address] [address] Anatomy Scan [facility]aternal [facility] Comment on above: Anatomy Scan Start: 11-03-2024 End: 11-03-2024 ambulatory 11/03/2024 9:00 AM EST [facility] Endocrinology [address] [place] [address] Eliezer Alonzo MD [address] [place] [address] 17 weeks gestation of [Z3A.17]; Pre-existing type 2 diabetes mellitus during in first trimester [O24.111] Endocrinology Comment on above: 17 weeks gestation o f [Z3A.17]; Pre-existing type 2 diabetes mellitus during in first trimester [O24.111] Start: 11-02-2024 End: 11-02-2024 Nutrition therapy 11/02/2024 1:00 PM EST Education Nutrition Therapy [address] [place] [address] [place] [address] O24.410 (ICD-10-CM) - Diet controlled gestational diabetes mellitus (GDM) in second trimester Nutrition Therapy Comment on above: O24.410 (ICD-10-CM) - Diet controlled gestational diabetes mellitus (GDM) in second trimester Start: 10-24-2024 End: 10-24-2024 ambulatory 10/24/2024 2:20 PM EST [facility] [address] [place] [address] Lalito Rocha DO [address] [place] [address] NEW GDM Endocrinology Comment on above: NEW GDM Start: 10-12-2024 End: 10-12-2024 Nutrition therapy 10/12/2024 1:45 PM EST Education Nutrition Therapy [address] [place] [address] Lay Castro, ANGELICA [address] [place] [address] O24.410 (ICD-10-CM) - Diet controlled gestational diabetes [...] Nurse Visit Endocrinology [address] [place] [address] Janice Cole, RN [address] [address] O24.410 (ICD-10-CM) - Diet controlled gestational diabetes mellitus (GDM) in second trimester Endocrinology Comment on above: O24.410 (ICD-10-CM) - Diet controlled gestational diabetes mellitus (GDM) in second trimester Start: 09-18-2024 End: 09-18-2024 ambulatory 09/18/2024 10:00 AM EST Results Only [facility] [place] [address] [place] [address] 1 hour Glucose [facility] Comment on above: 1 hour Glucose Start: 09-17-2024 End: 09-17-2025 OBSTETRIC ULTRASOUND WHI OBSTETRIC ULTRASOUND WHI Anc Imaging Routine 14 weeks gestation of Expected: 09/17/2024, Expires: 09/17/2025 [facility] Work Phone: Comment on above: Expected: 09/17/2024 , Expires: 09/17/2025 Start: 09-15-2024 End: 12-15-2024 GESTATIONAL GLUCOSE SCREEN, 1-HOUR, 50 GRAM, NON-FASTING GESTATIONAL GLUCOSE SCREEN, 1-HOUR, 50 GRAM, NON-FASTING Lab Routine Elevated hemoglobin A1c Expected: 09/15/2024, Expires: 12/15/2024 [facility] Work Phone: Comment on above: Expected: 09/15/2024 , Expires: 12/15/2024 Start: 09-11-2024 End: 12-11-2024 Chromosome 21 trisomy [Presence] in Blood or Tissue by Cytogenetics [facility] Comment on above: Expected: 09/11/2024 , Expires: 12/11/2024 Start: 09-11-2024 End: 09-11-2025 OBSTETRIC ULTRASOUND WHI OBSTETRIC ULTRASOUND WHI Anc Imaging Routine Encounter for supervision of other normal in second trimester Expected: 09/11/2024, Expires: 09/11/2025 [facility] Work Phone: Comment on above: Expected: 09/11/2024 , Expires: 09/11/2025 Start: 09-11-2024 End: 09-11-2024 Patient encounter procedure OB/Gynecology Comment on above: pregancy Nuchal Start: 08-03-2024 End: 11-02-2024 ANEMIA REFLEX PANEL ANEMIA REFLEX PANEL Lab Routine Previous delivery affecting , antepartum Expected: 08/03/2024, Expires: 11/02/2024 [facility] Work Phone: Comment on above: Expected: 08/03/2024 , Expires: 11/02/2024 Start: 08-03-2024 End: 11-02-2024 Hemoglobin A1c in Blood HEMOGLOBIN A1C Lab Routine Previous delivery affecting , antepartum Expected: 08/03/2024, Expires: 11/02/2024 [facility] Comment on above: Expected: 08/03/2024 , Expires: 11/02/2024 Start: 08-03-2024 End: 11-02-2024 Hepatitis B virus surface Ag [Presence] in Serum HEPATITIS B SURFACE ANTIGEN Lab Routine Previous delivery affecting , antepartum Expected: 08/03/2024, Expires: 11/02/2024 [facility] Comment on above: Expected: 08/03/2024 , Expires: 11/02/2024 Start: 08-03-2024 End: 11-02-2024 Hepatitis C virus Ab [Presence] in Serum HEPATITIS C ANTIBODY IA WITH CONFIRMATION Lab Routine Previous delivery affecting , antepartum Expected: 08/03/2024, Expires: 11/02/2024 [facility] Comment on above: Expected: 08/03/2024 , Expires: 11/02/2024 Start: 08-03-2024 End: 11-02-2024 HIV 1+2 Ab [Presence] in Serum or Plasma by Immunoassay HIV 1/2 COMBO WITH REFLEX TO DIFFERENTIATION Lab Routine Previous delivery affecting , antepartum Expected: 08/03/2024, Expires: 11/02/2024 [facility] Comment on above: Expected: 08/03/2024 , Expires: 11/02/2024 Start: 08-03-2024 End: 08-03-2025 NUCHAL TRANSLUCENCY WHI NUCHAL TRANSLUCENCY WHI Anc Imaging Routine Less than 8 weeks gestation of Expected: 08/03/2024, Expires: 08/03/2025 [facility] Comment on above: Expected: 08/03/2024 , Expires: 08/03/2025 Start: 08-03-2024 End: 11-02-2024 RUBELLA IGG ANTIBODY RUBELLA IGG ANTIBODY Lab Routine Previous delivery affecting , antepartum Expected: 08/03/2024, Expires: 11/02/2024 [facility] Comment on above: Expected: 08/03/2024 , Expires: 11/02/2024 Start: 08-03-2024 End: 11-02-2024 SYPHILIS TREPONEMAL W/REFLEX SYPHILIS TREPONEMAL W/REFLEX Lab Routine Previous delivery affecting , antepartum Expected: 08/03/2024, Expires: 11/02/2024 [facility] Comment on above: Expected: 08/03/2024 , Expires: 11/02/2024 Start: 08-03-2024 End: 11-02-2024 TYPE + SCREEN TYPE + SCREEN Blood Bank Routine Previous delivery affecting , antepartum Expected: 08/03/2024, Expires: 11/02/2024 [facility] Comment on above: Expected: 08/03/2024 , Expires: 11/02/2024 Start: 08-03-2024 End: 08-03-2024 Patient encounter procedure 08/03/2024 1:00 PM EST Initial Office Visit OB/Gynecology [address] [place] [address] ShannantinKati APRN.[facility] [address] [place] [place] [address] pregancy OB/Gynecology Comment on above: pregancy Start: 05-24-2024 Covid-19 Vaccine ( season) Covid-19 Vaccine () [facility] Start: 05-24-2024 Influenza vaccination Influenza Vacc ine (#1) [facility] Start: 09-23-2023 Behavioral Health Screening Behavioral Health Screening [facility] Start: 05-24-2023 Covid-19 Vaccine () Covid-19 Vaccine () [facility] Start: 05-01-2023 Adult depression screening assessment DEPRESSION SCREENING [facility] Start: 05-24-2022 Influenza vaccination INFLUENZA (#1) [facility] Start: 04-28-2022 Urine microalbumin profile DTaP,Tdap,Td Vaccine (7 - Td or Tdap) [facility] Start: 2020 PAP TESTING PAP TESTING [facility] Start: 2020 Screening for malignant neoplasm of cervix Cervical Cancer Screening [facility] Start: 2018 Urine microalbumin profile DTAP,TDAP,TD (1 - Tdap) [facility] Start: 2017 Annual PCP Team Chronic Disease Visit Annual PCP Team Chronic Disease Visit [facility] Start: 2017 Anxiety Screening Anxiety Screening [facility] Start: 2017 CHLAMYDIA SCREENING (18-24) CHLAMYDIA SCREENING (18-24) [facility] Start: 2017 Depression Screening Depression Scre ening [facility] Start: 2017 GC (GONORRHEA) SCREENING (18-24) GC (GONORRHEA) SCREENING (18-24) [facility] Start: 2017 HEPATITIS C SCREENING HEPATITIS C [facility] Start: 2017 Hepatitis C screening Hepatitis C [facility] Start: 2017 HIV SCREENING HIV SCREENING [facility] Start: 2017 HIV screening HIV Screening [facility] Start: 2017 Spirometry Spirometry [facility] Start: 2015 Meningococcal B Vaccine: Consider Based On Risk (1 of 2 - Patient Seeks Protection) Meningococcal B Vaccine: Consider Based On Risk (1 of 2 - Patient Seeks Protection) [facility] Start: 2014 HPV Vaccine (1 - 3-dose series) HPV Vaccine (1 - 3-dose series) [facility] Start: 2013 PEDS TO ADULT TRANSITION ANNUAL ASSESSMENT PEDS TO ADULT TRANSITION ANNUAL ASSESSMENT [facility] Start: 2011 PEDS TO ADULT TRANSITION INITIAL DISCUSSION PEDS TO ADULT TRANSITION INITIAL DISCUSSION [facility] Start: 2010 HPV VACCINE (1 - 2-dose series) HPV VACCINE (1 - 2-dose series) [facility] Start: 2009 MENINGOCOCCAL B: Consider based on risk (1 of 2 - Risk Bexsero 2-dose series) MENINGOCOCCAL B: Consider based on risk (1 of 2 - Risk Bexsero 2-dose series) [facility] Start: 03-03-2000 COVID-19 VACCINE (#1) COVID-19 VACCI NE (#1) [facility] Start: 1999 HEPATITIS B (1 of 3 - 3-dose series) HEPATITIS B (1 of 3 - 3-dose series) [facility] Bacteria identified in Urine by Culture URINE CULTURE Microbiology Routine Previous delivery affecting , antepartum 08/03/2024 2:04 PM [facility] Chlamydia trachomatis+Neisseria gonorrhoeae DNA [Presence] in Unspecified specimen by PARADISE with probe detection GONORRHEA/CHLAMYDIA NAAT Lab Routine Previous delivery affecting , antepartum 08/03/2024 2:04 PM [facility] COVID & INFLUENZA A/ B & RSV PCR, ROUTINE COVID & INFLUENZA A/B & RSV PCR, ROUTINE Microbiology Routine URI, acute Ordered: 06/19/2024 [facility] Work Phone: Comment on above: Ordered: 06/19/2024 End: 10-09-2025 ECHO ECHO Cardiology Routine Pre-existing type 2 diabetes mellitus during in first trimester Pre-existing diabetes mellitus in in second trimester 1 Occurrences starting 10/09/2024 until 10/09/2025 [facility] Work Phone: Comment on above: 1 Occurrences starti ng 10/09/2024 until 10/09/2025 End: 04-16-2025 nonstress test NON-STRESS TEST Procedures Routine Pre-existing diabetes mellitus in in second trimester ([facility]) Once per week for 6 Occurrences starting 01/22/2025 until 04/16/2025 [facility] Comment on above: Once per week for 6 Occurrences starting 01/22/2025 until 04/16/2025 Microscopic urinalysis [facility] End: 03-17-2025 OBSTETRIC ULTRASOUND WHI OBSTETRIC ULTRASOUND WHI Anc Imaging Routine Diet controlled gestational diabetes mellitus (GDM) in second trimester Once per month for 5 Occurrences starting 09/18/2024 until 03/17/2025 [facility] Work Phone: Comment on above: Once per month for 5 Occurrences starting 09/18/2024 until 03/17/2025 End: 04-02-2025 OBSTETRIC ULTRASOUND WHI OBSTETRIC ULTRASOUND WHI Anc Imaging Routine Pre-existing diabetes mellitus in in second trimester ([facility]) Once per week for 6 Occurrences starting 01/22/2025 until 04/02/2025 [facility] Comment on above: Once per week for 6 Occurrences starting 01/22/2025 until 04/02/2025 Organism count, microscopic method [facility] PAP TEST PAP TEST Lab Yahir fajardo Screening for malignant neoplasm of cervix 08/03/2024 2:04 PM EST [facility] Patient Education Kick Counts ED False Labor OB Triage: Return to Hospital or Notify Physician if you Experience: [facility] Work Phone: Patient referral [facility] Work Phone: ROUTINE, GROUP B STREPTOCOCCUS BY PCR ROUTINE, GROUP B STREPTOCOCCUS BY PCR Microbiology Routine Supervision of high risk in third trimester ([facility]) Pre-existing diabetes mellitus in in third trimester ([facility]) Previous section Anemia complicating , third trimester ([facility]) Obesity during ([facility]) 02/19/2025 1:44 PM EDT [facility] Urine culture [facility] Urine microscopy: epithelial cells [facility] Urine microscopy: re d cells [facility] URINE OB DIP B/O URINE OB DIP B/ O Lab Routine Pre-existing diabetes mellitus in in second trimester 21 weeks gestation of Previous delivery affecting , antepartum Supervision of high risk in second trimester Ordered: 11/06/2024 [facility] Work Phone: Comment on above: Ordered: 11/06/2024 URINE OB DIP B/O URINE OB DIP B/ O Lab Routine 32 weeks gestation of (HCC) Pre-existing diabetes mellitus in in second trimester (HCC) Previous section Anemia complicating , third trimester (HCC) Ordered: 01/22/2025 [facility] Work Phone: Comment on above: Ordered: 01/22/2025 URINE OB DIP B/O URINE OB DIP B/ O Lab Routine Previous section Anemia complicating , third trimester (HCC) Supervision of high risk in third trimester ([facility]) 33 weeks gestation of (HCC) Pre-existing diabetes mellitus in in third trimester (HCC) Ordered: 01/28/2025 [facility] Work Phone: Comment on above: Ordered: 01/28/2025 URINE OB DIP B/O URINE OB DIP B/ O Lab Routine Supervision of high risk in third trimester (HCC) Pre-existing diabetes mellitus in in third trimester (HCC) Previous section Anemia complicating , third trimester (HCC) Obesity during ([facility]) Ordered: 02/19/2025 [facility] Work Phone: Comment on above: Ordered: 02/19/2025 White blood cell count [facility] Immunizations Immunization Date Immunization Notes Care Provider Fa tobias 02-11-2025 RHO(D) immune globul in- IV or IM Whi Mob [facility] 01-07-2025 tetanus toxoid, redu anil diphtheria toxoid, and acellular pertussis vaccine, adsorbed Alfred Arcos MD Work Phone: [facility] 04-28-2012 tetanus toxoid, redu anil diphtheria toxoid, and acellular pertussis vaccine, adsorbed Shu Gomez APRN.EKG MONITOR Work Phone: [facility] 06-30-2010 influenza, seasonal, injectable Shu Gomez CLEANER AND PRESSER.EKG MONITOR Work Phone: [facility] 06-30-2010 influenza virus vacc ine, unspecified formulation Riccardo WERNER Work Phone: [facility] 05-04-2005 diphtheria, tetanus toxoids and acellular pertussis vaccine, unspecified formulation Shu Praisler-Wood CLEANER AND PRESSER.EKG MONITOR Work Phone: [facility] 05-04-2005 measles, mumps and rubella virus vaccine Shu Praisler-Wood CLEANER AND PRESSER.EKG MONITOR Work Phone: [facility] 05-04-2005 poliovirus vaccine, inactivated Shu Praisler-Wood CLEANER AND PRESSER.EKG MONITOR Work Phone: [facility] 02-21-2001 diphtheria, tetanus toxoids and acellular pertussis vaccine, unspecified formulation Shu Praisler-Wood CLEANER AND PRESSER.EKG MONITOR Work Phone: [facility] 02-21-2001 haemophilus influenz ae type b vaccine, conjugate unspecified formulation Shu Praisler-Wood CLEANER AND PRESSER.EKG MONITOR Work Phone: [facility] 02-21-2001 poliovirus vaccine, inactivated Shu Praisler-Wood CLEANER AND PRESSER.EKG MONITOR Work Phone: [facility] 09-06-2000 hepatitis B vaccine, pediatric or pediatric/adolescent dosage Shu Praisler-Wood CLEANER AND PRESSER.EKG MONITOR Work Phone: [facility] 09-06-2000 measles, mumps and rubella virus vaccine Shu Praisler-Wood CLEANER AND PRESSER.EKG MONITOR Work Phone: [facility] 02-16-2000 diphtheria, tetanus toxoids and acellular pertussis vaccine, unspecified formulation Shu Praisler-Wood CLEANER AND PRESSER.EKG MONITOR Work Phone: [facility] 02-16-2000 haemophilus influenz ae type b conjugate and Hepatitis B vaccine Shu Praisler-Wood CLEANER AND PRESSER.EKG MONITOR Work Phone: [facility] 1999 diphtheria, tetanus toxoids and acellular pertussis vaccine, unspecified formulation Shu Praisler-Wood CLEANER AND PRESSER.EKG MONITOR Work Phone: [facility] 1999 haemophilus influenz ae type b vaccine, conjugate unspecified formulation Shu Praisler-Wood CLEANER AND PRESSER.EKG MONITOR Work Phone: [facility] 1999 hepatitis B vaccine, pediatric or pediatric/adolescent dosage Shu Gomez APRN.EKG MONITOR Work Phone: [facility] 1999 poliovirus vaccine, inactivated Shuvictorino Gomez CLEANER AND PRESSER.EKG MONITOR Work Phone: [facility] 1999 diphtheria, tetanus toxoids and acellular pertussis vaccine, unspecified formulation Shu Gomez APRN.EKG MONITOR Work Phone: [facility] 1999 haemophilus influenz ae type b vaccine, conjugate unspecified formulation Shu Gomez APRN.EKG MONITOR Work Phone: [facility] 1999 poliovirus vaccine, inactivated Shuvictorino Gomez APRN.EKG MONITOR Work Phone: [facility] Payers Date Payer Category Payer Self-pay 2022 Medicaid [id number] 2022 Medicaid [id number] 2021 Medicaid [id number] 1999 Unknown [id number] [id number] 1999 Unknown [id number] [id number] Unknown [facility] [id number] Unknown [id number] [id number] Unknown [id number] [id number] Unknown [id number] [id number] [id number] Unknown [id number] 2.16.8 [id number] Unknown [id number] 2.16.8 [id number] Social History Date Type Detail Facility Tobacco smoking stat us GAIS Tobacco smoking consumption unknown [facility] Start: 2000 Sex Assigned At Not on file C [facility] Start: 05-01-2022 End: 10-07-2024 Tobacco smoking status GAIS Never smoked tobacco [facility] Start: 05-01-2022 Tobacco use and exposure Smokeless tobacco non-user [facility] Start: 05-01-2022 End: 03-02-2025 Alcohol intake Ex-drinker (finding) [facility] Start: 04-21-2022 End: 05-01-2022 Exposure to SARS-CoV-2 (event) Not sure [facility] Start: 03-23-2024 End: 08-03-2024 History of Social function [facility] Start: 03-23-2024 End: 08-03-2024 Tobacco use panel [facility] Adult Depression Screening Assessment 0 [facility] Start: 06-24-2024 [facility] The thought of julio hernandez myself has occurred to me Hardly ever [facility] Start: 2000 Sex Assigned At Female W [facility] [place] [facility] Equipment Procedure Code Equipment Code Equipment Origin al Text Equipment Identifier Dates Use as directed to check glucose levels up to seven times daily. [id number] Start: 09-18-2024 Use as directed to check glucose levels up to seven times daily. [id number] Start: 09-18-2024 Use to inject insulin up to 4 times per day. [id number] Start: 10-24-2024 Goals Date Patient Goal Desired [...] will review again next week- thanks! VIKRAM [facility] 03-04-2025 Miscellaneous Notes Formattin g of [...] week- thanks! VIKRAM documented in this encounter [facility] 03-02-2025 Note HNO ID: [id number] Author: ALFRED ARCOS MD Service: ? Author [...] None Interpretation: Reactive SIGNATURE: Alfred Arcos MD [facility] 03-02-2025 History of Presen t illness Narrative [...] Alfred Arcos MD documented in this encounter [facility] 03-02-2025 Instructions Janina Flores MA - 03/02/2025 9:20 AM EDT SEQUENTIAL SCREENINGS The [facility] offers sequential screenings for women who [...] It will require an appointment with our pharmacy technician instructor. This is not an ultrasound performed by [...] the above symptoms, contact our office at [phone] and ask to speak with a nurse. After hours, you can call doctors registry at [phone] OR call [facility] at [phone] and ask to have the doctor hospice consultant paged. If you consider this an emergency, dial 9-1-1 or go to your nearest emergency department. NEED HELP? Are you dealing with a violent or abusive relationship? Are you a victim of rape or sexual assult? Call [facility] ([place]) 24 hour Crisis Hotline: 516.935.1575 or 918-364-0172. MANUAL Your Guide to a Healthy manual is now on-line. Visit [email or web address] [email or web address] to download your free copy documented in this encounter [facility] 03-01-2025 Telephone encount er Note Patient notified and voiced understanding. Patient states she will go to [place] [facility]. L&D called and notified. Edel Rios RN [facility] 03-01-2025 Miscellaneous Notes Formattin g of this note might be different from the original. Patient notified and voiced understanding. Patient states she will go to [place] [facility]. L&D called and notified. Edel Rios RN She can come back to [place] if she wants to go to [facility] b/c it is closer she can go there but if she is ruptured she would likely be delivered there. Patient called. States that [facility] around noon. Not ruptured. Shortly after [...] She asked if she should go to [place] for a swab to rule out rupture [...] Melissa Trimble RN documented in this encounter [facility] 03-01-2025 Telephone encount er Note She can come back to [place] if she wants to go to [facility] b/c it is closer she can go there but if she is ruptured she would likely be delivered there. [facility] 03-01-2025 Telephone encount er Note Patient called. States that she was [facility] around noon. Not ruptured. Shortly after [...] She asked if she should go to [place] for a swab to rule out rupture since they are closer. Advised they would keep her if she was ruptured. She does not want to deliver there. What do you recommend? Melissa Trimble RN [facility] 03-01-2025 History and physical note Note Date/Time March 01, 2025 1:36p m [facility] Medical Records Department [address] [place] [address] OB Triage Physician Note 03/01/25 1334 MR#: [id number] Acct: [id number] Name: VAL RUIZ Rep #:[id number] : 2000 24 From: Mayra Vincent MD PCP: Care Physician,No Primary Status :DEP CLI Y Location: [facility] HPI - General General Date of Service: [...] MD; No Primary Care Physician ~ Signed [facility] Work Phone: 1(793) 650-961606-09-2025 History and physical note [facility] Medical Records Department [address] [place] [address] OB Triage Physician Note 03/01/25 1334 MR#: [id number] Acct: [id number] Name: VAL RUIZ Rep #:[id number] : 2000 From: Mayra Vincent MD PCP: Care Physician,No Primary Status :DEP CLI Y Location: [facility] HPI - General General Date of Service: [...] concerns 03/01/25 1336 Lance NICOLAS> Date _ Mayra Cam MD Cosigner Signature (if applicable): Date CC: Dr Mayra Cam MD; No Primary Care Physician ~ Signed [facility]06-09-2025 Telephone encounter Note* Telephone Encounter - Mayra Frey MD - 03/01/2025 10:50 AM EDT Noted [facility]06-09-2025 Telephone encounter Note* Telephone Encounter - [...] arrive in 40 minutes. Melissa Trimble, RN [facility]06-06-2025 NoteHNO ID: [id number] Author: WOODY BASS MD Service: ? Author [...] Contractions: TOCO: None Interpretation: Reactive SIGNATURE: [facility] History of Present illness Narrative* Woody Bass [...] SIGNATURE: Woody Bass DO documented in [facility] Progress note* Quick Notes - Woody Bass MD - 02/26/2025 10:30 AM EDT SW- no pain, vb, lof. Good FM PE: Gen- NAD, well appearing Abd- Gravid, NT See flowsheet A/p 37 wk gestation - Pre existing diabetes: Cont following with endo - NST reactive - MOD: Scheduled for repeat C/S next week - RTO 1 wk Woody Bass DO [facility]06-06-2025 Miscellaneous Notes* Quick Notes - Woody [...] wk Woody Bass DO documented in this encounter[facility] Instructions* Patient Instructions* Irasema Navarro MA - 02/26/2025 9:15 AM EDT SEQUENTIAL SCREENINGS The [facility] offers sequential screenings for women who [...] testing. It will require an appointment withour pharmacy technician instructor. This is not an ultrasound performed by [...] the above symptoms, contact our office at [phone] and ask to speak with anurse. After hours, you can call doctors registry at [phone] OR call [facility] at [phone] ask to have the doctor hospice consultant paged. If you consider this an emergency, dial 9-1-0 or go to your nearest emergency department. NEED HELP? Are you dealing with a violent or abusive relationship? Are you a victim of rape or sexual assult? Call [facility] ([place]) 24 hour Crisis Hotline: 581.194.7434 or 974-790-3516. MANUAL Your Guide to a Healthy manual is now on-line. Visit [email or web address] to download your free copy documented [facility] History and physical note [facility] Medical Records Department [address] [place] [address] OB Triage Physician Note 02/24/25 1740 MR#: [id number] Acct: [id number] Name: VAL RUIZ Rep #:[id number] : 2000 24 From: Kati Rolle CNM PCP: Care Physician,No Primary Status :REG CLI Y Location: [address] HPI - General HPI Narrative VAL [...] Rolle; No Primary Care Physician ~ Signed [facility]06-04-2025 History and physical note Author Kati Rolle [facility] Note Date/Time February 24, 2025 7:57p m [facility] Medical Records Department [address] [place] [address] OB Triage Physician Note 02/24/25 1740 MR#: [id number] Acct: [id number] Name: VAL RUIZ Rep #:[id number] : 2000 24 From: Kati Rolle CNM PCP: Care Physician,No Primary Status :REG CLI Y Location: [place] [address]-1 HPI - General HPI Narrative VAL RUIZ, [...] follow up in office as scheduled Dr. Vnicent aware of A&P 02/24/251956 <Electronically signed by Kati castle CNM> Date _ Kati Rolle CNM Cosigner Signature (if applicable): Date ____ CC: LINA Rolle; No Primary Care Physician ~ Signed [facility] Work Phone: [phone] 312-121506-04-2025 Evaluation note* Diagnosis Onset Date Resolution Status Admit Date 37 weeks gestation of acut e February 24, 2025 4:23pm Cramping affecting , antepartum acute February 24, 2025 4 :23pm Headache acute February 24, 2025 4:23pm History of delivery affecting acute February 24 4:23pm [facility] Work Phone: 1(238) 827-701606-04-2025 Evaluation note* Diagnosis Onset Date Resolution Status [...] trimester, acute March 01, 2025 1 1:05am [facility] Work Phone: 1(720) 559-629006-04-2025 NoteHNO ID: [id number] Author: ?, ?, ? Service: ? Author Type: ? Type: Progress Notes Filed: 02/24/2025 16:11 Note Text: Left voicemail for patient to call [phone] to schedule post visit 05/03/2025 virtual ok. Sent patient my chart message to call [phone] to schedule post on 05/03/2025.[facility]06-04-2025 Telephone encounter Note* Telephone Encounter - Kati Rolle APRN.CNM - 02/24/2025 3:46 PM EDT Thank you for the update. Kati Rolle APRN.CNM [facility]06-04-2025 Miscellaneous Notes* Telephone Encounter - Kati [...] office and is going to go to [facility] for evaluation. documented in this encounterB[facility] Telephone encounter Note * Telephone Encounter [...] office and is going to go to [facility] for evaluation. [facility]06-02-2025 NoteHNO ID: [id number] Author: ?, ?, ? Service: ? Author Type: ? Type: Progress Notes Filed: 02/22/2025 14:15 Note Text: Left voicemail for patient to call [phone] to schedule post visit 05/03/2025 virtual ok.[facility]06-02-2025 History of Present illness Narrative* Jacinta Oscar - 02/22/2025 2:15 PM EDT Left voicemail for patient to call [phone] to schedule post visit 05/03/2025 virtual ok. [...] visit. Either the patient or their legal medical field representative has been informed of the risks [...] daily- reports the following BG data today: Wavlatn18-48 mg/dL 2 hour post meal in general less than 120 mg/dL (occasional outlier) Hypoglycemia frequency: n/a Hypoglycemia awareness: n/a Hyperglycemia Symptoms: denies blurry vision reports polyuria denies polydipsia reports nocturia denies rapid weight loss Last visit with OB was 02/19- scheduled for March 05 at 38 weeks. She is delivering in [place]. Last u/s growth was 02/19- EFW 62nd [...] times a day. 60 tablet 5 Insulin Patterson, Disposable, (PEN NEEDLE) 32 gauge x 5/32 [...] which included preparing to see the patient, [id number] patient care, completing clinical documentation, obtaining and/or reviewing separately obtained history, performing a medically appropriate examination, counseling and educating the pat ient/family/caregiver, and ordering medications, tests, or procedures. Lalito Rocha DO documented in this encounterBrec[facility]ville [facility]06-[facility]-2025 NoteHNO ID: [id number] Author: LALITO ROCHA DO Service: ? Author [...] visit. Either the patient or their legal medical field representative has been informed of the risks [...] daily- reports the following BG data today: Vwsirhh50-82 mg/dL 2 hour post meal in general less than 120 mg/dL (occasional outlier) Hypoglycemia frequency: n/a Hypoglycemia awareness: n/a Hyperglycemia Symptoms: denies blurry vision reports polyuria denies polydipsia reports nocturia denies rapid weight loss Last visit with OB was 02/19- scheduled for March 05 at 38 weeks. She is delivering in [place]. Last u/s growth was 02/19- EFW 62nd [...] times a day. 60 tablet 5 Insulin Patterson, Disposable, (PEN NEEDLE) 32 gauge x 5/32 [...] Allergen Noted Reaction CEPHA (more content not included)...[facility]05-31-2025 Telephone encounter Note* Telephone Encounter - Lalito [...] Will review again next week- thanks! KB [facility]05-31-2025 Miscellaneous Notes* Telephone Encounter - Lalito [...] next week- thanks! KB documented in this encounterBrecksville [facility]05-30-[facility] Note Indication Evaluation of growth, Evaluation [...] 9 oz EFW by: Hadlock (HC-AC-FL) Extended Geologic Technician 5.4 mm Extremities / Bony Struc FL [...] RDMS, RVT Read By: Kristine Raza M.D.MATERNAL [id number] Instructions * Patient Instructions* Yamila Azar MA - 02/19/2025 11:19 AM EDT SEQUENTIAL SCREENINGS The [facility] offers sequential screenings for women who [...] testing. It will require an appointment withour pharmacy technician instructor. This is not an ultrasound performed by [...] the above symptoms, contact our office at [phone] and ask to speak with anurse. After hours, you can call doctors registry at [phone] OR call [facility] at [phone] ask to have the doctor hospice consultant paged. If you consider this an emergency, dial 2--5 or go to your nearest emergency department. NEED HELP? Are you dealing with a violent or abusive relationship? Are you a victim of rape or sexual assult? Call [facility] ([place]) 24 hour Crisis Hotline: 486.262.6384 or 485-686-6573. MANUAL Your Guide to a Healthy manual is now on-line. Visit [email or web address] to download your free copy documented in this encounterBrec[facility]05[facility] History and physical note * Mayra [...] times a day. 60 tablet 5 Insulin Patterson, Disposable, (PEN NEEDLE) 32 gauge x 5/32 [...] history, medications and allergies Mayra Vincent MD [facility]05-30-2025 History and physical note* Mayra Frey [...] times a day. 60 tablet 5 Insulin Patterson, Disposable, (PEN NEEDLE) 32 gauge x 5/32 [...] allergies Mayra Vincent MD documented in this encounterBrecksville [facility]05-30-[facility] Progress note* Quick Notes - Mayra [...] was discussed with the patient or authorized medical field representative. The patient or authorized medical field representative has agreed to proceed with the [...] US pending today NST Mayra Cam MD [facility]05-30-2025 Miscellaneous Notes* Quick Notes - Mayra [...] was discussed with the patient or authorized medical field representative. The patient or authorized medical field representative has agreed to proceed with the [...] NST Mayra Cam MD documented in this encounterBrecksville [facility]05-22-2025 NoteHNO ID: [id number] Author: MELISSA AGUILERA MD Service: ? Author Type: Physician Type: Progress Notes Filed: 02/11/2025 20:28 Note Text: NST SUMMARY PROVIDER ASSESSMENT AND INTERPRETATION Indications for NST: Diabetes - Insulin Controlled Baseline: 140 Variability: Moderate Accelerations: Present 15 X 15 Decelerations: None Interpretation: Reactive SIGNATURE: Melissa Aguilera, [facility]05-22-2025 NoteHNO ID: [id number] Author: MELISSA AGUILERA MD Service: ? Author [...] given her Rhophylac pocket card. Lisa Thompson [facility] Note Indication Evaluation of well-being Diabetes mellitus, [...] RDMS, RVT Read By: Ly Nugent M.D.MATERNAL [id number] NoteHNO ID: [id number] Author: GEE CARLIN MD Service: ? Author [...] TOCO: None Interpretation: Reactive SIGNATURE: Gee Carlin [facility]05-15-2025 History of Present illness Narrative* Gee Carlin [...] SIGNATURE: Gee Carlin MD documented in this encounterBrecksville [facility]05-[facility] Progress note* Quick Notes - Gee [...] Supervision of high risk in third trimester ([facility]) Orders: URINE OB DIP B/O PROTEIN / CREATININE RATIO; Future COMPLETE BLOOD COUNT; Future COMPREHENSIVE METABOLIC PANEL; Future Previous section plans repeat, has scheduled Orders: URINE OB DIP B/O PROTEIN / CREATININE RATIO; Future COMPLETE BLOOD COUNT; Future COMPREHENSIVE METABOLIC PANEL; Future Pre-existing diabetes mellitus in in third trimester ([facility]) Reports BS to endocrine, reports good control Orders: URINE OB DIP B/O PROTEIN / CREATININE RATIO; Future COMPLETE BLOOD COUNT; Future COMPREHENSIVE METABOLIC PANEL; Future 34 weeks gestation of ([facility]) Orders: URINE OB DIP B/O PROTEIN / CREATININE RATIO; Future COMPLETE BLOOD COUNT; Future COMPREHENSIVE METABOLIC PANEL; Future Headache in , antepartum, third trimester ([facility]) check labs, d/w her symptomatic measures, trial of reglan Orders: PROTEIN / CREATININE RATIO; Future COMPLETE BLOOD COUNT; Future COMPREHENSIVE METABOLIC PANEL; Future NST reactive, next growth scan as scheduled. check preeclampsia labs to be thorough, return for signs/symptoms of severe preeclampsia Gee Carlin M.D. [facility]05-15-2025 Miscellaneous Notes* Quick Notes - Gee [...] Supervision of high risk in third trimester ([facility]) Orders: URINE OB DIP B/O PROTEIN / CREATININE RATIO; Future COMPLETE BLOOD COUNT; Future COMPREHENSIVE METABOLIC PANEL; Future Previous section plans repeat, has scheduled Orders: URINE OB DIP B/O PROTEIN / CREATININE RATIO; Future COMPLETE BLOOD COUNT; Future COMPREHENSIVE METABOLIC PANEL; Future Pre-existing diabetes mellitus in in third trimester ([facility]) Reports BS to endocrine, reports good control Orders: URINE OB DIP B/O PROTEIN / CREATININE RATIO; Future COMPLETE BLOOD COUNT; Future COMPREHENSIVE METABOLIC PANEL; Future 34 weeks gestation of ([facility]) Orders: URINE OB DIP B/O PROTEIN / CREATININE RATIO; Future COMPLETE BLOOD COUNT; Future COMPREHENSIVE METABOLIC PANEL; Future Headache in , antepartum, third trimester ([facility]) check labs, d/w her symptomatic measures, trial of reglan Orders: PROTEIN / CREATININE RATIO; Future COMPLETE BLOOD COUNT; Future COMPREHENSIVE METABOLIC PANEL; Future NST reactive, next growth scan as scheduled. check preeclampsia labs to be thorough, return for signs/symptoms of severe preeclampsia Gee Carlin M.D. documented in this encounterBrecksville [facility]05-15-[facility] Instructions* Patient Instructions* Janice Pina MA - 02/04/2025 1:55 PM EDT SEQUENTIAL SCREENINGS The [facility] offers sequential screenings for women who [...] testing. It will require an appointment withour pharmacy technician instructor. This is not an ultrasound performed by [...] the above symptoms, contact our office at [phone] and ask to speak with anurse. After hours, you can call doctors registry at [phone] OR call [facility] at [phone] ask to have the doctor hospice consultant paged. If you consider this an emergency, dial 9-1-6 or go to your nearest emergency department. NEED HELP? Are you dealing with a violent or abusive relationship? Are you a victim of rape or sexual assult? Call [facility] ([place]) 24 hour Crisis Hotline: 553.531.7753 or 713-680-2097. MANUAL Your Guide to a Healthy manual is now on-line. Visit [email or web address] to download your free copy documented in this encounterBrec[facility]ville [facility] Telephone encounter Note * Telephone Encounter [...] Will review again next week- thanks! KB [facility]05-13-2025 Miscellaneous Notes* Telephone Encounter - Lalito [...] next week- thanks! KB documented in this encounterBrecksville [facility] Note Indication Evaluation of well-being Diabetes [...] RDMS, RVT Read By: Ly Nugent M.D.MATERNAL [id number] NoteHNO ID: [id number] Author: ALFRED ARCOS MD Service: ? Author [...] TOCO: None Interpretation: Reactive SIGNATURE: Alfred Arcos [facility]05-08-2025 History of Present illness Narrative* Alfred Arcos [...] SIGNATURE: Alfred Arcos MD documented in this encounterBrecksville [facility] Instructions* Patient Instructions* Yamila Azar MA - 01/28/2025 2:19 PM EDT SEQUENTIAL SCREENINGS [facility] offers sequential screenings for women who [...] testing. It will require an appointment withour pharmacy technician instructor. This is not an ultrasound performed by [...] the above symptoms, contact our office at [phone] and ask to speak with anurse. After hours, you can call [facility] at [phone] OR call [facility] at [phone] ask to have the doctor hospice consultant paged. If you consider this an emergency, dial 3-8-9 or go to your nearest emergency department. NEED HELP? Are you dealing with a violent or abusive relationship? Are you a victim of rape or sexual assult? Call [facility] ([facility] 24 hour Crisis Hotline: 242.559.7211 or 376-711-9659. MANUAL Your Guide to a Healthy manual is now on-line. Visit [email or web address] to download your free copy documented in this encounterBrecksville [facility]05[facility] Telephone encounter Note * Telephone Encounter [...] Will review again next week- thanks! KB [facility]05-07-2025 Miscellaneous Notes* Telephone Encounter - Lalito [...] next week- thanks! KB documented in this encounterBrecksville [facility] Note Indication Evaluation of well-being Diabetes [...] RDMS, RVT Read By: Ly Nugent M.D.MATERNAL [id number] Note Indication Evaluation of growth, Evaluation of [...] RDMS, RVT Read By: Ly Nugent M.D.MATERNAL [id number] NoteHNO ID: [id number] Author: ALFRED ARCOS MD Service: ? Author [...] TOCO: None Interpretation: Reactive SIGNATURE: Alfred Arcos [facility]05-02-2025 History of Present illness Narrative* Alfred Arcos [...] SIGNATURE: Alfred Arcos MD documented in this encounterBrecksville [facility] Evaluation + Plan note* Assessment & Plan Note - Alfred Arcos MD - 01/22/2025 3:16 PM EDTAssociated Problem(s): Pre-existing diabetes mellitus in in second trimester (HCC) Managed by endo. 2 times week testing ordered. Orders: URINE OB DIP B/O NON-STRESS TEST; Standing OBSTETRIC ULTRASOUND WHI; Standing [facility]05-02-2025 Miscellaneous Notes* Assessment & Plan Note - Alfred Arcos MD - 01/22/2025 3:16 PM EDTAssociated Problem(s): Pre-existing diabetes mellitus in in second trimester ([facility]) Managed by endo. 2 times week testing ordered. Orders: URINE OB DIP B/O NON-STRESS TEST; Standing OBSTETRIC ULTRASOUND WHI; Standing * Quick Notes - Alfred Arcos MD - 01/22/2025 2:56 PM EDT KJ - S: Val denies LOF, contractions or vaginal bleeding. O: 32w2d, see flow sheet SENSITIVE EXAM: Sensitive exam not performed. A/P: Assessment & Plan 32 weeks gestation of ([facility]) Orders: URINE OB DIP B/O Pre-existing diabetes mellitus in in second trimester ([facility]) Managed by endo. 2 times week testing ordered. Orders: URINE OB DIP B/O NON-STRESS TEST; Standing OBSTETRIC ULTRASOUND WHI; Standing Previous section Repeat scheduled. Orders: URINE OB DIP B/O Anemia complicating , third trimester (HCC) S/p IV iron Orders: URINE OB DIP B/O Reviewed PTL & FM precautions Alfred Arcos MD documented in this encounterBrecksville [facility]05-02-2025 Progress note* Quick Notes - Alfred Arcos MD - 01/22/2025 2:56 PM EDT KJ - S: Val denies LOF, contractions or vaginal bleeding. O: 32w2d, see flow sheet SENSITIVE EXAM: Sensitive exam not performed. A/P: Assessment & Plan 32 weeks gestation of (HCC) Orders: URINE OB DIP B/O Pre-existing diabetes mellitus in in second trimester ([facility]) Managed by endo. 2 times week testing ordered. Orders: URINE OB DIP B/O NON-STRESS TEST; Standing OBSTETRIC ULTRASOUND WHI; Standing Previous section Repeat scheduled. Orders: URINE OB DIP B/O Anemia complicating , third trimester ([facility]) S/p IV iron Orders: URINE OB DIP B/O Reviewed PTL & FM precautions Alfred Arcos MD [facility]05-02-2025 Instructions* Patient Instructions* Irasema Navarro MA - 01/22/2025 2:36 PM EDT SEQUENTIAL SCREENINGS The [facility] offers sequential screenings for women who [...] testing. It will require an appointment withour pharmacy technician instructor. This is not an ultrasound performed by [...] the above symptoms, contact our office at [phone] and ask to speak with anurse. After hours, you can call doctors registry at [phone] OR call [facility] at [phone] ask to have the doctor hospice consultant paged. If you consider this an emergency, dial [phone]- or go to your nearest emergency department. NEED HELP? Are you dealing with a violent or abusive relationship? Are you a victim of rape or sexual assult? Call [facility] ([place]) 24 hour Crisis Hotline: 973.245.6083 or 574-907-2330. MANUAL Your Guide to a Healthy manual is now on-line. Visit [email or web address] to download your free copy documented in this encounterBrecksville [facility]05-01-2025 NoteHNO ID: [id number] Author: ?, ?, ? Service: ? Author Type: ? Type: Progress Notes Filed: 01/21/2025 09:29 Note Text: Spoke with patient , scheduled 02/22/2025 @ 11:00 am (virtual appointment) [facility]05-01-2025 History of Present illness Narrative* Jacinta Oscar [...] visit. Either the patient or their legal medical field representative has been informed of the risks [...] times a day. 60 tablet 5 Insulin Patterson, Disposable, (PEN NEEDLE) 32 gauge x 5/32 [...] forward me your blood glucose data weekly ([email or web address] 3) for now - continue your current [...] which included preparing to see the patient, [id number] patient care, completing clinical documentation, obtaining and/or reviewing separately obtained history, performing a medically appropriate examination, counseling and educating the pat ient/family/caregiver, and ordering medications, tests, or procedures. Lalito Rocha DO documented in this encounterBrecksville [facility]05-01-2025 NoteHNO ID: [id number] Author: LALITO ROCHA DO Service: ? Author [...] visit. Either the patient or their legal medical field representative has been informed of the risks [...] times a day. 60 tablet 5 Insulin Patterson, Disposable, (PEN NEEDLE) 32 gauge x 5/32 [...] fever and no chills (more content not included)...[facility]04-29-2025 Telephone encounter Note* Telephone Encounter - Lalito [...] Will review again next week- thanks! VIKRAM [facility]04-29-2025 Miscellaneous Notes* Telephone Encounter - Lalito [...] next week- thanks! VIKRAM documented in this encounterBrecksville Va [facility]04-22-2025 Telephone encounter Note * Telephone Encounter [...] review again next week- thanks! Dr Rocha [facility]04-22-2025 Miscellaneous Notes* Telephone Encounter - Lalito [...] week- thanks! Dr Rocha documented in this encounterBrecksville Va / [facility]04-18-2025 Telephone encounter Note * Telephone Encounter - Melissa Chavez RN - 01/08/2025 10:47 AM EDT 3rd risk assessment form submitted 01/08/2025. Melissa Chavez RN [facility]04-18-2025 Miscellaneous Notes* Telephone Encounter - Melissa Chavez RN - 01/08/2025 10:47 AM EDT 3rd risk assessment form submitted 01/08/2025. Melissa Chavez RN documented in this encounterBrecksville Va / [facility]04-17-2025 Progress note* Quick Notes - Alfred [...] iron deficiency anemia complicating , third trimester ([facility]) Needs to schedule IV iron. Reviewed PTL & FM precautions Alfred Arcos MD [facility]04-17-2025 Miscellaneous Notes* Quick Notes - Alfred [...] iron deficiency anemia complicating , third trimester ([facility]) Needs to schedule IV iron. Reviewed PTL & FM precautions Alfred Arcos MD documented in this encounterBrecksville Va / [facility]04-17-2025 NoteHNO ID: [id number] Author: IRASEMA NAVARRO MA Service: ? Author Type: Global Climate Change Researcher Type: Progress Notes Filed: 01/07/2025 15:05 Note [...] severely ill: Yes Patient denies history of Guillain-Warren Syndrome (a severe paralytic illness): Yes Tdap Adacel injection was given without incident. See immunizations for details of immunizations administered today. VIS sheet provided: Yes Provider Alfred Arcos MD was present in office at time of injection. Irasema Navarro [facility]04-17-2025 History of Present illness Narrative* Irasema [...] severely ill: Yes Patient denies history of Guillain-Warren Syndrome (a severe paralytic illness): Yes Tdap Adacel injection was given without incident. See immunizations for details of immunizations administered today. VIS sheet provided: Yes Provider Alfred Arcos MD was present in office at time of injection. Irasema Navarro MA documented in this encounterBrecksville [facility]04-17-2025 Instructions* Patient Instructions* Irasema Navarro MA - 01/07/2025 2:10 PM EDT SEQUENTIAL SCREENINGS The [facility] offers sequential screenings for women who [...] testing. It will require an appointment withour pharmacy technician instructor. This is not an ultrasound performed by [...] the above symptoms, contact our office at [phone] and ask to speak with anurse. After hours, you can call doctors registry at [phone] OR call [facility] at [phone] ask to have the doctor hospice consultant paged. If you consider this an emergency, dial 7-1-2 or go to your nearest emergency department. NEED HELP? Are you dealing with a violent or abusive relationship? Are you a victim of rape or sexual assult? Call [facility] ([place]) 24 hour Crisis Hotline: 593.724.2724 or 904-677-1389. MANUAL Your Guide to a Healthy manual is now on-line. Visit [email or web address] to download your free copy documented in this encounterBrecksville [facility]04-15-2025 Telephone encounter Note * Telephone Encounter - Lalito oRcha DO - 01/05/2025 2:41 PM EDT Reviewed [...] Will review again next week- thanks! KB [facility]04-15-2025 Miscellaneous Notes* Telephone Encounter - Lalito [...] next week- thanks! KB documented in this encounterBrecksville Va [facility]04-09-2025 NoteHNO ID: [id number] Author: THOM DEAN RN Service: ? Author [...] by mouth two times a day. Insulin Patterson, Disposable, (PEN NEEDLE) 32 gauge x 532 [...] a provider for review and evaluation for treatment.[facility]04-09-2025 History of Present illness Narrative* Thom Dean [...] by mouth two times a day. Insulin Patterson, Disposable, (PEN NEEDLE) 32 gauge x 5/32 [...] and evaluation for treatment. documented in this encounterBrecksville [facility]04-07-2025 Telephone encounter Note * Telephone Encounter [...] Will review again next week- thanks! KB [facility]04-07-2025 Miscellaneous Notes* Telephone Encounter - Lalito Rocha DO - 12/28/2024 4:01 PM EDT Reviewed BG data- responded as follows: Good afternoon- I reviewed your BG data- I would recommend that you increase NPH slightly to 28 units at bedtime . Continue Humalog 5 units with breakfast, 10 units with lunch and 10 units with dinner (+ 8 units with higher carb meals)- arleht with * as you are doing if/when you take the extra insulin. Will review again next week- thanks! KB documented in this encounterBrecksville [facility]04-04-2025 Note Indication Evaluation of growth Diabetes [...] 10 oz EFW by: Hadlock (HC-AC-FL) Extended Geologic Technician 7.4 mm Extremities / Bony Struc [place] [...] RDMS, RVT Read By: Ly Nugent M.D.MATERNAL [id number] Progress note* Quick Notes - Alfred Arcos [...] DIP B/O Previous delivery affecting , antepartum ([facility]) Scheduled repeat Orders: URINE OB DIP B/O Supervision of high risk in third trimester ([facility]) Orders: URINE OB DIP B/O 28wk labs today. Plans Tdap NEXT visit. Insomnia - unisom sent and sleep habits reviewed. Reviewed PTL & FM precautions. Alfred Arcos MD [facility]04-04-2025 Miscellaneous Notes* Quick Notes - Alfred Arcos MD - 12/25/2024 10:54 AM EDT KJ - S: Val denies LOF, contractions or vaginal bleeding. She reports having trouble sleeping. Patient wants to try unisom. She reports good glucose control. O: 28w2d, see flow sheet SENSITIVE EXAM: Sensitive exam not performed. A/P: Assessment & Plan Pre-existing diabetes mellitus in in second trimester ([facility]) Managed by & on insulin. Orders: URINE OB DIP B/O Previous delivery affecting , antepartum ([facility]) Scheduled repeat Orders: URINE OB DIP B/O Supervision of high risk in third trimester ([facility]) Orders: URINE OB DIP B/O 28wk labs today. Plans Tdap NEXT visit. Insomnia - unisom sent and sleep habits reviewed. Reviewed PTL & FM precautions. Alfred Arcos MD documented in this encounterBrecksville [facility]04-04-2025 Instructions* Patient Instructions* Janice Pina MA - 12/25/2024 10:20 AM EDT SEQUENTIAL SCREENINGS The [facility] offers sequential screenings for women who [...] testing. It will require an appointment withour pharmacy technician instructor. This is not an ultrasound performed by [...] the above symptoms, contact our office at [phone] and ask to speak with anurse. After hours, you can call doctors registry at [phone] OR call [facility] at [phone] ask to have the doctor hospice consultant paged. If you consider this an emergency, dial 9-1-0 or go to your nearest emergency department. NEED HELP? Are you dealing with a violent or abusive relationship? Are you a victim of rape or sexual assult? Call [facility] ([place]) 24 hour Crisis Hotline: 349.553.6267 or 728-137-7956. MANUAL Your Guide to a Healthy manual is now on-line. Visit [email or web address] to download your free copy documented in this encounterBrecksville [facility]03-30-20[facility] Telephone encounter Note * Telephone Encounter [...] will review again next week- thanks! KB [facility]03-30-2025 Miscellaneous Notes* Telephone Encounter - Lalito [...] next week- thanks! KB documented in this encounterBrecksville [facility]03-25-2025 Telephone encounter Note * Telephone Encounter [...] Will review again next week- thanks! VIKRAM [facility]03-25-2025 Miscellaneous Notes* Telephone Encounter - Lalito [...] next week- thanks! VIKRAM documented in this encounterBrecksville Va [facility]03-18-2025 Telephone encounter Note * Telephone Encounter - Elena Parker RN - 12/08/2024 4:42 PM EDT Order signed and faxed. Elena Parker RN [facility]03-18-2025 Miscellaneous Notes* Telephone Encounter - Elena Parker RN - 12/08/2024 4:42 PM EDT Order signed and faxed. Elena Parker RN * Telephone Encounter - Elena Parker RN - 12/07/2024 8:45 AM EDT Breast pump order received from [employer]. To KJ to sign. Elena Parker RN documented in this encounterBrecksville Va / [facility]03-18-2025 NoteHNO ID: [id number] Author: ?, ?, ? Service: ? Author Type: ? Type: Progress Notes Filed: 12/08/2024 15:29 Note Text: Spoke with patient, scheduled 01/21/2025 @ 8:40 am (virtual appointment)[facility]03-17-2025 NoteHNO ID: [id number] Author: ?, ?, ? Service: ? Author Type: ? Type: Progress Notes Filed: 12/07/2024 10:14 Note Text: Left voicemail for patient to call [phone] to schedule 6 week virtual follow up with Dr. Rocha.[facility]03-17-2025 History of Present illness Narrative* Jacinta Oscar - 12/07/2024 10:14 AM EDT Left voicemail for patient to call [phone] to schedule 6 week virtual follow up [...] visit. Either the patient or their legal medical field representative has been informed of the risks [...] meals + scale. 5 Each 11 Insulin Patterson, Disposable, (PEN NEEDLE) 32 gauge x 5/32 [...] forward me your blood glucose data weekly ([email or web address] 3) adjust insulin slightly as follows: [...] which included preparing to see the patient, fruk-jo-pzvb patient care, completing clinical documentation, obtaining and/or reviewing separately obtained history, performing a medically appropriate examination, counseling and educating the pat ient/family/caregiver, and ordering medications, tests, or procedures. Lalito Rocha DO documented in this encounterBrecksville [facility]03-17-2025 Telephone encounter Note * Telephone Encounter - Elena Parker RN - 12/07/2024 8:45 AM EDT Breast pump order received from [employer]. To KJ to sign. Elena Parker RN [facility]03-17-2025 NoteHNO ID: [id number] Author: LALITO ROCHA DO Service: ? Author [...] visit. Either the patient or their legal medical field representative has been informed of the risks [...] meals + scale. 5 Each 11 Insulin Patterson, Disposable, (PEN NEEDLE) 32 gauge x 5/32 [...] or dry skin Eyes: (more content not included)...[facility]03-13-2025 Note Indication Evaluation of growth Diabetes mellitus, [...] 8 oz EFW by: Hadlock (HC-AC-FL) Extended Geologic Technician 7.6 mm Extremities / Bony Struc [place] [...] RDMS, RVT Read By: Ly Nugent M.D.MATERNAL [id number] Progress note* Quick Notes - Alfred Arcos MD - 12/03/2024 1:48 PM EDT KJ - S: Avl denies LOF, contractions or vaginal bleeding. O: [...] URINE OB DIP B/O Alfred Arcos MD [facility]03-13-2025 Miscellaneous Notes* Quick Notes - Alfred [...] gestation of Orders: URINE OB DIP B/O lAfred Arcos MD documented in this encounterBrecksville Va [facility]03-13-2025 Instructions* Patient Instructions* Yamila Azar MA - 12/03/2024 1:04 PM EDT SEQUENTIAL SCREENINGS The [facility] offers sequential screenings for women who [...] testing. It will require an appointment withour pharmacy technician instructor. This is not an ultrasound performed by [...] the above symptoms, contact our office at [phone] and ask to speak with anurse. After hours, you can call doctors registry at [phone] OR call [facility] at [phone] ask to have the doctor hospice consultant paged. If you consider this an emergency, dial 9--8 or go to your nearest emergency department. NEED HELP? Are you dealing with a violent or abusive relationship? Are you a victim of rape or sexual assult? Call [facility] ([place]) 24 hour Crisis Hotline: 956.213.9202 or 376-284-8698. MANUAL Your Guide to a Healthy manual is now on-line. Visit [email or web address] to download your free copy documented in this encounterBrecksville [facility]03-10-2025 Telephone encounter Note * Telephone Encounter [...] Will review again next week- thanks! KB [facility]03-10-2025 Miscellaneous Notes* Telephone Encounter - Lalito [...] next week- thanks! VIKRAM documented in this encounterBrecksville [facility]03-02-2025 Telephone encounter Note * Telephone Encounter [...] Will review again next week- thanks! VIKRAM [facility]03-02-2025 Miscellaneous Notes* Telephone Encounter - Lalito [...] next week- thanks! VIKRAM documented in this encounterBrecksville [facility]02-23-2025 Telephone encounter Note * Telephone Encounter [...] Will review again next week- thanks! KB [facility]02-23-2025 Miscellaneous Notes* Telephone Encounter - Lalito [...] next week- thanks! KB documented in this encounterBrecksville Va / [facility]02-18-2025 NoteHNO ID: [id number] Author: EDIE MAYER MD Service: ? Author Type: Physician Type: Progress Notes Filed: 11/11/2024 11:12 Note Text: Dr. Melissa Aguilera NAME: Val Ruiz CLINIC Number.: [id number] Date of : 2000 Date of Visit: [...] which included preparing to see the patient, lrtv-mi-bpwy patient care, completing clinical documentation, obtaining and/or reviewing separately obtained history, performing a medically appropriate examination, counseling and educating the patient/family/caregiver, ordering medications, tests, or procedures, communicating with other HCPs (not separately reported), independently interpreting results (not separately reported), and communicating results to the patient/family/caregiver. Sincerely, Dr. Edie Garciamanuel [facility]02-18-2025 History of Present illness Narrative* Edie Mayer MD - 11/10/2024 1:[address] Melissa Aguilera NAME: Val Ruiz CLINIC Number.: [id number] Date of : 2000 Date of Visit: [...] which included preparing to see the patient, ckbl-wi-hrsj patient care, completing clinical documentation, obtaining and/or reviewing separately obtained history, performing a medically appropriate examination, counseling and educating the pat ient/family/caregiver, ordering medications, tests, or procedures, communicating with other HCPs (not separately reported), independently interpreting results (not separately reported), and communicating results to the patient/family/caregiver. Sincerely, Dr. Edie Mayer documented in this encounterBrecksville [facility]02-18-2025 Telephone encounter Note * Telephone Encounter [...] review again next week- thanks! Dr Rocha [facility]02-18-2025 Miscellaneous Notes* Telephone Encounter - Lalito [...] week- thanks! Dr Rocha documented in this encounterBrecksville Va / [facility]02-17-2025 Telephone encounter Note * Telephone Encounter - Melissa Chavez RN - 11/09/2024 8:43 AM EST 2nd risk assessment form submitted 11/09/2024. Melissa Chavez RN [facility]02-17-2025 Miscellaneous Notes* Telephone Encounter - Melissa Chavez RN - 11/09/2024 8:43 AM EST 2nd risk assessment form submitted 11/09/2024. Melissa Chavez RN documented in this encounterBrecksville Va [facility]02-14-2025 Progress note* Quick Notes - Alfred [...] - plans repeat . Alfred Arcos MD [facility]02-14-2025 Miscellaneous Notes* Quick Notes - Alfred [...] . Alfred Arcos MD documented in this encounterBrecksville Va / [facility]02-14-2025 Instructions* Patient Instructions* Yamila Azar MA - 11/06/2024 10:40 AM EST SEQUENTIAL SCREENINGS The [facility] offers sequential screenings for women who [...] testing. It will require an appointment withour pharmacy technician instructor. This is not an ultrasound performed by [...] the above symptoms, contact our office at [phone] and ask to speak with anurse. After hours, you can call doctors registry at [phone] OR call [facility] at [phone] ask to have the doctor hospice consultant paged. If you consider this an emergency, dial 9-4-9 or go to your nearest emergency department. NEED HELP? Are you dealing with a violent or abusive relationship? Are you a victim of rape or sexual assult? Call [facility] ([place]) 24 hour Crisis Hotline: 378.851.5125 or 452-186-7729. MANUAL Your Guide to a Healthy manual is now on-line. Visit [email or web address] to download your free copy documented in this encounterB[facility] Telephone encounter Note * Telephone Encounter [...] Will review again next week- thanks! KB [facility]02-09-2025 Miscellaneous Notes* Telephone Encounter - Lalito [...] next week- thanks! KB documented in this encounterBrecksville [facility]02-05-2025 NoteHNO ID: [id number] Author: ?, ?, ? Service: ? Author Type: ? Type: Progress Notes Filed: 10/28/2024 09:38 Note Text: Left voicemail for patient to call [phone] to schedule 6 week virtual follow up with Dr. Rocha. Sent patient my chart message to call [phone] to schedule 6 week follow up virtual appointment with Dr. Rocha.[facility]02-04-2025 NoteHNO ID: [id number] Author: ?, ?, ? Service: ? Author Type: ? Type: Progress Notes Filed: 10/27/2024 11:59 Note Text: Left voicemail for patient to call [phone] to schedule 6 week virtual follow up with Dr. Rocha.[facility]02-03-2025 NoteHNO ID: [id number] Author: ?, ?, ? Service: ? Author Type: ? Type: Progress Notes Filed: 10/26/2024 12:28 Note Text: Left voicemail for patient to call [phone] to schedule 6 week virtual follow up with Dr. Rocha.[facility]02-01-2025 History of Present illness Narrative* Lalito Rocha, [...] visit. Either the patient or their legal medical field representative has been informed of the risks [...] forward me your blood glucose data weekly ([email or web address])- send by the end of this coming [...] which included preparing to see the patient, nfqo-fl-umol patient care, completing clinical documentation, obtaining and/or reviewing separately obtained history, performing a medically appropriate examination, counseling and educating the pat ient/family/caregiver, and ordering medications, tests, or procedures. Lalito Rocha DO documented in this encounterBrecksville [facility]02-01-2025 NoteHNO ID: [id number] Author: LALITO ROCHA DO Service: ? Author [...] visit. Either the patient or their legal medical field representative has been informed of the risks [...] turgor normal. N (more content not included)... [facility]01-28-2025 Telephone encounter Note* Telephone Encounter - Jacinta [...] Patient sent logs and Dr. Rocha email. [facility]01-28-2025 Miscellaneous Notes* Telephone Encounter - Jacinta [...] and Dr. Rocha email. documented in this encounterBrecksville [facility]01-28-2025 NoteHNO ID: [id number] Author: ARLETH GILLESPIE PA-C Service: ? Author Type: Physician Education Professor Type: Progress Notes Filed: 10/20/2024 09:35 Note Text: This note was created using CodinGameriter. Sly Ruiz is a 24 year old [...] J01.90 - AMOXICILLIN 875 MG TABLET DEBBI [facility]01-28-2025 History of Present illness Narrative* Arleth Gillespie PA-C - 10/20/2024 9:33 AM EST This note was created using CodinGameriter. Subjective Val Ruiz is a 24 year [...] TABLET Arleth Gillespie PA-C documented in this encounterBrecksville [facility]01-23-2025 Telephone encounter Note * Telephone Encounter [...] logs with instructions to email weekly to [email or web address] Patient advised that she signed a CARMENZA for her records to be sent to [facility]. First available appointment is 10/29/2024 Please advise for scheduling. Thank you [facility]01-23-2025 Miscellaneous Notes* Telephone Encounter - Jacinta [...] logs with instructions to email weekly to [email or web address] Patient advised that she signed a CARMENZA for her records to be sent to [facility]. First available appointment is 10/29/2024 Please advise for scheduling. Thank you documented in this encounterBrecksville [facility]01-21-2025 Telephone encounter Note * Telephone Encounter - Jacinta Oscar - 10/13/2024 10:06 AM EST Left voicemail for patient to call [phone] (direct line) to Dr. Rocha's office to schedule with Dr. Rocha. [facility]01-21-2025 Miscellaneous Notes* Telephone Encounter - Jacinta Oscar - 10/13/2024 10:06 AM EST Left voicemail for patient to call [phone] (direct line) to Dr. Rocha's office to schedule with Dr. Rocha. documented in this encounterBrecksville [facility]01-20-2025 Telephone encounter Note * Telephone Encounter - Jacinta Oscar - 10/12/2024 11:14 AM EST Left voicemail for patient to call [phone] to schedule appointment with Dr[address] Rocha. [facility]01-20-2025 Miscellaneous Notes* Telephone Encounter - Jacinta Oscar - 10/12/2024 11:14 AM EST Left voicemail for patient to call [phone] to schedule appointment with Dr. Rocha. documented in this encounterBrecksville [facility]01-17-2025 Note* Addendum Note - Melissa Aguilera MD - 10/09/2024 5:10 PM ESTAddended by: MELISSA AGUILERA on: 10/09/2024 05:10 PM Modules accepted: Orders [facility]01-17-2025 Miscellaneous Notes* Addendum Note - Melissa [...] ENDOCRINOLOGY Melissa Aguilera MD documented in this encounterBrecksville Va / [facility]01-17-2025 Progress note* Result Encounter Note - Gee Carlin MD - 10/09/2024 3:54 PM EST Anatomy ultrasound reviewed. No abnormalities identified. Follow up as clinically indicated. Pleaseplace copy in ob chart. Gee Carlin MD [facility] Work Phone: [phone]) 739-725601-17-2025 Miscellaneous Notes* Result Encounter Note - Gee Carlin MD - 10/09/2024 3:54 PM EST Anatomy ultrasound reviewed. No abnormalities identified. Follow up as clinically indicated. Pleaseplace copy in ob chart. Gee Carlin MD documented in this encounterBrecksville Va / [facility]01-17-2025 Progress note* Quick Notes - Melissa [...] - CONSULT TO ENDOCRINOLOGY Melissa Aguilera MD [facility]01-17-2025 Instructions* Patient Instructions* Janina Flores MA - 10/09/2024 1:43 PM EST SEQUENTIAL SCREENINGS The [facility] offers sequential screenings for women who [...] testing. It will require an appointment withour pharmacy technician instructor. This is not an ultrasound performed by [...] the above symptoms, contact our office at [phone] and ask to speak with anurse. After hours, you can call [employer] registry at [phone] OR call [facility] at [phone] ask to have the doctor hospice consultant paged. If you consider this an emergency, dial 9-1-1 or go to your nearest emergency department. NEED HELP? Are you dealing with a violent or abusive relationship? Are you a victim of rape or sexual assult? Call [facility] ([place]) 24 hour Crisis Hotline: 823.893.7860 or 000-754-4999. MANUAL Your Guide to a Healthy manual is now on-line. Visit [email or web address] to download your free copy documented in this encounterBrecksville [facility]12-31-2024 NoteHNO ID: [id number] Author: JANICE COLE RN Service: ? Author Type: Registered Nurse Type: Progress Notes Filed: 09/22/2024 13:24 Note Text: DIABETES CARE AND EDUCATION VISIT Location: [place] Type of visit: In person individual PATIENT'S [...] Ruiz DATE: September 22, 2024 TIME: 12:45 [facility]12-31-2024 History of Present illness Narrative* Janice Cole RN - 09/22/2024 12:45 PM EST DIABETES CARE AND EDUCATION VISIT Location: [place] Type of visit: In person individual PATIENT'S [...] 2024 TIME: 12:45 PM documented in this encounterBrecksville Va / [facility]12-27-2024 Telephone encounter Note * Telephone Encounter - Edel Rios RN - 09/18/2024 2:30 PM EST Patient notified of results, verbalizes understanding of instructions. Patient transferred to [facility] to make appointments. Edel Rios RN [facility]12-27-2024 Miscellaneous Notes* Telephone Encounter - Edel [...] appointment. Elba Khanna APRN.JASE documented in this encounterBrecksville Va / [facility]12-27-2024 Telephone encounter Note * Telephone Encounter - Elba Khanna APRN.CNP - 09/18/2024 2:05 PM EST Please notify patient: Early 1 hour >200, consistent with GDM. Supplies ordered. Nutrition consult and diabetes consult placed. Growth ultrasounds every 4 weeks at 28 weeks ordered. Patient to bring glucose logs to next appointment. Elba Khanna APRN.JASE [facility]12-26-2024 Telephone encounter Note* Telephone Encounter - Lisa Thompson RN - 09/17/2024 4:14 PM EST Pt notified of all details below. Transferred Pt to [facility] to get appointments scheduled. Pt denies questions/concerns. Lisa Thompson RN [facility]12-26-2024 Miscellaneous Notes* Telephone Encounter - Lisa [...] Kati Rolle APRN.CNM * Telephone Encounter - Lias Thompson RN - 09/15/2024 9:51 AM EST [...] scheduling. Kati Rolle APRN.CNM documented in this encounterBrecksville Va / [facility]12-24-2024 Telephone encounter Note * Telephone Encounter - Lisa Thompson RN - 09/15/2024 9:58 AM EST ----- Message from Kati Rolle APRN.CNM sent at 09/15/2024 9:46 AM EST ----- Reviewed. Needs anatomy US at 16 & 20 weeks. Kati Rolle APRN.CNM [facility]12-24-2024 Telephone encounter Note* Telephone Encounter - Lisa Thompson RN - 09/15/2024 9:51 AM EST Left message for patient to call office to notify of below information as well as her anemia reflexresults-Mychart message was sent to Pt by provider. Lisa Thompson RN [facility]12-24-2024 Telephone encounter Note* Telephone Encounter - Lisa Thompson RN - 09/15/2024 9:50 AM EST ----- Message from Kati Rolle APRN.CNM sent at 09/15/2024 9:40 AM EST ----- Hemoglobin A1C is elevated. It is recommended she complete an early 1 hour GCT test. Order placed. Please notify patient and assist with scheduling. Kati Rolle APRN.CNM [facility]12-20-2024 Progress note* Quick Notes - Melissa Aguilera [...] about c/s vs TOLAC. Previous delivery at [facility]. Induction for GDM. Does not feel she [...] ICD10: Z34.82 - OBSTETRIC ULTRASOUND WHI - [id number] PLUS Melissa Aguilera MD [facility]12-20-2024 Miscellaneous Notes* Quick Notes - Melissa [...] about c/s vs TOLAC. Previous delivery at [facility]. Induction for GDM. Does not feel she [...] ICD10: Z34.82 - OBSTETRIC ULTRASOUND WHI - [id number] PLUS Melissa Aguilera MD documented in this encounterBrecksville Va / [facility]12-20-2024 Instructions* Patient Instructions* Johanne Chapa LPN - 09/11/2024 11:03 AM EST SEQUENTIAL SCREENINGS The [facility] offers sequential screenings for women who [...] testing. It will require an appointment withour pharmacy technician instructor. This is not an ultrasound performed by [...] the above symptoms, contact our office at [phone] and ask to speak with anurse. After hours, you can call doctors registry at [phone] OR call [facility] at [phone] ask to have the doctor hospice consultant paged. If you consider this an emergency, dial 91-4 or go to your nearest emergency department. NEED HELP? Are you dealing with a violent or abusive relationship? Are you a victim of rape or sexual assult? Call [facility] ([place]) 24 hour Crisis Hotline: 434.782.1188 or 434-751-1432. MANUAL Your Guide to a Healthy manual is now on-line. Visit [email or web address] to download your free copy documented in this encounterBrecksville Va [facility]11-23-2024 NoteHNO ID: [id number] Author: JUNE CORONEL APRN.EKG MONITOR Service: ? Author Type: Nurse Practitioner Type: [...] UNIT-TRIMETHOPRIM 1 MG/ML EYE DROPS June Coronel APRN.[facility]ASEAden[facility]11-23-2024 History of Present illness Narrative* June Coronel [...] UNIT-TRIMETHOPRIM 1 MG/ML EYE DROPS June Coronel APRN.EKG MONITOR documented in this encounterBrecksville Va / [facility]11-18-2024 History of Present illness Narrative* Stephanie [...] PATIENT PRESENTS WITH AN IMPLANTABLE OR ATTACHED LOCOMOTIVE SWITCH OPERATOR: No RADIOLOGY DEPARTMENT: General X-ray: Exam(s) Completed: Chest X-Ray PERIPHERAL IV DATA: Not applicable SIGNED BY: RT Roshni(Vin) August 10, 2024 12:46 PM documented in this encounterBrecksville Va / [facility]11-18-2024 NoteHNO ID: [id number] Author: STEPHANIE KHOURY RT(R) Service: ? Author Type: Building Construction Foreman Type: Progress Notes Filed: 08/10/2024 12:47 Note [...] PATIENT PRESENTS WITH AN IMPLANTABLE OR ATTACHED LOCOMOTIVE SWITCH OPERATOR: No RADIOLOGY DEPARTMENT: General X-ray: Exam(s) Completed: Chest X-Ray PERIPHERAL IV DATA: Not applicable SIGNED BY: RT Roshni(Vin) August 10, 2024 12:46 [facility]11-18-2024 NoteHNO ID: [id number] Author: YONG MEDEROS APRN.EKG MONITOR Service: ? Author Type: Nurse Practitioner Type: [...] abnormality. Dictated by : MD Yong DOZIER APRN.[facility]11-18-2024 History of Present illness Narrative* Yong Mederos APRN.EKG MONITOR - 08/10/2024 12:29 PM EST Subjective HPI [...] abnormality. Dictated by : MD Yong DOZIER APRN.EKG MONITOR documented in this encounterBrecksville Va [facility]11-12-2024 Telephone encounter Note * Telephone Encounter - Chapito Ventura RN - 08/04/2024 8:51 AM EST 1st risk assessment form submitted 08/04/24 Chapito Ventura RN [facility]11-12-2024 Miscellaneous Notes* Telephone Encounter - Chapito Ventura RN - 08/04/2024 8:51 AM EST 1st risk assessment form submitted 08/04/24 Chapito Ventura RN documented in this encounterBrecksville Va / [facility]11-11-2024 History of Present illness Narrative* Yamila Azar MA - 08/03/2024 1:00 PM EST OB point of care ultrasound was performed. See imaging tab for details. Yamila Azar MA * Kati Rolle APRN.[facility] - 08/03/2024 12:[address] offered: Patient declines. INITIAL OB ASSESSMENT HPI: [...] myself has occurred to me. 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 As applicable, any other physician, advance practice provider, medical student, or other health professional student that will be observing or involved in the sensitive examination for educational or training purposes was discussed with the Patient or Authorized Garbage Man. The Patient or Authorized Garbage Man has agreed to proceed with the sensitive [...] Your guide to a health and the Sagger Maker. 2) Screening: Hemoglobin A1C: ordered Baby Aspirin: [...] prn. Kati Rolle APRN.CNM documented in this encounterBrecksville Va [facility]11-11-2024 NoteHNO ID: [id number] Author: YAMILA AZAR MA Service: ? Author Type: Global Climate Change Researcher Type: Progress Notes Filed: 08/03/2024 14:49 Note Text: OB point of care ultrasound was performed. See imaging tab for details. BAR[facility]Select [facility]-2024 NoteHNO ID: [id number] Author: KATI ROLLE APRN.CNM Service: ? Author Type: Inseamer Type: Progress Notes Filed: 08/03/2024 14:49 Note Text: Lane Attendant offered: Patient declines. INITIAL OB ASSESSMENT HPI: [...] myself has occurred to me. 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 [email or web address] documented in this encounterBrecksville Va / [facility]11-01-2024 NoteHNO ID: [id number] Author: ARLEEN ARCOS APRN.JASE Service: ? Author [...] Patient agreeable to treatment plan. Arleen Arcos APRN.[facility]11-01-2024 History of Present illness Narrative* Arleen Arcos APRN.[facility] - 07/24/2024 11:28 AM EDT CC: [...] plan. Arleen Arcos APRN.JASE documented in this encounterBrecksville Va / [facility]10-19-2024 Instructions* Patient Instructions* Alexia Enriquez - 07/11/2024 11:33 AM EDT ASSESSMENT/PLAN: 1. Missed period - ICD9: 626.4, ICD10: N92.6 (primary diagnosis) POSITIVE URINE HCG RESULT 2. Encounter for confirmation of test result with physical examination - ICD9: V72.40, ICD10: Z32.00 Discussed plan of care with patient. Patient advised to notify Dr. Sanders with [facility], the provider that prescribes her medications for depression and anxiety. Patient advised that she will need to wean off some of her medications due to risks during . Patient advised to schedule and appointment with an SHEET METAL WORKER MAINTENANCE provider. Patient asks about mild uterine cramping and if this is normal. Patient advised that some uterine cramping may be normal post uterine implantation, advised on signs and symptoms to monitor for and when to seek emergency care. All patient's questions answered. Patient agreeable with plan and verbalizes understanding. Alexia Enriquez, Student RESTRICTIVE PREPARATION OPERATOR documented in this encounterBrecksville Va / [facility]10-19-2024 NoteHNO ID: [id number] Author: SHU GOMEZ APRN.EKG MONITOR Service: ? Author Type: Nurse Practitioner Type: [...] RELIEF) 50 mcg/actuation nasal spray Use 1 [place] in each nostril once daily. (Patient not [...] Patient advised to notify Dr. Sanders with [facility], the provider that prescribes her medications for depression and anxiety. Patient advised that she will need to wean off some of her medications due to risks during . Patient advised to schedule and appointment with an SHEET METAL WORKER MAINTENANCE provider. Patient asks about mild uterine cramping and if this is normal. Patient advised that some uterine cramping may be normal post uterine implantation, advised on signs and symptoms to monitor for and when to seek emergency care. All patient's questions answered. Patient agreeable with plan and verbalizes understanding. Alexia Enriquez, Student RESTRICTIVE PREPARATION OPERATOR TEACHING PROVIDER (Physician/PA/CLEANER AND PRESSER) NOTE OF PERSONAL INVOLVEMENT IN CARE: I have personally seen and examined the patient and performed the medical decision-making components. I have reviewed the Advanced Practice Registered Nurse (CLEANER AND PRESSER) Student's documentation and verified the findings in the note as written. Any additions or changes are noted in bold/italics. Signature: Shu Gomez Date: 07/11/2024 Time: 12:19 [facility]10-19-2024 History of Present illness Narrative* Shu Gomez APRN.EKG MONITOR - 07/11/2024 11:26 AM EDT Subjective Val [...] RELIEF) 50 mcg/actuation nasal spray Use 1 [place] in each nostril once daily. (Patient not [...] Patient advised to notify Dr. Sanders with [facility], the provider that prescribes her medications for depression and anxiety. Patient advised that she will need to wean off some of her medications due to risks during . Patient advised to schedule and appointment with an SHEET METAL WORKER MAINTENANCE provider. Patient asks about mild uterine cramping and if this is normal. Patient advised that some uterine cramping may be normal post uterine implantation, advised on signs and symptoms to monitor for and when to seek emergency care. All patient's questions answered. Patient agreeable with plan and verbalizes understanding. Alexia Enriquez, Student RESTRICTIVE PREPARATION OPERATOR TEACHING PROVIDER (Physician/PA/CLEANER AND PRESSER) NOTE OF PERSONAL INVOLVEMENT IN CARE: I have personally seen and examined the patient and performed the medical decision-making components. I have reviewed the Advanced Practice Registered Nurse (CLEANER AND PRESSER) Student's documentation and verified the findings in the note as written. Any additions or changes are noted in bold/italics. Signature: Shu Gomez Date: 07/11/2024 Time: 12:19 PM documented in this encounterBrecksville Va [facility]09-27-2024 History of Present illness Narrative* Shari [...] PATIENT PRESENTS WITH AN IMPLANTABLE OR ATTACHED LOCOMOTIVE SWITCH OPERATOR: No RADIOLOGY DEPARTMENT: General X-ray: Exam(s) Completed: Chest X-Ray PERIPHERAL IV DATA: Not applicable SIGNED BY: JOHN Anaya) June 19, 2024 11:12 AM documented in this encounterBrecksville Va / [facility]09-27-2024 NoteHNO ID: [id number] Author: SHARI NOBLE RT(R) Service: Radiology Author [...] PATIENT PRESENTS WITH AN IMPLANTABLE OR ATTACHED LOCOMOTIVE SWITCH OPERATOR: No RADIOLOGY DEPARTMENT: General X-ray: Exam(s) Completed: Chest X-Ray PERIPHERAL IV DATA: Not applicable SIGNED BY: Shari Noble RT(R) June 19, 2024 11:12 [facility]09-27-2024 NoteHNO ID: [id number] Author: ARLEEN ARCOS APRN.EKG MONITOR Service: ? Author Type: Nurse Practitioner Type: [...] RELIEF) 50 mcg/actuation nasal spray Use 1 [place] in each nostril once daily. (Patient not [...] Unremarkable. IMPRESSION IMPRESSION: No acute radiographic abnormality. Associate Professor Of Violin: MEDHAT Transcribe Date/Time: Jun 19 2024 11:31A [...] Patient agreeable to treatment plan. Arleen Arcos APRN.[facility]09-27-2024 History of Present illness Narrative* Arleen Arcos APRN.[facility] - 06/19/2024 11:03 AM EDT CC: [...] RELIEF) 50 mcg/actuation nasal spray Use 1 [place] in each nostril once daily. (Patient not [...] Unremarkable. IMPRESSION IMPRESSION: No acute radiographic abnormality. Associate Professor Of Violin: MEDHAT Transcribe Date/Time: Jun 19 2024 11:31A [...] Patient agreeable to treatment plan. Arleen Arcos APRN.EKG MONITOR documented in this encounterBrecksville Va [facility]08-25-2024 NoteHNO ID: [id number] Author: ARIELLE ARIAS APRN.JASE Service: ? Author [...] Immunization History Administered Date(s) Administered COVID-19 vaccine ([employer] 02/22/2021 Current Medications: MUCUS RELIEF ER 600 [...] RELIEF) 50 mcg/actuation nasal spray Use 1 [place] in each nostril once daily. busPIRone (BUSPAR) [...] DOXYCYCLINE HYCLATE 100 MG CAPSULE Arielle Arias APRN.EKG MONITOR The above reflects my independent exam and review of the patient's medical record. I saw and examined the patient myself personally. Parts of the HPI, ROS, exam, impress (more content not included)...[id number] History of Present illness Narrative* Arielle Arias, JOSE.EKG MONITOR - 05/17/2024 2:21 PM EDT May 17, [...] Immunization History Administered Date(s) Administered COVID-19 vaccine ([employer] 02/22/2021 Current Medications: MUCUS RELIEF ER 600 [...] RELIEF) 50 mcg/actuation nasal spray Use 1 [place] in each nostril once daily. [employer]PIRone (BUSPAR) [...] minorgrammar or spelling errors. documented in this encounterBrecksville Va [facility]08-25-2024 Instructions* Patient Instructions* Arielle Arias APRN.CNP [...] on cough drops or hard candy. ?Take sikw-bfn-risaaft cough and cold medicines. ?Breath in warm, [...] better after 3 weeks documented [facility] this encounter[facility] NoteHNO ID: [id number] Author: RICCARDO LEVINE PA Service: ? Author Type: Physician Education Professor Type: Progress Notes Filed: 03/23/2024 13:29 Note [...] Immunization History Administered Date(s) Administered COVID-19 vaccine ([employer] 02/22/2021 Current Medications: albuterol HFA (PROVENTIL HFA, [...] RELIEF) 50 mcg/actuation nasal spray Use 1 [place] in each nostril once daily. busPIRone (BUSPAR) [...] to today's visit. Current (more content not included)...[id number] History of Present illness Narrative* Riccardo Levine PA - 03/23/2024 1:27 PM EDT March 23, 2024 HPI: Val Ruzi is a 23 year old female who [...] Immunization History Administered Date(s) Administered COVID-19 vaccine ([employer] 02/22/2021 Current Medications: albuterol HFA (PROVENTIL HFA, [...] RELIEF) 50 mcg/actuation nasal spray Use 1 [place] in each nostril once daily. busPIRone (BUSPAR) [...] Plan as outlined above. documented in this encounterB[facility] Instructions* Patient Instructions* Riccardo Levine PA [...] vomiting, or unusual drowsiness. documented in this encounterBrec[facility]08-[facility]-2022 NoteHNO ID: [id number] Author: Asif Del Valle APRN.EKG MONITOR Service: ? Author Type: Nurse Practitioner Type: [...] Denies nausea or vomiting. Has been taking kzhb-bry-pfvducb cold/sinus meds with no improvement of symptoms. [...] other questions or concerns. Asif Del Valle APRN.EKG MONITOR This note was generated with voice recognition software and may contain errors, including spelling, grammar, syntax and misrecognition of what was dictated, that are not fully corrected.[facility]08-09-2022 History of Present illness Narrative* Asif Del Valle APRN.EKG MONITOR - 05/01/2022 10:55 AM EDT HPI: Val Ruiz is a 21 year old female who presents with complaint of sinus pressure, chest congestion, and cough. Patient reports symptoms started about 1 week ago but beginning yesterday developed a fever with temperature up to 101. She denies any chest pain or shortness of breath. Denies nausea or vomiting. Has been taking fpqd-idx-mebhsza cold/sinus meds with no improvement of symptoms. [...] are not fully corrected. documented in this encounterBrec[facility]08-09-2022 Instructions* Patient Instructions* Asif Del Valle [...] PCP if symptoms continue documented in this encounterBrecksville [facility]01-26-[facility] History of Present illness Narrative* Asif [...] questions or concerns. Asif Del Valle CNP /[id number] [facility] File#: [id number] END OF DOCUMENT / CHANGE LOG FOLLOWS Last Edited By Audie. Signed By Asif Del Valle CNP #MOYCO Asif Del Valle CNP #MOYCO on 10/18/2021 11:08 ET on 10/18/2021 11:08 ET Revision Number - 2 ^^^ Verified/Reviewed by 10/18/21 1108 [facility] PATIENT NAME: VAL RUIZ [address] [place] MEDICAL REC #: [id number] [place] [address] [facility] RE[facility] STAT[facility] PHYSICIAN documented in this encounterBrecksville [facility]11-08-[facility] History of Present illness Narrative* Zoie [...] Patient agreeable, stable. All questions answered. JENI Garcia/[id number] [facility] File#: [id number] END OF DOCUMENT / CHANGE LOG FOLLOWS Last Edited By Elec. Signed By Zoie Potter #[email or web address] Zoie Potter #[email or web address] on 08/04/2021 14:37 ET on 08/04/2021 14:37 ET Revision Number - 2 ^^^ Verified/Reviewed by 08/04/21 [id number] [email or web address] [facility] PATIENT NAME: VAL RUIZ N [address] [place] MEDICAL REC #: [id number] [place] [address] [facility] STAT[facility] REPORT STAT[facility]ARE PHYSICIAN documented in this encounterBrecksville [facility]08-[facility] History of Present illness Narrative* Misty [...] 8 out of 10. She works at [employer]. No exposure to COVID that she knows [...] They acknowledged and understood. Misty López PA-C CP/[id number] [facility] File#: [id number] END OF DOCUMENT / CHANGE LOG FOLLOWS Last Edited By Elec. Signed By Misty López PAC #Misty Austin PAC #LENCHO on 04/28/2021 13:23 ET on 04/28/2021 13:23 ET Revision Number - 2 ^^^ Verified/Reviewed by 04/28/21 1323 LENCHO [facility] PATIENT NAME: VAL RUIZ [address] [place] MEDICAL REC #: [id number] [place] [address] [place] [facility]IC[facility] documented in this encounterBrecksville [facility]07-05-20[facility] History of Present illness Narrative* Asif Del Valle APRN.EKG MONITOR - 03/27/2021 4:17 PM EDT DATE OF [...] questions or concerns. Asif Del Valle CNP /[id number] [facility] File#: [id number] END OF DOCUMENT / CHANGE LOG FOLLOWS Last Edited By Elec. Signed By Asif Del Valle CNP #MOYCO Asif Del Valle CNP #MOYCO on 03/27/2021 16:39 ET on 03/27/2021 16:39 ET Revision Number - 2 ^^^ Verified/Reviewed by 03/27/21 1639 [facility] PATIENT NAME: VAL RUIZ [address] [place] MEDICAL REC #: [id number] [place] [address] [facility] STAT[facility] REPORT STATCARE PHYSICIAN documented in this encounterBrecksville [facility]06-30-[facility] History of Present illness Narrative* Asif Del Valle APRN.EKG MONITOR - 03/22/2021 8:27 PM EDT DATE OF SERVICE: 03/21/2021 HISTORY OF PRESENT ILLNESS: Patient is [facility] 20[facility], fever, chills, headache [...] questions or concerns. Asif Del Valle CNP /[id number] [facility] File#: [id number] END OF DOCUMENT / CHANGE LOG FOLLOWS Last Edited By Elec. Signed By Asif Del Valle CNP #MOYCO Asif Del Valle CNP #MOYCO on 03/26/2021 09:06 ET on 03/26/2021 09:06 ET Revision Number - 2 ^^^ Verified/Reviewed by 03/26/21 0906 [facility] PATIENT NAME: VAL RUIZ [address] [place] MEDICAL REC #: [id number] [place] [address] [place] [facility] REPORT STATCARE PHYSICIAN documented in this encounterBrecksville [facility]04-09-[facility] History of Present illness Narrative* Destini [...] time. The patient stable upon [facility] from [facility]. JENI Szymanski/[id number] [facility] File#: [id number] END OF DOCUMENT / CHANGE LOG FOLLOWS Last Edited By Elec. Signed By Destini Rogel PAC #[email or web address] Destini Rogel PAC #[email or web address] on 12/30/2020 10:53 ET on 12/30/2020 10:53 ET Revision Number - 2 ^^^ Verified/Reviewed by 12/30/20 1053 [email or web address] [facility] PATIENT NAME: VAL RUIZ [address] [place] MEDICAL REC #: [id number] [place] [address] [place] [facility] REPORT STATCARE PHYSICIAN [facility] Diagnosis Acute non-recurrent frontal sinusitis- Primary documented in this encounter [facility] note* Diagnosis Acute non-recurrent frontal sinusitis- Primary Acute otitis media, left Unspecified otitis media [facility]* Diagnosis Bronchitis- Primary Bronchitis, not specified as acute or chronic Acute non-recurrent pansinusitis Lower respiratory infection Other diseases of respiratory system, not elsewhere classified documented in this encounter [facility] note* Diagnosis Acute cough- Primary URI, acute Acute upper respiratory infections of unspecified site Acute cough [facility]* Diagnosis Acute cough documented in this encounter [facility] note* Diagnosis Missed period- Primary Irregular menstrual cycle Encounter for confirmation of test result with physical examination examination or test, unconfirmed [facility]* Diagnosis Rhinosinusitis- Primary Unspecified sinusitis (chronic) [facility]* Diagnosis with uncertain dates in first [...] diabetes mellitus (GDM) [facility]* Diagnosis URI, acute- Primary Acute upper respiratory infections of unspecified site Acute cough [facility]* Diagnosis Bacterial sinusitis- Primary Unspecified sinusitis (chronic) Bacterial conjunctivitis Other conjunctivitis documented [facility]* Diagnosis 13 weeks gestation of - Primary state, incidental Encounter for supervision of other normal in second trimester [facility]* Diagnosis Encounter for screening for malformation using ultrasound- Primary 13 weeks gestation of state, incidental [facility]* Diagnosis Elevated hemoglobin A1c- Primary Other abnormal blood chemistry [facility]* Diagnosis 14 weeks gestation of - Primary state, incidental [facility]* Diagnosis Elevated glucose tolerance test- Primary Impaired glucose tolerance test Diet controlled gestational diabetes mellitus (GDM) in second trimester documented [facility] Diagnosis Diet controlled gestational diabetes mellitus (GDM) in second trimester documented in [facility] Diagnosis Encounter for screening for malformation using ultrasound- Primary Encounter for anatomic survey 17 weeks gestation of state, incidental documented in this encounter [facility]* Diagnosis Elevated glucose tolerance test- Primary Impaired glucose tolerance test Encounter for supervision of other normal in second trimester 17 weeks gestation of state, incidental Pre-existing type 2 diabetes mellitus during in first trimester Pre-existing diabetes mellitus in in second trimester Diabetes mellitus, antepartum documented in this encounter [facility] note* Diagnosis Acute non-recurrent sinusitis, unspecified location- Primary documented in this encounter [facility] note* Diagnosis Insulin controlled gestational diabetes mellitus (GDM) in second trimester- Primary documented in this encounter [facility] note* Diagnosis Supervision of high risk in second trimester- Primary Unspecified high-risk Pre-existing diabetes mellitus in in second trimester Diabetes mellitus, antepartum 21 weeks gestation of state, incidental Previous delivery affecting , antepartum Previous delivery, antepartum condition or complication documented in this encounter [facility] note* Diagnosis Encounter for anatomic survey- Primary Encounter for supervision of other normal in second trimester 21 weeks gestation of state, incidental documented in this encounter [facility] note* Diagnosis Maternal care for (suspected) abnormality and damage, unspecified, fetus 1 [O35.9XX1]- Primary documented in this encounter [facility] note* Diagnosis Encounter for ultrasound to check [...] of state, incidental documented in this encounter [facility] note* Diagnosis Supervision of high risk in [...] Growth US today. documented in this encounter [facility] note* Diagnosis Supervision of high risk in second trimester- Primary Unspecified high-risk Pre-existing diabetes mellitus in in second trimester Diabetes mellitus, antepartum Previous delivery affecting , antepartum Previous delivery, antepartum condition or complication 25 weeks gestation of state, incidental Insulin controlled gestational diabetes mellitus (GDM) in third trimester- Primary documented in this encounter [facility] note* Diagnosis Supervision of high risk in second trimester (HCC)- Primary Unspecified high-risk Pre-existing diabetes mellitus in in second trimester ([facility]) Diabetes mellitus, antepartum Previous delivery affecting , antepartum ([facility]) Previous delivery, antepartum condition or complication 25 weeks gestation of ([facility]) state, incidental Pre-existing diabetes mellitus in in second trimester ([facility])- Primary Diabetes mellitus, antepartum Previous delivery affecting , antepartum ([facility]) Previous delivery, antepartum condition or complication Supervision of high risk in third trimester ([facility]) Unspecified high-risk * Assessment & Plan Note - Alfred Arcos MD - 12/25/2024 11:02 AM EDTAssociated Problem(s): Pre-existing diabetes mellitus in in second trimester ([facility]) Managed by & on insulin. Orders: URINE OB DIP B/O documented in this encounter [facility] note* Diagnosis Supervision of high risk in second trimester (HCC)- Primary Unspecified high-risk Pre-existing diabetes mellitus in in second trimester ([facility]) Diabetes mellitus, antepartum Previous delivery affecting , antepartum ([facility]) Previous delivery, antepartum condition or complication 25 weeks gestation of ([facility]) state, incidental Encounter for ultrasound to check growth ([facility])- Primary Encounter for routine screening for malformation using ultrasonics Pre-existing diabetes mellitus in in second trimester ([facility]) Diabetes mellitus, antepartum 28 weeks gestation of ([facility]) state, incidental Pre-existing diabetes mellitus in in second trimester ([facility])- Primary Diabetes mellitus, antepartum Previous delivery affecting , antepartum (HCC) Previous delivery, antepartum condition or complication Supervision of high risk in third trimester ([facility]) Unspecified high-risk documented in this encounter [facility] note* Diagnosis Supervision of high risk in second trimester ([facility])- Primary Unspecified high-risk Pre-existing diabetes mellitus in in second trimester ([facility]) Diabetes mellitus, antepartum Previous delivery affecting , antepartum ([facility]) Previous delivery, antepartum condition or complication 25 weeks gestation of ([facility]) state, incidental Pre-existing diabetes mellitus in in second trimester ([facility])- Primary Diabetes mellitus, antepartum Previous delivery affecting , antepartum ([facility]) Previous delivery, antepartum condition or complication Supervision of high risk in third trimester ([facility]) Unspecified high-risk Maternal iron deficiency anemia complicating , third trimester ([facility])- Primary documented in this encounter [facility] note* Diagnosis Supervision of high risk in second trimester ([facility])- Primary Unspecified high-risk Pre-existing diabetes mellitus in in second trimester ([facility]) Diabetes mellitus, antepartum Previous delivery affecting , antepartum ([facility]) Previous delivery, antepartum condition or complication 25 weeks gestation of ([facility]) state, incidental Pre-existing diabetes mellitus in in second trimester ([facility])- Primary Diabetes mellitus, antepartum Previous delivery affecting , antepartum ([facility]) Previous delivery, antepartum condition or complication Supervision of high risk in third trimester ([facility]) Unspecified high-risk 30 weeks gestation of ([facility])- Primary state, incidental Previous section Other postprocedural status Need for vaccination Need for prophylactic vaccination and inoculation against unspecified single disease Pre-existing diabetes mellitus in in second trimester ([facility]) Diabetes mellitus, antepartum Maternal iron deficiency anemia complicating , third trimester ([facility]) * Assessment & Plan Note - Alfred Arcos MD - 01/07/2025 2:22 PM EDTAssociated Problem(s): Pre-existing diabetes mellitus in in second trimester ([facility]) Well controlled on insulin. Follows with endo. * Assessment & Plan Note - Alfred Arcos MD - 01/07/2025 2:22 PM EDTAssociated Problem(s): Maternal iron deficiency anemia complicating , third trimester ([facility]) Needs to schedule IV iron. documented in this encounter [facility] note* Diagnosis Supervision of high risk in second trimester (HCC)- Primary Unspecified high-risk Pre-existing diabetes mellitus in in second trimester ([facility]) Diabetes mellitus, antepartum Previous delivery affecting , antepartum (HCC) Previous delivery, antepartum condition or complication 25 weeks gestation of ([facility]) state, incidental Pre-existing diabetes mellitus in in second trimester (HCC)- Primary Diabetes mellitus, antepartum Previous delivery affecting , antepartum (HCC) Previous delivery, antepartum condition or complication Supervision of high risk in third trimester ([facility]) Unspecified high-risk 30 weeks gestation of ([facility])- Primary state, incidental Previous section Other postprocedural status Need for vaccination Need for prophylactic vaccination and inoculation against unspecified single disease Pre-existing diabetes mellitus in in second trimester ([facility]) Diabetes mellitus, antepartum Maternal iron deficiency anemia complicating , third trimester ([facility]) Malignant neoplasm of prostate (HCC)- Primary Malignant neoplasm of prostate Maternal iron deficiency anemia complicating , third trimester ([facility]) documented in this encounter [facility] note* Diagnosis Supervision of high risk in second trimester (HCC)- Primary Unspecified high-risk Pre-existing diabetes mellitus in in second trimester (HCC) Diabetes mellitus, antepartum Previous delivery affecting , antepartum (HCC) Previous delivery, antepartum condition or complication 25 weeks gestation of ([facility]) state, incidental Pre-existing diabetes mellitus in in second trimester ([facility])- Primary Diabetes mellitus, antepartum Previous delivery affecting , antepartum (HCC) Previous delivery, antepartum condition or complication Supervision of high risk in third trimester ([facility]) Unspecified high-risk 30 weeks gestation of ([facility])- Primary state, incidental Previous section Other postprocedural status Need for vaccination Need for prophylactic vaccination and inoculation against unspecified single disease Pre-existing diabetes mellitus in in second trimester ([facility]) Diabetes mellitus, antepartum Maternal iron deficiency anemia complicating , third trimester (HCC) Maternal iron deficiency anemia complicating , third trimester ([facility])- Primary documented in this encounter [facility] note* Diagnosis Supervision of high risk in second trimester ([facility])- Primary Unspecified high-risk Pre-existing diabetes mellitus in in second trimester ([facility]) Diabetes mellitus, antepartum Previous delivery affecting , antepartum ([facility]) Previous delivery, antepartum condition or complication 25 weeks gestation of ([facility]) state, incidental Pre-existing diabetes mellitus in in second trimester ([facility])- Primary Diabetes mellitus, antepartum Previous delivery affecting , antepartum ([facility]) Previous delivery, antepartum condition or complication Supervision of high risk in third trimester ([facility]) Unspecified high-risk 30 weeks gestation of ([facility])- Primary state, incidental Previous section Other postprocedural status Need for vaccination Need for prophylactic vaccination and inoculation against unspecified single disease Pre-existing diabetes mellitus in in second trimester ([facility]) Diabetes mellitus, antepartum Maternal iron deficiency anemia complicating , third trimester ([facility]) Maternal iron deficiency anemia complicating , third trimester ([facility])- Primary documented in this encounter [facility] note* Diagnosis Supervision of high risk in second trimester ([facility])- Primary Unspecified high-risk Pre-existing diabetes mellitus in in second trimester ([facility]) Diabetes mellitus, antepartum Previous delivery affecting , antepartum ([facility]) Previous delivery, antepartum condition or complication 25 weeks gestation of ([facility]) state, incidental Pre-existing diabetes mellitus in in second trimester ([facility])- Primary Diabetes mellitus, antepartum Previous delivery affecting , antepartum ([facility]) Previous delivery, antepartum condition or complication Supervision of high risk in third trimester ([facility]) Unspecified high-risk 30 weeks gestation of ([facility])- Primary state, incidental Previous section Other postprocedural status Need for vaccination Need for prophylactic vaccination and inoculation against unspecified single disease Pre-existing diabetes mellitus in in second trimester ([facility]) Diabetes mellitus, antepartum Maternal iron deficiency anemia complicating , third trimester ([facility]) Insulin controlled gestational diabetes mellitus (GDM) in third trimester ([facility])- Primary documented in this encounter [facility] note* Diagnosis Supervision of high risk in second trimester (HCC)- Primary Unspecified high-risk Pre-existing diabetes mellitus in in second trimester ([facility]) Diabetes mellitus, antepartum Previous delivery affecting , antepartum (HCC) Previous delivery, antepartum condition or complication 25 weeks gestation of ([facility]) state, incidental Pre-existing diabetes mellitus in in second trimester ([facility])- Primary Diabetes mellitus, antepartum Previous delivery affecting , antepartum ([facility]) Previous delivery, antepartum condition or complication Supervision of high risk in third trimester ([facility]) Unspecified high-risk 30 weeks gestation of ([facility])- Primary state, incidental Previous section Other postprocedural status Need for vaccination Need for prophylactic vaccination and inoculation against unspecified single disease Pre-existing diabetes mellitus in in second trimester ([facility]) Diabetes mellitus, antepartum Maternal iron deficiency anemia complicating , third trimester ([facility]) 32 weeks gestation of ([facility])- Primary state, incidental Pre-existing diabetes mellitus in in second trimester ([facility]) Diabetes mellitus, antepartum Previous section Other postprocedural status Anemia complicating , third trimester ([facility]) [facility]* Diagnosis Supervision of high risk in second trimester ([facility])- Primary Unspecified high-risk Pre-existing diabetes mellitus in in second trimester ([facility]) Diabetes mellitus, antepartum Previous delivery affecting , antepartum ([facility]) Previous delivery, antepartum condition or complication 25 weeks gestation of ([facility]) state, incidental Pre-existing diabetes mellitus in in second trimester ([facility])- Primary Diabetes mellitus, antepartum Previous delivery affecting , antepartum ([facility]) Previous delivery, antepartum condition or complication Supervision of high risk in third trimester ([facility]) Unspecified high-risk 30 weeks gestation of ([facility])- Primary state, incidental Previous section Other postprocedural status Need for vaccination Need for prophylactic vaccination and inoculation against unspecified single disease Pre-existing diabetes mellitus in in second trimester ([facility]) Diabetes mellitus, antepartum Maternal iron deficiency anemia complicating , third trimester ([facility]) Encounter for ultrasound to check growth ([facility])- Primary Encounter for routine screening for malformation using ultrasonics Pre-existing diabetes mellitus in in second trimester ([facility]) Diabetes mellitus, antepartum 32 weeks gestation of ([facility]) state, incidental 32 weeks gestation of ([facility])- Primary state, incidental Pre-existing diabetes mellitus in in second trimester ([facility]) Diabetes mellitus, antepartum Previous section Other postprocedural status Anemia complicating , third trimester ([facility]) documented in this encounter [facility] note* Diagnosis Supervision of high risk in second trimester ([facility])- Primary Unspecified high-risk Pre-existing diabetes mellitus in in second trimester ([facility]) Diabetes mellitus, antepartum Previous delivery affecting , antepartum ([facility]) Previous delivery, antepartum condition or complication 25 weeks gestation of ([facility]) state, incidental Pre-existing diabetes mellitus in in second trimester ([facility])- Primary Diabetes mellitus, antepartum Previous delivery affecting , antepartum ([facility]) Previous delivery, antepartum condition or complication Supervision of high risk in third trimester ([facility]) Unspecified high-risk 30 weeks gestation of ([facility])- Primary state, incidental Previous section Other postprocedural status Need for vaccination Need for prophylactic vaccination and inoculation against unspecified single disease Pre-existing diabetes mellitus in in second trimester ([facility]) Diabetes mellitus, antepartum Maternal iron deficiency anemia complicating , third trimester ([facility]) 32 weeks gestation of ([facility])- Primary state, incidental Pre-existing diabetes mellitus in in second trimester ([facility]) Diabetes mellitus, antepartum Previous section Other postprocedural status Anemia complicating , third trimester ([facility]) Maternal iron deficiency anemia complicating , third trimester ([facility])- Primary documented in this encounter [facility] note* Diagnosis Supervision of high risk in second trimester ([facility])- Primary Unspecified high-risk Pre-existing diabetes mellitus in in second trimester ([facility]) Diabetes mellitus, antepartum Previous delivery affecting , antepartum ([facility]) Previous delivery, antepartum condition or complication 25 weeks gestation of ([facility]) state, incidental Pre-existing diabetes mellitus in in second trimester ([facility])- Primary Diabetes mellitus, antepartum Previous delivery affecting , antepartum ([facility]) Previous delivery, antepartum condition or complication Supervision of high risk in third trimester ([facility]) Unspecified high-risk 30 weeks gestation of ([facility])- Primary state, incidental Previous section Other postprocedural status Need for vaccination Need for prophylactic vaccination and inoculation against unspecified single disease Pre-existing diabetes mellitus in in second trimester ([facility]) Diabetes mellitus, antepartum Maternal iron deficiency anemia complicating , third trimester ([facility]) 32 weeks gestation of ([facility])- Primary state, incidental Pre-existing diabetes mellitus in in second trimester ([facility]) Diabetes mellitus, antepartum Previous section Other postprocedural status Anemia complicating , third trimester ([facility]) Pre-existing diabetes mellitus in in second trimester ([facility])- Primary Diabetes mellitus, antepartum 32 weeks gestation of ([facility]) state, incidental documented in this encounter [facility] note* Diagnosis Supervision of high risk in second trimester ([facility])- Primary Unspecified high-risk Pre-existing diabetes mellitus in in second trimester ([facility]) Diabetes mellitus, antepartum Previous delivery affecting , antepartum ([facility]) Previous delivery, antepartum condition or complication 25 weeks gestation of ([facility]) state, incidental Pre-existing diabetes mellitus in in second trimester ([facility])- Primary Diabetes mellitus, antepartum Previous delivery affecting , antepartum ([facility]) Previous delivery, antepartum condition or complication Supervision of high risk in third trimester ([facility]) Unspecified high-risk 30 weeks gestation of ([facility])- Primary state, incidental Previous section Other postprocedural status Need for vaccination Need for prophylactic vaccination and inoculation against unspecified single disease Pre-existing diabetes mellitus in in second trimester ([facility]) Diabetes mellitus, antepartum Maternal iron deficiency anemia complicating , third trimester ([facility]) 32 weeks gestation of ([facility])- Primary state, incidental Pre-existing diabetes mellitus in in second trimester ([facility]) Diabetes mellitus, antepartum Previous section Other postprocedural status Anemia complicating , third trimester ([facility]) Supervision of high risk in third trimester ([facility])- Primary Unspecified high-risk Previous section Other postprocedural status Anemia complicating , third trimester ([facility]) 33 weeks gestation of ([facility]) state, incidental Pre-existing diabetes mellitus in in third trimester ([facility]) Diabetes mellitus, antepartum documented in this encounter [facility] note* Diagnosis Supervision of high risk in second trimester ([facility])- Primary Unspecified high-risk Pre-existing diabetes mellitus in in second trimester ([facility]) Diabetes mellitus, antepartum Previous delivery affecting , antepartum ([facility]) Previous delivery, antepartum condition or complication 25 weeks gestation of ([facility]) state, incidental Pre-existing diabetes mellitus in in second trimester ([facility])- Primary Diabetes mellitus, antepartum Previous delivery affecting , antepartum ([facility]) Previous delivery, antepartum condition or complication Supervision of high risk in third trimester ([facility]) Unspecified high-risk 30 weeks gestation of ([facility])- Primary state, incidental Previous section Other postprocedural status Need for vaccination Need for prophylactic vaccination and inoculation against unspecified single disease Pre-existing diabetes mellitus in in second trimester ([facility]) Diabetes mellitus, antepartum Maternal iron deficiency anemia complicating , third trimester ([facility]) 32 weeks gestation of ([facility])- Primary state, incidental Pre-existing diabetes mellitus in in second trimester ([facility]) Diabetes mellitus, antepartum Previous section Other postprocedural status Anemia complicating , third trimester ([facility]) Pre-existing diabetes mellitus in in second trimester ([facility])- Primary Diabetes mellitus, antepartum 33 weeks gestation of ([facility]) state, incidental [facility] Diagnosis Supervision of high risk in second trimester ([facility])- Primary Unspecified high-risk Pre-existing diabetes mellitus in in second trimester ([facility]) Diabetes mellitus, antepartum Previous delivery affecting , antepartum ([facility]) Previous delivery, antepartum condition or complication 25 weeks gestation of ([facility]) state, incidental Pre-existing diabetes mellitus in in second trimester ([facility])- Primary Diabetes mellitus, antepartum Previous delivery affecting , antepartum ([facility]) Previous delivery, antepartum condition or complication Supervision of high risk in third trimester ([facility]) Unspecified high-risk 30 weeks gestation of ([facility])- Primary state, incidental Previous section Other postprocedural status Need for vaccination Need for prophylactic vaccination and inoculation against unspecified single disease Pre-existing diabetes mellitus in in second trimester ([facility]) Diabetes mellitus, antepartum Maternal iron deficiency anemia complicating , third trimester ([facility]) 32 weeks gestation of ([facility])- Primary state, incidental Pre-existing diabetes mellitus in in second trimester ([facility]) Diabetes mellitus, antepartum Previous section Other postprocedural status Anemia complicating , third trimester ([facility]) Supervision of high risk in third trimester ([facility])- Primary Unspecified high-risk Previous section Other postprocedural status Pre-existing diabetes mellitus in in third trimester ([facility]) Diabetes mellitus, antepartum 34 weeks gestation of ([facility]) state, incidental Headache in , antepartum, third trimester ([facility]) documented in this encounter [facility] note* Diagnosis Supervision of high risk in second trimester ([facility])- Primary Unspecified high-risk Pre-existing diabetes mellitus in in second trimester ([facility]) Diabetes mellitus, antepartum Previous delivery affecting , antepartum ([facility]) Previous delivery, antepartum condition or complication 25 weeks gestation of ([facility]) state, incidental Pre-existing diabetes mellitus in in second trimester ([facility])- Primary Diabetes mellitus, antepartum Previous delivery affecting , antepartum ([facility]) Previous delivery, antepartum condition or complication Supervision of high risk in third trimester ([facility]) Unspecified high-risk 30 weeks gestation of ([facility])- Primary state, incidental Previous section Other postprocedural status Need for vaccination Need for prophylactic vaccination and inoculation against unspecified single disease Pre-existing diabetes mellitus in in second trimester ([facility]) Diabetes mellitus, antepartum Maternal iron deficiency anemia complicating , third trimester ([facility]) 32 weeks gestation of ([facility])- Primary state, incidental Pre-existing diabetes mellitus in in second trimester ([facility]) Diabetes mellitus, antepartum Previous section Other postprocedural status Anemia complicating , third trimester ([facility]) Pre-existing diabetes mellitus in in second trimester ([facility])- Primary Diabetes mellitus, antepartum 34 weeks gestation of ([facility]) state, incidental documented in this encounter [facility] note* Diagnosis Supervision of high risk in second trimester ([facility])- Primary Unspecified high-risk Pre-existing diabetes mellitus in in second trimester ([facility]) Diabetes mellitus, antepartum Previous delivery affecting , antepartum ([facility]) Previous delivery, antepartum condition or complication 25 weeks gestation of ([facility]) state, incidental Pre-existing diabetes mellitus in in second trimester ([facility])- Primary Diabetes mellitus, antepartum Previous delivery affecting , antepartum ([facility]) Previous delivery, antepartum condition or complication Supervision of high risk in third trimester ([facility]) Unspecified high-risk 30 weeks gestation of ([facility])- Primary state, incidental Previous section Other postprocedural status Need for vaccination Need for prophylactic vaccination and inoculation against unspecified single disease Pre-existing diabetes mellitus in in second trimester ([facility]) Diabetes mellitus, antepartum Maternal iron deficiency anemia complicating , third trimester ([facility]) 32 weeks gestation of ([facility])- Primary state, incidental Pre-existing diabetes mellitus in in second trimester ([facility]) Diabetes mellitus, antepartum Previous section Other postprocedural status Anemia complicating , third trimester ([facility]) Supervision of high risk in third trimester ([facility])- Primary Unspecified high-risk Pre-existing diabetes mellitus in in third trimester ([facility]) Diabetes mellitus, antepartum Previous section Other postprocedural status Anemia complicating , third trimester ([facility]) Obesity during ([facility]) Pre-existing diabetes mellitus in in second trimester ([facility])- Primary Diabetes mellitus, antepartum [facility] Diagnosis Supervision of high risk in second trimester ([facility])- Primary Unspecified high-risk Pre-existing diabetes mellitus in in second trimester ([facility]) Diabetes mellitus, antepartum Previous delivery affecting , antepartum ([facility]) Previous delivery, antepartum condition or complication 25 weeks gestation of ([facility]) state, incidental Pre-existing diabetes mellitus in in second trimester ([facility])- Primary Diabetes mellitus, antepartum Previous delivery affecting , antepartum ([facility]) Previous delivery, antepartum condition or complication Supervision of high risk in third trimester ([facility]) Unspecified high-risk 30 weeks gestation of ([facility])- Primary state, incidental Previous section Other postprocedural status Need for vaccination Need for prophylactic vaccination and inoculation against unspecified single disease Pre-existing diabetes mellitus in in second trimester ([facility]) Diabetes mellitus, antepartum Maternal iron deficiency anemia complicating , third trimester ([facility]) 32 weeks gestation of ([facility])- Primary state, incidental Pre-existing diabetes mellitus in in second trimester ([facility]) Diabetes mellitus, antepartum Previous section Other postprocedural status Anemia complicating , third trimester ([facility]) Supervision of high risk in third trimester ([facility])- Primary Unspecified high-risk Pre-existing diabetes mellitus in in third trimester ([facility]) Diabetes mellitus, antepartum Previous section Other postprocedural status Anemia complicating , third trimester ([facility]) Obesity during ([facility]) * Assessment & Plan Note - Mayra Frey MD - 02/19/2025 1:07 PM EDT Associated Problem(s): Obesity during ([facility]) Growth US pending today NST [facility] Diagnosis Supervision of high risk in second trimester ([facility])- Primary Unspecified high-risk Pre-existing diabetes mellitus in in second trimester ([facility]) Diabetes mellitus, antepartum Previous delivery affecting , antepartum ([facility]) Previous delivery, antepartum condition or complication 25 weeks gestation of ([facility]) state, incidental Pre-existing diabetes mellitus in in second trimester ([facility])- Primary Diabetes mellitus, antepartum Previous delivery affecting , antepartum ([facility]) Previous delivery, antepartum condition or complication Supervision of high risk in third trimester ([facility]) Unspecified high-risk 30 weeks gestation of ([facility])- Primary state, incidental Previous section Other postprocedural status Need for vaccination Need for prophylactic vaccination and inoculation against unspecified single disease Pre-existing diabetes mellitus in in second trimester ([facility]) Diabetes mellitus, antepartum Maternal iron deficiency anemia complicating , third trimester ([facility]) 32 weeks gestation of ([facility])- Primary state, incidental Pre-existing diabetes mellitus in in second trimester ([facility]) Diabetes mellitus, antepartum Previous section Other postprocedural status Anemia complicating , third trimester ([facility]) Supervision of high risk in third trimester ([facility])- Primary Unspecified high-risk Pre-existing diabetes mellitus in in third trimester ([facility]) Diabetes mellitus, antepartum Previous section Other postprocedural status Anemia complicating , third trimester ([facility]) Obesity during ([facility]) Insulin controlled gestational diabetes mellitus (GDM) in third trimester ([facility])- Primary [facility] Diagnosis Supervision of high risk in second trimester ([facility])- Primary Unspecified high-risk Pre-existing diabetes mellitus in in second trimester ([facility]) Diabetes mellitus, antepartum Previous delivery affecting , antepartum ([facility]) Previous delivery, antepartum condition or complication 25 weeks gestation of ([facility]) state, incidental Pre-existing diabetes mellitus in in second trimester ([facility])- Primary Diabetes mellitus, antepartum Previous delivery affecting , antepartum ([facility]) Previous delivery, antepartum condition or complication Supervision of high risk in third trimester ([facility]) Unspecified high-risk 30 weeks gestation of ([facility])- Primary state, incidental Previous section Other postprocedural status Need for vaccination Need for prophylactic vaccination and inoculation against unspecified single disease Pre-existing diabetes mellitus in in second trimester ([facility]) Diabetes mellitus, antepartum Maternal iron deficiency anemia complicating , third trimester ([facility]) 32 weeks gestation of ([facility])- Primary state, incidental Pre-existing diabetes mellitus in in second trimester ([facility]) Diabetes mellitus, antepartum Previous section Other postprocedural status Anemia complicating , third trimester ([facility]) Supervision of high risk in third trimester ([facility])- Primary Unspecified high-risk Pre-existing diabetes mellitus in in third trimester ([facility]) Diabetes mellitus, antepartum Previous section Other postprocedural status Anemia complicating , third trimester ([facility]) Obesity during ([facility]) Supervision of high risk in third trimester ([facility])- Primary Unspecified high-risk 37 weeks gestation of ([facility]) state, incidental Pre-existing diabetes mellitus in in third trimester ([facility]) Diabetes mellitus, antepartum Previous section Other postprocedural status [facility] Diagnosis Supervision of high risk in second trimester ([facility])- Primary Unspecified high-risk Pre-existing diabetes mellitus in in second trimester ([facility]) Diabetes mellitus, antepartum Previous delivery affecting , antepartum ([facility]) Previous delivery, antepartum condition or complication 25 weeks gestation of ([facility]) state, incidental Pre-existing diabetes mellitus in in second trimester ([facility])- Primary Diabetes mellitus, antepartum Previous delivery affecting , antepartum ([facility]) Previous delivery, antepartum condition or complication Supervision of high risk in third trimester ([facility]) Unspecified high-risk 30 weeks gestation of ([facility])- Primary state, incidental Previous section Other postprocedural status Need for vaccination Need for prophylactic vaccination and inoculation against unspecified single disease Pre-existing diabetes mellitus in in second trimester ([facility]) Diabetes mellitus, antepartum Maternal iron deficiency anemia complicating , third trimester ([facility]) 32 weeks gestation of ([facility])- Primary state, incidental Pre-existing diabetes mellitus in in second trimester ([facility]) Diabetes mellitus, antepartum Previous section Other postprocedural status Anemia complicating , third trimester ([facility]) Supervision of high risk in third trimester ([facility])- Primary Unspecified high-risk Pre-existing diabetes mellitus in in third trimester ([facility]) Diabetes mellitus, antepartum Previous section Other postprocedural status Anemia complicating , third trimester ([facility]) Obesity during ([facility]) Supervision of high risk in third trimester ([facility])- Primary Unspecified high-risk Pre-existing diabetes mellitus in in third trimester ([facility]) Diabetes mellitus, antepartum Previous section Other postprocedural status Anemia complicating , third trimester ([facility]) Obesity during ([facility]) Rh negative state in antepartum period ([facility]) Rhesus isoimmunization affecting management of mother, antepartum condition 37 weeks gestation of ([facility]) state, incidental documented in this encounter [facility] for referral (narrative)* Diagnostic Procedure Only (Routine) - Authorized Specialty Diagnoses / Procedures Referred By Jaiden tamayo Referred To Contact [facility] Diagnoses Less than 8 weeks gestation of Procedures NUCHAL TRANSLUCENCY WHI US NUCHAL TRANSLUCENCY 1ST GESTATION Kati Rolle APRN.CNM [address] [place] [address] [address] Referral ID Status Reason Start Date Expiration Date Visits Requested Visits Authorized [id number] Authorized Auto-Generat ed Referral 08/03/2025 1 1 [facility] for referral (narrative)* Diagnostic Procedure Only (Routine) - Authorized Specialty Diagnoses / Procedures Referred By Contac t Referred To Contact [facility] Diagnoses Encounter for supervision of other normal in second trimester Procedures OBSTETRIC ULTRASOUND WHI US PREG UTERUS AFTER 1ST TRIMEST GESTATION Melissa Aguilera MD [address] [place] [address] [facility] [address] [place] [address] Referral ID Status Reason Start Date Expiration Date Visits Requested Visits Authorized [id number] Authorized Auto-Generat ed Referral 09/11/2025 1 1 [facility] for referral (narrative)* Diagnostic Procedure Only (Routine) - Authorized Specialty Diagnoses / Procedures Referred By Contac t Referred To Contact [facility] Diagnoses 14 weeks gestation of Procedures OBSTETRIC ULTRASOUND WHI US PREG UTERUS AFTER 1ST TRIMEST GESTATION Kati Rolle APRN.CNM [address] [place] [address] [facility] [address] [place] [address] Referral ID Status Reason Start Date Expiration Date Visits Requested Visits Authorized [id number] Authorized Auto-Generat ed Referral 09/17/2025 1 1 [facility] for referral (narrative)* Outpatient Procedure (Routine) - New Request Specialty Diagnoses / Procedures Referred By Contac t Referred To Contact [facility] Diagnoses Pre-existing type 2 diabetes mellitus during in first trimester Pre-existing diabetes mellitus in in second trimester Procedures ECHO Melissa Aguilera MD [address] [place] [address] [facility] [address] [place] [address] Referral ID Status Reason Start Date Expiration Date Visits Requested Visits Authorized [id number] New Request Auto-Generat ed Referral 10/09/2024 10/09/2025 1 1 * Consult, Test, Treat (Routine) - Authorized Specialty Diagnoses / Procedures Referred By Contac t Referred To Contact Endocrinology Diagnoses 17 weeks gestation of Pre-existing type 2 diabetes mellitus during in first trimester Procedures CONSULT TO ENDOCRINOLOGY OFFICE/OUTPATIENT [facility] 60 MINUTES Melissa Aguilera MD [address] [place] [place] [address] Lalito Rocha, [address] [place] [address] Referral ID Status Reason Start Date Expiration Date Visits Requested Visits Authorized [id number] Authorized PCP Requested Referral 10/09/2024 10/09/2025 1 1 [facility] (narrative)No reason for referral information availableWKing's D[facility] [place] Work Phone: Summary Purpose Family History No [...] THERAPY MEDICAL NUTRITION ASSMT&IVNTJ INDIV EACH 15 CO Elba Khanna, JOSE.EKG MONITOR [address] [place] [address] Referral ID Status Reason Start Date Expiration Date Visits Requested Visits Authorized [id number] Authorized PCP Requested Referral 4 09/18/2025 1 4 Specialty Diagnoses / Procedures Referred By Contac t Referred To Contact Diagnoses Diet controlled gestational diabetes mellitus (GDM) in second trimester Procedures CONSULT TO DIABETES EDUCATION DSME MEDICAL NUTRITION ASSMT&IVNTJ INDIV EACH 15 CO MEDICAL NUTRITION ASSMT&IVNTJ INDIV EACH 15 CO MEDICAL NUTRITION ASSMT&IVNTJ INDIV EACH 15 CO MEDICAL NUTRITION ASSMT&IVNTJ INDIV EACH 15 CO Elba Khanna APRN.EKG MONITOR [address] [place] [address] Referral ID Status Reason Start Date Expiration Date Visits Requested Visits Authorized [id number] Authorized PCP Requested Referral 4 09/18/2025 1 1 Specialty Diagnoses / Procedures Referred By Contac t Referred To Contact [facility] Diagnoses Diet controlled gestational diabetes mellitus (GDM) in second trimester Procedures OBSTETRIC ULTRASOUND WHI US PREG UTERUS AFTER 1ST TRIMEST GESTATION Elba Khanna APRN.EKG MONITOR [address] [place] [address] [facility] [address] [place] [address] Referral ID Status Reason Start Date Expiration Date Visits Requested Visits Authorized [id number] Authorized Auto-Generat ed Referral 4 09/18/2025 5 [...] section and content) DATE CREATED AUTHOR 02/25/2020 [facility] DATE CREATED AUTHOR AUTHOR'S ORGANIZ ATION 11/12/2021 [facility] DATE CREATED AUTHOR AUTHOR'S ORGANIZ ATION 05/02/2022 [facility] DATE CREATED AUTHOR AUTHOR'S ORGANIZ ATION 05/18/2024 [facility] DATE CREATED AUTHOR AUTHOR'S ORGANIZ ATION 07/17/2024 [facility] DATE CREATED AUTHOR AUTHOR'S ORGANIZ ATION 11/12/2024 [facility] DATE CREATED AUTHOR AUTHOR'S ORGANIZ ATION 03/02/2025 [facility] DATE CREATED AUTHOR AUTHOR'S ORGANIZ ATION 03/03/2025 [facility] Source Comments (unrecognize d section and content) In the event this informatio n is protected by the Federal Confidentiality of Alcohol and Drug Abuse Patient Records regulations: The Federal rules restrict any use of the information to criminally investigate or prosecute any alcohol or drug abuse patient.[facility]In the event this information is protected by the Federal Confidentiality of Alcohol and Drug Abuse Patient Records regulations: The Federal rules restrict any use of the information to criminally investigate or prosecute any alcohol or drug abuse patient.[facility] HospitalIn the event this information is protected by the Federal Confidentiality of Alcohol and Drug Abuse Patient Records regulations: The Federal rules restrict any use of the information to criminally investigate or prosecute any alcohol or drug abuse patient.[facility] the event this information is protected by the Federal Confidentiality of Alcohol and Drug Abuse Patient Records regulations: The Federal rules restrict any use of the information to criminally investigate or prosecute any alcohol or drug abuse patient.[facility]In the event this information is protected by the Federal Confidentiality of Alcohol and Drug Abuse Patient Records regulations: The Federal rules restrict any use of the information to criminally investigate or prosecute any alcohol or drug abuse patient.[facility] HospitalIn the event this information is protected [...] or prosecute any alcohol or drug abuse patient.[facility] HospitalIn the event this information is protected by the Federal Confidentiality of Alcohol and Drug Abuse Patient Records regulations: The Federal rules restrict any use of the information to criminally investigate or prosecute any alcohol or drug abuse patient.[facility] HospitalIn the event this information is protected by the Federal Confidentiality of Alcohol and Drug Abuse Patient Records regulations: The Federal rules restrict any use of the information to criminally investigate or prosecute any alcohol or drug abuse patient.[facility] HospitalIn the event this information is protected by the Federal Confidentiality of Alcohol and Drug Abuse Patient Records regulations: The Federal rules restrict any use of the information to criminally investigate or prosecute any alcohol or drug abuse patient.[facility] HospitalIn the event this information is protected by the Federal Confidentiality of Alcohol and Drug Abuse Patient Records regulations: The Federal rules restrict any use of the information to criminally investigate or prosecute any alcohol or drug abuse patient.[facility] HospitalIn the event this information is protected by the Federal Confidentiality of Alcohol and Drug Abuse Patient Records regulations: The Federal rules restrict any use of the information to criminally investigate or prosecute any alcohol or drug abuse patient.[facility] HospitalIn the event this information is protected by the Federal Confidentiality of Alcohol and Drug Abuse Patient Records regulations: The Federal rules restrict any use of the information to criminally investigate or prosecute any alcohol or drug abuse patient.[facility] HospitalIn the event this information is protected by the Federal Confidentiality of Alcohol and Drug Abuse Patient Records regulations: The Federal rules restrict any use of the information to criminally investigate or prosecute any alcohol or drug abuse patient.[facility] HospitalIn the event this information is protected by the Federal Confidentiality of Alcohol and Drug Abuse Patient Records regulations: The Federal rules restrict any use of the information to criminally investigate or prosecute any alcohol or drug abuse patient.[facility] HospitalIn the event this information is protected by the Federal Confidentiality of Alcohol and Drug Abuse Patient Records regulations: The Federal rules restrict any use of the information to criminally investigate or prosecute any alcohol or drug abuse patient.[facility] HospitalIn the event this information is protected by the Federal Confidentiality of Alcohol and Drug Abuse Patient Records regulations: The Federal rules restrict any use of the information to criminally investigate or prosecute any alcohol or drug abuse patient.[facility] HospitalIn the event this information is protected by the Federal Confidentiality of Alcohol and Drug Abuse Patient Records regulations: The Federal rules restrict any use of the information to criminally investigate or prosecute any alcohol or drug abuse patient.[facility] HospitalIn the event this information is protected by the Federal Confidentiality of Alcohol and Drug Abuse Patient Records regulations: The Federal rules restrict any use of the information to criminally investigate or prosecute any alcohol or drug abuse patient.[facility] HospitalIn the event this information is protected by the Federal Confidentiality of Alcohol and Drug Abuse Patient Records regulations: The Federal rules restrict any use of the information to criminally investigate or prosecute any alcohol or drug abuse patient.[facility] HospitalIn the event this information is protected by the Federal Confidentiality of Alcohol and Drug Abuse Patient Records regulations: The Federal rules restrict any use of the information to criminally investigate or prosecute any alcohol or drug abuse patient.[facility] HospitalIn the event this information is protected by the Federal Confidentiality of Alcohol and Drug Abuse Patient Records regulations: The Federal rules restrict any use of the information to criminally investigate or prosecute any alcohol or drug abuse patient.[facility] HospitalIn the event this information is protected by the Federal Confidentiality of Alcohol and Drug Abuse Patient Records regulations: The Federal rules restrict any use of the information to criminally investigate or prosecute any alcohol or drug abuse patient.[facility] HospitalIn the event this information is protected by the Federal Confidentiality of Alcohol and Drug Abuse Patient Records regulations: The Federal rules restrict any use of the information to criminally investigate or prosecute any alcohol or drug abuse patient.[facility] HospitalIn the event this information is protected by the Federal Confidentiality of Alcohol and Drug Abuse Patient Records regulations: The Federal rules restrict any use of the information to criminally investigate or prosecute any alcohol or drug abuse patient.[facility] HospitalIn the event this information is protected by the Federal Confidentiality of Alcohol and Drug Abuse Patient Records regulations: The Federal rules restrict any use of the information to criminally investigate or prosecute any alcohol or drug abuse patient.[facility] HospitalIn the event this information is protected by the Federal Confidentiality of Alcohol and Drug Abuse Patient Records regulations: The Federal rules restrict any use of the information to criminally investigate or prosecute any alcohol or drug abuse patient.[facility] HospitalIn the event this information is protected by the Federal Confidentiality of Alcohol and Drug Abuse Patient Records regulations: The Federal rules restrict any use of the information to criminally investigate or prosecute any alcohol or drug abuse patient.[facility] HospitalIn the event this information is protected by the Federal Confidentiality of Alcohol and Drug Abuse Patient Records regulations: The Federal rules restrict any use of the information to criminally investigate or prosecute any alcohol or drug abuse patient.[facility] HospitalIn the event this information is protected by the Federal Confidentiality of Alcohol and Drug Abuse Patient Records regulations: The Federal rules restrict any use of the information to criminally investigate or prosecute any alcohol or drug abuse patient.[facility] HospitalIn the event this information is protected by the Federal Confidentiality of Alcohol and Drug Abuse Patient Records regulations: The Federal rules restrict any use of the information to criminally investigate or prosecute any alcohol or drug abuse patient.[facility] HospitalIn the event this information is protected by the Federal Confidentiality of Alcohol and Drug Abuse Patient Records regulations: The Federal rules restrict any use of the information to criminally investigate or prosecute any alcohol or drug abuse patient.[facility] HospitalIn the event this information is protected by the Federal Confidentiality of Alcohol and Drug Abuse Patient Records regulations: The Federal rules restrict any use of the information to criminally investigate or prosecute any alcohol or drug abuse patient.[facility] HospitalIn the event this information is protected by the Federal Confidentiality of Alcohol and Drug Abuse Patient Records regulations: The Federal rules restrict any use of the information to criminally investigate or prosecute any alcohol or drug abuse patient.[facility] HospitalIn the event this information is protected by the Federal Confidentiality of Alcohol and Drug Abuse Patient Records regulations: The Federal rules restrict any use of the information to criminally investigate or prosecute any alcohol or drug abuse patient.[facility]In the event this information is protected by the Federal Confidentiality of Alcohol and Drug Abuse Patient Records regulations: The Federal rules restrict any use of the information to criminally investigate or prosecute any alcohol or drug abuse patient.[facility]In the event this information is protected by the Federal Confidentiality of Alcohol and Drug Abuse Patient Records regulations: The Federal rules restrict any use of the information to criminally investigate or prosecute any alcohol or drug abuse patient.[facility]In the event this information is protected by the Federal Confidentiality of Alcohol and Drug Abuse Patient Records regulations: The Federal rules restrict any use of the information to criminally investigate or prosecute any alcohol or drug abuse patient.[facility]In the event this information is protected by the Federal Confidentiality of Alcohol and Drug Abuse Patient Records regulations: The Federal rules restrict any use of the information to criminally investigate or prosecute any alcohol or drug abuse patient.[facility]In the event this information is protected by the Federal Confidentiality of Alcohol and Drug Abuse Patient Records regulations: The Federal rules restrict any use of the information to criminally investigate or prosecute any alcohol or drug abuse patient.[facility]In the event this information is protected by the Federal Confidentiality of Alcohol and Drug Abuse Patient Records regulations: The Federal rules restrict any use of the information to criminally investigate or prosecute any alcohol or drug abuse patient.[facility]In the event this information is protected by the Federal Confidentiality of Alcohol and Drug Abuse Patient Records regulations: The Federal rules restrict any use of the information to criminally investigate or prosecute any alcohol or drug abuse patient.[facility]In the event this information is protected by the Federal Confidentiality of Alcohol and Drug Abuse Patient Records regulations: The Federal rules restrict any use of the information to criminally investigate or prosecute any alcohol or drug abuse patient.[facility]In the event this information is protected by the Federal Confidentiality of Alcohol and Drug Abuse Patient Records regulations: The Federal rules restrict any use of the information to criminally investigate or prosecute any alcohol or drug abuse patient.[facility]In the event this information is protected by the Federal Confidentiality of Alcohol and Drug Abuse Patient Records regulations: The Federal rules restrict any use of the information to criminally investigate or prosecute any alcohol or drug abuse patient.[facility]In the event this information is protected by the Federal Confidentiality of Alcohol and Drug Abuse Patient Records regulations: The Federal rules restrict any use of the information to criminally investigate or prosecute any alcohol or drug abuse patient.[facility]In the event this information is protected by the Federal Confidentiality of Alcohol and Drug Abuse Patient Records regulations: The Federal rules restrict any use of the information to criminally investigate or prosecute any alcohol or drug abuse patient.[facility]In the event this information is protected by the Federal Confidentiality of Alcohol and Drug Abuse Patient Records regulations: The Federal rules restrict any use of the information to criminally investigate or prosecute any alcohol or drug abuse patient.[facility]In the event this information is protected by the Federal Confidentiality of Alcohol and Drug Abuse Patient Records regulations: The Federal rules restrict any use of the information to criminally investigate or prosecute any alcohol or drug abuse patient.[facility]In the event this information is protected by the Federal Confidentiality of Alcohol and Drug Abuse Patient Records regulations: The Federal rules restrict any use of the information to criminally investigate or prosecute any alcohol or drug abuse patient.[facility]In the event this information is protected by the Federal Confidentiality of Alcohol and Drug Abuse Patient Records regulations: The Federal rules restrict any use of the information to criminally investigate or prosecute any alcohol or drug abuse patient.[facility]In the event this information is protected by the Federal Confidentiality of Alcohol and Drug Abuse Patient Records regulations: The Federal rules restrict any use of the information to criminally investigate or prosecute any alcohol or drug abuse patient.[facility]In the event this information is protected by the Federal Confidentiality of Alcohol and Drug Abuse Patient Records regulations: The Federal rules restrict any use of the information to criminally investigate or prosecute any alcohol or drug abuse patient.[facility] the event this information is protected by the Federal Confidentiality of Alcohol and Drug Abuse Patient Records regulations: The Federal rules restrict any use of the information to criminally investigate or prosecute any alcohol or drug abuse patient.[facility]In the event this information is protected by the Federal Confidentiality of Alcohol and Drug Abuse Patient Records regulations: The Federal rules restrict any use of the information to criminally investigate or prosecute any alcohol or drug abuse patient.[facility]In the event this information is protected [...] or prosecute any alcohol or drug abuse patient.[facility] HospitalIn the event this information is protected by the Federal Confidentiality of Alcohol and Drug Abuse Patient Records regulations: The Federal rules restrict any use of the information to criminally investigate or prosecute any alcohol or drug abuse patient.[facility]In the event this information is protected by the Federal Confidentiality of Alcohol and Drug Abuse Patient Records regulations: The Federal rules restrict any use of the information to criminally investigate or prosecute any alcohol or drug abuse patient.[facility]In the event this information is protected by the Federal Confidentiality of Alcohol and Drug Abuse Patient Records regulations: The Federal rules restrict any use of the information to criminally investigate or prosecute any alcohol or drug abuse patient.[facility]In the event this information is protected by the Federal Confidentiality of Alcohol and Drug Abuse Patient Records regulations: The Federal rules restrict any use of the information to criminally investigate or prosecute any alcohol or drug abuse patient.[facility]In the event this information is protected by the Federal Confidentiality of Alcohol and Drug Abuse Patient Records regulations: The Federal rules restrict any use of the information to criminally investigate or prosecute any alcohol or drug abuse patient.[facility]In the event this information is protected by the Federal Confidentiality of Alcohol and Drug Abuse Patient Records regulations: The Federal rules restrict any use of the information to criminally investigate or prosecute any alcohol or drug abuse patient.[facility]In the event this information is protected by the Federal Confidentiality of Alcohol and Drug Abuse Patient Records regulations: The Federal rules restrict any use of the information to criminally investigate or prosecute any alcohol or drug abuse patient.[facility]In the event this information is protected by the Federal Confidentiality of Alcohol and Drug Abuse Patient Records regulations: The Federal rules restrict any use of the information to criminally investigate or prosecute any alcohol or drug abuse patient.[facility]In the event this information is protected by the Federal Confidentiality of Alcohol and Drug Abuse Patient Records regulations: The Federal rules restrict any use of the information to criminally investigate or prosecute any alcohol or drug abuse patient.[facility]In the event this information is protected by the Federal Confidentiality of Alcohol and Drug Abuse Patient Records regulations: The Federal rules restrict any use of the information to criminally investigate or prosecute any alcohol or drug abuse patient.[facility]In the event this information is protected by the Federal Confidentiality of Alcohol and Drug Abuse Patient Records regulations: The Federal rules restrict any use of the information to criminally investigate or prosecute any alcohol or drug abuse patient.[facility]In the event this information is protected by the Federal Confidentiality of Alcohol and Drug Abuse Patient Records regulations: The Federal rules restrict any use of the information to criminally investigate or prosecute any alcohol or drug abuse patient.[facility]In the event this information is protected by the Federal Confidentiality of Alcohol and Drug Abuse Patient Records regulations: The Federal rules restrict any use of the information to criminally investigate or prosecute any alcohol or drug abuse patient.[facility]In the event this information is protected by the Federal Confidentiality of Alcohol and Drug Abuse Patient Records regulations: The Federal rules restrict any use of the information to criminally investigate or prosecute any alcohol or drug abuse patient.[facility]In the event this information is protected by the Federal Confidentiality of Alcohol and Drug Abuse Patient Records regulations: The Federal rules restrict any use of the information to criminally investigate or prosecute any alcohol or drug abuse patient.[facility]In the event this information is protected by the Federal Confidentiality of Alcohol and Drug Abuse Patient Records regulations: The Federal rules restrict any use of the information to criminally investigate or prosecute any alcohol or drug abuse patient.[facility]In the event this information is protected by the Federal Confidentiality of Alcohol and Drug Abuse Patient Records regulations: The Federal rules restrict any use of the information to criminally investigate or prosecute any alcohol or drug abuse patient.[facility]In the event this information is protected by the Federal Confidentiality of Alcohol and Drug Abuse Patient Records regulations: The Federal rules restrict any use of the information to criminally investigate or prosecute any alcohol or drug abuse patient.[facility]In the event this information is protected by the Federal Confidentiality of Alcohol and Drug Abuse Patient Records regulations: The Federal rules restrict any use of the information to criminally investigate or prosecute any alcohol or drug abuse patient.[facility]In the event this information is protected by the Federal Confidentiality of Alcohol and Drug Abuse Patient Records regulations: The Federal rules restrict any use of the information to criminally investigate or prosecute any alcohol or drug abuse patient.[facility] HospitalIn the event this information is protected by the Federal Confidentiality of Alcohol and Drug Abuse Patient Records regulations: The Federal rules restrict any use of the information to criminally investigate or prosecute any alcohol or drug abuse patient.[facility] the event this information is protected by the Federal Confidentiality of Alcohol and Drug Abuse Patient Records regulations: The Federal rules restrict any use of the information to criminally investigate or prosecute any alcohol or drug abuse patient.[facility] the event this information is protected by the Federal Confidentiality of Alcohol and Drug Abuse Patient Records regulations: The Federal rules restrict any use of the information to criminally investigate or prosecute any alcohol or drug abuse patient.[facility] the event this information is protected by the Federal Confidentiality of Alcohol and Drug Abuse Patient Records regulations: The Federal rules restrict any use of the information to criminally investigate or prosecute any alcohol or drug abuse patient.[facility] the event this information is protected by the Federal Confidentiality of Alcohol and Drug Abuse Patient Records regulations: The Federal rules restrict any use of the information to criminally investigate or prosecute any alcohol or drug abuse patient.[facility] the event this information is protected by the Federal Confidentiality of Alcohol and Drug Abuse Patient Records regulations: The Federal rules restrict any use of the information to criminally investigate or prosecute any alcohol or drug abuse patient.[facility] Reason for Visit (unrecogniz ed section [...] Referred By Contac t Referred To Contact [facility] Diagnoses Less than 8 weeks gestation of Procedures NUCHAL TRANSLUCENCY WHI US NUCHAL TRANSLUCENCY 1ST GESTATION Kati Rolle, CLEANER AND PRESSER.CNM [address] [place] [address] [facility] [address] [place] [address] Referral ID Status Reason Start Date Expiration Date V isits Requested Visits Authorized [id number] Closed Auto-Generate d Referral 08/03/2024 08/03/2025 1 1 Reason Comments Results Reason Comments Gestational Diabetes Specialty Diagnoses / Procedures Referred By Contac t Referred To Contact Diagnoses Diet controlled gestational diabetes mellitus (GDM) in second trimester Procedures CONSULT TO DIABETES EDUCATION DSME MEDICAL NUTRITION ASSMT&IVNTJ INDIV EACH 15 CO MEDICAL NUTRITION ASSMT&IVNTJ INDIV EACH 15 CO MEDICAL NUTRITION ASSMT&IVNTJ INDIV EACH 15 CO MEDICAL NUTRITION ASSMT&IVNTJ INDIV EACH 15 CO Elba Khanna, CLEANER AND PRESSER.EKG MONITOR [address] [place] [address] Referral ID Status Reason Start Date Expiration Date V isits Requested Visits Authorized [id number] Closed PCP Requested Referral 09/18/2024 09/18/2025 1 1 Specialty Diagnoses / Procedures Referred By Contac t Referred To Contact [facility] Diagnoses 14 weeks gestation of Procedures OBSTETRIC ULTRASOUND WHI US PREG UTERUS AFTER 1ST TRIMEST GESTATION Kati Rolle APRN.CNM [address] [place] [address] [address] Referral ID Status Reason Start Date Expiration Date V isits Requested Visits Authorized [id number] Closed Auto-Generate d Referral 09/17/2024 09/17/2025 1 1 Reason Onset Date Comments Care 10/09/2024 Reason Comments Sinus Problem sinus pressure, drai nage, cough and headache x 9 days Reason Comments Gestational Diabetes Reason Comments Blood Sugar Reading Reason Onset Date Comments Care 11/06/2024 Specialty Diagnoses / Procedures Referred By Contac t Referred To Contact 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 Diagnoses Diet controlled gestational diabetes mellitus (GDM) in second trimester Procedures OBSTETRIC ULTRASOUND WHI US PREG UTERUS AFTER 1ST TRIMEST GESTATION Elba Khanna APRN.EKG MONITOR [address] [place] [address] Phone: tel: fax: [address] [phone] Referral ID Status Reason Start Date Expiration Date V isits Requested Visits Authorized [id number] Closed Auto-Generate d Referral 09/18/2024 09/18/2025 5 1 Reason Onset Date Comments Care 12/03/2024 Reason Comments Breast Pump Reason Onset Date Comments Care 12/25/2024 Specialty Diagnoses / Procedures Referred By Contac t Referred To Contact [facility] Diagnoses Diet controlled gestational diabetes mellitus (GDM) in second trimester (HCC) Procedures OBSTETRIC ULTRASOUND WHI US PREG UTERUS AFTER 1ST TRIMEST GESTATION Elba Khanna, JOSE.EKG MONITOR [address] [place] [address] Phone: tel: fax:[phone] [address] Reason Comments Blood Management Reason Onset Date Comments Care 01/07/2025 Reason Comments Non-Chemotherapy Treatment Specialty Diagnoses / Procedures Referred By Contac t Referred To Contact Diagnoses Maternal iron deficiency anemia complicating , third trimester (HCC) Procedures IRON SUCROSE INJECTION PER 1 MG lAfred Arcos MD [address] [place] [address] Phone: tel: fax: Alfred Arcos MD [address] [place] [address] Phone: tel: fax:[phone] Referral ID Status Reason Start Date Expiration Date V isits Requested Visits Authorized [id number] Authorized 12/30/2024 09/22/2025 99 99 Reason Comments Follow Up Gestational Diabetes Reason Onset Date Comments Care 01/22/2025 Specialty Diagnoses / Procedures Referred By Contac t Referred To Contact [facility] Diagnoses Pre-existing diabetes mellitus in in second trimester ([facility]) Procedures OBSTETRIC ULTRASOUND WHI US PREG UTERUS AFTER 1ST TRIMEST GESTATION Alfred Arcos MD [address] [address] Phone: tel: fax:[phone] [facility] [address] [place] [address] Referral ID Status Reason Start Date Expiration Date V isits Requested Visits Authorized [id number] Closed Auto-Generate d Referral 01/22/2025 01/22/2026 6 1 Reason Onset Date Comments Care 01/28/2025 Reason Onset Date Comments Care 02/04/2025 Reason Onset Date Comments Care 02/19/2025 Reason Comments Patient Update Reason Onset Date Comments Care 02/26/2025 Reason Comments Possible SROM. C/S 03/05 Reason Onset Date Comments Care 03/02/2025 Care Teams (unrecognized sec tion and content) Ichthyology Teacher Relationship Specialty Start Date End Date Carla Correia PA-C [address] [place] [address] PCP - General Family Medicine 07/24/24 Ichthyology Teacher Relationship Specialty Start Date End Date Carla Correia PA-C [address] [place] [address] PCP - General Family Medicine 07/24/24 Ichthyology Teacher Relationship Specialty Start Date End Date Carla Correia PA-C [address] [place] [address] PCP - General Family Medicine 07/24/24 Ichthyology Teacher Relationship Specialty Start Date End Date Carla Correia PA-C [address] [place] [address] PCP - General Family Medicine 07/24/24 Ichthyology Teacher Relationship Specialty Start Date End Date Carla Correia PA-C [address] [place] [address] PCP - General Family Medicine 07/24/24 Ichthyology Teacher Relationship Specialty Start Date End Date Carla Correia PA-C [address] [place] [address] PCP - General Family Medicine 07/24/24 Ichthyology Teacher Relationship Specialty Start Date End Date Carla Correia PA-C [address] [place] [address] PCP - General Family Medicine 07/24/24 Ichthyology Teacher Relationship Specialty Start Date End Date Carla Correia PA-C [address] [place] [address] PCP - General Family Medicine 07/24/24 Ichthyology Teacher Relationship Specialty Start Date End Date Carla Correia PA-C [address] [place] [address] PCP - General Family Medicine 07/24/24 Ichthyology Teacher Relationship Specialty Start Date End Date Carla Correia PA-C [address] [place] [address] PCP - General Family Medicine 07/24/24 Ichthyology Teacher Relationship Specialty Start Date End Date Carla Correia PA-C [address] [place] [address] PCP - General Family Medicine 07/24/24 Ichthyology Teacher Relationship Specialty Start Date End Date Carla Correia PA-C [address] [place] [address] PCP - General Family Medicine 07/24/24 Ichthyology Teacher Relationship Specialty Start Date End Date Carla Correia PA-C [address] [place] [address] PCP - General Family Medicine 07/24/24 Ichthyology Teacher Relationship Specialty Start Date End Date Carla Correia PA-C [address] [place] [address] PCP - General Family Medicine 07/24/24 Ichthyology Teacher Relationship Specialty Start Date End Date Carla Correia PA-C [address] [place] [address] PCP - General Family Medicine 07/24/24 Ichthyology Teacher Relationship Specialty Start Date End Date Carla Correia PA-C [address] [place] [address] PCP - General Family Medicine 07/24/24 Ichthyology Teacher Relationship Specialty Start Date End Date Carla Correia PA-C [address] [place] [address] PCP - General Family Medicine 07/24/24 Ichthyology Teacher Relationship Specialty Start Date End Date Carla Correia PA-C [address] [place] [address] PCP - General Family Medicine 07/24/24 Ichthyology Teacher Relationship Specialty Start Date End Date Carla Correia PA-C [address] [place] [address] PCP - General Family Medicine 07/24/24 Ichthyology Teacher Relationship Specialty Start Date End Date Carla Correia PA-C [address] [place] [address] PCP - General Family Medicine 07/24/24 Ichthyology Teacher Relationship Specialty Start Date End Date Carla Correia PA-C [address] [place] [address] PCP - General Family Medicine 07/24/24 Ichthyology Teacher Relationship Specialty Start Date End Date Carla Correia PA-C [address] [place] [address] PCP - General Family Medicine 07/24/24 Ichthyology Teacher Relationship Specialty Start Date End Date Carla Correia PA-C [address] [place] [address] PCP - General Family Medicine 07/24/24 Ichthyology Teacher Relationship Specialty Start Date End Date Carla Correia PA-C [address] [place] [address] PCP - General Family Medicine 07/24/24 Ichthyology Teacher Relationship Specialty Start Date End Date Carla Correia PA-C [address] [place] [address] PCP - General Family Medicine 07/24/24 Ichthyology Teacher Relationship Specialty Start Date End Date Carla Correia PA-C [address] [place] [address] PCP - General Family Medicine 07/24/24 Ichthyology Teacher Relationship Specialty Start Date End Date Carla Correia PA-C [address] [place] [address] PCP - General Family Medicine 07/24/24 Ichthyology Teacher Relationship Specialty Start Date End Date Carla Correia PA-C [address] [place] [address] PCP - General Family Medicine 07/24/24 Ichthyology Teacher Relationship Specialty Start Date End Date Carla Correia PA-C [address] [place] [address] PCP - General Family Medicine 07/24/24 Ichthyology Teacher Relationship Specialty Start Date End Date Carla Correia PA-C [address] [place] [address] PCP - General Family Medicine 07/24/24 Ichthyology Teacher Relationship Specialty Start Date End Date Carla Correia PA-C [address] [place] [address] PCP - General Family Medicine 07/24/24 Ichthyology Teacher Relationship Specialty Start Date End Date Carla Correia PA-C [address] [place] [address] PCP - General Family Medicine 07/24/24 Ichthyology Teacher Relationship Specialty Start Date End Date Carla Correia PA-C [address] [place] [address] PCP - General Family Medicine 07/24/24 Ichthyology Teacher Relationship Specialty Start Date End Date Carla Correia PA-C [address] [place] [address] PCP - General Family Medicine 07/24/24 Ichthyology Teacher Relationship Specialty Start Date End Date Carla Correia PA-C [address] [place] [address] PCP - General Family Medicine 07/24/24 Ichthyology Teacher Relationship Specialty Start Date End Date Carla Correia PA-C [address] [place] [address] PCP - General Family Medicine 07/24/24 Ichthyology Teacher Relationship Specialty Start Date End Date Carla Correia PA-C [address] [place] [address] PCP - General Family Medicine 07/24/24 Ichthyology Teacher Relationship Specialty Start Date End Date Carla Correia PA-C [address] [place] [address] PCP - General Family Medicine 07/24/24 Ichthyology Teacher Relationship Specialty Start Date End Date Carla Correia PA-C [address] [place] [address] PCP - General Family Medicine 07/24/24 Ichthyology Teacher Relationship Specialty Start Date End Date Carla Correia PA-C [address] [place] [address] PCP - General Family Medicine 07/24/24 Ichthyology Teacher Relationship Specialty Start Date End Date Carla Correia PA-C [address] [place] [address] PCP - General Family Medicine 07/24/24 Ichthyology Teacher Relationship Specialty Start Date End Date Carla Correia PA-C [address] [place] [address] PCP - General Family Medicine 07/24/24 Ichthyology Teacher Relationship Specialty Start Date End Date Carla Correia PA-C [address] [place] [address] PCP - General Family Medicine 07/24/24 Ichthyology Teacher Relationship Specialty Start Date End Date Carla Correia PA-C [address] [place] [address] PCP - General Family Medicine 07/24/24 Team [...] March 01, 2025 End: March 01, 2025 Ichthyology Teacher Relationship Specialty Start Date End Date Carla Correia PA-C [address] [facility] [address] [place] [address] PCP - General Family Medicine 07/24/24 Goals [...] BE BASED ON THE PRIMARY CLINICAL RECORDS. [facility] [employer] provides no warranty or guarantee of the accuracy or completeness of information in this document.
[2025-03-05 06:38] LABS: Syphilis Antibodies Nonreactive (Nonreactive)
[2025-03-05] MEDS: Acetaminophen 500 MG Tablet 1000 MG PO ×3 (06:53→18:28)
[2025-03-05] MEDS: Sodium Citrate/Citric Acid 30 ML UDC PO (06:53)
--- NOTE | 2025-03-05 07:16 | OB.TRI.HP_ITS ---
HPI - General General Date of Admission: 03/05/25 Date of Service: 03/01/25 HPI Narrative KATIE RUIZ, is a 24 F @ 37. 5 weeks who presents who presents for r/o labor [facility] Medical History Asthma Depression Anxiety Gestational diabetes Home Medications ?Medication ?Instructions ?Recorded ?Last Taken ?Type aspirin 81 mg tablet,delayed 81 mg PO DAILY 02/24/25 03/02/25 06:00 History release 81 mg citalopram 20 mg tablet 20 mg PO DAILY anxiety 02/2403/04/25 21:00 History 20 mg albuterol sulfate 90 mcg/actuation 2 puff inhalation Q 4H PRN PRN 03/01/25 Unknown History aerosol inhaler asthma fluticasone propionate 50 2 spray intranasal DAILY chintan al 03/01/25 Unknown History mcg/actuation nasal drainage spray,suspension insulin NPH isoph U-100 human 100 35 unit subcut QHS g estational 03/05/25 03/04/25 21:00 History unit/mL (3 mL) subcutaneous pen diabetes 35 units (Humulin N NPH U-100 Insulin KwikPen) insulin lispro 100 unit/mL 1 sliding scale dose subcut 03/05/25 03/04/25 18:00 History subcutaneous pen .COMPLEX gestational diabete s 14 units Allergy/AdvReac Type Severity Reaction Status Date / Time cephalexin (From Keflex) Allergy Mild Rash Verified 03/05/25 05:56 Surgical History (Updated 03/05/25 @ 06:06 by Sheryl Manzano) History of surgery History of surgery Previous section Social History Smoking Status: Never smoker History Elective abortions Hx Para 1 Spontaneous abortions Hx # Term Pregnancies Ectopic pregnancies Hx # Pregnancies Multiple births # of living children NST FHR Rate Baby A Baseline: 130 Variability:: Moderate Accelerations:: 15 x 15 Decelerations:: None NST Reactive:: Yes FHR Category:: Category I Uterine Activity:: irregular Assessment & Plan (1) False labor: PLAN: Plan @ 37.5 weeks- r/o labor, membranes intact rom plus negative dc home
[2025-03-05 07:31] LABS: Bedside Glucose 96 mg/dL (74-106)
[2025-03-05] MEDS: Clindamycin 900 MG/50 ML BAG 75 MG IV (07:40)
--- NOTE | 2025-03-05 08:10 | EX.PCM.OBRPT ---
Operative Report (OB) Details Procedure Type: low transverse Date of Procedure: 03/05/25 Procedure Start Time: 07:41 Time of Delivery: 07:45 Pre-Operative Diagnosis: Repeat Elective Post-Operative Diagnosis: Same as Pre-operative diagnosis (Preexisting DM, Repeat cs, 38 weeks gestation, obesity in ) Classification: Scheduled Type of Anesthesia: Spinal Special Medications: hemoblast Antibiotic Given: Clindamycin 600mg IV x1 and Gentamicin 1.5mg/kg IV x1 Drain: Quinones to straight drain Estimated Blood Loss: 750 Fluids Replaced: 1000 Findings Description of surgery: After informed consent was obtained the patient was taken the operating room she was given spinal anesthesia. She was then placed in the supine position. She was prepped and draped in the normal sterile fashion. Anesthesia was found to be adequate. At this time a Pfannenstiel skin incision was made with a knife was carried down to the underlying layer of the fascia. The fascial incision was then extended laterally using curved Nicholson scissor. Attention was then turned to the superior aspect of the fascial edge was grasped with 2 straight [place] clamps tented up and the rectus muscle dissected off sharply using curved Nicholson scissor. Attention was then turned to the inferior aspect where again [place] clamps were placed in the rectus muscles were tented up and the fascia was dissected off sharply using the curved Nicholson scissor. Rectus muscles were then in the midline sharply and peritoneum was entered bluntly. Gentle opposing traction was placed. At this time the vesicouterine peritoneum was identified. Scalpel was used to make a uterine incision in a low transverse fashion. The uterus was then entered bluntly gentle opposing traction was placed to extend this incision. Membranes were ruptured clear. 's head was brought to the uterine incision was delivered atraumatically. Cord was clamped and cut infant was handed to the waiting nursery team. The Placenta was removed from the uterus. The uterus was then removed from the abdominal cavity. The uterus was cleared of all clots and debris using a lap. At this time the uterine incision was reapproximated using #1 Vicryl in a running locked fashion. Hemostasis was appreciated. Posterior cul-de-sac was then cleared of all clots and debris. Uterus was placed back in the abdominal cavity. Gutters were cleared of all clots and debris. Uterine incision was reevaluated and noted to be of excellent hemostasis. hemoblast placed over uterine incision. At this time the peritoneum was grasped with Kellys reapproximated using #2 Vicryl suture in a running fashion. Fascia was then reapproximated using #1 Vicryl in a running fashion. subcutaneous layer was irrigated with NS and bovie used to coagulate any bleeding. Hemoblast placed. Subcu layer was reapproximated with #2 0 plain gut suture in an interrupted fashion. Subcu layer was closed using 4-0 Monocryl in a Yang needle in a subcu fashion. Dry sterile dressing was applied. Instrument lap needle count correct ?2. Anticipated normal postoperative course. Surgical findings: normal tubes and ovaries b/l Presentation: Vertex Amniotic Membrane Rupture Type: Artificial Amniotic Fluid Description: Clear Placental Delivery Description: Expressed Placenta Disposition: [facility] Specimen collected: No Cord Vessel Description: 3 Vessels Cord Entanglement: None A gender: Male (1 minute): 7 (5 minute): 8 Delayed Cord Clamping: Yes Reservation Manager civil clerk: Yes Bleach Plant Operator: Isabel Kamara Tasks completed by medical assistant ob gyn: Opening & closing, Dissecting tissue and Retracting Additional technical staff assistant?: No Complications Complications: No
[2025-03-05] MEDS: Oxytocin 15 Units/NS 250ml 15 UNITS/250 ML IV.SOLN 83 UNITS IV (08:25)
[2025-03-05] MEDS: Ketorolac 30 MG/ML Syringe IV ×3 (09:11→21:52)
[2025-03-05 09:18] LABS: Bedside Glucose 104 mg/dL (74-106)
[2025-03-05] MEDS: Nalbuphine 10 MG/ML Ampul 5 MG IV (09:47)
[2025-03-05] MEDS: Lactated Ringers 1,000 ML 100 ML IV (11:28)
[2025-03-05 17:30] LABS: Bedside Glucose 76 mg/dL (74-106)
[2025-03-05] MEDS: 0.9% Saline Lock 10 ML Syringe IV (21:52)
[2025-03-05] MEDS: Enoxaparin 40 MG/0.4 ML Syringe SC (21:52)
[2025-03-05] MEDS: DiphenhydrAMINE 25 MG Capsule PO (21:58)
[2025-03-05] MEDS: Rho(D) Immune Globulin 300 MCG (1500 Unit) Syringe IV (22:24)
[2025-03-06] VITALS (7 sets, daily range): BP systolic 97–112; BP diastolic 49–62; PULSE 67–92; RESP 16; TEMP 36.2–36.7; O2SAT 96–98
[2025-03-06] MEDS: Acetaminophen 500 MG Tablet 1000 MG PO ×4 (00:50→17:59)
[2025-03-06] MEDS: Ketorolac 30 MG/ML Syringe IV (03:28)
[2025-03-06] MEDS: 0.9% Saline Lock 10 ML Syringe IV ×2 (03:28→13:32)
[2025-03-06 06:37] LABS: Hematocrit 25.8 % (37-47); Hemoglobin 8.4 g/dL (12.0-15.0); Mean Corp Hgb Conc 32.6 g/dL (32-36); Mean Corpuscular Hgb 31.3 pg (27.0-32.0); Mean Corpuscular Volume 96.3 fL (81-99); Mean Platelet Vol. 10.9 fl (6.2-12.0); Platelet Count 172 K/mm3 (150-450); RBC Distribution Width CV 16.5 % (11.6-14.6); RBC Distribution Width SD 58.2 fl (35.1-43.9); Red Blood Count 2.68 M/mm3 (4.2-5.4)
[2025-03-06 07:19] LABS: Bedside Glucose 65 mg/dL (74-106)
[2025-03-06] MEDS: Senna/Docusate Sodium 1 Tablet PO (08:40)
[2025-03-06] MEDS: Enoxaparin 40 MG/0.4 ML Syringe SC ×2 (08:40→21:28)
[2025-03-06] MEDS: Ibuprofen 600 MG Tablet PO ×3 (08:40→21:29)
--- NOTE | 2025-03-06 11:53 | PCM.PN.OB ---
Subjective Subjective Doing well per patient and nursing staff. Ambulating and taking PO without difficulty. Voiding and passing flatus. Pain controlled. , services for assistance. Denies headache, visual changes, chest pain, shortness of breath, leg pain or increased bleeding. Lochia normal. Objective Data Objective Data Vital Signs: Vital Signs Temp Pulse Resp BP Pulse Ox O2 Del Method 97.9 F 67 16 107/49 L 97 Room Air 03/06/25 08:20 03/06/25 08:20 03/06/25 08:20 03/06/25 08:20 03/06/25 08:20 03/06/25 08:20 Oxygen Delivery Method Room Air Weight: 198 lb Body Mass Index (BMI) 41.3 Intake & Output: Intake and Output for Last 24 Hours 03/04/25 03/05/25 03/06/25 23:59 23:59 23:59 Intake Total 2226.67 / 2226.67 Output Total 1050 / 1050 300 / 300 Balance 1176.67 / 1176.67 -300 / -300 Lab / Micro Data 03/06/25 06:25 Labs: Laboratory Results - last 24 hr 03/05/25 05:45: Antibody Screen NEGATIVE 03/05/25 16:28: POC Glucose 76 03/06/25 06:25: WBC 6.0, RBC 2.68 L, Hgb 8.4 L, Hct 25.8 L, MCV 96.3, MCH 31.3, MCHC 32.6, RDW Std Deviation 58.2 H, RDW Coeff of Adore 16.5 H, Plt Count 172, MPV 10.9 03/06/25 06:59: POC Glucose 65 L ROS Constitutional Constitutional: Reports systems reviewed and no addt'l complaints, except as documented; Denies headache(s) Eyes Eyes: Denies acute decrease in peripheral vision, blurry vision or change in vision ENT HEENT: Reports systems reviewed and no addt'l complaints, except as documented Cardiovascular Cardiovascular: Denies chest pain or dizziness Respiratory/Chest Respiratory/Chest: Denies cough, dyspnea, dyspnea on exertion, shortness of breath at rest or shortness of breath with exertion Gastrointestinal Gastrointestinal: Denies abdominal pain, diarrhea, nausea or vomiting Genitourinary Genitourinary: Denies abdominal discomfort Musculoskeletal Musculoskeletal: Denies limited range of motion Integumentary Integumentary: Reports systems reviewed and no addt'l complaints, except as documented Neurologic Neurologic: Reports systems reviewed and no addt'l complaints, except as documented Psychiatric Psychiatric: Reports systems reviewed and no addt'l complaints, except as documented Endocrine Endocrinology: Reports systems reviewed and no addt'l complaints, except as documented Hematologic/Lymphatic Hematologic/Lymphatic: Reports systems reviewed and no addt'l complaints, except as documented Allergic/Immunologic Allergic/Immunologic: Reports systems reviewed and no addt'l complaints, except as documented Physical Exam Const alert and oriented x3 General Appearance: cooperative Orientation / Consciousness: awake, oriented to person, oriented to place and oriented to time Exam Limitations: no limitations HEENT normocephalic Head and Scalp: normal to inspection, normocephalic and atraumatic Face and Sinus: normal facial exam Eyes General Eye: normal appearance of both eyes Neck full ROM Chest Chest: symmetrical chest wall rise Resp normal respiratory effort and normal air movement Auscultation: clear to auscultation bilaterally Cardio regular rate, regular rhythm, S1 normal heart sound, S2 normal heart sound, no murmurs, no rub, no gallops and no clicks GI normal to inspection, nondistended, normoactive bowel sounds and non-tender GI Narrative: Fundus firm 2 below U. Dressing dry and intact. appearance of the vagina normal Narrative: Normal lochia rubra Bladder / Kidney Exam: no CVA tenderness Back/Spine normal ROM Extremity normal to inspection and full ROM Skin no rashes or lesions noted Neuro oriented x3, CN's II-XII intact bilaterally and moves all extremities Sensorium / Orientation: awake, alert and oriented to person Motor Exam: clonus absent Deep Tendon Reflexes: Rt Patellar (L4): 2+ and Lt Patellar (L4): 2+ Assessment & Plan (1) S/P repeat low transverse : (2) Acute blood loss anemia: (3) Gestational diabetes: PLAN: Plan 1) Routine POD#1 repeat LTCS 2) Vitals stable 3) I&O 4) Pain management 5) services PRN 6) Hgb 8.4, will give IV iron infusion 7) Possible preexisting DM. BG normal at this time, will hold insulin. 8) Planning D/C home tomorrow
[2025-03-06] MEDS: Iron Sucrose Complex 200 MG in 0.9% Normal Saline (100mL Bag) 100 ML 220 MG IV (13:25)
[2025-03-06] MEDS: oxyCODONE 5 MG Tablet PO ×2 (16:39→18:00)
[2025-03-07] MEDS: Acetaminophen 500 MG Tablet 1000 MG PO ×2 (00:35→06:20)
[2025-03-07] MEDS: Ibuprofen 600 MG Tablet PO ×2 (03:31→08:41)
[2025-03-07] MEDS: oxyCODONE 5 MG Tablet PO ×2 (03:32→10:37)
[2025-03-07 05:46] LABS: Bedside Glucose 79 mg/dL (74-106)
[2025-03-07 08:00] VITALS: BP 101/55; PULSE 69; RESP 16; TEMP 36.3
[2025-03-07] MEDS: Enoxaparin 40 MG/0.4 ML Syringe SC (08:40)
[2025-03-07] MEDS: Senna/Docusate Sodium 1 Tablet PO (08:41)
--- NOTE | 2025-03-07 09:12 | PCM.DC.SUM ---
Providers Date of Admission: 03/05/25 Primary Care Physician: Kellie Primary Care Phys Reason For Visit: REPEAT C SECTION Diagnosis Discharge Diagnosis (1) S/P repeat low transverse : Status: Acute Code(s): Z98.891 - History of uterine scar from previous surgery (2) Acute blood loss anemia: Status: Acute Code(s): D62 - Acute posthemorrhagic anemia (3) Gestational diabetes: Status: Acute Code(s): O24.419 - Gestational diabetes mellitus in , unspecified control Plan 1) Routine POD#1 repeat LTCS 2) Vitals stable 3) I&O 4) Pain management 5) services PRN 6) Hgb 8.4, will give IV iron infusion 7) Possible preexisting DM. BG normal at this time, will hold insulin. 8) Planning D/C home tomorrow Medications at Discharge Home Medications citalopram 20 mg tablet 20 mg PO DAILY anxiety 02/24/25 albuterol sulfate 90 mcg/actuation aerosol inhaler 2 puff inhalation Q4H PRN PRN asthma 03/01/25 fluticasone propionate 50 mcg/actuation nasal spray,suspension 2 spray intranasal DAILY nasal drainage 03/01/25 acetaminophen 500 mg tablet 1,000 mg (2 x 500 mg) PO Q6H #0 tabs 03/07/25 ibuprofen 600 mg tablet 600 mg PO Q6H #0 tabs 03/07/25 oxycodone 5 mg tablet 5 mg PO Q6H 7 days #28 tabs 03/07/25 sennosides 8.6 mg-docusate sodium 50 mg tablet (Stimulant Laxative Plus) 1 - 2 tab PO DAILY #60 tabs 03/07/25 Hospital Course Summary of Care Provided Minutes Spent on Discharge: 15 Hospital Course: Presented on 03/05/25 for repeat low transverse section. Postoperative course acute blood loss anemia, IV iron infusion. Discharg home on postopeative day #2 Weight / BMI Weight Weight: 198 lb Body Mass Index (BMI) 41.3 ABG / Lab / Microbiology Data 03/06/25 06:25 Laboratory: Laboratory Results - last 24 hr 03/07/25 05:19: POC Glucose 79 D/C Instructions DC O2, CPAP, BIPAP Needs Home O2 Discharge instructions: No Meaningful Use Info Meaningful Use Meaningful Use Diagnoses (Choose all that apply): None applicable Ischemic Stroke Statin Dosing Therapy Reference: STATIN DOSE THERAPY REFERENCE: * Patients > 75 years receive moderate or high dose statin therapy. * Patients 75 years or YOUNGER should receive HIGH intensity statin dose unless contraindicated. You will be required to document reason for non-treatment if statin daily dose does not meet guidelines. HIGH DOSE STATIN THERAPY DAILY Atorvastatin > than or = to 40 mg Rosuvastatin > than or = to 20 mg Amlodipine + Atorvastatin > than or = to 2.5/40 mg Ezetimibe + Simvastatin 10/80 mg Simvastatin 80mg Discharge Plan Admission Admit Date/Time: 03/05/25 05:49 Primary Reason for Your Visit: Repeat Section Attending Provider: Mayra Cam Primary Care Provider: Care Physician,Kellie Primary Discharge Orders/Prescriptions Prescriptions: New sennosides-docusate sodium [Stimulant Laxative Plus] 8.6-50 mg Tablet 1 - 2 tab PO DAILY Qty: 60 0RF oxycodone 5 mg Tablet 5 mg PO Q6H 7 Days Qty: 28 0RF ibuprofen 600 mg Tablet 600 mg PO Q6H Qty: 0 0RF acetaminophen 500 mg Tablet 1,000 mg PO Q6H Qty: 0 0RF Continued albuterol sulfate 90 mcg/actuation HFA aerosol inhaler 2 puff INHALATION Q4H PRN PRN (Reason: asthma ) fluticasone propionate 50 mcg/actuation spray,suspension 2 spray INTRANASAL DAILY citalopram 20 mg tablet 20 mg PO DAILY Discontinued insulin lispro 100 unit/mL insulin pen 1 sliding scale dose SUBCUT .COMPLEX Patient Comments: INJECT 5-10-10 UNITS PRIOR TO MEALS PLUS SLIDING SCALE UP TO 55 UNITS DAILY Rx Instructions: 1 sliding scale dose subcutaneously before meals; Humulin N NPH Insulin KwikPen 100 unit/mL (3 mL) insulin pen 35 unit subcut QHS aspirin 81 mg tablet,delayed release (DR/EC) 81 mg PO DAILY Referrals / Follow Up: Care Physician,No Primary [Primary Care Provider] - Disposition Disposition (needs filled in before D/C Order can be placed): Home, Self Care
--- NOTE | 2025-03-07 09:25 | PCM.PN.OB ---
Subjective Subjective Doing well per patient and nursing staff. Ambulating and taking PO without difficulty. Voiding and passing flatus. Pain controlled. , services for assistance. Denies headache, visual changes, chest pain, shortness of breath, leg pain or increased bleeding. Lochia normal. Objective Data Objective Data Vital Signs: Vital Signs Temp Pulse Resp BP Pulse Ox O2 Del Method 97.3 F L 69 16 101/55 L 97 Room Air 03/07/25 08:00 03/07/25 08:00 03/07/25 08:00 03/07/25 08:00 03/06/25 20:09 03/06/25 20:09 Oxygen Delivery Method Room Air Weight: 198 lb Body Mass Index (BMI) 41.3 Intake & Output: Intake and Output for Last 24 Hours 03/05/25 03/06/25 03/07/25 23:59 23:59 23:59 Intake Total 2226.67 / 2226.67 110 / 110 Output Total 1050 / 1050 300 / 300 Balance 1176.67 / 1176.67 -190 / -190 Lab / Micro Data 03/06/25 06:25 Labs: Laboratory Results - last 24 hr 03/07/25 05:19: POC Glucose 79 ROS Constitutional Constitutional: Reports systems reviewed and no addt'l complaints, except as documented; Denies headache(s) Eyes Eyes: Denies acute decrease in peripheral vision, blurry vision or change in vision ENT HEENT: Reports systems reviewed and no addt'l complaints, except as documented Cardiovascular Cardiovascular: Denies chest pain or dizziness Respiratory/Chest Respiratory/Chest: Denies cough, dyspnea, dyspnea on exertion, shortness of breath at rest or shortness of breath with exertion Gastrointestinal Gastrointestinal: Denies abdominal pain, diarrhea, nausea or vomiting Genitourinary Genitourinary: Denies abdominal discomfort Musculoskeletal Musculoskeletal: Denies limited range of motion Integumentary Integumentary: Reports systems reviewed and no addt'l complaints, except as documented Neurologic Neurologic: Reports systems reviewed and no addt'l complaints, except as documented Psychiatric Psychiatric: Reports systems reviewed and no addt'l complaints, except as documented Endocrine Endocrinology: Reports systems reviewed and no addt'l complaints, except as documented Hematologic/Lymphatic Hematologic/Lymphatic: Reports systems reviewed and no addt'l complaints, except as documented Allergic/Immunologic Allergic/Immunologic: Reports systems reviewed and no addt'l complaints, except as documented Physical Exam Const alert and oriented x3 General Appearance: cooperative Orientation / Consciousness: awake, oriented to person, oriented to place and oriented to time Exam Limitations: no limitations HEENT normocephalic Head and Scalp: normal to inspection, normocephalic and atraumatic Face and Sinus: normal facial exam Eyes General Eye: normal appearance of both eyes Neck full ROM Chest Chest: symmetrical chest wall rise Resp normal respiratory effort and normal air movement Auscultation: clear to auscultation bilaterally Cardio regular rate, regular rhythm, S1 normal heart sound, S2 normal heart sound, no murmurs, no rub, no gallops and no clicks GI normal to inspection, nondistended, normoactive bowel sounds and non-tender GI Narrative: Fundus firm 2 below U appearance of the vagina normal Narrative: Normal lochia rubra Bladder / Kidney Exam: no CVA tenderness Back/Spine normal ROM Extremity normal to inspection and full ROM Skin no rashes or lesions noted Neuro oriented x3 and moves all extremities Sensorium / Orientation: awake, alert and oriented to person Motor Exam: clonus absent Assessment & Plan (1) Postoperative pain: (2) Gestational diabetes: (3) Acute blood loss anemia: (4) S/P repeat low transverse : PLAN: Plan 1) Routine care, POD #2 2) Vitals signs stable 3) Pain controlled, oxycodone for discharge per request 4) , services PRN 5) D/C home 6) Follow up in 1 weeks and 6 weeks
--- NOTE | 2025-03-11 10:46 | NURSING ---
Patient here for a consult. F/U phone call done at this time. Patient states her pain and bleeding are decreasing. pt denies any headaches or visual disturbances. pt denies any questions regarding her d/c instructions. Pt states the infant is nursing well. pt denies any questions or concerns.
--- NOTE | 2025-03-11 15:04 | CASEMGMT ---
Social Work Assessment Labor and Delivery Unit Patient Address: [address] [place] [address] Phone number: [phone] Date of Referral: 03/05/25 Time of Referral:? 06 Referred By: Dr. Vincent Date of Intervention: 03/05/25?? Time of Intervention:? 1300 Reason for Referral:? father of mother uses substances Sw completed chart review and acknowledges social work consult due to family substance use history. Sw presented to bedside and introduced self to mother of baby (MOB- Val) and father of baby (FOB- Adonay Mcdonald). Also present was maternal grandma and MOB's older daughter, Fina. MOB stated that it was okay to complete assessment with visitors present. Sw explained reason for sw involvement and completed psychosocial assessment. History obtained from: medical records, MOB and FOB Household composition: Currently residing in the family home is MOB, FOB, MOB's older daughter: Fina (4) and baby when ready for discharge. Parents deny any housing concerns, stating their house is safe and secure. Patient's parent/guardian status:?MARQUEZ states that she and FOObi have been together since November of 2022 and have been now for 9 months. No concerns reported of domestic violence or intimate partner violence. baby is first baby for FOB and second for MOB. ? Medical History: ?MARQUEZ is 24 year old female who is 2, para 1-now 2 following labor and delivery of . MARQUEZ received routine care during with [facility]. MARQUEZ presented to hospital and delivered baby via repeat on 03/05/25 at 38 weeks gestation. Baby boy, named Sonali Chapman, was born weighing 6lb 16oz with apgars of 7 and 8 at one and five minutes of life, respectfully. MARQUEZ is breast feeding and baby will be followed by Dr. Vargas for pediatrics. Educational Status:? Both parents report to graduating from high school. 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 MARQUEZ states that she does not work at this time. Infant Supplies:?? All necessary baby supplies obtained, including: car seat, safe sleep space, clothes, diapers and wipes. Childcare/Caregiver(s):? MARQUEZ reports that she will be the primary caregiver to baby, along with FOObi when he is not working. Transportation:?? Both parents have their drivers license and reliable means of transportation, no barriers. Programs/Agencies Involved: ???MARQUEZ is connected to insurance through [employer]) and [place]. Children Services/Legal Issues:??No prior involvement with Children Services, no issues or concerns warranting referral to be made at this time. ? Behavioral Health Issues: ??Mental Health History:? SB denies mental health history. MOB states that she has been diagnosed with anxiety and BiPolar. MOB is prescribed Celexa by a psychiatrist that she sees at [facility]. MOB states that following her delivery with her first baby she did experience anxiety and depression. MOB states at that time she withdrew and did not want to leave her house. MOB states that she got connected to mental health supports and it helped significantly. ?? Substance Use History:Parents deny substance use history prior to and during . ?? Family History:??MOB states that her father has history of alcoholism. MOB states that she does not allow him to be alone with her children and he would not be a primary caregiver to baby. Sw educated MOB on importance of being aware of her genetic disposition and to always using healthy and safe coping skills opposed to seeking comfort from drugs or alcohol. ??? Drug Screens: ??No drug screens observed while completing chart review. Family/Social Stressors:? MOB denies any issues, concerns or stressors at this time. Support Systems: FOB, FOB's adopted mom, family, friends and maternal grandma. Depression/Shaken Baby/Safe Sleeping:? Sw educated parents on signs and symptoms of baby blues and depression and anxiety. Sw explained that due to MOB's mental health diagnoses and mental health history she is also at risk for experiencing psychosis and explained what those symptoms look like. Sw encouraged MOB to continue to meet regularly with her mental health providers at [facility] and to not stop taking any medications that she is prescribed. FOB asked appropriate questions about what to do in order to help MOB if she does suffer with during this period. Sw encouraged parents to have that conversation and prompted them on questions to ask each other. MOB denies feeling down, anxious or sad at this time, reporting to feel happy and glad that baby is here and he is healthy. Sw educated parents on shaken baby prevention and ABCs of safe sleep. Parents express understanding. ASSESSMENT:? MOB and baby admitted following labor and delivery. MOB required repeat for delivery and will not be discharged for couple of days. MOB with mental health history positive for anxiety and BiPolar. She is connected to mental health supports that include therapy and pharmacological assistance to help her manage her mental health symptoms. MOB states that counseling and medication have been helpful, and she hopes that this experience is much different than the first. MOB states that she did not have support from her daughter's father when she was born and that played a significant part in her mental health at that time. MOB states that she and FOB are in a much healthier relationship and she feels comfortable talking to him if she were to struggle. Although FOB states that he may not know how to help MOB he states that he would be able to recognize if she is struggling and would ask her mom to help. Conversation flowed naturally and parents were engaging throughout. Maternal grandma was observed holding baby and caring for him in a loving manner. Parents have all necessary baby things and have a lot of natural supports in place. PLAN:? No other services requested or indicated. MOB and baby to be discharged when medically ready. Parents were provided literature regarding: signs and symptoms of baby blues and mood and anxiety disorders, Help Me Grow, shaken baby prevention, ABCs of safe sleep and a list of county resources that are available for them should any needs present themselves. Jaylan Weaver, INTEGRATED CIRCUIT DESIGN ENGINEER, FOOD AND BEVERAGE MANAGER
== END 2025-03-07 11:45 | disposition home or self-care (01) | DRG 540 ==
PROVIDERS: Admitting Provider Obstetrics & Gynecology; Referring Provider Obstetrics & Gynecology; Visit Provider Obstetrics & Gynecology
PROC: 10D00Z1 Extraction of Products of Conception, Low, Open Approach (ICD-10-PCS; CPT 59514; principal; 2025-03-05 07:00)
DX: O34.211 Maternal care for low transverse scar from previous cesarean delivery (principal); O99.214 Obesity complicating childbirth; D62 Acute posthemorrhagic anemia; O24.424 Gestational diabetes mellitus in childbirth, insulin controlled; O90.81 Anemia of the puerperium; Z37.0 Single live birth; Z3A.37 37 weeks gestation of pregnancy
CPT/HCPCS: 59025; 59050; 82962; 85025; 85027; 85461; 86780; 86850; 86900; 86901; 90384; 99221; J1756; A4216; G0378; J2405; J2790; J2791